=== PATIENT | female | born 1990 | race Caucasian/White ===

== ENCOUNTER 2018-03-10 17:36 | Inpatient (IN) | payer OTHER, SELFPAY ==
[2018-03-10] VITALS (11 sets, daily range): BP systolic 124–144; BP diastolic 67–85; PULSE 110–134; RESP 15–20; TEMP 35.9–39.4; O2SAT 90–100; BMI 33.5; BMI 33.6
--- NOTE | 2018-03-10 18:11 | EKG12_ITS ---
Test Reason : EXAM Blood Pressure : / mmHG Vent. Rate : 122 BPM Atrial Rate : 122 BPM P-R Int : 134 ms QRS Dur : 078 ms QT Int : 316 ms P-R-T Axes : 041 014 019 degrees QTc Int : 450 ms Sinus tachycardia Otherwise normal ECG Confirmed by SUZIE BUCK, EUFEMIA ([id number]), editor in chief REBECCA PHILLIPS ([id number] on 03/15/2018 8:42:46 AM Referred By: JIMY Confirmed By:EUFEMIA LARSEN MD
--- NOTE | 2018-03-10 18:14 | RAD_ITS ---
STUDY: X-RAY - LEFT FOOT CLINICAL: Female, 28 years old. Diabetic with bilateral foot infections. TECHNIQUE: 3 view(s) of the foot. COMPARISON: None. FINDINGS: Normal talus, calcaneus, and tarsal bones. Normal visualized subtalar, talonavicular, calcaneocuboid, tarsal and tarsometatarsal articulations. There is deformity and postsurgical change of the distal aspect of the fourth metatarsal and the proximal aspect of the proximal phalanx of the fourth metatarsal. Normal metatarsophalangeal joint of the great toe. Normal tibial and fibular sesamoid bones. Normal interphalangeal joint of the great toe. Normal phalanges of the great toe. Normal second through fifth metatarsophalangeal joints. Normal interphalangeal joints and phalanges of the lesser toes. There is marked soft tissue swelling on plantar surface of the foot adjacent to the distal aspect of the first metatarsal with soft tissue gas. Findings are likely secondary to gas-forming organisms (perhaps clostridia perfringens). RAD/Foot min 3 Views IMPRESSION: Postsurgical changes of the fourth digit. Probable abscess with gas-forming organisms in the plantar surface of the foot adjacent to the distal aspect of the first metatarsal. Electronically Signed: Rashid Ho MD at 19:45 EDT , Service support ,
--- NOTE | 2018-03-10 18:14 | RAD_ITS ---
STUDY: X-RAY - RIGHT FOOT CLINICAL: Female, 28 years old. Diabetic with foot infection. TECHNIQUE: view(s) of the foot. COMPARISON: None. FINDINGS: Normal talus, calcaneus, and tarsal bones. Normal visualized subtalar, talonavicular, calcaneocuboid, tarsal and tarsometatarsal articulations. Normal metatarsi. Normal metatarsophalangeal joint of the great toe. Normal tibial and fibular sesamoid bones. Normal interphalangeal joint of the great toe. Normal phalanges of the great toe. Normal second through fifth metatarsophalangeal joints. Normal interphalangeal joints and phalanges of the lesser toes. There is marked soft tissue swelling on the plantar surface of the foot adjacent to the calcaneus. There is also marked soft tissue swelling on the plantar surface of the foot adjacent to the head of the first metatarsal and the distal phalanx of the first metatarsal. There is soft tissue gas. Findings are compatible with infection with a gas-forming organism (likely, Clostridium perfringens). RAD/Foot min 3 Views IMPRESSION: Marked soft tissue swelling on the plantar surface of the foot with soft tissue gas most compatible with infection with a gas-forming organism. Electronically Signed: Rashid Ho MD at 19:46 EDT , Service support ,
[2018-03-10 18:40] LABS: Absolute Lymphocyte Count 2.39 X10^3/ul (0.83-4.51); Absolute Neutrophil Count 12.7 X10^3/uL (2.0-7.7); Basophil# 0.04 X10^3/uL; Basophil% 0.2 % (0-1); Eosinophil# 0.13 X10^3/uL; Eosinophils% 0.8 % (0-5); Hematocrit 34.3 % (37-47); Hemoglobin 11.4 g/dl (12.0-15.0); Lymphocyte # 2.39 X10^3/ul (4.0); Lymphocyte % 14.4 % (19-41); Mean Corp Hgb Conc 33.2 g/gl (32-36); Mean Corpuscular Hgb 26.1 pg (27.0-32.0); Mean Corpuscular Volume 78.5 fL (81-99); Mean Platelet Vol. 9.1 fl (6.2-12.0); Monocyte# 1.37 X10^3/uL; Monocyte% 8.2 % (0-10); Neutrophil # 12.67 X10^3/uL (2.7-7.7); Neutrophil % 76.2 % (47-70); POSITIVE COUNT NO; POSITIVE DIFFERENTIAL NO; POSITIVE MORPHOLOGY NO; Platelet Count 362 K/mm3 (150-450); RBC Distribution Width CV 12.6 % (11.6-14.6); RBC Distribution Width SD 36.2 fl (35.1-43.9); Red Blood Count 4.37 M/mm3 (4.2-5.4); White Blood Count 16.6 K/mm3 (4.4-11.0)
[2018-03-10 18:44] LABS: International Normalized Ratio 1.1; Prothrombin Time (Protime)PT. 14.5 SECONDS (11.7-14.9)
[2018-03-10 18:45] LABS: Partial Thromboplast Time 37.9 Seconds (24.1-36.2)
[2018-03-10] MEDS: 0.9% Normal Saline 1,000 ML 150 ML IV (18:51)
[2018-03-10 19:02] LABS: ALB/GLOB Ratio 0.6 RATIO (0.9-2.4); AST(SGOT) 5 U/L (15-37); Alanine Aminotransfer ALT/SGPT 13 U/L (13-56); Albumin, Serum 3.1 g/dL (3.2-5.0); Alkaline Phosphatase 139 U/L (45-117); Anion Gap 13 (5-15); BUN 6 mg/dL (7-18); BUN/Creat Ratio 7.1 RATIO (10-20); Chloride 93 mmol/L (98-107); Creatinine, Serum 0.85 mg/dL (0.55-1.02); EST Glomerular Filtration Rate 85 mL/min (>60); Est Glom Filt Rate - Afr Amer 103 mL/min (>60); Estimated Creatinine Clearance 106.56 ml/min; Globulin 5.4 g/dL (2.2-4.2); Glucose 383 mg/dL (74-106); Potassium 3.8 mmol/L (3.5-5.1); Protein, Total 8.5 g/dL (6.4-8.2); Sodium Level 130 mmol/L (136-145)
--- NOTE | 2018-03-10 19:10 | RAD_ITS ---
STUDY: X-RAY CHEST REASON FOR EXAM: Female, 28 years old. Sepsis. TECHNIQUE: Single frontal view of the chest. COMPARISON: None. FINDINGS: The lungs are clear and expanded. There is no demonstrated pleural abnormality. Normal size heart. Normal mediastinum and clyde. Normal visualized pulmonary arteries. Normal visualized aortic arch and descending thoracic aorta. Normal visualized thoracic spine. Normal visualized ribs, clavicles, and shoulders. There is no demonstrated abnormality of the visualized soft tissue structures of the upper abdomen. RAD/Chest 1 View (Portable) IMPRESSION: No significant abnormality identified. Electronically Signed: Rashid Ho MD at 19:42 EDT , Service support ,
[2018-03-10] MEDS: Acetaminophen 500 MG Tablet 1000 MG PO (19:13)
[2018-03-10 19:15] LABS: Lactic Acid 1.2 mmol/L (0.4-2.0); Pregnancy, Serum, hCG Quali. NEGATIVE Negative (0-9 Nonpreg)
--- NOTE | 2018-03-10 19:34 | PCM.HP.STD ---
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 insulin use: with remote computer terminal operator use Diabetes mellitus complication status: with unspecified complications Qualified Code(s): E11.8 - Type 2 diabetes mellitus with unspecified complications; Z79.4 - jail (current) use of insulin History of Present Illness Date of Admission: 03/10/18 Chief Complaint: LLE redness, edema, pain, purulent drainage from opened ulcer wound The patient is a 28 y/o F w/ PMHx: Diabetes mellitus type II (Following w/ Endocrinology [place]), Obesity noting she has lost >25 lbs, History of MRSA Infection prior, 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 ED on 03/10/18 with history of chronic RLE plantar 1st metatarsal region ulcer as well as arch ulcer following with wound care in addition to history of recent L 1st metatarsal wound in January which she notes had been healed; however, on Tuesday she noted it opened up and began to drain purulent material which worsened over the last 24 hours with onset erythema w/ streaking on day of presentation up to her knee, edema, worsened pain to the L foot with no associated prior nausea, emesis, fever of chills. 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 She has been following she notes with Wound and Endocrine in [place] prior to her move for the current semester. She notes she was originally diagnosed with Diabetes in 2015 per a physician in [place] and that her Fuse Assembler in [place] has verified that she is a type II Diabetic. She cannot recall her last HgbA1c. In the ED work-up included T103, heart rate 134, BP 144/71, respiratory rate 20, 97% on room air, CBC with WBC 16.6, hemoglobin 11.6, platelet 362 with left shift, coags with PTT 37.9 otherwise unremarkable, CMP with sodium 130, chloride 93, BUN/creatinine 6/0.85, glucose 383, lactic acid 1.2, AST/ALT 5/13, alkaline phosphatase 139, negative test, acetone negative, wound culture left foot ?2 from aspiration from blister on the L foot which yielded only yellow fluid pending per ED with added MRSA wound per hospitalist, blood culture ?2 pending per ED, plain film w/ gas along the 1st metatarsal region, EKG w/ Sinus tachycardia without acute evidence of ischemia. In the ED patient administered Tylenol, normal saline, Zyvox, cefepime. Dr. Barkley was consulted and noted intention for immediate evaluation and operative intervention. Patient with reported history of heart stopping during prior surgery for unclear reasons, she notes also follow-up evaluation with normal cardiac work-up including ECHO and repeat EKGs with requested records per ED for [employer] [facility] history. Past Medical History Past Medical History (Chronic Problems): Chronic Problems Obesity (BMI 30.0-34.9) (Chronic) Diabetes mellitus, type II (Chronic) Allergies clindamycin Allergy (Verified 03/10/18 17:37) Hives vancomycin Adverse Reaction (Verified 03/10/18 17:37) Hives Home Medications: Ambulatory Orders Medication Instructions Recorded Cephalexin [Cephalexin] 500 mg PO BID 03/10/18 Cholecalciferol (Vitamin D3) 2,000 unit PO DAILY 03/10/18 [Vitamin D3] Insulin Glargine [Lantus (BKC)] 62 units SC QHS 03/10/18 Insulin Lispro [Humalog KwikPen] 0 unit SQ TID 03/10/18 Surgical History: - - Left lower extremity podiatric surgery including 2013 removal of foreign bodies and 2016 intervention on the fourth metatarsal as well as right middle finger surgery following injury in her childhood. 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 Smoking Status: Never smoker Tobacco Use: Non-smoker Alcohol: Rare Drugs: None - *Family History Maternal History Items: - - Patient notes a maternal family history of diabetes. Paternal History Items: - - Patient notes a paternal family history of prostate cancer, hypertension and diabetes. Review of Systems Constitutional: Reports: Anorexia, Fever - No fever noted prior to current presentation but febrile in the ED upon presentation., Malaise, Weakness, Fatigue. Denies: Chills, Weight Change HEENT: Denies: Head Aches, Sinus Congestion, Sinus Drainage Cardiovascular: Denies: Chest Pain, Palpitations Respiratory: Denies: Cough, Shortness of breath at rest, Sputum production Gastrointestinal: Denies: Abdominal Pain, Nausea, Vomiting Genitourinary: Denies: Dysuria Musculoskeletal: Reports: Foot Pain. Denies: Joint Pain, Joint Tenderness Skin: Reports: Skin Changes, Wounds. Denies: Rash Neurological: Denies: Numbness, Tingling, Focal weakness Psychiatric: Denies: Anxiety, Depression, Homicidal Ideations, Suicidal Ideations Hematologic/ Lymphatic: Denies: Easy Bruising, Easy Bleeding VTE Information - Inpt Only VTE Present on Admission: No VTE Mechan Device Prophylaxis: SCD's VTE Pharm Prophylaxis ordered?: No Reason prophylaxis not ordered:: Medical Contraindication - Holding chemoprophylaxis upon admission for possible OR directly. Patient Problems: Active and Suspected Problems Sepsis (Acute) Cellulitis (Acute) Subjective: Seated upright in the ED bed, fatigued appearance, NAD. Objective: Physical Examination: General: awake, alert, oriented x 3 and cooperative, seated upright in the ED bed in no apparent distress, fatigued appearing. Skin: normal color, turgor, no icterus, cyanosis except notable BL LE wounds, RLE w/ 1st metatarsal-2nd metatarsal region chronic non-infected appearing wound in addition to plantar region wound, non-infected appearing as well as infected LLE 1st metatarsal diabetic ulcer/wound w/ purulent drainage, yellow mixed w/ blood w/ notable thickened skin around this region w/ erythema extending up from medial foot to calf w/ streaking, crepitus noted along the medial arch region, TTP, warm to touch, TTP. HEENT: AT/NC, EOMI, PERRLA, moderately dry MM, no carotid bruits or JVD noted. Lungs: CTA bilaterally, moderate effort, mild decrease BL bases, no rales, ronchi or wheezing. Heart: Tachycardic w/ regular rhythm; no gallop, rub audible. Abdomen: soft, obese, NTTP, ND, normal BS, no HSM. Extremities: no cyanosis, clubbing, see skin. Neurological: patient awake, alert, oriented x 3; cognitive function intact; pupils equally reactive to light and accomodation; cranial nerves II-XII grossly normal, moving all 4 extremities, no focal deficits, strength moderately to severely globally decreased secondary to acute presentation. Psychiatric: affect appears fatigued, response to current presentation not appropriate, does not seem concerned she may loose some of her LLE, no acute evidence of depressive or anxiety feelings but admits to recent increased anxiety with recently starting school semester. - Physical Exam Vital Signs Temp Pulse Resp BP Pulse Ox 103 F H 121 H 20 H 124/74 H 97 03/10/18 19:03 03/10/18 19:03 03/10/18 19:03 03/10/18 19:03 03/10/18 19:03 Oxygen Delivery Method Room Air Weight: 233 lb 14.567 oz Body Mass Index (BMI) 33.5 Laboratory Tests Past 24 Hrs 03/10/18 03/10/18 03/10/18 18:10 18:10 18:10 WBC 16.6 H RBC 4.37 Hgb 11.4 L Hct 34.3 L MCV 78.5 L MCH 26.1 L MCHC 33.2 RDW 12.6 RDW Differential 36.2 Plt Count 362 MPV 9.1 Immature Gran % (Auto) 0.200 Neut % (Auto) 76.2 H Lymph % (Auto) 14.4 L Motley % (Auto) 8.2 Eos % (Auto) 0.8 Baso % (Auto) 0.2 Absolute Neuts (auto) 12.7 H Absolute Lymphs (auto) 2.39 Total Counted Not Reportable PT 14.5 INR 1.1 APTT 37.9 H Sodium 130 L Potassium 3.8 Chloride 93 L Carbon Dioxide 24.0 Anion Gap 13 BUN 6 L Creatinine 0.85 Estim Creat Clear Calc 106.56 Est GFR (MDRD) Af Amer 103 Est GFR (MDRD) Non-Af 85 BUN/Creatinine Ratio 7.1 L Glucose 383 H Lactic Acid Calcium 9.0 Total Bilirubin 0.50 AST 5 L ALT 13 Alkaline Phosphatase 139 H Total Protein 8.5 H Albumin 3.1 L Globulin 5.4 H Albumin/Globulin Ratio 0.6 L Serum , Qual Acetone Level 03/10/18 03/10/18 03/10/18 18:10 18:10 18:10 WBC RBC Hgb Hct MCV MCH MCHC RDW RDW Differential Plt Count MPV Immature Gran % (Auto) Neut % (Auto) Lymph % (Auto) Motley % (Auto) Eos % (Auto) Baso % (Auto) Absolute Neuts (auto) Absolute Lymphs (auto) Total Counted PT INR APTT Sodium Potassium Chloride Carbon Dioxide Anion Gap BUN Creatinine Estim Creat Clear Calc Est GFR (MDRD) Af Amer Est GFR (MDRD) Non-Af BUN/Creatinine Ratio Glucose Lactic Acid 1.2 Calcium Total Bilirubin AST ALT Alkaline Phosphatase Total Protein Albumin Globulin Albumin/Globulin Ratio Serum , Qual NEGATIVE Acetone Level NEGATIVE Assessment/Plan All Active Problems Sepsis (Acute) Cellulitis (Acute) The patient is a 28 y/o F w/ PMHx: Diabetes mellitus type II, Obesity noting she has lost >25 lbs, History of MRSA Infection prior, 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 ED on 03/10/18 with history of chronic RLE plantar 1st metatarsal region ulcer as well as arch ulcer following with wound care in addition to history of recent L 1st metatarsal wound in January which she notes had been healed; however, on Tuesday she noted it opened up and began to drain purulent material which worsened over the last 24 hours with onset erythema w/ streaking on day of presentation up to her knee, edema, worsened pain to the L foot with no associated prior nausea, emesis, fever of chills. (1) Acute Sepsis secondary to Infected L 1st Metatarsal Diabetic Ulcer, Wound w/ Cellulitis: Requested records from [facility] to assure cardiac evaluation performed following unclear operative events appropriate prior to transitioning to OR. Following review of this material, if appropriate plan OR intervention at [facility]. If remains stable following OR if appropriate [facility] Candidate, given not severe sepsis, will admit to [facility] on telemetry, maintain on aggressive NS, pending Wound Cx, added Wound MRSA PCR, maintain on BSA given allergies w/ zyvox and cefepime pending cultures, plan repeat CBC in AM, continue affected extremity elevation above heart when seated and in bed, monitor erythema outline with VS checks with continued Podiatry evaluation in addition to ID consultation given complicated infectious/abx allergy history. Will need to be closely followed and would benefit from referral to [facility]. Given patient history of frequent BL LE wounds, may benefit aside from aggressive lifestyle interventions for vascular evaluation consideration if issues ongoing w/ wounds despite improvement in her DM control and self-care. (2) Diabetes mellitus type II, Suspect Poorly Controlled: Continue home insulin regimen, HgbA1c pending, nutrition consulted for diet and education, ADA diet, accu checks w/ ISS. Will need referral to Endocrinology locally, would be a good candidate to follow w/ [facility]. (3) Obesity: Weight loss and lifestyle changes encouraged, nutrition consulted for education and teaching given current presentation with diabetes mellitus type II suspected to be poorly controlled. (4) DVT Prophylaxis: SCDs, hold chemoprophylaxis given planned OR, following would start lovenox once cleared per Podiatry. Code Visit Inpatient E&M: 00517 Init Hosp L3
[2018-03-10] MEDS: Linezolid 600 MG 600 MG/300 ML BAG 200 MG IV (19:41)
--- NOTE | 2018-03-10 19:43 | HP.PCM_ITS ---
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 Diabetes mellitus complication status: with unspecified complications Qualified Code(s) : E11.8 - Type 2 diabetes mellitus with unspecified complications; 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 History of Present Illness Date of Admission: 03/10/18 Chief Complaint: LLE redness, edema, pain, purulent drainage from opened ulcer wound The patient is a 28 y/o F w/ PMHx: Diabetes mellitus type II (Following w/ Endocrinology [place]), Obesity noting she has lost >25 lbs, History of MRSA Infection prior, History of L 4th Metatarsal L Osteomyelitis who presents to the [facility] ED on 03/10/18 with history of chronic RLE plantar 1st metatarsal region ulcer as well as arch ulcer following with wound care in addition to history of recent L 1st metatarsal wound in January which she notes had been healed; however , on Tuesday she noted it opened up and began to drain purulent material which worsened over the last 24 hours with onset erythema w/ streaking on day of presentation up to her knee, edema, worsened pain to the L foot with no associated prior nausea, emesis, fever of chills. 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 She has been following she notes with Wound and Endocrine in [place] prior to her move for the current semester. She notes she was originally diagnosed with Diabetes in 2015 per a physician in [place] and that her Acute Care Surgeon in [place] has verified that she is a type II Diabetic. She cannot recall her last HgbA1c. In the ED work-up included T103, heart rate 134, BP 144/71, respiratory rate 20, 97% on room air, CBC with WBC 16.6, hemoglobin 11.6, platelet 362 with left shift, coags with PTT 37.9 otherwise unremarkable, CMP with sodium 130, chloride 93, BUN/creatinine 6/0.85 , glucose 383, lactic acid 1.2, AST/ALT 5/13, alkaline phosphatase 139, negative test, acetone negative, wound culture left foot ?2 from aspiration from blister on the L foot which yielded only yellow fluid pending per ED with added MRSA wound per hospitalist, blood culture ?2 pending per ED, plain film w/ gas along the 1st metatarsal region, EKG w/ Sinus tachycardia without acute evidence of ischemia. In the ED patient administered Tylenol, normal saline, Zyvox, cefepime. Dr. Barkley was consulted and noted intention for immediate evaluation and operative intervention. Patient with reported history of heart stopping during prior surgery for unclear reasons, she notes also follow-up evaluation with normal cardiac work-up including ECHO and repeat EKGs with requested records per ED for [facility] history. Past Medical History Past Medical History (Chronic Problems): Chronic Problems Obesity (BMI 30.0-34.9) (Chronic) Diabetes mellitus, type II (Chronic) Allergies clindamycin Allergy (Verified 03/10/18 17:37) Hives vancomycin Adverse Reaction (Verified 03/10/18 17:37) Hives Home Medications: Ambulatory Orders Medication Instructions Recorded Cephalexin [Cephalexin] 500 mg PO BID 03/10/18 Cholecalciferol (Vitamin D3) 2,000 unit PO DAILY 03/10/18 [Vitamin D3] Insulin Glargine [Lantus (BKC)] 62 units SC QHS 03/10/18 Insulin Lispro [Humalog KwikPen] 0 unit SQ TID 03/10/18 Surgical History: - - Left lower extremity podiatric surgery including 2013 removal of foreign bodies and 2016 intervention on the fourth metatarsal as well as right middle finger surgery following injury in her childhood. 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 Smoking Status: Never smoker Tobacco Use: Non-smoker Alcohol: Rare Drugs: None - *Family History Maternal History Items: - - Patient notes a maternal family history of diabetes. Paternal History Items: - - Patient notes a paternal family history of prostate cancer, hypertension and diabetes. Review of Systems Constitutional: Reports: Anorexia, Fever - No fever noted prior to current presentation but febrile in the ED upon presentation., Malaise, Weakness, Fatigue. Denies: Chills, Weight Change HEENT: Denies: Head Aches, Sinus Congestion, Sinus Drainage Cardiovascular: Denies: Chest Pain, Palpitations Respiratory: Denies: Cough, Shortness of breath at rest, Sputum production Gastrointestinal: Denies: Abdominal Pain, Nausea, Vomiting Genitourinary: Denies: Dysuria Musculoskeletal: Reports: Foot Pain. Denies: Joint Pain, Joint Tenderness Skin: Reports: Skin Changes, Wounds. Denies: Rash Neurological: Denies: Numbness, Tingling, Focal weakness Psychiatric: Denies: Anxiety, Depression, Homicidal Ideations, Suicidal Ideations Hematologic/ Lymphatic: Denies: Easy Bruising, Easy Bleeding VTE Information - Inpt Only VTE Present on Admission: No VTE Mechan Device Prophylaxis: SCD's VTE Pharm Prophylaxis ordered?: No Reason prophylaxis not ordered:: Medical Contraindication - Holding chemoprophylaxis upon admission for possible OR directly. Patient Problems: Active and Suspected Problems Sepsis (Acute) Cellulitis (Acute) Subjective: Seated upright in the ED bed, fatigued appearance, NAD. Objective: Physical Examination: General: awake, alert, oriented x 3 and cooperative, seated upright in the ED bed in no apparent distress, fatigued appearing. Skin: normal color, turgor, no icterus, cyanosis except notable BL LE wounds, RLE w/ 1st metatarsal-2nd metatarsal region chronic non-infected appearing wound in addition to plantar region wound, non-infected appearing as well as infected LLE 1st metatarsal diabetic ulcer/wound w/ purulent drainage, yellow mixed w/ blood w/ notable thickened skin around this region w/ erythema extending up from medial foot to calf w/ streaking, crepitus noted along the medial arch region, TTP, warm to touch, TTP. HEENT: AT/NC, EOMI, PERRLA, moderately dry MM, no carotid bruits or JVD noted. Lungs: CTA bilaterally, moderate effort, mild decrease BL bases, no rales, ronchi or wheezing. Heart: Tachycardic w/ regular rhythm; no gallop, rub audible. Abdomen: soft, obese, NTTP, ND, normal BS, no HSM. Extremities: no cyanosis, clubbing, see skin. Neurological: patient awake, alert, oriented x 3; cognitive function intact; pupils equally reactive to light and accomodation; cranial nerves II-XII grossly normal, moving all 4 extremities, no focal deficits, strength moderately to severely globally decreased secondary to acute presentation. Psychiatric: affect appears fatigued, response to current presentation not appropriate, does not seem concerned she may loose some of her LLE, no acute evidence of depressive or anxiety feelings but admits to recent increased anxiety with recently starting school semester. - Physical Exam Vital Signs Temp Pulse Resp BP Pulse Ox 103 F H 121 H 20 H 124/74 H 97 03/10/18 19:03 03/10/18 19:03 03/10/18 19:03 03/10/18 19:03 03/10/18 19:03 Oxygen Delivery Method Room Air Weight: 233 lb 14.567 oz Body Mass Index (BMI) 33.5 Laboratory Tests Past 24 Hrs 03/10/18 03/10/18 03/10/18 18:10 18:10 18:10 WBC 16.6 H RBC 4.37 Hgb 11.4 L Hct 34.3 L MCV 78.5 L MCH 26.1 L MCHC 33.2 RDW 12.6 RDW Differential 36.2 Plt Count 362 MPV 9.1 Immature Gran % (Auto) 0.200 Neut % (Auto) 76.2 H Lymph % (Auto) 14.4 L [place] % (Auto) 8.2 Eos % (Auto) 0.8 Baso % (Auto) 0.2 Absolute Neuts (auto) 12.7 H Absolute Lymphs (auto) 2.39 Total Counted Not Reportable PT 14.5 INR 1.1 APTT 37.9 H Sodium 130 L Potassium 3.8 Chloride 93 L Carbon Dioxide 24.0 Anion Gap 13 BUN 6 L Creatinine 0.85 Estim Creat Clear Calc 106.56 Est GFR (MDRD) Af Amer 103 Est GFR (MDRD) Non-Af 85 BUN/Creatinine Ratio 7.1 L Glucose 383 H Lactic Acid Calcium 9.0 Total Bilirubin 0.50 AST 5 L ALT 13 Alkaline Phosphatase 139 H Total Protein 8.5 H Albumin 3.1 L Globulin 5.4 H Albumin/Globulin Ratio 0.6 L Serum , Qual Acetone Level 03/10/18 03/10/18 03/10/18 18:10 18:10 18:10 WBC RBC Hgb Hct MCV MCH MCHC RDW RDW Differential Plt Count MPV Immature Gran % (Auto) Neut % (Auto) Lymph % (Auto) [place] % (Auto) Eos % (Auto) Baso % (Auto) Absolute Neuts (auto) Absolute Lymphs (auto) Total Counted PT INR APTT Sodium Potassium Chloride Carbon Dioxide Anion Gap BUN Creatinine Estim Creat Clear Calc Est GFR (MDRD) Af Amer Est GFR (MDRD) Non-Af BUN/Creatinine Ratio Glucose Lactic Acid 1.2 Calcium Total Bilirubin AST ALT Alkaline Phosphatase Total Protein Albumin Globulin Albumin/Globulin Ratio Serum , Qual NEGATIVE Acetone Level NEGATIVE Assessment/Plan All Active Problems Sepsis (Acute) Cellulitis (Acute) The patient is a 28 y/o F w/ PMHx: Diabetes mellitus type II, Obesity noting she has lost >25 lbs, History of MRSA Infection prior, History of L 4th Metatarsal L Osteomyelitis who presents to the [facility] ED on 03/10/18 with history of chronic RLE plantar 1st metatarsal region ulcer as well as arch ulcer following with wound care in addition to history of recent L 1st metatarsal wound in January which she notes had been healed; however, on Tuesday she noted it opened up and began to drain purulent material which worsened over the last 24 hours with onset erythema w/ streaking on day of presentation up to her knee , edema, worsened pain to the L foot with no associated prior nausea, emesis, fever of chills. (1) Acute Sepsis secondary to Infected L 1st Metatarsal Diabetic Ulcer, Wound w / Cellulitis: Requested records from [facility] to assure cardiac evaluation performed following unclear operative events appropriate prior to transitioning to OR. Following review of this material, if appropriate plan OR intervention at [facility]. If remains stable following OR if appropriate [facility] Candidate, given not severe sepsis, will admit to [facility] on telemetry, maintain on aggressive NS, pending Wound Cx, added Wound MRSA PCR, maintain on BSA given allergies w/ zyvox and cefepime pending cultures, plan repeat CBC in AM, continue affected extremity elevation above heart when seated and in bed, monitor erythema outline with VS checks with continued Podiatry evaluation in addition to ID consultation given complicated infectious/abx allergy history. Will need to be closely followed and would benefit from referral to [facility]. Given patient history of frequent BL LE wounds, may benefit aside from aggressive lifestyle interventions for vascular evaluation consideration if issues ongoing w/ wounds despite improvement in her DM control and self-care. (2) Diabetes mellitus type II, Suspect Poorly Controlled: Continue home insulin regimen, HgbA1c pending, nutrition consulted for diet and education, ADA diet, accu checks w/ ISS. Will need referral to Endocrinology locally, would be a good candidate to follow w/ [facility]. (3) Obesity: Weight loss and lifestyle changes encouraged, nutrition consulted for education and teaching given current presentation with diabetes mellitus type II suspected to be poorly controlled. (4) DVT Prophylaxis: SCDs, hold chemoprophylaxis given planned OR, following would start lovenox once cleared per Podiatry. Code Visit Inpatient E&M: 22937 Init Hosp L3
[2018-03-10 19:56] LABS: Bedside Glucose 370 mg/dL (70-110)
--- NOTE | 2018-03-10 21:03 | CON.PCM_ITS ---
Reason for Consult Date of Consultation: 03/10/18 Reason for Consultation: Bilateral foot infection History of Present Illness: The patient is a 28 year old female with history of diabetes presented to the ER today for bilateral foot infection, left significantly worsen than right. She relates to history of osteomyelitis to the left 4th metatarsal, was treated with surgery and long course of IV antibiotics last year in [place] - she relates foot healed and did well. She relates she has now developed ulcerations to both feet, she claims the left foot ulcer just started a couple days ago, and just today turned red and swollen, which she relates is why she came to the ER today. She does relate the left foot is painful. Temp is 103F, WBC elevated at 16, left foot xrays with gas in the tissues. Right foot with no gas on xrays. She relates she is originally from [facility] [place], here for college at [employer]. She relates she lives in [facility] with [facility]. She does not want me to call her family tonneil. She does not recall her last ha1c. Past Medical History Past Medical History (Chronic Problems): Chronic Problems Obesity (BMI 30.0-34.9) (Chronic) Diabetes mellitus, type II (Chronic) Allergies clindamycin Allergy (Verified 03/10/18 17:37) Hives vancomycin Allergy (Verified 03/10/18 20:10) Hives/makes my heart race Home Medications: Ambulatory Orders Medication Instructions Recorded Cephalexin [Cephalexin] 500 mg PO BID 03/10/18 Cholecalciferol (Vitamin D3) 2,000 unit PO DAILY 03/10/18 [Vitamin D3] Insulin Glargine [Lantus (BKC)] 62 units SC QHS 03/10/18 Insulin Lispro [Humalog KwikPen] 0 unit SQ TID 03/10/18 Surgical History: - - Left lower extremity podiatric surgery including 2013 removal of foreign bodies and 2017 intervention on the fourth metatarsal as well as right middle finger surgery following injury in her childhood. 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 Smoking Status: Never smoker Tobacco Use: Non-smoker Alcohol: Rare Drugs: None - *Family History Maternal History Items: - - Patient notes a maternal family history of diabetes. Paternal History Items: - - Patient notes a paternal family history of prostate cancer, hypertension and diabetes. Review of Systems Constitutional: Denies: Chills, Fever Gastrointestinal: Denies: Nausea, Vomiting Musculoskeletal: Reports: - - hx of osteomyelitis left foot Skin: Reports: Wounds Patient Problems: Active and Suspected Problems Sepsis (Acute) Cellulitis (Acute) - Physical Exam General: Alert, Oriented x3, Cooperative, No apparent distress Extremities: Capillary Refill Less than 3 Seconds, No Calf Tenderness, Edema - bilateral foot - left worse, Peripheral Pulses Normal, - - Significant abscess and cellulitis with blistering necrosis to the medial foot consistent with gas gangrene left foot, there is ulceration sub 1st metatarsal head left foot with necrosis and nonviable tissue along with drainage purulence with very minimal pressure, there is maloder present - foot very tense and hot, ulceration is down to muscle/tendon and probes deep in foot, there is lymphangitic streaking present. There is crepitus to the foot c/w gas in the tissues. Right foot with ulceration plantar hallux with localized cellulitis to the hallux ulcer down to subcutaneous tissue, there is ulceration sub 4th metatarsal head with cellulitis to the plantar arch as well as to the dorsal central forefoot, ulcer down to muscle tendon - there is significant nonviable tissue to the ulceration sites - there is drainage c/w infection, there is some gas in the tissues at level of the 4th met ulcerations. Sensation diminished consistent with peripheral neuropathy, motor function intact to the foot/ankle. Vascular status intact to bilateral foot, with CFT < 2 seconds to all toes bilateral and normal pedal pulses bilateral. There is no POP or pain on ROM to the right foot or ankle. She does pain pain to the forefoot of the left foot, no pain to the left ankle. No evidence of DVT bilateral. Psych/Mental Status: Normal Affect, Appropriate, Alert and oriented to time, place, person, mood and affect Vital Signs Temp Pulse Resp BP Pulse Ox 101.8 F H 126 H 20 H 143/84 H 97 03/10/18 19:52 03/10/18 20:03 03/10/18 20:03 03/10/18 20:03 03/10/18 20:03 Oxygen Delivery Method Room Air Weight: 106.1 kg Body Mass Index (BMI) 33.5 Laboratory Tests Past 24 Hrs 03/10/18 03/10/18 03/10/18 18:10 18:10 18:10 WBC 16.6 H RBC 4.37 Hgb 11.4 L Hct 34.3 L MCV 78.5 L MCH 26.1 L MCHC 33.2 RDW 12.6 RDW Differential 36.2 Plt Count 362 MPV 9.1 Immature Gran % (Auto) 0.200 Neut % (Auto) 76.2 H Lymph % (Auto) 14.4 L [place] % (Auto) 8.2 Eos % (Auto) 0.8 Baso % (Auto) 0.2 Absolute Neuts (auto) 12.7 H Absolute Lymphs (auto) 2.39 Total Counted Not Reportable PT 14.5 INR 1.1 APTT 37.9 H Sodium 130 L Potassium 3.8 Chloride 93 L Carbon Dioxide 24.0 Anion Gap 13 BUN 6 L Creatinine 0.85 Estim Creat Clear Calc 106.56 Est GFR (MDRD) Af Amer 103 Est GFR (MDRD) Non-Af 85 BUN/Creatinine Ratio 7.1 L Glucose 383 H Lactic Acid Calcium 9.0 Total Bilirubin 0.50 AST 5 L ALT 13 Alkaline Phosphatase 139 H Total Protein 8.5 H Albumin 3.1 L Globulin 5.4 H Albumin/Globulin Ratio 0.6 L Serum , Qual Acetone Level S.aureus Protein A PCR MRSA (PCR) 03/10/18 03/10/18 03/10/18 18:10 18:10 18:10 WBC RBC Hgb Hct MCV MCH MCHC RDW RDW Differential Plt Count MPV Immature Gran % (Auto) Neut % (Auto) Lymph % (Auto) [place] % (Auto) Eos % (Auto) Baso % (Auto) Absolute Neuts (auto) Absolute Lymphs (auto) Total Counted PT INR APTT Sodium Potassium Chloride Carbon Dioxide Anion Gap BUN Creatinine Estim Creat Clear Calc Est GFR (MDRD) Af Amer Est GFR (MDRD) Non-Af BUN/Creatinine Ratio Glucose Lactic Acid 1.2 Calcium Total Bilirubin AST ALT Alkaline Phosphatase Total Protein Albumin Globulin Albumin/Globulin Ratio Serum , Qual NEGATIVE Acetone Level NEGATIVE S.aureus Protein A PCR MRSA (PCR) 03/10/18 20:00 WBC RBC Hgb Hct MCV MCH MCHC RDW RDW Differential Plt Count MPV Immature Gran % (Auto) Neut % (Auto) Lymph % (Auto) [place] % (Auto) Eos % (Auto) Baso % (Auto) Absolute Neuts (auto) Absolute Lymphs (auto) Total Counted PT INR APTT Sodium Potassium Chloride Carbon Dioxide Anion Gap BUN Creatinine Estim Creat Clear Calc Est GFR (MDRD) Af Amer Est GFR (MDRD) Non-Af BUN/Creatinine Ratio Glucose Lactic Acid Calcium Total Bilirubin AST ALT Alkaline Phosphatase Total Protein Albumin Globulin Albumin/Globulin Ratio Serum , Qual Acetone Level S.aureus Protein A PCR Pending MRSA (PCR) Pending POC Glucose 03/10/18 19:49 POC Glucose 370 H Assessment/Plan All Active Problems Sepsis (Acute) Cellulitis (Acute) Necrotic ulceration left sub 1st metatarsal head down to muscle/tendon Abscess, cellulitis, severe infection w/ gas gangrene left foot Nonviable Ulceration sub 1st metatarsal right foot down to muscle/tendon w/ cellulitis Abscess, cellulitis, severe infection w/ gas gangrene left foot Diabetes with peripheral neuropathy Sepsis Reviewed diagnostic data. Reviewed findings with patient. Given the findings we discussed incision and drainage with debridement of all nonviable, infected and necrotic soft tissue and bone from left foot with possible partial foot amputation, we also discussed incision and drainage with debridement of soft tissue/ulceration right foot - this was discussed with her in detail. Reviewed the rationale of this with her, as well as the possible benefits vs risks, goals , expectations. Advised patient she is at for limb loss as well as loss of life given the infection. Patient expressed understanding and agreement and elected to proceed forward with surgical intervention as noted above. We will plan to proceed with this as soon as we can. The patient will also be admitted for IV antibiotics and medical management.
[2018-03-10 21:55] LABS: M R Staph aureus DNA By PCR Negative (Negative); Probe Check PASS; Specimen Processing Control PASS; Staph aureus DNA By PCR POSITIVE (Negative)
[2018-03-10] MEDS: Bupivacaine Mpf 0.5% 30 ML VIAL (22:37)
--- NOTE | 2018-03-10 22:48 | RAD_ITS ---
STUDY: X-RAY - LEFT FOOT CLINICAL: Female, 28 years old. Postoperative evaluation after recent debridement. TECHNIQUE: 3 view(s) of the foot. COMPARISON: Radiographs of the left foot dated March 10, 2018. FINDINGS: The tarsal bones have a grossly normal appearance. The intertarsal articulations are within normal limits. There is deformity of the distal fourth metatarsal with what appears to be a partial amputation. A the first, second, third and fifth metatarsals have a grossly normal appearance. Normal metatarsophalangeal joint of the great toe. Normal tibial and fibular sesamoid bones. Normal interphalangeal joint of the great toe. Normal phalanges of the great toe. Normal second through fifth metatarsophalangeal joints. Normal interphalangeal joints and phalanges of the lesser toes. There is soft tissue swelling and emphysema but the medial foot surrounding the first metatarsal. This appears to have increased since the previous study probably related to surgical debridement. A dressing is also visible. RAD/Foot min 3 Views IMPRESSION: Postoperative changes of the medial foot with residual soft tissue emphysema. Electronically Signed: Sandee Torres MD at 3:29 EDT , Service support ,
--- NOTE | 2018-03-10 22:55 | OP.PCM_ITS ---
Report of Operation Date of Procedure: 03/10/18 Pre-Operative Diagnosis: Gas gangrene, abscess, ulceration down muscle/tendon, cellulitis left foot. Gas gangrene, abscess, ulceration down muscle/tendon, cellulitis right foot Post-Operative Diagnosis: Same Surgery/Procedure Performed:: Incision and drainage with debridement of all nonviable, infected, necrotic tissue bilateral foot Type of Anesthesia:: MAC, Spinal Specimen's removed: 1. Deep culture right foot sent to microbiology. 2. Deep culture left foot sent to microbiology Estimated Blood Loss (mL): 30mL Description of Procedure: Indications: This is a 28 year female with diabetes who presents to the ER with bilateral foot ulcerations and infections - left worse than right. She relates these have been worsening. In the ER it was found there is gas in the tissues on both the left and right feet. She had at temperature of 103F, and was found to be tachycardic with increased WBC. ESR and CRP increased as well. There is purulent drainage and maloder. Due to the findings we discussed the treatment options, and she elected to proceed forward with debridement of all nonviable, infected, necrotic tissue from the feet, along with incision and drainage due to the significant infections. This was discussed with her in great detail, reviewed the rationale of this with her in detail, reviewed the possible benefits vs risks. She was advised the risks include but are not limited to pain , deformity, further infections, recurrence, needed for further surgery, numbness, weakness, complex regional pain syndrome, poor cosmetic result, transfer lesions, inability to walk or function, bleeding, blood clots, loss of limb, loss of life. This was discussed with her, and she agree, she was able to repeat this back. The goals, expectations, typical healing time and alternative options were all discussed with her. The consent form was reviewed with her and she freely signed it. No guarantees were given nor implied. Operative Procedure: The patient was brought back into the operating room and was placed on the operating room in the supine position. She was careful secured to the operating room with a safety belt around her waist. The patient was already on IV antibiotics from the ER. The patient received anesthesia per the anesthesia service. Well padded pneumatic tourniquets were applied around bilateral ankles. Bilateral feet were scrubbed, prepped, and draped int he usual aseptic fashion. Further attention was directed to the right foot. where again there was noted to be a significant ulceration to the plantar hallux with cellulitis, drainage, necrosis and nonviable tissue to the ulcer and borders of the ulceration, there was edema present and some undermining of the margins, there was no probe to bone or joint. It measured 0.8cm x 0.7cm and down to the subcutaneous tissue layer prior to debridement. There was also a significant ulceration plantar 4th metatarsal head with cellulitis, drainage, necrosis and nonviable tissue to the ulcer and borders of the ulceration, there was edema present and some undermining of the margins, there was a localized abscess present at this level as well and ulcer probed to the dorsal tissue space, there was no probe to bone or joint through. There was cellulitis present to the dorsal forefoot. This ulcerations measured 0.9cm x 1.3cm and down to the subcutaneous tissue layer, muscle and tendon prior to debridement. The right ankle pneumatic tourniquet was inflated to 250mmHg after the right foot was elevated for several minutes. The right hallux ulceration was debrided using a 15 blade removing all nonviable , necrotic and infected tissue down to healthy granular viable base and margins , this was debrided in excisional fashion down to the subcutaneous tissue layer. It measured 1.2cm x 1.3cm and down to the subcutaneous tissue layer post debridement. The right plantar sub 4th metatarsal head ulceration was debrided using a 15 blade removing all nonviable, necrotic and infected tissue down to healthy granular viable base and margins, this was debrided in excisional fashion down to the subcutaneous tissue layer as well as muscle and tendon layer. It was debrided down to healthy viable tissue, and the abscess was excised using a 15 blade. Since it probed to the dorsal forefoot an incision was made at this level to allow for further drainage. It measured 1.2cm x 2cm and down to the subcutaneous tissue layer and muscle/tendon layers post debridement. The bone to the area was not involved and did not appear infected. The sites were flushed out with copious amounts of normal saline solution. The tissues applied healthy and viable at this time. The sites were paced with 1/4 inch gauze packing. The pneumatic tourniquet was deflated, there was immediate return of perfusion to the foot and all 5 toes of the foot with normal CFT and intact pedal pulses. The tissues were bleeding normally. A dressing of adaptic, 4x4 gauze, kerlix and ashok bandage was applied. Total tourniquet time on the right was 10 minutes. Further attention was directed to the left foot. where again there was noted to be a severe infection to the medial forefoot extending to the midfoot, there was a significant ulceration to the plantar 1st metatarsal head with cellulitis , purulent drainage, necrosis and nonviable tissue to the ulcer and borders of the ulceration, there was edema present and some undermining of the margins, there was a large visible abscess present with significant necrosis secondard to gas infection to the medial plantar foot, there was maloder, blistering, crepitus, fluctuance present. There was streaking up ankle and distal leg due to the infection. The foot was very tense and hot. The ulceration measured 0.9cm x 1cm and down to the subcutaneous tissue layer and muscle and tendon layers, with some probing to the dorsal 1st intermetatarsal space prior to debridement. However the area of abscess and necrosis secondary to the gas infection was much larger and encompassed an area of 10.5cm x 6.5cm to the plantar medial foot. The left ankle pneumatic tourniquet was inflated to 250mmHg after the left foot was elevated for several minutes. The ulceration and infection site were incised, drained and debrided using a 15 blade removing all nonviable, necrotic and infected tissue down to healthy granular viable base and margins, this was debrided in excisional fashion down to the subcutaneous tissue layer as well as muscle and tendon layer. The abscess was excised with a 15 blade. Since it probed to the dorsal forefoot an incision was made at this level to allow for further drainage. It measured 10.5cm x 6.5cm and down to the subcutaneous tissue layer and deep muscle and tendon layers post debridement. The bone to the area was not involved and did not appear infected. The site was flushed out with copious amounts of normal saline solution. The tissues applied healthy and viable at this time. The sites were paced with 1/4 inch gauze packing. The pneumatic tourniquet was deflated, there was immediate return of perfusion to the foot and all 5 toes of the foot with normal CFT and intact pedal pulses. The remaining tissues were bleeding normally. A dressing of adaptic, 4x4 gauze, kerlix and ashok bandage was applied. Total tourniquet time on the left was 27 minutes. also of note prior to dressing application a total of 20mL of 0.5% Bupivacaine plain was given as a local block around the sites to help with post operative pain control. The patient tolerated the above procedure well and anesthesia well with no complications. The patient was transported from the operating room to the recovery room with vital signs stable and in good condition. Post operative orders were placed. Patient will be followed as an inpatient. Grafts/Implants Used: None - Complications None
--- NOTE | 2018-03-10 23:05 | RAD_ITS ---
STUDY: X-RAY - RIGHT ANKLE REASON FOR EXAM: Female, 28 years old. Postop debridement. Infection of bilateral feet. TECHNIQUE: 3 view(s) of the ankle. COMPARISON: X-ray right foot. FINDINGS: Normal visualized distal tibia and fibula. Normal medial and lateral malleoli. Normal tibiotalar articulation and ankle mortise. There is a posterior calcaneal enthesophyte at the insertion site of the Achilles' tendon. Otherwise normal visualized talus and calcaneus. The visualized subtalar, talonavicular, calcaneocuboid and tarsal articulations are normal. The soft tissue structures are unremarkable. RAD/Ankle min 3 Views IMPRESSION: Normal x-ray examination of the ankle. Electronically Signed: Rodolfo Gutierrez MD at 2:36 EDT , Service support ,
--- NOTE | 2018-03-10 23:07 | RAD_ITS ---
STUDY: X-RAY - RIGHT FOOT CLINICAL: Female, 28 years old. Follow-up after postoperative debridement. TECHNIQUE: 3 view(s) of the foot. COMPARISON: Radiographs of the right foot dated March 10, 2018 time stamped at 7:16 PM. FINDINGS: Normal talus, calcaneus, and tarsal bones. The intertarsal articulations have mild degenerative changes. Normal metatarsi. Normal metatarsophalangeal joint of the great toe. Normal tibial and fibular sesamoid bones. Normal interphalangeal joint of the great toe. Normal phalanges of the great toe. Normal second through fifth metatarsophalangeal joints. Normal interphalangeal joints and phalanges of the lesser toes. There is a soft tissue defect plantar to the first metatarsophalangeal joint in the previous location of soft tissue emphysema consistent with the recent surgical debridement. There is no demonstrated fracture. RAD/Foot min 3 Views IMPRESSION: Postoperative changes of the soft tissues plantar to the metatarsophalangeal joints consistent with history of recent surgical debridement. Electronically Signed: Sandee Torres MD at 3:11 EDT , Service support ,
--- NOTE | 2018-03-10 23:20 | RAD_ITS ---
STUDY: X-RAY - LEFT ANKLE REASON FOR EXAM: Female, 28 years old. Postoperative assessment TECHNIQUE: Three view(s) of the ankle were obtained. COMPARISON: None. FINDINGS: Bones: There are no acute osseous abnormalities. Joints: The visualized joints are unremarkable. Soft tissues: There is moderate soft tissue swelling medially. There are surgical changes in the foot, dictated separately. RAD/Ankle min 3 Views IMPRESSION: There are no acute osseous abnormalities in the left ankle. There is moderate medial soft tissue swelling. Electronically Signed: Marcela Junior MD at 2:07 EDT Tel Direct: [phone], Service support ,
[2018-03-10 23:46] LABS: Bedside Glucose 399 mg/dL (70-110)
--- NOTE | 2018-03-10 23:49 | ED.VISSUMM ---
- ER Visit Summary Date of Service: 03/10/18 Chief Complaint: Diabetic foot infection History of Present Illness: The patient is a 28 F who states that beginning Tuesday she had some redness developing on the left instep of her foot. She states now she knows that there is a severe infection. She is a diabetic and she tells me that she has had osteomyelitis of the fourth metatarsal in the past. She notes bilateral diabetic foot ulcers. She denies any fevers. 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 Physical Examination: Febrile at 103 heart rate of 134. Blood pressure 144/71 Gen: Well-nourished well-developed Head: Normocephalic atraumatic Eyes: Perrl EOMI ENT: TMs clear no rhinorrhea moist mucous membranes Neck: Supple no lymphadenopathy no JVD nontender CVS: Regular rate rhythm no murmurs normal S1-S2 Respiratory: No distress clear to auscultation bilaterally chest nontender Abdomen: Soft nontender nondistended normal bowel sounds no masses Back: Nontender Extremity: Left leg demonstrates lymphangitic streaking. This is up to the level of the knee. The left foot is swollen and erythematous particularly medially. There is a large bullae over the instep. There is a diabetic foot ulcer with pus draining from it. The right foot demonstrates diabetic ulcer on the plantar surface with some surrounding erythema. Skin: Normal color no rash Neuro: alert orientated ?3 CN II-XII intact normal strength sensation reflexes gait cerebellar Psych: Normal affect normal mood Test Results: White count at 16. Lactic acid 1.2. Ketones negative. test negative. Glucose 383. EKG sinus at a rate of 122. Foot x-rays demonstrates gas formation along the first metatarsal. Blood cultures were obtained. Emergency Department Course and Treatment: Patient had IV started and received linezolid and cefepime due to allergies. Cultures were obtained. She received fluids and Tylenol. I spoke with Dr. Barkley and Dr. Sidhu. will be taking the patient to the operating room. Impression: 1. Diabetic foot cellulitis with gas gangrene 2. Sepsis This note was generated with [employer] dictation software. It may contain incorrect words, spelling, and punctuation that were not noted in review of the chart prior to signing ED Disposition - Plan for ED Patient: Disposition: Acute Care Hospital [facility] Chief Complaint: Cellulitis
[2018-03-10] MEDS: Insulin Lispro 100 UNIT/ML INSULN.PEN 10 UNIT SC (23:51)
--- NOTE | 2018-03-10 23:53 | ED.DCSUM_ITS ---
- ER Visit Summary Date of Service: 03/10/18 Chief Complaint: Diabetic foot infection History of Present Illness: The patient is a 28 F who states that beginning Tuesday she had some redness developing on the left instep of her foot. She states now she knows that there is a severe infection. She is a diabetic and she tells me that she has had osteomyelitis of the fourth metatarsal in the past. She notes bilateral diabetic foot ulcers. She denies any fevers. 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 Physical Examination: Febrile at 103 heart rate of 134. Blood pressure 144/71 Gen: Well-nourished well-developed Head: Normocephalic atraumatic Eyes: Perrl EOMI ENT: TMs clear no rhinorrhea moist mucous membranes Neck: Supple no lymphadenopathy no JVD nontender CVS: Regular rate rhythm no murmurs normal S1-S2 Respiratory: No distress clear to auscultation bilaterally chest nontender Abdomen: Soft nontender nondistended normal bowel sounds no masses Back: Nontender Extremity: Left leg demonstrates lymphangitic streaking. This is up to the level of the knee. The left foot is swollen and erythematous particularly medially. There is a large bullae over the instep. There is a diabetic foot ulcer with pus draining from it. The right foot demonstrates diabetic ulcer on the plantar surface with some surrounding erythema. Skin: Normal color no rash Neuro: alert orientated ?3 CN II-XII intact normal strength sensation reflexes gait cerebellar Psych: Normal affect normal mood Test Results: White count at 16. Lactic acid 1.2. Ketones negative. test negative. Glucose 383. EKG sinus at a rate of 122. Foot x- rays demonstrates gas formation along the first metatarsal. Blood cultures were obtained. Emergency Department Course and Treatment: Patient had IV started and received linezolid and cefepime due to allergies. Cultures were obtained. She received fluids and Tylenol. I spoke with Dr. Barkley and Dr. Sidhu. will be taking the patient to the operating room. Impression: 1. Diabetic foot cellulitis with gas gangrene 2. Sepsis This note was generated with [employer] dictation software. It may contain incorrect words, spelling, and punctuation that were not noted in review of the chart prior to signing ED Disposition - Plan for ED Patient: Disposition: Acute Care Hospital [facility] Chief Complaint: Cellulitis
[2018-03-10 23:58] LABS: Erythrocyte Sedimentation Rate 81 mm/hr (0-20)
[2018-03-11] VITALS (14 sets, daily range): BP systolic 114–138; BP diastolic 68–81; PULSE 103–125; RESP 16–18; TEMP 36.7–39.3; O2SAT 93–96; BMI 33.5
[2018-03-11 00:12] LABS: M R Staph aureus DNA By PCR Negative (Negative); Probe Check PASS; Specimen Processing Control PASS; Staph aureus DNA By PCR NEGATIVE (Negative); Staph aureus DNA By PCR POSITIVE (Negative)
[2018-03-11 00:15] LABS: Hemoglobin A1c 12.9 % (4.2-6.3)
[2018-03-11] MEDS: 0.9% Normal Saline 1,000 ML 150 ML IV ×2 (00:15→06:23)
[2018-03-11 00:16] LABS: Magnesium 1.8 mg/dL (1.6-2.6)
[2018-03-11] MEDS: Famotidine 20 MG Tablet PO ×3 (00:44→21:14)
[2018-03-11] MEDS: oxyCODONE 5 MG Tablet PO ×3 (03:00→17:03)
[2018-03-11] MEDS: Insulin Lispro 100 UNIT/ML INSULN.PEN SC ×3 (06:39→21:14)
[2018-03-11 06:46] LABS: Bedside Glucose 253 mg/dL (70-110)
--- NOTE | 2018-03-11 08:51 | NURSING ---
numerous staff have sonia to see pt and attempt to draw labs, now using vein finder and were successful
--- NOTE | 2018-03-11 09:02 | PCM.PN.HOSP ---
Patient Problems: Active and Suspected Problems Sepsis (Acute) Cellulitis (Acute) Subjective: Patient was seen and examined. Feels better. Pain is less than 5 out of 10. Denies any fever, chills, SOB. Blood cultures from the ED reportedly growing gram-positive cocci ?1 bottle Vitals/I&O's: Vital Signs Temp Pulse Resp BP Pulse Ox 98.1 F 118 H 16 114/68 94 03/11/18 04:55 03/11/18 08:30 03/11/18 04:55 03/11/18 04:55 03/11/18 07:25 Oxygen Delivery Method Room Air Weight: 106 kg Body Mass Index (BMI) 33.5 Finger Stick Blood Glucose 399 Intake and Output for Last 24 Hours 03/09/18 03/10/18 03/11/18 23:59 23:59 23:59 Intake Total 2900 / 2900 680 / 680 Output Total 700 / 700 Balance 2900 / 2900 -20 / -20 General: Alert, Oriented x3, Cooperative, No apparent distress HEENT: Atraumatic, PERRLA, EOMI, Normocephalic Oral: Moist Mucosa Neck: Supple Lungs: Clear to auscultation, Normal air movement Cardiovascular: Regular rate, Regular Rhythm, Normal S1, Normal S2, No murmurs Abdomen: Bowel Sounds Present, Soft, Non Tender, Non-Distended, No Hepato-splenomegaly Extremities: No edema, - - Bilateral feet dressed and CHAVA-wraps. Skin: No rashes Musculoskeletal: No Tenderness to Palpation of Joints or Extremities Lymphatic: No Cervical, Supraclavicular, or Inguinal Adenopathy Neurological: Cranial nerves II-XII grossly intact, Neuro grossly intact Psych/Mental Status: Normal Affect, Appropriate Laboratory Results 03/10/18 22:59: S.aureus Protein A PCR POSITIVE H, MRSA (PCR) Negative 03/10/18 22:59: S.aureus Protein A PCR NEGATIVE, MRSA (PCR) Negative 03/10/18 23:12: POC Glucose 399 H 03/11/18 06:38: POC Glucose 253 H Current Medications Acetaminophen (Tylenol) 650 mg PO Q6H PRN PRN PRN Reason: Mild Pain (scale 0-3)/T>100.7 Al Hydroxide/Mg Hydroxide (Mylanta Ii) 30 ml PO Q6H PRN PRN PRN Reason: Gastric burning Cholecalciferol (Vitamin D) 2,000 unit PO DAILY [facility] Docusate Sodium (Colace) 200 mg PO BID PRN PRN PRN Reason: Constipation Famotidine (Pepcid) 20 mg PO BID [facility] Last Admin: 03/11/18 00:44 Dose: 20 mg Sodium Chloride () 1,000 mls @ 150 mls/hr IV .Q6H40M [facility] Last Admin: 03/11/18 06:23 Dose: 150 mls/hr Cefepime HCl 2 gm/ Sodium (Chloride) 100 mls @ 200 mls/hr IV Q8 [facility] Last Admin: 03/11/18 06:23 Dose: 200 mls/hr Linezolid (Zyvox 600mg) 600 mg in 300 mls @ 200 mls/hr IV Q12 [facility] Insulin Glargine (Lantus (Bk)) 62 units SC QHS [facility] Last Admin: 03/11/18 00:45 Dose: 62 u Insulin Human Lispro (Humalog Kwikpen ([facility])) 0 unit SC ACHS [facility] PRN Reason: Protocol Last Admin: 03/11/18 06:39 Dose: 4 u Magnesium Hydroxide (Milk Of Magnesia) 30 ml PO DAILY PRN PRN PRN Reason: Constipation Morphine Sulfate () 2 - 4 mg IV Q3H PRN PRN PRN Reason: Severe Pain (pain scale 6-10) Morphine Sulfate () 1 - 2 mg IV Q4H PRN PRN PRN Reason: Moderate Pain (pain scale 4-5) Morphine Sulfate () 2 - 4 mg IV Q3H PRN PRN PRN Reason: Severe Pain (pain scale 6-10) Nutritional Formula (Lactose Free) (Glucerna Shake) 120 ml PO 4X/DAY [facility] Ondansetron HCl (Zofran) 4 mg IV Q8H PRN PRN PRN Reason: NAUSEA Oxycodone HCl (Oxyir) 5 mg PO Q4H PRN PRN PRN Reason: Moderate Pain (pain scale 4-5) Last Admin: 03/11/18 03:00 Dose: 5 mg Polyethylene Glycol (Miralax) 17 gm PO DAILY [facility] Promethazine HCl (Phenergan) 12.5 mg IV Q6H PRN PRN PRN Reason: NAUSEA/VOMITING Sodium Chloride () 5 - 30 ml IV UD PRN PRN Reason: SALINE FLUSH Medical Necessity - Tobacco Use Smoking Status: Never smoker Tobacco Use: Non-smoker Assessment/Plan All Active Problems Sepsis (Acute) Cellulitis (Acute) 28-year-old female with past medical history of type II DM, obesity, MRSA, history of left fourth metatarsal osteomyelitis admitted on 07/21/2017 with chronic right lower extremity plantar ulcer. She had reported drainage from her chronic wound associated with edema and increasing pain to the left foot without fever or chills. Xray of the left foot had showed gas along the fifth metatarsal region. She underwent I&D and debridement of all nonviable infected necrotic tissue in bilateral feet, gas gangrene/abscess and ulceration down to the muscular tendons were found in both feet. 1. Sepsis secondary to infected bilateral feet abscess with gas gangrene, status post I&D and wound debridement, podiatry following, Being managed on IV cefepime and Zyvox, ID consulted, patient appears improved, leukocytosis improved, no fevers seen Wound reportedly improved per podiatry, will continue to monitor 2. Gram-positive cocci bacteremia ?1, will await further speciation and with for the other blood culture to see if it will grow any organisms 3. Type II DM, uncontrolled, noncompliant with medications, HbA1c is 12.9, will continue on insulin, sugars are not controlled Resumed patient on her pre-meal 10 units lispro, continue home Lantus 62 units, continue insulin sliding scale 4. Obesity, diet and exercise recommended 5. DVT prophylaxis with Lovenox subcu Code Visit Inpatient E&M: 59203 Subs Hosp L2
[2018-03-11 09:26] LABS: Absolute Lymphocyte Count 1.38 X10^3/ul (0.83-4.51); Absolute Neutrophil Count 8.9 X10^3/uL (2.0-7.7); Basophil# 0.04 X10^3/uL; Basophil% 0.4 % (0-1); Eosinophil# 0.08 X10^3/uL; Eosinophils% 0.7 % (0-5); Hemoglobin 9.6 g/dl (12.0-15.0); Lymphocyte # 1.38 X10^3/ul (4.0); Lymphocyte % 12.2 % (19-41); Mean Corp Hgb Conc 33.1 g/gl (32-36); Mean Corpuscular Hgb 26.4 pg (27.0-32.0); Mean Corpuscular Volume 79.7 fL (81-99); Mean Platelet Vol. 8.9 fl (6.2-12.0); Neutrophil # 8.86 X10^3/uL (2.7-7.7); Neutrophil % 78.3 % (47-70); Platelet Count 301 K/mm3 (150-450); RBC Distribution Width CV 12.4 % (11.6-14.6); RBC Distribution Width SD 35.1 fl (35.1-43.9); Red Blood Count 3.64 M/mm3 (4.2-5.4); White Blood Count 11.3 K/mm3 (4.4-11.0)
[2018-03-11 09:27] LABS: Anion Gap 12 (5-15); BUN 5 mg/dL (7-18); Calcium,Total 8.3 mg/dL (8.5-10.1); Chloride 101 mmol/L (98-107); Creatinine, Serum 0.56 mg/dL (0.55-1.02); EST Glomerular Filtration Rate 138 mL/min (>60); Est Glom Filt Rate - Afr Amer 167 mL/min (>60); Estimated Creatinine Clearance 161.74 ml/min; Glucose 250 mg/dL (74-106); POSITIVE COUNT NO; POSITIVE DIFFERENTIAL NO; POSITIVE MORPHOLOGY YES; Potassium 3.6 mmol/L (3.5-5.1); Sodium Level 135 mmol/L (136-145)
[2018-03-11 09:28] LABS: Differential Indicated SCAN CRITERIA MET
[2018-03-11] MEDS: 0.9% Normal Saline 1,000 ML 100 ML IV (09:30)
[2018-03-11] MEDS: Polyethylene Glycol 3350 17 GM PACKET PO (09:35)
[2018-03-11] MEDS: Acetaminophen 325 MG Tablet 650 MG PO ×3 (09:38→20:37)
[2018-03-11] MEDS: Linezolid 600 MG 600 MG/300 ML BAG 200 MG IV ×2 (09:51→22:20)
[2018-03-11 09:56] LABS: Platelet Estimate ADEQUATE (ADEQ)
[2018-03-11 09:57] LABS: Hypochromasia 1+; Microcytosis 1+
[2018-03-11] MEDS: Insulin Lispro 100 UNIT/ML INSULN.PEN 10 UNIT SC ×2 (11:00→17:04)
--- NOTE | 2018-03-11 11:06 | PCM.PROGNOTE ---
Patient Problems: Active and Suspected Problems Sepsis (Acute) Cellulitis (Acute) Subjective: Patient was seen this morning for follow up on bilateral foot infection - left worse than right. s/p I+D and debridement of infection bilateral foot. Patient relates she is doing well, no fever, chills, nausea or vomiting. She was resting comfortably in bed. She has no new complaints at this time. WBC is coming down, now 11.3; blood culture showing gram positive cocci in chains so far. Ha1c was noted to 12.9 consistent with uncontrolled diabetes. Objective: Reviewed right and left foot/ankle xrays s/p debridement - findings c/w debridement as outlined in operative report. Otherwise no acute issues, no gas noted to the hindfoot or ankle bilateral. - Physical Exam General: Alert, Oriented x3, Cooperative, No apparent distress Extremities: Capillary Refill Less than 3 Seconds, No Calf Tenderness, Peripheral Pulses Normal, - - s/p debridement left foot plantar medial foot down to muscle and tendon - tissues viable and intact - there is no purulence, no maloder, no fluctuance, no remaining abscess, cellulitis is resolving, streaking improved, and patient reports significantly less pain, edema is less, no evidence of acute ischemia with vascular status intact to the foot. Right foot s/p debridement of plantar hallux ulceration as well as sub 4th metatarsal head with viable healthy tissues, no visible abscess, no fluctuance or crepitus, cellulitis less, edema less, and overall improvement noted, no purulence or maloder, no evidence of acute ischemia and vascular status intact. No new ulcerations, no new areas of infection noted bilateral foot/ankle. Musculoskeletal: No Tenderness to Palpation of Joints or Extremities - of the foot/ankle bilateral Psych/Mental Status: Alert and oriented to time, place, person, mood and affect Vital Signs Temp Pulse Resp BP Pulse Ox 98.1 F 115 H 18 131/71 H 96 03/11/18 10:12 03/11/18 10:12 03/11/18 10:12 03/11/18 10:12 03/11/18 10:12 Oxygen Delivery Method Room Air Weight: 106 kg Body Mass Index (BMI) 33.5 Finger Stick Blood Glucose 399 Intake and Output for Last 24 Hours 03/09/18 03/10/18 03/11/18 23:59 23:59 23:59 Intake Total 2900 / 2900 680 / 680 Output Total 700 / 700 Balance 2900 / 2900 -20 / -20 Laboratory Tests Past 24 Hrs 03/10/18 03/10/18 03/11/18 22:59 22:59 08:52 WBC 11.3 H RBC 3.64 L Hgb 9.6 L Hct 29.0 L MCV 79.7 L MCH 26.4 L MCHC 33.1 RDW 12.4 RDW Differential 35.1 Plt Count 301 MPV 8.9 Immature Gran % (Auto) 0.400 Neut % (Auto) 78.3 H Lymph % (Auto) 12.2 L [place] % (Auto) 8.0 Eos % (Auto) 0.7 Baso % (Auto) 0.4 Absolute Neuts (auto) 8.9 H Absolute Lymphs (auto) 1.38 Total Counted Not Reportable Platelet Estimate ADEQUATE Hypochromasia 1+ Microcytosis 1+ Sodium Potassium Chloride Carbon Dioxide Anion Gap BUN Creatinine Estim Creat Clear Calc Est GFR (MDRD) Af Amer Est GFR (MDRD) Non-Af BUN/Creatinine Ratio Glucose Calcium S.aureus Protein A PCR POSITIVE H NEGATIVE MRSA (PCR) Negative Negative 03/11/18 08:52 WBC RBC Hgb Hct MCV MCH MCHC RDW RDW Differential Plt Count MPV Immature Gran % (Auto) Neut % (Auto) Lymph % (Auto) [place] % (Auto) Eos % (Auto) Baso % (Auto) Absolute Neuts (auto) Absolute Lymphs (auto) Total Counted Platelet Estimate Hypochromasia Microcytosis Sodium 135 L Potassium 3.6 Chloride 101 Carbon Dioxide 22.0 Anion Gap 12 BUN 5 L Creatinine 0.56 Estim Creat Clear Calc 161.74 Est GFR (MDRD) Af Amer 167 Est GFR (MDRD) Non-Af 138 BUN/Creatinine Ratio 9.0 L Glucose 250 H Calcium 8.3 L S.aureus Protein A PCR MRSA (PCR) POC Glucose 03/11/18 03/10/18 06:38 23:12 POC Glucose 253 H 399 H Medical Necessity - Tobacco Use Smoking Status: Never smoker Tobacco Use: Non-smoker Assessment/Plan All Active Problems Sepsis (Acute) Cellulitis (Acute) Necrotic ulceration left sub 1st metatarsal head down to muscle/tendon Abscess, cellulitis, severe infection w/ gas gangrene left foot Nonviable Ulceration sub 4th metatarsal right foot down to muscle/tendon w/ cellulitis Ulceration plantar right hallux with cellulitis Abscess, cellulitis, severe infection w/ gas gangrene right foot Diabetes (uncontrolled) with peripheral neuropathy Sepsis Reviewed diagnostic data. Reviewed findings with patient. Clinically feet with noted improvement, cellulitis receding and infection resolving. Continue to follow cultures, continue with IV antibiotics at this time (patient on cefepime and linezolid). Infectious Disease has been consulted. Continue with local wound care: wet to dry dressing changes consisting of normal saline solution - pack at ulcer/debridement sites with overlying gauze, kerlix, and ashok dressing - change BID. Will likely proceed with wound vac in future. No weightbearing left foot, ok to put weight on right heel for transitions. Keep feet elevated. Reviewed with patient the importance of proper blood sugar control to optimize healing and to optimize foot/ankle health. Medical management per medicine team. Podiatry will continue to follow.
--- NOTE | 2018-03-11 11:35 | CASEMGMT ---
AYLEEN TAMAYO Face to Face with patient for initial transition planning/care coordination assessment. AYLEEN TAMAYO introduced self and role at [facility]. Patient sitting on edge of bed, alert and oriented. Patient willing to participate in assessment and is able to answer all questions appropriately. Care providers, pharmacy, and demographics verified. See link attached. Patient wishes to discharge home, denies need for home health at this time. Patient states she has no further needs or concerns at this time. CM to follow for discharge planning needs that may arise. Disposition Plan: Patient to discharge home with follow-up plans in place. Will continue to monitor Ivelisse OSORIO, RN, CM
[2018-03-11 16:55] LABS: Bedside Glucose 210 mg/dL (70-110)
[2018-03-11] MEDS: Enoxaparin 40 MG/0.4 ML Syringe SC (17:04)
[2018-03-11] MEDS: Ibuprofen 400 MG Tablet PO (21:13)
[2018-03-11 21:21] LABS: Bedside Glucose 223 mg/dL (70-110)
[2018-03-12] VITALS (15 sets, daily range): BP systolic 129–149; BP diastolic 75–93; PULSE 93–115; RESP 18; TEMP 37–38.3; O2SAT 91–99
[2018-03-12] MEDS: 0.9% Normal Saline 1,000 ML 100 ML IV (01:57)
--- NOTE | 2018-03-12 07:32 | PN_ITS ---
Patient Problems: Active and Suspected Problems Sepsis (Acute) Cellulitis (Acute) Subjective: Patient was seen and examined. Had a Tmax of 102.7F, remains slightly tachycardic. Complains of feeling weak Blood sugars remain uncontrolled Objective: Physical exam: General: Alert, Oriented x3, Cooperative, No apparent distress HEENT: Atraumatic, PERRLA, EOMI, Normocephalic Oral: Moist Mucosa Neck: Supple Lungs: Clear to auscultation, Normal air movement Cardiovascular: Regular rate, Regular Rhythm, Normal S1, Normal S2, No murmurs Abdomen: Bowel Sounds Present, Soft, Non Tender, Non-Distended, No Hepato- splenomegaly Extremities: No edema, - - Bilateral feet dressed and CHAVA-wraps. Skin: No rashes Musculoskeletal: No Tenderness to Palpation of Joints or Extremities Lymphatic: No Cervical, Supraclavicular, or Inguinal Adenopathy Neurological: Cranial nerves II-XII grossly intact, Neuro grossly intact Psych/Mental Status: Normal Affect, Appropriate Vitals/I&O's: Vital Signs Temp Pulse Resp BP Pulse Ox 99.0 F 93 18 141/93 H 94 03/12/18 06:34 03/12/18 04:05 03/12/18 01:44 03/12/18 01:44 03/12/18 01:44 Oxygen Delivery Method Room Air Weight: 106 kg Body Mass Index (BMI) 33.5 Finger Stick Blood Glucose 399 Intake and Output for Last 24 Hours 03/10/18 03/11/18 03/12/18 23:59 23:59 23:59 Intake Total 2900 / 2900 4258 / 4258 4362 / 4362 Output Total 3300 / 3300 2900 / 2900 Balance 2900 / 2900 958 / 958 1462 / 1462 Microbiology Past 72 Hours 03/10/18 22:59 Wound Abcess - Left Foot Gram Stain - Final 03/10/18 22:59 Wound - Right Foot Gram Stain - Final Laboratory Results 03/11/18 08:52: WBC 11.3 H, RBC 3.64 L, Hgb 9.6 L, Hct 29.0 L, MCV 79.7 L, MCH 26.4 L, MCHC 33.1, RDW 12.4, RDW Differential 35.1, Plt Count 301, MPV 8.9, Immature Gran % (Auto) 0.400, Neut % (Auto) 78.3 H, Lymph % (Auto) 12.2 L, [place] % (Auto) 8.0, Eos % (Auto) 0.7, Baso % (Auto) 0.4, Absolute Neuts (auto) 8.9 H, Absolute Lymphs (auto) 1.38, Total Counted Not Reportable, Platelet Estimate ADEQUATE, Hypochromasia 1+, Microcytosis 1+ 03/11/18 08:52: Sodium 135 L, Potassium 3.6, Chloride 101, Carbon Dioxide 22.0, Anion Gap 12, BUN 5 L, Creatinine 0.56, Estim Creat Clear Calc 161.74, Est GFR ( MDRD) Af Amer 167, Est GFR (MDRD) Non-Af 138, BUN/Creatinine Ratio 9.0 L, Glucose 250 H, Calcium 8.3 L 03/11/18 16:49: POC Glucose 210 H 03/11/18 21:11: POC Glucose 223 H Current Medications Acetaminophen (Tylenol) 650 mg PO Q6H PRN PRN PRN Reason: Mild Pain (scale 0-3)/T>100.7 Last Admin: 03/11/18 20:37 Dose: 650 mg Al Hydroxide/Mg Hydroxide (Mylanta Ii) 30 ml PO Q6H PRN PRN PRN Reason: Gastric burning Albuterol/Ipratropium (Duoneb) 3 ml INHALATION Q4H PRN PRN PRN Reason: wheezing/cough Cholecalciferol (Vitamin D) 2,000 unit PO DAILY [facility] Last Admin: 03/11/18 09:35 Dose: 2,000 unit Docusate Sodium (Colace) 200 mg PO BID PRN PRN PRN Reason: Constipation Enoxaparin Sodium (Lovenox) 40 mg SC DAILY [facility] Last Admin: 03/11/18 17:04 Dose: 40 mg Famotidine (Pepcid) 20 mg PO BID [facility] Last Admin: 03/11/18 21:14 Dose: 20 mg Cefepime HCl 2 gm/ Sodium (Chloride) 100 mls @ 200 mls/hr IV Q8 [facility] Last Admin: 03/12/18 06:26 Dose: 200 mls/hr Linezolid (Zyvox 600mg) 600 mg in 300 mls @ 200 mls/hr IV Q12 [facility] Last Admin: 03/11/18 22:20 Dose: 200 mls/hr Sodium Chloride () 1,000 mls @ 100 mls/hr IV .Q10H [facility] Last Admin: 03/12/18 01:57 Dose: 100 mls/hr Insulin Glargine (Lantus (Bkc)) 62 units SC QHS [facility] Last Admin: 03/11/18 21:14 Dose: 62 u Insulin Human Lispro (Humalog Kwikpen (Bkc)) 0 unit SC ACHS [facility] PRN Reason: Protocol Last Admin: 03/11/18 21:14 Dose: 4 u Insulin Human Lispro (Humalog Kwikpen (Bkc)) 10 unit SC TIDAC [facility] Last Admin: 03/11/18 17:04 Dose: 10 u Magnesium Hydroxide (Milk Of Magnesia) 30 ml PO DAILY PRN PRN PRN Reason: Constipation Morphine Sulfate () 2 - 4 mg IV Q3H PRN PRN PRN Reason: Severe Pain (pain scale 6-10) Morphine Sulfate () 1 - 2 mg IV Q4H PRN PRN PRN Reason: Moderate Pain (pain scale 4-5) Morphine Sulfate () 2 - 4 mg IV Q3H PRN PRN PRN Reason: Severe Pain (pain scale 6-10) Nutritional Formula (Lactose Free) (Glucerna Shake) 120 ml PO 4X/DAY [facility] Last Admin: 03/11/18 21:13 Dose: Not Given Ondansetron HCl (Zofran) 4 mg IV Q8H PRN PRN PRN Reason: NAUSEA Oxycodone HCl (Oxyir) 5 mg PO Q4H PRN PRN PRN Reason: Moderate Pain (pain scale 4-5) Last Admin: 03/11/18 17:03 Dose: 5 mg Polyethylene Glycol (Miralax) 17 gm PO DAILY [facility] Last Admin: 03/11/18 09:35 Dose: 17 gm Promethazine HCl (Phenergan) 12.5 mg IV Q6H PRN PRN PRN Reason: NAUSEA/VOMITING Sodium Chloride () 5 - 30 ml IV UD PRN PRN Reason: SALINE FLUSH Medical Necessity - Tobacco Use Smoking Status: Never smoker Tobacco Use: Non-smoker Assessment/Plan All Active Problems Sepsis (Acute) Cellulitis (Acute) 28-year-old female with past medical history of type II DM, obesity, MRSA, history of left fourth metatarsal osteomyelitis admitted on 03/10/2018 with chronic right lower extremity plantar ulcer. She had reported drainage from her chronic wound associated with edema and increasing pain to the left foot without fever or chills. Xray of the left foot had showed gas along the fifth metatarsal region. She underwent I&D and debridement of all nonviable infected necrotic tissue in bilateral feet, gas gangrene/abscess and ulceration down to the muscular tendons were found in both feet. 1. Sepsis secondary to infected bilateral feet abscess with gas gangrene, status post I&D and wound debridement, podiatry following, Wound cultures growing staph aureus, alpha hemolytic strep, on IV cefepime and Zyvox, ID consulted, her temperature yesterday, BC count is back to normal, will continue on same IV cefepime and Zyvox 2. Alphahemolytic streptococcal bacteremia ?1, 2nd blood culture is still pending, will continue antibiotics and wait on cultures to see if this was a contaminant 3. Type II DM, uncontrolled, noncompliant with medications, HbA1c is 12.9, blood sugars are uncontrolled, will increase home Lantus to 65 units nightly, also 14 units lispro pre-meal, and continue with Accu-Cheks with insulin sliding scale. 4. Obesity, diet and exercise recommended 5. DVT prophylaxis with Lovenox subcu Code Visit Inpatient E&M: 61677 Subs Hosp L2
[2018-03-12 08:00] LABS: Absolute Lymphocyte Count 1.48 X10^3/ul (0.83-4.51); Absolute Neutrophil Count 4.9 X10^3/uL (2.0-7.7); Basophil# 0.04 X10^3/uL; Basophil% 0.5 % (0-1); Eosinophil# 0.17 X10^3/uL; Eosinophils% 2.3 % (0-5); Hemoglobin 9.8 g/dl (12.0-15.0); Lymphocyte # 1.48 X10^3/ul (4.0); Lymphocyte % 19.7 % (19-41); Mean Corp Hgb Conc 32.7 g/gl (32-36); Mean Corpuscular Hgb 25.9 pg (27.0-32.0); Mean Corpuscular Volume 79.4 fL (81-99); Monocyte# 0.89 X10^3/uL; Monocyte% 11.8 % (0-10); Neutrophil # 4.92 X10^3/uL (2.7-7.7); Neutrophil % 65.4 % (47-70); Platelet Count 297 K/mm3 (150-450); RBC Distribution Width CV 12.7 % (11.6-14.6); RBC Distribution Width SD 36.3 fl (35.1-43.9); Red Blood Count 3.78 M/mm3 (4.2-5.4); White Blood Count 7.5 K/mm3 (4.4-11.0)
[2018-03-12 08:01] LABS: POSITIVE COUNT NO; POSITIVE DIFFERENTIAL NO; POSITIVE MORPHOLOGY NO
[2018-03-12 08:11] LABS: Bedside Glucose 257 mg/dL (70-110)
[2018-03-12 08:13] LABS: Anion Gap 10 (5-15); BUN 6 mg/dL (7-18); BUN/Creat Ratio 9.6 RATIO (10-20); Calcium,Total 8.5 mg/dL (8.5-10.1); Chloride 105 mmol/L (98-107); Creatinine, Serum 0.63 mg/dL (0.55-1.02); EST Glomerular Filtration Rate 120 mL/min (>60); Est Glom Filt Rate - Afr Amer 145 mL/min (>60); Estimated Creatinine Clearance 143.77 ml/min; Glucose 247 mg/dL (74-106); Potassium 3.7 mmol/L (3.5-5.1); Sodium Level 138 mmol/L (136-145)
--- NOTE | 2018-03-12 09:52 | PN_ITS ---
Patient Problems: Active and Suspected Problems Sepsis (Acute) Cellulitis (Acute) Subjective: Patient seen this morning for follow up of bilateral feet. She had 102.7 F fever overnight. Otherwise no other acute events. She was resting in bed. She relates she has no appetite, otherwise denies current fever, chills, nausea or vomiting. - Physical Exam General: Alert, Oriented x3, Cooperative, No apparent distress Extremities: Capillary Refill Less than 3 Seconds, No Calf Tenderness, Peripheral Pulses Normal - Hair present to toes bilateral., - - s/p debridement left foot plantar medial foot down to muscle and tendon - tissues viable and intact - there is no purulence, no maloder, no fluctuance, no remaining abscess , cellulitis continues to resolve, streaking continues to resolve, edema is less , no evidence of acute ischemia with vascular status intact to the foot. Right foot s/p debridement of plantar hallux ulceration as well as sub 4th metatarsal head with viable healthy tissues, no visible abscess, no fluctuance or crepitus , cellulitis resolving, edema less, and overall continued improvement noted, no purulence or maloder, no evidence of acute ischemia and vascular status intact. Dry dime sized ulceration to the right medial ankle down to superficial subcutaneous tissue, no erythema, no fluctuance, no abscess, no drainage, no evidence of deep infection. No new ulcerations, no new areas of infection noted bilateral foot/ankle. Musculoskeletal: No Tenderness to Palpation of Joints or Extremities - bilateral foot/ankle. Motor function intact to toes, foot/ankle bilateral. Psych/Mental Status: Normal Affect, Alert and oriented to time, place, person, mood and affect Vital Signs Temp Pulse Resp BP Pulse Ox 99.0 F 96 18 141/93 H 91 03/12/18 06:34 03/12/18 07:56 03/12/18 01:44 03/12/18 01:44 03/12/18 07:45 Oxygen Delivery Method Room Air Weight: 106 kg Body Mass Index (BMI) 33.5 Finger Stick Blood Glucose 399 Intake and Output for Last 24 Hours 03/10/18 03/11/18 03/12/18 23:59 23:59 23:59 Intake Total 2900 / 2900 4258 / 4258 4362 / 4362 Output Total 3300 / 3300 2900 / 2900 Balance 2900 / 2900 958 / 958 1462 / 1462 Microbiology Past 72 Hours 03/10/18 22:59 Gram Stain - Final Wound Abcess - Left Foot 03/10/18 22:59 Gram Stain - Final Wound - Right Foot Laboratory Tests Past 24 Hrs 03/11/18 03/12/18 03/12/18 08:52 07:44 07:44 WBC 7.5 RBC 3.78 L Hgb 9.8 L Hct 30.0 L MCV 79.4 L MCH 25.9 L MCHC 32.7 RDW 12.7 RDW Differential 36.3 Plt Count 297 MPV 9.0 Immature Gran % (Auto) 0.300 Neut % (Auto) 65.4 Lymph % (Auto) 19.7 [place] % (Auto) 11.8 H Eos % (Auto) 2.3 Baso % (Auto) 0.5 Absolute Neuts (auto) 4.9 Absolute Lymphs (auto) 1.48 Total Counted Not Reportable Not Reportable Platelet Estimate ADEQUATE Hypochromasia 1+ Microcytosis 1+ Sodium 138 Potassium 3.7 Chloride 105 Carbon Dioxide 23.0 Anion Gap 10 BUN 6 L Creatinine 0.63 Estim Creat Clear Calc 143.77 Est GFR (MDRD) Af Amer 145 Est GFR (MDRD) Non-Af 120 BUN/Creatinine Ratio 9.6 L Glucose 247 H Calcium 8.5 POC Glucose 03/12/18 03/11/18 03/11/18 08:04 21:11 16:49 POC Glucose 257 H 223 H 210 H Medical Necessity - Tobacco Use Smoking Status: Never smoker Tobacco Use: Non-smoker Assessment/Plan All Active Problems Sepsis (Acute) Cellulitis (Acute) Necrotic ulceration left sub 1st metatarsal head down to muscle/tendon Abscess, cellulitis, severe infection w/ gas gangrene left foot Nonviable Ulceration sub 4th metatarsal right foot down to muscle/tendon w/ cellulitis Ulceration plantar right hallux with cellulitis Abscess, cellulitis, severe infection w/ gas gangrene right foot Ulceration to subcutaneous tissue medial right ankle Diabetes (uncontrolled) with peripheral neuropathy Sepsis Reviewed diagnostic data. Reviewed findings with patient. Currently temp is 99F , WBC is normal. Clinically feet with continued improvement, cellulitis continues ro resolve. Continue to follow cultures, continue with IV antibiotics at this time (patient on cefepime and linezolid). Infectious Disease has been consulted. Continue with local wound care: wet to dry dressing changes consisting of normal saline solution - pack at ulcer/debridement sites with overlying gauze, kerlix, and ashok dressing - change BID. Will likely proceed with wound vac tomorrow. Keep ulcerations and debridement sites offloaded at all times. No weightbearing left foot, ok to put weight on right heel for transitions. Keep feet elevated. Due to chronic ulcerations a noninvasive arterial lower extremity study was been ordered. Have reviewed with patient the importance of proper blood sugar control to optimize healing and to optimize foot/ankle health. Medical management per medicine team. Podiatry will continue to follow.
[2018-03-12] MEDS: Insulin Lispro 100 UNIT/ML INSULN.PEN 10 UNIT SC ×2 (09:57→12:36)
[2018-03-12] MEDS: Morphine 2 MG/ML Syringe IV (10:06)
[2018-03-12] MEDS: Linezolid 600 MG 600 MG/300 ML BAG 200 MG IV ×2 (10:07→23:08)
[2018-03-12] MEDS: Enoxaparin 40 MG/0.4 ML Syringe SC (10:16)
[2018-03-12] MEDS: Famotidine 20 MG Tablet PO ×2 (10:17→23:08)
[2018-03-12 12:15] LABS: Bedside Glucose 273 mg/dL (70-110)
[2018-03-12] MEDS: Insulin Lispro 100 UNIT/ML INSULN.PEN SC ×3 (12:36→23:07)
[2018-03-12] MEDS: oxyCODONE 5 MG Tablet PO ×2 (14:37→20:07)
[2018-03-12] MEDS: Acetaminophen 325 MG Tablet 650 MG PO (17:00)
[2018-03-12] MEDS: Insulin Lispro 100 UNIT/ML INSULN.PEN 14 UNIT SC (17:10)
[2018-03-12 18:11] LABS: Bedside Glucose 245 mg/dL (70-110)
[2018-03-12] MEDS: 0.9% Normal Saline 1,000 ML 75 ML IV (19:50)
[2018-03-12] MEDS: 0.9% NaCl Peripheral Flush Adult/Peds IV (23:20)
[2018-03-12 23:30] LABS: Bedside Glucose 166 mg/dL (70-110)
[2018-03-13] VITALS (13 sets, daily range): BP systolic 128–146; BP diastolic 77–95; PULSE 95–110; RESP 16–20; TEMP 36.8–37.1; O2SAT 96–100
[2018-03-13] MEDS: oxyCODONE 5 MG Tablet PO ×5 (01:37→21:30)
--- NOTE | 2018-03-13 05:41 | PCM.PROGNOTE ---
Patient Problems: Active and Suspected Problems Sepsis (Acute) Cellulitis (Acute) Subjective: This 28-year-old female seen bedside status post widespread soft tissue debridement secondary to infection and sepsis. She is afebrile overnight. She denies fever, chill, nausea, vomiting, chest pain, shortness of breath, calf pain. Her right foot pain is 3 out of 10 and left is 5 out of 10. - Physical Exam General: Alert, Oriented x3, Cooperative Extremities: No cyanosis, Capillary Refill Less than 3 Seconds, No Calf Tenderness - Negative [place] and [place], Edema, Peripheral Pulses Normal Skin: Ulcer/ Wound - No purulence, no odor, no streaking. There is peripheral inflammation the medial left foot and medial right foot exposed ulcer sites. There is exposed tendon that appears to be healthy and granular subcutaneous tissue to bilateral foot. There is an additional granular base of first metatarsal head ulcer on the right foot also., - - The peripheral skin is atrophic and hairless to bilateral foot Musculoskeletal: No Tenderness to Palpation of Joints or Extremities, Muscle Wasting, - - Active range of motion digits ?10 Neurological: - - Her sensation is intact with wound manipulation and this is tender Psych/Mental Status: Normal Affect, Appropriate Vital Signs Temp Pulse Resp BP Pulse Ox 98.4 F 105 H 18 137/92 H 98 03/13/18 01:31 03/13/18 04:07 03/13/18 01:31 03/13/18 01:31 03/13/18 01:31 Oxygen Delivery Method Room Air Weight: 106 kg Body Mass Index (BMI) 33.5 Finger Stick Blood Glucose 399 Intake and Output for Last 24 Hours 03/11/18 03/12/18 03/13/18 23:59 23:59 23:59 Intake Total 4258 / 4258 6805 / 6805 1336 / 1336 Output Total 3300 / 3300 4900 / 4900 600 / 600 Balance 958 / 958 1905 / 1905 736 / 736 Microbiology Past 72 Hours 03/10/18 22:22 Gram Stain - Final Abs - Right Foot Wound Culture - Preliminary Mixed Gram Positive Organisms 03/10/18 22:18 Gram Stain - Preliminary Wound - Right Foot Wound Culture - Preliminary Mixed Gram Positive Organisms Laboratory Tests Past 24 Hrs 03/12/18 03/12/18 07:44 07:44 WBC 7.5 RBC 3.78 L Hgb 9.8 L Hct 30.0 L MCV 79.4 L MCH 25.9 L MCHC 32.7 RDW 12.7 RDW Differential 36.3 Plt Count 297 MPV 9.0 Immature Gran % (Auto) 0.300 Neut % (Auto) 65.4 Lymph % (Auto) 19.7 [place] % (Auto) 11.8 H Eos % (Auto) 2.3 Baso % (Auto) 0.5 Absolute Neuts (auto) 4.9 Absolute Lymphs (auto) 1.48 Total Counted Not Reportable Sodium 138 Potassium 3.7 Chloride 105 Carbon Dioxide 23.0 Anion Gap 10 BUN 6 L Creatinine 0.63 Estim Creat Clear Calc 143.77 Est GFR (MDRD) Af Amer 145 Est GFR (MDRD) Non-Af 120 BUN/Creatinine Ratio 9.6 L Glucose 247 H Calcium 8.5 POC Glucose 03/12/18 03/12/18 03/12/18 23:00 17:03 12:06 POC Glucose 166 H 245 H 273 H 03/12/18 08:04 POC Glucose 257 H Medical Necessity - Tobacco Use Smoking Status: Never smoker Tobacco Use: Non-smoker Assessment/Plan All Active Problems Sepsis (Acute) Cellulitis (Acute) Necrotic ulceration left sub 1st metatarsal head down to muscle/tendon Abscess, cellulitis, severe infection w/ gas gangrene left foot now s/p debridement and I & D Nonviable Ulceration sub 4th metatarsal right foot down to muscle/tendon w/ cellulitis Ulceration plantar right hallux with cellulitis Abscess, cellulitis, severe infection w/ gas gangrene right foot now s/p debridement and I & D Ulceration to subcutaneous tissue medial right ankle Diabetes (uncontrolled) with peripheral neuropathy Sepsis Reviewed diagnostic data. Reviewed findings with patient. Afebrile overnight. WBC 7.5. Clinically feet with continued improvement, cellulitis continues to resolve. Continue to follow cultures, continue with IV antibiotics at this time (patient on cefepime and linezolid). Infectious Disease has been consulted. Continue with local wound care: left foot wound vac and right foot valorie. No weightbearing left foot, ok to put weight on right heel for transitions. Keep feet elevated. Due to chronic ulcerations a noninvasive arterial lower extremity study was been ordered and this is pending. Have reviewed with patient the importance of proper blood sugar control to optimize healing and to optimize foot/ankle health. Medical management per medicine team. Podiatry will continue to follow while in house. To follow up at the wound healing center at time of discharge. Addie Simpson DPM, [facility] [phone]
[2018-03-13] MEDS: 0.9% Normal Saline 1,000 ML 75 ML IV ×2 (06:25→21:10)
[2018-03-13 06:55] LABS: Absolute Lymphocyte Count 1.95 X10^3/ul (0.83-4.51); Absolute Neutrophil Count 3.8 X10^3/uL (2.0-7.7); Basophil# 0.04 X10^3/uL; Basophil% 0.6 % (0-1); Eosinophil# 0.17 X10^3/uL; Eosinophils% 2.6 % (0-5); Hematocrit 26.6 % (37-47); Hemoglobin 8.6 g/dl (12.0-15.0); Lymphocyte # 1.95 X10^3/ul (4.0); Lymphocyte % 29.6 % (19-41); Mean Corp Hgb Conc 32.3 g/gl (32-36); Mean Corpuscular Hgb 25.5 pg (27.0-32.0); Mean Corpuscular Volume 78.9 fL (81-99); Mean Platelet Vol. 8.4 fl (6.2-12.0); Monocyte# 0.59 X10^3/uL; Neutrophil # 3.82 X10^3/uL (2.7-7.7); Platelet Count 232 K/mm3 (150-450); RBC Distribution Width CV 12.9 % (11.6-14.6); RBC Distribution Width SD 37.2 fl (35.1-43.9); Red Blood Count 3.37 M/mm3 (4.2-5.4); White Blood Count 6.6 K/mm3 (4.4-11.0)
[2018-03-13 06:56] LABS: POSITIVE COUNT NO; POSITIVE DIFFERENTIAL NO; POSITIVE MORPHOLOGY NO
[2018-03-13 07:24] LABS: Anion Gap 11 (5-15); BUN 4 mg/dL (7-18); BUN/Creat Ratio 8.1 RATIO (10-20); Calcium,Total 8.3 mg/dL (8.5-10.1); Chloride 105 mmol/L (98-107); Creatinine, Serum 0.49 mg/dL (0.55-1.02); EST Glomerular Filtration Rate 158 mL/min (>60); Est Glom Filt Rate - Afr Amer 192 mL/min (>60); Estimated Creatinine Clearance 184.84 ml/min; Glucose 168 mg/dL (74-106); Potassium 3.2 mmol/L (3.5-5.1); Sodium Level 138 mmol/L (136-145)
[2018-03-13] MEDS: Insulin Lispro 100 UNIT/ML INSULN.PEN SC ×2 (09:18→12:35)
[2018-03-13] MEDS: Enoxaparin 40 MG/0.4 ML Syringe SC (09:22)
[2018-03-13] MEDS: Linezolid 600 MG 600 MG/300 ML BAG 200 MG IV ×2 (09:23→21:12)
[2018-03-13] MEDS: Famotidine 20 MG Tablet PO ×2 (09:23→21:08)
--- NOTE | 2018-03-13 09:35 | PCM.PN.HOSP ---
Patient Problems: Active and Suspected Problems Sepsis (Acute) Cellulitis (Acute) Subjective: Patient is a 28-year-old lady with history of diabetes mellitus type 2 diagnosed at age 25, history of left foot metatarsal osteomyelitis admitted on 03/10/2018 with right foot infection with associated drainage and pain. Imaging studies obtained on admission demonstrated gas along the fifth metatarsal region patient underwent incision and drainage and debridement of all nonviable infected necrotic tissue. 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 SKIN: As described above Vitals/I&O's: Vital Signs Temp Pulse Resp BP Pulse Ox 98.7 F 103 H 20 H 128/77 H 100 03/13/18 08:51 03/13/18 08:59 03/13/18 08:59 03/13/18 08:51 03/13/18 08:51 Oxygen Delivery Method Room Air Weight: 106 kg Body Mass Index (BMI) 33.5 Finger Stick Blood Glucose 399 Intake and Output for Last 24 Hours 03/11/18 03/12/18 03/13/18 23:59 23:59 23:59 Intake Total 4258 / 4258 6805 / 6805 2126 / 2126 Output Total 3300 / 3300 4900 / 4900 800 / 800 Balance 958 / 958 1905 / 1905 1326 / 1326 Microbiology Past 72 Hours 03/10/18 22:18 Wound - Right Foot Gram Stain - Final 03/10/18 22:18 Wound - Right Foot Wound Culture - Preliminary Mixed Gram Positive Organisms 03/10/18 22:22 Abs - Right Foot Gram Stain - Final 03/10/18 22:22 Abs - Right Foot Wound Culture - Preliminary Mixed Gram Positive Organisms Laboratory Results 03/12/18 12:06: POC Glucose 273 H 03/12/18 17:03: POC Glucose 245 H 03/12/18 23:00: POC Glucose 166 H 03/13/18 06:40: WBC 6.6, RBC 3.37 L, Hgb 8.6 L, Hct 26.6 L, MCV 78.9 L, MCH 25.5 L, MCHC 32.3, RDW 12.9, RDW Differential 37.2, Plt Count 232, MPV 8.4, Immature Gran % (Auto) 0.200, Neut % (Auto) 58.0, Lymph % (Auto) 29.6, [place] % (Auto) 9.0, Eos % (Auto) 2.6, Baso % (Auto) 0.6, Absolute Neuts (auto) 3.8, Absolute Lymphs (auto) 1.95, Total Counted Not Reportable 03/13/18 06:40: Sodium 138, Potassium 3.2 L, Chloride 105, Carbon Dioxide 22.0, Anion Gap 11, BUN 4 L, Creatinine 0.49 L, Estim Creat Clear Calc 184.84, Est GFR (MDRD) Af Amer 192, Est GFR (MDRD) Non-Af 158, BUN/Creatinine Ratio 8.1 L, Glucose 168 H, Calcium 8.3 L Current Medications Acetaminophen (Tylenol) 650 mg PO Q6H PRN PRN PRN Reason: Mild Pain (scale 0-3)/T>100.7 Last Admin: 03/12/18 17:00 Dose: 650 mg Al Hydroxide/Mg Hydroxide (Mylanta Ii) 30 ml PO Q6H PRN PRN PRN Reason: Gastric burning Albuterol/Ipratropium (Duoneb) 3 ml INHALATION Q4H PRN PRN PRN Reason: wheezing/cough Cholecalciferol (Vitamin D) 2,000 unit PO DAILY [facility] Last Admin: 03/13/18 09:18 Dose: 2,000 unit Docusate Sodium (Colace) 200 mg PO BID PRN PRN PRN Reason: Constipation Enoxaparin Sodium (Lovenox) 40 mg SC DAILY [facility] Last Admin: 03/13/18 09:22 Dose: 40 mg Famotidine (Pepcid) 20 mg PO BID [facility] Last Admin: 03/13/18 09:23 Dose: 20 mg Cefepime HCl 2 gm/ Sodium (Chloride) 100 mls @ 200 mls/hr IV Q8 [facility] Last Admin: 03/13/18 06:22 Dose: 200 mls/hr Linezolid (Zyvox 600mg) 600 mg in 300 mls @ 200 mls/hr IV Q12 [facility] Last Admin: 03/13/18 09:23 Dose: 200 mls/hr Sodium Chloride () 1,000 mls @ 75 mls/hr IV .[id number] [facility] Last Admin: 03/13/18 06:25 Dose: 75 mls/hr Insulin Glargine (Lantus (Bkc)) 65 units SC QHS [facility] Last Admin: 03/12/18 23:08 Dose: 65 units Insulin Human Lispro (Humalog Kwikpen (Bkc)) 0 unit SC ACHS [facility] PRN Reason: Protocol Last Admin: 03/13/18 09:18 Dose: 2 u Insulin Human Lispro (Humalog Kwikpen (Bkc)) 14 unit SC TIDAC [facility] Last Admin: 03/13/18 09:21 Dose: Not Given Magnesium Hydroxide (Milk Of Magnesia) 30 ml PO DAILY PRN PRN PRN Reason: Constipation Morphine Sulfate () 2 - 4 mg IV Q3H PRN PRN PRN Reason: Severe Pain (pain scale 6-10) Morphine Sulfate () 1 - 2 mg IV Q4H PRN PRN PRN Reason: Moderate Pain (pain scale 4-5) Last Admin: 03/12/18 10:06 Dose: 2 mg Morphine Sulfate () 2 - 4 mg IV Q3H PRN PRN PRN Reason: Severe Pain (pain scale 6-10) Ondansetron HCl (Zofran) 4 mg IV Q8H PRN PRN PRN Reason: NAUSEA Oxycodone HCl (Oxyir) 5 mg PO Q4H PRN PRN PRN Reason: Moderate Pain (pain scale 4-5) Last Admin: 03/13/18 06:23 Dose: 5 mg Polyethylene Glycol (Miralax) 17 gm PO DAILY [facility] Last Admin: 03/13/18 09:21 Dose: Not Given Promethazine HCl (Phenergan) 12.5 mg IV Q6H PRN PRN PRN Reason: NAUSEA/VOMITING Sodium Chloride () 5 - 30 ml IV UD PRN PRN Reason: SALINE FLUSH Last Admin: 03/12/18 23:20 Dose: 10 ml Medical Necessity - Tobacco Use Smoking Status: Never smoker Tobacco Use: Non-smoker Assessment/Plan All Active Problems Sepsis (Acute) Cellulitis (Acute) Patient is a 28-year-old lady with history of diabetes mellitus type 2 diagnosed at age 25, history of left foot metatarsal osteomyelitis admitted on 03/10/2018 with right foot infection with associated drainage and pain. Imaging studies obtained on admission demonstrated gas along the fifth metatarsal region patient underwent incision and drainage and debridement of all nonviable infected necrotic tissue. Admit subsequently admitted to regular nursing floor for further management 1. Sepsis secondary to infected bilateral foot polymicrobial(Staphylococcus aureus; Strep anginosus; Streptococcus agalactiae (B); GPC Poss Enterococcus sp Gram positive elvis) infection with abscess and gangrene. Patient underwent excisional wound debridement by podiatry. Consult subsequently placed infectious disease antibiotic management deferred 2. Diabetes mellitus type 2 uncontrolled due to noncompliance with hemoglobin A1c of 12.9. Patient is on long-acting insulin in addition to schedule pre-meal short-acting insulin did continue adjustment made as needed 3. Obesity with BMI of 33.5 lifestyle modification including weight loss advised 4. DVT prophylaxis with Lovenox subcu Microbiology 03/10/18 18:10 Wound - Left Foot Gram Stain - Final 03/10/18 18:10 Wound - Left Foot Wound Culture - Preliminary Staphylococcus aureus Strep anginosus Streptococcus agalactiae (B) GPC Poss Enterococcus sp Gram positive elvis 03/10/18 18:50 Blood Culture (Wb) - Anticubital Right Blood Culture - Preliminary 03/10/18 18:10 Blood Culture (Wb) - Anticubital Right Blood Culture - Preliminary Strep anginosus 03/10/18 22:18 Wound - Right Foot Gram Stain - Final 03/10/18 22:18 Wound - Right Foot Wound Culture - Preliminary Mixed Gram Positive Organisms 03/10/18 22:22 Abs - Right Foot Gram Stain - Final 03/10/18 22:22 Abs - Right Foot Wound Culture - Preliminary Mixed Gram Positive Organisms 03/10/18 18:10 Wound - Left Foot Gram Stain - Final 03/10/18 18:10 Wound - Left Foot Wound Culture - Preliminary Gram positive organism Active Medications Acetaminophen (Tylenol) 650 mg PO Q6H PRN PRN PRN Reason: Mild Pain (scale 0-3)/T>100.7 Last Admin: 03/12/18 17:00 Dose: 650 mg Al Hydroxide/Mg Hydroxide (Mylanta Ii) 30 ml PO Q6H PRN PRN PRN Reason: Gastric burning Albuterol/Ipratropium (Duoneb) 3 ml INHALATION Q4H PRN PRN PRN Reason: wheezing/cough Cholecalciferol (Vitamin D) 2,000 unit PO DAILY [facility] Last Admin: 03/13/18 09:18 Dose: 2,000 unit Docusate Sodium (Colace) 200 mg PO BID PRN PRN PRN Reason: Constipation Enoxaparin Sodium (Lovenox) 40 mg SC DAILY [facility] Last Admin: 03/13/18 09:22 Dose: 40 mg Famotidine (Pepcid) 20 mg PO BID [facility] Last Admin: 03/13/18 09:23 Dose: 20 mg Cefepime HCl 2 gm/ Sodium (Chloride) 100 mls @ 200 mls/hr IV Q8 [facility] Last Admin: 03/13/18 06:22 Dose: 200 mls/hr Linezolid (Zyvox 600mg) 600 mg in 300 mls @ 200 mls/hr IV Q12 [facility] Last Admin: 03/13/18 09:23 Dose: 200 mls/hr Sodium Chloride () 1,000 mls @ 75 mls/hr IV .[id number] [facility] Last Admin: 03/13/18 06:25 Dose: 75 mls/hr Insulin Glargine (Lantus (Bkc)) 65 units SC QHS [facility] Last Admin: 03/12/18 23:08 Dose: 65 units Insulin Human Lispro (Humalog Kwikpen (Bkc)) 0 unit SC ACHS [facility] PRN Reason: Protocol Last Admin: 03/13/18 09:18 Dose: 2 u Insulin Human Lispro (Humalog Kwikpen (Bkc)) 14 unit SC TIDAC [facility] Last Admin: 03/13/18 09:21 Dose: Not Given Magnesium Hydroxide (Milk Of Magnesia) 30 ml PO DAILY PRN PRN PRN Reason: Constipation Morphine Sulfate () 2 - 4 mg IV Q3H PRN PRN PRN Reason: Severe Pain (pain scale 6-10) Morphine Sulfate () 1 - 2 mg IV Q4H PRN PRN PRN Reason: Moderate Pain (pain scale 4-5) Last Admin: 03/12/18 10:06 Dose: 2 mg Morphine Sulfate () 2 - 4 mg IV Q3H PRN PRN PRN Reason: Severe Pain (pain scale 6-10) Ondansetron HCl (Zofran) 4 mg IV Q8H PRN PRN PRN Reason: NAUSEA Oxycodone HCl (Oxyir) 5 mg PO Q4H PRN PRN PRN Reason: Moderate Pain (pain scale 4-5) Last Admin: 03/13/18 06:23 Dose: 5 mg Polyethylene Glycol (Miralax) 17 gm PO DAILY [facility] Last Admin: 03/13/18 09:21 Dose: Not Given Promethazine HCl (Phenergan) 12.5 mg IV Q6H PRN PRN PRN Reason: NAUSEA/VOMITING Sodium Chloride () 5 - 30 ml IV UD PRN PRN Reason: SALINE FLUSH Last Admin: 03/12/18 23:20 Dose: 10 ml Code Visit Inpatient E&M: [id number] Subs Hosp L2
[2018-03-13 09:36] LABS: Bedside Glucose 160 mg/dL (70-110)
--- NOTE | 2018-03-13 09:40 | PN_ITS ---
Patient Problems: Active and Suspected Problems Sepsis (Acute) Cellulitis (Acute) Subjective: Patient is a 28-year-old lady with history of diabetes mellitus type 2 diagnosed at age 25, history of left foot metatarsal osteomyelitis admitted on with right foot infection with associated drainage and pain. Imaging studies obtained on admission demonstrated gas along the fifth metatarsal region patient underwent incision and drainage and debridement of all nonviable infected necrotic tissue. 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 SKIN: As described above Vitals/I&O's: Vital Signs Temp Pulse Resp BP Pulse Ox 98.7 F 103 H 20 H 128/77 H 100 03/13/18 08:51 03/13/18 08:59 03/13/18 08:59 03/13/18 08:51 03/13/18 08:51 Oxygen Delivery Method Room Air Weight: 106 kg Body Mass Index (BMI) 33.5 Finger Stick Blood Glucose 399 Intake and Output for Last 24 Hours 03/11/18 03/12/18 03/13/18 23:59 23:59 23:59 Intake Total 4258 / 4258 6805 / 6805 2126 / 2126 Output Total 3300 / 3300 4900 / 4900 800 / 800 Balance 958 / 958 1905 / 1905 1326 / 1326 Microbiology Past 72 Hours 03/10/18 22:18 Wound - Right Foot Gram Stain - Final 03/10/18 22:18 Wound - Right Foot Wound Culture - Preliminary Mixed Gram Positive Organisms 03/10/18 22:22 Abs - Right Foot Gram Stain - Final 03/10/18 22:22 Abs - Right Foot Wound Culture - Preliminary Mixed Gram Positive Organisms Laboratory Results 03/12/18 12:06: POC Glucose 273 H 03/12/18 17:03: POC Glucose 245 H 03/12/18 23:00: POC Glucose 166 H 03/13/18 06:40: WBC 6.6, RBC 3.37 L, Hgb 8.6 L, Hct 26.6 L, MCV 78.9 L, MCH 25.5 L, MCHC 32.3, RDW 12.9, RDW Differential 37.2, Plt Count 232, MPV 8.4, Immature Gran % (Auto) 0.200, Neut % (Auto) 58.0, Lymph % (Auto) 29.6, [place] % ( Auto) 9.0, Eos % (Auto) 2.6, Baso % (Auto) 0.6, Absolute Neuts (auto) 3.8, Absolute Lymphs (auto) 1.95, Total Counted Not Reportable 03/13/18 06:40: Sodium 138, Potassium 3.2 L, Chloride 105, Carbon Dioxide 22.0, Anion Gap 11, BUN 4 L, Creatinine 0.49 L, Estim Creat Clear Calc 184.84, Est GFR (MDRD) Af Amer 192, Est GFR (MDRD) Non-Af 158, BUN/Creatinine Ratio 8.1 L, Glucose 168 H, Calcium 8.3 L Current Medications Acetaminophen (Tylenol) 650 mg PO Q6H PRN PRN PRN Reason: Mild Pain (scale 0-3)/T>100.7 Last Admin: 03/12/18 17:00 Dose: 650 mg Al Hydroxide/Mg Hydroxide (Mylanta Ii) 30 ml PO Q6H PRN PRN PRN Reason: Gastric burning Albuterol/Ipratropium (Duoneb) 3 ml INHALATION Q4H PRN PRN PRN Reason: wheezing/cough Cholecalciferol (Vitamin D) 2,000 unit PO DAILY [facility] Last Admin: 03/13/18 09:18 Dose: 2,000 unit Docusate Sodium (Colace) 200 mg PO BID PRN PRN PRN Reason: Constipation Enoxaparin Sodium (Lovenox) 40 mg SC DAILY [facility] Last Admin: 03/13/18 09:22 Dose: 40 mg Famotidine (Pepcid) 20 mg PO BID [facility] Last Admin: 03/13/18 09:23 Dose: 20 mg Cefepime HCl 2 gm/ Sodium (Chloride) 100 mls @ 200 mls/hr IV Q8 [facility] Last Admin: 03/13/18 06:22 Dose: 200 mls/hr Linezolid (Zyvox 600mg) 600 mg in 300 mls @ 200 mls/hr IV Q12 [facility] Last Admin: 03/13/18 09:23 Dose: 200 mls/hr Sodium Chloride () 1,000 mls @ 75 mls/hr IV .[id number] [facility] Last Admin: 03/13/18 06:25 Dose: 75 mls/hr Insulin Glargine (Lantus (Bkc)) 65 units SC QHS [facility] Last Admin: 03/12/18 23:08 Dose: 65 units Insulin Human Lispro (Humalog Kwikpen (Bkc)) 0 unit SC ACHS [facility] PRN Reason: Protocol Last Admin: 03/13/18 09:18 Dose: 2 u Insulin Human Lispro (Humalog Kwikpen (Bkc)) 14 unit SC TIDAC [facility] Last Admin: 03/13/18 09:21 Dose: Not Given Magnesium Hydroxide (Milk Of Magnesia) 30 ml PO DAILY PRN PRN PRN Reason: Constipation Morphine Sulfate () 2 - 4 mg IV Q3H PRN PRN PRN Reason: Severe Pain (pain scale 6-10) Morphine Sulfate () 1 - 2 mg IV Q4H PRN PRN PRN Reason: Moderate Pain (pain scale 4-5) Last Admin: 03/12/18 10:06 Dose: 2 mg Morphine Sulfate () 2 - 4 mg IV Q3H PRN PRN PRN Reason: Severe Pain (pain scale 6-10) Ondansetron HCl (Zofran) 4 mg IV Q8H PRN PRN PRN Reason: NAUSEA Oxycodone HCl (Oxyir) 5 mg PO Q4H PRN PRN PRN Reason: Moderate Pain (pain scale 4-5) Last Admin: 03/13/18 06:23 Dose: 5 mg Polyethylene Glycol (Miralax) 17 gm PO DAILY [facility] Last Admin: 03/13/18 09:21 Dose: Not Given Promethazine HCl (Phenergan) 12.5 mg IV Q6H PRN PRN PRN Reason: NAUSEA/VOMITING Sodium Chloride () 5 - 30 ml IV UD PRN PRN Reason: SALINE FLUSH Last Admin: 03/12/18 23:20 Dose: 10 ml Medical Necessity - Tobacco Use Smoking Status: Never smoker Tobacco Use: Non-smoker Assessment/Plan All Active Problems Sepsis (Acute) Cellulitis (Acute) Patient is a 28-year-old lady with history of diabetes mellitus type 2 diagnosed at age 25, history of left foot metatarsal osteomyelitis admitted on with right foot infection with associated drainage and pain. Imaging studies obtained on admission demonstrated gas along the fifth metatarsal region patient underwent incision and drainage and debridement of all nonviable infected necrotic tissue. Admit subsequently admitted to regular nursing floor for further management 1. Sepsis secondary to infected bilateral foot polymicrobial(Staphylococcus aureus; Strep anginosus; Streptococcus agalactiae (B); GPC Poss Enterococcus sp Gram positive elvis) infection with abscess and gangrene. Patient underwent excisional wound debridement by podiatry. Consult subsequently placed infectious disease antibiotic management deferred 2. Diabetes mellitus type 2 uncontrolled due to noncompliance with hemoglobin A1c of 12.9. Patient is on long-acting insulin in addition to schedule pre- meal short-acting insulin did continue adjustment made as needed 3. Obesity with BMI of 33.5 lifestyle modification including weight loss advised 4. DVT prophylaxis with Lovenox subcu Microbiology 03/10/18 18:10 Wound - Left Foot Gram Stain - Final 03/10/18 18:10 Wound - Left Foot Wound Culture - Preliminary Staphylococcus aureus Strep anginosus Streptococcus agalactiae (B) GPC Poss Enterococcus sp Gram positive elvis 03/10/18 18:50 Blood Culture (Wb) - Anticubital Right Blood Culture - Preliminary 03/10/18 18:10 Blood Culture (Wb) - Anticubital Right Blood Culture - Preliminary Strep anginosus 03/10/18 22:18 Wound - Right Foot Gram Stain - Final 03/10/18 22:18 Wound - Right Foot Wound Culture - Preliminary Mixed Gram Positive Organisms 03/10/18 22:22 Abs - Right Foot Gram Stain - Final 03/10/18 22:22 Abs - Right Foot Wound Culture - Preliminary Mixed Gram Positive Organisms 03/10/18 18:10 Wound - Left Foot Gram Stain - Final 03/10/18 18:10 Wound - Left Foot Wound Culture - Preliminary Gram positive organism Active Medications Acetaminophen (Tylenol) 650 mg PO Q6H PRN PRN PRN Reason: Mild Pain (scale 0-3)/T>100.7 Last Admin: 03/12/18 17:00 Dose: 650 mg Al Hydroxide/Mg Hydroxide (Mylanta Ii) 30 ml PO Q6H PRN PRN PRN Reason: Gastric burning Albuterol/Ipratropium (Duoneb) 3 ml INHALATION Q4H PRN PRN PRN Reason: wheezing/cough Cholecalciferol (Vitamin D) 2,000 unit PO DAILY [facility] Last Admin: 03/13/18 09:18 Dose: 2,000 unit Docusate Sodium (Colace) 200 mg PO BID PRN PRN PRN Reason: Constipation Enoxaparin Sodium (Lovenox) 40 mg SC DAILY [facility] Last Admin: 03/13/18 09:22 Dose: 40 mg Famotidine (Pepcid) 20 mg PO BID [facility] Last Admin: 03/13/18 09:23 Dose: 20 mg Cefepime HCl 2 gm/ Sodium (Chloride) 100 mls @ 200 mls/hr IV Q8 [facility] Last Admin: 03/13/18 06:22 Dose: 200 mls/hr Linezolid (Zyvox 600mg) 600 mg in 300 mls @ 200 mls/hr IV Q12 [facility] Last Admin: 03/13/18 09:23 Dose: 200 mls/hr Sodium Chloride () 1,000 mls @ 75 mls/hr IV .[id number] [facility] Last Admin: 03/13/18 06:25 Dose: 75 mls/hr Insulin Glargine (Lantus (Bkc)) 65 units SC QHS [facility] Last Admin: 03/12/18 23:08 Dose: 65 units Insulin Human Lispro (Humalog Kwikpen (Bkc)) 0 unit SC ACHS [facility] PRN Reason: Protocol Last Admin: 03/13/18 09:18 Dose: 2 u Insulin Human Lispro (Humalog Kwikpen (Bkc)) 14 unit SC TIDAC [facility] Last Admin: 03/13/18 09:21 Dose: Not Given Magnesium Hydroxide (Milk Of Magnesia) 30 ml PO DAILY PRN PRN PRN Reason: Constipation Morphine Sulfate () 2 - 4 mg IV Q3H PRN PRN PRN Reason: Severe Pain (pain scale 6-10) Morphine Sulfate () 1 - 2 mg IV Q4H PRN PRN PRN Reason: Moderate Pain (pain scale 4-5) Last Admin: 03/12/18 10:06 Dose: 2 mg Morphine Sulfate () 2 - 4 mg IV Q3H PRN PRN PRN Reason: Severe Pain (pain scale 6-10) Ondansetron HCl (Zofran) 4 mg IV Q8H PRN PRN PRN Reason: NAUSEA Oxycodone HCl (Oxyir) 5 mg PO Q4H PRN PRN PRN Reason: Moderate Pain (pain scale 4-5) Last Admin: 03/13/18 06:23 Dose: 5 mg Polyethylene Glycol (Miralax) 17 gm PO DAILY [facility] Last Admin: 03/13/18 09:21 Dose: Not Given Promethazine HCl (Phenergan) 12.5 mg IV Q6H PRN PRN PRN Reason: NAUSEA/VOMITING Sodium Chloride () 5 - 30 ml IV UD PRN PRN Reason: SALINE FLUSH Last Admin: 03/12/18 23:20 Dose: 10 ml Code Visit Inpatient E&M: [id number] Subs Hosp L2
[2018-03-13] MEDS: 0.9% NaCl Peripheral Flush Adult/Peds IV (11:32)
[2018-03-13] MEDS: Ondansetron 4 MG/2 ML Vial IV ×2 (11:32→19:32)
[2018-03-13] MEDS: Morphine 2 MG/ML Syringe IV (11:35)
[2018-03-13 12:06] LABS: Bedside Glucose 173 mg/dL (70-110)
--- NOTE | 2018-03-13 12:13 | NURSING ---
wound photo: right dorsal foot
--- NOTE | 2018-03-13 12:14 | NURSING ---
wound photo: right plantar foot
--- NOTE | 2018-03-13 12:14 | NURSING ---
wound photo: left plantar foot
--- NOTE | 2018-03-13 12:14 | NURSING ---
wound photo: left dorsal foot
[2018-03-13] MEDS: Insulin Lispro 100 UNIT/ML INSULN.PEN 14 UNIT SC ×2 (12:35→17:41)
--- NOTE | 2018-03-13 12:45 | PCM.HP.ID ---
Problem List (1) Sepsis Status: Acute Qualifiers: Sepsis type: sepsis due to unspecified organism Qualified Code(s): A41.9 - Sepsis, unspecified organism Reason for Consult: gangrene Consulted by: Dr. Sidhu History of Present Illness: The patient is a 28 year old F with uncontrolled DM with peripheral neuropathy and past h/o L foot osteo and MRSA infection requiring picc placement a year ago with [facility]. Now with several month of bilateral foot intermittent pain, redness, swelling, drainage. Had course of bactrim and keflex in January with some improvement. Over past few days prior to presentation had worsening with severe stabbing pain, bloody drainage, redness traveling up LLE. No fever at home. Came to ED 03/10, cxs sent, started linezolid, cefepime. Taken to OR by Dr. Barkley for bilat I&D. Now feeling better. Full ROS performed and neg except as noted above. - Medical History Past Medical History (Chronic Problems): Chronic Problems Obesity (BMI 30.0-34.9) (Chronic) Diabetes mellitus, type II (Chronic) Allergies/Adverse Reactions: Allergies clindamycin Allergy (Verified 03/10/18 17:37) Hives vancomycin Allergy (Verified 03/10/18 20:10) Hives/makes my heart race Home Medications: Ambulatory Orders Medication Instructions Recorded Cephalexin [Cephalexin] 500 mg PO BID 03/10/18 Cholecalciferol (Vitamin D3) 2,000 unit PO DAILY 03/10/18 [Vitamin D3] Insulin Glargine [Lantus (BKC)] 62 units SC QHS 03/10/18 Insulin Lispro [Humalog KwikPen] 0 unit SQ TID 03/10/18 - Social History Tobacco Use: non-smoker Vital Signs Temp Pulse Resp BP Pulse Ox 98.2 F 95 16 146/95 H 99 03/13/18 12:15 03/13/18 12:15 03/13/18 12:15 03/13/18 12:15 03/13/18 12:15 Oxygen Delivery Method Room Air Weight: 106 kg Body Mass Index (BMI) 33.5 Finger Stick Blood Glucose 399 Microbiology Past 72 Hours 03/10/18 22:22 Gram Stain - Final Abs - Right Foot Wound Culture - Preliminary GPC Poss Enterococcus sp Alpha hemolytic organism Streptococcus agalactiae (B) Staphylococcus aureus Anaerobic Culture - Preliminary Checking for anaerobes, further studies to follow. 03/10/18 22:18 Gram Stain - Final Wound - Right Foot Wound Culture - Preliminary Mixed Gram Positive Organisms Anaerobic Culture - Preliminary Checking for anaerobes, further studies to follow. Laboratory Tests Past 24 Hrs 03/13/18 03/13/18 06:40 06:40 WBC 6.6 RBC 3.37 L Hgb 8.6 L Hct 26.6 L MCV 78.9 L MCH 25.5 L MCHC 32.3 RDW 12.9 RDW Differential 37.2 Plt Count 232 MPV 8.4 Immature Gran % (Auto) 0.200 Neut % (Auto) 58.0 Lymph % (Auto) 29.6 [place] % (Auto) 9.0 Eos % (Auto) 2.6 Baso % (Auto) 0.6 Absolute Neuts (auto) 3.8 Absolute Lymphs (auto) 1.95 Total Counted Not Reportable Sodium 138 Potassium 3.2 L Chloride 105 Carbon Dioxide 22.0 Anion Gap 11 BUN 4 L Creatinine 0.49 L Estim Creat Clear Calc 184.84 Est GFR (MDRD) Af Amer 192 Est GFR (MDRD) Non-Af 158 BUN/Creatinine Ratio 8.1 L Glucose 168 H Calcium 8.3 L - Other Studies Radiology: [] reviewed Other Studies: [] Route of nutrition/ use of supplements: [] Nutritional Intake: [] IV Site: [] [place] Catheter: [] - Physical Exam General: Alert, Oriented x3, Cooperative, No apparent distress HEENT: Atraumatic, PERRLA, EOMI Neck: Supple, No Nodes Lungs: Clear to auscultation, Normal air movement Cardiovascular: Regular rate, Regular Rhythm, No murmurs Abdomen: Soft, Non Tender, Non-Distended Extremities: Edema Skin: Incision - bilateral feet wrapped IV Site: Peripheral, without redness Musculoskeletal: No Tenderness to Palpation of Joints or Extremities Neurological: Cranial nerves II-XII grossly intact - Assessment/Plan Antibiotics: [] Assessment/Plan: [] Active and Suspected Problems Sepsis (Acute) Cellulitis (Acute) Uncontrolled DM with neuropathy p/w bilateral foot gangrene and abscess causing sepsis and strep anginosus bacteremia - improved s/p debridement 03/[address] Barkley. Bone appeared healthy in OR. Fever improved. Cxs with mssa, ? enterococcus, strep anginosus, GBS, and anaerobes. Cont linezolid, change cefepime to unasyn given lack of GNR seen and need for anaerobic coverage. ESR elevated. Will follow, thank you.
[2018-03-13 16:31] LABS: Bedside Glucose 131 mg/dL (70-110)
[2018-03-13] MEDS: Glucerna Shake 120 ML LIQUID PO (17:50)
[2018-03-13 21:21] LABS: Bedside Glucose 155 mg/dL (70-110)
[2018-03-14] VITALS (10 sets, daily range): BP systolic 128–149; BP diastolic 88–95; PULSE 91–110; RESP 16–18; TEMP 36.6–37.2; O2SAT 94–96
--- NOTE | 2018-03-14 07:57 | PN_ITS ---
Patient Problems: Active and Suspected Problems Sepsis (Acute) Cellulitis (Acute) Subjective: Patient seen had complication of wound VAC on 03/13/2018. Antibiotic regimen adjusted by infectious disease. Objective: GENERAL: cooperative HEENT: Clear conjunctiva, NECK; supple, normal thyroid, CHEST: Clear to auscultation bilaterally, HEART: Regular S1 S2, no audible murmurs ABDOMEN: soft, non-tender, normoactive bowel sounds, RECTAL: deferred EXTREMITIES: Right foot in surgical dressing DB2 DBA: Awake; no lateralizing signs. SKIN: As described above Vitals/I&O's: Vital Signs Temp Pulse Resp BP Pulse Ox 97.9 F 100 18 133/88 H 95 03/14/18 01:34 03/14/18 07:09 03/14/18 01:34 03/14/18 01:34 03/14/18 01:34 Oxygen Delivery Method Room Air Weight: 106 kg Body Mass Index (BMI) 33.5 Finger Stick Blood Glucose 399 Intake and Output for Last 24 Hours 03/12/18 03/13/18 03/14/18 23:59 23:59 23:59 Intake Total 6805 / 6805 5600 / 5600 781 / 781 Output Total 4900 / 4900 3750 / 3750 1200 / 1200 Balance 1905 / 1905 1850 / 1850 -419 / -419 Microbiology Past 72 Hours 03/10/18 22:22 Abs - Right Foot Gram Stain - Final 03/10/18 22:22 Abs - Right Foot Wound Culture - Preliminary Enterococcus faecalis Alpha hemolytic organism Streptococcus agalactiae (B) Staphylococcus aureus 03/10/18 22:22 Abs - Right Foot Anaerobic Culture - Preliminary Checking for anaerobes, further studies to follow. 03/10/18 18:10 Wound - Left Foot Gram Stain - Final 03/10/18 18:10 Wound - Left Foot Wound Culture - Final Meth. resistant Staph. aureus Strep anginosus Streptococcus agalactiae (B) Enterococcus faecalis Gram positive elvis 03/10/18 18:10 Wound - Left Foot Gram Stain - Final 03/10/18 18:10 Wound - Left Foot Wound Culture - Preliminary Coag Negative Staph Coag Negative Staph#2 Coag Negative Staph#3 Gram positive elvis 03/10/18 22:18 Wound - Right Foot Gram Stain - Final 03/10/18 22:18 Wound - Right Foot Wound Culture - Preliminary Mixed Gram Positive Organisms 03/10/18 22:18 Wound - Right Foot Anaerobic Culture - Preliminary Checking for anaerobes, further studies to follow. 03/10/18 18:50 Blood Culture (Wb) - Anticubital Right Blood Culture - Preliminary 03/10/18 18:10 Blood Culture (Wb) - Anticubital Right Blood Culture - Preliminary Strep anginosus Laboratory Results 03/13/18 09:09: POC Glucose 160 H 03/13/18 11:20: POC Glucose 173 H 03/13/18 16:16: POC Glucose 131 H 03/13/18 21:06: POC Glucose 155 H Current Medications Acetaminophen (Tylenol) 650 mg PO Q6H PRN PRN PRN Reason: Mild Pain (scale 0-3)/T>100.7 Last Admin: 03/12/18 17:00 Dose: 650 mg Al Hydroxide/Mg Hydroxide (Mylanta Ii) 30 ml PO Q6H PRN PRN PRN Reason: Gastric burning Albuterol/Ipratropium (Duoneb) 3 ml INHALATION Q4H PRN PRN PRN Reason: wheezing/cough Cholecalciferol (Vitamin D) 2,000 unit PO DAILY [facility] Last Admin: 03/13/18 09:18 Dose: 2,000 unit Docusate Sodium (Colace) 200 mg PO BID PRN PRN PRN Reason: Constipation Enoxaparin Sodium (Lovenox) 40 mg SC DAILY [facility] Last Admin: 03/13/18 09:22 Dose: 40 mg Famotidine (Pepcid) 20 mg PO BID [facility] Last Admin: 03/13/18 21:08 Dose: 20 mg Linezolid (Zyvox 600mg) 600 mg in 300 mls @ 200 mls/hr IV Q12 [facility] Last Admin: 03/13/18 21:12 Dose: 200 mls/hr Sodium Chloride () 1,000 mls @ 75 mls/hr IV .[id number] [facility] Last Admin: 03/13/18 21:10 Dose: 75 mls/hr Ampicillin Sodium/Sulbactam (Sodium 3 gm/ Sodium Chloride) 112 mls @ 150 mls/hr IV Q6 [facility] Last Admin: 03/14/18 06:45 Dose: 150 mls/hr Insulin Glargine (Lantus (Bkc)) 65 units SC QHS [facility] Last Admin: 03/13/18 21:10 Dose: 65 units Insulin Human Lispro (Humalog Kwikpen (Bk)) 0 unit SC ACHS [facility]; Protocol Last Admin: 03/14/18 07:18 Dose: Not Given Insulin Human Lispro (Humalog Kwikpen (Bk)) 14 unit SC TIDAC [facility] Last Admin: 03/13/18 17:41 Dose: 10 units Magnesium Hydroxide (Milk Of Magnesia) 30 ml PO DAILY PRN PRN PRN Reason: Constipation Morphine Sulfate () 2 - 4 mg IV Q3H PRN PRN PRN Reason: Severe Pain (pain scale 6-10) Morphine Sulfate () 1 - 2 mg IV Q4H PRN PRN PRN Reason: Moderate Pain (pain scale 4-5) Last Admin: 03/13/18 11:35 Dose: 2 mg Morphine Sulfate () 2 - 4 mg IV Q3H PRN PRN PRN Reason: Severe Pain (pain scale 6-10) Nutritional Formula (Lactose Free) (Glucerna Shake) 120 ml PO 4X/DAY [facility] Last Admin: 03/13/18 21:11 Dose: Not Given Ondansetron HCl (Zofran) 4 mg IV Q8H PRN PRN PRN Reason: NAUSEA Last Admin: 03/13/18 19:32 Dose: 4 mg Oxycodone HCl (Oxyir) 5 mg PO Q4H PRN PRN PRN Reason: Moderate Pain (pain scale 4-5) Last Admin: 03/13/18 21:30 Dose: 5 mg Polyethylene Glycol (Miralax) 17 gm PO DAILY [facility] Last Admin: 03/13/18 09:21 Dose: Not Given Promethazine HCl (Phenergan) 12.5 mg IV Q6H PRN PRN PRN Reason: NAUSEA/VOMITING Sodium Chloride () 5 - 30 ml IV UD PRN PRN Reason: SALINE FLUSH Last Admin: 03/13/18 11:32 Dose: 10 ml Medical Necessity - Tobacco Use Smoking Status: Never smoker Tobacco Use: Non-smoker Assessment/Plan All Active Problems Sepsis (Acute) Cellulitis (Acute) Patient is a 28-year-old lady with history of diabetes mellitus type 2 diagnosed at age 25, history of left foot metatarsal osteomyelitis admitted on 03/10/2018 with right foot infection with associated drainage and pain. Imaging studies obtained on admission demonstrated gas along the fifth metatarsal region patient underwent incision and drainage and debridement of all nonviable infected necrotic tissue. Admit subsequently admitted to regular nursing floor for further management 1. Sepsis secondary to infected bilateral foot polymicrobial(Staphylococcus aureus; Strep anginosus; Streptococcus agalactiae (B); GPC Poss Enterococcus sp Gram positive elvis) infection with abscess and gangrene. Patient underwent excisional wound debridement by podiatry. Consult subsequently placed infectious disease antibiotic management deferred. Patient seen had complication of wound VAC on 03/13/2018. Antibiotic regimen adjusted by infectious disease. 2. Diabetes mellitus type 2 uncontrolled due to noncompliance with hemoglobin A1c of 12.9. Patient is on long-acting insulin in addition to schedule pre-meal short-acting insulin did continue adjustment made as needed 3. Obesity with BMI of 33.5 lifestyle modification including weight loss advised 4. DVT prophylaxis with Lovenox subcu Code Visit Inpatient E&M: 42507 Subs Hosp L2
[2018-03-14 08:19] LABS: Hematocrit 25.7 % (37-47); Hemoglobin 8.3 g/dl (12.0-15.0); Mean Corp Hgb Conc 32.3 g/gl (32-36); Mean Corpuscular Hgb 25.5 pg (27.0-32.0); Mean Corpuscular Volume 78.8 fL (81-99); Mean Platelet Vol. 8.1 fl (6.2-12.0); Platelet Count 227 K/mm3 (150-450); RBC Distribution Width CV 12.9 % (11.6-14.6); RBC Distribution Width SD 37.3 fl (35.1-43.9); Red Blood Count 3.26 M/mm3 (4.2-5.4); White Blood Count 5.5 K/mm3 (4.4-11.0)
[2018-03-14 08:20] LABS: Scan Indicated on CBC? Y/N NO
[2018-03-14] MEDS: Glucerna Shake 120 ML LIQUID PO ×2 (08:29→17:13)
[2018-03-14] MEDS: Enoxaparin 40 MG/0.4 ML Syringe SC (08:29)
[2018-03-14] MEDS: oxyCODONE 5 MG Tablet PO (08:29)
[2018-03-14] MEDS: Famotidine 20 MG Tablet PO ×2 (08:30→22:37)
[2018-03-14] MEDS: Polyethylene Glycol 3350 17 GM PACKET PO (08:30)
[2018-03-14] MEDS: Insulin Lispro 100 UNIT/ML INSULN.PEN SC (08:32)
[2018-03-14 08:41] LABS: Anion Gap 10 (5-15); BUN 3 mg/dL (7-18); BUN/Creat Ratio 5.5 RATIO (10-20); Calcium,Total 8.3 mg/dL (8.5-10.1); Chloride 106 mmol/L (98-107); Creatinine, Serum 0.54 mg/dL (0.55-1.02); EST Glomerular Filtration Rate 141 mL/min (>60); Est Glom Filt Rate - Afr Amer 171 mL/min (>60); Estimated Creatinine Clearance 167.73 ml/min; Glucose 155 mg/dL (74-106); Potassium 3.3 mmol/L (3.5-5.1); Sodium Level 143 mmol/L (136-145)
[2018-03-14] MEDS: Linezolid 600 MG 600 MG/300 ML BAG 200 MG IV (10:05)
[2018-03-14] MEDS: 0.9% Normal Saline 1,000 ML 15 ML IV (10:06)
--- NOTE | 2018-03-14 10:49 | PCM.PN.ID ---
Patient Problems: Active and Suspected Problems Sepsis (Acute) Cellulitis (Acute) Subjective: Feeling better, feet sore, no fever, no n/v/d. - Physical Exam General: Alert, Cooperative, No apparent distress Lungs: Clear to auscultation, Normal air movement Cardiovascular: Regular rate, Regular Rhythm Abdomen: Soft, Non Tender, Non-Distended Skin: Ulcer/ Wound - bilat feet wrapped Vital Signs Temp Pulse Resp BP Pulse Ox 98.3 F 101 H 16 128/90 H 96 03/14/18 08:00 03/14/18 08:00 03/14/18 08:00 03/14/18 08:00 03/14/18 08:00 Oxygen Delivery Method Room Air Weight: 106 kg Body Mass Index (BMI) 33.5 Finger Stick Blood Glucose 399 Intake and Output for Last 24 Hours 03/12/18 03/13/18 03/14/18 23:59 23:59 23:59 Intake Total 6805 / 6805 5600 / 5600 781 / 781 Output Total 4900 / 4900 3750 / 3750 1200 / 1200 Balance 1905 / 1905 1850 / 1850 -419 / -419 Microbiology Past 72 Hours 03/10/18 18:10 Gram Stain - Final Wound - Left Foot Wound Culture - Final Coag Negative Staph Coag Negative Staph#2 Coag Negative Staph#3 Gram positive elvis Gram positive elvis#2 03/10/18 22:18 Gram Stain - Final Wound - Right Foot Wound Culture - Preliminary GPC Poss Enterococcus sp Gram positive elvis Gram positive organism Anaerobic Culture - Preliminary Checking for anaerobes, further studies to follow. 03/10/18 22:22 Gram Stain - Final Abs - Right Foot Wound Culture - Preliminary Enterococcus faecalis Alpha hemolytic organism Streptococcus agalactiae (B) Staphylococcus aureus Anaerobic Culture - Preliminary Checking for anaerobes, further studies to follow. 03/10/18 18:10 Gram Stain - Final Wound - Left Foot Wound Culture - Final Meth. resistant Staph. aureus Strep anginosus Streptococcus agalactiae (B) Enterococcus faecalis Gram positive elvis 03/10/18 18:50 Blood Culture - Preliminary Blood Culture (Wb) - Anticubital Right 03/10/18 18:10 Blood Culture - Preliminary Blood Culture (Wb) - Anticubital Right Strep anginosus Laboratory Tests Past 24 Hrs 03/14/18 03/14/18 08:05 08:05 WBC 5.5 RBC 3.26 L Hgb 8.3 L Hct 25.7 L MCV 78.8 L MCH 25.5 L MCHC 32.3 RDW 12.9 RDW Differential 37.3 Plt Count 227 MPV 8.1 Sodium 143 Potassium 3.3 L Chloride 106 Carbon Dioxide 27.0 Anion Gap 10 BUN 3 L Creatinine 0.54 L Estim Creat Clear Calc 167.73 Est GFR (MDRD) Af Amer 171 Est GFR (MDRD) Non-Af 141 BUN/Creatinine Ratio 5.5 L Glucose 155 H Calcium 8.3 L POC Glucose 03/13/18 03/13/18 03/13/18 21:06 16:16 11:20 POC Glucose 155 H 131 H 173 H Medical Necessity - Tobacco Use Smoking Status: Never smoker Tobacco Use: Non-smoker Route of nutrition/ use of supplements: [] Nutritional Intake: [] IV Site: [] [place] Catheter: [] - Assessment/Plan Antibiotics: [] Assessment/Plan: [] Active and Suspected Problems Sepsis (Acute) Cellulitis (Acute) Uncontrolled DM with neuropathy p/w bilateral foot gangrene and abscess causing sepsis and strep anginosus bacteremia - improved s/p debridement 03/[address] Barkley. Bone appeared healthy in OR. Fever improved. Cxs with mssa, enterococcus, strep anginosus, GBS, and anaerobes. Stop linezolid. Continue unasyn. May be a candidate for po augmentin at discharge. Will follow
[2018-03-14] MEDS: Insulin Lispro 100 UNIT/ML INSULN.PEN 14 UNIT SC (12:20)
[2018-03-14 12:45] LABS: Bedside Glucose 183 mg/dL (70-110)
[2018-03-14] MEDS: Ondansetron 4 MG/2 ML Vial IV (14:00)
--- NOTE | 2018-03-14 14:28 | NURSING ---
Pt states she has not eaten all day. states she has been nauseated. just finished with dressing change. visitor in and brought patient a large cup of [place] ice cream. asked patient if she plans on eating the ice cream. patient states not all of it. Pt's Hgb A1C on admission was 12.9. numerous people have talked to patient about nutrition and the importance of blood sugar control for wound healing as well as for patient's health.
--- NOTE | 2018-03-14 16:38 | PCM.PN.HOSP ---
Patient Problems: Active and Suspected Problems Sepsis (Acute) Cellulitis (Acute) Vitals/I&O's: Vital Signs Temp Pulse Resp BP Pulse Ox 99.0 F 103 H 16 141/95 H 96 03/14/18 14:53 03/14/18 14:56 03/14/18 14:53 03/14/18 14:53 03/14/18 14:53 Oxygen Delivery Method Room Air Weight: 106 kg Body Mass Index (BMI) 33.5 Finger Stick Blood Glucose 399 Intake and Output for Last 24 Hours 03/12/18 03/13/18 03/14/18 23:59 23:59 23:59 Intake Total 6805 / 6805 5600 / 5600 1547 / 1547 Output Total 4900 / 4900 3750 / 3750 1500 / 1500 Balance 1905 / 1905 1850 / 1850 47 / 47 Microbiology Past 72 Hours 03/10/18 22:23 Wound Abcess - Left Foot Gram Stain - Final 03/10/18 22:23 Wound Abcess - Left Foot Wound Culture - Preliminary Enterococcus faecalis Alpha hemolytic organism Streptococcus agalactiae (B) Staphylococcus aureus 03/10/18 18:10 Wound - Left Foot Gram Stain - Final 03/10/18 18:10 Wound - Left Foot Wound Culture - Final Coag Negative Staph Coag Negative Staph#2 Coag Negative Staph#3 Gram positive elvis Gram positive elvis#2 03/10/18 22:18 Wound - Right Foot Gram Stain - Final 03/10/18 22:18 Wound - Right Foot Wound Culture - Preliminary GPC Poss Enterococcus sp Gram positive elvis Gram positive organism 03/10/18 22:18 Wound - Right Foot Anaerobic Culture - Preliminary Checking for anaerobes, further studies to follow. 03/10/18 18:10 Wound - Left Foot Gram Stain - Final 03/10/18 18:10 Wound - Left Foot Wound Culture - Final Meth. resistant Staph. aureus Strep anginosus Streptococcus agalactiae (B) Enterococcus faecalis Gram positive elvis 03/10/18 18:50 Blood Culture (Wb) - Anticubital Right Blood Culture - Preliminary 03/10/18 18:10 Blood Culture (Wb) - Anticubital Right Blood Culture - Preliminary Strep anginosus Laboratory Results 03/13/18 21:06: POC Glucose 155 H 03/14/18 08:05: WBC 5.5, RBC 3.26 L, Hgb 8.3 L, Hct 25.7 L, MCV 78.8 L, MCH 25.5 L, MCHC 32.3, RDW 12.9, RDW Differential 37.3, Plt Count 227, MPV 8.1 03/14/18 08:05: Sodium 143, Potassium 3.3 L, Chloride 106, Carbon Dioxide 27.0, Anion Gap 10, BUN 3 L, Creatinine 0.54 L, Estim Creat Clear Calc 167.73, Est GFR (MDRD) Af Amer 171, Est GFR (MDRD) Non-Af 141, BUN/Creatinine Ratio 5.5 L, Glucose 155 H, Calcium 8.3 L 03/14/18 12:16: POC Glucose 183 H Current Medications Acetaminophen (Tylenol) 650 mg PO Q6H PRN PRN PRN Reason: Mild Pain (scale 0-3)/T>100.7 Last Admin: 03/12/18 17:00 Dose: 650 mg Al Hydroxide/Mg Hydroxide (Mylanta Ii) 30 ml PO Q6H PRN PRN PRN Reason: Gastric burning Albuterol/Ipratropium (Duoneb) 3 ml INHALATION Q4H PRN PRN PRN Reason: wheezing/cough Cholecalciferol (Vitamin D) 2,000 unit PO DAILY [facility] Last Admin: 03/14/18 08:30 Dose: 2,000 unit Docusate Sodium (Colace) 200 mg PO BID PRN PRN PRN Reason: Constipation Enoxaparin Sodium (Lovenox) 40 mg SC DAILY [facility] Last Admin: 03/14/18 08:29 Dose: 40 mg Famotidine (Pepcid) 20 mg PO BID [facility] Last Admin: 03/14/18 08:30 Dose: 20 mg Ampicillin Sodium/Sulbactam (Sodium 3 gm/ Sodium Chloride) 112 mls @ 150 mls/hr IV Q6 [facility] Last Admin: 03/14/18 12:20 Dose: 150 mls/hr Sodium Chloride () 1,000 mls @ 15 mls/hr IV .Q48H [facility] Last Admin: 03/14/18 10:06 Dose: 15 mls/hr Insulin Glargine (Lantus (Bkc)) 65 units SC QHS [facility] Last Admin: 03/13/18 21:10 Dose: 65 units Insulin Human Lispro (Humalog Kwikpen (Bkc)) 0 unit SC ACHS [facility]; Protocol Last Admin: 03/14/18 08:32 Dose: 2 u Insulin Human Lispro (Humalog Kwikpen (Bkc)) 14 unit SC TIDAC [facility] Last Admin: 03/14/18 12:20 Dose: 14 units Magnesium Hydroxide (Milk Of Magnesia) 30 ml PO DAILY PRN PRN PRN Reason: Constipation Morphine Sulfate () 2 - 4 mg IV Q3H PRN PRN PRN Reason: Severe Pain (pain scale 6-10) Morphine Sulfate () 1 - 2 mg IV Q4H PRN PRN PRN Reason: Moderate Pain (pain scale 4-5) Last Admin: 03/13/18 11:35 Dose: 2 mg Morphine Sulfate () 2 - 4 mg IV Q3H PRN PRN PRN Reason: Severe Pain (pain scale 6-10) Nutritional Formula (Lactose Free) (Glucerna Shake) 120 ml PO 4X/DAY [facility] Last Admin: 03/14/18 14:01 Dose: Not Given Ondansetron HCl (Zofran) 4 mg IV Q8H PRN PRN PRN Reason: NAUSEA Last Admin: 03/14/18 14:00 Dose: 4 mg Oxycodone HCl (Oxyir) 5 mg PO Q4H PRN PRN PRN Reason: Moderate Pain (pain scale 4-5) Last Admin: 03/14/18 08:29 Dose: 5 mg Polyethylene Glycol (Miralax) 17 gm PO DAILY [facility] Last Admin: 03/14/18 08:30 Dose: 17 gm Potassium Bicarb/Potassium Chloride (Potassium Chl 25 Meq Eff (For Liquid)) [facility] Last Admin: 03/14/18 11:20 Dose: 25 meq Promethazine HCl (Phenergan) 12.5 mg IV Q6H PRN PRN PRN Reason: NAUSEA/VOMITING Sodium Chloride () 5 - 30 ml IV UD PRN PRN Reason: SALINE FLUSH Last Admin: 03/13/18 11:32 Dose: 10 ml Medical Necessity - Tobacco Use Smoking Status: Never smoker Tobacco Use: Non-smoker Assessment/Plan All Active Problems Sepsis (Acute) Cellulitis (Acute)
--- NOTE | 2018-03-14 16:44 | PN_ITS ---
Patient Problems: Active and Suspected Problems Sepsis (Acute) Cellulitis (Acute) Vitals/I&O's: Vital Signs Temp Pulse Resp BP Pulse Ox 99.0 F 103 H 16 141/95 H 96 03/14/18 14:53 03/14/18 14:56 03/14/18 14:53 03/14/18 14:53 03/14/18 14:53 Oxygen Delivery Method Room Air Weight: 106 kg Body Mass Index (BMI) 33.5 Finger Stick Blood Glucose 399 Intake and Output for Last 24 Hours 03/12/18 03/13/18 03/14/18 23:59 23:59 23:59 Intake Total 6805 / 6805 5600 / 5600 1547 / 1547 Output Total 4900 / 4900 3750 / 3750 1500 / 1500 Balance 1905 / 1905 1850 / 1850 47 / 47 Microbiology Past 72 Hours 03/10/18 22:23 Wound Abcess - Left Foot Gram Stain - Final 03/10/18 22:23 Wound Abcess - Left Foot Wound Culture - Preliminary Enterococcus faecalis Alpha hemolytic organism Streptococcus agalactiae (B) Staphylococcus aureus 03/10/18 18:10 Wound - Left Foot Gram Stain - Final 03/10/18 18:10 Wound - Left Foot Wound Culture - Final Coag Negative Staph Coag Negative Staph#2 Coag Negative Staph#3 Gram positive elvis Gram positive elvis#2 03/10/18 22:18 Wound - Right Foot Gram Stain - Final 03/10/18 22:18 Wound - Right Foot Wound Culture - Preliminary GPC Poss Enterococcus sp Gram positive elvis Gram positive organism 03/10/18 22:18 Wound - Right Foot Anaerobic Culture - Preliminary Checking for anaerobes, further studies to follow. 03/10/18 18:10 Wound - Left Foot Gram Stain - Final 03/10/18 18:10 Wound - Left Foot Wound Culture - Final Meth. resistant Staph. aureus Strep anginosus Streptococcus agalactiae (B) Enterococcus faecalis Gram positive elvis 03/10/18 18:50 Blood Culture (Wb) - Anticubital Right Blood Culture - Preliminary 03/10/18 18:10 Blood Culture (Wb) - Anticubital Right Blood Culture - Prelim inary Strep anginosus Laboratory Results 03/13/18 21:06: POC Glucose 155 H 03/14/18 08:05: WBC 5.5, RBC 3.26 L, Hgb 8.3 L, Hct 25.7 L, MCV 78.8 L, MCH 25.5 L, MCHC 32.3, RDW 12.9, RDW Differential 37.3, Plt Count 227, MPV 8.1 03/14/18 08:05: Sodium 143, Potassium 3.3 L, Chloride 106, Carbon Dioxide 27.0, Anion Gap 10, BUN 3 L, Creatinine 0.54 L, Estim Creat Clear Calc 167.73, Est GFR (MDRD) Af Amer 171, Est GFR (MDRD) Non-Af 141, BUN/Creatinine Ratio 5.5 L, Glucose 155 H, Calcium 8.3 L 03/14/18 12:16: POC Glucose 183 H Current Medications Acetaminophen (Tylenol) 650 mg PO Q6H PRN PRN PRN Reason: Mild Pain (scale 0-3)/T>100.7 Last Admin: 03/12/18 17:00 Dose: 650 mg Al Hydroxide/Mg Hydroxide (Mylanta Ii) 30 ml PO Q6H PRN PRN PRN Reason: Gastric burning Albuterol/Ipratropium (Duoneb) 3 ml INHALATION Q4H PRN PRN PRN Reason: wheezing/cough Cholecalciferol (Vitamin D) 2,000 unit PO DAILY [facility] Last Admin: 03/14/18 08:30 Dose: 2,000 unit Docusate Sodium (Colace) 200 mg PO BID PRN PRN PRN Reason: Constipation Enoxaparin Sodium (Lovenox) 40 mg SC DAILY [facility] Last Admin: 03/14/18 08:29 Dose: 40 mg Famotidine (Pepcid) 20 mg PO BID [facility] Last Admin: 03/14/18 08:30 Dose: 20 mg Ampicillin Sodium/Sulbactam (Sodium 3 gm/ Sodium Chloride) 112 mls @ 150 mls/hr IV Q6 [facility] Last Admin: 03/14/18 12:20 Dose: 150 mls/hr Sodium Chloride () 1,000 mls @ 15 mls/hr IV .Q48H [facility] Last Admin: 03/14/18 10:06 Dose: 15 mls/hr Insulin Glargine (Lantus (Bkc)) 65 units SC QHS [facility] Last Admin: 03/13/18 21:10 Dose: 65 units Insulin Human Lispro (Humalog Kwikpen (Bkc)) 0 unit SC ACHS [facility]; Protocol Last Admin: 03/14/18 08:32 Dose: 2 u Insulin Human Lispro (Humalog Kwikpen (Bkc)) 14 unit SC TIDAC [facility] Last Admin: 03/14/18 12:20 Dose: 14 units Magnesium Hydroxide (Milk Of Magnesia) 30 ml PO DAILY PRN PRN PRN Reason: Constipation Morphine Sulfate () 2 - 4 mg IV Q3H PRN PRN PRN Reason: Severe Pain (pain scale 6-10) Morphine Sulfate () 1 - 2 mg IV Q4H PRN PRN PRN Reason: Moderate Pain (pain scale 4-5) Last Admin: 03/13/18 11:35 Dose: 2 mg Morphine Sulfate () 2 - 4 mg IV Q3H PRN PRN PRN Reason: Severe Pain (pain scale 6-10) Nutritional Formula (Lactose Free) (Glucerna Shake) 120 ml PO 4X/DAY [facility] Last Admin: 03/14/18 14:01 Dose: Not Given Ondansetron HCl (Zofran) 4 mg IV Q8H PRN PRN PRN Reason: NAUSEA Last Admin: 03/14/18 14:00 Dose: 4 mg Oxycodone HCl (Oxyir) 5 mg PO Q4H PRN PRN PRN Reason: Moderate Pain (pain scale 4-5) Last Admin: 03/14/18 08:29 Dose: 5 mg Polyethylene Glycol (Miralax) 17 gm PO DAILY [facility] Last Admin: 03/14/18 08:30 Dose: 17 gm Potassium Bicarb/Potassium Chloride (Potassium Chl 25 Meq Eff (For Liquid)) [facility] Last Admin: 03/14/18 11:20 Dose: 25 meq Promethazine HCl (Phenergan) 12.5 mg IV Q6H PRN PRN PRN Reason: NAUSEA/VOMITING Sodium Chloride () 5 - 30 ml IV UD PRN PRN Reason: SALINE FLUSH Last Admin: 03/13/18 11:32 Dose: 10 ml Medical Necessity - Tobacco Use Smoking Status: Never smoker Tobacco Use: Non-smoker Assessment/Plan All Active Problems Sepsis (Acute) Cellulitis (Acute)
[2018-03-14 17:10] LABS: Bedside Glucose 119 mg/dL (70-110)
[2018-03-14 21:31] LABS: Bedside Glucose 152 mg/dL (70-110)
[2018-03-14 22:50] LABS: Bedside Glucose 107 mg/dL (70-110)
[2018-03-15 03:15] LABS: Bedside Glucose 106 mg/dL (70-110)
[2018-03-15 03:18] VITALS: BP 137/90; PULSE 101; RESP 16; TEMP 36.9; O2SAT 93
[2018-03-15 04:24] VITALS: PULSE 101
[2018-03-15 06:20] LABS: Hematocrit 25.8 % (37-47); Hemoglobin 8.3 g/dl (12.0-15.0); Mean Corp Hgb Conc 32.2 g/gl (32-36); Mean Corpuscular Hgb 25.9 pg (27.0-32.0); Mean Corpuscular Volume 80.6 fL (81-99); Mean Platelet Vol. 8.6 fl (6.2-12.0); Platelet Count 283 K/mm3 (150-450); RBC Distribution Width CV 12.4 % (11.6-14.6); RBC Distribution Width SD 35.4 fl (35.1-43.9); White Blood Count 5.8 K/mm3 (4.4-11.0)
[2018-03-15 06:22] LABS: Scan Indicated on CBC? Y/N NO
[2018-03-15 06:37] LABS: Anion Gap 8 (5-15); BUN 3 mg/dL (7-18); BUN/Creat Ratio 6.8 RATIO (10-20); Calcium,Total 8.3 mg/dL (8.5-10.1); Chloride 106 mmol/L (98-107); Creatinine, Serum 0.44 mg/dL (0.55-1.02); EST Glomerular Filtration Rate 182 mL/min (>60); Est Glom Filt Rate - Afr Amer 220 mL/min (>60); Estimated Creatinine Clearance 205.85 ml/min; Glucose 117 mg/dL (74-106); Magnesium 1.7 mg/dL (1.6-2.6); Potassium 3.2 mmol/L (3.5-5.1); Sodium Level 142 mmol/L (136-145)
--- NOTE | 2018-03-15 07:34 | PCM.PROGNOTE ---
Patient Problems: Active and Suspected Problems Sepsis (Acute) Cellulitis (Acute) Subjective: This 28-year-old female seen bedside status post widespread soft tissue debridement secondary to infection and sepsis. She was afebrile overnight. She denies fever, chill, nausea, vomiting, chest pain, shortness of breath, calf pain. She denies right foot pain and has decreased left foot pain. She is eager to return home. - Physical Exam General: Alert, Oriented x3, Cooperative HEENT: Atraumatic Extremities: No cyanosis, Capillary Refill Less than 3 Seconds - All digits bilateral foot, No Calf Tenderness - Negative Chiquita and Rockwell sign bilateral, Edema - Decreased lower extremities, - - Palpable DP pulses bilateral Skin: Ulcer/ Wound - Bilateral foot dressings are clean dry and intact without strikethrough or odor or proximal streaking. The wound VAC is intact without evidence of leaking to the left foot. No interdigital maceration bilateral Musculoskeletal: No Tenderness to Palpation of Joints or Extremities, Muscle Wasting, - - Active range of motion all toes bilateral. Compartments remain soft to palpate bilateral foot ankle and leg Neurological: - - Lack of normal sensation light touch bilateral lower extremities Psych/Mental Status: Normal Affect, Appropriate Vital Signs Temp Pulse Resp BP Pulse Ox 98.5 F 101 H 16 137/90 H 93 03/15/18 03:18 03/15/18 04:24 03/15/18 03:18 03/15/18 03:18 03/15/18 03:18 Oxygen Delivery Method Room Air Weight: 106 kg Body Mass Index (BMI) 33.5 Finger Stick Blood Glucose 399 Intake and Output for Last 24 Hours 03/13/18 03/14/18 03/15/18 23:59 23:59 23:59 Intake Total 5600 / 5600 1864 / 1864 985 / 985 Output Total 3750 / 3750 1750 / 1750 400 / 400 Balance 1850 / 1850 114 / 114 585 / 585 Microbiology Past 72 Hours 03/12/18 17:50 Blood Culture - Preliminary Blood Culture (Wb) - Anticubital Left No growth in 48 hours. 03/12/18 17:50 Blood Culture - Preliminary Blood Culture (Wb) - Right Wrist No growth in 48 hours. 03/10/18 22:23 Gram Stain - Final Wound Abcess - Left Foot Wound Culture - Preliminary Enterococcus faecalis Alpha hemolytic organism Streptococcus agalactiae (B) Staphylococcus aureus 03/10/18 18:10 Gram Stain - Final Wound - Left Foot Wound Culture - Final Coag Negative Staph Coag Negative Staph#2 Coag Negative Staph#3 Gram positive elvis Gram positive elvis#2 03/10/18 22:18 Gram Stain - Final Wound - Right Foot Wound Culture - Preliminary GPC Poss Enterococcus sp Gram positive elvis Gram positive organism Anaerobic Culture - Preliminary Checking for anaerobes, further studies to follow. 03/10/18 18:10 Gram Stain - Final Wound - Left Foot Wound Culture - Final Meth. resistant Staph. aureus Strep anginosus Streptococcus agalactiae (B) Enterococcus faecalis Gram positive elvis 03/10/18 18:50 Blood Culture - Preliminary Blood Culture (Wb) - Anticubital Right 03/10/18 18:10 Blood Culture - Preliminary Blood Culture (Wb) - Anticubital Right Strep anginosus Laboratory Tests Past 24 Hrs 03/14/18 03/14/18 03/15/18 08:05 08:05 05:10 WBC 5.5 5.8 RBC 3.26 L 3.20 L Hgb 8.3 L 8.3 L Hct 25.7 L 25.8 L MCV 78.8 L 80.6 L MCH 25.5 L 25.9 L MCHC 32.3 32.2 RDW 12.9 12.4 RDW Differential 37.3 35.4 Plt Count 227 283 MPV 8.1 8.6 Sodium 143 Potassium 3.3 L Chloride 106 Carbon Dioxide 27.0 Anion Gap 10 BUN 3 L Creatinine 0.54 L Estim Creat Clear Calc 167.73 Est GFR (MDRD) Af Amer 171 Est GFR (MDRD) Non-Af 141 BUN/Creatinine Ratio 5.5 L Glucose 155 H Calcium 8.3 L Magnesium 03/15/18 05:10 WBC RBC Hgb Hct MCV MCH MCHC RDW RDW Differential Plt Count MPV Sodium 142 Potassium 3.2 L Chloride 106 Carbon Dioxide 28.0 Anion Gap 8 BUN 3 L Creatinine 0.44 L Estim Creat Clear Calc 205.85 Est GFR (MDRD) Af Amer 220 Est GFR (MDRD) Non-Af 182 BUN/Creatinine Ratio 6.8 L Glucose 117 H Calcium 8.3 L Magnesium 1.7 POC Glucose 03/15/18 03/14/18 03/14/18 03:07 22:36 17:05 POC Glucose 106 107 119 H 03/14/18 03/14/18 12:16 06:47 POC Glucose 183 H 152 H Medical Necessity - Tobacco Use Smoking Status: Never smoker Tobacco Use: Non-smoker Assessment/Plan All Active Problems Sepsis (Acute) Cellulitis (Acute) Necrotic ulceration left sub 1st metatarsal head down to muscle/tendon Abscess, cellulitis, severe infection w/ gas gangrene left foot now s/p debridement and I & D Nonviable Ulceration sub 4th metatarsal right foot down to muscle/tendon w/ cellulitis Ulceration plantar right hallux with cellulitis Abscess, cellulitis, severe infection w/ gas gangrene right foot now s/p debridement and I & D Ulceration to subcutaneous tissue medial right ankle Diabetes (uncontrolled) with peripheral neuropathy Sepsis Reviewed diagnostic data. Reviewed findings with patient. Afebrile overnight. WBC 5.8. Clinically her feet have continued to improve. Infectious disease Consultation which is greatly appreciated. Her antibiotics have been changed to Unasyn. Her multi organism growth is noted from her intraoperative cultures. Oral Augmentin will be considered at the time of discharge. To continue with local wound care: left foot wound vac and right foot valorie. No weightbearing left foot, ok to put weight on right heel for transitions. Keep feet elevated. Due to chronic ulcerations a noninvasive arterial lower extremity study was been ordered. The patient relates this has been completed on Tuesday and I am not able to obtain access in the computer; I will call the vascular lab to obtain the reports. Have reviewed with patient the importance of proper blood sugar control to optimize healing and to optimize foot/ankle health. Medical management per medicine team is appreciated. Podiatry will continue to follow while in house. It is okay to discharge from a podiatric surgery standpoint. Social work is working with her in regards to discharge home with home health. To follow up at the wound healing center at time of discharge. Addie Simpson DPM, FACF[facility] [phone]
[2018-03-15 08:35] VITALS: PULSE 107
[2018-03-15 08:41] VITALS: BP 125/82; PULSE 103; RESP 18; TEMP 37.4; O2SAT 94
[2018-03-15 09:00] LABS: Bedside Glucose 133 mg/dL (70-110)
--- NOTE | 2018-03-15 09:31 | NURSING ---
Called and talked with Jennifer at [facility] and confirmed patient's appointment tomorrow. states they will be changing the VAC dressing tomorrow and then will get patient set up for VAC changed 3 times a week the following week at the [facility] since was not able to get home health d/t insurance. will switch patient over to home VAC prior to patient being discharged home today.
--- NOTE | 2018-03-15 09:45 | NURSING ---
wound photo: right plantar foot
--- NOTE | 2018-03-15 09:46 | NURSING ---
wound photo: right dorsal foot
--- NOTE | 2018-03-15 09:46 | NURSING ---
wound photo: left dorsal foot with VAC dressing in place
--- NOTE | 2018-03-15 09:47 | NURSING ---
wound photo: left plantar foot with VAC dressing in place
--- NOTE | 2018-03-15 10:06 | PCM.DC ---
- Discharge Diagnoses Current Active Problems: Current Active and Chronic Problems Type 2 diabetes mellitus with diabetic polyneuropathy (Acute) Cellulitis of right foot (Acute) Cellulitis of left foot (Acute) Chronic ulcer of left foot with necrosis of muscle (Acute) Ulcer of right foot with necrosis of muscle (Acute) Obesity (BMI 30.0-34.9) (Chronic) Sepsis (Acute) Cellulitis (Acute) Diabetes mellitus, type II (Chronic) You will use the following diet at home:: Calorie/Carbohydrate Controlled (specify 1200, 1400, etc) - 1800 Your food should be the consistency of: Regular Discharge Activity: Return to Normal Activity Weight Bearing Status: Weight bearing as tolerated Allergies/Adverse Reactions: Allergies clindamycin Allergy (Verified 03/10/18 17:37) Hives vancomycin Allergy (Verified 03/10/18 20:10) Hives/makes my heart race Medications to take at Discharge Cholecalciferol (Vitamin D3) [Vitamin D3] 2,000 unit PO DAILY 03/10/18 Insulin Glargine [Lantus SoloStar Pen] 62 units SC QHS 03/10/18 Amoxicillin/Potassium Clav [Amox Tr-K Clv 875-125 mg Tab] 1 each PO BID #20 tablet 03/15/18 Insulin Lispro [Humalog KwikPen] 14 unit SQ TID #0 03/15/18 Lactobacill 46/B.animal/Inulin [Probiotic-10 10 Bill Cell Cap] 1 each PO DAILY #30 capsule 03/15/18 Linezolid [Zyvox] 600 mg PO Q12H #20 tablet 03/15/18 The following prescriptions were given: Amoxicillin/Potassium Clav [Amox Tr-K Clv 875-125 mg Tab] 1 each PO BID #20 tablet Lactobacill 46/B.animal/Inulin [Probiotic-10 10 Bill Cell Cap] 1 each PO DAILY #30 capsule Linezolid [Zyvox] 600 mg PO Q12H #20 tablet Primary Care Physician: [facility] Doctor,Out of [Primary Care Provider] - Test Results: Test results from this visit will be discussed in further detail at your follow-up appointment, if applicable. Please Follow Up With: [facility] When: Please Follow Up With: Addie Simpson DPM When: IN 5-7 DAYS Proposed Discharge Date: 03/15/18
--- NOTE | 2018-03-15 10:10 | DCINST_ITS ---
- Discharge Diagnoses Current Active Problems: Current Active and Chronic Problems Type 2 diabetes mellitus with diabetic polyneuropathy (Acute) Cellulitis of right foot (Acute) Cellulitis of left foot (Acute) Chronic ulcer of left foot with necrosis of muscle (Acute) Ulcer of right foot with necrosis of muscle (Acute) Obesity (BMI 30.0-34.9) (Chronic) Sepsis (Acute) Cellulitis (Acute) Diabetes mellitus, type II (Chronic) You will use the following diet at home:: Calorie/Carbohydrate Controlled (specify 1200, 1400, etc) - 1800 Your food should be the consistency of: Regular Discharge Activity: Return to Normal Activity Weight Bearing Status: Weight bearing as tolerated Allergies/Adverse Reactions: Allergies clindamycin Allergy (Verified 03/10/18 17:37) Hives vancomycin Allergy (Verified 03/10/18 20:10) Hives/makes my heart race Medications to take at Discharge Cholecalciferol (Vitamin D3) [Vitamin D3] 2,000 unit PO DAILY 03/10/18 Insulin Glargine [Lantus SoloStar Pen] 62 units SC QHS 03/10/18 Amoxicillin/Potassium Clav [Amox Tr-K Clv 875-125 mg Tab] 1 each PO BID #20 tablet 03/15/18 Insulin Lispro [Humalog KwikPen] 14 unit SQ TID #0 03/15/18 Lactobacill 46/B.animal/Inulin [Probiotic-10 10 Bill Cell Cap] 1 each PO DAILY #30 capsule 03/15/18 Linezolid [Zyvox] 600 mg PO Q12H #20 tablet 03/15/18 The following prescriptions were given: Amoxicillin/Potassium Clav [Amox Tr-K Clv 875-125 mg Tab] 1 each PO BID #20 tablet Lactobacill 46/B.animal/Inulin [Probiotic-10 10 Bill Cell Cap] 1 each PO DAILY #30 capsule Linezolid [Zyvox] 600 mg PO Q12H #20 tablet Primary Care Physician: [facility] Doctor,Out of [Primary Care Provider] - Test Results: Test results from this visit will be discussed in further detail at your follow- up appointment, if applicable. Please Follow Up With: [facility] When: Please Follow Up With: Addie Simpson DPM When: IN 5-7 DAYS Proposed Discharge Date: 03/15/18
--- NOTE | 2018-03-15 10:10 | PCM.DC.SUM ---
Discharge Date and Diagnosis - Problem List Patient Problems: Active and Suspected Problems Type 2 diabetes mellitus with diabetic polyneuropathy (Acute) Cellulitis of right foot (Acute) Cellulitis of left foot (Acute) Chronic ulcer of left foot with necrosis of muscle (Acute) Ulcer of right foot with necrosis of muscle (Acute) Sepsis (Acute) Cellulitis (Acute) Date of Admission: 03/10/18 Date of Discharge: 03/15/18 - Primary Discharge Diagnosis Active and Suspected Problems Type 2 diabetes mellitus with diabetic polyneuropathy (Acute) Cellulitis of right foot (Acute) Cellulitis of left foot (Acute) Chronic ulcer of left foot with necrosis of muscle (Acute) Ulcer of right foot with necrosis of muscle (Acute) Sepsis (Acute) Cellulitis (Acute) - Secondary Discharge Diagnosis Chronic Problems Obesity (BMI 30.0-34.9) (Chronic) Diabetes mellitus, type II (Chronic) Hospital Course and Treatment Imaging Results: Clinical Impression(s) from Imaging Studies Foot X-Ray 03/10/18 18:14 IMPRESSION: Postsurgical changes of the fourth digit. Probable abscess with gas-forming organisms in the plantar surface of the foot adjacent to the distal aspect of the first metatarsal. Electronically Signed: Rashid Ho MD at 19:45 EDT , Service support , Foot X-Ray 03/10/18 18:14 IMPRESSION: Marked soft tissue swelling on the plantar surface of the foot with soft tissue gas most compatible with infection with a gas-forming organism. Electronically Signed: Rashid Ho MD at 19:46 EDT , Service support , Chest X-Ray 03/10/18 19:10 IMPRESSION: No significant abnormality identified. Electronically Signed: Rashid Ho MD at 19:42 EDT , Service support , Foot X-Ray 03/10/18 22:48 IMPRESSION: Postoperative changes of the medial foot with residual soft tissue emphysema. Electronically Signed: Sandee Torres MD at 3:29 EDT , Service support , Ankle X-Ray 03/10/18 23:05 IMPRESSION: Normal x-ray examination of the ankle. Electronically Signed: Rodolfo Gutierrez MD at 2:36 EDT , Service support , Foot X-Ray 03/10/18 23:07 IMPRESSION: Postoperative changes of the soft tissues plantar to the metatarsophalangeal joints consistent with history of recent surgical debridement. Electronically Signed: Sandee Torres MD at 3:11 EDT , Service support , Ankle X-Ray 03/10/18 23:20 IMPRESSION: There are no acute osseous abnormalities in the left ankle. There is moderate medial soft tissue swelling. Electronically Signed: Marcela Junior MD at 2:07 EDT Tel Direct: [phone], Service support , Microbiology 03/10/18 22:18 Wound - Right Foot Gram Stain - Final 03/10/18 22:18 Wound - Right Foot Wound Culture - Preliminary Enterococcus faecalis Corynebacterium amycolatum/xer Staphylococcus aureus 03/10/18 22:18 Wound - Right Foot Anaerobic Culture - Preliminary Anaerobic cocci Gram negative elvis 03/10/18 22:23 Wound Abcess - Left Foot Gram Stain - Final 03/10/18 22:23 Wound Abcess - Left Foot Wound Culture - Preliminary Enterococcus faecalis Alpha hemolytic organism Streptococcus agalactiae (B) Staphylococcus aureus 03/10/18 22:23 Wound Abcess - Left Foot Anaerobic Culture - Preliminary Anaerobic cocci Gram negative elvis 03/12/18 17:50 Blood Culture (Wb) - Anticubital Left Blood Culture - Preliminary No growth in 48 hours. 03/12/18 17:50 Blood Culture (Wb) - Right Wrist Blood Culture - Preliminary No growth in 48 hours. 03/10/18 18:10 Wound - Left Foot Gram Stain - Final 03/10/18 18:10 Wound - Left Foot Wound Culture - Final Coag Negative Staph Coag Negative Staph#2 Coag Negative Staph#3 Gram positive elvis Gram positive elvis#2 03/10/18 18:10 Wound - Left Foot Gram Stain - Final 03/10/18 18:10 Wound - Left Foot Wound Culture - Final Meth. resistant Staph. aureus Strep anginosus Streptococcus agalactiae (B) Enterococcus faecalis Gram positive elvis 03/10/18 18:50 Blood Culture (Wb) - Anticubital Right Blood Culture - Preliminary 03/10/18 18:10 Blood Culture (Wb) - Anticubital Right Blood Culture - Preliminary Strep anginosus Consultations 03/10/18 23:19 Consult: Onc/Wound/hide inspector Routine Comment: Summary of Care Provided: Patient is a 28-year-old lady with history of diabetes mellitus type 2 diagnosed at age 25, history of left foot metatarsal osteomyelitis admitted on 03/10/2018 with right foot infection with associated drainage and pain. Imaging studies obtained on admission demonstrated gas along the fifth metatarsal region patient underwent incision and drainage and debridement of all nonviable infected necrotic tissue. Admit subsequently admitted to regular nursing floor for further management 1. Sepsis secondary to infected bilateral foot polymicrobial(Staphylococcus aureus; Strep anginosus; Streptococcus agalactiae (B); GPC Poss Enterococcus sp Gram positive elvis) infection with abscess and gangrene. Patient underwent excisional wound debridement by podiatry. Consult subsequently placed infectious disease antibiotic management deferred. Patient seen had complication of wound VAC on 03/13/2018. Antibiotic regimen adjusted by infectious disease. Patient was discharged home on Augmentin and Zyvox after discussion with Dr. Smith with infectious disease 2. Diabetes mellitus type 2 uncontrolled due to noncompliance with hemoglobin A1c of 12.9. Patient is on long-acting insulin in addition to schedule pre-meal short-acting insulin did continue adjustment made as needed 3. Obesity with BMI of 33.5 lifestyle modification including weight loss advised 4. 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 SKIN: As described above Discharge Diet: 1800 Calorie Control Diet Discharge Activity: Return to Normal Activity Weight Bearing Status: Weight bearing as tolerated Home Medications: Medications to take at Discharge Cholecalciferol (Vitamin D3) [Vitamin D3] 2,000 unit PO DAILY 03/10/18 Insulin Glargine [Lantus SoloStar Pen] 62 units SC QHS 03/10/18 Amoxicillin/Potassium Clav [Amox Tr-K Clv 875-125 mg Tab] 1 each PO BID #20 tablet 03/15/18 Insulin Lispro [Humalog KwikPen] 14 unit SQ TID #0 03/15/18 Lactobacill 46/B.animal/Inulin [Probiotic-10 10 Bill Cell Cap] 1 each PO DAILY #30 capsule 03/15/18 Linezolid [Zyvox] 600 mg PO Q12H #20 tablet 03/15/18 Following Prescrptions Were Given to Patient: Amoxicillin/Potassium Clav [Amox Tr-K Clv 875-125 mg Tab] 1 each PO BID #20 tablet Lactobacill 46/B.animal/Inulin [Probiotic-10 10 Bill Cell Cap] 1 each PO DAILY #30 capsule Linezolid [Zyvox] 600 mg PO Q12H #20 tablet Primary Care Physician: Eri Polk,Out of [Primary Care Provider] - Please Follow Up With: [facility] When: Please Follow Up With: Addie Simpson DPM When: IN 5-7 DAYS Disposition: Home Minutes spent on discharge:: 35 Patient Condition:: Stable Medical Necessity - Tobacco Use Smoking Status: Never smoker Tobacco Use: Non-smoker Meaningful Use Info Meaningful Use Diagnoses (Choose all that apply): None applicable Code Visit Inpatient E&M: 61437 Disch Hosp
--- NOTE | 2018-03-15 10:13 | DS.PCM_ITS ---
Discharge Date and Diagnosis - Problem List Patient Problems: Active and Suspected Problems Type 2 diabetes mellitus with diabetic polyneuropathy (Acute) Cellulitis of right foot (Acute) Cellulitis of left foot (Acute) Chronic ulcer of left foot with necrosis of muscle (Acute) Ulcer of right foot with necrosis of muscle (Acute) Sepsis (Acute) Cellulitis (Acute) Date of Admission: 03/10/18 Date of Discharge: 03/15/18 - Primary Discharge Diagnosis Active and Suspected Problems Type 2 diabetes mellitus with diabetic polyneuropathy (Acute) Cellulitis of right foot (Acute) Cellulitis of left foot (Acute) Chronic ulcer of left foot with necrosis of muscle (Acute) Ulcer of right foot with necrosis of muscle (Acute) Sepsis (Acute) Cellulitis (Acute) - Secondary Discharge Diagnosis Chronic Problems Obesity (BMI 30.0-34.9) (Chronic) Diabetes mellitus, type II (Chronic) Hospital Course and Treatment Imaging Results: Clinical Impression(s) from Imaging Studies Foot X-Ray 03/10/18 18:14 IMPRESSION: Postsurgical changes of the fourth digit. Probable abscess with gas-forming organisms in the plantar surface of the foot adjacent to the distal aspect of the first metatarsal. Electronically Signed: Rashid Ho MD at 19:45 EDT , Service support , Foot X-Ray 03/10/18 18:14 IMPRESSION: Marked soft tissue swelling on the plantar surface of the foot with soft tissue gas most compatible with infection with a gas-forming organism. Electronically Signed: Rashid Ho MD at 19:46 EDT , Service support , Chest X-Ray 03/10/18 19:10 IMPRESSION: No significant abnormality identified. Electronically Signed: Rashid Ho MD at 19:42 EDT , Service support , Foot X-Ray 03/10/18 22:48 IMPRESSION: Postoperative changes of the medial foot with residual soft tissue emphysema. Electronically Signed: Sandee Torres MD at 3:29 EDT , Service support , Ankle X-Ray 03/10/18 23:05 IMPRESSION: Normal x-ray examination of the ankle. Electronically Signed: Rodolfo Gutierrez MD at 2:36 EDT , Service support , Foot X-Ray 03/10/18 23:07 IMPRESSION: Postoperative changes of the soft tissues plantar to the metatarsophalangeal joints consistent with history of recent surgical debridement. Electronically Signed: Sandee Torres MD at 3:11 EDT , Service support , Ankle X-Ray 03/10/18 23:20 IMPRESSION: There are no acute osseous abnormalities in the left ankle. There is moderate medial soft tissue swelling. Electronically Signed: Marcela Junior MD at 2:07 EDT Tel Direct: [phone], Service support , Microbiology 03/10/18 22:18 Wound - Right Foot Gram Stain - Final 03/10/18 22:18 Wound - Right Foot Wound Culture - Preliminary Enterococcus faecalis Corynebacterium amycolatum/xer Staphylococcus aureus 03/10/18 22:18 Wound - Right Foot Anaerobic Culture - Preliminary Anaerobic cocci Gram negative elvis 03/10/18 22:23 Wound Abcess - Left Foot Gram Stain - Final 03/10/18 22:23 Wound Abcess - Left Foot Wound Culture - Preliminary Enterococcus faecalis Alpha hemolytic organism Streptococcus agalactiae (B) Staphylococcus aureus 03/10/18 22:23 Wound Abcess - Left Foot Anaerobic Culture - Preliminary Anaerobic cocci Gram negative elvis 03/12/18 17:50 Blood Culture (Wb) - Anticubital Left Blood Culture - Preliminary No growth in 48 hours. 03/12/18 17:50 Blood Culture (Wb) - Right Wrist Blood Culture - Preliminary No growth in 48 hours. 03/10/18 18:10 Wound - Left Foot Gram Stain - Final 03/10/18 18:10 Wound - Left Foot Wound Culture - Final Coag Negative Staph Coag Negative Staph#2 Coag Negative Staph#3 Gram positive elvis Gram positive elvis#2 03/10/18 18:10 Wound - Left Foot Gram Stain - Final 03/10/18 18:10 Wound - Left Foot Wound Culture - Final Meth. resistant Staph. aureus Strep anginosus Streptococcus agalactiae (B) Enterococcus faecalis Gram positive elvis 03/10/18 18:50 Blood Culture (Wb) - Anticubital Right Blood Culture - Preliminary 03/10/18 18:10 Blood Culture (Wb) - Anticubital Right Blood Culture - Preliminary Strep anginosus Consultations 03/10/18 23:19 Consult: Onc/Wound/transit clerk Routine Comment: Summary of Care Provided: Patient is a 28-year-old lady with history of diabetes mellitus type 2 diagnosed at age 25, history of left foot metatarsal osteomyelitis admitted on 03/10/2018 with right foot infection with associated drainage and pain. Imaging studies obtained on admission demonstrated gas along the fifth metatarsal region patient underwent incision and drainage and debridement of all nonviable infected necrotic tissue. Admit subsequently admitted to regular nursing floor for further management 1. Sepsis secondary to infected bilateral foot polymicrobial(Staphylococcus aureus; Strep anginosus; Streptococcus agalactiae (B); GPC Poss Enterococcus sp Gram positive elvis) infection with abscess and gangrene. Patient underwent excisional wound debridement by podiatry. Consult subsequently placed infectious disease antibiotic management deferred. Patient seen had complication of wound VAC on 03/13/2018. Antibiotic regimen adjusted by infectious disease. Patient was discharged home on Augmentin and Zyvox after d iscussion with Dr. Smith with infectious disease 2. Diabetes mellitus type 2 uncontrolled due to noncompliance with hemoglobin A1c of 12.9. Patient is on long-acting insulin in addition to schedule pre-meal short-acting insulin did continue adjustment made as needed 3. Obesity with BMI of 33.5 lifestyle modification including weight loss advised 4. 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 SKIN: As described above Discharge Diet: 1800 Calorie Control Diet Discharge Activity: Return to Normal Activity Weight Bearing Status: Weight bearing as tolerated Home Medications: Medications to take at Discharge Cholecalciferol (Vitamin D3) [Vitamin D3] 2,000 unit PO DAILY 03/10/18 Insulin Glargine [Lantus SoloStar Pen] 62 units SC QHS 03/10/18 Amoxicillin/Potassium Clav [Amox Tr-K Clv 875-125 mg Tab] 1 each PO BID #20 tablet 03/15/18 Insulin Lispro [Humalog KwikPen] 14 unit SQ TID #0 03/15/18 Lactobacill 46/B.animal/Inulin [Probiotic-10 10 Bill Cell Cap] 1 each PO DAILY #30 capsule 03/15/18 Linezolid [Zyvox] 600 mg PO Q12H #20 tablet 03/15/18 Following Prescrptions Were Given to Patient: Amoxicillin/Potassium Clav [Amox Tr-K Clv 875-125 mg Tab] 1 each PO BID #20 tablet Lactobacill 46/B.animal/Inulin [Probiotic-10 10 Bill Cell Cap] 1 each PO DAILY #30 capsule Linezolid [Zyvox] 600 mg PO Q12H #20 tablet Primary Care Physician: Eri Polk,Out of [Primary Care Provider] - Please Follow Up With: [facility] When: Please Follow Up With: Addie Simpson DPM When: IN 5-7 DAYS Disposition: Home Minutes spent on discharge:: 35 Patient Condition:: Stable Medical Necessity - Tobacco Use Smoking Status: Never smoker Tobacco Use: Non-smoker Meaningful Use Info Meaningful Use Diagnoses (Choose all that apply): None applicable Code Visit Inpatient E&M: 84982 Disch Hosp
--- NOTE | 2018-03-15 10:30 | CASEMGMT ---
Patient to discharge home today. Patient setup for [facility] on 03/16 at 3:00pm. Patient will need wheelchair at discharge. Script obtained and referral sent to [facility] [place] and arranged for delivery to hospital prior to discharge. CM will continue to monitor patient and plan for a safe discharge.
--- NOTE | 2018-03-15 11:17 | NURSING ---
pharmacy called and notified that 1000 zyvox and nystatin are not on unit and cannot be obtained from [facility]. Notified that communication had been sent before calling.
--- NOTE | 2018-03-15 11:19 | PCM.PN.ID ---
Patient Problems: Active and Suspected Problems Type 2 diabetes mellitus with diabetic polyneuropathy (Acute) Cellulitis of right foot (Acute) Cellulitis of left foot (Acute) Chronic ulcer of left foot with necrosis of muscle (Acute) Ulcer of right foot with necrosis of muscle (Acute) Sepsis (Acute) Cellulitis (Acute) Subjective: Feeling ok, but c/o nausea. No fever. - Physical Exam General: Alert, Cooperative, No apparent distress Lungs: Clear to auscultation, Normal air movement Cardiovascular: Regular rate, Regular Rhythm Abdomen: Soft, Non Tender, Non-Distended Skin: Incision - bilat feet wrapped Vital Signs Temp Pulse Resp BP Pulse Ox 99.4 F H 103 H 18 125/82 H 94 03/15/18 08:41 03/15/18 08:41 03/15/18 08:41 03/15/18 08:41 03/15/18 08:41 Oxygen Delivery Method Room Air Weight: 106 kg Body Mass Index (BMI) 33.5 Finger Stick Blood Glucose 399 Intake and Output for Last 24 Hours 03/13/18 03/14/18 03/15/18 23:59 23:59 23:59 Intake Total 5600 / 5600 1864 / 1864 985 / 985 Output Total 3750 / 3750 1750 / 1750 400 / 400 Balance 1850 / 1850 114 / 114 585 / 585 Microbiology Past 72 Hours 03/10/18 22:18 Gram Stain - Final Wound - Right Foot Wound Culture - Preliminary Enterococcus faecalis Corynebacterium amycolatum/xer Staphylococcus aureus Anaerobic Culture - Preliminary Anaerobic cocci Gram negative elvis 03/10/18 22:23 Gram Stain - Final Wound Abcess - Left Foot Wound Culture - Preliminary Enterococcus faecalis Alpha hemolytic organism Streptococcus agalactiae (B) Staphylococcus aureus Anaerobic Culture - Preliminary Anaerobic cocci Gram negative elvis 03/12/18 17:50 Blood Culture - Preliminary Blood Culture (Wb) - Anticubital Left No growth in 48 hours. 03/12/18 17:50 Blood Culture - Preliminary Blood Culture (Wb) - Right Wrist No growth in 48 hours. 03/10/18 18:10 Gram Stain - Final Wound - Left Foot Wound Culture - Final Coag Negative Staph Coag Negative Staph#2 Coag Negative Staph#3 Gram positive elvis Gram positive elvis#2 03/10/18 18:10 Gram Stain - Final Wound - Left Foot Wound Culture - Final Meth. resistant Staph. aureus Strep anginosus Streptococcus agalactiae (B) Enterococcus faecalis Gram positive elvis 03/10/18 18:50 Blood Culture - Preliminary Blood Culture (Wb) - Anticubital Right 03/10/18 18:10 Blood Culture - Preliminary Blood Culture (Wb) - Anticubital Right Strep anginosus Laboratory Tests Past 24 Hrs 03/15/18 03/15/18 05:10 05:10 WBC 5.8 RBC 3.20 L Hgb 8.3 L Hct 25.8 L MCV 80.6 L MCH 25.9 L MCHC 32.2 RDW 12.4 RDW Differential 35.4 Plt Count 283 MPV 8.6 Sodium 142 Potassium 3.2 L Chloride 106 Carbon Dioxide 28.0 Anion Gap 8 BUN 3 L Creatinine 0.44 L Estim Creat Clear Calc 205.85 Est GFR (MDRD) Af Amer 220 Est GFR (MDRD) Non-Af 182 BUN/Creatinine Ratio 6.8 L Glucose 117 H Calcium 8.3 L Magnesium 1.7 POC Glucose 03/15/18 03/15/18 03/14/18 08:54 03:07 22:36 POC Glucose 133 H 106 107 03/14/18 03/14/18 03/14/18 17:05 12:16 06:47 POC Glucose 119 H 183 H 152 H Medical Necessity - Tobacco Use Smoking Status: Never smoker Tobacco Use: Non-smoker Route of nutrition/ use of supplements: [] Nutritional Intake: [] IV Site: [] [place] Catheter: [] - Assessment/Plan Antibiotics: [] Assessment/Plan: [] Active and Suspected Problems Sepsis (Acute) Cellulitis (Acute) Uncontrolled DM with neuropathy p/w bilateral foot gangrene and abscess causing sepsis and strep anginosus bacteremia - improved s/p debridement 03/[address] Barkley. Bone appeared healthy in OR. Fever improved. Cxs with mssa, enterococcus, strep anginosus, GBS, and anaerobes. Ok for d/c home on 10 days of po linezolid and augmentin. Wound care followup. Will follow
[2018-03-15] MEDS: Ondansetron 4 MG/2 ML Vial IV (11:27)
[2018-03-15] MEDS: 0.9% NaCl Peripheral Flush Adult/Peds IV (11:27)
[2018-03-15] MEDS: Linezolid 600 MG Tablet PO (11:30)
[2018-03-15 11:41] LABS: Bedside Glucose 124 mg/dL (70-110)
[2018-03-15 14:35] VITALS: BP 147/91; PULSE 104; RESP 18; TEMP 37.2; O2SAT 93
== END 2018-03-15 16:05 | disposition home or self-care (01) | DRG 853 ==
LOC: ED 19:16 → SDC 22:32 → ED 23:08 → MS3 03-11 14:29
PROVIDERS: Internal Medicine; Podiatrist; Admitting Provider Family Medicine; Emergency Provider Emergency Medicine; Visit Provider Internal Medicine
PROC: 0JBQ0ZZ Excision of Right Foot Subcutaneous Tissue and Fascia, Open Approach (ICD-10-PCS; principal; 2018-03-10 20:30)
DX: A41.9 Sepsis, unspecified organism (principal); A48.0 Gas gangrene; L03.115 Cellulitis of right lower limb; L03.116 Cellulitis of left lower limb; E11.42 Type 2 diabetes mellitus with diabetic polyneuropathy; Z79.4 Long term (current) use of insulin; E11.65 Type 2 diabetes mellitus with hyperglycemia; E66.9 Obesity, unspecified; Z68.33 Body mass index [BMI] 33.0-33.9, adult; Z83.3 Family history of diabetes mellitus; B95.61 Methicillin susceptible Staphylococcus aureus infection as the cause of diseases classified elsewhere; B95.1 Streptococcus, group B, as the cause of diseases classified elsewhere; B95.4 Other streptococcus as the cause of diseases classified elsewhere; B95.2 Enterococcus as the cause of diseases classified elsewhere; E11.621 Type 2 diabetes mellitus with foot ulcer; L97.519 Non-pressure chronic ulcer of other part of right foot with unspecified severity; L97.513 Non-pressure chronic ulcer of other part of right foot with necrosis of muscle; L97.523 Non-pressure chronic ulcer of other part of left foot with necrosis of muscle; Z91.19 Patient's noncompliance with other medical treatment and regimen
CPT/HCPCS: 36415; 71045; 73610; 73630; 80048; 80053; 82009; 82962; 83036; 83605; 83735; 84703; 85025; 85027; 85610; 85652; 85730; 86140; 87040; 87070; 87075; 87076; 87077; 87186; 87205; 87640; 93005; 93923; 97110; 97162; 97530; 97802; 99285; J2020; J7030; A4216; J0295; J2405; J3490

== ENCOUNTER 2018-03-16 15:17 | Outpatient (RCR) | payer OTHER, SELFPAY ==
[2018-03-16 16:39] VITALS: BP 150/89; PULSE 103; RESP 18; TEMP 36.9; BMI 31.6
--- NOTE | 2018-03-17 13:50 | HP.PCM_ITS ---
(1) Ulcer of right foot with necrosis of muscle Status: Acute Current Visit: Yes Code(s): L97.513 - Non-pressure chronic ulcer of other part of right foot with necrosis of muscle (2) Chronic ulcer of left foot with necrosis of muscle Status: Acute Current Visit: No Code(s): L97.523 - Non-pressure chronic ulcer of other part of left foot with necrosis of muscle (3) Cellulitis of left foot Status: Acute Current Visit: Yes Code(s): L03.116 - Cellulitis of left lower limb (4) Cellulitis of right foot Status: Acute Current Visit: Yes Code(s): L03.115 - Cellulitis of right lower limb (5) Type 2 diabetes mellitus with diabetic polyneuropathy Status: Acute Current Visit: Yes Code(s): E11.42 - Type 2 diabetes mellitus with diabetic polyneuropathy (6) Diabetes mellitus, type II Status: Chronic Current Visit: Yes Qualifiers: Code(s): E11.9 - Type 2 diabetes mellitus without complications (7) Obesity (BMI 30.0-34.9) Status: Chronic Current Visit: Yes Code(s): E66.9 - Obesity, unspecified History of Present Illness Date of Service: 03/16/18 Chief Complaint: Nonhealing ulcers b/l feet s/p surgical debridement by Dr. Barkley Podiatry at [facility] on 03/10/18 History of Wound: This is a 28-year-old white female who presents to the wound healing center today as a courtesy visit for Dr. Simpson she was instructed to follow-up here regarding her multiple complicated diabetic foot ulcers of the bilateral feet status post recent surgical excision. She has a past medical history significant for uncontrolled type 2 diabetes mellitus (most recent A1C 12.9), obesity, history of MRSA infection prior, and history of left fourth metatarsal osteomyelitis. She presented to the [facility] emergency department on 03/10/18 with complaints of worsening ulcers on bilateral feet with purulent exudate. She noted worsening drainage and pain. Imaging studies were initially performed and demonstrate gas along the fifth metatarsal region and the patient underwent incision and drainage and debridement of all nonviable infected necrotic tissue from . She did develop sepsis secondary to infected bilateral foot infection with abscess and gangrene. Infectious disease was consulted and patient was treated with IV antibiotics during hospital stay and then discharged home on 03/15/2018 with an antibiotic regimen of Augmentin and Zyvox. Patient's wound care consisted of the wound VAC to the left foot ulcer and utilizing Gladys to the right foot ulcers. The patient does note that she has had difficulty performing her wound care. However she notes that home care is not approved by her insurance given how young she is. She notes that she is taking her antibiotics appropriately and she denies any systemic signs of infection at this time. She does state that she was told to follow-up with the nail polish brush machine feeder at the wound center. She does not have a PCP at this time. She otherwise denies any fever, chills, nausea, vomiting, shortness of breath, chest pain or pressure, syncope or presyncopal episodes. Past Medical History Past Medical History: Chronic Problems Obesity (BMI 30.0-34.9) (Chronic) Diabetes mellitus, type II (Chronic) Surgical History: - - Left lower extremity podiatric surgery including 2013 removal of foreign bodies and 2016 intervention on the fourth metatarsal as well as right middle finger surgery following injury in her childhood. Allergies/Adverse Reactions: Allergies clindamycin Allergy (Verified 03/10/18 17:37) Hives vancomycin Allergy (Verified 03/10/18 20:10) Hives/makes my heart race Home Medications: Ambulatory Orders Medication Instructions Recorded Cholecalciferol (Vitamin D3) 2,000 unit PO DAILY 03/10/18 [Vitamin D3] Insulin Glargine [Lantus SoloStar 62 units SC QHS 03/10/18 Pen] Amoxicillin/Potassium Clav [Amox 1 each PO BID #20 tablet 03/15/18 Tr-K Clv 875-125 mg Tab] Insulin Lispro [Humalog KwikPen] 14 unit SQ TID #0 03/15/18 Lactobacill 46/B.animal/Inulin 1 each PO DAILY #30 capsule 03/15/18 [Probiotic-10 10 Bill Cell Cap] Linezolid [Zyvox] 600 mg PO Q12H #20 tablet 03/15/18 Nystatin 500,000 unit PO 4X/DAY #40 udc 03/15/18 Ondansetron HCl [Zofran] 4 mg PO Q8H PRN 10 Days #30 tablet 03/15/18 Oxycodone [Oxyir] 5 mg PO Q4H PRN PRN 5 Days #20 03/15/18 tablet - Family History Maternal - - Patient notes a maternal family history of diabetes. Paternal - - Patient notes a paternal family history of prostate cancer, hypertension and diabetes. Smoking Status: Never smoker Review of Systems Constitutional: Denies: Chills, Fever, Weight Change Eyes: Denies: Pain, Vision Change HEENT: Denies: Difficulty Hearing, Difficulty Swallowing, Sinus Congestion Cardiovascular: Denies: Chest Pain, Palpitations Respiratory: Denies: Cough, Shortness of Breath Gastrointestinal: Denies: Diarrhea, Nausea, Vomiting Genitourinary: Denies: Dysuria, Hematuria Endocrine: Denies: Heat/ Cold Intolerance, Polydipsia, Polyuria Hematologic/ Lymphatic: Denies: Easy Bruising, Easy Bleeding - Physical Exam Vital Signs Temp Pulse Resp BP 98.4 F 103 H 18 150/89 H 03/16/18 16:39 03/16/18 16:39 03/16/18 16:39 03/16/18 16:39 General: Alert, Oriented x3, Cooperative, No apparent distress HEENT: Atraumatic Oral: Moist Mucosa Lungs: Clear to auscultation, Normal air movement Cardiovascular: Regular rate, Regular Rhythm, Normal S1, Normal S2 Abdomen: Bowel Sounds Present, Soft, Non Tender, Obese Extremities: No edema, Peripheral Pulses Normal Skin: Ulcer/ Wound - Right plantar DFU, right plantar great toe DFU, right dorsal incision wound, all with adherent slough and devitalized tissue, no purulent drainage or foul smell on exam. Erythematous wound edges are present at this time. Left plantar DFU and dorsal incision wound, slough and devitalized tissue present left plantar DFU with multiple areas of tendon exposed, no foul smell or odor. Wound Measurements and Assessment WC - Nurse 1 - General Ulcer Measurement Start: 03/16/18 15:40 Freq: Status: Active Protocol: Activity Type Activity Date Activity User E-Sign Co-Sign Detail Recorded Client Recorded Date Recorded By Document 03/16/18 16:39 AN [id number] 03/16/18 17:00 AN 03/16/18 16:39 Wound Center Nurse 1 [Ulcer Assessment] #5 RIGHT ANTERIOR DISTAL FOOT -Current Size (cm) - Length 1.4 -Current Size (cm) - Width 0.2 -Current Size (cm) - Depth 0.2 -Total Square Cm 0.28 -Photo Taken Yes -Epithelialization None Present -Tunneling No -Undermining/Tunneling No -Circular Undermining No -Classification - Thickness Unclassifiable (Eschar Covered ) -Exudate Amt Small (1-33%) -Exudate Type Sanguineous -Wound Margin Distinct, Outline Attached -Granulation Amt Medium (34-66%) -Granulation Quality [place] Red -Necrosis Amt Medium (34-66%) -Necrotic Tissue Type Eschar -Texture (Cheri-wound Skin Appearance) No Abnormality -Moisture (Cheri-wound Skin Appearance No Abnormality ) -Color (Cheri-wound Skin Appearance) No Abnormality -Temperature (Cheri-wound Skin No Abnormality Appearance) (Pt Warm) -Tenderness on Palpation (Cheri-wound Yes Skin Appearance) -Ulcer Cleansing Rinsed/ Irrigated with Saline -Foul Odor after Cleansing No -Anesthetic Used 5% Lidocaine Gel #4 RIGHT GREAT TOE MEDIAL -Current Size (cm) - Length 1.1 -Current Size (cm) - Width 1 -Current Size (cm) - Depth 0.2 -Total Square Cm 1.1 -Photo Taken Yes -Epithelialization None Present -Tunneling No -Undermining/Tunneling No -Circular Undermining No -Classification - Thickness Full Thickness without Exposed Support Structure -Exudate Amt None Present (0 %) -Wound Margin Distinct, Outline Attached -Granulation Amt None Present (0 %) -Granulation Quality Pale [place] -Slough/Fibrin No -Necrosis Amt Large (67-100%) -Necrotic Tissue Type Eschar -Structure Exposed Fat Layer Exposed -Texture (Cheri-wound Skin Appearance) Callus -Moisture (Cheri-wound Skin Appearance No Abnormality ) -Color (Cheri-wound Skin Appearance) No Abnormality -Temperature (Cheri-wound Skin No Abnormality Appearance) (Pt Warm) -Tenderness on Palpation (Cheri-wound No Skin Appearance) -Ulcer Cleansing Rinsed/ Irrigated with Saline -Foul Odor after Cleansing No -Anesthetic Used 5% Lidocaine Gel #3 RIGHT FOOT PLANTAR -Current Size (cm) - Length 4.5 -Current Size (cm) - Width 1.1 -Current Size (cm) - Depth 0.3 -Total Square Cm 4.95 -Photo Taken Yes -Epithelialization None Present -Tunneling No -Undermining/Tunneling No -Circular Undermining No -Classification - Thickness Full Thickness without Exposed Support Structure -Exudate Amt None Present (0 %) -Wound Margin Distinct, Outline Attached -Granulation Amt Large (67-100%) -Granulation Quality Pale [place] -Slough/Fibrin No -Necrosis Amt None Present (0 %) -Structure Exposed Fat Layer Exposed -Texture (Cheri-wound Skin Appearance) No Abnormality -Moisture (Cheri-wound Skin Appearance No Abnormality ) -Color (Cheri-wound Skin Appearance) No Abnormality -Temperature (Cheri-wound Skin No Abnormality Appearance) (Pt Warm) -Tenderness on Palpation (Cheri-wound Yes Skin Appearance) -Ulcer Cleansing Rinsed/ Irrigated with Saline -Foul Odor after Cleansing No -Anesthetic Used 5% Lidocaine Gel #2 LEFT DISTAL ANTERIOR -Combined with other wound No -Current Size (cm) - Length 3.1 -Current Size (cm) - Width 1.0 -Current Size (cm) - Depth 0.6 -Total Square Cm 3.10 -Photo Taken Yes -Epithelialization None Present -Tunneling No -Undermining/Tunneling No -Circular Undermining No -Classification - Thickness Full Thickness without Exposed Support Structure -Exudate Amt Medium (34-66%) -Exudate Type Sanguineous -Wound Margin Distinct, Outline Attached -Granulation Amt Large (67-100%) -Granulation Quality Red -Slough/Fibrin No -Necrosis Amt None Present (0 %) -Texture (Cheri-wound Skin Appearance) No Abnormality -Moisture (Cheri-wound Skin Appearance No Abnormality ) -Color (Cheri-wound Skin Appearance) No Abnormality -Temperature (Cheri-wound Skin No Abnormality Appearance) (Pt Warm) -Tenderness on Palpation (Cheri-wound Yes Skin Appearance) -Ulcer Cleansing Rinsed/ Irrigated with Saline -Anesthetic Used 5% Lidocaine Gel #1 LEFT PLANTAR -Combined with other wound No -Current Size (cm) - Length 11.6 -Current Size (cm) - Width 5.8 -Current Size (cm) - Depth 0.7 -Total Square Cm 67.28 -Photo Taken Yes -Epithelialization None Present -Tunneling No -Undermining/Tunneling No -Circular Undermining No -Classification - Thickness Full Thickness with Exposed Support Structure -Exudate Amt Large (67-100%) -Exudate Type Serosanguineous -Wound Margin Epibole -Granulation Amt Medium (34-66%) -Granulation Quality Pale [place] Red -Slough/Fibrin Yes -Necrosis Amt Small (1-33%) -Necrotic Tissue Type Eschar -Structure Exposed Tendon Fascia Fat Layer Exposed -Texture (Cheri-wound Skin Appearance) No Abnormality -Moisture (Cheri-wound Skin Appearance No Abnormality ) -Color (Cheri-wound Skin Appearance) No Abnormality -Temperature (Cheri-wound Skin No Abnormality Appearance) (Pt Warm) -Ulcer Cleansing Rinsed/ Irrigated with Saline -Foul Odor after Cleansing No -Anesthetic Used 5% Lidocaine Gel WC - Nurse 2 - General Ulcer CM Notes Start: 03/16/18 15:40 Freq: Status: Active Protocol: Activity Type Activity Date Activity User E-Sign Co-Sign Detail Recorded Client Recorded Date Recorded By Document 03/16/18 17:34 DV [id number] 03/16/18 19:05 DV 03/16/18 17:34 Wound Center Nurse 2 [Procedure/Treatment] #5 RIGHT ANTERIOR DISTAL FOOT -Time 19:01 -Correct Patient Yes -Correct Side, Site, Position Yes -Correct Procedure Yes -Procedure Performed Yes -Type of Procedure Debridement -Clinical Debridement Subcutaneous -Post Debridement Size (cm) - Length 1.4 -Post Debridement Size (cm) - Width 0.2 -Post Debridement Size (cm) - Depth 0.2 -Total Square Cm 0.28 -Wound/Ulcer Outcome Not Healed -Ulcer Cleansing Rinsed/ Irrigated with Saline -Foul Odor after Cleansing No -Bioengineered Tissue No -Bleeding Controlled with Pressure -Treatment Response Procedure Tolerated Well #4 RIGHT GREAT TOE MEDIAL -Time 19:02 -Correct Patient Yes -Correct Side, Site, Position Yes -Correct Procedure Yes -Procedure Performed Yes -Type of Procedure Debridement -Clinical Debridement Subcutaneous -Post Debridement Size (cm) - Length 1.4 -Post Debridement Size (cm) - Width 1.0 -Post Debridement Size (cm) - Depth 0.3 -Total Square Cm 1.40 -Wound/Ulcer Outcome Not Healed -Ulcer Cleansing Rinsed/ Irrigated with Saline -Foul Odor after Cleansing No -Bioengineered Tissue No -Bleeding Controlled with Pressure -Treatment Response Procedure Tolerated Well #3 RIGHT FOOT PLANTAR -Time 19:03 -Correct Patient Yes -Correct Side, Site, Position Yes -Correct Procedure Yes -Procedure Performed Yes -Type of Procedure Debridement -Clinical Debridement Subcutaneous -Post Debridement Size (cm) - Length 5.0 -Post Debridement Size (cm) - Width 1.5 -Post Debridement Size (cm) - Depth 0.3 -Total Square Cm 7.50 -Wound/Ulcer Outcome Not Healed -Ulcer Cleansing Rinsed/ Irrigated with Saline -Foul Odor after Cleansing No -Bleeding Controlled with Pressure -Treatment Response Procedure Tolerated Well #2 LEFT DISTAL ANTERIOR -Time 19:03 -Correct Patient Yes -Correct Side, Site, Position Yes -Correct Procedure Yes -Procedure Performed Yes -Type of Procedure Debridement -Clinical Debridement Subcutaneous -Post Debridement Size (cm) - Length 3.4 -Post Debridement Size (cm) - Width 1.5 -Post Debridement Size (cm) - Depth 0.6 -Total Square Cm 5.10 -Wound/Ulcer Outcome Not Healed -Ulcer Cleansing Rinsed/ Irrigated with Saline -Foul Odor after Cleansing No -Bleeding Controlled with Pressure -Treatment Response Procedure Tolerated Well #1 LEFT PLANTAR -Time 19:04 -Correct Patient Yes -Correct Side, Site, Position Yes -Correct Procedure Yes -Procedure Performed Yes -Type of Procedure Debridement -Clinical Debridement Subcutaneous -Post Debridement Size (cm) - Length 12.0 -Post Debridement Size (cm) - Width 6.0 -Post Debridement Size (cm) - Depth 0.7 -Total Square Cm 72.00 -Wound/Ulcer Outcome Not Healed -Ulcer Cleansing Rinsed/ Irrigated with Saline -Foul Odor after Cleansing No -Bleeding Controlled with Pressure -Treatment Response Procedure Tolerated Well [See Physician Procedure note for Specifics] Pain Scale: 0-10 Numeric [Pain] -Is Patient Pain Free? Yes Neurological: Neuro grossly intact Psych/Mental Status: Normal Affect, Appropriate, Alert and oriented to time, place, person, mood and affect Debridement Note Post-Debridement Measurements/Treatment WC - Nurse 2 - General Ulcer CM Notes Start: 03/16/18 15:40 Freq: Status: Active Protocol: Activity Type Activity Date Activity User E-Sign Co-Sign Detail Recorded Client Recorded Date Recorded By Document 03/16/18 17:34 DV [id number] 03/16/18 19:05 DV 03/16/18 17:34 Wound Center Nurse 2 #5 RIGHT ANTERIOR DISTAL FOOT -Time 19:01 -Correct Patient Yes -Correct Side, Site, Position Yes -Correct Procedure Yes -Procedure Performed Yes -Type of Procedure Debridement -Clinical Debridement Subcutaneous -Post Debridement Size (cm) - Length 1.4 -Post Debridement Size (cm) - Width 0.2 -Post Debridement Size (cm) - Depth 0.2 -Total Square Cm 0.28 -Wound/Ulcer Outcome Not Healed -Ulcer Cleansing Rinsed/ Irrigated with Saline -Foul Odor after Cleansing No -Bioengineered Tissue No -Bleeding Controlled with Pressure -Treatment Response Procedure Tolerated Well #4 RIGHT GREAT TOE MEDIAL -Time 19:02 -Correct Patient Yes -Correct Side, Site, Position Yes -Correct Procedure Yes -Procedure Performed Yes -Type of Procedure Debridement -Clinical Debridement Subcutaneous -Post Debridement Size (cm) - Length 1.4 -Post Debridement Size (cm) - Width 1.0 -Post Debridement Size (cm) - Depth 0.3 -Total Square Cm 1.40 -Wound/Ulcer Outcome Not Healed -Ulcer Cleansing Rinsed/ Irrigated with Saline -Foul Odor after Cleansing No -Bioengineered Tissue No -Bleeding Controlled with Pressure -Treatment Response Procedure Tolerated Well #3 RIGHT FOOT PLANTAR -Time 19:03 -Correct Patient Yes -Correct Side, Site, Position Yes -Correct Procedure Yes -Procedure Performed Yes -Type of Procedure Debridement -Clinical Debridement Subcutaneous -Post Debridement Size (cm) - Length 5.0 -Post Debridement Size (cm) - Width 1.5 -Post Debridement Size (cm) - Depth 0.3 -Total Square Cm 7.50 -Wound/Ulcer Outcome Not Healed -Ulcer Cleansing Rinsed/ Irrigated with Saline -Foul Odor after Cleansing No -Bleeding Controlled with Pressure -Treatment Response Procedure Tolerated Well #2 LEFT DISTAL ANTERIOR -Time 19:03 -Correct Patient Yes -Correct Side, Site, Position Yes -Correct Procedure Yes -Procedure Performed Yes -Type of Procedure Debridement -Clinical Debridement Subcutaneous -Post Debridement Size (cm) - Length 3.4 -Post Debridement Size (cm) - Width 1.5 -Post Debridement Size (cm) - Depth 0.6 -Total Square Cm 5.10 -Wound/Ulcer Outcome Not Healed -Ulcer Cleansing Rinsed/ Irrigated with Saline -Foul Odor after Cleansing No -Bleeding Controlled with Pressure -Treatment Response Procedure Tolerated Well #1 LEFT PLANTAR -Time 19:04 -Correct Patient Yes -Correct Side, Site, Position Yes -Correct Procedure Yes -Procedure Performed Yes -Type of Procedure Debridement -Clinical Debridement Subcutaneous -Post Debridement Size (cm) - Length 12.0 -Post Debridement Size (cm) - Width 6.0 -Post Debridement Size (cm) - Depth 0.7 -Total Square Cm 72.00 -Wound/Ulcer Outcome Not Healed -Ulcer Cleansing Rinsed/ Irrigated with Saline -Foul Odor after Cleansing No -Bleeding Controlled with Pressure -Treatment Response Procedure Tolerated Well Pain Scale: 0-10 Numeric Is Patient Pain Free? Yes Wound debrided: Right anterior dorsal foot incision Laterality: Right Type of Debridement: Excisional debridement Anesthesia Used: 5% Lidocaine Gel Depth: in the subcutaneous layer Percentage of wound debrided: 100 Instrument Used: 5mm curette Tissue Removed: Slough and devitalized tissue Severity: Fat Layer Exposed Amount of bleeding with debridement: Mild Bleeding Controlled with: Pressure Patient tolerated procedure well - Additional Wound Wound debrided: Right great toe medial plantar and right plantar foot ulcers Laterality: Right Wound Grade/Stage: Camacho 2 Type of Debridement: Excisional debridement Anesthesia Used: 5% Lidocaine Gel Depth: in the subcutaneous layer Percentage of wound debrided: 100 Instrument Used: 5mm curette Tissue Removed: Slough and devitalized tissue Severity: Fat Layer Exposed Amount of bleeding with debridement: Mild Bleeding Controlled with: Pressure Patient tolerated procedure: Patient tolerated procedure well - Additional Wound Wound debrided: Left plantar DFU Laterality: Left Wound Grade/Stage: Camacho 3 Type of Debridement: Excisional debridement Anesthesia Used: 5% Lidocaine Gel Depth: in the subcutaneous layer, to muscle Percentage of wound debrided: 100 Instrument Used: 5mm curette Tissue Removed: slough and devitalized tissue Severity: Necrosis of Muscle - multiple areas of tendon exposed Amount of bleeding with debridement: Mild Bleeding Controlled with: Pressure Patient tolerated procedure: Patient tolerated procedure well Assessment/Plan Active Problems Type 2 diabetes mellitus with diabetic polyneuropathy (Acute) Cellulitis of right foot (Acute) Cellulitis of left foot (Acute) Ulcer of right foot with necrosis of muscle (Acute) Obesity (BMI 30.0-34.9) (Chronic) Diabetes mellitus, type II (Chronic) Assessment: see above diagnoses Plan: Patients care will be transferred to podiatry Dr. Simpson and this was courtesy visit due to the extent and nature of patients ulcers. The patient was seen and examined at the wound center today and was updated on the plan of care. A subcutaneous debridement was performed today. The patient tolerated the procedure well. The patients wound care will consist of: Wound vac with adaptic over tendons to left foot ulcers and gladys to right foot ulcers. Wound cultures were previously reviewed and patient remains adherant to her antibiotic regimen per infectious disease. Baseline bloodwork reviewed and most recent A1C 12.9, referral to PCP and endocrinology. Patient educated on the importance of diet on wound healing and instructed to increase protein and vitamin C intake. Patient educated on proper offloading mechanisms and will follow with podiatry per their recommendation. Patient verbalized understanding. Patient will follow up at [facility] in one week or sooner if needed. Patient would benefit from homecare, however, she notes that her insurance will not cover this due to her age. This note was generated with [employer] dictation software. It may contain incorrect words, spelling, and punctuation that were not noted in checking the note before signing. Code Visit Office Visits / Consults: [id number] OV L4 Est [id number]: [id number] Sandhya subq tissue 20 sq cm/<
--- NOTE | 2018-03-26 12:36 | LEAS_ITS ---
Arterial Study - Arterial Study Arterial Study: This is a 28-year-old female with suspected peripheral arterial occlusive disease. She is brought to the noninvasive vascular laboratory at this time for the purpose of bilateral noninvasive lower extremity arterial assessment. Doppler signal assessment was used to evaluate the pulses at ankle level bilaterally. On the right, the posterior tibial and dorsalis pedis pulses were triphasic. On the left, the posterior tibial pulse was triphasic. The left dorsalis pedis pulse was not assessed. Segmental limb pressures were obtained bilaterally. The right ankle pressure, as determined by posterior tibial pulse, was measured at 174 mmHg. The right ankle pressure, as determined by dorsalis pedis pulse, was measured at 167 mmHg. The right digital pressure was measured at 142 mmHg. The left ankle pressure, as determined by posterior tibial pulse, was measured at 174 mmHg. The left ankle pressure, as determined by dorsalis pedis pulse, was not assessed. The left digital pressure was measured at 142 mmHg. Pulse?volume recordings were obtained bilaterally and segmentally. Waveform amplitudes appeared to be satisfactory bilaterally at low thigh, calf, and ankle levels. The left digital waveform amplitude appeared to be slightly diminished. Resting ankle?brachial indices were calculated bilaterally. The resting right ankle?brachial index was calculated to be 1.23. The resting left ankle?brachial index is calculated to be 1.23. Digital?brachial indices were calculated bilaterally. The right digital- brachial index was calculated to be 1.01. The left digital-brachial index was calculated to be 1.01. Impression: Based upon the findings of this resting noninvasive lower extremity arterial study, there is no evidence of significant atherosclerotic peripheral arterial occlusive disease in the lower extremities bilaterally. Triphasic waveforms were noted at ankle level bilaterally. Resting ankle?brachial indices were bilaterally normal. Digital-brachial indices were also normal bilaterally. In summary, this represents a normal resting noninvasive lower extremity arterial study bilaterally.
== END 2018-03-19 23:59 ==
LOC: WC 15:17
PROVIDERS: Visit Provider Podiatrist
DX: E11.621 Type 2 diabetes mellitus with foot ulcer (principal); L97.523 Non-pressure chronic ulcer of other part of left foot with necrosis of muscle; E11.42 Type 2 diabetes mellitus with diabetic polyneuropathy; E66.9 Obesity, unspecified; Z68.31 Body mass index [BMI] 31.0-31.9, adult; Z71.3 Dietary counseling and surveillance; E11.65 Type 2 diabetes mellitus with hyperglycemia; Z86.14 Personal history of Methicillin resistant Staphylococcus aureus infection; Z79.899 Other long term (current) drug therapy; Z79.4 Long term (current) use of insulin; L97.512 Non-pressure chronic ulcer of other part of right foot with fat layer exposed
CPT/HCPCS: 11042; 11045; 99214; G0463

== ENCOUNTER 2018-04-11 13:07 | Day surgery (SDC) | payer OTHER, SELFPAY ==
[2018-04-11 12:31] LABS: Absolute Lymphocyte Count 3.47 X10^3/ul (0.83-4.51); Absolute Neutrophil Count 6.4 X10^3/uL (2.0-7.7); Basophil# 0.03 X10^3/uL; Basophil% 0.3 % (0-1); Differential Indicated SCAN CRITERIA MET; Eosinophil# 0.22 X10^3/uL; Eosinophils% 2.1 % (0-5); Hematocrit 33.8 % (37-47); Hemoglobin 10.7 g/dl (12.0-15.0); Lymphocyte # 3.47 X10^3/ul (4.0); Lymphocyte % 32.3 % (19-41); Mean Corp Hgb Conc 31.7 g/gl (32-36); Mean Corpuscular Hgb 25.6 pg (27.0-32.0); Mean Corpuscular Volume 80.9 fL (81-99); Mean Platelet Vol. 8.7 fl (6.2-12.0); Monocyte# 0.63 X10^3/uL; Monocyte% 5.9 % (0-10); Neutrophil # 6.37 X10^3/uL (2.7-7.7); Neutrophil % 59.3 % (47-70); POSITIVE COUNT NO; POSITIVE DIFFERENTIAL NO; POSITIVE MORPHOLOGY YES; Platelet Count 382 K/mm3 (150-450); RBC Distribution Width CV 15.3 % (11.6-14.6); RBC Distribution Width SD 43.6 fl (35.1-43.9); Red Blood Count 4.18 M/mm3 (4.2-5.4); White Blood Count 10.7 K/mm3 (4.4-11.0)
[2018-04-11 12:35] VITALS: BP 126/70; PULSE 102; RESP 16; TEMP 37.1; O2SAT 99; BMI 35.3
[2018-04-11 12:50] LABS: Pregnancy, Serum, hCG Quali. NEGATIVE Negative (0-9 Nonpreg)
[2018-04-11] MEDS: Bupivacaine 0.5% PF 10 ML VIAL (13:18)
[2018-04-11 13:55] LABS: Bedside Glucose 96 mg/dL (70-110)
[2018-04-11 14:50] VITALS: BP 126/70; BP 127/78; PULSE 87; RESP 16; TEMP 36.4; O2SAT 94
--- NOTE | 2018-04-11 14:53 | PCM.DC.POD ---
Discharge Diet: No Restrictions Discharge Activity: May not drive while taking narcotic pain medications., Use Walker, Use Crutches Weight Bearing Status: Partial weight bearing - heel weight bear with surgical shoe right foot, No weight bearing - no weight to left foot with surgical shoe Keep extremity elevated above heart level: Left Leg, Right Leg Call your doctor if your incision/area has: Continuous Slow Oozing, Sudden Increased Bleeding, Increased Pain/ Swelling, Increased Redness, Foul Smelling Discharge, Swelling at the incision site, - - wound vac malfunction Call your doctor if you observe: Fever of 101 or Higher, Calf discomfort, Uncontrolled pain Cleanse incision/area with: Keep Dressing Clean & Dry, - - keep wound vac on 150 mmHg continuous until follow up Allergies/Adverse Reactions: Allergies clindamycin Allergy (Verified 04/07/18 08:06) Hives vancomycin Allergy (Verified 04/07/18 08:06) Hives/makes my heart race Medications to take at Discharge Cholecalciferol (Vitamin D3) [Vitamin D3] 2,000 unit PO DAILY 03/10/18 insulin glargine (U-100) 100 unit/mL (3 mL) subcutaneous pen 68 unit SUBCUT QHS #15 ml 03/30/18 insulin lispro (U- 100) 100 unit/mL subcutaneous pen 14 unit SC TID #15 ml 03/30/18 Primary Care Physician: Raman Shepard MD [Primary Care Provider] - Test Results: Test results from this visit will be discussed in further detail at your follow-up appointment, if applicable. Please Follow Up With: Addie Simpson DPM When: next Tuesday [facility]. Call [phone] sooner if concern Proposed Discharge Date: 04/11/18
--- NOTE | 2018-04-11 14:56 | DCINST_ITS ---
Discharge Diet: No Restrictions Discharge Activity: May not drive while taking narcotic pain medications., Use Walker, Use Crutches Weight Bearing Status: Partial weight bearing - heel weight bear with surgical shoe right foot, No weight bearing - no weight to left foot with surgical shoe Keep extremity elevated above heart level: Left Leg, Right Leg Call your doctor if your incision/area has: Continuous Slow Oozing, Sudden Increased Bleeding, Increased Pain/ Swelling, Increased Redness, Foul Smelling Discharge, Swelling at the incision site, - - wound vac malfunction Call your doctor if you observe: Fever of 101 or Higher, Calf discomfort, Uncontrolled pain Cleanse incision/area with: Keep Dressing Clean & Dry, - - keep wound vac on 150 mmHg continuous until follow up Allergies/Adverse Reactions: Allergies clindamycin Allergy (Verified 04/07/18 08:06) Hives vancomycin Allergy (Verified 04/07/18 08:06) Hives/makes my heart race Medications to take at Discharge Cholecalciferol (Vitamin D3) [Vitamin D3] 2,000 unit PO DAILY 03/10/18 insulin glargine (U-100) 100 unit/mL (3 mL) subcutaneous pen 68 unit SUBCUT QHS #15 ml 03/30/18 insulin lispro (U- 100) 100 unit/mL subcutaneous pen 14 unit SC TID #15 ml 03/30/18 Primary Care Physician: Raman Shepard MD [Primary Care Provider] - Test Results: Test results from this visit will be discussed in further detail at your follow- up appointment, if applicable. Please Follow Up With: Addie Simpson DPM When: [facility] Call [phone] sooner if concern Proposed Discharge Date: 04/11/18
--- NOTE | 2018-04-11 14:56 | PCM.IMDPSTOP ---
Problem List (1) Chronic ulcer of left foot with fat layer exposed Status: Chronic (2) Chronic ulcer of left foot with necrosis of muscle Status: Chronic (3) Type 2 diabetes mellitus with diabetic polyneuropathy Status: Chronic (4) Ulcer of right foot with fat layer exposed Status: Chronic Immediate Post-Op Note Date of Procedure: 04/11/18 Primary Surgeon/Physician: Addie Simpson, BOO snow shoveler: none Pre-Operative Diagnosis: ulcer right foot with fat layer exposed (plantar). ulcer right foot with fat layer exposed (hallux). ulcer left foot with fat layer exposed (dorsal). ulcer left foot with fat and tendon layers exposed (plantar) Post-Operative Diagnosis: ulcer right foot with fat layer exposed (plantar). ulcer right foot with fat layer exposed (hallux). ulcer left foot with fat layer exposed (dorsal). ulcer left foot with fat and tendon layers exposed (plantar) Surgery/Procedure Performed:: subcutaneous excisional versajet debridement of plantar right foot ulcer. subcutaneous excisional versajet debridement of plantar right hallux ulcer. subcutaneous excisional versajet debridement of dorsal left foot ulcer. tendon and subcutaneous versajet excisional debridement of plantar left foot ulcer Description of Surgical Findings:: Hemostasis controlled, no tourniquet utilized Materials: 500 mL amniofill bilateral, 2 x 3 cm epi cord bilateral, Adaptic, 2-0 nylon, KCI wound VAC applied left foot Complications: None The patient tolerated the procedure and anesthesia well. She was transported to the PACU with vital signs stable and vascular status intact to bilateral lower extremities. She will be discharged home upon continued stability. All postoperative orders were entered electronically. Estimated Blood Loss: <75 mL Specimen's removed: none Type of Anesthesia:: General - LMA, Local - Preoperative: 1:1 mixture of 1% lidocaine plain and 0.5% Marcaine plain administered local infiltrative subdermal fashion to bilateral foot ulcer sites, 15 cc - Admit VTE Documentation VTE Present on Admission: No VTE Mechan Device Prophylaxis: SCD's VTE Pharm Prophylaxis ordered?: No Reason prophylaxis not ordered:: Treatment Not Indicated
[2018-04-11 14:58] VITALS: BP 125/7; BP 126/70; PULSE 96; RESP 18; O2SAT 94
--- NOTE | 2018-04-11 15:00 | OP.PN_ITS ---
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 ul cer right foot with fat layer exposed (hallux). ulcer left foot with fat layer exposed (dorsal). ulcer left foot with fat and tendon layers exposed (plantar) Post-Operative Diagnosis: ulcer right foot with fat layer exposed (plantar). ulcer right foot with fat layer exposed (hallux). ulcer left foot with fat layer exposed (dorsal). ulcer left foot with fat and tendon layers exposed (plantar) Surgery/Procedure Performed:: subcutaneous excisional versajet debridement of plantar right foot ulcer. subcutaneous excisional versajet debridement of plantar right hallux ulcer. subcutaneous excisional versajet debridement of dorsal left foot ulcer. tendon and subcutaneous versajet excisional debridement of plantar left foot ulcer Description of Surgical Findings:: Hemostasis controlled, no tourniquet utilized Materials: 500 mL amniofill bilateral, 2 x 3 cm epi cord bilateral, Adaptic, 2-0 nylon, KCI wound VAC applied left foot Complications: None The patient tolerated the procedure and anesthesia well. She was transported to the PACU with vital signs stable and vascular status intact to bilateral lower extremities. She will be discharged home upon continued stability. All postoperative orders were entered electronically. Estimated Blood Loss: <75 mL Specimen's removed: none Type of Anesthesia:: General - LMA, Local - Preoperative: 1:1 mixture of 1% lidocaine plain and 0.5% Marcaine plain administered local infiltrative sub dermal fashion to bilateral foot ulcer sites, 15 cc - Admit VTE Documentation VTE Present on Admission: No VTE Mechan Device Prophylaxis: SCD's VTE Pharm Prophylaxis ordered?: No Reason prophylaxis not ordered:: Treatment Not Indicated
[2018-04-11 15:01] LABS: Bedside Glucose 97 mg/dL (70-110)
[2018-04-11 15:14] VITALS: BP 126/70; BP 126/79; PULSE 87; RESP 18; TEMP 37.1; O2SAT 99
--- NOTE | 2018-04-11 15:15 | OP.PCM_ITS ---
Problem List (1) Chronic ulcer of left foot with fat layer exposed Status: Chronic (2) Chronic ulcer of left foot with necrosis of muscle Status: Chronic (3) Type 2 diabetes mellitus with diabetic polyneuropathy Status: Chronic (4) Ulcer of right foot with fat layer exposed Status: Chronic Report of Operation Date of Procedure: 04/11/18 Pre-Operative Diagnosis: ulcer right foot with fat layer exposed (plantar). ulcer right foot with fat layer exposed (hallux). ulcer left foot with fat layer exposed (dorsal). ulcer left foot with fat and tendon layers exposed (plantar) Post-Operative Diagnosis: ulcer right foot with fat layer exposed (plantar). ulcer right foot with fat layer exposed (hallux). ulcer left foot with fat layer exposed (dorsal). ulcer left foot with fat and tendon layers exposed (plantar) Surgery/Procedure Performed:: -subcutaneous excisional versajet debridement of plantar right foot ulcer with application of epi cord and amniofill. - subcutaneous excisional versajet debridement of plantar right hallux ulcer with application of amniofill. -subcutaneous excisional versajet debridement of dorsal left foot ulcer with application of amniofill. -tendon and subcutaneous versajet excisional debridement of plantar left foot ulcer with application of amniofill and epi cord with additional application of wound VAC Description of Surgical Findings:: Hemostasis controlled, no tourniquet utilized Materials: 500 mL amniofill bilateral, 2 x 3 cm epi cord bilateral, Adaptic, 2-0 nylon, KCI wound VAC applied left foot Complications: None trade mark attorney: none Type of Anesthesia:: General - LMA, Local - Preoperative: 1:1 mixture of 1% lidocaine plain and 0.5% Marcaine plain administered local infiltrative subdermal fashion to bilateral foot ulcer sites, 15 cc Specimen's removed: none Estimated Blood Loss (mL): <75 mL Description of Procedure: Indications: This 28 year old female with diabetes, obesity, and delayed wound healing has been treated with a comprehensive wound healing plan following a previous acute infection that required widespread necrotic tissue debridement with drainage to bilateral feet. She completed a course of IV antibiotics consisting of vancomycin and Zosyn under the management of infectious disease. There are currently no local signs of infection or systemic illness today. The patient's case was reviewed and discussed with the patient. The preoperative indications, planned procedure, possible benefits, risks, complications, and anticipated healing time and management were discussed in detail. The patient understands risks and complications include but are not limited to the following: Pain, swelling, redness, scarring, delayed or nonhealing, need for further surgery, allergic reaction, blood clot, chronic pain, loss of limb, function, life. The surgical limb and the surgical consent were signed. I answered all her questions. No guarantees were made. She understands this will likely be a staged procedure. Her preoperative history and physical exam and diagnostic data were reviewed. She is considered stable to proceed with this procedure at this time. Her preoperative diagnostic data including labs were reviewed of the following urine negative, white blood cell count 10.7, C-reactive protein 25.6, last ESR 81, and hemoglobin A1c 12.9%. Procedure in detail: The patient was transported to the operating room via cart and placed on the operating table in the supine position. Final verification was then performed via the timeout procedure including patient, planned procedure, and limb designations. LMA anesthesia was initiated by the anesthesia team. Local anesthesia was administered by the podiatry team as noted above. Bilateral lower extremities were prepped and draped in the usual aseptic manner and surgery began as the following: Versa jet and setting 8 was used to perform a subcutaneous excisional debridement to all ulcer sites to remove nonviable fibrous tissue, devitalized subcutaneous tissue, biofilm, slough. It is noted there is exposed tendon tissue only to the plantar left foot measuring 4 cm in length by 0.6 cm in width. Pressure was applied to maintain hemostasis and she appeared to have tolerated this well. There was no necrosis infection or uncontrolled bleeding noted. The ulcer ulcer bed is granular with some interspersed fibrous tissue. There was no bone exposed. There was no purulence or infection noted. Saline irrigation was performed to all sites. The ulcer debridement measurements were as the following on the left lower limb: Plantar ulcer pre-debridement 9.6 cm x 5.2 cm x 0.4 cm and post debridement 10 cm x 5.5 cm x 0.4 cm (flexor hallucis longus and devitalized tendon was also debrided and excised with a 15 blade and pickup and versa jet at this site); dorsal left foot pre-debridement 1.8 cm x 0.3 cm x 0.2 cm and post debridement 2 cm x 0.5 cm x 0.2 cm; plantar right foot pre-debridement 3.2 cm x 1.5 cm x 1.9 cm and post debridement 3.6 cm x 1.7 cm x 1.9 cm; and plantar hallux pre-debridement 1.3 cm x 0.9 cm x 0.2 cm and post debridement 1.4 cm x 1.0 cm x 0.2 cm. Next advanced wound healing product, amniofill, was applied copiously to cover all debridement sites; 500 mg was utilized. Additional epi cord was applied to cover the exposed tendon to the plantar left foot and the remaining portion was packed into the deep plantar right foot deficit. The epi cord was gently sutured in place to the left plantar foot. Additional Adaptic was applied to the plantar left ulcer site and this was additionally sutured in place with 2-0 nylon. Adaptic was applied to all other ulcer sites and was secured with Steri-Strips. All sites were gently moistened with saline to initiate incorporation of the advanced wound care product. Skin-Prep was applied around the aforementioned ulcer sites prior to Steri-Strip placement. A wound VAC was carefully placed to the plantar left foot. No leaks were identified. This was set at 150 mmHg continuous. Additional dressing was applied including the following: gauze, abdominal pads, Kerlix, and Derrick wraps. After procedure: The patient tolerated the procedure and anesthesia well. She was transferred to the PACU with vital signs stable and vascular status intact to bilateral lower extremities. Her capillary refill time remains brisk to all remaining digits of both feet, and there was no pulsatile bleeding noted prior to dressing application. He was advised to ice and elevate for pain and inflammation management. She was advised to take OTC Tylenol for pain control in a safe manner. She was advised to keep her wound vac and dressings clean, dry, and intact until she comes to the wound healing center next Tuesday. Postoperative orders were entered electronically. She understands this is likely a staged procedure and is part of a comprehensive wound healing plan. She was advised to continue to keep pressure directly off the ulcer sites and to continue with diabetic and medical management with her primary car physician. To continue to take nutritional supplementation to optimize healing. Recommended weightbearing status was also clarified including heel weightbearing to the right lower extremity with surgical shoe and nonweightbearing to the left lower extremity with surgical shoe. Addie Simpson DPM, [facility] [place]
[2018-04-11 15:50] VITALS: BP 126/70
== END 2018-04-11 15:56 | disposition home or self-care (01) ==
LOC: SDC 13:08 → AC 13:09
PROVIDERS: Family Provider Internal Medicine; PCP Internal Medicine; Referring Provider Podiatrist; Visit Provider Podiatrist
PROC: (CPT 11043; principal; 2018-04-11 13:15)
DX: E11.621 Type 2 diabetes mellitus with foot ulcer (principal); E11.42 Type 2 diabetes mellitus with diabetic polyneuropathy; E11.622 Type 2 diabetes mellitus with other skin ulcer; L97.523 Non-pressure chronic ulcer of other part of left foot with necrosis of muscle; L97.512 Non-pressure chronic ulcer of other part of right foot with fat layer exposed; L97.522 Non-pressure chronic ulcer of other part of left foot with fat layer exposed; E11.65 Type 2 diabetes mellitus with hyperglycemia; Z79.4 Long term (current) use of insulin; Z79.899 Other long term (current) drug therapy
CPT/HCPCS: 01470; 11043; 11046 ×2; 36415; 82962; 84703; 85025; 86140; J7120; J2405

== ENCOUNTER 2018-04-19 13:00 | Outpatient (RCR) | payer OTHER, SELFPAY ==
[2018-03-20 01:51] VITALS: BP 150/89; PULSE 103; RESP 18; TEMP 36.9
[2018-03-20 13:57] VITALS: BP 151/90; PULSE 121; RESP 16; TEMP 37
[2018-03-21 14:24] VITALS: BP 150/92; PULSE 106; RESP 20; TEMP 36.4
--- NOTE | 2018-03-21 15:57 | PCM.WC.PN ---
(1) Ulcer of right foot with necrosis of muscle Status: Chronic Current Visit: Yes Code(s): L97.513 - Non-pressure chronic ulcer of other part of right foot with necrosis of muscle (2) Chronic ulcer of left foot with necrosis of muscle Status: Chronic Current Visit: Yes Code(s): L97.523 - Non-pressure chronic ulcer of other part of left foot with necrosis of muscle (3) Type 2 diabetes mellitus with diabetic polyneuropathy Status: Chronic Current Visit: Yes Code(s): E11.42 - Type 2 diabetes mellitus with diabetic polyneuropathy (4) Cellulitis Status: Acute Current Visit: Yes Qualifiers: Site of cellulitis of extremity: lower extremity Laterality: left Code(s): L03.90 - Cellulitis, unspecified Type of Wound Chief Complaint: Nonhealing ulcers b/l feet History of Wound: This 28-year-old female with uncontrolled diabetes returns to clinic for follow-up of bilateral ulcers. 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 She continues with a wound VAC on the left foot and Valorie application to the right foot. She denies fever, chill, nausea, vomiting. She is eager to return to walking activity. She denies redness or odors. Progress of Wound: Stable - Physical Exam Vital Signs Temp Pulse Resp BP 97.6 F L 106 H 20 H 150/92 H 03/21/18 14:24 03/21/18 14:24 03/21/18 14:24 03/21/18 14:24 General: Alert, Oriented x3, Cooperative Extremities: No cyanosis, Capillary Refill Less than 3 Seconds, No Calf Tenderness - Negative Chiquita and Rockwell sign, Diminished Peripheral Pulses, Edema - Bilateral lower extreme knees, Tenderness - Pain with left foot ulcer manipulation. No fluctuance or bogginess cheri ulcers bilateral Skin: Ulcer/ Wound - No purulence, no erythema, streaking, no odor, no infection to bilateral feet. The peripheral skin is atrophic and there is scant hair bilateral. There is an area of maceration that has serous weeping to the adjacent border on the left medial arch without mickey purulence on expression, - - There is some exposed muscular and tendon tissues on the left foot Wound Measurements and Assessment WC - Nurse 1 - General Ulcer Measurement Start: 03/20/18 13:54 Freq: Status: Active Protocol: Activity Type Activity Date Activity User E-Sign Co-Sign Detail Recorded Client Recorded Date Recorded By Document 03/20/18 13:57 DV [id number] 03/20/18 14:05 DV Document 03/21/18 14:24 DL [id number] 03/21/18 14:43 DL 03/20/18 03/21/18 13:57 14:24 [Ulcer Assessment] #5 RIGHT ANTERIOR DISTAL FOOT -Current Size (cm) - Length 0.8 -Current Size (cm) - Width 0.2 -Current Size (cm) - Depth 0.2 -Total Square Cm 0.16 -Photo Taken No -Exudate Amt None Present (0 %) -Wound Margin Distinct, Outline Attached -Granulation Amt Large (67-100%) -Granulation Quality Red -Necrosis Amt None Present (0 %) -Structure Exposed N/A -Texture (Cheri-wound Skin Appearance) No Abnormality -Moisture (Cheri-wound Skin Appearance No Abnormality ) -Color (Cheri-wound Skin Appearance) No Abnormality -Temperature (Cheri-wound Skin No Abnormality Appearance) (Pt Warm) -Tenderness on Palpation (Cheri-wound No Skin Appearance) -Ulcer Cleansing Wound Cleanser -Foul Odor after Cleansing No -Anesthetic Used 4% Lidocaine Solution #4 RIGHT GREAT TOE MEDIAL -Current Size (cm) - Length 0.9 -Current Size (cm) - Width 0.7 -Current Size (cm) - Depth 0.2 -Total Square Cm 0.63 -Photo Taken No -Exudate Amt Small (1-33%) -Exudate Type Serosanguineous -Wound Margin Thickened -Granulation Amt Medium (34-66%) -Granulation Quality [place] -Necrosis Amt Medium (34-66%) -Necrotic Tissue Type Adherent Slough -Structure Exposed N/A -Texture (Cheri-wound Skin Appearance) Localized Edema Scarring -Moisture (Cheri-wound Skin Appearance Dry/Scaly ) -Color (Cheri-wound Skin Appearance) No Abnormality -Temperature (Cheri-wound Skin No Abnormality Appearance) (Pt Warm) -Tenderness on Palpation (Cheri-wound No Skin Appearance) -Ulcer Cleansing Wound Cleanser -Anesthetic Used 4% Lidocaine Solution #3 RIGHT FOOT PLANTAR -Current Size (cm) - Length 4.4 -Current Size (cm) - Width 0.9 -Current Size (cm) - Depth 0.4 -Total Square Cm 3.96 -Photo Taken No -Exudate Amt Small (1-33%) -Exudate Type Serosanguineous -Wound Margin Thickened -Granulation Amt Medium (34-66%) -Granulation Quality [place] -Necrosis Amt Medium (34-66%) -Necrotic Tissue Type Adherent Slough -Structure Exposed N/A -Texture (Cheri-wound Skin Appearance) Localized Edema Scarring -Moisture (Cheri-wound Skin Appearance Dry/Scaly ) -Color (Cheri-wound Skin Appearance) No Abnormality Erythema -Temperature (Cheri-wound Skin No Abnormality Appearance) (Pt Warm) -Tenderness on Palpation (Cheri-wound No Skin Appearance) -Ulcer Cleansing Wound Cleanser -Foul Odor after Cleansing No -Anesthetic Used 4% Lidocaine Solution #2 LEFT DISTAL ANTERIOR -Current Size (cm) - Length 3 -Current Size (cm) - Width 1.1 -Current Size (cm) - Depth 1 -Total Square Cm 3.3 -Photo Taken No -Exudate Amt Small (1-33%) -Exudate Type Serosanguineous -Wound Margin Distinct, Outline Attached -Granulation Amt Large (67-100%) -Granulation Quality Red -Necrosis Amt Small (1-33%) -Necrotic Tissue Type Adherent Slough -Structure Exposed N/A -Texture (Cheri-wound Skin Appearance) Localized Edema Scarring -Moisture (Cheri-wound Skin Appearance No Abnormality ) -Color (Cheri-wound Skin Appearance) No Abnormality -Temperature (Cheri-wound Skin No Abnormality Appearance) (Pt Warm) -Ulcer Cleansing Wound Cleanser -Foul Odor after Cleansing No -Anesthetic Used 4% Lidocaine Solution #1 LEFT PLANTAR -Current Size (cm) - Length 1.6 -Current Size (cm) - Width 5 -Current Size (cm) - Depth 0.5 -Total Square Cm 8.0 -Photo Taken No -Exudate Amt Large (67-100%) -Exudate Type Serosanguineous -Wound Margin Thickened -Granulation Amt Small (1-33%) -Granulation Quality [place] -Necrosis Amt Large (67-100%) -Necrotic Tissue Type Adherent Slough -Structure Exposed Tendon -Texture (Cheri-wound Skin Appearance) Localized Edema Scarring -Moisture (Cheri-wound Skin Appearance Maceration ) -Color (Cheri-wound Skin Appearance) Erythema Rubor -Temperature (Cheri-wound Skin No Abnormality Appearance) (Pt Warm) -Tenderness on Palpation (Cheri-wound No Skin Appearance) -Ulcer Cleansing Wound Cleanser -Foul Odor after Cleansing No -Anesthetic Used 4% Lidocaine Solution Wound Center Nurse 1 [Edema Assessment] -Lower Limb Edema Present No -Right Calf (cm) 40 -Right Ankle (cm) 24.2 -Left Calf (cm) 37.3 -Left Ankle (cm) 25 WC - Nurse 2 - General Ulcer CM Notes Start: 03/20/18 13:54 Freq: Status: Active Protocol: Activity Type Activity Date Activity User E-Sign Co-Sign Detail Recorded Client Recorded Date Recorded By Document 03/21/18 15:13 TM [id number] 03/21/18 15:20 TM 03/21/18 15:13 Wound Center Nurse 2 [Procedure/Treatment] #5 RIGHT ANTERIOR DISTAL FOOT -Time 15:13 -Correct Patient Yes -Correct Side, Site, Position Yes -Correct Procedure Yes -Procedure Performed Yes -Type of Procedure Debridement -Clinical Debridement Subcutaneous -Post Debridement Size (cm) - Length 0.9 -Post Debridement Size (cm) - Width 0.3 -Post Debridement Size (cm) - Depth 0.2 -Total Square Cm 0.27 -Wound/Ulcer Outcome Not Healed -Ulcer Cleansing Rinsed/ Irrigated with Saline -Foul Odor after Cleansing No -Bioengineered Tissue No -Topical Lidocaine (%) 4 -Bleeding Controlled with Pressure -Treatment Response Procedure Tolerated Well #4 RIGHT GREAT TOE MEDIAL -Time 15:13 -Correct Patient Yes -Correct Side, Site, Position Yes -Correct Procedure Yes -Procedure Performed Yes -Type of Procedure Debridement -Clinical Debridement Subcutaneous -Post Debridement Size (cm) - Length 1.0 -Post Debridement Size (cm) - Width 0.8 -Post Debridement Size (cm) - Depth 0.2 -Total Square Cm 0.80 -Wound/Ulcer Outcome Not Healed -Ulcer Cleansing Rinsed/ Irrigated with Saline -Foul Odor after Cleansing No -Bioengineered Tissue No -Topical Lidocaine (%) 4 -Bleeding Controlled with Pressure -Treatment Response Procedure Tolerated Well #3 RIGHT FOOT PLANTAR -Time 15:14 -Correct Patient Yes -Correct Side, Site, Position Yes -Correct Procedure Yes -Procedure Performed Yes -Type of Procedure Debridement -Clinical Debridement Subcutaneous -Post Debridement Size (cm) - Length 4.5 -Post Debridement Size (cm) - Width 1.0 -Post Debridement Size (cm) - Depth 0.4 -Total Square Cm 4.50 -Wound/Ulcer Outcome Not Healed -Ulcer Cleansing Rinsed/ Irrigated with Saline -Foul Odor after Cleansing No -Bioengineered Tissue No -Topical Lidocaine (%) 4 -Bleeding Controlled with Pressure -Treatment Response Procedure Tolerated Well #2 LEFT DISTAL ANTERIOR -Time 15:14 -Correct Patient Yes -Correct Side, Site, Position Yes -Correct Procedure Yes -Procedure Performed Yes -Type of Procedure Debridement -Clinical Debridement Subcutaneous -Post Debridement Size (cm) - Length 3.1 -Post Debridement Size (cm) - Width 1.2 -Post Debridement Size (cm) - Depth 1.0 -Total Square Cm 3.72 -Wound/Ulcer Outcome Not Healed -Ulcer Cleansing Rinsed/ Irrigated with Saline -Foul Odor after Cleansing No -Bioengineered Tissue No -Topical Lidocaine (%) 4 -Bleeding Controlled with Pressure -Treatment Response Procedure Tolerated Well #1 LEFT PLANTAR -Time 15:15 -Correct Patient Yes -Correct Side, Site, Position Yes -Correct Procedure Yes -Procedure Performed Yes -Type of Procedure Debridement -Clinical Debridement Subcutaneous -Post Debridement Size (cm) - Length 1.7 -Post Debridement Size (cm) - Width 5.1 -Post Debridement Size (cm) - Depth 0.5 -Total Square Cm 8.67 -Wound/Ulcer Outcome Not Healed -Ulcer Cleansing Rinsed/ Irrigated with Saline -Foul Odor after Cleansing No -Bioengineered Tissue No -Topical Lidocaine (%) 4 -Bleeding Controlled with Pressure -Treatment Response Procedure Tolerated Well [See Physician Procedure note for Specifics] Pain Scale: 0-10 Numeric [Pain] -Is Patient Pain Free? Yes Musculoskeletal: No Tenderness to Palpation of Joints or Extremities, Muscle Wasting, - - Subtle dorsal contraction of lesser toes with prominent metatarsal heads bilateral Neurological: - - Lack of normal epicritic sensation to light touch consistent with some neuropathic changes Psych/Mental Status: Normal Affect, Appropriate Debridement Note Post-Debridement Measurements/Treatment WC - Nurse 2 - General Ulcer CM Notes Start: 03/20/18 13:54 Freq: Status: Active Protocol: Activity Type Activity Date Activity User E-Sign Co-Sign Detail Recorded Client Recorded Date Recorded By Document 03/21/18 15:13 [id number] 03/21/18 15:20 TM 03/21/18 15:13 Wound Center Nurse 2 #5 RIGHT ANTERIOR DISTAL FOOT -Time 15:13 -Correct Patient Yes -Correct Side, Site, Position Yes -Correct Procedure Yes -Procedure Performed Yes -Type of Procedure Debridement -Clinical Debridement Subcutaneous -Post Debridement Size (cm) - Length 0.9 -Post Debridement Size (cm) - Width 0.3 -Post Debridement Size (cm) - Depth 0.2 -Total Square Cm 0.27 -Wound/Ulcer Outcome Not Healed -Ulcer Cleansing Rinsed/ Irrigated with Saline -Foul Odor after Cleansing No -Bioengineered Tissue No -Topical Lidocaine (%) 4 -Bleeding Controlled with Pressure -Treatment Response Procedure Tolerated Well #4 RIGHT GREAT TOE MEDIAL -Time 15:13 -Correct Patient Yes -Correct Side, Site, Position Yes -Correct Procedure Yes -Procedure Performed Yes -Type of Procedure Debridement -Clinical Debridement Subcutaneous -Post Debridement Size (cm) - Length 1.0 -Post Debridement Size (cm) - Width 0.8 -Post Debridement Size (cm) - Depth 0.2 -Total Square Cm 0.80 -Wound/Ulcer Outcome Not Healed -Ulcer Cleansing Rinsed/ Irrigated with Saline -Foul Odor after Cleansing No -Bioengineered Tissue No -Topical Lidocaine (%) 4 -Bleeding Controlled with Pressure -Treatment Response Procedure Tolerated Well #3 RIGHT FOOT PLANTAR -Time 15:14 -Correct Patient Yes -Correct Side, Site, Position Yes -Correct Procedure Yes -Procedure Performed Yes -Type of Procedure Debridement -Clinical Debridement Subcutaneous -Post Debridement Size (cm) - Length 4.5 -Post Debridement Size (cm) - Width 1.0 -Post Debridement Size (cm) - Depth 0.4 -Total Square Cm 4.50 -Wound/Ulcer Outcome Not Healed -Ulcer Cleansing Rinsed/ Irrigated with Saline -Foul Odor after Cleansing No -Bioengineered Tissue No -Topical Lidocaine (%) 4 -Bleeding Controlled with Pressure -Treatment Response Procedure Tolerated Well #2 LEFT DISTAL ANTERIOR -Time 15:14 -Correct Patient Yes -Correct Side, Site, Position Yes -Correct Procedure Yes -Procedure Performed Yes -Type of Procedure Debridement -Clinical Debridement Subcutaneous -Post Debridement Size (cm) - Length 3.1 -Post Debridement Size (cm) - Width 1.2 -Post Debridement Size (cm) - Depth 1.0 -Total Square Cm 3.72 -Wound/Ulcer Outcome Not Healed -Ulcer Cleansing Rinsed/ Irrigated with Saline -Foul Odor after Cleansing No -Bioengineered Tissue No -Topical Lidocaine (%) 4 -Bleeding Controlled with Pressure -Treatment Response Procedure Tolerated Well #1 LEFT PLANTAR -Time 15:15 -Correct Patient Yes -Correct Side, Site, Position Yes -Correct Procedure Yes -Procedure Performed Yes -Type of Procedure Debridement -Clinical Debridement Subcutaneous -Post Debridement Size (cm) - Length 1.7 -Post Debridement Size (cm) - Width 5.1 -Post Debridement Size (cm) - Depth 0.5 -Total Square Cm 8.67 -Wound/Ulcer Outcome Not Healed -Ulcer Cleansing Rinsed/ Irrigated with Saline -Foul Odor after Cleansing No -Bioengineered Tissue No -Topical Lidocaine (%) 4 -Bleeding Controlled with Pressure -Treatment Response Procedure Tolerated Well Pain Scale: 0-10 Numeric Is Patient Pain Free? Yes Wound debrided: anterior Laterality: Right Wound Grade/Stage: grade 1 Type of Debridement: Excisional debridement Anesthesia Used: 4% Lidocaine Solution Depth: in the subcutaneous layer Percentage of wound debrided: 100 Instrument Used: #15 blade Tissue Removed: fibrous, devitalized subcutaneous, biofilm, slough Severity: Fat Layer Exposed Amount of bleeding with debridement: Mild Bleeding Controlled with: Pressure Patient tolerated procedure well - Additional Wound Wound debrided: plantar Laterality: Right Wound Grade/Stage: grade 2 Type of Debridement: Excisional debridement Anesthesia Used: 4% Lidocaine Solution Depth: in the subcutaneous layer Percentage of wound debrided: 100 Instrument Used: #15 blade Tissue Removed: fibrous, devitalized subcutaneous, biofilm, slough Severity: Fat Layer Exposed Amount of bleeding with debridement: Mild Bleeding Controlled with: Pressure Patient tolerated procedure: Patient tolerated procedure well - Additional Wound Wound debrided: great toe Laterality: Right Wound Grade/Stage: grade 1 Type of Debridement: Excisional debridement Anesthesia Used: 4% Lidocaine Solution Depth: in the subcutaneous layer Percentage of wound debrided: 100 Instrument Used: #15 blade Tissue Removed: fibrous, devitalized subcutaneous, biofilm, slough Severity: Fat Layer Exposed Amount of bleeding with debridement: Mild Bleeding Controlled with: Pressure Patient tolerated procedure: Patient tolerated procedure well - Additional Wound Wound debrided: distal Wound Grade/Stage: grade 1 Type of Debridement: Excisional debridement Anesthesia Used: 4% Lidocaine Solution Depth: in the subcutaneous layer Percentage of wound debrided: 100 Instrument Used: #15 blade Tissue Removed: fibrous, devitalized subcutaneous, biofilm, slough Severity: Fat Layer Exposed Amount of bleeding with debridement: Mild Bleeding Controlled with: Pressure Patient tolerated procedure: Patient tolerated procedure well - Additional Wound Wound debrided: plantar Laterality: Left Wound Grade/Stage: grade 2 Type of Debridement: Excisional debridement Anesthesia Used: 4% Lidocaine Solution Depth: in the subcutaneous layer Percentage of wound debrided: 100 Instrument Used: #15 blade Tissue Removed: fibrous, devitalized subcutaneous, biofilm, slough Severity: Fat Layer Exposed Amount of bleeding with debridement: Mild Bleeding Controlled with: Pressure Patient tolerated procedure: Patient tolerated procedure well Assessment/Plan Active Problems (Last Updated 03/17/18 @ 14:35 by Jocelyn Barlow) 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) Ulcer of right foot with necrosis of muscle (Chronic) Cellulitis (Acute) Assessment: see above diagnoses Plan: I reviewed and discussed her care plan today. Her recent surgical intervention was reviewed and she is previously known to me during hospital evaluation. A subcutaneous debridement was performed today. The patient tolerated the procedure well. The patients wound care will consist of: valorie to right and left foot ulcers. The wound VAC will be placed on hold at this time due to the increased moisture adjacent to the left medial arch location and will be re-continued once this dries out. She was advised to apply Betadine gauze to this site. Wound cultures were previously reviewed and patient remains adherant to her antibiotic regimen per infectious disease. Baseline bloodwork reviewed and most recent A1C 12.9, referral to PCP and endocrinology. Patient educated on the importance of diet on wound healing and instructed to increase protein and vitamin C intake. Patient educated on proper offloading mechanisms and will follow with podiatry per their recommendation. Patient verbalized understanding. Patient will follow up at wound healing center in one week or sooner if needed. Patient would benefit from homecare, however, she notes that her insurance will not cover this due to her age. I also recommend additional operating room debridement with application of advanced wound care products, amnio fill and epi cord. Prior authorization will be initiated. The indications, planned procedure, possible benefits, risk, complications, and anticipated healing time management were discussed in detail. She understands no guarantees are made. This will likely be staged procedures and the wound VAC can be applied at the same time. Answered her questions. To return to clinic in 1 week or call sooner if she has any questions or concerns.
[2018-03-24 13:56] VITALS: BP 133/73; PULSE 112; RESP 18; TEMP 36.6
[2018-03-29 13:16] VITALS: BP 159/90; PULSE 120; RESP 16; TEMP 37.3
--- NOTE | 2018-03-29 14:59 | PCM.WC.PN ---
(1) Chronic ulcer of left foot with fat layer exposed Status: Chronic Current Visit: Yes Code(s): L97.522 - Non-pressure chronic ulcer of other part of left foot with fat layer exposed (2) Chronic ulcer of left foot with necrosis of muscle Status: Chronic Current Visit: Yes Code(s): L97.523 - Non-pressure chronic ulcer of other part of left foot with necrosis of muscle (3) Ulcer of right foot with fat layer exposed Status: Chronic Current Visit: Yes Code(s): L97.512 - Non-pressure chronic ulcer of other part of right foot with fat layer exposed (4) Ulcer of right foot with necrosis of muscle Status: Chronic Current Visit: Yes Code(s): L97.513 - Non-pressure chronic ulcer of other part of right foot with necrosis of muscle (5) Type 2 diabetes mellitus with diabetic polyneuropathy Status: Chronic Current Visit: Yes Code(s): E11.42 - Type 2 diabetes mellitus with diabetic polyneuropathy (6) Cellulitis Status: Resolved Current Visit: Yes Qualifiers: Site of cellulitis of extremity: lower extremity Laterality: left Code(s): L03.90 - Cellulitis, unspecified Type of Wound Date of Service: 03/29/18 Chief Complaint: Nonhealing ulcers b/l feet History of Wound: This 28-year-old female with uncontrolled diabetes returns to clinic for follow-up of bilateral ulcers. 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 She continues with a wound VAC on the left foot and Valorie application to the right foot. She denies subjective fever, chill, nausea, vomiting. She reports her temperature today is 99 degrees and is concerned she has a low-grade fever. The blistering drainage and pain have decreased to the left foot and she did not apply the wound VAC last week as advised. She denies redness or odors. Progress of Wound: Stable - Physical Exam Vital Signs Temp Pulse Resp BP 99.1 F 120 H 16 159/90 H 03/29/18 13:16 03/29/18 13:16 03/29/18 13:16 03/29/18 13:16 General: Alert, Oriented x3, Cooperative Extremities: No cyanosis, Capillary Refill Less than 3 Seconds, No Calf Tenderness - Negative Chiquita and Rockwell sign bilateral, Diminished Peripheral Pulses, Edema - Bilateral lower extremities Skin: Ulcer/ Wound - No purulence, no erythema, streaking, no odor, no infection. Maceration and blistering has resolved to left foot. There is exposed tendon to the plantar left foot including the flexor hallucis longus that appears to be healthy and white, - - The peripheral skin is hairless and atrophic bilateral Wound Measurements and Assessment WC - Nurse 1 - General Ulcer Measurement Start: 03/20/18 13:54 Freq: Status: Active Protocol: Activity Type Activity Date Activity User E-Sign Co-Sign Detail Recorded Client Recorded Date Recorded By Document 03/29/18 13:16 [facility] [id number] 03/29/18 13:33 [facility] 03/29/18 13:16 Wound Center Nurse 1 [Ulcer Assessment] #5 RIGHT ANTERIOR DISTAL FOOT -Current Size (cm) - Length 0.7 -Current Size (cm) - Width 0.2 -Current Size (cm) - Depth 0.2 -Total Square Cm 0.14 -Photo Taken No -Tunneling No -Undermining/Tunneling No #4 RIGHT GREAT TOE MEDIAL -Combined with other wound No -Current Size (cm) - Length 1.0 -Current Size (cm) - Width 1.1 -Current Size (cm) - Depth 0.2 -Total Square Cm 1.10 -Photo Taken No -Maximum Distance #2 (cm) 0.2 -Circular Undermining Yes -Exudate Amt Small (1-33%) -Exudate Type Serous #3 RIGHT FOOT PLANTAR -Combined with other wound No -Current Size (cm) - Length 3.0 -Current Size (cm) - Width 1.9 -Current Size (cm) - Depth 1.1 -Total Square Cm 5.70 -Photo Taken No -Epithelialization None Present -Tunneling No -Undermining/Tunneling No -Circular Undermining No -Exudate Amt Small (1-33%) #2 LEFT Dorsal -Combined with other wound No -Current Size (cm) - Length 2.0 -Current Size (cm) - Width 0.8 -Current Size (cm) - Depth 0.2 -Total Square Cm 1.60 -Photo Taken No -Epithelialization None Present -Tunneling No -Undermining/Tunneling No -Circular Undermining No -Exudate Amt None Present (0 %) #1 LEFT PLANTAR -Combined with other wound No -Current Size (cm) - Length 9.9 -Current Size (cm) - Width 5.0 -Current Size (cm) - Depth 20.2 -Total Square Cm 49.50 -Photo Taken No -Epithelialization None Present -Tunneling No -Undermining/Tunneling No -Circular Undermining No -Exudate Amt None Present (0 %) -Wound Margin Distinct, Outline Attached -Granulation Amt None Present (0 %) -Slough/Fibrin Yes -Necrosis Amt Large (67-100%) -Necrotic Tissue Type Adherent Slough -Structure Exposed None/Limited to Skin Breakdown WC - Nurse 2 - General Ulcer CM Notes Start: 03/20/18 13:54 Freq: Status: Active Protocol: Activity Type Activity Date Activity User E-Sign Co-Sign Detail Recorded Client Recorded Date Recorded By Document 03/29/18 13:51 [facility] [id number] 03/29/18 13:57 [facility] 03/29/18 13:51 Wound Center Nurse 2 [Procedure/Treatment] #5 RIGHT ANTERIOR DISTAL FOOT -Time 13:51 -Correct Patient Yes -Correct Side, Site, Position Yes -Correct Procedure Yes -Procedure Performed Yes -Type of Procedure Debridement -Clinical Debridement Subcutaneous -Post Debridement Size (cm) - Length 0.8 -Post Debridement Size (cm) - Width 0.2 -Post Debridement Size (cm) - Depth 0.2 -Total Square Cm 0.16 -Wound/Ulcer Outcome Not Healed -Ulcer Cleansing Rinsed/ Irrigated with Saline -Foul Odor after Cleansing No -Bioengineered Tissue No -Bleeding Controlled with Pressure -Treatment Response Procedure Tolerated Well #4 RIGHT GREAT TOE MEDIAL -Time 13:52 -Correct Patient Yes -Correct Side, Site, Position Yes -Correct Procedure Yes -Procedure Performed Yes -Type of Procedure Debridement -Clinical Debridement Subcutaneous -Post Debridement Size (cm) - Length 1 -Post Debridement Size (cm) - Width 1.1 -Post Debridement Size (cm) - Depth 0.2 -Total Square Cm 1.1 -Wound/Ulcer Outcome Not Healed -Ulcer Cleansing Rinsed/ Irrigated with Saline -Foul Odor after Cleansing No -Bioengineered Tissue No -Bleeding Controlled with Pressure -Treatment Response Procedure Tolerated Well #3 RIGHT FOOT PLANTAR -Time 13:52 -Correct Patient Yes -Correct Side, Site, Position Yes -Correct Procedure Yes -Procedure Performed Yes -Type of Procedure Debridement -Clinical Debridement Subcutaneous -Post Debridement Size (cm) - Length 3.1 -Post Debridement Size (cm) - Width 2 -Post Debridement Size (cm) - Depth 1.1 -Total Square Cm 6.2 -Wound/Ulcer Outcome Not Healed -Ulcer Cleansing Rinsed/ Irrigated with Saline -Foul Odor after Cleansing No -Bioengineered Tissue No -Bleeding Controlled with Pressure -Treatment Response Procedure Tolerated Well #2 LEFT Dorsal -Time 13:53 -Correct Patient Yes -Correct Side, Site, Position Yes -Correct Procedure Yes -Procedure Performed Yes -Type of Procedure Debridement -Clinical Debridement Subcutaneous -Post Debridement Size (cm) - Length 2.1 -Post Debridement Size (cm) - Width 0.9 -Post Debridement Size (cm) - Depth 0.2 -Total Square Cm 1.89 -Wound/Ulcer Outcome Not Healed -Ulcer Cleansing Rinsed/ Irrigated with Saline -Foul Odor after Cleansing No -Bioengineered Tissue No -Bleeding Controlled with Pressure -Treatment Response Procedure Tolerated Well #1 LEFT PLANTAR -Time 13:55 -Correct Patient Yes -Correct Side, Site, Position Yes -Correct Procedure Yes -Procedure Performed Yes -Type of Procedure Debridement -Clinical Debridement Subcutaneous -Post Debridement Size (cm) - Length 10 -Post Debridement Size (cm) - Width 5.0 -Post Debridement Size (cm) - Depth 0.2 -Total Square Cm 50.0 -Wound/Ulcer Outcome Not Healed -Ulcer Cleansing Rinsed/ Irrigated with Saline -Foul Odor after Cleansing No -Bioengineered Tissue No -Bleeding Controlled with Pressure -Treatment Response Procedure Tolerated Well [See Physician Procedure note for Specifics] Pain Scale: 0-10 Numeric [Pain] -Is Patient Pain Free? Yes Musculoskeletal: No Tenderness to Palpation of Joints or Extremities, Muscle Wasting, - - Compartments soft bilateral lower extremities Neurological: - - Lack of epicritic sensation light touch bilateral lower extremities Psych/Mental Status: Normal Affect, Appropriate Debridement Note Post-Debridement Measurements/Treatment WC - Nurse 2 - General Ulcer CM Notes Start: 03/20/18 13:54 Freq: Status: Active Protocol: Activity Type Activity Date Activity User E-Sign Co-Sign Detail Recorded Client Recorded Date Recorded By Document 03/21/18 15:13 TM [id number] 03/21/18 15:20 TM Document 03/29/18 13:51 [id number] 03/29/18 13:57 JF 03/21/18 03/29/18 15:13 13:51 Wound Center Nurse 2 #5 RIGHT ANTERIOR DISTAL FOOT -Time 15:13 13:51 -Correct Patient Yes Yes -Correct Side, Site, Position Yes Yes -Correct Procedure Yes Yes -Procedure Performed Yes Yes -Type of Procedure Debridement Debridement -Clinical Debridement Subcutaneous Subcutaneous -Post Debridement Size (cm) - Length 0.9 0.8 -Post Debridement Size (cm) - Width 0.3 0.2 -Post Debridement Size (cm) - Depth 0.2 0.2 -Total Square Cm 0.27 0.16 -Wound/Ulcer Outcome Not Healed Not Healed -Ulcer Cleansing Rinsed/ Rinsed/ Irrigated with Irrigated with Saline Saline -Foul Odor after Cleansing No No -Bioengineered Tissue No No -Topical Lidocaine (%) 4 -Bleeding Controlled with Pressure Pressure -Treatment Response Procedure Procedure Tolerated Well Tolerated Well #4 RIGHT GREAT TOE MEDIAL -Time 15:13 13:52 -Correct Patient Yes Yes -Correct Side, Site, Position Yes Yes -Correct Procedure Yes Yes -Procedure Performed Yes Yes -Type of Procedure Debridement Debridement -Clinical Debridement Subcutaneous Subcutaneous -Post Debridement Size (cm) - Length 1.0 1 -Post Debridement Size (cm) - Width 0.8 1.1 -Post Debridement Size (cm) - Depth 0.2 0.2 -Total Square Cm 0.80 1.1 -Wound/Ulcer Outcome Not Healed Not Healed -Ulcer Cleansing Rinsed/ Rinsed/ Irrigated with Irrigated with Saline Saline -Foul Odor after Cleansing No No -Bioengineered Tissue No No -Topical Lidocaine (%) 4 -Bleeding Controlled with Pressure Pressure -Treatment Response Procedure Procedure Tolerated Well Tolerated Well #3 RIGHT FOOT PLANTAR -Time 15:14 13:52 -Correct Patient Yes Yes -Correct Side, Site, Position Yes Yes -Correct Procedure Yes Yes -Procedure Performed Yes Yes -Type of Procedure Debridement Debridement -Clinical Debridement Subcutaneous Subcutaneous -Post Debridement Size (cm) - Length 4.5 3.1 -Post Debridement Size (cm) - Width 1.0 2 -Post Debridement Size (cm) - Depth 0.4 1.1 -Total Square Cm 4.50 6.2 -Wound/Ulcer Outcome Not Healed Not Healed -Ulcer Cleansing Rinsed/ Rinsed/ Irrigated with Irrigated with Saline Saline -Foul Odor after Cleansing No No -Bioengineered Tissue No No -Topical Lidocaine (%) 4 -Bleeding Controlled with Pressure Pressure -Treatment Response Procedure Procedure Tolerated Well Tolerated Well #2 LEFT Dorsal -Time 15:14 13:53 -Correct Patient Yes Yes -Correct Side, Site, Position Yes Yes -Correct Procedure Yes Yes -Procedure Performed Yes Yes -Type of Procedure Debridement Debridement -Clinical Debridement Subcutaneous Subcutaneous -Post Debridement Size (cm) - Length 3.1 2.1 -Post Debridement Size (cm) - Width 1.2 0.9 -Post Debridement Size (cm) - Depth 1.0 0.2 -Total Square Cm 3.72 1.89 -Wound/Ulcer Outcome Not Healed Not Healed -Ulcer Cleansing Rinsed/ Rinsed/ Irrigated with Irrigated with Saline Saline -Foul Odor after Cleansing No No -Bioengineered Tissue No No -Topical Lidocaine (%) 4 -Bleeding Controlled with Pressure Pressure -Treatment Response Procedure Procedure Tolerated Well Tolerated Well #1 LEFT PLANTAR -Time 15:15 13:55 -Correct Patient Yes Yes -Correct Side, Site, Position Yes Yes -Correct Procedure Yes Yes -Procedure Performed Yes Yes -Type of Procedure Debridement Debridement -Clinical Debridement Subcutaneous Subcutaneous -Post Debridement Size (cm) - Length 1.7 10 -Post Debridement Size (cm) - Width 5.1 5.0 -Post Debridement Size (cm) - Depth 0.5 0.2 -Total Square Cm 8.67 50.0 -Wound/Ulcer Outcome Not Healed Not Healed -Ulcer Cleansing Rinsed/ Rinsed/ Irrigated with Irrigated with Saline Saline -Foul Odor after Cleansing No No -Bioengineered Tissue No No -Topical Lidocaine (%) 4 -Bleeding Controlled with Pressure Pressure -Treatment Response Procedure Procedure Tolerated Well Tolerated Well Pain Scale: 0-10 Numeric Is Patient Pain Free? Yes Yes Wound debrided: plantar foot Laterality: Left Wound Grade/Stage: grade 2 Type of Debridement: Excisional debridement Anesthesia Used: 4% Lidocaine Solution Depth: in the subcutaneous layer Percentage of wound debrided: 100 Instrument Used: #15 blade Tissue Removed: fibrous, devitalized subcutaneous, biofilm, slough Severity: Fat Layer Exposed Amount of bleeding with debridement: Mild Bleeding Controlled with: Pressure Patient tolerated procedure well - Additional Wound Wound debrided: dorsal forefoot Laterality: Left Wound Grade/Stage: grade 1 Type of Debridement: Excisional debridement Anesthesia Used: 4% Lidocaine Solution Depth: in the subcutaneous layer Percentage of wound debrided: 100 Instrument Used: #15 blade Tissue Removed: fibrous, devitalized subcutaneous, biofilm, slough Severity: Fat Layer Exposed Amount of bleeding with debridement: Mild Bleeding Controlled with: Pressure Patient tolerated procedure: Patient tolerated procedure well - Additional Wound Wound debrided: plantar foot Laterality: Right Wound Grade/Stage: grade 2 Type of Debridement: Excisional debridement Anesthesia Used: 4% Lidocaine Solution Depth: in the subcutaneous layer Percentage of wound debrided: 100 Instrument Used: #15 blade Tissue Removed: fibrous, devitalized subcutaneous, biofilm, slough Severity: Fat Layer Exposed Amount of bleeding with debridement: Mild Bleeding Controlled with: Pressure Patient tolerated procedure: Patient tolerated procedure well - Additional Wound Wound debrided: dorsal foot Laterality: Right Wound Grade/Stage: grade 1 Type of Debridement: Excisional debridement Anesthesia Used: 4% Lidocaine Solution Depth: in the subcutaneous layer Percentage of wound debrided: 100 Instrument Used: #15 blade Tissue Removed: fibrous, devitalized subcutaneous, biofilm, slough Severity: Fat Layer Exposed Amount of bleeding with debridement: Mild Bleeding Controlled with: Pressure Patient tolerated procedure: Patient tolerated procedure well - Additional Wound Wound debrided: plantar hallux Laterality: Right Wound Grade/Stage: grade 1 Type of Debridement: Excisional debridement Anesthesia Used: 4% Lidocaine Solution Depth: in the subcutaneous layer Percentage of wound debrided: 100 Instrument Used: #15 blade Tissue Removed: fibrous, devitalized subcutaneous, biofilm, slough Severity: Fat Layer Exposed Amount of bleeding with debridement: Mild Bleeding Controlled with: Pressure Patient tolerated procedure: Patient tolerated procedure well Assessment/Plan Active Problems (Last Updated 03/17/18 @ 14:35 by Jocelyn Barlow) Ulcer of right foot with fat layer exposed (Chronic) Chronic ulcer of left foot with fat layer exposed (Chronic) 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) Ulcer of right foot with necrosis of muscle (Chronic) Assessment: see above diagnoses Plan: I reviewed and discussed her care plan today. Her recent surgical intervention was reviewed and she is previously known to me during hospital evaluation. A subcutaneous debridement was performed today. The patient tolerated the procedure well. The patients wound care will consist of: valorie to right and left foot ulcers. The wound VAC will be resumed to the plantar left foot only; 150 mmHg continuous. Wound cultures were previously reviewed and patient remains adherant to her antibiotic regimen per infectious disease. Baseline bloodwork reviewed and most recent A1C 12.9, referral to PCP and endocrinology. Her temperature of 90 degrees is noted today and I do not appreciate any evidence of systemic or local infection. This will continue to be monitored. The patient was educated on the importance of diet on wound healing and instructed to increase protein and vitamin C intake. Patient educated on proper offloading mechanisms and will follow with podiatry per their recommendation. Patient verbalized understanding. Patient will follow up at wound healing center in one week or sooner if needed. Patient would benefit from homecare, however, she notes that her insurance will not cover this due to her age. I also recommend additional operating room debridement with application of advanced wound care products, amnio fill and epi cord. Prior authorization will be initiated. The indications, planned procedure, possible benefits, risk, complications, and anticipated healing time management were discussed in detail. She understands no guarantees are made. This will likely be staged procedures and the wound VAC can be applied at the same time. It is noted that she did already have a history and physical performed within the last 30 days during her last hospital admission. The anticipated anesthesia is MAC and local for this procedure. This is a planned same day surgery procedure. I answered her questions. To return to clinic in 1 week or call sooner if she has any questions or concerns.
[2018-03-31 13:42] VITALS: BP 131/72; PULSE 102; RESP 16; TEMP 36.2
[2018-04-03 12:57] VITALS: BP 138/76; PULSE 109; RESP 18; TEMP 36
[2018-04-05 13:09] VITALS: BP 137/87; PULSE 109; RESP 18; TEMP 37.7
--- NOTE | 2018-04-05 14:27 | PCM.WC.PN ---
(1) Chronic ulcer of left foot with fat layer exposed Status: Chronic Current Visit: Yes Code(s): L97.522 - Non-pressure chronic ulcer of other part of left foot with fat layer exposed (2) Chronic ulcer of left foot with necrosis of muscle Status: Chronic Current Visit: Yes Code(s): L97.523 - Non-pressure chronic ulcer of other part of left foot with necrosis of muscle (3) Ulcer of right foot with fat layer exposed Status: Chronic Current Visit: Yes Code(s): L97.512 - Non-pressure chronic ulcer of other part of right foot with fat layer exposed (4) Ulcer of right foot with necrosis of muscle Status: Chronic Current Visit: Yes Code(s): L97.513 - Non-pressure chronic ulcer of other part of right foot with necrosis of muscle (5) Type 2 diabetes mellitus with diabetic polyneuropathy Status: Chronic Current Visit: Yes Code(s): E11.42 - Type 2 diabetes mellitus with diabetic polyneuropathy (6) Cellulitis Status: Resolved Current Visit: Yes Qualifiers: Site of cellulitis of extremity: lower extremity Laterality: left Code(s): L03.90 - Cellulitis, unspecified Type of Wound Date of Service: 04/05/18 Chief Complaint: Nonhealing ulcers b/l feet History of Wound: This 28-year-old female with uncontrolled diabetes returns to clinic for follow-up of bilateral ulcers. 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 She continues with a wound VAC on the left foot and Valorie application to the right foot. She denies subjective fever, chill, nausea, vomiting. She is kept a wound VAC in place as advised. She denies new redness or odors. She is amendable to proceed with surgical intervention as scheduled for next Tuesday. Progress of Wound: Stable and improving - Physical Exam Vital Signs Temp Pulse Resp BP 99.8 F H 109 H 18 137/87 H 04/05/18 13:09 04/05/18 13:09 04/05/18 13:09 04/05/18 13:09 General: Alert, Oriented x3, Cooperative Extremities: No cyanosis, Capillary Refill Less than 3 Seconds, No Calf Tenderness - Negative Chiquita and Rockwell sign bilateral, Edema - Bilateral lower extremities, Peripheral Pulses Normal Skin: Ulcer/ Wound - No purulence, erythema, streaking, odor, infection, blistering. There is some periwound hyperpigmentation to the left foot with some skin peeling. There is no exposed bone or joints noted. There is some exposed tendon to the plantar aspect of the left foot. Wound Measurements and Assessment WC - Nurse 1 - General Ulcer Measurement Start: 03/20/18 13:54 Freq: Status: Active Protocol: Activity Type Activity Date Activity User E-Sign Co-Sign Detail Recorded Client Recorded Date Recorded By Document 04/03/18 12:57 JS [id number] 04/03/18 13:38 JS Document 04/05/18 13:09 DL [id number] 04/05/18 13:32 DL 04/03/18 04/05/18 12:57 13:09 Wound Center Nurse 1 [Ulcer Assessment] #5 RIGHT ANTERIOR DISTAL FOOT -Combined with other wound No -Current Size (cm) - Length 0.7 0.5 -Current Size (cm) - Width 0.2 0.1 -Current Size (cm) - Depth 0 0.1 -Total Square Cm 0.14 0.05 -Photo Taken No No -Epithelialization Medium 34-66% -Tunneling No -Undermining/Tunneling No -Circular Undermining No -Classification - Thickness Full Thickness without Exposed Support Structure -Exudate Amt None Present (0 None Present (0 %) %) -Wound Margin Distinct, Flat & Intact Outline Attached -Granulation Amt None Present (0 None Present (0 %) %) -Slough/Fibrin Yes -Necrosis Amt Small (1-33%) Small (1-33%) -Necrotic Tissue Type Eschar Adherent Slough -Structure Exposed Fat Layer N/A Exposed -Texture (Cheri-wound Skin Appearance) Assessed No Abnormality Scarring -Moisture (Cheri-wound Skin Appearance No Abnormality No Abnormality ) Assessed -Color (Cheri-wound Skin Appearance) No Abnormality No Abnormality Assessed -Temperature (Cheri-wound Skin No Abnormality No Abnormality Appearance) (Pt Warm) (Pt Warm) -Tenderness on Palpation (Cheri-wound Yes Skin Appearance) -Ulcer Cleansing Rinsed/ Wound Cleanser Irrigated with Saline -Foul Odor after Cleansing No -Anesthetic Used 4% Lidocaine Solution #4 RIGHT GREAT TOE MEDIAL -Combined with other wound No -Current Size (cm) - Length 1.0 0.9 -Current Size (cm) - Width 0.9 0.8 -Current Size (cm) - Depth 0.2 0.2 -Total Square Cm 0.90 0.72 -Photo Taken No No -Epithelialization None Present -Tunneling No -Undermining/Tunneling No -Circular Undermining No -Classification - Thickness Full Thickness without Exposed Support Structure -Exudate Amt Medium (34-66%) Small (1-33%) -Exudate Type Serosanguineous -Wound Margin Distinct, Thickened Outline Attached -Granulation Amt Small (1-33%) Large (67-100%) -Granulation Quality Red [place] -Slough/Fibrin Yes -Necrosis Amt Small (1-33%) Small (1-33%) -Necrotic Tissue Type Adherent Slough Adherent Slough -Structure Exposed Fat Layer N/A Exposed -Texture (Cheri-wound Skin Appearance) Assessed Callus Callus Scarring -Moisture (Cheri-wound Skin Appearance No Abnormality Dry/Scaly ) Assessed -Color (Cheri-wound Skin Appearance) No Abnormality No Abnormality Assessed -Temperature (Cheri-wound Skin No Abnormality No Abnormality Appearance) (Pt Warm) (Pt Warm) -Tenderness on Palpation (Cheri-wound No Skin Appearance) -Ulcer Cleansing Rinsed/ Wound Cleanser Irrigated with Saline -Foul Odor after Cleansing No -Anesthetic Used 4% Lidocaine Solution #3 RIGHT FOOT PLANTAR -Combined with other wound No -Current Size (cm) - Length 3.6 3.3 -Current Size (cm) - Width 1.2 1 -Current Size (cm) - Depth 1.6 0.7 -Total Square Cm 4.32 3.3 -Photo Taken No No -Epithelialization None Present -Tunneling No -Undermining/Tunneling No -Circular Undermining No -Classification - Thickness Full Thickness without Exposed Support Structure -Exudate Amt Small (1-33%) Small (1-33%) -Exudate Type Serosanguineous Serosanguineous -Wound Margin Distinct, Thickened Outline Attached -Granulation Amt Small (1-33%) Medium (34-66%) -Granulation Quality Pale [place] Red -Slough/Fibrin Yes -Necrosis Amt Small (1-33%) Medium (34-66%) -Necrotic Tissue Type Adherent Slough Adherent Slough -Structure Exposed Fat Layer N/A Exposed -Texture (Cheri-wound Skin Appearance) Assessed Callus Scarring Localized Edema Scarring -Moisture (Cheri-wound Skin Appearance No Abnormality Dry/Scaly ) Assessed -Color (Cheri-wound Skin Appearance) No Abnormality No Abnormality Assessed -Temperature (Cheri-wound Skin No Abnormality No Abnormality Appearance) (Pt Warm) (Pt Warm) -Tenderness on Palpation (Cheri-wound No No Skin Appearance) -Ulcer Cleansing Rinsed/ Wound Cleanser Irrigated with Saline -Foul Odor after Cleansing No -Anesthetic Used 4% Lidocaine Solution #2 LEFT Dorsal -Combined with other wound No -Current Size (cm) - Length 2.2 1 -Current Size (cm) - Width 0.7 0.3 -Current Size (cm) - Depth 0.2 0.2 -Total Square Cm 1.54 0.3 -Photo Taken No No -Epithelialization None Present -Tunneling No -Undermining/Tunneling No -Circular Undermining No -Classification - Thickness Full Thickness without Exposed Support Structure -Exudate Amt Medium (34-66%) Small (1-33%) -Exudate Type Serosanguineous Serosanguineous -Wound Margin Distinct, Distinct, Outline Outline Attached Attached -Granulation Amt None Present (0 Medium (34-66%) %) -Granulation Quality [place] -Slough/Fibrin Yes -Necrosis Amt Medium (34-66%) Medium (34-66%) -Necrotic Tissue Type Adherent Slough Adherent Slough -Structure Exposed Fat Layer N/A Exposed -Texture (Cheri-wound Skin Appearance) Assessed Scarring Scarring -Moisture (Cheri-wound Skin Appearance Assessed No Abnormality ) Dry/Scaly -Color (Cheri-wound Skin Appearance) No Abnormality No Abnormality Assessed -Temperature (Cheri-wound Skin No Abnormality No Abnormality Appearance) (Pt Warm) (Pt Warm) -Tenderness on Palpation (Cheri-wound No No Skin Appearance) -Ulcer Cleansing Rinsed/ Wound Cleanser Irrigated with Saline -Foul Odor after Cleansing No -Anesthetic Used 4% Lidocaine Solution #1 LEFT PLANTAR -Combined with other wound No -Current Size (cm) - Length 10.5 10 -Current Size (cm) - Width 5.4 5 -Current Size (cm) - Depth 0.2 0.2 -Total Square Cm 56.70 50 -Photo Taken No No -Epithelialization None Present -Tunneling No -Undermining/Tunneling No -Circular Undermining No -Classification - Thickness Full Thickness without Exposed Support Structure -Exudate Amt Large (67-100%) Large (67-100%) -Exudate Type Serosanguineous Serosanguineous -Wound Margin Distinct, Thickened Outline Attached -Granulation Amt Large (67-100%) Large (67-100%) -Granulation Quality Red Red -Slough/Fibrin Yes -Necrosis Amt Medium (34-66%) Small (1-33%) -Necrotic Tissue Type Adherent Slough Adherent Slough -Structure Exposed Tendon Tendon N/A -Texture (Cheri-wound Skin Appearance) Assessed Excoriation Scarring Localized Edema Scarring -Moisture (Cheri-wound Skin Appearance Assessed Maceration ) Maceration Weeping -Color (Cheri-wound Skin Appearance) No Abnormality No Abnormality Assessed -Temperature (Cheri-wound Skin No Abnormality No Abnormality Appearance) (Pt Warm) (Pt Warm) -Tenderness on Palpation (Cheri-wound No No Skin Appearance) -Ulcer Cleansing Rinsed/ Wound Cleanser Irrigated with Saline -Foul Odor after Cleansing No -Anesthetic Used 4% Lidocaine Solution [Edema Assessment] -Right Calf (cm) 35 -Right Ankle (cm) 22.2 -Left Calf (cm) 36 -Left Ankle (cm) 22.2 WC - Nurse 2 - General Ulcer CM Notes Start: 03/20/18 13:54 Freq: Status: Active Protocol: Activity Type Activity Date Activity User E-Sign Co-Sign Detail Recorded Client Recorded Date Recorded By Document 04/05/18 13:44 AMMON [id number] 04/05/18 13:47 AMMON 04/05/18 13:44 Wound Center Nurse 2 [Procedure/Treatment] #5 RIGHT ANTERIOR DISTAL FOOT -Correct Patient No -Correct Side, Site, Position No -Correct Procedure No -Procedure Performed No -Post Debridement Size (cm) - Length 0 -Post Debridement Size (cm) - Width 0 -Post Debridement Size (cm) - Depth 0 -Total Square Cm 0 -Wound/Ulcer Outcome Healed- Epithelialized #4 RIGHT GREAT TOE MEDIAL -Time 13:45 -Correct Patient Yes -Correct Side, Site, Position Yes -Correct Procedure Yes -Procedure Performed Yes -Type of Procedure Debridement -Clinical Debridement Subcutaneous -Post Debridement Size (cm) - Length 1 -Post Debridement Size (cm) - Width 0.8 -Post Debridement Size (cm) - Depth 0.2 -Total Square Cm 0.8 -Wound/Ulcer Outcome Not Healed -Ulcer Cleansing Rinsed/ Irrigated with Saline -Foul Odor after Cleansing No -Bioengineered Tissue No -Bleeding Controlled with Pressure -Treatment Response Procedure Tolerated Well #3 RIGHT FOOT PLANTAR -Time 13:46 -Correct Patient Yes -Correct Side, Site, Position Yes -Correct Procedure Yes -Procedure Performed Yes -Type of Procedure Debridement -Clinical Debridement Subcutaneous -Post Debridement Size (cm) - Length 3.4 -Post Debridement Size (cm) - Width 1 -Post Debridement Size (cm) - Depth 0.7 -Total Square Cm 3.4 -Wound/Ulcer Outcome Not Healed -Ulcer Cleansing Rinsed/ Irrigated with Saline -Foul Odor after Cleansing No -Bioengineered Tissue No -Bleeding Controlled with Pressure -Treatment Response Procedure Tolerated Well #2 LEFT Dorsal -Time 13:46 -Correct Patient Yes -Correct Side, Site, Position Yes -Correct Procedure Yes -Procedure Performed Yes -Type of Procedure Debridement -Clinical Debridement Subcutaneous -Post Debridement Size (cm) - Length 1.1 -Post Debridement Size (cm) - Width 0.3 -Post Debridement Size (cm) - Depth 0.2 -Total Square Cm 0.33 -Wound/Ulcer Outcome Not Healed -Ulcer Cleansing Rinsed/ Irrigated with Saline -Foul Odor after Cleansing No -Bioengineered Tissue No -Bleeding Controlled with Pressure -Treatment Response Procedure Tolerated Well #1 LEFT PLANTAR -Time 13:46 -Correct Patient Yes -Correct Side, Site, Position Yes -Correct Procedure Yes -Procedure Performed Yes -Type of Procedure Debridement -Clinical Debridement Subcutaneous -Post Debridement Size (cm) - Length 10 -Post Debridement Size (cm) - Width 5.1 -Post Debridement Size (cm) - Depth 0.2 -Total Square Cm 51.0 -Wound/Ulcer Outcome Not Healed -Ulcer Cleansing Rinsed/ Irrigated with Saline -Foul Odor after Cleansing No -Bioengineered Tissue No -Bleeding Controlled with Pressure -Treatment Response Procedure Tolerated Well [See Physician Procedure note for Specifics] Pain Scale: 0-10 Numeric [Pain] -Is Patient Pain Free? Yes Musculoskeletal: No Tenderness to Palpation of Joints or Extremities, Muscle Wasting, - - Compartments remain soft on palpation bilateral lower extremities Neurological: - - Lack of normal epicritic sensation light touch bilateral lower extremities consistent with neuropathy Psych/Mental Status: Normal Affect, Appropriate Debridement Note Post-Debridement Measurements/Treatment WC - Nurse 2 - General Ulcer CM Notes Start: 03/20/18 13:54 Freq: Status: Active Protocol: Activity Type Activity Date Activity User E-Sign Co-Sign Detail Recorded Client Recorded Date Recorded By Document 03/21/18 15:13 [id number] 03/21/18 15:20 Document 03/29/18 13:51 [id number] 03/29/18 13:57 Document 04/05/18 13:44 [id number] 04/05/18 13:47 03/21/18 03/29/18 04/05/18 15:13 13:51 13:44 Wound Center Nurse 2 #5 RIGHT ANTERIOR DISTAL FOOT -Time 15:13 13:51 -Correct Patient Yes Yes No -Correct Side, Site, Position Yes Yes No -Correct Procedure Yes Yes No -Procedure Performed Yes Yes No -Type of Procedure Debridement Debridement -Clinical Debridement Subcutaneous Subcutaneous -Post Debridement Size (cm) - Length 0.9 0.8 0 -Post Debridement Size (cm) - Width 0.3 0.2 0 -Post Debridement Size (cm) - Depth 0.2 0.2 0 -Total Square Cm 0.27 0.16 0 -Wound/Ulcer Outcome Not Healed Not Healed Healed- Epithelialized -Ulcer Cleansing Rinsed/ Rinsed/ Irrigated with Irrigated with Saline Saline -Foul Odor after Cleansing No No -Bioengineered Tissue No No -Topical Lidocaine (%) 4 -Bleeding Controlled with Pressure Pressure -Treatment Response Procedure Procedure Tolerated Well Tolerated Well #4 RIGHT GREAT TOE MEDIAL -Time 15:13 13:52 13:45 -Correct Patient Yes Yes Yes -Correct Side, Site, Position Yes Yes Yes -Correct Procedure Yes Yes Yes -Procedure Performed Yes Yes Yes -Type of Procedure Debridement Debridement Debridement -Clinical Debridement Subcutaneous Subcutaneous Subcutaneous -Post Debridement Size (cm) - Length 1.0 1 1 -Post Debridement Size (cm) - Width 0.8 1.1 0.8 -Post Debridement Size (cm) - Depth 0.2 0.2 0.2 -Total Square Cm 0.80 1.1 0.8 -Wound/Ulcer Outcome Not Healed Not Healed Not Healed -Ulcer Cleansing Rinsed/ Rinsed/ Rinsed/ Irrigated with Irrigated with Irrigated with Saline Saline Saline -Foul Odor after Cleansing No No No -Bioengineered Tissue No No No -Topical Lidocaine (%) 4 -Bleeding Controlled with Pressure Pressure Pressure -Treatment Response Procedure Procedure Procedure Tolerated Well Tolerated Well Tolerated Well #3 RIGHT FOOT PLANTAR -Time 15:14 13:52 13:46 -Correct Patient Yes Yes Yes -Correct Side, Site, Position Yes Yes Yes -Correct Procedure Yes Yes Yes -Procedure Performed Yes Yes Yes -Type of Procedure Debridement Debridement Debridement -Clinical Debridement Subcutaneous Subcutaneous Subcutaneous -Post Debridement Size (cm) - Length 4.5 3.1 3.4 -Post Debridement Size (cm) - Width 1.0 2 1 -Post Debridement Size (cm) - Depth 0.4 1.1 0.7 -Total Square Cm 4.50 6.2 3.4 -Wound/Ulcer Outcome Not Healed Not Healed Not Healed -Ulcer Cleansing Rinsed/ Rinsed/ Rinsed/ Irrigated with Irrigated with Irrigated with Saline Saline Saline -Foul Odor after Cleansing No No No -Bioengineered Tissue No No No -Topical Lidocaine (%) 4 -Bleeding Controlled with Pressure Pressure Pressure -Treatment Response Procedure Procedure Procedure Tolerated Well Tolerated Well Tolerated Well #2 LEFT Dorsal -Time 15:14 13:53 13:46 -Correct Patient Yes Yes Yes -Correct Side, Site, Position Yes Yes Yes -Correct Procedure Yes Yes Yes -Procedure Performed Yes Yes Yes -Type of Procedure Debridement Debridement Debridement -Clinical Debridement Subcutaneous Subcutaneous Subcutaneous -Post Debridement Size (cm) - Length 3.1 2.1 1.1 -Post Debridement Size (cm) - Width 1.2 0.9 0.3 -Post Debridement Size (cm) - Depth 1.0 0.2 0.2 -Total Square Cm 3.72 1.89 0.33 -Wound/Ulcer Outcome Not Healed Not Healed Not Healed -Ulcer Cleansing Rinsed/ Rinsed/ Rinsed/ Irrigated with Irrigated with Irrigated with Saline Saline Saline -Foul Odor after Cleansing No No No -Bioengineered Tissue No No No -Topical Lidocaine (%) 4 -Bleeding Controlled with Pressure Pressure Pressure -Treatment Response Procedure Procedure Procedure Tolerated Well Tolerated Well Tolerated Well #1 LEFT PLANTAR -Time 15:15 13:55 13:46 -Correct Patient Yes Yes Yes -Correct Side, Site, Position Yes Yes Yes -Correct Procedure Yes Yes Yes -Procedure Performed Yes Yes Yes -Type of Procedure Debridement Debridement Debridement -Clinical Debridement Subcutaneous Subcutaneous Subcutaneous -Post Debridement Size (cm) - Length 1.7 10 10 -Post Debridement Size (cm) - Width 5.1 5.0 5.1 -Post Debridement Size (cm) - Depth 0.5 0.2 0.2 -Total Square Cm 8.67 50.0 51.0 -Wound/Ulcer Outcome Not Healed Not Healed Not Healed -Ulcer Cleansing Rinsed/ Rinsed/ Rinsed/ Irrigated with Irrigated with Irrigated with Saline Saline Saline -Foul Odor after Cleansing No No No -Bioengineered Tissue No No No -Topical Lidocaine (%) 4 -Bleeding Controlled with Pressure Pressure Pressure -Treatment Response Procedure Procedure Procedure Tolerated Well Tolerated Well Tolerated Well Pain Scale: 0-10 Numeric Is Patient Pain Free? Yes Yes Yes Wound debrided: dorsal foot Laterality: Left Wound Grade/Stage: grade 1 Type of Debridement: Excisional debridement Anesthesia Used: 4% Lidocaine Solution Depth: in the subcutaneous layer Percentage of wound debrided: 100 Instrument Used: #15 blade Tissue Removed: fibrous, devitalized subcutaneous, biofilm, slough Severity: Fat Layer Exposed Amount of bleeding with debridement: Mild Bleeding Controlled with: Pressure Patient tolerated procedure well - Additional Wound Wound debrided: plantar foot Laterality: Right Wound Grade/Stage: grade 2 Type of Debridement: Excisional debridement Anesthesia Used: 4% Lidocaine Solution Depth: in the subcutaneous layer Percentage of wound debrided: 100 Instrument Used: #15 blade Tissue Removed: fibrous, devitalized subcutaneous, biofilm, slough Severity: Fat Layer Exposed Amount of bleeding with debridement: Mild Bleeding Controlled with: Pressure Patient tolerated procedure: Patient tolerated procedure well - Additional Wound Wound debrided: plantar foot Laterality: Left Wound Grade/Stage: grade 2 Type of Debridement: Excisional debridement Anesthesia Used: 4% Lidocaine Solution Depth: in the subcutaneous layer Percentage of wound debrided: 100 Instrument Used: #15 blade Tissue Removed: fibrous, devitalized subcutaneous, biofilm, slough Severity: Fat Layer Exposed Amount of bleeding with debridement: Mild Bleeding Controlled with: Pressure Patient tolerated procedure: Patient tolerated procedure well Assessment/Plan Active Problems (Last Reviewed 03/30/18 @ 15:05 by Jocelyn aBrlow) Ulcer of right foot with fat layer exposed (Chronic) Chronic ulcer of left foot with fat layer exposed (Chronic) 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) Ulcer of right foot with necrosis of muscle (Chronic) Assessment: see above diagnoses Plan: I reviewed and discussed her care plan today. Her recent surgical intervention was reviewed and she is previously known to me during hospital evaluation. A subcutaneous debridement was performed today. The patient tolerated the procedure well. The patients wound care will consist of: valorie to right and left foot ulcers. The wound VAC will be resumed to the plantar left foot only; 150 mmHg continuous. Wound cultures were previously reviewed and patient remains adherant to her antibiotic regimen per infectious disease. Baseline bloodwork reviewed and most recent A1C 12.9, referral to PCP and endocrinology. I do not appreciate any evidence of systemic or local infection. This will continue to be monitored. The patient was educated on the importance of diet on wound healing and instructed to increase protein and vitamin C intake. Patient educated on proper offloading mechanisms and will follow with podiatry per their recommendation. Patient verbalized understanding. Patient will follow up at wound healing center in one week or sooner if needed. Patient would benefit from homecare, however, she notes that her insurance will not cover this due to her age. I also recommend additional operating room debridement with application of advanced wound care products, amnio fill and epi cord. Prior authorization will be initiated. The indications, planned procedure, possible benefits, risk, complications, and anticipated healing time management were discussed in detail. She understands no guarantees are made. This will likely be staged procedures and the wound VAC can be applied at the same time. It is noted that she did already have a history and physical performed within the last 30 days during her last hospital admission. The anticipated anesthesia is MAC and local for this procedure. This is a planned same day surgery procedure. The surgical consents were signed today. She is tentatively scheduled for April 11, 2018 at 1:30 PM. I answered her questions. To return to clinic in 1 week or call sooner if she has any questions or concerns.
[2018-04-07 13:08] VITALS: BP 124/67; PULSE 107; RESP 18; TEMP 36.3
[2018-04-10 13:47] VITALS: BP 139/77; PULSE 115; RESP 18; TEMP 37.4
[2018-04-19 13:18] VITALS: BP 146/79; PULSE 110; RESP 16; TEMP 36.3
--- NOTE | 2018-04-19 15:03 | PN.PCM_ITS ---
(1) Chronic ulcer of left foot with fat layer exposed Status: Chronic Code(s): L97.522 - Non-pressure chronic ulcer of other part of left foot with fat layer exposed (2) Chronic ulcer of left foot with necrosis of muscle Status: Chronic Code(s): L97.523 - Non-pressure chronic ulcer of other part of left foot with necrosis of muscle (3) Ulcer of right foot with fat layer exposed Status: Chronic Code(s): L97.512 - Non-pressure chronic ulcer of other part of right foot with fat layer exposed (4) Ulcer of right foot with necrosis of muscle Status: Chronic Code(s): L97.513 - Non-pressure chronic ulcer of other part of right foot with necrosis of muscle (5) Type 2 diabetes mellitus with diabetic polyneuropathy Status: Chronic Code(s): E11.42 - Type 2 diabetes mellitus with diabetic polyneuropathy (6) Cellulitis Status: Resolved Qualifiers: Site of cellulitis of extremity: lower extremity Laterality: left Code(s): L03.90 - Cellulitis, unspecified Type of Wound Date of Service: 04/19/18 Chief Complaint: Nonhealing ulcers bilateral History of Wound: This 28-year-old female with uncontrolled diabetes who returns to clinic for follow-up of bilateral ulcers. She had a versa jet debridement with application of epi cord and amnio fill in the operating room. She denies subjective fever, chill, nausea, vomiting. She has kept a wound VAC in place as advised to the left foot. She denies new redness or odors. She admits she struggles to keep full weight especially while transferring to class and in and out of her vehicle. Progress of Wound: Stable - Physical Exam Vital Signs Temp Pulse Resp BP 97.3 F L 110 H 16 146/79 H 04/19/18 13:18 04/19/18 13:18 04/19/18 13:18 04/19/18 13:18 General: Alert, Oriented x3, Cooperative Extremities: No cyanosis, Capillary Refill Less than 3 Seconds, No Calf Tenderness - Negative Chiquita and [place] bilateral, Diminished Peripheral Pulses, Edema Skin: Ulcer/ Wound - No purulence, erythema, streaking, odor, or infection bilateral. The advanced wound care products remain intact with wound veil in place with sutures (adaptic). Some occasional displacement is noted and suggest she has placed weight on the sites. The peripheral skin is hairless and atrophic. Wound Measurements and Assessment - Nurse 1 - General Ulcer Measurement Start: 03/20/18 13:54 Freq: Status: Active Protocol: Activity Type Activity Date Activity User E-Sign Co-Sign Detail Recorded Client Recorded Date Recorded By Document 04/19/18 13:18 CS [id number] 04/19/18 13:20 04/19/18 13:18 Wound Center Nurse 1 [Edema Assessment] -Lower Limb Edema Present NA - Nurse 2 - General Ulcer CM Notes Start: 03/20/18 13:54 Freq: Status: Active Protocol: Activity Type Activity Date Activity User E-Sign Co-Sign Detail Recorded Client Recorded Date Recorded By Document 04/19/18 13:59 [id number] 04/19/18 14:02 04/19/18 13:59 Wound Center Nurse 2 [Procedure/Treatment] #4 RIGHT GREAT TOE MEDIAL -Correct Patient No -Correct Side, Site, Position No -Correct Procedure No -Procedure Performed No #3 RIGHT FOOT PLANTAR -Correct Patient No -Correct Side, Site, Position No -Correct Procedure No -Procedure Performed No #2 LEFT Dorsal -Correct Patient No -Correct Side, Site, Position No -Correct Procedure No -Procedure Performed No #1 LEFT PLANTAR -Correct Patient No -Correct Side, Site, Position No -Correct Procedure No -Procedure Performed No [See Physician Procedure note for Specifics] Pain Scale: 0-10 Numeric [Pain] -Is Patient Pain Free? Yes Musculoskeletal: No Tenderness to Palpation of Joints or Extremities, Muscle Wasting Neurological: - - Lack of epicritic sensation light touch bilateral lower extremities Psych/Mental Status: Normal Affect, Appropriate Debridement Note Post-Debridement Measurements/Treatment - Nurse 2 - General Ulcer CM Notes Start: 03/20/18 13:54 Freq: Status: Active Protocol: Activity Type Activity Date Activity User E-Sign Co-Sign Detail Recorded Client Recorded Date Recorded By Document 03/21/18 15:13 [id number] 03/21/18 15:20 Document 03/29/18 13:51 [id number] 03/29/18 13:57 JF Document 04/05/18 13:44 JF [id number] 04/05/18 13:47 Document 04/19/18 13:59 [id number] 04/19/18 14:02 JF 03/21/18 03/29/18 04/05/18 15:13 13:51 13:44 Wound Center Nurse 2 #5 RIGHT ANTERIOR DISTAL FOOT -Time 15:13 13:51 -Correct Patient Yes Yes No -Correct Side, Site, Position Yes Yes No -Correct Procedure Yes Yes No -Procedure Performed Yes Yes No -Type of Procedure Debridement Debridement -Clinical Debridement Subcutaneous Subcutaneous -Post Debridement Size (cm) - Length 0.9 0.8 0 -Post Debridement Size (cm) - Width 0.3 0.2 0 -Post Debridement Size (cm) - Depth 0.2 0.2 0 -Total Square Cm 0.27 0.16 0 -Wound/Ulcer Outcome Not Healed Not Healed Healed- Epithelialized -Ulcer Cleansing Rinsed/ Rinsed/ Irrigated with Irrigated with Saline Saline -Foul Odor after Cleansing No No -Bioengineered Tissue No No -Topical Lidocaine (%) 4 -Bleeding Controlled with Pressure Pressure -Treatment Response Procedure Procedure Tolerated Well Tolerated Well #4 RIGHT GREAT TOE MEDIAL -Time 15:13 13:52 13:45 -Correct Patient Yes Yes Yes -Correct Side, Site, Position Yes Yes Yes -Correct Procedure Yes Yes Yes -Procedure Performed Yes Yes Yes -Type of Procedure Debridement Debridement Debridement -Clinical Debridement Subcutaneous Subcutaneous Subcutaneous -Post Debridement Size (cm) - Length 1.0 1 1 -Post Debridement Size (cm) - Width 0.8 1.1 0.8 -Post Debridement Size (cm) - Depth 0.2 0.2 0.2 -Total Square Cm 0.80 1.1 0.8 -Wound/Ulcer Outcome Not Healed Not Healed Not Healed -Ulcer Cleansing Rinsed/ Rinsed/ Rinsed/ Irrigated with Irrigated with Irrigated with Saline Saline Saline -Foul Odor after Cleansing No No No -Bioengineered Tissue No No No -Topical Lidocaine (%) 4 -Bleeding Controlled with Pressure Pressure Pressure -Treatment Response Procedure Procedure Procedure Tolerated Well Tolerated Well Tolerated Well #3 RIGHT FOOT PLANTAR -Time 15:14 13:52 13:46 -Correct Patient Yes Yes Yes -Correct Side, Site, Position Yes Yes Yes -Correct Procedure Yes Yes Yes -Procedure Performed Yes Yes Yes -Type of Procedure Debridement Debridement Debridement -Clinical Debridement Subcutaneous Subcutaneous Subcutaneous -Post Debridement Size (cm) - Length 4.5 3.1 3.4 -Post Debridement Size (cm) - Width 1.0 2 1 -Post Debridement Size (cm) - Depth 0.4 1.1 0.7 -Total Square Cm 4.50 6.2 3.4 -Wound/Ulcer Outcome Not Healed Not Healed Not Healed -Ulcer Cleansing Rinsed/ Rinsed/ Rinsed/ Irrigated with Irrigated with Irrigated with Saline Saline Saline -Foul Odor after Cleansing No No No -Bioengineered Tissue No No No -Topical Lidocaine (%) 4 -Bleeding Controlled with Pressure Pressure Pressure -Treatment Response Procedure Procedure Procedure Tolerated Well Tolerated Well Tolerated Well #2 LEFT Dorsal -Time 15:14 13:53 13:46 -Correct Patient Yes Yes Yes -Correct Side, Site, Position Yes Yes Yes -Correct Procedure Yes Yes Yes -Procedure Performed Yes Yes Yes -Type of Procedure Debridement Debridement Debridement -Clinical Debridement Subcutaneous Subcutaneous Subcutaneous -Post Debridement Size (cm) - Length 3.1 2.1 1.1 -Post Debridement Size (cm) - Width 1.2 0.9 0.3 -Post Debridement Size (cm) - Depth 1.0 0.2 0.2 -Total Square Cm 3.72 1.89 0.33 -Wound/Ulcer Outcome Not Healed Not Healed Not Healed -Ulcer Cleansing Rinsed/ Rinsed/ Rinsed/ Irrigated with Irrigated with Irrigated with Saline Saline Saline -Foul Odor after Cleansing No No No -Bioengineered Tissue No No No -Topical Lidocaine (%) 4 -Bleeding Controlled with Pressure Pressure Pressure -Treatment Response Procedure Procedure Procedure Tolerated Well Tolerated Well Tolerated Well #1 LEFT PLANTAR -Time 15:15 13:55 13:46 -Correct Patient Yes Yes Yes -Correct Side, Site, Position Yes Yes Yes -Correct Procedure Yes Yes Yes -Procedure Performed Yes Yes Yes -Type of Procedure Debridement Debridement Debridement -Clinical Debridement Subcutaneous Subcutaneous Subcutaneous -Post Debridement Size (cm) - Length 1.7 10 10 -Post Debridement Size (cm) - Width 5.1 5.0 5.1 -Post Debridement Size (cm) - Depth 0.5 0.2 0.2 -Total Square Cm 8.67 50.0 51.0 -Wound/Ulcer Outcome Not Healed Not Healed Not Healed -Ulcer Cleansing Rinsed/ Rinsed/ Rinsed/ Irrigated with Irrigated with Irrigated with Saline Saline Saline -Foul Odor after Cleansing No No No -Bioengineered Tissue No No No -Topical Lidocaine (%) 4 -Bleeding Controlled with Pressure Pressure Pressure -Treatment Response Procedure Procedure Procedure Tolerated Well Tolerated Well Tolerated Well Pain Scale: 0-10 Numeric Is Patient Pain Free? Yes Yes Yes 04/19/18 13:59 Wound Center Nurse 2 #5 RIGHT ANTERIOR DISTAL FOOT -Time -Correct Patient -Correct Side, Site, Position -Correct Procedure -Procedure Performed -Type of Procedure -Clinical Debridement -Post Debridement Size (cm) - Length -Post Debridement Size (cm) - Width -Post Debridement Size (cm) - Depth -Total Square Cm -Wound/Ulcer Outcome -Ulcer Cleansing -Foul Odor after Cleansing -Bioengineered Tissue -Topical Lidocaine (%) -Bleeding Controlled with -Treatment Response #4 RIGHT GREAT TOE MEDIAL -Time -Correct Patient No -Correct Side, Site, Position No -Correct Procedure No -Procedure Performed No -Type of Procedure -Clinical Debridement -Post Debridement Size (cm) - Length -Post Debridement Size (cm) - Width -Post Debridement Size (cm) - Depth -Total Square Cm -Wound/Ulcer Outcome -Ulcer Cleansing -Foul Odor after Cleansing -Bioengineered Tissue -Topical Lidocaine (%) -Bleeding Controlled with -Treatment Response #3 RIGHT FOOT PLANTAR -Time -Correct Patient No -Correct Side, Site, Position No -Correct Procedure No -Procedure Performed No -Type of Procedure -Clinical Debridement -Post Debridement Size (cm) - Length -Post Debridement Size (cm) - Width -Post Debridement Size (cm) - Depth -Total Square Cm -Wound/Ulcer Outcome -Ulcer Cleansing -Foul Odor after Cleansing -Bioengineered Tissue -Topical Lidocaine (%) -Bleeding Controlled with -Treatment Response #2 LEFT Dorsal -Time -Correct Patient No -Correct Side, Site, Position No -Correct Procedure No -Procedure Performed No -Type of Procedure -Clinical Debridement -Post Debridement Size (cm) - Length -Post Debridement Size (cm) - Width -Post Debridement Size (cm) - Depth -Total Square Cm -Wound/Ulcer Outcome -Ulcer Cleansing -Foul Odor after Cleansing -Bioengineered Tissue -Topical Lidocaine (%) -Bleeding Controlled with -Treatment Response #1 LEFT PLANTAR -Time -Correct Patient No -Correct Side, Site, Position No -Correct Procedure No -Procedure Performed No -Type of Procedure -Clinical Debridement -Post Debridement Size (cm) - Length -Post Debridement Size (cm) - Width -Post Debridement Size (cm) - Depth -Total Square Cm -Wound/Ulcer Outcome -Ulcer Cleansing -Foul Odor after Cleansing -Bioengineered Tissue -Topical Lidocaine (%) -Bleeding Controlled with -Treatment Response Pain Scale: 0-10 Numeric Is Patient Pain Free? Yes No debridement was completed today - Debridement will be considered next week w ith additional application of advanced wound care product. Assessment/Plan Assessment: see above diagnoses Plan: I reviewed and discussed her care plan today. Her recent surgical intervention was reviewed . The advanced wound care product is still continuing to incorporate and and therefore debridement was not performed today. A new secondary dressing was applied. She can discontinue the wound VAC at this time. To keep the dressings clean, dry, and intact until follow-up next week. She is reassured no signs of local infection noted. The patient was educated on the importance of diet on wound healing and instructed to increase protein and vitamin C intake. Patient educated on proper offloading mechanisms and will follow with podiatry per their recommendation. Compliance was reiterated and is imperative for healing. Patient verbalized understanding. Patient will follow up at wound healing center in one week or sooner if needed. To return to the wound healing center 1 week or call sooner if she has any questions or concerns.
== END 2018-04-19 23:59 ==
LOC: WC 13:00
PROVIDERS: PCP Internal Medicine; Visit Provider Podiatrist
DX: E11.621 Type 2 diabetes mellitus with foot ulcer (principal); E11.42 Type 2 diabetes mellitus with diabetic polyneuropathy; L97.522 Non-pressure chronic ulcer of other part of left foot with fat layer exposed; L97.512 Non-pressure chronic ulcer of other part of right foot with fat layer exposed; E11.65 Type 2 diabetes mellitus with hyperglycemia
CPT/HCPCS: 11042; 11045; 97605; 97606; 99212; 99213; 99214; 99215; G0463

== ENCOUNTER 2018-05-17 13:00 | Outpatient (RCR) | payer OTHER, SELFPAY ==
[2018-04-20 01:47] VITALS: BP 146/79; PULSE 110; RESP 16; TEMP 36.3
[2018-04-26 13:19] VITALS: BP 138/82; PULSE 106; RESP 18; TEMP 36.8
--- NOTE | 2018-04-26 22:54 | PCM.WC.PN ---
(1) Ulcer of right foot with fat layer exposed Status: Chronic Current Visit: Yes Code(s): L97.512 - Non-pressure chronic ulcer of other part of right foot with fat layer exposed (2) Chronic ulcer of left foot with fat layer exposed Status: Chronic Current Visit: Yes Code(s): L97.522 - Non-pressure chronic ulcer of other part of left foot with fat layer exposed (3) Type 2 diabetes mellitus with diabetic polyneuropathy Status: Chronic Current Visit: Yes Code(s): E11.42 - Type 2 diabetes mellitus with diabetic polyneuropathy (4) Obesity (BMI 30.0-34.9) Status: Chronic Current Visit: Yes Code(s): E66.9 - Obesity, unspecified Type of Wound Date of Service: 04/26/18 Chief Complaint: Nonhealing ulcers b/l feet History of Wound: This 28-year-old female with uncontrolled diabetes returns to clinic for follow-up of bilateral ulcers. She denies subjective fever, chill, nausea, vomiting. She had advanced wound care products including amnio fill and epi cord that has incorporated well over the past 2 weeks. She has some emil-ulcer tenderness and denies redness or new odors to the left foot. She does have some inflammation to the dorsal aspect of the right foot and denies odor or increased drainage to the right foot. Progress of Wound: improving - Physical Exam Vital Signs Temp Pulse Resp BP 98.2 F 106 H 18 138/82 H 04/26/18 13:19 04/26/18 13:19 04/26/18 13:19 04/26/18 13:19 General: Alert, Oriented x3, Cooperative Extremities: No cyanosis, Capillary Refill Less than 3 Seconds, No Calf Tenderness, Diminished Peripheral Pulses, Edema Skin: Ulcer/ Wound - No purulence, no erythema, streaking, no odor, no infection. The plantar left foot no longer has exposed tendon in the wound bed has healthy granulation tissue with progressive peripheral epithelialization. Bilateral dorsal foot ulcer site remains healed with full epithelialization. The plantar right foot ulcer has continued deep probing to the metatarsal head region and there is no purulence on expression. There is some edema to the forefoot however this does not clinically appear infected. The peripheral skin is hairless and atrophic. Wound Measurements and Assessment WC - Nurse 1 - General Ulcer Measurement Start: 04/26/18 13:15 Freq: Status: Active Protocol: Activity Type Activity Date Activity User E-Sign Co-Sign Detail Recorded Client Recorded Date Recorded By Document 04/26/18 13:19 [id number] 04/26/18 13:22 CS 04/26/18 13:19 Wound Center Nurse 1 [Ulcer Assessment] #5 RIGHT ANTERIOR DISTAL FOOT -Combined with other wound No #4 RIGHT GREAT TOE MEDIAL -Combined with other wound No -Current Size (cm) - Length 0.3 -Current Size (cm) - Width 0.2 -Current Size (cm) - Depth 0.1 -Total Square Cm 0.06 -Photo Taken No -Epithelialization None Present -Tunneling No -Undermining/Tunneling No -Circular Undermining No -Necrotic Tissue Type Eschar -Texture (Emil-wound Skin Appearance) Callus #3 RIGHT FOOT PLANTAR -Combined with other wound No -Current Size (cm) - Length 2.2 -Current Size (cm) - Width 0.7 -Current Size (cm) - Depth 0.2 -Total Square Cm 1.54 -Photo Taken No -Epithelialization None Present -Tunneling No -Undermining/Tunneling No -Circular Undermining No -Wound Margin Thickened -Granulation Amt Medium (34-66%) -Granulation Quality [place] Red -Slough/Fibrin Yes -Necrosis Amt None Present (0 %) -Necrotic Tissue Type Adherent Slough -Structure Exposed None/Limited to Skin Breakdown -Texture (Emil-wound Skin Appearance) Scarring -Moisture (Emil-wound Skin Appearance Maceration ) -Color (Emil-wound Skin Appearance) No Abnormality Assessed -Temperature (Emil-wound Skin No Abnormality Appearance) (Pt Warm) -Tenderness on Palpation (Emil-wound No Skin Appearance) -Ulcer Cleansing Not Cleansed -Foul Odor after Cleansing Yes, Due to Product Use [Edema Assessment] -Lower Limb Edema Present NA - Nurse 2 - General Ulcer CM Notes Start: 04/26/18 13:15 Freq: Status: Active Protocol: Activity Type Activity Date Activity User E-Sign Co-Sign Detail Recorded Client Recorded Date Recorded By Document 04/26/18 13:47 [id number] 04/26/18 14:03 04/26/18 13:47 Wound Center Nurse 2 [Procedure/Treatment] #5 RIGHT ANTERIOR DISTAL FOOT -Correct Patient No -Correct Side, Site, Position No -Correct Procedure No -Procedure Performed No -Post Debridement Size (cm) - Length 0 -Post Debridement Size (cm) - Width 0 -Post Debridement Size (cm) - Depth 0 -Total Square Cm 0 -Wound/Ulcer Outcome Healed- Epithelialized #4 RIGHT GREAT TOE MEDIAL -Time 13:55 -Correct Patient Yes -Correct Side, Site, Position Yes -Correct Procedure Yes -Procedure Performed Yes -Type of Procedure Debridement -Clinical Debridement Subcutaneous -Post Debridement Size (cm) - Length 0.6 -Post Debridement Size (cm) - Width 0.5 -Post Debridement Size (cm) - Depth 0.1 -Total Square Cm 0.30 -Wound/Ulcer Outcome Not Healed -Ulcer Cleansing Rinsed/ Irrigated with Saline -Foul Odor after Cleansing No -Bioengineered Tissue No -Bleeding Controlled with Pressure -Treatment Response Procedure Tolerated Well #3 RIGHT FOOT PLANTAR -Time 13:49 -Correct Patient Yes -Correct Side, Site, Position Yes -Correct Procedure Yes -Procedure Performed Yes -Type of Procedure Debridement -Clinical Debridement Subcutaneous -Post Debridement Size (cm) - Length 2.3 -Post Debridement Size (cm) - Width 1.3 -Post Debridement Size (cm) - Depth 3.0 -Total Square Cm 2.99 -Wound/Ulcer Outcome Not Healed -Ulcer Cleansing Rinsed/ Irrigated with Saline -Foul Odor after Cleansing No -Bioengineered Tissue No -Bleeding Controlled with Pressure -Treatment Response Procedure Tolerated Well #2 LEFT Dorsal -Correct Patient No -Correct Side, Site, Position No -Correct Procedure No -Procedure Performed No -Post Debridement Size (cm) - Length 0 -Post Debridement Size (cm) - Width 0 -Post Debridement Size (cm) - Depth 0 -Total Square Cm 0 -Wound/Ulcer Outcome Healed- Epithelialized #1 LEFT PLANTAR -Time 13:48 -Correct Patient Yes -Correct Side, Site, Position Yes -Correct Procedure Yes -Procedure Performed Yes -Type of Procedure Debridement -Clinical Debridement Subcutaneous -Post Debridement Size (cm) - Length 8.8 -Post Debridement Size (cm) - Width 4.8 -Post Debridement Size (cm) - Depth 0.1 -Total Square Cm 42.24 -Wound/Ulcer Outcome Not Healed -Ulcer Cleansing Rinsed/ Irrigated with Saline -Foul Odor after Cleansing No -Bioengineered Tissue No -Bleeding Controlled with Pressure -Treatment Response Procedure Tolerated Well [See Physician Procedure note for Specifics] Pain Scale: 0-10 Numeric [Pain] -Is Patient Pain Free? Yes Musculoskeletal: No Tenderness to Palpation of Joints or Extremities, Muscle Wasting, - Neurological: - - Lack of normal epicritic sensation light touch bilateral lower extremities Psych/Mental Status: Normal Affect, Appropriate Debridement Note Post-Debridement Measurements/Treatment WC - Nurse 2 - General Ulcer CM Notes Start: 04/26/18 13:15 Freq: Status: Active Protocol: Activity Type Activity Date Activity User E-Sign Co-Sign Detail Recorded Client Recorded Date Recorded By Document 04/26/18 13:47 [id number] 04/26/18 14:03 04/26/18 13:47 Wound Center Nurse 2 #5 RIGHT ANTERIOR DISTAL FOOT -Correct Patient No -Correct Side, Site, Position No -Correct Procedure No -Procedure Performed No -Post Debridement Size (cm) - Length 0 -Post Debridement Size (cm) - Width 0 -Post Debridement Size (cm) - Depth 0 -Total Square Cm 0 -Wound/Ulcer Outcome Healed- Epithelialized #4 RIGHT GREAT TOE MEDIAL -Time 13:55 -Correct Patient Yes -Correct Side, Site, Position Yes -Correct Procedure Yes -Procedure Performed Yes -Type of Procedure Debridement -Clinical Debridement Subcutaneous -Post Debridement Size (cm) - Length 0.6 -Post Debridement Size (cm) - Width 0.5 -Post Debridement Size (cm) - Depth 0.1 -Total Square Cm 0.30 -Wound/Ulcer Outcome Not Healed -Ulcer Cleansing Rinsed/ Irrigated with Saline -Foul Odor after Cleansing No -Bioengineered Tissue No -Bleeding Controlled with Pressure -Treatment Response Procedure Tolerated Well #3 RIGHT FOOT PLANTAR -Time 13:49 -Correct Patient Yes -Correct Side, Site, Position Yes -Correct Procedure Yes -Procedure Performed Yes -Type of Procedure Debridement -Clinical Debridement Subcutaneous -Post Debridement Size (cm) - Length 2.3 -Post Debridement Size (cm) - Width 1.3 -Post Debridement Size (cm) - Depth 3.0 -Total Square Cm 2.99 -Wound/Ulcer Outcome Not Healed -Ulcer Cleansing Rinsed/ Irrigated with Saline -Foul Odor after Cleansing No -Bioengineered Tissue No -Bleeding Controlled with Pressure -Treatment Response Procedure Tolerated Well #2 LEFT Dorsal -Correct Patient No -Correct Side, Site, Position No -Correct Procedure No -Procedure Performed No -Post Debridement Size (cm) - Length 0 -Post Debridement Size (cm) - Width 0 -Post Debridement Size (cm) - Depth 0 -Total Square Cm 0 -Wound/Ulcer Outcome Healed- Epithelialized #1 LEFT PLANTAR -Time 13:48 -Correct Patient Yes -Correct Side, Site, Position Yes -Correct Procedure Yes -Procedure Performed Yes -Type of Procedure Debridement -Clinical Debridement Subcutaneous -Post Debridement Size (cm) - Length 8.8 -Post Debridement Size (cm) - Width 4.8 -Post Debridement Size (cm) - Depth 0.1 -Total Square Cm 42.24 -Wound/Ulcer Outcome Not Healed -Ulcer Cleansing Rinsed/ Irrigated with Saline -Foul Odor after Cleansing No -Bioengineered Tissue No -Bleeding Controlled with Pressure -Treatment Response Procedure Tolerated Well Pain Scale: 0-10 Numeric Is Patient Pain Free? Yes Wound debrided: sub metatarsal head Laterality: Right Wound Grade/Stage: grade 3 Type of Debridement: Excisional debridement Anesthesia Used: 4% Lidocaine Solution Depth: in the subcutaneous layer Percentage of wound debrided: 100 Instrument Used: #15 blade Tissue Removed: fibrous, devitalized subcutaneous, biofilm, slough, callous Severity: Fat Layer Exposed Amount of bleeding with debridement: Mild Bleeding Controlled with: Pressure Patient tolerated procedure well - Additional Wound Wound debrided: plantar medial Laterality: Left Wound Grade/Stage: grade 3 Type of Debridement: Excisional debridement Anesthesia Used: 4% Lidocaine Solution Depth: in the subcutaneous layer Percentage of wound debrided: 100 Instrument Used: #15 blade Tissue Removed: fibrous, devitalized subcutaneous, biofilm, slough Severity: Fat Layer Exposed Amount of bleeding with debridement: Mild Bleeding Controlled with: Pressure Patient tolerated procedure: Patient tolerated procedure well Assessment/Plan Active Problems (Last Reviewed 03/30/18 @ 15:05 by Jocelyn Barlow) Ulcer of right foot with fat layer exposed (Chronic) Chronic ulcer of left foot with fat layer exposed (Chronic) Type 2 diabetes mellitus with diabetic polyneuropathy (Chronic) Obesity (BMI 30.0-34.9) (Chronic) Assessment: see above diagnoses Plan: I reviewed and discussed her care plan today. Her recent surgical intervention was reviewed and she is previously known to me during hospital evaluation. A subcutaneous excisional debridement was performed today as noted in the clinical panel. The patient tolerated the procedure well. The patients wound care will consist of: valorie to right and left foot ulcers. The previous advanced wound care products have incorporated and well. I recommend she discontinue wound VAC application at this time. It is noted that her current ulcer site is a sequela of a previous grade 3 ulcer with infected tendon deep tissue bilateral foot. She was initially taken to the operating room for emergent debridement and has been undergoing a comprehensive wound healing regimen. Baseline bloodwork reviewed and most recent A1C 12.9, referral to PCP and endocrinology. I do not appreciate any evidence of systemic or local infection today. This will continue to be monitored. The patient was educated on the importance of diet on wound healing and instructed to increase protein and vitamin C intake. Patient educated on proper offloading mechanisms and will follow with podiatry per their recommendation. Compliance was discussed and it is noted she does have some sharing movement of her wound dressings with suggest that some pressure and friction is occurring. To use assistive devices. Patient verbalized understanding. Patient will follow up at wound healing center in one week or sooner if needed. Patient would benefit from homecare, however, she notes that her insurance will not cover this due to her age. I also recommend additional operating room debridement with application of advanced wound care products, amnio fill and epi cord as a staged and planned procedure. Prior authorization will be initiated. The indications, planned procedure, possible benefits, risk, complications, and anticipated healing time management were discussed in detail. She understands no guarantees are made. It is noted she is seeing her primary care physician tomorrow and if appropriate I recommend utilizing this history and physical exam to assist with surgical scheduling. Application of an outside facility will also be considered pending on prior authorization. She may also be a hyperbaric oxygen therapy candidate and we discussed the indications, benefits, risks, complications, anticipated healing time management. She would like to confirm availability with her class schedule and we will revisit this again next week. She understands clearance and additional diagnostic data will be obtained prior to proceeding. There is noted she did have hyperbaric oxygen therapy treatment and understands the process when she had an ulcer at a previous wound healing center. She did have a previous ear issue and did not return at that time; she is return clinically for hearing. I answered her questions. To return to clinic in 1 week or call sooner if she has any questions or concerns.
--- NOTE | 2018-05-01 13:32 | RAD_ITS ---
STUDY: X-RAY - RIGHT FOOT CLINICAL: Female, 28 years old. Pain TECHNIQUE: 3 view(s) of the foot. COMPARISON: None. FINDINGS: Normal talus, calcaneus, and tarsal bones. Normal visualized subtalar, talonavicular, calcaneocuboid, tarsal and tarsometatarsal articulations. Normal metatarsi. Normal metatarsophalangeal joint of the great toe. Normal tibial and fibular sesamoid bones. Normal interphalangeal joint of the great toe. Normal phalanges of the great toe. Normal second through fifth metatarsophalangeal joints. Normal interphalangeal joints and phalanges of the lesser toes. The soft tissue structures are unremarkable. RAD/Foot min 3 Views IMPRESSION: Normal x-ray examination of the foot. Electronically Signed: Delano Jules MD at 19:00 EST , Service support ,
[2018-05-03 13:07] VITALS: BP 136/69; PULSE 108; RESP 18; TEMP 36.2
--- NOTE | 2018-05-03 14:31 | PCM.WC.PN ---
(1) Cellulitis of right foot Status: Acute Current Visit: Yes Code(s): L03.115 - Cellulitis of right lower limb (2) Ulcer of right foot with fat layer exposed Status: Chronic Current Visit: Yes Code(s): L97.512 - Non-pressure chronic ulcer of other part of right foot with fat layer exposed (3) Chronic ulcer of left foot with fat layer exposed Status: Chronic Current Visit: Yes Code(s): L97.522 - Non-pressure chronic ulcer of other part of left foot with fat layer exposed (4) Type 2 diabetes mellitus with diabetic polyneuropathy Status: Chronic Current Visit: Yes Code(s): E11.42 - Type 2 diabetes mellitus with diabetic polyneuropathy (5) Obesity (BMI 30.0-34.9) Status: Chronic Current Visit: Yes Code(s): E66.9 - Obesity, unspecified Type of Wound Date of Service: 05/03/18 Chief Complaint: Nonhealing ulcers b/l feet History of Wound: This 28-year-old female with uncontrolled diabetes returns to clinic for follow-up of bilateral ulcers. She denies subjective fever, chill, nausea, vomiting. She had advanced wound care products including amnio fill and epi cord that has incorporated well. She does have some inflammation to the dorsal aspect of the right foot that has not resolved this past week, and denies odor or increased drainage to the right foot. Progress of Wound: improving left foot. Right foot worsening status - Physical Exam Vital Signs Temp Pulse Resp BP 97.1 F L 108 H 18 136/69 H 05/03/18 13:07 05/03/18 13:07 05/03/18 13:07 05/03/18 13:07 General: Alert, Oriented x3, Cooperative Extremities: No cyanosis, Capillary Refill Less than 3 Seconds, No Calf Tenderness - Negative Chiquita and Rockwell sign bilateral., Edema - Mild bilateral lower extremities, Peripheral Pulses Normal, Tenderness - Decreased tenderness to left foot ulcer manipulation Skin: Ulcer/ Wound - No purulence, odor, streaking. The left foot ulcer site is granular and fibrous in his some peripheral epithelialization; there is no longer any exposed tendon. The right foot has continued dorsal foot erythema with deeper probing from the plantar foot that communicates with the dorsal skin. There is some erythema inflammation over this interspace area there is no direct probing to bone. Wound Measurements and Assessment WC - Nurse 1 - General Ulcer Measurement Start: 04/26/18 13:15 Freq: Status: Active Protocol: Activity Type Activity Date Activity User E-Sign Co-Sign Detail Recorded Client Recorded Date Recorded By Document 05/03/18 13:07 AMMON [id number] 05/03/18 13:21 AMMON 05/03/18 13:07 Wound Center Nurse 1 [Ulcer Assessment] #4 RIGHT GREAT TOE MEDIAL -Combined with other wound No -Current Size (cm) - Length 0.1 -Current Size (cm) - Width 0.2 -Current Size (cm) - Depth 0.3 -Total Square Cm 0.02 -Photo Taken No -Epithelialization Small 1-33% -Tunneling No -Undermining/Tunneling No -Circular Undermining No -Exudate Amt Small (1-33%) -Exudate Type Serosanguineous -Wound Margin Flat & Intact -Granulation Amt Medium (34-66%) -Granulation Quality Red -Slough/Fibrin Yes -Necrosis Amt Small (1-33%) -Necrotic Tissue Type Adherent Slough -Structure Exposed N/A -Texture (Cheri-wound Skin Appearance) Assessed Callus -Moisture (Cheri-wound Skin Appearance Assessed ) Dry/Scaly -Color (Cheri-wound Skin Appearance) Assessed -Temperature (Cehri-wound Skin No Abnormality Appearance) (Pt Warm) -Tenderness on Palpation (Cheri-wound No Skin Appearance) -Ulcer Cleansing Wound Cleanser -Foul Odor after Cleansing No -Anesthetic Used 4% Lidocaine Solution #3 RIGHT FOOT PLANTAR -Combined with other wound No -Current Size (cm) - Length 8.4 -Current Size (cm) - Width 4.8 -Current Size (cm) - Depth 0.2 -Total Square Cm 40.32 -Photo Taken No -Epithelialization None Present -Tunneling No -Undermining/Tunneling No -Circular Undermining No -Exudate Amt Large (67-100%) -Exudate Type Serosanguineous -Wound Margin Flat & Intact -Granulation Amt Large (67-100%) -Granulation Quality Red -Slough/Fibrin Yes -Necrosis Amt Small (1-33%) -Necrotic Tissue Type Adherent Slough -Structure Exposed N/A -Texture (Cheri-wound Skin Appearance) Assessed Callus -Moisture (Cheri-wound Skin Appearance Assessed ) Dry/Scaly -Color (Cheri-wound Skin Appearance) Assessed -Temperature (Cheri-wound Skin No Abnormality Appearance) (Pt Warm) -Tenderness on Palpation (Cheri-wound No Skin Appearance) -Ulcer Cleansing Wound Cleanser -Foul Odor after Cleansing No -Anesthetic Used 4% Lidocaine Solution #1 LEFT PLANTAR -Combined with other wound No -Current Size (cm) - Length 2 -Current Size (cm) - Width 0.7 -Current Size (cm) - Depth 1.9 -Total Square Cm 1.4 -Photo Taken No -Epithelialization Small 1-33% -Tunneling No -Undermining/Tunneling No -Circular Undermining No -Exudate Amt Large (67-100%) -Exudate Type Serosanguineous -Wound Margin Flat & Intact -Granulation Amt Medium (34-66%) -Granulation Quality Red -Slough/Fibrin Yes -Necrosis Amt Small (1-33%) -Necrotic Tissue Type Adherent Slough -Structure Exposed N/A -Texture (Cheri-wound Skin Appearance) Assessed Callus Scarring -Moisture (Cheri-wound Skin Appearance Assessed ) Dry/Scaly -Color (Cheri-wound Skin Appearance) Assessed -Temperature (Cheri-wound Skin No Abnormality Appearance) (Pt Warm) -Tenderness on Palpation (Cheri-wound No Skin Appearance) -Ulcer Cleansing Wound Cleanser -Foul Odor after Cleansing No -Anesthetic Used 4% Lidocaine Solution [Edema Assessment] -Lower Limb Edema Present Yes -Right Calf (cm) 39.8 -Right Ankle (cm) 24.6 -Left Calf (cm) 39.8 -Left Ankle (cm) 23.8 WC - Nurse 2 - General Ulcer CM Notes Start: 04/26/18 13:15 Freq: Status: Active Protocol: Activity Type Activity Date Activity User E-Sign Co-Sign Detail Recorded Client Recorded Date Recorded By Document 05/03/18 13:38 [id number] 05/03/18 13:56 05/03/18 13:38 Wound Center Nurse 2 [Procedure/Treatment] #4 RIGHT GREAT TOE MEDIAL -Time 13:53 -Correct Patient Yes -Correct Side, Site, Position Yes -Correct Procedure Yes -Procedure Performed Yes -Type of Procedure Debridement -Clinical Debridement Subcutaneous -Post Debridement Size (cm) - Length 0.2 -Post Debridement Size (cm) - Width 0.3 -Post Debridement Size (cm) - Depth 0.3 -Total Square Cm 0.06 -Wound/Ulcer Outcome Not Healed -Ulcer Cleansing Rinsed/ Irrigated with Saline -Foul Odor after Cleansing No -Bioengineered Tissue No -Topical Lidocaine (%) 4 -Bleeding Controlled with Pressure -Treatment Response Procedure Tolerated Well #3 RIGHT FOOT PLANTAR -Time 13:54 -Correct Patient Yes -Correct Side, Site, Position Yes -Correct Procedure Yes -Procedure Performed Yes -Type of Procedure Debridement -Clinical Debridement Subcutaneous -Post Debridement Size (cm) - Length 8.5 -Post Debridement Size (cm) - Width 4.9 -Post Debridement Size (cm) - Depth 3.1 -Total Square Cm 41.65 -Wound/Ulcer Outcome Not Healed -Ulcer Cleansing Rinsed/ Irrigated with Saline -Foul Odor after Cleansing No -Bioengineered Tissue No -Topical Lidocaine (%) 4 -Bleeding Controlled with Pressure -Treatment Response Procedure Tolerated Well #1 LEFT PLANTAR -Time 13:55 -Correct Patient Yes -Correct Side, Site, Position Yes -Correct Procedure Yes -Procedure Performed Yes -Type of Procedure Debridement -Clinical Debridement Subcutaneous -Post Debridement Size (cm) - Length 2.1 -Post Debridement Size (cm) - Width 0.8 -Post Debridement Size (cm) - Depth 1.9 -Total Square Cm 1.68 -Wound/Ulcer Outcome Not Healed -Ulcer Cleansing Rinsed/ Irrigated with Saline -Foul Odor after Cleansing No -Bioengineered Tissue No -Topical Lidocaine (%) 4 -Bleeding Controlled with Pressure -Treatment Response Procedure Tolerated Well [See Physician Procedure note for Specifics] Pain Scale: 0-10 Numeric [Pain] -Is Patient Pain Free? Yes Musculoskeletal: No Tenderness to Palpation of Joints or Extremities, Muscle Wasting Neurological: - - Lack of epicritic sensation to light touch consistent with neuropathy Psych/Mental Status: Normal Affect, Appropriate Debridement Note Post-Debridement Measurements/Treatment WC - Nurse 2 - General Ulcer CM Notes Start: 04/26/18 13:15 Freq: Status: Active Protocol: Activity Type Activity Date Activity User E-Sign Co-Sign Detail Recorded Client Recorded Date Recorded By Document 04/26/18 13:47 [id number] 04/26/18 14:03 Document 05/03/18 13:38 TM [id number] 05/03/18 13:56 04/26/18 05/03/18 13:47 13:38 Wound Center Nurse 2 #5 RIGHT ANTERIOR DISTAL FOOT -Correct Patient No -Correct Side, Site, Position No -Correct Procedure No -Procedure Performed No -Post Debridement Size (cm) - Length 0 -Post Debridement Size (cm) - Width 0 -Post Debridement Size (cm) - Depth 0 -Total Square Cm 0 -Wound/Ulcer Outcome Healed- Epithelialized #4 RIGHT GREAT TOE MEDIAL -Time 13:55 13:53 -Correct Patient Yes Yes -Correct Side, Site, Position Yes Yes -Correct Procedure Yes Yes -Procedure Performed Yes Yes -Type of Procedure Debridement Debridement -Clinical Debridement Subcutaneous Subcutaneous -Post Debridement Size (cm) - Length 0.6 0.2 -Post Debridement Size (cm) - Width 0.5 0.3 -Post Debridement Size (cm) - Depth 0.1 0.3 -Total Square Cm 0.30 0.06 -Wound/Ulcer Outcome Not Healed Not Healed -Ulcer Cleansing Rinsed/ Rinsed/ Irrigated with Irrigated with Saline Saline -Foul Odor after Cleansing No No -Bioengineered Tissue No No -Topical Lidocaine (%) 4 -Bleeding Controlled with Pressure Pressure -Treatment Response Procedure Procedure Tolerated Well Tolerated Well #3 RIGHT FOOT PLANTAR -Time 13:49 13:54 -Correct Patient Yes Yes -Correct Side, Site, Position Yes Yes -Correct Procedure Yes Yes -Procedure Performed Yes Yes -Type of Procedure Debridement Debridement -Clinical Debridement Subcutaneous Subcutaneous -Post Debridement Size (cm) - Length 2.3 8.5 -Post Debridement Size (cm) - Width 1.3 4.9 -Post Debridement Size (cm) - Depth 3.0 3.1 -Total Square Cm 2.99 41.65 -Wound/Ulcer Outcome Not Healed Not Healed -Ulcer Cleansing Rinsed/ Rinsed/ Irrigated with Irrigated with Saline Saline -Foul Odor after Cleansing No No -Bioengineered Tissue No No -Topical Lidocaine (%) 4 -Bleeding Controlled with Pressure Pressure -Treatment Response Procedure Procedure Tolerated Well Tolerated Well #2 LEFT Dorsal -Correct Patient No -Correct Side, Site, Position No -Correct Procedure No -Procedure Performed No -Post Debridement Size (cm) - Length 0 -Post Debridement Size (cm) - Width 0 -Post Debridement Size (cm) - Depth 0 -Total Square Cm 0 -Wound/Ulcer Outcome Healed- Epithelialized #1 LEFT PLANTAR -Time 13:48 13:55 -Correct Patient Yes Yes -Correct Side, Site, Position Yes Yes -Correct Procedure Yes Yes -Procedure Performed Yes Yes -Type of Procedure Debridement Debridement -Clinical Debridement Subcutaneous Subcutaneous -Post Debridement Size (cm) - Length 8.8 2.1 -Post Debridement Size (cm) - Width 4.8 0.8 -Post Debridement Size (cm) - Depth 0.1 1.9 -Total Square Cm 42.24 1.68 -Wound/Ulcer Outcome Not Healed Not Healed -Ulcer Cleansing Rinsed/ Rinsed/ Irrigated with Irrigated with Saline Saline -Foul Odor after Cleansing No No -Bioengineered Tissue No No -Topical Lidocaine (%) 4 -Bleeding Controlled with Pressure Pressure -Treatment Response Procedure Procedure Tolerated Well Tolerated Well Pain Scale: 0-10 Numeric Is Patient Pain Free? Yes Yes Wound debrided: plantar foot Laterality: Right Wound Grade/Stage: grade 3 Type of Debridement: Excisional debridement Anesthesia Used: 4% Lidocaine Solution Depth: in the subcutaneous layer Percentage of wound debrided: 100 Instrument Used: #15 blade Tissue Removed: fibrous, devitalized subcutaneous, biofilm, slough Severity: Fat Layer Exposed Amount of bleeding with debridement: Mild Bleeding Controlled with: Pressure Patient tolerated procedure well - Additional Wound Wound debrided: plantar hallux Laterality: Right Wound Grade/Stage: grade 1 Type of Debridement: Excisional debridement Anesthesia Used: 4% Lidocaine Solution Depth: in the subcutaneous layer Percentage of wound debrided: 100 Instrument Used: #15 blade Tissue Removed: fibrous, devitalized subcutaneous, biofilm, slough Severity: Fat Layer Exposed Amount of bleeding with debridement: Mild Bleeding Controlled with: Pressure Patient tolerated procedure: Patient tolerated procedure well - Additional Wound Wound debrided: plantar foot Laterality: Left Wound Grade/Stage: grade 3 Type of Debridement: Excisional debridement Anesthesia Used: 4% Lidocaine Solution Depth: in the subcutaneous layer Percentage of wound debrided: 100 Instrument Used: #15 blade Tissue Removed: fibrous, devitalized subcutaneous, biofilm, slough Severity: Fat Layer Exposed Amount of bleeding with debridement: Mild Bleeding Controlled with: Pressure Patient tolerated procedure: Patient tolerated procedure well Assessment/Plan Clinical Impression(s) from Imaging Studies Foot X-Ray 05/01/18 13:32 IMPRESSION: Normal x-ray examination of the foot. Electronically Signed: Delano Jules MD at 19:00 EST , Service support , Active Problems (Last Reviewed 03/30/18 @ 15:05 by Jocelyn Barlow) Ulcer of right foot with fat layer exposed (Chronic) Chronic ulcer of left foot with fat layer exposed (Chronic) Cellulitis of right foot (Acute) Type 2 diabetes mellitus with diabetic polyneuropathy (Chronic) Obesity (BMI 30.0-34.9) (Chronic) Assessment: see above diagnoses Plan: I reviewed and discussed her care plan today. A subcutaneous excisional debridement was performed today as noted in the clinical pane to bilateral foot. The patient tolerated the procedure well. The previous advanced wound care products have incorporated and well. I recommend change in left foot dressing daily with typical in the right foot dressing with new gauze deep packing to the submetatarsal head ulcer site and Fibracol to the right hallux site. It is noted that her current ulcer site is a sequela of a previous grade 3 ulcer with infected tendon deep tissue bilateral foot. She was initially taken to the operating room for emergent debridement and has been undergoing a comprehensive wound healing regimen. Baseline bloodwork reviewed and most recent A1C 12.9, referral to PCP and endocrinology. I am concerned for inflammation erythema continues to the right foot and have ordered labs to start her workup for infection. She was started on antibiotics of doxycycline and Augmentin for 10 days. Her x-rays from last week were reviewed without evidence of osseous destruction, soft tissue emphysema or foreign body or other acute injuries. The patient was educated on the importance of diet on wound healing and instructed to increase protein and vitamin C intake. Patient educated on proper offloading mechanisms and will follow with podiatry per their recommendation. Compliance was discussed and it is noted she does have some sharing movement of her wound dressings with suggest that some pressure and friction is occurring. To use assistive devices. Patient verbalized understanding. Patient will follow up at wound healing center in one week or sooner if needed. Patient would benefit from homecare, however, she notes that her insurance will not cover this due to her age. A new insurance company will be pursued at this time called [employer]. I also recommend additional operating room debridement with application of advanced wound care products, amnio fill and epi cord as a staged and planned procedure pending her continued response to her recently apply antibiotic. She may also be a hyperbaric oxygen therapy candidate and we discussed the indications, benefits, risks, complications, anticipated healing time management. She would like to confirm availability with her class schedule and we will revisit this again next week. She understands clearance and additional diagnostic data will be obtained prior to proceeding. There is noted she did have hyperbaric oxygen therapy treatment and understands the process when she had an ulcer at a previous wound healing center. She did have a previous ear issue and did not return at that time; she is return clinically for hearing. I answered her questions. To return to clinic in 1 week or call sooner if she has any questions or concerns.
[2018-05-03 17:08] LABS: M R Staph aureus DNA By PCR Negative (Negative); Probe Check PASS; Specimen Processing Control PASS; Staph aureus DNA By PCR POSITIVE (Negative)
[2018-05-10 13:11] VITALS: BP 138/77; PULSE 114; RESP 20; TEMP 36.3
--- NOTE | 2018-05-10 14:34 | PN.PCM_ITS ---
(1) Chronic ulcer of left foot with fat layer exposed Status: Chronic Code(s): L97.522 - Non-pressure chronic ulcer of other part of left foot with fat layer exposed (2) Ulcer of right foot with fat layer exposed Status: Chronic Code(s): L97.512 - Non-pressure chronic ulcer of other part of right foot with fat layer exposed (3) Cellulitis of right foot Status: Resolved Code(s): L03.115 - Cellulitis of right lower limb (4) Type 2 diabetes mellitus with diabetic polyneuropathy Status: Chronic Code(s): E11.42 - Type 2 diabetes mellitus with diabetic polyneuropathy (5) Obesity (BMI 30.0-34.9) Status: Chronic Code(s): E66.9 - Obesity, unspecified Type of Wound Date of Service: 05/10/18 Chief Complaint: Nonhealing ulcers b/l feet History of Wound: This 28-year-old female with uncontrolled diabetes returns to clinic for follow-up of bilateral ulcers. She denies subjective fever, chill, nausea, vomiting. She has been packing her right foot ulcer site as advised. She continues on antibiotics and has reduced redness and inflammation to the right foot. Progress of Wound: improving bilateral - Physical Exam Vital Signs Temp Pulse Resp BP 97.4 F L 114 H 20 H 138/77 H 05/10/18 13:11 05/10/18 13:11 05/10/18 13:11 05/10/18 13:11 General: Alert, Oriented x3, Cooperative Extremities: No cyanosis, Capillary Refill Less than 3 Seconds, No Calf Tenderness - Negative Chiquita and Rockwell sign bilateral, Edema, Peripheral Pulses Normal Skin: Ulcer/ Wound - No purulence, erythema, odor, streaking, redness deep necrosis or infection bilateral lower extremities, - - No fluctuance or bogginess on palpation bilateral Wound Measurements and Assessment WC - Nurse 1 - General Ulcer Measurement Start: 04/26/18 13:15 Freq: Status: Active Protocol: Activity Type Activity Date Activity User E-Sign Co-Sign Detail Recorded Client Recorded Date Recorded By Document 05/10/18 13:11 DL [id number] 05/10/18 13:25 DL 05/10/18 13:11 Wound Center Nurse 1 [Ulcer Assessment] #4 RIGHT GREAT TOE MEDIAL -Current Size (cm) - Length 0.5 -Current Size (cm) - Width 0.4 -Current Size (cm) - Depth 0.4 -Total Square Cm 0.20 -Photo Taken Yes -Exudate Amt None Present (0 %) -Exudate Type Serosanguineous -Wound Margin Thickened -Granulation Amt Small (1-33%) -Granulation Quality Red -Necrosis Amt Small (1-33%) -Necrotic Tissue Type Adherent Slough -Structure Exposed N/A -Texture (Cheri-wound Skin Appearance) Callus Scarring -Moisture (Cheri-wound Skin Appearance Dry/Scaly ) -Color (Cheri-wound Skin Appearance) No Abnormality -Temperature (Cheri-wound Skin No Abnormality Appearance) (Pt Warm) -Tenderness on Palpation (Cheri-wound No Skin Appearance) -Ulcer Cleansing Wound Cleanser -Foul Odor after Cleansing No -Anesthetic Used 4% Lidocaine Solution #3 RIGHT FOOT PLANTAR -Current Size (cm) - Length 1.6 -Current Size (cm) - Width 0.7 -Current Size (cm) - Depth 0.5 -Total Square Cm 1.12 -Photo Taken Yes -Undermining/Tunneling Starts (O' 12 clock) -Undermining/Tunneling Ends (O'clock) 1 -Maximum Distance (cm) 0.3 -Circular Undermining No -Exudate Amt Small (1-33%) -Exudate Type Serosanguineous -Wound Margin Distinct, Outline Attached -Granulation Amt Large (67-100%) -Granulation Quality Pale [place] -Necrosis Amt Small (1-33%) -Necrotic Tissue Type Adherent Slough -Structure Exposed N/A -Texture (Cheri-wound Skin Appearance) Callus Scarring -Moisture (Cheri-wound Skin Appearance No Abnormality ) -Color (Cheri-wound Skin Appearance) No Abnormality -Temperature (Cheri-wound Skin No Abnormality Appearance) (Pt Warm) -Tenderness on Palpation (Cheri-wound No Skin Appearance) -Ulcer Cleansing Wound Cleanser -Foul Odor after Cleansing No -Anesthetic Used 4% Lidocaine Solution #1 LEFT PLANTAR -Current Size (cm) - Length 7.8 -Current Size (cm) - Width 3.4 -Current Size (cm) - Depth 0.1 -Total Square Cm 26.52 -Photo Taken Yes -Exudate Amt Medium (34-66%) -Exudate Type Serosanguineous -Wound Margin Distinct, Outline Attached -Granulation Amt Medium (34-66%) -Granulation Quality [place] Red -Necrosis Amt Medium (34-66%) -Necrotic Tissue Type Adherent Slough -Structure Exposed N/A -Texture (Cheri-wound Skin Appearance) Callus Scarring -Moisture (Cheri-wound Skin Appearance Dry/Scaly ) -Color (Cheri-wound Skin Appearance) No Abnormality -Temperature (Cheri-wound Skin No Abnormality Appearance) (Pt Warm) -Tenderness on Palpation (Cheri-wound No Skin Appearance) -Ulcer Cleansing Wound Cleanser -Foul Odor after Cleansing No -Anesthetic Used 4% Lidocaine Solution [Edema Assessment] -Right Calf (cm) 39 -Right Ankle (cm) 24 -Right Foot (cm) 37.5 -Left Calf (cm) 22.5 WC - Nurse 2 - General Ulcer CM Notes Start: 04/26/18 13:15 Freq: Status: Active Protocol: Activity Type Activity Date Activity User E-Sign Co-Sign Detail Recorded Client Recorded Date Recorded By Document 05/10/18 13:34 AMMON [id number] 05/10/18 13:39 AMMON 05/10/18 13:34 Wound Center Nurse 2 [Procedure/Treatment] #4 RIGHT GREAT TOE MEDIAL -Time 13:35 -Correct Patient Yes -Correct Side, Site, Position Yes -Correct Procedure Yes -Procedure Performed Yes -Type of Procedure Debridement -Clinical Debridement Subcutaneous -Post Debridement Size (cm) - Length 0.7 -Post Debridement Size (cm) - Width 0.8 -Post Debridement Size (cm) - Depth 0.2 -Total Square Cm 0.56 #3 RIGHT FOOT PLANTAR -Time 13:35 -Correct Patient Yes -Correct Side, Site, Position Yes -Correct Procedure Yes -Procedure Performed Yes -Type of Procedure Debridement -Clinical Debridement Subcutaneous -Post Debridement Size (cm) - Length 1.7 -Post Debridement Size (cm) - Width 0.7 -Post Debridement Size (cm) - Depth 0.5 -Total Square Cm 1.19 -Wound/Ulcer Outcome Not Healed -Ulcer Cleansing Rinsed/ Irrigated with Saline -Foul Odor after Cleansing No -Bioengineered Tissue No -Bleeding Controlled with Pressure -Treatment Response Procedure Tolerated Well #1 LEFT PLANTAR -Time 13:35 -Correct Patient Yes -Correct Side, Site, Position Yes -Correct Procedure Yes -Procedure Performed Yes -Type of Procedure Debridement -Clinical Debridement Subcutaneous -Post Debridement Size (cm) - Length 7.8 -Post Debridement Size (cm) - Width 3.5 -Post Debridement Size (cm) - Depth 0.1 -Total Square Cm 27.30 -Wound/Ulcer Outcome Not Healed -Ulcer Cleansing Rinsed/ Irrigated with Saline -Foul Odor after Cleansing No -Bioengineered Tissue No -Bleeding Controlled with Pressure -Treatment Response Procedure Tolerated Well [See Physician Procedure note for Specifics] Pain Scale: 0-10 Numeric [Pain] -Is Patient Pain Free? Yes Musculoskeletal: No Tenderness to Palpation of Joints or Extremities, Muscle Wasting Neurological: - - Lack of epicritic sensation light touch bilateral lower extremity Psych/Mental Status: Normal Affect, Appropriate Debridement Note Post-Debridement Measurements/Treatment WC - Nurse 2 - General Ulcer CM Notes Start: 04/26/18 13:15 Freq: Status: Active Protocol: Activity Type Activity Date Activity User E-Sign Co-Sign Detail Recorded Client Recorded Date Recorded By Document 04/26/18 13:47 [id number] 04/26/18 14:03 Document 05/03/18 13:38 [id number] 05/03/18 13:56 Document 05/10/18 13:34 [id number] 05/10/18 13:39 04/26/18 05/03/18 05/10/18 13:47 13:38 13:34 Wound Center Nurse 2 #5 RIGHT ANTERIOR DISTAL FOOT -Correct Patient No -Correct Side, Site, Position No -Correct Procedure No -Procedure Performed No -Post Debridement Size (cm) - Length 0 -Post Debridement Size (cm) - Width 0 -Post Debridement Size (cm) - Depth 0 -Total Square Cm 0 -Wound/Ulcer Outcome Healed- Epithelialized #4 RIGHT GREAT TOE MEDIAL -Time 13:55 13:53 13:35 -Correct Patient Yes Yes Yes -Correct Side, Site, Position Yes Yes Yes -Correct Procedure Yes Yes Yes -Procedure Performed Yes Yes Yes -Type of Procedure Debridement Debridement Debridement -Clinical Debridement Subcutaneous Subcutaneous Subcutaneous -Post Debridement Size (cm) - Length 0.6 0.2 0.7 -Post Debridement Size (cm) - Width 0.5 0.3 0.8 -Post Debridement Size (cm) - Depth 0.1 0.3 0.2 -Total Square Cm 0.30 0.06 0.56 -Wound/Ulcer Outcome Not Healed Not Healed -Ulcer Cleansing Rinsed/ Rinsed/ Irrigated with Irrigated with Saline Saline -Foul Odor after Cleansing No No -Bioengineered Tissue No No -Topical Lidocaine (%) 4 -Bleeding Controlled with Pressure Pressure -Treatment Response Procedure Procedure Tolerated Well Tolerated Well #3 RIGHT FOOT PLANTAR -Time 13:49 13:54 13:35 -Correct Patient Yes Yes Yes -Correct Side, Site, Position Yes Yes Yes -Correct Procedure Yes Yes Yes -Procedure Performed Yes Yes Yes -Type of Procedure Debridement Debridement Debridement -Clinical Debridement Subcutaneous Subcutaneous Subcutaneous -Post Debridement Size (cm) - Length 2.3 8.5 1.7 -Post Debridement Size (cm) - Width 1.3 4.9 0.7 -Post Debridement Size (cm) - Depth 3.0 3.1 0.5 -Total Square Cm 2.99 41.65 1.19 -Wound/Ulcer Outcome Not Healed Not Healed Not Healed -Ulcer Cleansing Rinsed/ Rinsed/ Rinsed/ Irrigated with Irrigated with Irrigated with Saline Saline Saline -Foul Odor after Cleansing No No No -Bioengineered Tissue No No No -Topical Lidocaine (%) 4 -Bleeding Controlled with Pressure Pressure Pressure -Treatment Response Procedure Procedure Procedure Tolerated Well Tolerated Well Tolerated Well #2 LEFT Dorsal -Correct Patient No -Correct Side, Site, Position No -Correct Procedure No -Procedure Performed No -Post Debridement Size (cm) - Length 0 -Post Debridement Size (cm) - Width 0 -Post Debridement Size (cm) - Depth 0 -Total Square Cm 0 -Wound/Ulcer Outcome Healed- Epithelialized #1 LEFT PLANTAR -Time 13:48 13:55 13:35 -Correct Patient Yes Yes Yes -Correct Side, Site, Position Yes Yes Yes -Correct Procedure Yes Yes Yes -Procedure Performed Yes Yes Yes -Type of Procedure Debridement Debridement Debridement -Clinical Debridement Subcutaneous Subcutaneous Subcutaneous -Post Debridement Size (cm) - Length 8.8 2.1 7.8 -Post Debridement Size (cm) - Width 4.8 0.8 3.5 -Post Debridement Size (cm) - Depth 0.1 1.9 0.1 -Total Square Cm 42.24 1.68 27.30 -Wound/Ulcer Outcome Not Healed Not Healed Not Healed -Ulcer Cleansing Rinsed/ Rinsed/ Rinsed/ Irrigated with Irrigated with Irrigated with Saline Saline Saline -Foul Odor after Cleansing No No No -Bioengineered Tissue No No No -Topical Lidocaine (%) 4 -Bleeding Controlled with Pressure Pressure Pressure -Treatment Response Procedure Procedure Procedure Tolerated Well Tolerated Well Tolerated Well Pain Scale: 0-10 Numeric Is Patient Pain Free? Yes Yes Yes Wound debrided: plantar metatarsal head region Laterality: Right Wound Grade/Stage: grade 3 Type of Debridement: Excisional debridement Anesthesia Used: 4% Lidocaine Solution Depth: in the subcutaneous layer Percentage of wound debrided: 100 Instrument Used: #15 blade Tissue Removed: fibrous, devitalized subcutaneous, biofilm, slough Severity: Fat Layer Exposed Amount of bleeding with debridement: Mild Bleeding Controlled with: Pressure Patient tolerated procedure well - Additional Wound Wound debrided: plantar hallux Laterality: Right Wound Grade/Stage: grade 1 Type of Debridement: Excisional debridement Depth: in the subcutaneous layer Percentage of wound debrided: 100 Instrument Used: #15 blade Tissue Removed: fibrous, devitalized subcutaneous, biofilm, slough Severity: Fat Layer Exposed Amount of bleeding with debridement: Mild Bleeding Controlled with: Pressure Patient tolerated procedure: Patient tolerated procedure well - Additional Wound Wound debrided: plantar foot Laterality: Left Wound Grade/Stage: grade 3 Type of Debridement: Excisional debridement Anesthesia Used: 4% Lidocaine Solution Depth: in the subcutaneous layer Percentage of wound debrided: 100 Instrument Used: #15 blade Tissue Removed: fibrous, devitalized subcutaneous, biofilm, slough Severity: Fat Layer Exposed Amount of bleeding with debridement: Mild Bleeding Controlled with: Pressure Patient tolerated procedure: Patient tolerated procedure well Assessment/Plan Clinical Impression(s) from Imaging Studies Foot X-Ray 05/01/18 13:32 IMPRESSION: Normal x-ray examination of the foot. Electronically Signed: Delano Jules MD at 19:00 EST , Service support , Assessment: see above diagnoses Plan: I reviewed and discussed her care plan today. A subcutaneous excisional debridement was performed today as noted in the clinical pane to bilateral foot ulcer sites. The patient tolerated the procedure well. I recommend change in left foot dressing daily with typical in the right foot dressing with new gauze deep packing to the submetatarsal head ulcer site. It is noted that her current ulcer site is a sequela of a previous grade 3 ulcer with infected tendon deep tissue bilateral foot. She was initially taken to the operating room for emergent debridement and has been undergoing a comprehensive wound healing regimen. Baseline bloodwork reviewed and most recent A1C 12.9, referral to PCP and endocrinology. Her clinical signs of infection and inflammation have resolved I recommend she complete her 10-day course of doxycycline and Augmentin. Her x-rays from last week were reviewed without evidence of osseous destruction, soft tissue emphysema or foreign body or other acute injuries. The patient was educated on the importance of diet on wound healing and instructed to increase protein and vitamin C intake. Patient educated on proper offloading mechanisms and will follow with podiatry per their recommendation. Compliance was discussed and it is noted she does have some sharing movement of her wound dressings with suggest that some pressure and friction is occurring. To use assistive devices. We will also consider total contact cast if she continues to struggle with this. Patient verbalized understanding. Patient will follow up at wound healing center in one week or sooner if needed. Patient would benefit from homecare, however, she notes that her insurance will not cover this due to her age. A new insurance company was pursued and she is able to get dressings at this time. I also recommend additional operating room debridement with application of advanced wound care products, amnio fill and epi cord as a staged and planned procedure pending her continued response to her recently apply antibiotic. She is also be a hyperbaric oxygen therapy candidate and we discussed the indications, benefits, risks, complications, anticipated healing time management. She confirmed that she is not able to attend more than a couple sessions at most a week and is not able to proceed forward with this. I answered her questions. To return to clinic in 1 week or call sooner if she has any questions or concerns.
[2018-05-17 13:15] VITALS: BP 132/77; PULSE 110; RESP 18; TEMP 36.4
--- NOTE | 2018-05-17 14:14 | PN.PCM_ITS ---
(1) Chronic ulcer of left foot with fat layer exposed Status: Chronic Current Visit: Yes Code(s): L97.522 - Non-pressure chronic ulcer of other part of left foot with fat layer exposed (2) Ulcer of right foot with fat layer exposed Status: Chronic Current Visit: Yes Code(s): L97.512 - Non-pressure chronic ulcer of other part of right foot with fat layer exposed (3) Cellulitis of right foot Status: Resolved Current Visit: Yes Code(s): L03.115 - Cellulitis of right lower limb (4) Type 2 diabetes mellitus with diabetic polyneuropathy Status: Chronic Current Visit: Yes Code(s): E11.42 - Type 2 diabetes m ellitus with diabetic polyneuropathy (5) Obesity (BMI 30.0-34.9) Status: Chronic Current Visit: Yes Code(s): E66.9 - Obesity, unspecified Type of Wound Date of Service: 05/17/18 Chief Complaint: Nonhealing ulcers b/l feet History of Wound: This 28-year-old female with uncontrolled diabetes returns to clinic for follow-up of bilateral ulcers. She denies subjective fever, chill, nausea, vomiting. She has been packing her right foot ulcer site as advised. She completed antibiotics and has reduced redness and inflammation to the right foot. She is trying her best to keep weight off the site and strugg les because she is still a full-time student. Progress of Wound: improving bilateral - Physical Exam Vital Signs Temp Pulse Resp BP 97.5 F L 110 H 18 132/77 H 05/17/18 13:15 05/17/18 13:15 05/17/18 13:15 05/17/18 13:15 General: Alert, Oriented x3, Cooperative Extremities: No cyanosis, Capillary Refill Less than 3 Seconds - All digits bilateral, No Calf Tenderness - Negative Chiquita and Rockwell sign bilateral, Edema - Decreased bilateral lower extremities, Peripheral Pulses Normal, - - Dorsal contraction of lesser toes with prominent metatarsal heads right foot Skin: Ulcer/ Wound - No purulence, erythema, streaking, odor, or acute signs of infection bilateral no necrosis bilateral the inflammation has resolved to the right foot after new gauze wound packing and antibiotic implementation. There is continued peripheral epithelialization and improve granulation tissue to the left plantar foot as well and to the plantar right hallux, - - The peripheral skin is atrophic bilateral Wound Measurements and Assessment WC - Nurse 1 - General Ulcer Measurement Start: 04/26/18 13:15 Freq: Status: Active Protocol: Activity Type Activity Date Activity User E-Sign Co-Sign Detail Recorded Client Recorded Date Recorded By Document 05/17/18 13:15 AMMON [id number] 05/17/18 13:18 AMMON 05/17/18 13:15 Wound Center Nurse 1 [Ulcer Assessment] #4 RIGHT GREAT TOE MEDIAL -Combined with other wound No -Current Size (cm) - Length 0.3 -Current Size (cm) - Width 0.3 -Current Size (cm) - Depth 0.1 -Total Square Cm 0.09 -Photo Taken No -Epithelialization None Present -Tunneling No -Undermining/Tunneling No -Circular Undermining No -Exudate Amt None Present (0 %) -Wound Margin Indistinct, Non -Visible -Granulation Amt None Present (0 %) -Granulation Quality [place] -Slough/Fibrin Yes -Necrosis Amt Small (1-33%) -Necrotic Tissue Type Adherent Slough -Structure Exposed N/A -Texture (Cheri-wound Skin Appearance) Assessed Callus -Moisture (Cheri-wound Skin Appearance Assessed ) Dry/Scaly -Color (Cheri-wound Skin Appearance) Assessed -Temperature (Cheri-wound Skin No Abnormality Appearance) (Pt Warm) -Tenderness on Palpation (Cheri-wound No Skin Appearance) -Ulcer Cleansing Wound Cleanser -Foul Odor after Cleansing No -Anesthetic Used 4% Lidocaine Solution #3 RIGHT FOOT PLANTAR -Combined with other wound No -Current Size (cm) - Length 1.3 -Current Size (cm) - Width 0.7 -Current Size (cm) - Depth 2.0 -Total Square Cm 0.91 -Photo Taken No -Epithelialization None Present -Tunneling No -Undermining/Tunneling No -Circular Undermining No -Exudate Amt Medium (34-66%) -Exudate Type Serosanguineous -Wound Margin Flat & Intact -Granulation Amt Large (67-100%) -Granulation Quality Red -Slough/Fibrin Yes -Necrosis Amt Small (1-33%) -Necrotic Tissue Type Adherent Slough -Structure Exposed N/A -Texture (Cheri-wound Skin Appearance) Assessed Callus -Moisture (Cheri-wound Skin Appearance Assessed ) Dry/Scaly -Color (Cheri-wound Skin Appearance) Assessed -Temperature (Cheri-wound Skin No Abnormality Appearance) (Pt Warm) -Tenderness on Palpation (Cheri-wound No Skin Appearance) -Ulcer Cleansing Wound Cleanser -Foul Odor after Cleansing No -Anesthetic Used 4% Lidocaine Solution #1 LEFT PLANTAR -Combined with other wound No -Current Size (cm) - Length 7.8 -Current Size (cm) - Width 4.2 -Current Size (cm) - Depth 0.2 -Total Square Cm 32.76 -Photo Taken No -Epithelialization Small 1-33% -Tunneling No -Undermining/Tunneling No -Circular Undermining No -Exudate Amt Large (67-100%) -Exudate Type Serosanguineous -Wound Margin Flat & Intact -Granulation Amt Large (67-100%) -Granulation Quality Red -Slough/Fibrin Yes -Necrosis Amt Small (1-33%) -Necrotic Tissue Type Adherent Slough -Structure Exposed N/A -Texture (Cheri-wound Skin Appearance) Assessed Callus -Moisture (Cheri-wound Skin Appearance Assessed ) Dry/Scaly -Color (Cheri-wound Skin Appearance) Assessed -Temperature (Cheri-wound Skin No Abnormality Appearance) (Pt Warm) -Tenderness on Palpation (Cheri-wound No Skin Appearance) -Ulcer Cleansing Wound Cleanser -Foul Odor after Cleansing No -Anesthetic Used 4% Lidocaine Solution [Edema Assessment] -Lower Limb Edema Present Yes -Right Calf (cm) 40.7 -Right Ankle (cm) 25.5 -Left Calf (cm) 41.3 -Left Ankle (cm) 24.3 WC - Nurse 2 - General Ulcer CM Notes Start: 04/26/18 13:15 Freq: Status: Active Protocol: Activity Type Activity Date Activity User E-Sign Co-Sign Detail Recorded Client Recorded Date Recorded By Document 05/17/18 13:37 [id number] 05/17/18 13:41 05/17/18 13:37 Wound Center Nurse 2 [Procedure/Treatment] #4 RIGHT GREAT TOE MEDIAL -Time 13:38 -Correct Patient Yes -Correct Side, Site, Position Yes -Correct Procedure Yes -Procedure Performed Yes -Type of Procedure Debridement -Clinical Debridement Subcutaneous -Post Debridement Size (cm) - Length 0.4 -Post Debridement Size (cm) - Width 0.4 -Post Debridement Size (cm) - Depth 0.1 -Total Square Cm 0.16 -Wound/Ulcer Outcome Not Healed -Ulcer Cleansing Rinsed/ Irrigated with Saline -Foul Odor after Cleansing No -Bioengineered Tissue No -Topical Lidocaine (%) 4 -Bleeding Controlled with Pressure -Treatment Response Procedure Tolerated Well #3 RIGHT FOOT PLANTAR -Time 13:38 -Correct Patient Yes -Correct Side, Site, Position Yes -Correct Procedure Yes -Procedure Performed Yes -Type of Procedure Debridement -Clinical Debridement Subcutaneous -Post Debridement Size (cm) - Length 1.4 -Post Debridement Size (cm) - Width 0.8 -Post Debridement Size (cm) - Depth 0.2 -Total Square Cm 1.12 -Wound/Ulcer Outcome Not Healed -Ulcer Cleansing Rinsed/ Irrigated with Saline -Foul Odor after Cleansing No -Bioengineered Tissue No -Lidocaine (ml) 1 -Bleeding Controlled with Pressure -Treatment Response Procedure Tolerated Well #1 LEFT PLANTAR -Time 13:39 -Correct Patient Yes -Correct Side, Site, Position Yes -Correct Procedure Yes -Procedure Performed Yes -Type of Procedure Debridement -Clinical Debridement Subcutaneous -Post Debridement Size (cm) - Length 7.9 -Post Debridement Size (cm) - Width 4.3 -Post Debridement Size (cm) - Depth 0.2 -Total Square Cm 33.97 -Wound/Ulcer Outcome Not Healed -Ulcer Cleansing Rinsed/ Irrigated with Saline -Foul Odor after Cleansing No -Bioengineered Tissue No -Topical Lidocaine (%) 4 -Bleeding Controlled with Pressure -Treatment Response Procedure Tolerated Well [See Physician Procedure note for Specifics] Pain Scale: 0-10 Numeric [Pain] -Is Patient Pain Free? Yes Musculoskeletal: No Tenderness to Palpation of Joints or Extremities, Muscle Wasting Neurological: - - Lack of epicritic sensation light touch bilateral lower extremity is consistent with neuropathy Psych/Mental Status: Normal Affect, Appropriate Debridement Note Post-Debridement Measurements/Treatment WC - Nurse 2 - General Ulcer CM Notes Start: 04/26/18 13:15 Freq: Status: Active Protocol: Activity Type Activity Date Activity User E-Sign Co-Sign Detail Recorded Client Recorded Date Recorded By Document 04/26/18 13:47 [id number] 04/26/18 14:03 Document 05/03/18 13:38 [id number] 05/03/18 13:56 Document 05/10/18 13:34 [id number] 05/10/18 13:39 JF Document 05/17/18 13:37 TM [id number] 05/17/18 13:41 TM 04/26/18 05/03/18 05/10/18 13:47 13:38 13:34 Wound Center Nurse 2 #5 RIGHT ANTERIOR DISTAL FOOT -Correct Patient No -Correct Side, Site, Position No -Correct Procedure No -Procedure Performed No -Post Debridement Size (cm) - Length 0 -Post Debridement Size (cm) - Width 0 -Post Debridement Size (cm) - Depth 0 -Total Square Cm 0 -Wound/Ulcer Outcome Healed- Epithelialized #4 RIGHT GREAT TOE MEDIAL -Time 13:55 13:53 13:35 -Correct Patient Yes Yes Yes -Correct Side, Site, Position Yes Yes Yes -Correct Procedure Yes Yes Yes -Procedure Performed Yes Yes Yes -Type of Procedure Debridement Debridement Debridement -Clinical Debridement Subcutaneous Subcutaneous Subcutaneous -Post Debridement Size (cm) - Length 0.6 0.2 0.7 -Post Debridement Size (cm) - Width 0.5 0.3 0.8 -Post Debridement Size (cm) - Depth 0.1 0.3 0.2 -Total Square Cm 0.30 0.06 0.56 -Wound/Ulcer Outcome Not Healed Not Healed -Ulcer Cleansing Rinsed/ Rinsed/ Irrigated with Irrigated with Saline Saline -Foul Odor after Cleansing No No -Bioengineered Tissue No No -Topical Lidocaine (%) 4 -Bleeding Controlled with Pressure Pressure -Treatment Response Procedure Procedure Tolerated Well Tolerated Well #3 RIGHT FOOT PLANTAR -Time 13:49 13:54 13:35 -Correct Patient Yes Yes Yes -Correct Side, Site, Position Yes Yes Yes -Correct Procedure Yes Yes Yes -Procedure Performed Yes Yes Yes -Type of Procedure Debridement Debridement Debridement -Clinical Debridement Subcutaneous Subcutaneous Subcutaneous -Post Debridement Size (cm) - Length 2.3 8.5 1.7 -Post Debridement Size (cm) - Width 1.3 4.9 0.7 -Post Debridement Size (cm) - Depth 3.0 3.1 0.5 -Total Square Cm 2.99 41.65 1.19 -Wound/Ulcer Outcome Not Healed Not Healed Not Healed -Ulcer Cleansing Rinsed/ Rinsed/ Rinsed/ Irrigated with Irrigated with Irrigated with Saline Saline Saline -Foul Odor after Cleansing No No No -Bioengineered Tissue No No No -Topical Lidocaine (%) 4 -Lidocaine (ml) -Bleeding Controlled with Pressure Pressure Pressure -Treatment Response Procedure Procedure Procedure Tolerated Well Tolerated Well Tolerated Well #2 LEFT Dorsal -Correct Patient No -Correct Side, Site, Position No -Correct Procedure No -Procedure Performed No -Post Debridement Size (cm) - Length 0 -Post Debridement Size (cm) - Width 0 -Post Debridement Size (cm) - Depth 0 -Total Square Cm 0 -Wound/Ulcer Outcome Healed- Epithelialized #1 LEFT PLANTAR -Time 13:48 13:55 13:35 -Correct Patient Yes Yes Yes -Correct Side, Site, Position Yes Yes Yes -Correct Procedure Yes Yes Yes -Procedure Performed Yes Yes Yes -Type of Procedure Debridement Debridement Debridement -Clinical Debridement Subcutaneous Subcutaneous Subcutaneous -Post Debridement Size (cm) - Length 8.8 2.1 7.8 -Post Debridement Size (cm) - Width 4.8 0.8 3.5 -Post Debridement Size (cm) - Depth 0.1 1.9 0.1 -Total Square Cm 42.24 1.68 27.30 -Wound/Ulcer Outcome Not Healed Not Healed Not Healed -Ulcer Cleansing Rinsed/ Rinsed/ Rinsed/ Irrigated with Irrigated with Irrigated with Saline Saline Saline -Foul Odor after Cleansing No No No -Bioengineered Tissue No No No -Topical Lidocaine (%) 4 -Bleeding Controlled with Pressure Pressure Pressure -Treatment Response Procedure Procedure Procedure Tolerated Well Tolerated Well Tolerated Well Pain Scale: 0-10 Numeric Is Patient Pain Free? Yes Yes Yes 05/17/18 13:37 Wound Center Nurse 2 #5 RIGHT ANTERIOR DISTAL FOOT -Correct Patient -Correct Side, Site, Position -Correct Procedure -Procedure Performed -Post Debridement Size (cm) - Length -Post Debridement Size (cm) - Width -Post Debridement Size (cm) - Depth -Total Square Cm -Wound/Ulcer Outcome #4 RIGHT GREAT TOE MEDIAL -Time 13:38 -Correct Patient Yes -Correct Side, Site, Position Yes -Correct Procedure Yes -Procedure Performed Yes -Type of Procedure Debridement -Clinical Debridement Subcutaneous -Post Debridement Size (cm) - Length 0.4 -Post Debridement Size (cm) - Width 0.4 -Post Debridement Size (cm) - Depth 0.1 -Total Square Cm 0.16 -Wound/Ulcer Outcome Not Healed -Ulcer Cleansing Rinsed/ Irrigated with Saline -Foul Odor after Cleansing No -Bioengineered Tissue No -Topical Lidocaine (%) 4 -Bleeding Controlled with Pressure -Treatment Response Procedure Tolerated Well #3 RIGHT FOOT PLANTAR -Time 13:38 -Correct Patient Yes -Correct Side, Site, Position Yes -Correct Procedure Yes -Procedure Performed Yes -Type of Procedure Debridement -Clinical Debridement Subcutaneous -Post Debridement Size (cm) - Length 1.4 -Post Debridement Size (cm) - Width 0.8 -Post Debridement Size (cm) - Depth 0.2 -Total Square Cm 1.12 -Wound/Ulcer Outcome Not Healed -Ulcer Cleansing Rinsed/ Irrigated with Saline -Foul Odor after Cleansing No -Bioengineered Tissue No -Topical Lidocaine (%) -Lidocaine (ml) 1 -Bleeding Controlled with Pressure -Treatment Response Procedure Tolerated Well #2 LEFT Dorsal -Correct Patient -Correct Side, Site, Position -Correct Procedure -Procedure Performed -Post Debridement Size (cm) - Length -Post Debridement Size (cm) - Width -Post Debridement Size (cm) - Depth -Total Square Cm -Wound/Ulcer Outcome #1 LEFT PLANTAR -Time 13:39 -Correct Patient Yes -Correct Side, Site, Position Yes -Correct Procedure Yes -Procedure Performed Yes -Type of Procedure Debridement -Clinical Debridement Subcutaneous -Post Debridement Size (cm) - Length 7.9 -Post Debridement Size (cm) - Width 4.3 -Post Debridement Size (cm) - Depth 0.2 -Total Square Cm 33.97 -Wound/Ulcer Outcome Not Healed -Ulcer Cleansing Rinsed/ Irrigated with Saline -Foul Odor after Cleansing No -Bioengineered Tissue No -Topical Lidocaine (%) 4 -Bleeding Controlled with Pressure -Treatment Response Procedure Tolerated Well Pain Scale: 0-10 Numeric Is Patient Pain Free? Yes Wound debrided: plantar hallux Laterality: Right Wound Grade/Stage: grade 1 Type of Debridement: Excisional debridement Anesthesia Used: 5% Lidocaine Gel Depth: in the subcutaneous layer Percentage of wound debrided: 100 Instrument Used: #15 blade Tissue Removed: fibrous, devitalized subcutaneous, biofilm, slough Severity: Fat Layer Exposed Amount of bleeding with debridement: Mild Bleeding Controlled with: Pressure Patient tolerated procedure well - Additional Wound Wound debrided: plantar foot Laterality: Left Wound Grade/Stage: grade 3 Type of Debridement: Excisional debridement Anesthesia Used: 5% Lidocaine Gel Depth: in the subcutaneous layer Percentage of wound debrided: 100 Instrument Used: #15 blade Tissue Removed: fibrous, devitalized subcutaneous, biofilm, slough Severity: Fat Layer Exposed Amount of bleeding with debridement: Mild Bleeding Controlled with: Pressure Patient tolerated procedure: Patient tolerated procedure well - Additional Wound Wound debrided: sub metatarsal head Laterality: Right - g Wound Grade/Stage: grade 3 Type of Debridement: Excisional debridement Anesthesia Used: 5% Lidocaine Gel Depth: in the subcutaneous layer Percentage of wound debrided: 100 Instrument Used: #15 blade, Forceps Tissue Removed: fibrous, devitalized subcutaneous, biofilm, slough, peripheral callous Severity: Fat Layer Exposed Amount of bleeding with debridement: Mild Bleeding Controlled with: Pressure Patient tolerated procedure: Patient tolerated procedure well, - - Delayed primary closure was achieved with 2-0 Prolene utilizing wide retention simple sutures and horizontal mattress technique. The skin edges were gently everted without significant tension. No deep necrosis or infection was noted prior to closure Assessment/Plan Clinical Impression(s) from Imaging Studies Foot X-Ray 05/01/18 13:32 IMPRESSION: Normal x-ray examination of the foot. Electronically Signed: Delano Jules MD at 19:00 EST , Service support , Active Problems (Last Reviewed 03/30/18 @ 15:05 by Jocelyn Barlow) Ulcer of right foot with fat layer exposed (Chronic) Chronic ulcer of left foot with fat layer exposed (Chronic) Type 2 diabetes mellitus with diabetic polyneuropathy (Chronic) Obesity (BMI 30.0-34.9) (Chronic) Assessment: see above diagnoses Plan: I reviewed and discussed her care plan today. A subcutaneous excisional debridement was performed today as noted in the clinical pane to bilateral foot ulcer sites. Delayed primary closure was performed to the submetatarsal head ulcer site after excisional debridement was performed to the right foot. To cover with Betadine gauze and change daily. The patient tolerated the procedure well. I recommend change in left foot dressing daily with typical in the right foot dressing with new gauze deep packing to the submetatarsal head ulcer site. It is noted that her current ulcer site is a sequela of a previous grade 3 ulcer with infected tendon deep tissue bilateral foot and the infection has resolved after recent antibiotics and ongoing wound care plan. To change other ulcer site dressings with the Aquacel Ag. I recommended application of advanced wound healing product, epi fix, in the clinical setting. Prior authorization will be initiated. This is medically necessary to optimize ulcer healing and prevent limb loss. Baseline bloodwork reviewed and most recent A1C 12.9, referral to PCP and endocrinology. Her x-rays from last week were reviewed without evidence of osseous destruction, soft tissue emphysema or foreign body or other acute injuries. The patient was educated on the impo rtance of diet on wound healing and instructed to increase protein and vitamin C intake. Compliance was discussed and it is noted she does have some sharing movement of her wound dressings with suggest that some pressure and friction is occurring. To use assistive devices. We will also consider total contact cast if she continues to struggle with this. Patient verbalized understanding. Patient will follow up at wound healing center in one week or sooner if needed. I also recommend additional operating room debridement with application of advanced wound care products, amnio fill and epi cord as a staged and planned procedure pending her continued response to her recently apply antibiotic. She is also be a hyperbaric oxygen therapy candidate and we discussed the indications, benefits, risks, complications, anticipated healing time management. She confirmed that she is not able to attend more than a couple sessions at most a week and is not able to proceed forward with this. I answered her questions. To return to clinic in 1 week or call sooner if she has any questions or concerns.
== END 2018-05-19 23:59 ==
LOC: WC 13:00
PROVIDERS: Family Provider Internal Medicine; PCP Internal Medicine; Visit Provider Podiatrist
DX: E11.621 Type 2 diabetes mellitus with foot ulcer (principal); L97.512 Non-pressure chronic ulcer of other part of right foot with fat layer exposed; E11.42 Type 2 diabetes mellitus with diabetic polyneuropathy; L97.522 Non-pressure chronic ulcer of other part of left foot with fat layer exposed; E66.9 Obesity, unspecified; Z68.31 Body mass index [BMI] 31.0-31.9, adult; Z71.3 Dietary counseling and surveillance; E11.65 Type 2 diabetes mellitus with hyperglycemia; L03.115 Cellulitis of right lower limb
CPT/HCPCS: 11042; 11045; 73630; 87070; 87075; 87077; 87186; 87205; 87640

== ENCOUNTER 2018-05-18 15:55 | Outpatient (RCR) | payer OTHER, SELFPAY ==
[2018-05-04 14:16] VITALS: BMI 36.7
== END 2018-05-19 23:59 ==
LOC: DC 15:55
PROVIDERS: Family Provider Internal Medicine; PCP Internal Medicine; Visit Provider Internal Medicine
DX: E66.9 Obesity, unspecified (principal); Z68.34 Body mass index [BMI] 34.0-34.9, adult; E11.42 Type 2 diabetes mellitus with diabetic polyneuropathy; Z71.3 Dietary counseling and surveillance
CPT/HCPCS: G0108

== ENCOUNTER 2018-05-25 15:18 | Outpatient (RCR) | payer OTHER, SELFPAY ==
[2018-05-04 14:16] VITALS: BMI 36.7
[2018-05-24 13:05] VITALS: BMI 36.7
== END 2018-06-19 23:59 ==
LOC: DC 15:18
PROVIDERS: Family Provider Internal Medicine; PCP Internal Medicine; Visit Provider Internal Medicine
DX: E11.42 Type 2 diabetes mellitus with diabetic polyneuropathy (principal); E66.9 Obesity, unspecified; Z68.34 Body mass index [BMI] 34.0-34.9, adult; Z71.3 Dietary counseling and surveillance
CPT/HCPCS: 97802

== ENCOUNTER 2018-05-31 13:00 | Outpatient (RCR) | payer OTHER, SELFPAY ==
[2018-05-04 14:16] VITALS: BMI 36.7
[2018-05-20 01:27] VITALS: BP 132/77; PULSE 110; RESP 18; TEMP 36.4
[2018-05-24 13:05] VITALS: BP 149/85; PULSE 100; RESP 16; TEMP 36.6; BMI 36.7
--- NOTE | 2018-05-24 13:47 | PN.PCM_ITS ---
(1) Chronic ulcer of left foot with fat layer exposed Status: Chronic Current Visit: Yes Code(s): L97.522 - Non-pressure chronic ulcer of other part of left foot with fat layer exposed (2) Dehiscence of closure of subcutaneous tissue Status: Acute Current Visit: Yes Qualifiers: Encounter type: initial encounter Qualified Code(s): T81.31XA - Disruption of external operation (surgical) wound, not elsewhere classified, initial encounter Code(s): T81.31XA - Disruption of external operation (surgical) wound, not elsewhere classified, initial encounter (3) Ulcer of right foot with fat layer exposed Status: Chronic Current Visit: Yes Code(s): L97.512 - Non-pressure chronic ulcer of other part of right foot with fat layer exposed (4) Type 2 diabetes mellitus with diabetic polyneuropathy Status: Chronic Current Visit: Yes Code(s): E11.42 - Type 2 diabetes mellitus with diabetic polyneuropathy Type of Wound Date of Service: 05/24/18 Chief Complaint: Nonhealing ulcers b/l feet History of Wound: This 28-year-old female with uncontrolled diabetes returns to clinic for follow-up of bilateral ulcers. She denies subjective fever, chill, nausea, vomiting. She had a debridement and delayed primary closure last week to the right foot and relates maybe she stepped on this little bit and also got water on it from the snow outside earlier today. This may have caused the tissue to get as moist as it is today. She has been compliant with the dressing recommendations. She is trying to find a referral wound care center to attend during the timeframe of June 02 to June 26 when she is away at home for school break. Progress of Wound: Dehiscence right foot. Ulcer left foot. Ulcer right great toe - Physical Exam Vital Signs Temp Pulse Resp BP 98 F 100 16 149/85 H 05/24/18 13:05 05/24/18 13:05 05/24/18 13:05 05/24/18 13:05 General: Alert, Oriented x3, Cooperative Extremities: No cyanosis, Capillary Refill Less than 3 Seconds, No Calf Tenderness - Negative Chiquita breath and bilateral, Diminished Peripheral Pulses, Edema, - - Decreased first metatarsophalangeal joint range of motion loaded and unloaded right foot Skin: Ulcer/ Wound - No purulence, erythema, string, odor, or infection bilateral. There is maceration and partial dehiscence of the plantar aspect of the right foot at the site where the delayed primary closure debridement was performed last week. Wound Measurements and Assessment WC - Nurse 1 - General Ulcer Measurement Start: 05/24/18 13:05 Freq: Status: Active Protocol: Activity Type Activity Date Activity User E-Sign Co-Sign Detail Recorded Client Recorded Date Recorded By Document 05/24/18 13:05 [facility] [id number] 05/24/18 13:10 [facility] 05/24/18 13:05 Wound Center Nurse 1 [Ulcer Assessment] #4 RIGHT GREAT TOE MEDIAL -Combined with other wound No -Current Size (cm) - Length 0.3 -Current Size (cm) - Width 0.3 -Current Size (cm) - Depth 0.2 -Total Square Cm 0.09 -Photo Taken No -Epithelialization None Present -Tunneling No -Undermining/Tunneling No -Circular Undermining No -Exudate Amt Small (1-33%) -Exudate Type Serosanguineous -Wound Margin Distinct, Outline Attached -Granulation Amt Large (67-100%) -Granulation Quality Red -Slough/Fibrin Yes -Necrosis Amt Small (1-33%) -Necrotic Tissue Type Adherent Slough -Texture (Cheri-wound Skin Appearance) Callus Scarring -Moisture (Cheri-wound Skin Appearance Dry/Scaly ) -Color (Cheri-wound Skin Appearance) Assessed -Temperature (Cheri-wound Skin No Abnormality Appearance) (Pt Warm) -Tenderness on Palpation (Hceri-wound No Skin Appearance) -Ulcer Cleansing Rinsed/ Irrigated with Saline -Foul Odor after Cleansing No -Anesthetic Used 4% Lidocaine Solution #3 RIGHT FOOT PLANTAR -Combined with other wound No -Current Size (cm) - Length 1 -Current Size (cm) - Width 0.2 -Current Size (cm) - Depth 3 -Total Square Cm 0.2 -Photo Taken No -Epithelialization None Present -Tunneling No -Undermining/Tunneling No -Circular Undermining No -Exudate Amt Medium (34-66%) -Exudate Type Serosanguineous -Wound Margin Distinct, Outline Attached -Granulation Amt Large (67-100%) -Granulation Quality Red -Slough/Fibrin Yes -Necrosis Amt Small (1-33%) -Necrotic Tissue Type Adherent Slough -Texture (Cheri-wound Skin Appearance) Callus Scarring -Moisture (Cheri-wound Skin Appearance Maceration ) Dry/Scaly -Color (Cheri-wound Skin Appearance) Palor -Temperature (Cheri-wound Skin No Abnormality Appearance) (Pt Warm) -Tenderness on Palpation (Cheri-wound No Skin Appearance) -Ulcer Cleansing Rinsed/ Irrigated with Saline -Foul Odor after Cleansing No -Anesthetic Used 4% Lidocaine Solution #1 LEFT PLANTAR -Combined with other wound No -Current Size (cm) - Length 7.5 -Current Size (cm) - Width 3.5 -Current Size (cm) - Depth 0.2 -Total Square Cm 26.25 -Photo Taken No -Epithelialization None Present -Tunneling No -Undermining/Tunneling No -Circular Undermining No -Exudate Amt Medium (34-66%) -Exudate Type Serosanguineous -Wound Margin Distinct, Outline Attached -Granulation Amt Large (67-100%) -Granulation Quality Red -Slough/Fibrin Yes -Necrosis Amt Small (1-33%) -Necrotic Tissue Type Adherent Slough -Texture (Cheri-wound Skin Appearance) Callus Scarring -Moisture (Cheri-wound Skin Appearance Dry/Scaly ) -Color (Cheri-wound Skin Appearance) Assessed -Temperature (Cheri-wound Skin No Abnormality Appearance) (Pt Warm) -Tenderness on Palpation (Cheri-wound Yes Skin Appearance) -Ulcer Cleansing Rinsed/ Irrigated with Saline -Foul Odor after Cleansing No -Anesthetic Used 4% Lidocaine Solution [Edema Assessment] -Lower Limb Edema Present Yes -Right Calf (cm) 40 -Right Ankle (cm) 25.5 -Left Calf (cm) 39.7 -Left Ankle (cm) 24 WC - Nurse 2 - General Ulcer CM Notes Start: 05/24/18 13:05 Freq: Status: Active Protocol: Activity Type Activity Date Activity User E-Sign Co-Sign Detail Recorded Client Recorded Date Recorded By Document 05/24/18 13:29 [id number] 05/24/18 13:33 05/24/18 13:29 Wound Center Nurse 2 [Procedure/Treatment] #4 RIGHT GREAT TOE MEDIAL -Time 13:30 -Correct Patient Yes -Correct Side, Site, Position Yes -Correct Procedure Yes -Procedure Performed Yes -Type of Procedure Debridement -Clinical Debridement Subcutaneous -Post Debridement Size (cm) - Length 0.4 -Post Debridement Size (cm) - Width 0.4 -Post Debridement Size (cm) - Depth 0.2 -Total Square Cm 0.16 -Wound/Ulcer Outcome Not Healed -Ulcer Cleansing Rinsed/ Irrigated with Saline -Foul Odor after Cleansing No -Bioengineered Tissue No -Topical Lidocaine (%) 4 -Bleeding Controlled with Pressure -Offloading Yes -Type of Offloading Surgical Shoe -Treatment Response Procedure Tolerated Well #3 RIGHT FOOT PLANTAR -Time 13:31 -Correct Patient Yes -Correct Side, Site, Position Yes -Correct Procedure Yes -Procedure Performed Yes -Type of Procedure Debridement -Clinical Debridement Subcutaneous -Post Debridement Size (cm) - Length 1.1 -Post Debridement Size (cm) - Width 0.3 -Post Debridement Size (cm) - Depth 3.0 -Total Square Cm 0.33 -Wound/Ulcer Outcome Not Healed -Ulcer Cleansing Rinsed/ Irrigated with Saline -Foul Odor after Cleansing No -Bioengineered Tissue No -Topical Lidocaine (%) 4 -Bleeding Controlled with Pressure -Offloading Yes -Type of Offloading Surgical Shoe -Treatment Response Procedure Tolerated Well #1 LEFT PLANTAR -Time 13:31 -Correct Patient Yes -Correct Side, Site, Position Yes -Correct Procedure Yes -Procedure Performed Yes -Type of Procedure Debridement -Clinical Debridement Subcutaneous -Post Debridement Size (cm) - Length 7.6 -Post Debridement Size (cm) - Width 3.6 -Post Debridement Size (cm) - Depth 0.2 -Total Square Cm 27.36 -Wound/Ulcer Outcome Not Healed -Ulcer Cleansing Rinsed/ Irrigated with Saline -Foul Odor after Cleansing No -Bioengineered Tissue No -Topical Lidocaine (%) 4 -Bleeding Controlled with Pressure -Offloading Yes -Type of Offloading Surgical Shoe -Treatment Response Procedure Tolerated Well [See Physician Procedure note for Specifics] Pain Scale: 0-10 Numeric [Pain] -Is Patient Pain Free? Yes Musculoskeletal: No Tenderness to Palpation of Joints or Extremities, Muscle Wasting Neurological: - - Lack of epicritic sensation to light touch bilateral lower extremities Psych/Mental Status: Normal Affect, Appropriate Debridement Note Post-Debridement Measurements/Treatment WC - Nurse 2 - General Ulcer CM Notes Start: 05/24/18 13:05 Freq: Status: Active Protocol: Activity Type Activity Date Activity User E-Sign Co-Sign Detail Recorded Client Recorded Date Recorded By Document 05/24/18 13:29 [id number] 05/24/18 13:33 05/24/18 13:29 Wound Center Nurse 2 #4 RIGHT GREAT TOE MEDIAL -Time 13:30 -Correct Patient Yes -Correct Side, Site, Position Yes -Correct Procedure Yes -Procedure Performed Yes -Type of Procedure Debridement -Clinical Debridement Subcutaneous -Post Debridement Size (cm) - Length 0.4 -Post Debridement Size (cm) - Width 0.4 -Post Debridement Size (cm) - Depth 0.2 -Total Square Cm 0.16 -Wound/Ulcer Outcome Not Healed -Ulcer Cleansing Rinsed/ Irrigated with Saline -Foul Odor after Cleansing No -Bioengineered Tissue No -Topical Lidocaine (%) 4 -Bleeding Controlled with Pressure -Offloading Yes -Type of Offloading Surgical Shoe -Treatment Response Procedure Tolerated Well #3 RIGHT FOOT PLANTAR -Time 13:31 -Correct Patient Yes -Correct Side, Site, Position Yes -Correct Procedure Yes -Procedure Performed Yes -Type of Procedure Debridement -Clinical Debridement Subcutaneous -Post Debridement Size (cm) - Length 1.1 -Post Debridement Size (cm) - Width 0.3 -Post Debridement Size (cm) - Depth 3.0 -Total Square Cm 0.33 -Wound/Ulcer Outcome Not Healed -Ulcer Cleansing Rinsed/ Irrigated with Saline -Foul Odor after Cleansing No -Bioengineered Tissue No -Topical Lidocaine (%) 4 -Bleeding Controlled with Pressure -Offloading Yes -Type of Offloading Surgical Shoe -Treatment Response Procedure Tolerated Well #1 LEFT PLANTAR -Time 13:31 -Correct Patient Yes -Correct Side, Site, Position Yes -Correct Procedure Yes -Procedure Performed Yes -Type of Procedure Debridement -Clinical Debridement Subcutaneous -Post Debridement Size (cm) - Length 7.6 -Post Debridement Size (cm) - Width 3.6 -Post Debridement Size (cm) - Depth 0.2 -Total Square Cm 27.36 -Wound/Ulcer Outcome Not Healed -Ulcer Cleansing Rinsed/ Irrigated with Saline -Foul Odor after Cleansing No -Bioengineered Tissue No -Topical Lidocaine (%) 4 -Bleeding Controlled with Pressure -Offloading Yes -Type of Offloading Surgical Shoe -Treatment Response Procedure Tolerated Well Pain Scale: 0-10 Numeric Is Patient Pain Free? Yes Wound debrided: plantar hallux Laterality: Right Wound Grade/Stage: grade 1 Type of Debridement: Excisional debridement Anesthesia Used: 5% Lidocaine Gel Depth: in the subcutaneous layer Percentage of wound debrided: 100 Instrument Used: #15 blade Tissue Removed: fibrous, devitalized subcutaneous, biofilm, slough Severity: Fat Layer Exposed Amount of bleeding with debridement: Mild Bleeding Controlled with: Pressure Patient tolerated procedure well - Additional Wound Wound debrided: plantar foot Laterality: Left Wound Grade/Stage: grade 3 Type of Debridement: Excisional debridement Anesthesia Used: 5% Lidocaine Gel Depth: in the subcutaneous layer Percentage of wound debrided: 100 Instrument Used: #15 blade Tissue Removed: fibrous, devitalized subcutaneous, biofilm, slough Severity: Fat Layer Exposed Amount of bleeding with debridement: Mild Bleeding Controlled with: Pressure Patient tolerated procedure: Patient tolerated procedure well - Additional Wound Wound debrided: plantar foot - partially dehisced Laterality: Right Wound Grade/Stage: grade 3 Type of Debridement: Excisional debridement Anesthesia Used: 5% Lidocaine Gel Depth: in the subcutaneous layer Percentage of wound debrided: 100 Instrument Used: #15 blade Tissue Removed: fibrous, devitalized subcutaneous, biofilm, slough Severity: Fat Layer Exposed Amount of bleeding with debridement: Mild Bleeding Controlled with: Pressure Patient tolerated procedure: Patient tolerated procedure well Assessment/Plan Active Problems (Last Reviewed 03/30/18 @ 15:05 by Jocelyn Barlow) Dehiscence of closure of subcutaneous tissue (Acute) Ulcer of right foot with fat layer exposed (Chronic) Chronic ulcer of left foot with fat layer exposed (Chronic) Type 2 diabetes mellitus with diabetic polyneuropathy (Chronic) Assessment: see above diagnoses Plan: I reviewed and discussed her care plan today. A subcutaneous excisional debridement was performed today as noted in the clinical pane to bilateral foot ulcer sites. The delayed primary closure site that was intact was left intact and only the partially dehisced part was debrided as noted in the clinical panel. It is noted that her current ulcer site is a sequela of a previous grade 3 ulcer with infected tendon deep tissue bilateral foot and the infection has resolved after recent antibiotics and ongoing wound care plan. To change other ulcer site dressings with the [employer]. I recommended application of advanced wound healing product, apligraft, in the clinical setting. Prior authorization will be initiated. This is medically necessary to optimize ulcer healing and prevent limb loss. Baseline bloodwork reviewed and most recent A1C 12.9, referral to PCP and endocrinology. Her x-rays from last week were reviewed without evidence of osseous destruction, soft tissue emphysema or foreign body or other acute injuries. The patient was educated on the importance of diet on wound healing and instructed to increase protein and vitamin C intake. Compliance was discussed and it is noted she does have some sharing movement of her wound dressings with suggest that some pressure and friction is occurring. To use assistive devices. We will also consider total contact cast if she continues to struggle with this. Patient verbalized understanding. Patient will follow up at wound healing center in one week or sooner if needed. She is also a hyperbaric oxygen therapy candidate and we discussed the indications, benefits, risks, complications, anticipated healing time management. She confirmed that she is not able to attend more than a couple sessions at most a week and is not able to proceed forward with this. A referral to nearby wound center when she is away and home break will be arranged. I answered her questions. To return to clinic in 1 week or call sooner if she has any questions or concerns.
[2018-05-31 13:09] VITALS: BP 143/83; PULSE 108; RESP 16; TEMP 37; BMI 36.7
--- NOTE | 2018-05-31 13:40 | PN.PCM_ITS ---
(1) Chronic ulcer of left foot with fat layer exposed Status: Chronic Current Visit: Yes Code(s): L97.522 - Non-pressure chronic ulcer of other part of left foot with fat layer exposed (2) Dehiscence of closure of subcutaneous tissue Status: Chronic Current Visit: Yes Qualifiers: Encounter type: subsequent encounter Qualified Code(s): T81.31XD - Disruption of external operation (surgical) wound, not elsewhere classified, subsequent encounter Code(s): T81.31XA - Disruption of external operation (surgical) wound, not elsewhere classified, initial encounter (3) Ulcer of right foot with fat layer exposed Status: Chronic Current Visit: Yes Code(s): L97.512 - Non-pressure chronic ulcer of other part of right foot with fat layer exposed (4) Type 2 diabetes mellitus with diabetic polyneuropathy Status: Chronic Current Visit: Yes Code(s): E11.42 - Type 2 diabetes mellitus with diabetic polyneuropathy Type of Wound Chief Complaint: Bilateral foot ulcers bilateral foot ulcers History of Wound: This 28-year-old female with uncontrolled diabetes returns to clinic for follow-up of bilateral ulcers. She denies subjective fever, chill, nausea, vomiting. She had a debridement and delayed primary closure recently the right foot the sutures are now loose. She has been compliant with the dressing recommendations. She has found a local wound care center to attend during the timeframe of June 02 to June 26 when she is away at home for school break. Progress of Wound: Dehiscence right foot with ulcer. Ulcer left foot improving. Ulcer right great toe improving - Physical Exam Vital Signs Temp Pulse Resp BP 98.6 F 108 H 16 143/83 H 05/31/18 13:09 05/31/18 13:09 05/31/18 13:09 05/31/18 13:09 General: Alert, Oriented x3, Cooperative Extremities: No cyanosis, Capillary Refill Less than 3 Seconds, No Calf Tenderness - Negative [place] and [place] bilateral, Diminished Peripheral Pulses, Edema - mild Skin: Ulcer/ Wound - No purulence, erythema, streaking, odor, or infection. Suture removal his right foot demonstrates a more superficial wound with granular base. There is no cheri-ulcer site inflammation or infection or deep necrosis noted. There is peripheral epithelialization noted to the right hallux ulcer site as well as a left plantar foot ulcer site. The adjacent skin is atrophic. She does have hair to her lower legs Wound Measurements and Assessment WC - Nurse 1 - General Ulcer Measurement Start: 05/24/18 13:05 Freq: Status: Active Protocol: Activity Type Activity Date Activity User E-Sign Co-Sign Detail Recorded Client Recorded Date Recorded By Document 05/31/18 13:09 [facility] [id number] 05/31/18 13:17 [facility] 05/31/18 13:09 Wound Center Nurse 1 [Ulcer Assessment] #4 RIGHT GREAT TOE MEDIAL -Combined with other wound No -Current Size (cm) - Length 0.5 -Current Size (cm) - Width 0.4 -Current Size (cm) - Depth 0.2 -Total Square Cm 0.20 -Photo Taken No -Epithelialization None Present -Tunneling No -Undermining/Tunneling Yes -Undermining/Tunneling Starts (O' 12 clock) -Undermining/Tunneling Ends (O'clock) 12 -Maximum Distance (cm) 0.1 -Circular Undermining Yes -Exudate Amt Small (1-33%) -Exudate Type Serosanguineous -Wound Margin Distinct, Outline Attached -Granulation Amt Large (67-100%) -Granulation Quality Red -Slough/Fibrin No -Necrosis Amt None Present (0 %) -Texture (Cheri-wound Skin Appearance) Callus Scarring -Moisture (Cheri-wound Skin Appearance Dry/Scaly ) -Color (Cheri-wound Skin Appearance) Assessed -Temperature (Cheri-wound Skin No Abnormality Appearance) (Pt Warm) -Tenderness on Palpation (Cheri-wound No Skin Appearance) -Ulcer Cleansing Wound Cleanser -Foul Odor after Cleansing No -Anesthetic Used 5% Lidocaine Gel #3 RIGHT FOOT PLANTAR -Combined with other wound No -Current Size (cm) - Length 1.8 -Current Size (cm) - Width 1.8 -Current Size (cm) - Depth 0.5 -Total Square Cm 3.24 -Photo Taken No -Epithelialization None Present -Tunneling No -Undermining/Tunneling No -Circular Undermining No -Exudate Amt Medium (34-66%) -Exudate Type Serosanguineous -Wound Margin Thickened & Rolled Under -Granulation Amt Medium (34-66%) -Granulation Quality [place] -Slough/Fibrin Yes -Necrosis Amt Medium (34-66%) -Necrotic Tissue Type Adherent Slough -Texture (Cheri-wound Skin Appearance) Callus Scarring -Moisture (Cheri-wound Skin Appearance Maceration ) Dry/Scaly -Color (Cheri-wound Skin Appearance) Palor -Temperature (Cheri-wound Skin No Abnormality Appearance) (Pt Warm) -Tenderness on Palpation (Cheri-wound No Skin Appearance) -Ulcer Cleansing Wound Cleanser -Foul Odor after Cleansing No -Anesthetic Used 5% Lidocaine Gel #1 LEFT PLANTAR -Combined with other wound No -Current Size (cm) - Length 7 -Current Size (cm) - Width 3.2 -Current Size (cm) - Depth 0.2 -Total Square Cm 22.4 -Photo Taken No -Epithelialization Small 1-33% -Tunneling No -Undermining/Tunneling No -Circular Undermining No -Exudate Amt Medium (34-66%) -Exudate Type Serosanguineous -Wound Margin Distinct, Outline Attached -Granulation Amt Large (67-100%) -Granulation Quality [place] -Slough/Fibrin No -Necrosis Amt None Present (0 %) -Texture (Cheri-wound Skin Appearance) Scarring -Moisture (Cheri-wound Skin Appearance Dry/Scaly ) -Color (Cheri-wound Skin Appearance) Assessed -Temperature (Cheri-wound Skin No Abnormality Appearance) (Pt Warm) -Tenderness on Palpation (Cheri-wound No Skin Appearance) -Ulcer Cleansing Wound Cleanser -Foul Odor after Cleansing No -Anesthetic Used 5% Lidocaine Gel [Edema Assessment] -Lower Limb Edema Present Yes -Right Calf (cm) 38.5 -Right Ankle (cm) 23.4 -Left Calf (cm) 38.5 -Left Ankle (cm) 23.8 WC - Nurse 2 - General Ulcer CM Notes Start: 05/24/18 13:05 Freq: Status: Active Protocol: Activity Type Activity Date Activity User E-Sign Co-Sign Detail Recorded Client Recorded Date Recorded By Document 05/31/18 13:26 [facility] [id number] 05/31/18 13:28 [facility] 05/31/18 13:26 Wound Center Nurse 2 [Procedure/Treatment] #4 RIGHT GREAT TOE MEDIAL -Time 13:27 -Correct Patient Yes -Correct Side, Site, Position Yes -Correct Procedure Yes -Procedure Performed Yes -Type of Procedure Debridement -Clinical Debridement Subcutaneous -Post Debridement Size (cm) - Length 0.5 -Post Debridement Size (cm) - Width 0.5 -Post Debridement Size (cm) - Depth 0.2 -Total Square Cm 0.25 -Wound/Ulcer Outcome Not Healed -Ulcer Cleansing Rinsed/ Irrigated with Saline -Foul Odor after Cleansing No -Bioengineered Tissue No -Bleeding Controlled with Pressure -Offloading Yes -Type of Offloading Surgical Shoe -Treatment Response Procedure Tolerated Well #3 RIGHT FOOT PLANTAR -Time 13:27 -Correct Patient Yes -Correct Side, Site, Position Yes -Correct Procedure Yes -Procedure Performed Yes -Type of Procedure Debridement -Clinical Debridement Subcutaneous -Post Debridement Size (cm) - Length 1.8 -Post Debridement Size (cm) - Width 1.9 -Post Debridement Size (cm) - Depth 0.5 -Total Square Cm 3.42 -Wound/Ulcer Outcome Not Healed -Ulcer Cleansing Rinsed/ Irrigated with Saline -Foul Odor after Cleansing No -Bioengineered Tissue No -Bleeding Controlled with Pressure -Offloading Yes -Type of Offloading Surgical Shoe -Treatment Response Procedure Tolerated Well #1 LEFT PLANTAR -Time 13:28 -Correct Patient Yes -Correct Side, Site, Position Yes -Correct Procedure Yes -Procedure Performed Yes -Type of Procedure Debridement -Clinical Debridement Subcutaneous -Post Debridement Size (cm) - Length 7 -Post Debridement Size (cm) - Width 3.4 -Post Debridement Size (cm) - Depth 0.2 -Total Square Cm 23.8 -Wound/Ulcer Outcome Not Healed -Ulcer Cleansing Rinsed/ Irrigated with Saline -Foul Odor after Cleansing No -Bioengineered Tissue No -Bleeding Controlled with Pressure -Offloading Yes -Type of Offloading Surgical Shoe -Treatment Response Procedure Tolerated Well [See Physician Procedure note for Specifics] Pain Scale: 0-10 Numeric [Pain] -Is Patient Pain Free? Yes Musculoskeletal: No Tenderness to Palpation of Joints or Extremities, Muscle Was ting Neurological: - - Lack of epicritic sensation light touch bilateral Psych/Mental Status: Normal Affect, Appropriate Debridement Note Post-Debridement Measurements/Treatment WC - Nurse 2 - General Ulcer CM Notes Start: 05/24/18 13:05 Freq: Status: Active Protocol: Activity Type Activity Date Activity User E-Sign Co-Sign Detail Recorded Client Recorded Date Recorded By Document 05/24/18 13:29 [id number] 05/24/18 13:33 Document 05/31/18 13:26 [id number] 05/31/18 13:28 05/24/18 05/31/18 13:29 13:26 Wound Center Nurse 2 #4 RIGHT GREAT TOE MEDIAL -Time 13:30 13:27 -Correct Patient Yes Yes -Correct Side, Site, Position Yes Yes -Correct Procedure Yes Yes -Procedure Performed Yes Yes -Type of Procedure Debridement Debridement -Clinical Debridement Subcutaneous Subcutaneous -Post Debridement Size (cm) - Length 0.4 0.5 -Post Debridement Size (cm) - Width 0.4 0.5 -Post Debridement Size (cm) - Depth 0.2 0.2 -Total Square Cm 0.16 0.25 -Wound/Ulcer Outcome Not Healed Not Healed -Ulcer Cleansing Rinsed/ Rinsed/ Irrigated with Irrigated with Saline Saline -Foul Odor after Cleansing No No -Bioengineered Tissue No No -Topical Lidocaine (%) 4 -Bleeding Controlled with Pressure Pressure -Offloading Yes Yes -Type of Offloading Surgical Shoe Surgical Shoe -Treatment Response Procedure Procedure Tolerated Well Tolerated Well #3 RIGHT FOOT PLANTAR -Time 13:31 13:27 -Correct Patient Yes Yes -Correct Side, Site, Position Yes Yes -Correct Procedure Yes Yes -Procedure Performed Yes Yes -Type of Procedure Debridement Debridement -Clinical Debridement Subcutaneous Subcutaneous -Post Debridement Size (cm) - Length 1.1 1.8 -Post Debridement Size (cm) - Width 0.3 1.9 -Post Debridement Size (cm) - Depth 3.0 0.5 -Total Square Cm 0.33 3.42 -Wound/Ulcer Outcome Not Healed Not Healed -Ulcer Cleansing Rinsed/ Rinsed/ Irrigated with Irrigated with Saline Saline -Foul Odor after Cleansing No No -Bioengineered Tissue No No -Topical Lidocaine (%) 4 -Bleeding Controlled with Pressure Pressure -Offloading Yes Yes -Type of Offloading Surgical Shoe Surgical Shoe -Treatment Response Procedure Procedure Tolerated Well Tolerated Well #1 LEFT PLANTAR -Time 13:31 13:28 -Correct Patient Yes Yes -Correct Side, Site, Position Yes Yes -Correct Procedure Yes Yes -Procedure Performed Yes Yes -Type of Procedure Debridement Debridement -Clinical Debridement Subcutaneous Subcutaneous -Post Debridement Size (cm) - Length 7.6 7 -Post Debridement Size (cm) - Width 3.6 3.4 -Post Debridement Size (cm) - Depth 0.2 0.2 -Total Square Cm 27.36 23.8 -Wound/Ulcer Outcome Not Healed Not Healed -Ulcer Cleansing Rinsed/ Rinsed/ Irrigated with Irrigated with Saline Saline -Foul Odor after Cleansing No No -Bioengineered Tissue No No -Topical Lidocaine (%) 4 -Bleeding Controlled with Pressure Pressure -Offloading Yes Yes -Type of Offloading Surgical Shoe Surgical Shoe -Treatment Response Procedure Procedure Tolerated Well Tolerated Well Pain Scale: 0-10 Numeric Is Patient Pain Free? Yes Yes Wound debrided: plantar hallux Laterality: Right Wound Grade/Stage: grade 1 Type of Debridement: Excisional debridement Anesthesia Used: 5% Lidocaine Gel Depth: in the subcutaneous layer Percentage of wound debrided: 100 Instrument Used: #15 blade Tissue Removed: fibrous, devitalized subcutaneous, biofilm, slough Severity: Fat Layer Exposed Amount of bleeding with debridement: Mild Bleeding Controlled with: Pressure Patient tolerated procedure well - Additional Wound Wound debrided: plantar forefoot Laterality: Right Wound Grade/Stage: grade 3 Type of Debridement: Excisional debridement Anesthesia Used: 5% Lidocaine Gel Depth: in the subcutaneous layer Percentage of wound debrided: 100 Instrument Used: #15 blade Tissue Removed: fibrous, devitalized subcutaneous, biofilm, slough Severity: Fat Layer Exposed Amount of bleeding with debridement: Mild Bleeding Controlled with: Pressure Patient tolerated procedure: Patient tolerated procedure well - Additional Wound Wound debrided: plantar medial foot Laterality: Left Wound Grade/Stage: grade 3 Type of Debridement: Excisional debridement Anesthesia Used: 5% Lidocaine Gel Depth: in the subcutaneous layer Percentage of wound debrided: 100 Instrument Used: #15 blade Tissue Removed: fibrous, devitalized subcutaneous, biofilm, slough Severity: Fat Layer Exposed Amount of bleeding with debridement: Mild Bleeding Controlled with: Pressure Patient tolerated procedure: Patient tolerated procedure well Assessment/Plan Active Problems (Last Reviewed 03/30/18 @ 15:05 by Jocelyn Barlow) Dehiscence of closure of subcutaneous tissue (Chronic) Ulcer of right foot with fat layer exposed (Chronic) Chronic ulcer of left foot with fat layer exposed (Chronic) Type 2 diabetes mellitus with diabetic polyneuropathy (Chronic) Assessment: see above diagnoses Plan: I reviewed and discussed her care plan today. A subcutaneous excisional debridement was performed today as noted in the clinical panel to bilateral foot ulcer sites (3). The remaining sutures were removed from the right plantar foot and deeper granulation tissue is noted and this has helped progress this wound site. It is noted that her current ulcer site is a sequela of a previous grade 3 ulcer with infected tendon deep tissue bilateral foot and the infection has resolved after recent antibiotics and ongoing wound care plan. To change other ulcer site dressings with the Aquacel Ag / fibricol. I recommended application of advanced wound healing product, in the clinical setting. Prior authorization has been initiated, and she has been denied coverage for both epi fix and Apligraf. This is medically necessary to optimize ulcer healing and prevent limb loss. Baseline bloodwork reviewed and most recent A1C 12.9, referral to PCP and endocrinology. Her x-rays from last week were reviewed without evidence of osseous destruction, soft tissue emphysema or foreign body or other acute injuries. The patient was educated on the importance of diet on wound healing and instructed to increase protein and vitamin C intake. To use assistive devices. We will also consider total contact cast if she continues to struggle with this. Patient verbalized understanding. Patient will follow up at wound healing center in one week at the referred center. She is also a hyperbaric oxygen therapy candidate and we discussed the indications, benefits, risks, complications, anticipated healing time management. She confirmed that s he is not able to attend more than a couple sessions at most a week and is not able to proceed forward with this. I answered all of her questions. Her notes will be faxed to the referral Center for communication purposes.
== END 2018-06-19 23:59 ==
LOC: WC 13:00
PROVIDERS: Family Provider Internal Medicine; PCP Internal Medicine; Visit Provider Podiatrist
DX: E11.621 Type 2 diabetes mellitus with foot ulcer (principal); L97.522 Non-pressure chronic ulcer of other part of left foot with fat layer exposed; T81.31XA Disruption of external operation (surgical) wound, not elsewhere classified, initial encounter; Y83.8 Other surgical procedures as the cause of abnormal reaction of the patient, or of later complication, without mention of misadventure at the time of the procedure; L97.512 Non-pressure chronic ulcer of other part of right foot with fat layer exposed; E11.42 Type 2 diabetes mellitus with diabetic polyneuropathy; E11.65 Type 2 diabetes mellitus with hyperglycemia
CPT/HCPCS: 11042; 11045

== ENCOUNTER 2018-07-18 10:00 | Outpatient (RCR) | payer OTHER, SELFPAY | END 2018-07-20 23:59 | LOC: DC 10:00 | PROVIDERS: Family Provider Internal Medicine; PCP Internal Medicine; Visit Provider Internal Medicine | DX: E11.42 Type 2 diabetes mellitus with diabetic polyneuropathy (principal); E66.9 Obesity, unspecified; Z68.34 Body mass index [BMI] 34.0-34.9, adult; Z71.3 Dietary counseling and surveillance | CPT/HCPCS: 97803 ==

== ENCOUNTER → 2018-07-18 10:53 | Outpatient (CLI) | payer OTHER, SELFPAY ==
[2018-07-12 14:04] VITALS: BMI 36.7
--- NOTE | 2018-07-18 11:35 | RAD_ITS ---
STUDY: X-RAY - RIGHT FOOT CLINICAL: Female, 28 years old. Nonhealing ulcer TECHNIQUE: 3 view(s) of the foot. COMPARISON: None. FINDINGS: Normal talus, calcaneus, and tarsal bones. Normal visualized subtalar, talonavicular, calcaneocuboid, tarsal and tarsometatarsal articulations. Normal metatarsi. Normal metatarsophalangeal joint of the great toe. Normal tibial and fibular sesamoid bones. Normal interphalangeal joint of the great toe. Normal phalanges of the great toe. Normal second through fifth metatarsophalangeal joints. Normal interphalangeal joints and phalanges of the lesser toes. The soft tissue structures are unremarkable. RAD/Foot min 3 Views IMPRESSION: Normal x-ray examination of the foot. Electronically Signed: Delano Jules MD at 21:17 EST , Service support ,
[2018-07-18 12:37] LABS: Erythrocyte Sedimentation Rate 42 mm/hr (0-20)
[2018-07-18 12:45] LABS: Absolute Lymphocyte Count 2.54 X10^3/ul (0.83-4.51); Absolute Neutrophil Count 4.9 X10^3/uL (2.0-7.7); Basophil# 0.05 X10^3/uL; Basophil% 0.6 % (0-1); Differential Indicated SCAN CRITERIA MET; Eosinophil# 0.24 X10^3/uL; Eosinophils% 2.8 % (0-5); Hematocrit 35.7 % (37-47); Lymphocyte # 2.54 X10^3/ul (4.0); Lymphocyte % 29.5 % (19-41); Mean Corp Hgb Conc 30.8 g/gl (32-36); Mean Corpuscular Hgb 22.6 pg (27.0-32.0); Mean Corpuscular Volume 73.5 fL (81-99); Mean Platelet Vol. 8.8 fl (6.2-12.0); Monocyte# 0.82 X10^3/uL; Monocyte% 9.5 % (0-10); Neutrophil # 4.94 X10^3/uL (2.7-7.7); Neutrophil % 57.5 % (47-70); POSITIVE COUNT NO; POSITIVE DIFFERENTIAL NO; POSITIVE MORPHOLOGY YES; Platelet Count 344 K/mm3 (150-450); RBC Distribution Width CV 14.3 % (11.6-14.6); RBC Distribution Width SD 37.9 fl (35.1-43.9); Red Blood Count 4.86 M/mm3 (4.2-5.4); White Blood Count 8.6 K/mm3 (4.4-11.0)
[2018-07-18 13:05] LABS: Hypochromasia 1+; Microcytosis 1+; Ovalocyte RARE; Platelet Estimate ADEQUATE (ADEQ)
== END ==
PROVIDERS: Family Provider Internal Medicine; PCP Internal Medicine; Referring Provider Podiatrist; Visit Provider Podiatrist
DX: L97.519 Non-pressure chronic ulcer of other part of right foot with unspecified severity (principal); M86.9 Osteomyelitis, unspecified; L08.9 Local infection of the skin and subcutaneous tissue, unspecified
CPT/HCPCS: 36415; 73630; 85025; 85652; 86140

== ENCOUNTER 2018-07-19 14:00 | Outpatient (RCR) | payer OTHER, SELFPAY ==
[2018-06-20 01:00] VITALS: BP 143/83; PULSE 108; RESP 16; TEMP 37
[2018-06-28 14:12] VITALS: BP 138/80; PULSE 100; RESP 20; TEMP 36.2; BMI 36.7
--- NOTE | 2018-06-28 15:32 | PN.PCM_ITS ---
(1) Hallux limitus of right foot Status: Chronic Current Visit: Yes Code(s): M20.5X1 - Other deformities of toe(s) (acquired), right foot (2) Ulcer of right foot with fat layer exposed Status: Chronic Current Visit: Yes Code(s): L97.512 - Non-pressure chronic ulcer of other part of right foot with fat layer exposed (3) Chronic ulcer of left foot with fat layer exposed Status: Chronic Current Visit: Yes Code(s): L97.522 - Non-pressure chronic ulcer of other part of left foot with fat layer exposed (4) Type 2 diabetes mellitus with diabetic polyneuropathy Status: Chronic Current Visit: Yes Code(s): E11.42 - Type 2 diabetes mellitus with diabetic polyneuropathy Type of Wound Date of Service: 06/28/18 Chief Complaint: Nonhealing ulcers b/l feet History of Wound: This 28-year-old female with uncontrolled diabetes returns to clinic for follow-up of bilateral ulcers. She was away over winter break last month and followed up at a different wound care center. She has been applying Fibracol to the ulcer sites and has resumed walking and surgical shoes. She denies subjective fever, chill, nausea, vomiting. This may have caused the tissue to get as moist as it is today. She has been compliant with the dressing recommendations. When she starts classes again she is reporting that she is available and amenable to proceed with hyperbaric oxygen therapy. She denies odor or redness. It is noted that she had hyperbaric oxygen therapy sessions performed last year when she had a different ulcer site and did overall well. She did have an ear complication that resolved. She denies other significant medical changes since then she denies previous lung collapse or acute cardiac or respiratory conditions. Progress of Wound: Stable right foot with ulcer. Ulcer left foot improving. Ulcer right great toe stable - Physical Exam Vital Signs Temp Pulse Resp BP 97.1 F L 100 20 H 138/80 H 06/28/18 14:12 06/28/18 14:12 06/28/18 14:12 06/28/18 14:12 General: Alert, Oriented x3, Cooperative Extremities: No cyanosis, Capillary Refill Less than 3 Seconds, No Calf Tenderness - Negative Chiquita and Rockwell sign bilateral, Diminished Peripheral Pulses, Edema - Bilateral lower extremities Skin: Ulcer/ Wound - No purulence, erythema, streaking, odor, or acute signs of infection bilateral. All ulcer beds are granular without exposed tendon or bone or necrosis or maceration. The peripheral skin is atrophic. Wound Measurements and Assessment WC - Nurse 1 - General Ulcer Measurement Start: 06/28/18 14:12 Freq: Status: Active Protocol: Activity Type Activity Date Activity User E-Sign Co-Sign Detail Recorded Client Recorded Date Recorded By Document 06/28/18 14:12 RB [id number] 06/28/18 14:29 RB 06/28/18 14:12 Wound Center Nurse 1 [Ulcer Assessment] #4 RIGHT GREAT TOE MEDIAL -Combined with other wound No -Current Size (cm) - Length 0.5 -Current Size (cm) - Width 0.4 -Current Size (cm) - Depth 0.3 -Total Square Cm 0.20 -Photo Taken Yes -Tunneling No -Undermining/Tunneling No -Circular Undermining No -Exudate Amt Small -Exudate Type Serosanguineous -Wound Margin Thickened -Granulation Amt Small (1-33%) -Granulation Quality [place] -Slough/Fibrin Yes -Necrosis Amt Medium (34-66%) -Necrotic Tissue Type Adherent Slough -Structure Exposed N/A -Texture (Cheri-wound Skin Appearance) Callus -Moisture (Cheri-wound Skin Appearance Assessed ) -Color (Cheri-wound Skin Appearance) Assessed -Temperature (Cheri-wound Skin No Abnormality Appearance) (Pt Warm) -Tenderness on Palpation (Cheri-wound No Skin Appearance) -Ulcer Cleansing Wound Cleanser -Foul Odor after Cleansing No -Anesthetic Used 4% Lidocaine Solution #3 RIGHT FOOT PLANTAR -Combined with other wound No -Current Size (cm) - Length 6.2 -Current Size (cm) - Width 2.3 -Current Size (cm) - Depth 0.7 -Total Square Cm 14.26 -Photo Taken Yes -Tunneling No -Undermining/Tunneling No -Circular Undermining No -Exudate Amt Medium -Exudate Type Serosanguineous -Wound Margin Thickened -Granulation Amt Medium (34-66%) -Granulation Quality [place] -Slough/Fibrin Yes -Necrosis Amt Medium (34-66%) -Necrotic Tissue Type Adherent Slough -Structure Exposed N/A -Texture (Cheri-wound Skin Appearance) Callus -Moisture (Cheri-wound Skin Appearance Assessed ) -Color (Cheri-wound Skin Appearance) Assessed -Temperature (Cheri-wound Skin No Abnormality Appearance) (Pt Warm) -Tenderness on Palpation (Cheri-wound No Skin Appearance) -Ulcer Cleansing Wound Cleanser -Foul Odor after Cleansing No -Anesthetic Used 4% Lidocaine Solution #1 LEFT PLANTAR -Combined with other wound No -Current Size (cm) - Length 1.9 -Current Size (cm) - Width 1.4 -Current Size (cm) - Depth 0.6 -Total Square Cm 2.66 -Photo Taken Yes -Undermining/Tunneling Yes -Undermining/Tunneling Starts (O' 11 clock) -Undermining/Tunneling Ends (O'clock) 1 -Maximum Distance (cm) 0.4 -Exudate Amt Small -Exudate Type Serosanguineous -Wound Margin Thickened -Granulation Amt Medium (34-66%) -Granulation Quality [place] -Slough/Fibrin Yes -Necrosis Amt Medium (34-66%) -Necrotic Tissue Type Adherent Slough -Structure Exposed N/A -Texture (Cheri-wound Skin Appearance) Callus -Moisture (Cheri-wound Skin Appearance Assessed ) -Color (Cheri-wound Skin Appearance) Assessed -Temperature (Cheri-wound Skin No Abnormality Appearance) (Pt Warm) -Tenderness on Palpation (Cheri-wound No Skin Appearance) -Ulcer Cleansing Wound Cleanser -Foul Odor after Cleansing No -Anesthetic Used 4% Lidocaine Solution [Edema Assessment] -Lower Limb Edema Present Yes -Right Calf (cm) 41 -Right Ankle (cm) 25 -Left Calf (cm) 41 -Left Ankle (cm) 24.5 WC - Nurse 2 - General Ulcer CM Notes Start: 06/28/18 14:12 Freq: Status: Active Protocol: Activity Type Activity Date Activity User E-Sign Co-Sign Detail Recorded Client Recorded Date Recorded By Document 06/28/18 14:44 JF [id number] 06/28/18 14:47 AMMON 06/28/18 14:44 Wound Center Nurse 2 [Procedure/Treatment] #4 RIGHT GREAT TOE MEDIAL -Time 14:44 -Correct Patient Yes -Correct Side, Site, Position Yes -Correct Procedure Yes -Procedure Performed Yes -Type of Procedure Debridement -Clinical Debridement Subcutaneous -Post Debridement Size (cm) - Length 0.5 -Post Debridement Size (cm) - Width 0.5 -Post Debridement Size (cm) - Depth 0.1 -Total Square Cm 0.25 -Wound/Ulcer Outcome Not Healed -Ulcer Cleansing Rinsed/ Irrigated with Saline -Foul Odor after Cleansing No -Bioengineered Tissue No -Bleeding Controlled with Pressure -Offloading Yes -Type of Offloading Surgical Shoe -Treatment Response Procedure Tolerated Well #3 RIGHT FOOT PLANTAR -Time 14:45 -Correct Patient Yes -Correct Side, Site, Position Yes -Correct Procedure Yes -Procedure Performed Yes -Type of Procedure Debridement -Clinical Debridement Subcutaneous -Post Debridement Size (cm) - Length 2.4 -Post Debridement Size (cm) - Width 1.8 -Post Debridement Size (cm) - Depth 0.7 -Total Square Cm 4.32 -Wound/Ulcer Outcome Not Healed -Ulcer Cleansing Rinsed/ Irrigated with Saline -Foul Odor after Cleansing No -Bioengineered Tissue No -Bleeding Controlled with Pressure -Offloading Yes -Type of Offloading Surgical Shoe -Treatment Response Procedure Tolerated Well #1 LEFT PLANTAR -Time 14:45 -Correct Patient Yes -Correct Side, Site, Position Yes -Correct Procedure Yes -Procedure Performed Yes -Type of Procedure Debridement -Clinical Debridement Subcutaneous -Post Debridement Size (cm) - Length 5.8 -Post Debridement Size (cm) - Width 2.5 -Post Debridement Size (cm) - Depth 0.3 -Total Square Cm 14.50 -Wound/Ulcer Outcome Not Healed -Ulcer Cleansing Rinsed/ Irrigated with Saline -Foul Odor after Cleansing No -Bioengineered Tissue No -Bleeding Controlled with Pressure -Offloading Yes -Type of Offloading Surgical Shoe -Treatment Response Procedure Tolerated Well [See Physician Procedure note for Specifics] Pain Scale: 0-10 Numeric [Pain] -Is Patient Pain Free? Yes Musculoskeletal: No Tenderness to Palpation of Joints or Extremities, Muscle Wasting, - - Decreased loaded first metatarsal phalangeal joint range of motion right foot Neurological: - - Lack of normal epicritic sensation to light touch bilateral lower extremities consistent with neuropathy Psych/Mental Status: Normal Affect, Appropriate Debridement Note Post-Debridement Measurements/Treatment WC - Nurse 2 - General Ulcer CM Notes Start: 06/28/18 14:12 Freq: Status: Active Protocol: Activity Type Activity Date Activity User E-Sign Co-Sign Detail Recorded Client Recorded Date Recorded By Document 06/28/18 14:44 AMMON [id number] 06/28/18 14:47 AMMON 06/28/18 14:44 Wound Center Nurse 2 #4 RIGHT GREAT TOE MEDIAL -Time 14:44 -Correct Patient Yes -Correct Side, Site, Position Yes -Correct Procedure Yes -Procedure Performed Yes -Type of Procedure Debridement -Clinical Debridement Subcutaneous -Post Debridement Size (cm) - Length 0.5 -Post Debridement Size (cm) - Width 0.5 -Post Debridement Size (cm) - Depth 0.1 -Total Square Cm 0.25 -Wound/Ulcer Outcome Not Healed -Ulcer Cleansing Rinsed/ Irrigated with Saline -Foul Odor after Cleansing No -Bioengineered Tissue No -Bleeding Controlled with Pressure -Offloading Yes -Type of Offloading Surgical Shoe -Treatment Response Procedure Tolerated Well #3 RIGHT FOOT PLANTAR -Time 14:45 -Correct Patient Yes -Correct Side, Site, Position Yes -Correct Procedure Yes -Procedure Performed Yes -Type of Procedure Debridement -Clinical Debridement Subcutaneous -Post Debridement Size (cm) - Length 2.4 -Post Debridement Size (cm) - Width 1.8 -Post Debridement Size (cm) - Depth 0.7 -Total Square Cm 4.32 -Wound/Ulcer Outcome Not Healed -Ulcer Cleansing Rinsed/ Irrigated with Saline -Foul Odor after Cleansing No -Bioengineered Tissue No -Bleeding Controlled with Pressure -Offloading Yes -Type of Offloading Surgical Shoe -Treatment Response Procedure Tolerated Well #1 LEFT PLANTAR -Time 14:45 -Correct Patient Yes -Correct Side, Site, Position Yes -Correct Procedure Yes -Procedure Performed Yes -Type of Procedure Debridement -Clinical Debridement Subcutaneous -Post Debridement Size (cm) - Length 5.8 -Post Debridement Size (cm) - Width 2.5 -Post Debridement Size (cm) - Depth 0.3 -Total Square Cm 14.50 -Wound/Ulcer Outcome Not Healed -Ulcer Cleansing Rinsed/ Irrigated with Saline -Foul Odor after Cleansing No -Bioengineered Tissue No -Bleeding Controlled with Pressure -Offloading Yes -Type of Offloading Surgical Shoe -Treatment Response Procedure Tolerated Well Pain Scale: 0-10 Numeric Is Patient Pain Free? Yes Wound debrided: plantar hallux Laterality: Right Wound Grade/Stage: grade 1 Type of Debridement: Excisional debridement Anesthesia Used: 5% Lidocaine Gel Depth: in the subcutaneous layer Percentage of wound debrided: 100 Instrument Used: #15 blade Tissue Removed: fibrous, devitalized subcutaneous, biofilm, slough Severity: Fat Layer Exposed Amount of bleeding with debridement: Mild Bleeding Controlled with: Pressure Patient tolerated procedure well - Additional Wound Wound debrided: plantar metatarsal head region Laterality: Right Wound Grade/Stage: grade 3 Type of Debridement: Excisional debridement Anesthesia Used: 5% Lidocaine Gel Depth: in the subcutaneous layer Percentage of wound debrided: 100 Instrument Used: #15 blade Tissue Removed: fibrous, devitalized subcutaneous, biofilm, slough Severity: Fat Layer Exposed Amount of bleeding with debridement: Mild Bleeding Controlled with: Pressure Patient tolerated procedure: Patient tolerated procedure well - Additional Wound Wound debrided: plantar medial foot Laterality: Left Wound Grade/Stage: grade 3 Type of Debridement: Excisional debridement Anesthesia Used: 5% Lidocaine Gel Depth: in the subcutaneous layer Percentage of wound debrided: 100 Instrument Used: #15 blade Tissue Removed: fibrous, devitalized subcutaneous, biofilm, slough Severity: Fat Layer Exposed Amount of bleeding with debridement: Mild Bleeding Controlled with: Pressure Patient tolerated procedure: Patient tolerated procedure well Assessment/Plan Active Problems (Last Reviewed 03/30/18 @ 15:05 by Jocelyn Barlow) Hallux limitus of right foot (Chronic) Ulcer of right foot with fat layer exposed (Chronic) Chronic ulcer of left foot with fat layer exposed (Chronic) Type 2 diabetes mellitus with diabetic polyneuropathy (Chronic) Assessment: see above diagnoses Plan: I reviewed and discussed her care plan today. A subcutaneous excisional debridement was performed today as noted in the clinical pane to bilateral foot ulcer sites. It is noted that her current ulcer site is a sequela of a previous grade 3 ulcer with infected tendon deep tissue bilateral foot and the infection has resolved after recent antibiotics and ongoing wound care plan. To change other ulcer site dressings with the [employer]. I recommended application of advanced wound healing products to optimize healing and this has been denied currently by her insurance. Baseline bloodwork reviewed and most recent A1C 12.9, referral to PCP and endocrinology. Orders for updated blood work including CBC and CMP were ordered today, and the results are pending. Her previous x-rays were reviewed without evidence of osseous destruction, soft tissue emphysema or foreign body or other acute injuries. The patient was educated on the importance of diet on wound healing and instructed to increase protein and vitamin C intake. Compliance was discussed and it is noted she does have some sharing movement of her wound dressings with suggest that some pressure and friction is occurring. To use assistive devices. She will resume wheelchair use. I educated her that walking on the ulcer sites and the surgical shoe will not allow appropriate healing. If she needs to transfer or ambulate and is not able to keep weight off of it she was advised to put the weight on her heel to allow ulcer healing. The patient verbalized understanding. Patient will follow up at wound healing center in one week or sooner if needed. She is also a hyperbaric oxygen therapy candidate and we discussed the indications, benefits, risks, complications, anticipated healing time management. She confirmed that she now aBle with her upcoming class schedule. I reviewed her EKG and chest x-ray from February 2018. If confirmation is at attained for insurance coverage I do recommend hyperbaric oxygen safety consultation. I answered her questions. To return to clinic in 1 week or call sooner if she has any questions or concerns.
[2018-06-28 18:14] LABS: Absolute Lymphocyte Count 2.58 X10^3/ul (0.83-4.51); Absolute Neutrophil Count 6.2 X10^3/uL (2.0-7.7); Basophil# 0.03 X10^3/uL; Basophil% 0.3 % (0-1); Eosinophil# 0.13 X10^3/uL; Eosinophils% 1.4 % (0-5); Hematocrit 30.8 % (37-47); Hemoglobin 9.5 g/dl (12.0-15.0); Lymphocyte # 2.58 X10^3/ul (4.0); Lymphocyte % 26.8 % (19-41); Mean Corp Hgb Conc 30.8 g/gl (32-36); Mean Corpuscular Hgb 23.4 pg (27.0-32.0); Mean Corpuscular Volume 75.9 fL (81-99); Monocyte% 7.3 % (0-10); Neutrophil # 6.15 X10^3/uL (2.7-7.7); Platelet Count 368 K/mm3 (150-450); RBC Distribution Width CV 14.5 % (11.6-14.6); Red Blood Count 4.06 M/mm3 (4.2-5.4); White Blood Count 9.6 K/mm3 (4.4-11.0)
[2018-06-28 18:34] LABS: POSITIVE COUNT NO; POSITIVE DIFFERENTIAL NO; POSITIVE MORPHOLOGY NO
[2018-06-28 18:59] LABS: Albumin, Serum 3.3 g/dL (3.2-5.0); BUN 12 mg/dL (7-18); BUN/Creat Ratio 18.4 RATIO (10-20); Creatinine, Serum 0.65 mg/dL (0.55-1.02); EST Glomerular Filtration Rate 115 mL/min (>60); Est Glom Filt Rate - Afr Amer 139 mL/min (>60); Estimated Creatinine Clearance 139.34 ml/min; Glucose 237 mg/dL (74-106); Protein, Total 7.5 g/dL (6.4-8.2)
[2018-06-28 19:00] LABS: ALB/GLOB Ratio 0.8 RATIO (0.9-2.4); AST(SGOT) 6 U/L (15-37); Alanine Aminotransfer ALT/SGPT 18 U/L (13-56); Alkaline Phosphatase 74 U/L (45-117); Anion Gap 9 (5-15); Calcium,Total 8.5 mg/dL (8.5-10.1); Chloride 104 mmol/L (98-107); Globulin 4.2 g/dL (2.2-4.2); Potassium 4.1 mmol/L (3.5-5.1); Sodium Level 139 mmol/L (136-145)
[2018-07-05 14:14] VITALS: BP 132/75; PULSE 104; RESP 20; TEMP 37; BMI 36.7
--- NOTE | 2018-07-05 16:24 | PCM.WC.PN ---
(1) Chronic ulcer of left foot with fat layer exposed Status: Chronic Current Visit: Yes Code(s): L97.522 - Non-pressure chronic ulcer of other part of left foot with fat layer exposed (2) Ulcer of right foot with fat layer exposed Status: Chronic Current Visit: Yes Code(s): L97.512 - Non-pressure chronic ulcer of other part of right foot with fat layer exposed (3) Hallux limitus of right foot Status: Chronic Current Visit: Yes Code(s): M20.5X1 - Other deformities of toe(s) (acquired), right foot (4) Type 2 diabetes mellitus with diabetic polyneuropathy Status: Chronic Current Visit: Yes Code(s): E11.42 - Type 2 diabetes mellitus with diabetic polyneuropathy Type of Wound Date of Service: 07/05/18 Chief Complaint: Nonhealing ulcers b/l feet History of Wound: This 28-year-old female with uncontrolled diabetes returns to clinic for follow-up of bilateral ulcers. She was away over winter break last month and followed up at a different wound care center. Her wheelchair frozen the back of her truck and she admits she had to walk to 3 classes and her foot today and now it is swollen and inflamed. She denies subjective fever, chill, nausea, vomiting. When she starts classes again she is reporting that she is available and amenable to proceed with hyperbaric oxygen therapy. Insurance prior authorization is pending. She denies odor or redness. It is noted that she had hyperbaric oxygen therapy sessions performed last year when she had a different ulcer site and did overall well. She did have an ear complication that resolved. She denies other significant medical changes since then she denies previous lung collapse or acute cardiac or respiratory conditions. Progress of Wound: Stable right foot with ulcer. Ulcer left foot improving. Ulcer right great toe stable - Physical Exam Vital Signs Temp Pulse Resp BP 98.6 F 104 H 20 H 132/75 H 07/05/18 14:14 07/05/18 14:14 07/05/18 14:14 07/05/18 14:14 General: Alert, Oriented x3, Cooperative Extremities: No cyanosis, Capillary Refill Less than 3 Seconds, No Calf Tenderness - Negative Chiquita and Rockwell sign bilateral, Diminished Peripheral Pulses, Edema - Mild bilateral lower extremities Skin: Ulcer/ Wound - No purulence, erythema, streaking, odor, or infection, necrosis. There is inflammation and edema to the right forefoot. I suspect this is from increased walking all day at classes out in the cold weather however she also understands this may be early cellulitis and will monitor this very closely. There is no interdigital maceration bilateral Wound Measurements and Assessment WC - Nurse 1 - General Ulcer Measurement Start: 06/28/18 14:12 Freq: Status: Active Protocol: Activity Type Activity Date Activity User E-Sign Co-Sign Detail Recorded Client Recorded Date Recorded By Document 07/05/18 14:14 DL [id number] 07/05/18 14:29 DL 07/05/18 14:14 Wound Center Nurse 1 [Ulcer Assessment] #4 RIGHT GREAT TOE MEDIAL -Current Size (cm) - Length 0.4 -Current Size (cm) - Width 0.3 -Current Size (cm) - Depth 0.3 -Total Square Cm 0.12 -Photo Taken No -Maximum Distance #2 (cm) 0.2 -Circular Undermining Yes -Exudate Amt Small -Exudate Type Serosanguineous -Wound Margin Thickened -Granulation Amt Small (1-33%) -Granulation Quality Red -Necrosis Amt Small (1-33%) -Necrotic Tissue Type Adherent Slough -Structure Exposed N/A -Texture (Cheri-wound Skin Appearance) Callus Scarring -Moisture (Cheri-wound Skin Appearance Dry/Scaly ) -Color (Cheri-wound Skin Appearance) No Abnormality -Temperature (Cheri-wound Skin No Abnormality Appearance) (Pt Warm) -Tenderness on Palpation (Cheri-wound No Skin Appearance) -Ulcer Cleansing Wound Cleanser -Foul Odor after Cleansing No -Anesthetic Used 5% Lidocaine Gel #3 RIGHT FOOT PLANTAR -Current Size (cm) - Length 1.8 -Current Size (cm) - Width 1.1 -Current Size (cm) - Depth 0.5 -Total Square Cm 1.98 -Photo Taken No -Exudate Amt Small -Exudate Type Serosanguineous -Wound Margin Thickened -Granulation Amt Large (67-100%) -Granulation Quality Red -Necrosis Amt Small (1-33%) -Necrotic Tissue Type Adherent Slough -Structure Exposed N/A -Texture (Cheri-wound Skin Appearance) Callus Localized Edema Scarring -Moisture (Cheri-wound Skin Appearance Dry/Scaly ) -Color (Cheri-wound Skin Appearance) Erythema Rubor -Temperature (Cheri-wound Skin No Abnormality Appearance) (Pt Warm) -Tenderness on Palpation (Cheri-wound No Skin Appearance) -Ulcer Cleansing Wound Cleanser -Foul Odor after Cleansing No -Anesthetic Used 5% Lidocaine Gel #1 LEFT PLANTAR -Current Size (cm) - Length 5.5 -Current Size (cm) - Width 2 -Current Size (cm) - Depth 0.5 -Total Square Cm 11.0 -Photo Taken No -Exudate Amt Medium -Exudate Type Serosanguineous -Wound Margin Thickened -Granulation Amt Large (67-100%) -Granulation Quality Red -Necrosis Amt Small (1-33%) -Necrotic Tissue Type Adherent Slough -Structure Exposed N/A -Texture (Cheri-wound Skin Appearance) Localized Edema Scarring -Moisture (Cheri-wound Skin Appearance Dry/Scaly ) -Color (Cheri-wound Skin Appearance) Erythema Rubor -Temperature (Cheri-wound Skin No Abnormality Appearance) (Pt Warm) -Tenderness on Palpation (Cheri-wound No Skin Appearance) -Ulcer Cleansing Wound Cleanser -Foul Odor after Cleansing No -Anesthetic Used 5% Lidocaine Gel [Edema Assessment] -Right Calf (cm) 40 -Right Ankle (cm) 23 -Left Calf (cm) 40 -Left Ankle (cm) 24 WC - Nurse 2 - General Ulcer CM Notes Start: 06/28/18 14:12 Freq: Status: Active Protocol: Activity Type Activity Date Activity User E-Sign Co-Sign Detail Recorded Client Recorded Date Recorded By Document 07/05/18 14:55 JF [id number] 07/05/18 15:02 AMMON 07/05/18 14:55 Wound Center Nurse 2 [Procedure/Treatment] #4 RIGHT GREAT TOE MEDIAL -Time 15:00 -Correct Patient Yes -Correct Side, Site, Position Yes -Correct Procedure Yes -Procedure Performed Yes -Type of Procedure Debridement -Clinical Debridement Subcutaneous -Post Debridement Size (cm) - Length 0.5 -Post Debridement Size (cm) - Width 0.3 -Post Debridement Size (cm) - Depth 0.3 -Total Square Cm 0.15 -Wound/Ulcer Outcome Not Healed -Ulcer Cleansing Rinsed/ Irrigated with Saline -Foul Odor after Cleansing No -Bioengineered Tissue No -Bleeding Controlled with Pressure -Offloading Yes -Type of Offloading Surgical Shoe -Treatment Response Procedure Tolerated Well #3 RIGHT FOOT PLANTAR -Time 14:59 -Correct Patient Yes -Correct Side, Site, Position Yes -Correct Procedure Yes -Procedure Performed Yes -Type of Procedure Debridement -Clinical Debridement Subcutaneous -Post Debridement Size (cm) - Length 1.8 -Post Debridement Size (cm) - Width 1.2 -Post Debridement Size (cm) - Depth 0.3 -Total Square Cm 2.16 -Wound/Ulcer Outcome Not Healed -Ulcer Cleansing Rinsed/ Irrigated with Saline -Foul Odor after Cleansing No -Bioengineered Tissue No -Bleeding Controlled with Pressure -Offloading Yes -Type of Offloading Surgical Shoe -Treatment Response Procedure Tolerated Well #1 LEFT PLANTAR -Time 14:55 -Correct Patient Yes -Correct Side, Site, Position Yes -Correct Procedure Yes -Procedure Performed Yes -Type of Procedure Debridement -Clinical Debridement Subcutaneous -Post Debridement Size (cm) - Length 5.5 -Post Debridement Size (cm) - Width 2.1 -Post Debridement Size (cm) - Depth 0.5 -Total Square Cm 11.55 -Wound/Ulcer Outcome Not Healed -Ulcer Cleansing Rinsed/ Irrigated with Saline -Foul Odor after Cleansing No -Bioengineered Tissue No -Bleeding Controlled with Pressure -Offloading Yes -Type of Offloading Surgical Shoe -Treatment Response Procedure Tolerated Well [See Physician Procedure note for Specifics] Pain Scale: 0-10 Numeric [Pain] -Is Patient Pain Free? Yes Musculoskeletal: No Tenderness to Palpation of Joints or Extremities, Muscle Wasting Neurological: - - Lack of normal epicritic sensation light touch bilateral lower extremities Psych/Mental Status: Normal Affect, Appropriate Debridement Note Post-Debridement Measurements/Treatment WC - Nurse 2 - General Ulcer CM Notes Start: 06/28/18 14:12 Freq: Status: Active Protocol: Activity Type Activity Date Activity User E-Sign Co-Sign Detail Recorded Client Recorded Date Recorded By Document 06/28/18 14:44 JF [id number] 06/28/18 14:47 JF Document 07/05/18 14:55 JF [id number] 07/05/18 15:02 JF 06/28/18 07/05/18 14:44 14:55 Wound Center Nurse 2 #4 RIGHT GREAT TOE MEDIAL -Time 14:44 15:00 -Correct Patient Yes Yes -Correct Side, Site, Position Yes Yes -Correct Procedure Yes Yes -Procedure Performed Yes Yes -Type of Procedure Debridement Debridement -Clinical Debridement Subcutaneous Subcutaneous -Post Debridement Size (cm) - Length 0.5 0.5 -Post Debridement Size (cm) - Width 0.5 0.3 -Post Debridement Size (cm) - Depth 0.1 0.3 -Total Square Cm 0.25 0.15 -Wound/Ulcer Outcome Not Healed Not Healed -Ulcer Cleansing Rinsed/ Rinsed/ Irrigated with Irrigated with Saline Saline -Foul Odor after Cleansing No No -Bioengineered Tissue No No -Bleeding Controlled with Pressure Pressure -Offloading Yes Yes -Type of Offloading Surgical Shoe Surgical Shoe -Treatment Response Procedure Procedure Tolerated Well Tolerated Well #3 RIGHT FOOT PLANTAR -Time 14:45 14:59 -Correct Patient Yes Yes -Correct Side, Site, Position Yes Yes -Correct Procedure Yes Yes -Procedure Performed Yes Yes -Type of Procedure Debridement Debridement -Clinical Debridement Subcutaneous Subcutaneous -Post Debridement Size (cm) - Length 2.4 1.8 -Post Debridement Size (cm) - Width 1.8 1.2 -Post Debridement Size (cm) - Depth 0.7 0.3 -Total Square Cm 4.32 2.16 -Wound/Ulcer Outcome Not Healed Not Healed -Ulcer Cleansing Rinsed/ Rinsed/ Irrigated with Irrigated with Saline Saline -Foul Odor after Cleansing No No -Bioengineered Tissue No No -Bleeding Controlled with Pressure Pressure -Offloading Yes Yes -Type of Offloading Surgical Shoe Surgical Shoe -Treatment Response Procedure Procedure Tolerated Well Tolerated Well #1 LEFT PLANTAR -Time 14:45 14:55 -Correct Patient Yes Yes -Correct Side, Site, Position Yes Yes -Correct Procedure Yes Yes -Procedure Performed Yes Yes -Type of Procedure Debridement Debridement -Clinical Debridement Subcutaneous Subcutaneous -Post Debridement Size (cm) - Length 5.8 5.5 -Post Debridement Size (cm) - Width 2.5 2.1 -Post Debridement Size (cm) - Depth 0.3 0.5 -Total Square Cm 14.50 11.55 -Wound/Ulcer Outcome Not Healed Not Healed -Ulcer Cleansing Rinsed/ Rinsed/ Irrigated with Irrigated with Saline Saline -Foul Odor after Cleansing No No -Bioengineered Tissue No No -Bleeding Controlled with Pressure Pressure -Offloading Yes Yes -Type of Offloading Surgical Shoe Surgical Shoe -Treatment Response Procedure Procedure Tolerated Well Tolerated Well Pain Scale: 0-10 Numeric Is Patient Pain Free? Yes Yes Wound debrided: plantar foot Laterality: Left Wound Grade/Stage: grade 3 Type of Debridement: Excisional debridement Anesthesia Used: 5% Lidocaine Gel Depth: in the subcutaneous layer Percentage of wound debrided: 100 Instrument Used: #15 blade Tissue Removed: fibrous, devitalized subcutaneous, biofilm, slough Severity: Fat Layer Exposed Amount of bleeding with debridement: Mild Bleeding Controlled with: Pressure Patient tolerated procedure well - Additional Wound Wound debrided: plantar hallux Laterality: Right Wound Grade/Stage: grade 1 Type of Debridement: Excisional debridement Anesthesia Used: 5% Lidocaine Gel Depth: in the subcutaneous layer Percentage of wound debrided: 100 Instrument Used: #15 blade Tissue Removed: fibrous, devitalized subcutaneous, biofilm, slough Severity: Fat Layer Exposed Amount of bleeding with debridement: Mild Bleeding Controlled with: Pressure Patient tolerated procedure: Patient tolerated procedure well - Additional Wound Wound debrided: plantar foot Laterality: Right Wound Grade/Stage: grade 3 Type of Debridement: Excisional debridement Anesthesia Used: 5% Lidocaine Gel Depth: in the subcutaneous layer Percentage of wound debrided: 100 Instrument Used: #15 blade Tissue Removed: fibrous, devitalized subcutaneous, biofilm, slough Severity: Fat Layer Exposed Amount of bleeding with debridement: Mild Bleeding Controlled with: Pressure Patient tolerated procedure: Patient tolerated procedure well Assessment/Plan Active Problems (Last Reviewed 03/30/18 @ 15:05 by Jocelyn Barlow) Hallux limitus of right foot (Chronic) Ulcer of right foot with fat layer exposed (Chronic) Chronic ulcer of left foot with fat layer exposed (Chronic) Type 2 diabetes mellitus with diabetic polyneuropathy (Chronic) Assessment: see above diagnoses Plan: I reviewed and discussed her care plan today. A subcutaneous excisional debridement was performed today as noted in the clinical pane to bilateral foot ulcer sites. It is noted that her current ulcer site is a sequela of a previous grade 3 ulcer with infected tendon deep tissue bilateral foot and the infection has resolved after recent antibiotics and ongoing wound care plan. To change other ulcer site dressings with the Aquacel Ag. I recommended application of advanced wound healing products to optimize healing and this has been denied currently by her insurance. Baseline bloodwork reviewed and most recent A1C 12.9, referral to PCP and endocrinology. Orders for updated blood work including CBC and CMP were ordered today, and the results are pending. Her previous x-rays were reviewed without evidence of osseous destruction, soft tissue emphysema or foreign body or other acute injuries. The patient was educated on the importance of diet on wound healing and instructed to increase protein and vitamin C intake. Compliance was discussed and it is noted she does have some sharing movement of her wound dressings with suggest that some pressure and friction is occurring. To use assistive devices. She will resume wheelchair use. I educated her that walking on the ulcer sites and the surgical shoe will not allow appropriate healing. If she needs to transfer or ambulate and is not able to keep weight off of it she was advised to put the weight on her heel to allow ulcer healing. The patient verbalized understanding. Patient will follow up at wound healing center in one week or sooner if needed. She is also a hyperbaric oxygen therapy candidate and we discussed the indications, benefits, risks, complications, anticipated healing time management. She confirmed that she now aBle with her upcoming class schedule. I reviewed her EKG and chest x-ray from February 2018. If confirmation is at attained for insurance coverage I do recommend hyperbaric oxygen safety consultation. The insurance prior authorization still pending. I answered her questions. To return to clinic in 1 week or call sooner if she has any questions or concerns.
[2018-07-12 14:04] VITALS: BP 163/82; PULSE 107; RESP 16; TEMP 36.6; BMI 36.7
--- NOTE | 2018-07-12 17:08 | PCM.WC.PN ---
(1) Abscess of right foot Status: Acute Current Visit: Yes Code(s): L02.611 - Cutaneous abscess of right foot (2) Chronic ulcer of left foot with fat layer exposed Status: Chronic Current Visit: Yes Code(s): L97.522 - Non-pressure chronic ulcer of other part of left foot with fat layer exposed (3) Ulcer of right foot with fat layer exposed Status: Chronic Current Visit: Yes Code(s): L97.512 - Non-pressure chronic ulcer of other part of right foot with fat layer exposed (4) Hallux limitus of right foot Status: Chronic Current Visit: Yes Code(s): M20.5X1 - Other deformities of toe(s) (acquired), right foot (5) Type 2 diabetes mellitus with diabetic polyneuropathy Status: Chronic Current Visit: Yes Code(s): E11.42 - Type 2 diabetes mellitus with diabetic polyneuropathy Type of Wound Date of Service: 07/12/18 Chief Complaint: Nonhealing ulcers b/l feet History of Wound: This 28-year-old female with uncontrolled diabetes returns to clinic for follow-up of bilateral ulcers. She was able to get her wheelchair out of her truck. She denies current subjective fever, chill, nausea, vomiting. On Tuesday she noticed worse redness to the right toe and her foot spontaneously drained on its own. She presented to the emergency room which a culture was obtained and she was started on oral antibiotics including ciprofloxacin and Bactrim. She denies diarrhea. And the swelling in her right foot has started to decrease and she has been on antibiotics. Progress of Wound: Stable right foot with ulcer. Ulcer left foot improving. Ulcer right great toe stable - Physical Exam Vital Signs Temp Pulse Resp BP 98 F 107 H 16 163/82 H 07/12/18 14:04 07/12/18 14:04 07/12/18 14:04 07/12/18 14:04 General: Alert, Oriented x3, Cooperative Extremities: No cyanosis, Capillary Refill Less than 3 Seconds, No Calf Tenderness - Negative Chiquita and Rockwell sign bilateral, Diminished Peripheral Pulses, Edema - Bilateral lower extremities, - - Dorsal contraction of lesser digits and prominent metatarsal heads. No pain on palpation to recently drained abscess site Skin: Ulcer/ Wound - No purulence, odor maceration or mickey necrosis noted. There is erythema induration and edema to the dorsal right foot there is deep probing that communicates the plantar ulcer site from the dorsal aspect. Compartments remain soft to palpate. There is no extension of the streaking or intensity of redness compared to last week. The peripheral skin is hairless and atrophic bilateral. There is significant callus formation around all plantar ulcer sites Wound Measurements and Assessment WC - Nurse 1 - General Ulcer Measurement Start: 06/28/18 14:12 Freq: Status: Active Protocol: Activity Type Activity Date Activity User E-Sign Co-Sign Detail Recorded Client Recorded Date Recorded By Document 07/12/18 14:04 [facility] [id number] 07/12/18 14:17 [facility] 07/12/18 14:04 Wound Center Nurse 1 [Ulcer Assessment] #6- RT FOOT DORSAL -Combined with other wound No -Current Size (cm) - Length 0.8 -Current Size (cm) - Width 0.6 -Current Size (cm) - Depth 0.1 -Total Square Cm 0.48 -Date of Last Picture (Recall this 07/12/18 field) -Photo Taken Yes -Epithelialization None Present -Tunneling No -Undermining/Tunneling No -Circular Undermining No -Exudate Amt Small -Exudate Type Serosanguineous -Wound Margin Flat & Intact -Granulation Amt None Present (0 %) -Slough/Fibrin Yes -Necrosis Amt Large (67-100%) -Necrotic Tissue Type Adherent Slough -Texture (Cheri-wound Skin Appearance) Localized Edema -Moisture (Cheri-wound Skin Appearance Assessed ) -Color (Cheri-wound Skin Appearance) Erythema -Temperature (Cheri-wound Skin No Abnormality Appearance) (Pt Warm) -Tenderness on Palpation (Cheri-wound Yes Skin Appearance) -Ulcer Cleansing Wound Cleanser -Foul Odor after Cleansing No -Anesthetic Used 4% Lidocaine Solution #4 RIGHT GREAT TOE MEDIAL -Combined with other wound No -Current Size (cm) - Length 0.2 -Current Size (cm) - Width 0.1 -Current Size (cm) - Depth 0.3 -Total Square Cm 0.02 -Date of Last Picture (Recall this 07/12/18 field) -Photo Taken Yes -Epithelialization None Present -Tunneling No -Undermining/Tunneling Yes -Undermining/Tunneling Starts (O' 12 clock) -Undermining/Tunneling Ends (O'clock) 12 -Maximum Distance (cm) 0.4 -Circular Undermining No -Wound Margin Flat & Intact -Granulation Amt Large (67-100%) -Granulation Quality Red -Slough/Fibrin Yes -Necrosis Amt Small (1-33%) -Necrotic Tissue Type Eschar -Texture (Cheri-wound Skin Appearance) Callus -Moisture (Cheri-wound Skin Appearance Dry/Scaly ) -Color (Cheri-wound Skin Appearance) Assessed -Temperature (Cheri-wound Skin No Abnormality Appearance) (Pt Warm) -Tenderness on Palpation (Cheri-wound No Skin Appearance) -Ulcer Cleansing Wound Cleanser -Foul Odor after Cleansing No -Anesthetic Used 4% Lidocaine Solution #3 RIGHT FOOT PLANTAR -Combined with other wound No -Current Size (cm) - Length 2.5 -Current Size (cm) - Width 1.5 -Current Size (cm) - Depth 0.3 -Total Square Cm 3.75 -Date of Last Picture (Recall this 07/12/18 field) -Photo Taken Yes -Epithelialization None Present -Tunneling No -Undermining/Tunneling No -Circular Undermining No -Exudate Amt Medium -Exudate Type Serosanguineous -Wound Margin Thickened -Granulation Amt Large (67-100%) -Granulation Quality Pale Red -Slough/Fibrin Yes -Necrosis Amt Small (1-33%) -Necrotic Tissue Type Adherent Slough -Texture (Cheri-wound Skin Appearance) Callus Scarring -Moisture (Cheri-wound Skin Appearance Maceration ) Dry/Scaly -Color (Cheri-wound Skin Appearance) Palor -Temperature (Cheri-wound Skin No Abnormality Appearance) (Pt Warm) -Tenderness on Palpation (Cheri-wound No Skin Appearance) -Ulcer Cleansing Wound Cleanser -Foul Odor after Cleansing No -Anesthetic Used 4% Lidocaine Solution #1 LEFT PLANTAR -Combined with other wound No -Current Size (cm) - Length 5.6 -Current Size (cm) - Width 2.4 -Current Size (cm) - Depth 0.8 -Total Square Cm 13.44 -Date of Last Picture (Recall this 07/12/18 field) -Photo Taken Yes -Epithelialization Small 1-33% -Tunneling No -Undermining/Tunneling Yes -Undermining/Tunneling Starts (O' 1 clock) -Undermining/Tunneling Ends (O'clock) 3 -Maximum Distance (cm) 0.4 -Circular Undermining No -Exudate Amt Medium -Exudate Type Serosanguineous -Wound Margin Distinct, Outline Attached -Granulation Amt Large (67-100%) -Granulation Quality Pale Red -Slough/Fibrin Yes -Necrosis Amt Small (1-33%) -Necrotic Tissue Type Adherent Slough -Texture (Cheri-wound Skin Appearance) Callus Scarring -Moisture (Cheri-wound Skin Appearance Dry/Scaly ) -Color (Cheri-wound Skin Appearance) Assessed -Temperature (Cheri-wound Skin No Abnormality Appearance) (Pt Warm) -Tenderness on Palpation (Cheri-wound No Skin Appearance) -Ulcer Cleansing Wound Cleanser -Foul Odor after Cleansing No -Anesthetic Used 4% Lidocaine Solution [Edema Assessment] -Lower Limb Edema Present Yes -Right Calf (cm) 41 -Right Ankle (cm) 25.2 -Left Calf (cm) 41.3 -Left Ankle (cm) 24.8 WC - Nurse 2 - General Ulcer CM Notes Start: 06/28/18 14:12 Freq: Status: Active Protocol: Activity Type Activity Date Activity User E-Sign Co-Sign Detail Recorded Client Recorded Date Recorded By Document 07/12/18 14:27 [id number] 07/12/18 14:38 07/12/18 14:27 Wound Center Nurse 2 [Procedure/Treatment] #6- RT FOOT DORSAL -Time 14:30 -Correct Patient Yes -Correct Side, Site, Position Yes -Correct Procedure Yes -Procedure Performed Yes -Type of Procedure Debridement -Clinical Debridement Subcutaneous -Post Debridement Size (cm) - Length 0.8 -Post Debridement Size (cm) - Width 0.8 -Post Debridement Size (cm) - Depth 0.1 -Total Square Cm 0.64 -Wound/Ulcer Outcome Not Healed -Ulcer Cleansing Rinsed/ Irrigated with Saline -Foul Odor after Cleansing No -Bioengineered Tissue No -Bleeding Controlled with Pressure -Offloading Yes -Type of Offloading Surgical Shoe -Treatment Response Procedure Tolerated Well #4 RIGHT GREAT TOE MEDIAL -Time 14:31 -Correct Patient Yes -Correct Side, Site, Position Yes -Correct Procedure Yes -Procedure Performed Yes -Type of Procedure Debridement -Clinical Debridement Subcutaneous -Post Debridement Size (cm) - Length 0.3 -Post Debridement Size (cm) - Width 0.2 -Post Debridement Size (cm) - Depth 0.3 -Total Square Cm 0.06 -Wound/Ulcer Outcome Not Healed -Ulcer Cleansing Rinsed/ Irrigated with Saline -Foul Odor after Cleansing No -Bioengineered Tissue No -Bleeding Controlled with Pressure -Offloading Yes -Type of Offloading Surgical Shoe -Treatment Response Procedure Tolerated Well #3 RIGHT FOOT PLANTAR -Time 14:31 -Correct Patient Yes -Correct Side, Site, Position Yes -Correct Procedure Yes -Procedure Performed Yes -Type of Procedure Debridement -Clinical Debridement Subcutaneous -Post Debridement Size (cm) - Length 2.5 -Post Debridement Size (cm) - Width 1.6 -Post Debridement Size (cm) - Depth 0.3 -Total Square Cm 4.00 -Wound/Ulcer Outcome Not Healed -Ulcer Cleansing Rinsed/ Irrigated with Saline -Foul Odor after Cleansing No -Bioengineered Tissue No -Bleeding Controlled with Pressure -Offloading Yes -Type of Offloading Surgical Shoe -Treatment Response Procedure Tolerated Well #1 LEFT PLANTAR -Time 14:32 -Correct Patient Yes -Correct Side, Site, Position Yes -Correct Procedure Yes -Procedure Performed Yes -Type of Procedure Debridement -Clinical Debridement Subcutaneous -Post Debridement Size (cm) - Length 5.6 -Post Debridement Size (cm) - Width 2.5 -Post Debridement Size (cm) - Depth 0.8 -Total Square Cm 14.00 -Wound/Ulcer Outcome Not Healed -Ulcer Cleansing Rinsed/ Irrigated with Saline -Foul Odor after Cleansing No -Bioengineered Tissue No -Bleeding Controlled with Pressure -Offloading Yes -Type of Offloading Surgical Shoe -Treatment Response Procedure Tolerated Well [See Physician Procedure note for Specifics] Pain Scale: 0-10 Numeric [Pain] -Is Patient Pain Free? Yes Musculoskeletal: No Tenderness to Palpation of Joints or Extremities, Muscle Wasting, - - Decreased loaded first metatarsal phalangeal joint range of motion right foot Neurological: - - Lack of epicritic sensation light touch bilateral lower extremities Psych/Mental Status: Normal Affect, Appropriate Debridement Note Post-Debridement Measurements/Treatment WC - Nurse 2 - General Ulcer CM Notes Start: 06/28/18 14:12 Freq: Status: Active Protocol: Activity Type Activity Date Activity User E-Sign Co-Sign Detail Recorded Client Recorded Date Recorded By Document 06/28/18 14:44 [email or web address] [id number] 06/28/18 14:47 Document 07/05/18 14:55 [id number] 07/05/18 15:02 Document 07/12/18 14:27 [id number] 07/12/18 14:38 06/28/18 07/05/18 07/12/18 14:44 14:55 14:27 Wound Center Nurse 2 #6- RT FOOT DORSAL -Time 14:30 -Correct Patient Yes -Correct Side, Site, Position Yes -Correct Procedure Yes -Procedure Performed Yes -Type of Procedure Debridement -Clinical Debridement Subcutaneous -Post Debridement Size (cm) - Length 0.8 -Post Debridement Size (cm) - Width 0.8 -Post Debridement Size (cm) - Depth 0.1 -Total Square Cm 0.64 -Wound/Ulcer Outcome Not Healed -Ulcer Cleansing Rinsed/ Irrigated with Saline -Foul Odor after Cleansing No -Bioengineered Tissue No -Bleeding Controlled with Pressure -Offloading Yes -Type of Offloading Surgical Shoe -Treatment Response Procedure Tolerated Well #4 RIGHT GREAT TOE MEDIAL -Time 14:44 15:00 14:31 -Correct Patient Yes Yes Yes -Correct Side, Site, Position Yes Yes Yes -Correct Procedure Yes Yes Yes -Procedure Performed Yes Yes Yes -Type of Procedure Debridement Debridement Debridement -Clinical Debridement Subcutaneous Subcutaneous Subcutaneous -Post Debridement Size (cm) - Length 0.5 0.5 0.3 -Post Debridement Size (cm) - Width 0.5 0.3 0.2 -Post Debridement Size (cm) - Depth 0.1 0.3 0.3 -Total Square Cm 0.25 0.15 0.06 -Wound/Ulcer Outcome Not Healed Not Healed Not Healed -Ulcer Cleansing Rinsed/ Rinsed/ Rinsed/ Irrigated with Irrigated with Irrigated with Saline Saline Saline -Foul Odor after Cleansing No No No -Bioengineered Tissue No No No -Bleeding Controlled with Pressure Pressure Pressure -Offloading Yes Yes Yes -Type of Offloading Surgical Shoe Surgical Shoe Surgical Shoe -Treatment Response Procedure Procedure Procedure Tolerated Well Tolerated Well Tolerated Well #3 RIGHT FOOT PLANTAR -Time 14:45 14:59 14:31 -Correct Patient Yes Yes Yes -Correct Side, Site, Position Yes Yes Yes -Correct Procedure Yes Yes Yes -Procedure Performed Yes Yes Yes -Type of Procedure Debridement Debridement Debridement -Clinical Debridement Subcutaneous Subcutaneous Subcutaneous -Post Debridement Size (cm) - Length 2.4 1.8 2.5 -Post Debridement Size (cm) - Width 1.8 1.2 1.6 -Post Debridement Size (cm) - Depth 0.7 0.3 0.3 -Total Square Cm 4.32 2.16 4.00 -Wound/Ulcer Outcome Not Healed Not Healed Not Healed -Ulcer Cleansing Rinsed/ Rinsed/ Rinsed/ Irrigated with Irrigated with Irrigated with Saline Saline Saline -Foul Odor after Cleansing No No No -Bioengineered Tissue No No No -Bleeding Controlled with Pressure Pressure Pressure -Offloading Yes Yes Yes -Type of Offloading Surgical Shoe Surgical Shoe Surgical Shoe -Treatment Response Procedure Procedure Procedure Tolerated Well Tolerated Well Tolerated Well #1 LEFT PLANTAR -Time 14:45 14:55 14:32 -Correct Patient Yes Yes Yes -Correct Side, Site, Position Yes Yes Yes -Correct Procedure Yes Yes Yes -Procedure Performed Yes Yes Yes -Type of Procedure Debridement Debridement Debridement -Clinical Debridement Subcutaneous Subcutaneous Subcutaneous -Post Debridement Size (cm) - Length 5.8 5.5 5.6 -Post Debridement Size (cm) - Width 2.5 2.1 2.5 -Post Debridement Size (cm) - Depth 0.3 0.5 0.8 -Total Square Cm 14.50 11.55 14.00 -Wound/Ulcer Outcome Not Healed Not Healed Not Healed -Ulcer Cleansing Rinsed/ Rinsed/ Rinsed/ Irrigated with Irrigated with Irrigated with Saline Saline Saline -Foul Odor after Cleansing No No No -Bioengineered Tissue No No No -Bleeding Controlled with Pressure Pressure Pressure -Offloading Yes Yes Yes -Type of Offloading Surgical Shoe Surgical Shoe Surgical Shoe -Treatment Response Procedure Procedure Procedure Tolerated Well Tolerated Well Tolerated Well Pain Scale: 0-10 Numeric Is Patient Pain Free? Yes Yes Yes Wound debrided: dorsal right foot Laterality: Right Wound Grade/Stage: grade 1 Type of Debridement: Excisional debridement Anesthesia Used: 5% Lidocaine Gel Depth: in the subcutaneous layer Instrument Used: #15 blade Tissue Removed: fibrous, devitalized subcutaneous, biofilm, slough Severity: Fat Layer Exposed Amount of bleeding with debridement: Mild Bleeding Controlled with: Pressure Patient tolerated procedure well - Additional Wound Wound debrided: plantar foot Laterality: Right Wound Grade/Stage: grade 3 Type of Debridement: Excisional debridement Anesthesia Used: 5% Lidocaine Gel Depth: in the subcutaneous layer Percentage of wound debrided: 100 Instrument Used: #15 blade Tissue Removed: fibrous, devitalized subcutaneous, biofilm, slough Severity: Fat Layer Exposed Amount of bleeding with debridement: Mild Bleeding Controlled with: Pressure Patient tolerated procedure: Patient tolerated procedure well - Additional Wound Wound debrided: plantar foot Wound Grade/Stage: grade 3 Type of Debridement: Excisional debridement Anesthesia Used: 5% Lidocaine Gel Depth: in the subcutaneous layer Percentage of wound debrided: 100 - fibrous, devitalized subcutaneous, biofilm, slough Instrument Used: #15 blade Tissue Removed: fibrous, devitalized subcutaneous, biofilm, slough Severity: Fat Layer Exposed Amount of bleeding with debridement: Mild Bleeding Controlled with: Pressure Patient tolerated procedure: Patient tolerated procedure well Assessment/Plan Active Problems (Last Reviewed 03/30/18 @ 15:05 by Jocelyn Barlow) Hallux limitus of right foot (Chronic) Abscess of right foot (Acute) Ulcer of right foot with fat layer exposed (Chronic) Chronic ulcer of left foot with fat layer exposed (Chronic) Type 2 diabetes mellitus with diabetic polyneuropathy (Chronic) Assessment: see above diagnoses Plan: I reviewed and discussed her care plan today. A subcutaneous excisional debridement was performed today as noted in the clinical plan to bilateral foot ulcer sites. It is noted that her current ulcer site is a sequela of a previous grade 3 ulcer with infected tendon deep tissue bilateral foot and the infection has resolved after recent antibiotics and ongoing wound care plan. To perform iodoform packing to the dorsal right foot ulcer site; this was demonstrated today. To change other ulcer site dressings with the Aquacel Ag. I recommended application of advanced wound healing products to optimize healing and this has been denied currently by her insurance. I reviewed her emergency room notes and culture results from July 10, 2018 which she was treated for an abscess. To complete her course of ciprofloxacin and Bactrim. Her cultures are growing out rare staph the final pending still. I updated x-rays and labs including ESR CRP and CBC were ordered and the results are pending. She understands further workup for osteomyelitis or deep space infection nidus is likely given her recent status change. The patient was educated on the importance of diet on wound healing and instructed to increase protein and vitamin C intake. Compliance was discussed and it is noted she does have some sharing movement of her wound dressings with suggest that some pressure and friction is occurring. To use assistive devices. She will resume wheelchair use. I educated her that walking on the ulcer sites and the surgical shoe will not allow appropriate healing. We can also consider forefoot offloading wedge shoe. If she needs to transfer or ambulate and is not able to keep weight off of it she was advised to put the weight on her heel to allow ulcer healing. To avoid going out without adequate protection from the cold weather. She struggles with this because she does not have discomfort due to lack of feeling. She also tries to sometimes wear boots that are too small and she feels this is also putting a lot of pressure on the ulcer site and she was advised to stop doing this. The patient verbalized understanding. Patient will follow up at wound healing center in one week or sooner if needed. She is also a hyperbaric oxygen therapy candidate and we discussed the indications, benefits, risks, complications, anticipated healing time management. She confirmed that she now aBle with her upcoming class schedule. I reviewed her EKG and chest x-ray from February 2018. If confirmation is at attained for insurance coverage I do recommend hyperbaric oxygen safety consultation. The insurance prior authorization still pending. I answered her questions. To return to clinic in 1 week or call sooner if she has any questions or concerns.
[2018-07-19 14:07] VITALS: BP 141/89; PULSE 105; RESP 16; TEMP 36.4; BMI 36.7
--- NOTE | 2018-07-20 12:42 | PN.PCM_ITS ---
(1) Osteomyelitis Status: Suspected Current Visit: Yes Code(s): M86.9 - Osteomyelitis, unspecified (2) Abscess of right foot Status: Resolved Current Visit: Yes Code(s): L02.611 - Cutaneous abscess of right foot (3) Chronic ulcer of left foot with fat layer exposed Status: Chronic Current Visit: Yes Code(s): L97.522 - Non-pressure chronic ulcer of other part of left foot with fat layer exposed (4) Ulcer of right foot with fat layer exposed Status: Chronic Current Visit: Yes Code(s): L97.512 - Non-pressure chronic ulcer of other part of right foot with fat layer exposed (5) Hallux limitus of right foot Status: Chronic Current Visit: Yes Code(s): M20.5X1 - Other deformities of toe(s) (acquired), right foot (6) Type 2 diabetes mellitus with diabetic polyneuropathy Status: Chronic Current Visit: Yes Code(s): E11.42 - Type 2 diabetes mellitus with diabetic polyneuropathy Type of Wound Date of Service: 07/19/18 Chief Complaint: Nonhealing ulcers b/l feet. Abscess and infection treatment of right foot History of Wound: This 28-year-old female with uncontrolled diabetes returns to clinic for follow-up of bilateral ulcers. She denies current subjective fever, chill, nausea, vomiting. She has completed her oral antibiotic course and her redness and drainage has resolved to the right foot. She continues to have some localized swelling to this site and this has been a recurrent situation. She denies diarrhea. She has continued difficulties keeping pressure off of both feet Progress of Wound: Stable right foot with ulcer. Ulcer left foot improving. Ulcer right great toe stable - Physical Exam Vital Signs Temp Pulse Resp BP 97.5 F L 105 H 16 141/89 H 07/19/18 14:07 07/19/18 14:07 07/19/18 14:07 07/19/18 14:07 General: Alert, Oriented x3, Cooperative Extremities: No cyanosis, Capillary Refill Less than 3 Seconds, No Calf Tenderness - Negative Chiquita and Rockwell sign bilateral, Diminished Peripheral Pulses, Edema - mild bilateral lower extremities, - - Dorsal contraction of lesser toes and prominent metatarsal heads bilateral. Compartments remain soft to palpation bilateral lower extremities. There is continued dorsal foot induration adjacent to the previous abscess site with no mickey purulence on expression or necrosis. Probing continues to communicate between the dorsal and plantar foot, right. Skin: Ulcer/ Wound - No purulence, erythema, streaking, odor, or acute signs of infection today bilateral lower extremities. I am concerned about the chronicity of the right foot ulcer site and the deep probing. The peripheral skin is hairless and atrophic. There is no interdigital maceration. She does have some tenderness on palpation to the third metatarsal phalangeal joint right foot. There is decreased loaded first metatarsophalangeal joint range of motion right foot Wound Measurements and Assessment WC - Nurse 1 - General Ulcer Measurement Start: 06/28/18 14:12 Freq: Status: Active Protocol: Activity Type Activity Date Activity User E-Sign Co-Sign Detail Recorded Client Recorded Date Recorded By Document 07/19/18 14:07 [facility] [id number] 07/19/18 14:27 [facility] 07/19/18 14:07 Wound Center Nurse 1 [Ulcer Assessment] #6- RT FOOT DORSAL -Combined with other wound No -Current Size (cm) - Length 0.8 -Current Size (cm) - Width 0.7 -Current Size (cm) - Depth 0.1 -Total Square Cm 0.56 -Photo Taken No -Epithelialization None Present -Tunneling No -Undermining/Tunneling No -Circular Undermining No -Exudate Amt None Present -Wound Margin Flat & Intact -Granulation Amt None Present (0 %) -Slough/Fibrin Yes -Necrosis Amt Large (67-100%) -Necrotic Tissue Type Eschar -Texture (Cheri-wound Skin Appearance) Scarring -Moisture (Cheri-wound Skin Appearance Dry/Scaly ) -Color (Cheri-wound Skin Appearance) Assessed Erythema -Temperature (Cheri-wound Skin No Abnormality Appearance) (Pt Warm) -Tenderness on Palpation (Cheri-wound No Skin Appearance) -Ulcer Cleansing Rinsed/ Irrigated with Saline -Foul Odor after Cleansing No -Anesthetic Used 4% Lidocaine Solution #4 RIGHT GREAT TOE MEDIAL -Combined with other wound No -Current Size (cm) - Length 0.1 -Current Size (cm) - Width 0.1 -Current Size (cm) - Depth 0.2 -Total Square Cm 0.01 -Photo Taken No -Epithelialization None Present -Tunneling No -Undermining/Tunneling No -Circular Undermining No -Exudate Amt None Present -Wound Margin Flat & Intact -Granulation Amt None Present (0 %) -Slough/Fibrin Yes -Necrosis Amt Large (67-100%) -Necrotic Tissue Type Eschar -Texture (Cheri-wound Skin Appearance) Callus Scarring -Moisture (Cheri-wound Skin Appearance Dry/Scaly ) -Color (Cheri-wound Skin Appearance) Assessed -Temperature (Cheri-wound Skin No Abnormality Appearance) (Pt Warm) -Tenderness on Palpation (Cheri-wound No Skin Appearance) -Ulcer Cleansing Wound Cleanser -Foul Odor after Cleansing No -Anesthetic Used 4% Lidocaine Solution #3 RIGHT FOOT PLANTAR -Combined with other wound No -Current Size (cm) - Length 2.1 -Current Size (cm) - Width 1.6 -Current Size (cm) - Depth 0.8 -Total Square Cm 3.36 -Photo Taken No -Epithelialization None Present -Tunneling No -Undermining/Tunneling No -Circular Undermining No -Exudate Amt Medium -Exudate Type Serosanguineous -Wound Margin Flat & Intact -Granulation Amt Large (67-100%) -Granulation Quality [place] -Slough/Fibrin Yes -Necrosis Amt Small (1-33%) -Necrotic Tissue Type Adherent Slough -Texture (Cheri-wound Skin Appearance) Callus Scarring -Moisture (Cheri-wound Skin Appearance Dry/Scaly ) -Color (Cheri-wound Skin Appearance) Assessed -Temperature (Cheri-wound Skin No Abnormality Appearance) (Pt Warm) -Tenderness on Palpation (Cheri-wound No Skin Appearance) -Ulcer Cleansing Wound Cleanser -Foul Odor after Cleansing No -Anesthetic Used 4% Lidocaine Solution #1 LEFT PLANTAR -Combined with other wound No -Current Size (cm) - Length 5.5 -Current Size (cm) - Width 2.4 -Current Size (cm) - Depth 0.4 -Total Square Cm 13.20 -Photo Taken No -Epithelialization Small 1-33% -Tunneling No -Undermining/Tunneling No -Circular Undermining No -Exudate Amt Medium -Exudate Type Serosanguineous -Wound Margin Flat & Intact -Granulation Amt Large (67-100%) -Granulation Quality [place] -Slough/Fibrin Yes -Necrosis Amt Small (1-33%) -Necrotic Tissue Type Adherent Slough -Texture (Cheri-wound Skin Appearance) Callus Scarring -Moisture (Cheri-wound Skin Appearance Dry/Scaly ) -Color (Cheri-wound Skin Appearance) Assessed -Temperature (Cheri-wound Skin No Abnormality Appearance) (Pt Warm) -Tenderness on Palpation (Cheri-wound No Skin Appearance) -Ulcer Cleansing Wound Cleanser -Foul Odor after Cleansing No -Anesthetic Used 4% Lidocaine Solution [Edema Assessment] -Lower Limb Edema Present Yes -Right Calf (cm) 41.2 -Right Ankle (cm) 25.1 -Left Calf (cm) 41.1 -Left Ankle (cm) 25 WC - Nurse 2 - General Ulcer CM Notes Start: 06/28/18 14:12 Freq: Status: Active Protocol: Activity Type Activity Date Activity User E-Sign Co-Sign Detail Recorded Client Recorded Date Recorded By Document 07/19/18 14:45 [facility] [id number] 07/19/18 14:53 [facility] 07/19/18 14:45 Wound Center Nurse 2 [Procedure/Treatment] #6- RT FOOT DORSAL -Time 14:47 -Correct Patient Yes -Correct Side, Site, Position Yes -Correct Procedure Yes -Procedure Performed Yes -Type of Procedure Debridement -Clinical Debridement Subcutaneous -Post Debridement Size (cm) - Length 0.8 -Post Debridement Size (cm) - Width 0.8 -Post Debridement Size (cm) - Depth 0.1 -Total Square Cm 0.64 -Wound/Ulcer Outcome Not Healed -Ulcer Cleansing Rinsed/ Irrigated with Saline -Foul Odor after Cleansing No -Bioengineered Tissue No -Bleeding Controlled with Pressure -Offloading Yes -Type of Offloading Surgical Shoe -Treatment Response Procedure Tolerated Well #4 RIGHT GREAT TOE MEDIAL -Time 14:48 -Correct Patient Yes -Correct Side, Site, Position Yes -Correct Procedure Yes -Procedure Performed Yes -Type of Procedure Debridement -Clinical Debridement Subcutaneous -Post Debridement Size (cm) - Length 0.4 -Post Debridement Size (cm) - Width 0.2 -Post Debridement Size (cm) - Depth 0.1 -Total Square Cm 0.08 -Wound/Ulcer Outcome Not Healed -Ulcer Cleansing Rinsed/ Irrigated with Saline -Foul Odor after Cleansing No -Bioengineered Tissue No -Bleeding Controlled with Pressure -Offloading Yes -Type of Offloading Surgical Shoe -Treatment Response Procedure Tolerated Well #3 RIGHT FOOT PLANTAR -Time 14:48 -Correct Patient Yes -Correct Side, Site, Position Yes -Correct Procedure Yes -Procedure Performed Yes -Type of Procedure Debridement -Clinical Debridement Subcutaneous -Post Debridement Size (cm) - Length 2.2 -Post Debridement Size (cm) - Width 1.6 -Post Debridement Size (cm) - Depth 0.8 -Total Square Cm 3.52 -Wound/Ulcer Outcome Not Healed -Ulcer Cleansing Rinsed/ Irrigated with Saline -Foul Odor after Cleansing No -Bioengineered Tissue No -Bleeding Controlled with Pressure -Offloading Yes -Type of Offloading Surgical Shoe -Treatment Response Procedure Tolerated Well #1 LEFT PLANTAR -Time 14:48 -Correct Patient Yes -Correct Side, Site, Position Yes -Correct Procedure Yes -Procedure Performed Yes -Type of Procedure Debridement -Clinical Debridement Subcutaneous -Post Debridement Size (cm) - Length 5.5 -Post Debridement Size (cm) - Width 2.5 -Post Debridement Size (cm) - Depth 0.4 -Total Square Cm 13.75 -Wound/Ulcer Outcome Not Healed -Ulcer Cleansing Rinsed/ Irrigated with Saline -Foul Odor after Cleansing No -Bioengineered Tissue No -Bleeding Controlled with Pressure -Offloading Yes -Type of Offloading Surgical Shoe -Treatment Response Procedure Tolerated Well [See Physician Procedure note for Specifics] Pain Scale: 0-10 Numeric [Pain] -Is Patient Pain Free? Yes Musculoskeletal: No Tenderness to Palpation of Joints or Extremities, Muscle Wasting Neurological: - - Lack of normal epicritic sensation light touch consistent with neuropathy bilateral lower extremities Psych/Mental Status: Normal Affect, Appropriate Debridement Note Post-Debridement Measurements/Treatment WC - Nurse 2 - General Ulcer CM Notes Start: 06/28/18 14:12 Freq: Status: Active Protocol: Activity Type Activity Date Activity User E-Sign Co-Sign Detail Recorded Client Recorded Date Recorded By Document 06/28/18 14:44 [id number] 06/28/18 14:47 Document 07/05/18 14:55 [id number] 07/05/18 15:02 Document 07/12/18 14:27 [id number] 07/12/18 14:38 Document 07/19/18 14:45 [id number] 07/19/18 14:53 06/28/18 07/05/18 07/12/18 14:44 14:55 14:27 Wound Center Nurse 2 #6- RT FOOT DORSAL -Time 14:30 -Correct Patient Yes -Correct Side, Site, Position Yes -Correct Procedure Yes -Procedure Performed Yes -Type of Procedure Debridement -Clinical Debridement Subcutaneous -Post Debridement Size (cm) - Length 0.8 -Post Debridement Size (cm) - Width 0.8 -Post Debridement Size (cm) - Depth 0.1 -Total Square Cm 0.64 -Wound/Ulcer Outcome Not Healed -Ulcer Cleansing Rinsed/ Irrigated with Saline -Foul Odor after Cleansing No -Bioengineered Tissue No -Bleeding Controlled with Pressure -Offloading Yes -Type of Offloading Surgical Shoe -Treatment Response Procedure Tolerated Well #4 RIGHT GREAT TOE MEDIAL -Time 14:44 15:00 14:31 -Correct Patient Yes Yes Yes -Correct Side, Site, Position Yes Yes Yes -Correct Procedure Yes Yes Yes -Procedure Performed Yes Yes Yes -Type of Procedure Debridement Debridement Debridement -Clinical Debridement Subcutaneous Subcutaneous Subcutaneous -Post Debridement Size (cm) - Length 0.5 0.5 0.3 -Post Debridement Size (cm) - Width 0.5 0.3 0.2 -Post Debridement Size (cm) - Depth 0.1 0.3 0.3 -Total Square Cm 0.25 0.15 0.06 -Wound/Ulcer Outcome Not Healed Not Healed Not Healed -Ulcer Cleansing Rinsed/ Rinsed/ Rinsed/ Irrigated with Irrigated with Irrigated with Saline Saline Saline -Foul Odor after Cleansing No No No -Bioengineered Tissue No No No -Bleeding Controlled with Pressure Pressure Pressure -Offloading Yes Yes Yes -Type of Offloading Surgical Shoe Surgical Shoe Surgical Shoe -Treatment Response Procedure Procedure Procedure Tolerated Well Tolerated Well Tolerated Well #3 RIGHT FOOT PLANTAR -Time 14:45 14:59 14:31 -Correct Patient Yes Yes Yes -Correct Side, Site, Position Yes Yes Yes -Correct Procedure Yes Yes Yes -Procedure Performed Yes Yes Yes -Type of Procedure Debridement Debridement Debridement -Clinical Debridement Subcutaneous Subcutaneous Subcutaneous -Post Debridement Size (cm) - Length 2.4 1.8 2.5 -Post Debridement Size (cm) - Width 1.8 1.2 1.6 -Post Debridement Size (cm) - Depth 0.7 0.3 0.3 -Total Square Cm 4.32 2.16 4.00 -Wound/Ulcer Outcome Not Healed Not Healed Not Healed -Ulcer Cleansing Rinsed/ Rinsed/ Rinsed/ Irrigated with Irrigated with Irrigated with Saline Saline Saline -Foul Odor after Cleansing No No No -Bioengineered Tissue No No No -Bleeding Controlled with Pressure Pressure Pressure -Offloading Yes Yes Yes -Type of Offloading Surgical Shoe Surgical Shoe Surgical Shoe -Treatment Response Procedure Procedure Procedure Tolerated Well Tolerated Well Tolerated Well #1 LEFT PLANTAR -Time 14:45 14:55 14:32 -Correct Patient Yes Yes Yes -Correct Side, Site, Position Yes Yes Yes -Correct Procedure Yes Yes Yes -Procedure Performed Yes Yes Yes -Type of Procedure Debridement Debridement Debridement -Clinical Debridement Subcutaneous Subcutaneous Subcutaneous -Post Debridement Size (cm) - Length 5.8 5.5 5.6 -Post Debridement Size (cm) - Width 2.5 2.1 2.5 -Post Debridement Size (cm) - Depth 0.3 0.5 0.8 -Total Square Cm 14.50 11.55 14.00 -Wound/Ulcer Outcome Not Healed Not Healed Not Healed -Ulcer Cleansing Rinsed/ Rinsed/ Rinsed/ Irrigated with Irrigated with Irrigated with Saline Saline Saline -Foul Odor after Cleansing No No No -Bioengineered Tissue No No No -Bleeding Controlled with Pressure Pressure Pressure -Offloading Yes Yes Yes -Type of Offloading Surgical Shoe Surgical Shoe Surgical Shoe -Treatment Response Procedure Procedure Procedure Tolerated Well Tolerated Well Tolerated Well Pain Scale: 0-10 Numeric Is Patient Pain Free? Yes Yes Yes 07/19/18 14:45 Wound Center Nurse 2 #6- RT FOOT DORSAL -Time 14:47 -Correct Patient Yes -Correct Side, Site, Position Yes -Correct Procedure Yes -Procedure Performed Yes -Type of Procedure Debridement -Clinical Debridement Subcutaneous -Post Debridement Size (cm) - Length 0.8 -Post Debridement Size (cm) - Width 0.8 -Post Debridement Size (cm) - Depth 0.1 -Total Square Cm 0.64 -Wound/Ulcer Outcome Not Healed -Ulcer Cleansing Rinsed/ Irrigated with Saline -Foul Odor after Cleansing No -Bioengineered Tissue No -Bleeding Controlled with Pressure -Offloading Yes -Type of Offloading Surgical Shoe -Treatment Response Procedure Tolerated Well #4 RIGHT GREAT TOE MEDIAL -Time 14:48 -Correct Patient Yes -Correct Side, Site, Position Yes -Correct Procedure Yes -Procedure Performed Yes -Type of Procedure Debridement -Clinical Debridement Subcutaneous -Post Debridement Size (cm) - Length 0.4 -Post Debridement Size (cm) - Width 0.2 -Post Debridement Size (cm) - Depth 0.1 -Total Square Cm 0.08 -Wound/Ulcer Outcome Not Healed -Ulcer Cleansing Rinsed/ Irrigated with Saline -Foul Odor after Cleansing No -Bioengineered Tissue No -Bleeding Controlled with Pressure -Offloading Yes -Type of Offloading Surgical Shoe -Treatment Response Procedure Tolerated Well #3 RIGHT FOOT PLANTAR -Time 14:48 -Correct Patient Yes -Correct Side, Site, Position Yes -Correct Procedure Yes -Procedure Performed Yes -Type of Procedure Debridement -Clinical Debridement Subcutaneous -Post Debridement Size (cm) - Length 2.2 -Post Debridement Size (cm) - Width 1.6 -Post Debridement Size (cm) - Depth 0.8 -Total Square Cm 3.52 -Wound/Ulcer Outcome Not Healed -Ulcer Cleansing Rinsed/ Irrigated with Saline -Foul Odor after Cleansing No -Bioengineered Tissue No -Bleeding Controlled with Pressure -Offloading Yes -Type of Offloading Surgical Shoe -Treatment Response Procedure Tolerated Well #1 LEFT PLANTAR -Time 14:48 -Correct Patient Yes -Correct Side, Site, Position Yes -Correct Procedure Yes -Procedure Performed Yes -Type of Procedure Debridement -Clinical Debridement Subcutaneous -Post Debridement Size (cm) - Length 5.5 -Post Debridement Size (cm) - Width 2.5 -Post Debridement Size (cm) - Depth 0.4 -Total Square Cm 13.75 -Wound/Ulcer Outcome Not Healed -Ulcer Cleansing Rinsed/ Irrigated with Saline -Foul Odor after Cleansing No -Bioengineered Tissue No -Bleeding Controlled with Pressure -Offloading Yes -Type of Offloading Surgical Shoe -Treatment Response Procedure Tolerated Well Pain Scale: 0-10 Numeric Is Patient Pain Free? Yes Wound debrided: plantar hallux Laterality: Right Wound Grade/Stage: grade 1 Type of Debridement: Excisional debridement Anesthesia Used: 5% Lidocaine Gel Depth: in the subcutaneous layer Percentage of wound debrided: 100 Instrument Used: #15 blade Tissue Removed: fibrous, devitalized subcutaneous, biofilm, slough Severity: Fat Layer Exposed Amount of bleeding with debridement: Mild Bleeding Controlled with: Pressure Patient tolerated procedure well - Additional Wound Wound debrided: dorsal forefoot Laterality: Right Wound Grade/Stage: grade 1 Type of Debridement: Excisional debridement Anesthesia Used: 5% Lidocaine Gel Depth: in the subcutaneous layer Percentage of wound debrided: 100 Instrument Used: #15 blade Tissue Removed: fibrous, devitalized subcutaneous, biofilm, slough Severity: Fat Layer Exposed Amount of bleeding with debridement: Mild Bleeding Controlled with: Pressure Patient tolerated procedure: Patient tolerated procedure well - Additional Wound Wound debrided: plantar metatarsal head central Laterality: Right Wound Grade/Stage: grade 3 Type of Debridement: Excisional debridement Anesthesia Used: 5% Lidocaine Gel Depth: in the subcutaneous layer Percentage of wound debrided: 100 Instrument Used: #15 blade Tissue Removed: fibrous, devitalized subcutaneous, biofilm, slough Severity: Fat Layer Exposed Amount of bleeding with debridement: Mild Bleeding Controlled with: Pressure Patient tolerated procedure: Patient tolerated procedure well - Additional Wound Wound debrided: plantar forefoot Laterality: Left Wound Grade/Stage: grade 3 Type of Debridement: Excisional debridement Anesthesia Used: 5% Lidocaine Gel Depth: in the subcutaneous layer Percentage of wound debrided: 100 Instrument Used: #15 blade Tissue Removed: fibrous, devitalized subcutaneous, biofilm, slough Severity: Fat Layer Exposed Amount of bleeding with debridement: Mild Bleeding Controlled with: Pressure Patient tolerated procedure: Patient tolerated procedure well Assessment/Plan Active Problems (Last Reviewed 03/30/18 @ 15:05 by Jocelyn Barlow) Hallux limitus of right foot (Chronic) Ulcer of right foot with fat layer exposed (Chronic) Chronic ulcer of left foot with fat layer exposed (Chronic) Type 2 diabetes mellitus with diabetic polyneuropathy (Chronic) Assessment: see above diagnoses Plan: I reviewed and discussed her care plan today. A subcutaneous excisional debridement was performed today as noted in the clinical plan to bilateral foot ulcer sites. It is noted that her current ulcer site is a sequela of a previous grade 3 ulcer with infected tendon deep tissue bilateral foot and the infection has resolved after recent antibiotics and ongoing wound care plan. I recommend further workup to see if septic joint or osteomyelitis is present due to her recurrent infections and delayed healing to the right foot. An MRI was ordered today. I also reviewed her previous x-rays obtained last week and there is no acute osseous destruction, osteolysis, soft tissue emphysema, or foreign body and 3 standard foot views. Her labs were also reviewed and she does not have leukocytosis (WBC 8.6), her ESR was 42 and C-reactive protein 37.7. To change other ulcer site dressings with the Aquacel Ag. I reviewed her previous emergency room notes and culture results from July 10, 2018 which she was treated for an abscess. She already completed her course of ciprofloxacin and Bactrim. Her cultures are growing out rare staph the final and we will request the final report from that facility. Her foot deformity is also noted and this may be contributing to some delayed healing. We discussed forming a metatarsal head resection pending the MRI results and ongoing deformity that is continuing delayed ulcer healing. I will review the test results with her upon completion. The patient was educated on the importance of diet on wound healing and instructed to increase protein and vitamin C intake. Compliance was discussed and it is noted she does have some sharing movement of her wound dressings with suggest that some pressure and friction is occurring. To use assistive devices. She will resume wheelchair use. We discussed wedge forefoot offloading shoes and these will be ordered for her. I educated her that walking on the ulcer sites and the surgical shoe will not allow appropriate healing. If she needs to transfer or ambulate and is not able to keep weight off of it she was advised to put the weight on her heel to allow ulcer healing. To avoid going out without adequate protection from the cold weather. She will follow up at wound healing center in one week or sooner if needed. She is also a hyperbaric oxygen therapy candidate and we discussed the indications, benefits, risks, complications, anticipated healing time management. She confirmed that she now aBle with her upcoming class schedule. I reviewed her EKG and chest x-ray from February 2018. If confirmation is at attained for insurance coverage I do recommend hyperbaric oxygen safety consultation. The insurance prior authorization is still pending. I answered her questions. To return to clinic in 1 week or call sooner if she has any questions or concerns.
== END 2018-07-20 23:59 ==
LOC: WC 14:00
PROVIDERS: Family Provider Internal Medicine; PCP Internal Medicine; Referring Provider Podiatrist; Visit Provider Podiatrist
DX: E11.621 Type 2 diabetes mellitus with foot ulcer (principal); L97.522 Non-pressure chronic ulcer of other part of left foot with fat layer exposed; E11.42 Type 2 diabetes mellitus with diabetic polyneuropathy; L97.512 Non-pressure chronic ulcer of other part of right foot with fat layer exposed; M20.5X1 Other deformities of toe(s) (acquired), right foot; E11.65 Type 2 diabetes mellitus with hyperglycemia
CPT/HCPCS: 11042; 80053; 85025; 99213; G0463

== ENCOUNTER → 2018-08-01 11:37 | Outpatient (CLI) | payer OTHER, SELFPAY ==
[2018-07-28 09:52] VITALS: BMI 36.7
[2018-08-01 12:39] LABS: Basophil# 0.02 X10^3/uL; Basophil% 0.2 % (0-1); Eosinophil# 0.12 X10^3/uL; Eosinophils% 1.4 % (0-5); Hematocrit 32.2 % (37-47); Lymphocyte % 32.7 % (19-41); Mean Corp Hgb Conc 31.1 g/gl (32-36); Mean Platelet Vol. 8.8 fl (6.2-12.0); Monocyte# 0.65 X10^3/uL; Monocyte% 7.6 % (0-10); Neutrophil # 4.95 X10^3/uL (2.7-7.7); Platelet Count 303 K/mm3 (150-450); RBC Distribution Width CV 15.1 % (11.6-14.6); RBC Distribution Width SD 40.3 fl (35.1-43.9); Red Blood Count 4.35 M/mm3 (4.2-5.4); White Blood Count 8.6 K/mm3 (4.4-11.0)
[2018-08-01 12:40] LABS: POSITIVE COUNT NO; POSITIVE DIFFERENTIAL NO; POSITIVE MORPHOLOGY NO
[2018-08-01 12:50] LABS: Hemoglobin A1c 8.9 % (4.2-6.3)
[2018-08-01 13:21] LABS: ALB/GLOB Ratio 0.8 RATIO (0.9-2.4); AST(SGOT) 6 U/L (15-37); Alanine Aminotransfer ALT/SGPT 17 U/L (13-56); Albumin, Serum 3.3 g/dL (3.2-5.0); Alkaline Phosphatase 72 U/L (45-117); Anion Gap 12 (5-15); BUN 15 mg/dL (7-18); BUN/Creat Ratio 24.2 RATIO (10-20); Chloride 105 mmol/L (98-107); Creatinine, Serum 0.62 mg/dL (0.55-1.02); EST Glomerular Filtration Rate 121 mL/min (>60); Est Glom Filt Rate - Afr Amer 147 mL/min (>60); Globulin 4.3 g/dL (2.2-4.2); Glucose 149 mg/dL (74-106); Potassium 4.2 mmol/L (3.5-5.1); Protein, Total 7.6 g/dL (6.4-8.2); Sodium Level 141 mmol/L (136-145)
[2018-08-01 13:41] LABS: Microalbumin,Random Urine 35.4 mg/L (NO RANGE EST.); Microalbumin:Creatinine Ratio 26.6 mg/g CRE (<30 mg/g CRE)
== END ==
PROVIDERS: Family Provider Internal Medicine; PCP Internal Medicine; Referring Provider Nurse Practitioner; Visit Provider Nurse Practitioner
DX: E11.9 Type 2 diabetes mellitus without complications (principal); T14.8XXA Other injury of unspecified body region, initial encounter
CPT/HCPCS: 36415; 80053; 82043; 82570; 83036; 84134; 85025

== ENCOUNTER 2018-08-03 12:00 | Outpatient (RCR) | payer SELFPAY ==
[2018-07-28 09:52] VITALS: BMI 36.7
== END 2018-08-03 23:59 | disposition home or self-care (01) ==
LOC: DC 12:00
PROVIDERS: Family Provider Internal Medicine; PCP Internal Medicine; Visit Provider Internal Medicine
DX: Z71.3 Dietary counseling and surveillance (principal); E66.9 Obesity, unspecified; E11.42 Type 2 diabetes mellitus with diabetic polyneuropathy; Z68.34 Body mass index [BMI] 34.0-34.9, adult
CPT/HCPCS: 97803; G0108

== ENCOUNTER 2018-08-07 13:56 | Outpatient (RCR) | payer OTHER, SELFPAY ==
[2018-07-21 01:15] VITALS: BP 141/89; PULSE 105; RESP 16; TEMP 36.4
[2018-08-02 15:21] VITALS: BMI 36.7
--- NOTE | 2018-08-07 13:59 | VDLE_ITS ---
Reason For Study: PVD RIGHT LEFT CFV is compressible, spontaneous, phasic, CFV is compressible, spontaneous, phasic, competent and demonstrates normal competent, and demonstrates normal augmentation. augmentation. FV is compressible, spontaneous, phasic, FV is compressible, spontaneous, phasic, competent and demonstrates normal competent and demonstrates normal augmentation. augmentation. POP V is compressible, spontaneous, phasic, POP V is compressible, spontaneous, phasic, competent and demonstrates normal competent and demonstrates normal augmentation. augmentation. T/P Trunk is compressible. T/P Trunk is compressible. PTV is compressible. PTV is compressible. RT PerV is compressible. LT PerV is compressible. SFJ is competent. SFJ is competent. GSV above knee is competent. GSV is competent. GSV below knee is INCOMEPTENT for greater SSV is competent. than 0.5 seconds and measures 0.27 x 0.27 cm. SSV is competent. INCOMPETENT sed special education teacher from GSV 27 cm above medial malleolus. Procedure Exam performed in department. Interpretation Summary Deep veins of the lower extremities are bilaterally patent and compressible segmentally. There is no evidence of deep vein thrombosis on either side. Valvular competence appears intact within the proximal deep venous systems bilaterally. The greater saphenous veins appear bilaterally patent and compressible segmentally. Sapheno-femoral junctions are bilaterally competent . The right greater saphenous vein appears competent above the knee. The right greater saphenous vein appears incompetent below the knee. The left greater saphenous vein appears segmentally competent. Small saphenous veins are patent and competent bilaterally. An incompetent sed special education teacher vein is noted in the right calf, located 27 centimeters proximal to the right medial malleolus. Ordering Physician: Iram Dominguez Referring Physician: Raman Shepard Performed By: Pricilla Mejia RVT and Student
--- NOTE | 2018-08-07 14:00 | ECHOCS_ITS ---
Reason For Study: CHEST PAIN Procedure This was a 2D Doppler, Color Flow transthoracic echocardiogram. Contrast injection was performed. The study was technically difficult. Exam performed in department. Left Ventricle Normal LV size. The estimated ejection fraction is 55 %. Normal diastology for age. No regional wall motion abnormalities noted. Right Ventricle Normal RV size. Normal systolic function. Atria Normal left atrium. Normal right atrium. Mitral Valve Normal mitral valve. Tricuspid Valve Normal tricuspid valve. Mild (1+) tricuspid valve insufficiency. Pulmonary artery systolic pressure is 37 mmHg. Aortic Valve Normal aortic valve. Pulmonic Valve Normal pulmonic valve. Great Vessels Normal aortic root. The pulmonary artery is normal size. Normal inferior vena cava. Pericardium/Pleural No pericardial effusion. Medication 22 gauge I.V. with prn adaptor inserted into right arm. Diluted definity 3ml given slow IV push to enhance endocardial definition. MMode/2D Measurements & Calculations LVIDd: 4.9 cm IVSd: 0.86 cm Ao root diam: 2.3 cm LVIDs: 3.5 cm LVPWd: 0.91 cm RVDd: 2.6 cm FS: 28.6 % LAV(MOD-bp): 63.7 ml EDV(MOD-sp4): 165.9 ml EDV(MOD-sp2): 142.6 ml LAV(MOD-bp) Indexed: 27.1 ml/m2 ESV(MOD-sp4): 67.2 ml EF(MOD-sp2): 57.8 % LAV(MOD-sp2): 57.8 ml EF(MOD-sp4): 59.5 % LAV(MOD-sp4): 67.9 ml SV(MOD-sp4): 98.7 ml SV(MOD-sp2): 82.4 ml LA A4 area: 22.0 cm2 LA dimension(2D): 4.5 cm RA A4 area: 14.8 cm2 Time Measurements MV dec time: 0.11 sec Doppler Measurements & Calculations MV E max mannie: 148.4 cm/sec Lat Peak E' Mannie: 16.6 cm/sec Med Peak E' Mannie: 12.4 cm/sec MV A max mannie: 58.5 cm/sec E/E' lat: 9.0 E/E' med: 12.0 MV E/A: 2.5 Ao V2 max: 134.4 cm/sec LV V1 max: 98.6 cm/sec PA V2 max: 143.4 cm/sec Ao max P.2 mmHg LV V1 max P.9 mmHg TR max mannie: 290.4 cm/sec TR max P.7 mmHg Interpretation Summary Normal LV size. The estimated ejection fraction is 55 %. Normal diastology for age. Mild (1+) tricuspid valve insufficiency. Pulmonary artery systolic pressure is 37 mmHg. Contrast injection was performed. Ordering Physician: Iram Dominguez Referring Physician: Raman Shepard Performed By: Rani Andrew RDCS, RVT
--- NOTE | 2018-08-07 16:08 | EKG12_ITS ---
Test Reason : Blood Pressure : / mmHG Vent. Rate : 110 BPM Atrial Rate : 110 BPM P-R Int : 150 ms QRS Dur : 080 ms QT Int : 360 ms P-R-T Axes : 054 035 035 degrees QTc Int : 487 ms Sinus tachycardia Otherwise normal ECG Confirmed by SUZIE BUCK, EUFEMIA ([id number]), scientific editor REBECCA PHILLIPS ([id number]) on 08/08/2018 11:00:59 AM Referred By: Iram Dominguez Confirmed By:EUFEMIA LARSEN MD
== END 2018-08-17 23:59 ==
LOC: CVS 13:56
PROVIDERS: Family Provider Internal Medicine; PCP Internal Medicine; Referring Provider Nurse Practitioner; Visit Provider Nurse Practitioner
DX: E11.51 Type 2 diabetes mellitus with diabetic peripheral angiopathy without gangrene (principal); R60.0 Localized edema; S91.309A Unspecified open wound, unspecified foot, initial encounter; R07.9 Chest pain, unspecified; E11.65 Type 2 diabetes mellitus with hyperglycemia; I10 Essential (primary) hypertension
CPT/HCPCS: 93005; 93306; 93970; Q9957; A4216; C8929

== ENCOUNTER → 2018-08-10 11:40 | Outpatient (CLI) | payer OTHER, SELFPAY ==
[2018-08-09 14:10] VITALS: BMI 36.7
--- NOTE | 2018-08-10 11:43 | RAD_ITS ---
STUDY: X-RAY CHEST REASON FOR EXAM: Female, 28 years old. Shortness of breath TECHNIQUE: PA and lateral views of the chest. COMPARISON: None. FINDINGS: The lungs are clear and expanded. There is no demonstrated pleural abnormality. Normal size heart. Normal mediastinum and clyde. Normal visualized pulmonary arteries. Normal visualized aortic arch and descending thoracic aorta. Normal visualized thoracic spine. Normal visualized ribs, clavicles, and shoulders. There is no demonstrated abnormality of the visualized soft tissue structures of the upper abdomen. RAD/Chest PA and Lateral IMPRESSION: Normal x-ray examination of the chest. Electronically Signed: Delano Jules MD at 15:31 EST , Service support ,
--- NOTE | 2018-08-11 11:20 | PCM.WC.PN ---
(1) Anemia Status: Acute Current Visit: Yes Qualifiers: Anemia type: iron deficiency Code(s): D64.9 - Anemia, unspecified (2) Chronic ulcer of left foot with fat layer exposed Status: Chronic Current Visit: No Code(s): L97.522 - Non-pressure chronic ulcer of other part of left foot with fat layer exposed (3) Diabetes mellitus type 2, uncontrolled, with complications Status: Chronic Current Visit: No Code(s): E11.8 - Type 2 diabetes mellitus with unspecified complications; E11.65 - Type 2 diabetes mellitus with hyperglycemia (4) Diabetic foot ulcer Status: Chronic Current Visit: No Code(s): E11.621 - Type 2 diabetes mellitus with foot ulcer; L97.509 - Non-pressure chronic ulcer of other part of unspecified foot with unspecified severity (5) Hallux limitus of right foot Status: Chronic Current Visit: No Code(s): M20.5X1 - Other deformities of toe(s) (acquired), right foot (6) Type 2 diabetes mellitus with diabetic polyneuropathy Status: Chronic Current Visit: No Code(s): E11.42 - Type 2 diabetes mellitus with diabetic polyneuropathy (7) Venous insufficiency Status: Chronic Current Visit: No Code(s): I87.2 - Venous insufficiency (chronic) (peripheral) (8) Osteomyelitis Status: Suspected Current Visit: No Code(s): M86.9 - Osteomyelitis, unspecified (9) Malnutrition Status: Acute Current Visit: Yes Code(s): E46 - Unspecified protein-calorie malnutrition Type of Wound Chief Complaint: Bilateral foot ulcers History of Wound: This 28-year-old female with uncontrolled diabetes returns to clinic for follow-up of bilateral ulcers. She denies subjective fever, chill, nausea, vomiting. She has been compliant with the dressing recommendations. She is scheduled to [facility] She completed her MRI of the right foot yesterday and is here today to go over the results. She went through her initial screening test in preparation to start hyperbaric oxygen therapy and also asked about her test results as well. She denies fever, chill, nausea, vomiting, foot redness, or odors drainage. She has continued swelling and the top of her right foot is firm to touch. Progress of Wound: Today we went over her labs that we ordered which showed that she is anemic at 11 on a hemoglobin, prealbumin barely Made 20. Patient's venous studies show some blockages on her connectors in the GS V in the right leg and the left leg worse in the right leg. Discussed with patient that if her menstrual cycles are very heavy which she says they are she should be seen by [facility] or [facility] if she cannot afford it and be put on control pills. She states that she was on control pills before. This would control her bleeding and may be her anemia. Patient will be referred to [facility] for the legs she is to scheduled for Tuesday surgery with Dr. berg on. She is to increase her protein intake again to protein shakes per meter 30 g/day at least 1 or 2 and increase in iron 65 mg 2 times a day and she may take with Colace for stool softener. - Physical Exam General: Oriented x3, Cooperative, Well developed HEENT: Atraumatic, PERRLA Oral: Moist Mucosa Neck: Supple, No JVD Lungs: Clear to auscultation, Normal air movement Cardiovascular: Regular rate, Regular Rhythm Abdomen: Bowel Sounds Present, Soft, Non Tender, No Hepato-splenomegaly Extremities: No clubbing, No edema Musculoskeletal: No Tenderness to Palpation of Joints or Extremities Lymphatic: No Cervical, Supraclavicular, or Inguinal Adenopathy Neurological: Cranial nerves II-XII grossly intact, Neuro grossly intact Psych/Mental Status: Normal Affect, Appropriate Debridement Note No debridement was completed today Assessment/Plan Clinical Impression(s) from Imaging Studies Chest X-Ray 08/10/18 11:43 IMPRESSION: Normal x-ray examination of the chest. Electronically Signed: Delano Jules MD at 15:31 EST , Service support , Active Problems (Last Reviewed 08/02/18 @ 14:19 by Jocelyn Barlow) Hallux limitus of right foot (Chronic) Diabetes mellitus type 2, uncontrolled, with complications (Chronic) Venous insufficiency (Chronic) Hammer toe of right foot (Chronic) Hammer toe of left foot (Chronic) Pre-ulcerative corn or callous (Chronic) Anemia (Acute) Malnutrition (Acute) Diabetic foot ulcer (Chronic) Ulcer of right foot with fat layer exposed (Chronic) Chronic ulcer of left foot with fat layer exposed (Chronic) Type 2 diabetes mellitus with diabetic polyneuropathy (Chronic) Assessment: see above diagnoses Plan: I reviewed and discussed her care plan today. 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 Patient will have a follow-up appointment with Dr. Jordon Bradley after surgery with Dr. Diamond. Patient is to follow-up in [facility] for her menstrual cycles. Patient has been cleared for HBO treatments. Patient is to follow-up with Dr. Diamond on Tuesday
--- NOTE | 2018-08-11 11:24 | PN.PCM_ITS ---
(1) Anemia Status: Acute Current Visit: Yes Qualifiers: Anemia type: iron deficiency Code(s): D64.9 - Anemia, unspecified (2) Chronic ulcer of left foot with fat layer exposed Status: Chronic Current Visit: No Code(s): L97.522 - Non-pressure chronic ulcer of other part of left foot with fat layer exposed (3) Diabetes mellitus type 2, uncontrolled, with complications Status: Chronic Current Visit: No Code(s): E11.8 - Type 2 diabetes mellitus with unspecified complications; E11.65 - Type 2 diabetes mellitus with hyperglycemia (4) Diabetic foot ulcer Status: Chronic Current Visit: No Code(s): E11.621 - Type 2 diabetes mellitus with foot ulcer; L97.509 - Non-pressure chronic ulcer of other part of unspecified foot with unspecified severity (5) Hallux limitus of right foot Status: Chronic Current Visit: No Code(s): M20.5X1 - Other deformities of toe(s) (acquired), right foot (6) Type 2 diabetes mellitus with diabetic polyneuropathy Status: Chronic Current Visit: No Code(s): E11.42 - Type 2 diabetes mellitus with diabetic polyneuropathy (7) Venous insufficiency Status: Chronic Current Visit: No Code(s): I87.2 - Venous insufficiency (chronic) (peripheral) (8) Osteomyelitis Status: Suspected Current Visit: No Code(s): M86.9 - Osteomyelitis, unspecified (9) Malnutrition Status: Acute Current Visit: Yes Code(s): E46 - Unspecified protein-calorie malnutrition Type of Wound Chief Complaint: Bilateral foot ulcers History of Wound: This 28-year-old female with uncontrolled diabetes returns to clinic for follow-up of bilateral ulcers. She denies subjective fever, chill, nausea, vomiting. She has been compliant with the dressing recommendations. She is scheduled to get her fore[facility] She completed her MRI of the right foot yesterday and is here today to go over the results. She went through her initial screening test in preparation to start hyperbaric oxygen therapy and also asked about her test results as well. She denies fever, chill, nausea, vomiting, foot redness, or odors drainage. She has continued swelling and the top of her right foot is firm to touch. Progress of Wound: Today we went over her labs that we ordered which showed that she is anemic at 11 on a hemoglobin, prealbumin barely Made 20. Patient's venous studies show some blockages on her connectors in the GS V in the right leg and the left leg worse in the right leg. Discussed with patient that if her menstrual cycles are very heavy which she says they are she should be seen by [facility] or [facility] if she cannot afford it and be put on control pills. She states that she was on control pills before. This would control her bleeding and may be her anemia. Patient will be referred to [facility] for the legs she is to scheduled for Tuesday surgery with Dr. berg on. She is to increase her protein intake again to protein shakes per meter 30 g/day at least 1 or 2 and increase in iron 65 mg 2 times a day and she may take with Colace for stool softener. - Physical Exam General: Oriented x3, Cooperative, Well developed HEENT: Atraumatic, PERRLA Oral: Moist Mucosa Neck: Supple, No JVD Lungs: Clear to auscultation, Normal air movement Cardiovascular: Regular rate, Regular Rhythm Abdomen: Bowel Sounds Present, Soft, Non Tender, No Hepato-splenomegaly Extremities: No clubbing, No edema Musculoskeletal: No Tenderness to Palpation of Joints or Extremities Lymphatic: No Cervical, Supraclavicular, or Inguinal Adenopathy Neurological: Cranial nerves II-XII grossly intact, Neuro grossly intact Psych/Mental Status: Normal Affect, Appropriate Debridement Note No debridement was completed today Assessment/Plan Clinical Impression(s) from Imaging Studies Chest X-Ray 08/10/18 11:43 IMPRESSION: Normal x-ray examination of the chest. Electronically Signed: Delano Jules MD at 15:31 EST , Service support , Active Problems (Last Reviewed 08/02/18 @ 14:19 by Jocelyn Barlow) Hallux limitus of right foot (Chronic) Diabetes mellitus type 2, uncontrolled, with complications (Chronic) Venous insufficiency (Chronic) Hammer toe of right foot (Chronic) Hammer toe of left foot (Chronic) Pre-ulcerative corn or callous (Chronic) Anemia (Acute) Malnutrition (Acute) Diabetic foot ulcer (Chronic) Ulcer of right foot with fat layer exposed (Chronic) Chronic ulcer of left foot with fat layer exposed (Chronic) Type 2 diabetes mellitus with diabetic polyneuropathy (Chronic) Assessment: see above diagnoses Plan: I reviewed and discussed her care plan today. Today we went over all the testing discussed medication she needs to pick up man [id number] such as iron pills per meter protein shakes. Patient will have a follow-up appointment with Dr. Jordon Bradley after surgery with Dr. Diamond. Patient is to follow-up in [facility] for her menstrual cycles. Patient has been cleared for HBO treatments. Patient is to follow-up with Dr. Diamond on Tuesday
== END ==
PROVIDERS: Family Provider Internal Medicine; PCP Internal Medicine; Referring Provider Nurse Practitioner; Visit Provider Nurse Practitioner
DX: R06.02 Shortness of breath (principal)
CPT/HCPCS: 71046

== ENCOUNTER 2018-08-11 10:30 | Outpatient (RCR) | payer OTHER, SELFPAY ==
[2018-07-26 14:10] VITALS: BP 136/91; PULSE 103; RESP 18; TEMP 37.3; BMI 36.7
--- NOTE | 2018-07-26 16:20 | PCM.WC.PN ---
(1) Chronic ulcer of left foot with fat layer exposed Status: Chronic Current Visit: Yes Code(s): L97.522 - Non-pressure chronic ulcer of other part of left foot with fat layer exposed (2) Ulcer of right foot with fat layer exposed Status: Chronic Current Visit: Yes Code(s): L97.512 - Non-pressure chronic ulcer of other part of right foot with fat layer exposed (3) Hallux limitus of right foot Status: Chronic Current Visit: Yes Code(s): M20.5X1 - Other deformities of toe(s) (acquired), right foot (4) Osteomyelitis Status: Suspected Current Visit: Yes Code(s): M86.9 - Osteomyelitis, unspecified (5) Type 2 diabetes mellitus with diabetic polyneuropathy Status: Chronic Current Visit: Yes Code(s): E11.42 - Type 2 diabetes mellitus with diabetic polyneuropathy Type of Wound Date of Service: 07/26/18 Chief Complaint: Bilateral foot ulcers bilateral foot ulcers History of Wound: This 28-year-old female with uncontrolled diabetes returns to clinic for follow-up of bilateral ulcers. She denies subjective fever, chill, nausea, vomiting. She has been compliant with the dressing recommendations. She has an MRI session scheduled for the right foot. She has more availability with her current school schedule and would like to proceed with hyperbaric oxygen therapy. She denies odor or redness currently. Progress of Wound: Stable - Physical Exam Vital Signs Temp Pulse Resp BP 99.1 F 103 H 18 136/91 H 07/26/18 14:10 07/26/18 14:10 07/26/18 14:10 07/26/18 14:10 General: Alert, Oriented x3, Cooperative Extremities: No cyanosis, Capillary Refill Less than 3 Seconds, No Calf Tenderness - Negative Chiquita and Rockwell bilateral, Diminished Peripheral Pulses, Edema, - - Prominent metatarsal heads bilateral with dorsal contraction of lesser digits Skin: Ulcer/ Wound - No purulence, erythema, streaking, odor, or infection. There is decreased induration and inflammation to the right foot however deep probing is continued and I am concerned of joint or bone involvement. There is no longer any mickey tendon exposed to the left foot. The peripheral skin is atrophic with scant hair. There is no interdigital maceration bilateral. Wound Measurements and Assessment WC - Nurse 1 - General Ulcer Measurement Start: 07/26/18 14:09 Freq: Status: Active Protocol: Activity Type Activity Date Activity User E-Sign Co-Sign Detail Recorded Client Recorded Date Recorded By Document 07/26/18 14:10 AN [id number] 07/26/18 14:36 AN 07/26/18 14:10 Wound Center Nurse 1 [Ulcer Assessment] #6- RT FOOT DORSAL -Current Size (cm) - Length 0.1 -Current Size (cm) - Width 0.1 -Current Size (cm) - Depth 0.1 -Total Square Cm 0.01 -Photo Taken No -Tunneling No -Undermining/Tunneling No -Exudate Amt None Present -Granulation Amt None Present (0 %) -Necrosis Amt Large (67-100%) -Necrotic Tissue Type Eschar -Ulcer Cleansing Rinsed/ Irrigated with Saline -Foul Odor after Cleansing No #4 RIGHT GREAT TOE MEDIAL -Current Size (cm) - Length 0.1 -Current Size (cm) - Width 0.1 -Current Size (cm) - Depth 0.1 -Total Square Cm 0.01 -Photo Taken No -Epithelialization None Present -Tunneling No -Undermining/Tunneling No -Circular Undermining No -Exudate Amt None Present -Granulation Amt None Present (0 %) -Slough/Fibrin Yes -Necrosis Amt Large (67-100%) -Necrotic Tissue Type Eschar -Ulcer Cleansing Rinsed/ Irrigated with Saline #3 RIGHT FOOT PLANTAR -Current Size (cm) - Length 1.8 -Current Size (cm) - Width 1.5 -Current Size (cm) - Depth 0.8 -Total Square Cm 2.70 -Photo Taken No -Epithelialization None Present -Tunneling No -Undermining/Tunneling No -Circular Undermining No -Classification - Thickness Full Thickness without Exposed Support Structure -Exudate Amt Large -Exudate Type Serosanguineous -Wound Margin Distinct, Outline Attached -Granulation Amt Large (67-100%) -Granulation Quality Red -Slough/Fibrin Yes -Necrosis Amt Small (1-33%) -Necrotic Tissue Type Adherent Slough -Structure Exposed Fascia -Texture (Cheri-wound Skin Appearance) Assessed Scarring -Moisture (Cheri-wound Skin Appearance Assessed ) Maceration -Color (Cheri-wound Skin Appearance) Assessed -Temperature (Cheri-wound Skin No Abnormality Appearance) (Pt Warm) -Tenderness on Palpation (Cheri-wound Yes Skin Appearance) -Ulcer Cleansing Rinsed/ Irrigated with Saline -Foul Odor after Cleansing No -Anesthetic Used 4% Lidocaine Solution #1 LEFT PLANTAR -Current Size (cm) - Length 5.2 -Current Size (cm) - Width 2.4 -Current Size (cm) - Depth 0.7 -Total Square Cm 12.48 -Photo Taken No -Epithelialization None Present -Tunneling No -Undermining/Tunneling No -Circular Undermining No -Classification - Thickness Full Thickness without Exposed Support Structure -Exudate Amt Large -Exudate Type Serosanguineous -Wound Margin Distinct, Outline Attached -Granulation Amt Large (67-100%) -Granulation Quality Red -Slough/Fibrin Yes -Necrosis Amt Small (1-33%) -Necrotic Tissue Type Eschar -Structure Exposed Fascia -Texture (Cheri-wound Skin Appearance) Assessed Callus Scarring -Moisture (Cheri-wound Skin Appearance Assessed ) Maceration -Color (Cheri-wound Skin Appearance) Assessed -Temperature (Cheri-wound Skin No Abnormality Appearance) (Pt Warm) -Tenderness on Palpation (Cheri-wound Yes Skin Appearance) -Ulcer Cleansing Rinsed/ Irrigated with Saline -Foul Odor after Cleansing No -Anesthetic Used 4% Lidocaine Solution [Edema Assessment] -Right Calf (cm) 42.5 -Right Ankle (cm) 26 -Left Calf (cm) 25 WC - Nurse 2 - General Ulcer CM Notes Start: 07/26/18 14:09 Freq: Status: Active Protocol: Activity Type Activity Date Activity User E-Sign Co-Sign Detail Recorded Client Recorded Date Recorded By Document 07/26/18 14:47 [id number] 07/26/18 14:54 07/26/18 14:47 Wound Center Nurse 2 [Procedure/Treatment] #6- RT FOOT DORSAL -Correct Patient No -Correct Side, Site, Position No -Correct Procedure No -Procedure Performed No -Post Debridement Size (cm) - Length 0 -Post Debridement Size (cm) - Width 0 -Post Debridement Size (cm) - Depth 0 -Total Square Cm 0 -Wound/Ulcer Outcome Healed- Epithelialized #4 RIGHT GREAT TOE MEDIAL -Time 14:52 -Correct Patient Yes -Correct Side, Site, Position Yes -Correct Procedure Yes -Procedure Performed Yes -Type of Procedure Debridement -Clinical Debridement Subcutaneous -Post Debridement Size (cm) - Length 0.4 -Post Debridement Size (cm) - Width 0.1 -Post Debridement Size (cm) - Depth 0.1 -Total Square Cm 0.04 -Wound/Ulcer Outcome Not Healed -Ulcer Cleansing Rinsed/ Irrigated with Saline -Foul Odor after Cleansing No -Bioengineered Tissue No -Bleeding Controlled with Pressure -Offloading Yes -Type of Offloading Surgical Shoe -Treatment Response Procedure Tolerated Well #3 RIGHT FOOT PLANTAR -Time 14:52 -Correct Patient Yes -Correct Side, Site, Position Yes -Correct Procedure Yes -Procedure Performed Yes -Type of Procedure Debridement -Clinical Debridement Subcutaneous -Post Debridement Size (cm) - Length 1.8 -Post Debridement Size (cm) - Width 1.6 -Post Debridement Size (cm) - Depth 0.8 -Total Square Cm 2.88 -Wound/Ulcer Outcome Not Healed -Ulcer Cleansing Rinsed/ Irrigated with Saline -Foul Odor after Cleansing No -Bioengineered Tissue No -Bleeding Controlled with Pressure -Offloading Yes -Type of Offloading Surgical Shoe -Treatment Response Procedure Tolerated Well #1 LEFT PLANTAR -Time 14:53 -Correct Patient Yes -Correct Side, Site, Position Yes -Correct Procedure Yes -Procedure Performed Yes -Type of Procedure Debridement -Clinical Debridement Subcutaneous -Post Debridement Size (cm) - Length 5.3 -Post Debridement Size (cm) - Width 2.5 -Post Debridement Size (cm) - Depth 0.8 -Total Square Cm 13.25 -Wound/Ulcer Outcome Not Healed -Ulcer Cleansing Rinsed/ Irrigated with Saline -Bioengineered Tissue No -Bleeding Controlled with Pressure -Offloading Yes -Type of Offloading Surgical Shoe -Treatment Response Procedure Tolerated Well [See Physician Procedure note for Specifics] Pain Scale: 0-10 Numeric [Pain] -Is Patient Pain Free? Yes Musculoskeletal: No Tenderness to Palpation of Joints or Extremities, Muscle Wasting Neurological: - - Lack of epicritic sensation light touch bilateral lower extremities consistent with neuropathy Psych/Mental Status: Normal Affect, Appropriate Debridement Note Post-Debridement Measurements/Treatment WC - Nurse 2 - General Ulcer CM Notes Start: 07/26/18 14:09 Freq: Status: Active Protocol: Activity Type Activity Date Activity User E-Sign Co-Sign Detail Recorded Client Recorded Date Recorded By Document 07/26/18 14:47 AMMON [id number] 07/26/18 14:54 JF 07/26/18 14:47 Wound Center Nurse 2 #6- RT FOOT DORSAL -Correct Patient No -Correct Side, Site, Position No -Correct Procedure No -Procedure Performed No -Post Debridement Size (cm) - Length 0 -Post Debridement Size (cm) - Width 0 -Post Debridement Size (cm) - Depth 0 -Total Square Cm 0 -Wound/Ulcer Outcome Healed- Epithelialized #4 RIGHT GREAT TOE MEDIAL -Time 14:52 -Correct Patient Yes -Correct Side, Site, Position Yes -Correct Procedure Yes -Procedure Performed Yes -Type of Procedure Debridement -Clinical Debridement Subcutaneous -Post Debridement Size (cm) - Length 0.4 -Post Debridement Size (cm) - Width 0.1 -Post Debridement Size (cm) - Depth 0.1 -Total Square Cm 0.04 -Wound/Ulcer Outcome Not Healed -Ulcer Cleansing Rinsed/ Irrigated with Saline -Foul Odor after Cleansing No -Bioengineered Tissue No -Bleeding Controlled with Pressure -Offloading Yes -Type of Offloading Surgical Shoe -Treatment Response Procedure Tolerated Well #3 RIGHT FOOT PLANTAR -Time 14:52 -Correct Patient Yes -Correct Side, Site, Position Yes -Correct Procedure Yes -Procedure Performed Yes -Type of Procedure Debridement -Clinical Debridement Subcutaneous -Post Debridement Size (cm) - Length 1.8 -Post Debridement Size (cm) - Width 1.6 -Post Debridement Size (cm) - Depth 0.8 -Total Square Cm 2.88 -Wound/Ulcer Outcome Not Healed -Ulcer Cleansing Rinsed/ Irrigated with Saline -Foul Odor after Cleansing No -Bioengineered Tissue No -Bleeding Controlled with Pressure -Offloading Yes -Type of Offloading Surgical Shoe -Treatment Response Procedure Tolerated Well #1 LEFT PLANTAR -Time 14:53 -Correct Patient Yes -Correct Side, Site, Position Yes -Correct Procedure Yes -Procedure Performed Yes -Type of Procedure Debridement -Clinical Debridement Subcutaneous -Post Debridement Size (cm) - Length 5.3 -Post Debridement Size (cm) - Width 2.5 -Post Debridement Size (cm) - Depth 0.8 -Total Square Cm 13.25 -Wound/Ulcer Outcome Not Healed -Ulcer Cleansing Rinsed/ Irrigated with Saline -Bioengineered Tissue No -Bleeding Controlled with Pressure -Offloading Yes -Type of Offloading Surgical Shoe -Treatment Response Procedure Tolerated Well Pain Scale: 0-10 Numeric Is Patient Pain Free? Yes Wound debrided: plantar foot Laterality: Right Wound Grade/Stage: grade 3 Type of Debridement: Excisional debridement Anesthesia Used: 5% Lidocaine Gel Depth: in the subcutaneous layer Percentage of wound debrided: 100 Instrument Used: #15 blade Tissue Removed: fibrous, devitalized subcutaneous, biofilm, slough Severity: Fat Layer Exposed Amount of bleeding with debridement: Mild Bleeding Controlled with: Pressure Patient tolerated procedure well - Additional Wound Wound debrided: plantar hallux Laterality: Right Wound Grade/Stage: grade 1 Type of Debridement: Excisional debridement Anesthesia Used: 5% Lidocaine Gel Depth: in the subcutaneous layer Percentage of wound debrided: 100 Instrument Used: #15 blade Tissue Removed: fibrous, devitalized subcutaneous, biofilm, slough Severity: Fat Layer Exposed Amount of bleeding with debridement: Mild Bleeding Controlled with: Pressure Patient tolerated procedure: Patient tolerated procedure well - Additional Wound Wound debrided: plantar foot Laterality: Left Wound Grade/Stage: grade 3 Type of Debridement: Excisional debridement Anesthesia Used: 5% Lidocaine Gel Depth: in the subcutaneous layer Percentage of wound debrided: 100 Instrument Used: #15 blade Tissue Removed: fibrous, devitalized subcutaneous, biofilm, slough Severity: Fat Layer Exposed Amount of bleeding with debridement: Mild Bleeding Controlled with: Pressure Patient tolerated procedure: Patient tolerated procedure well Assessment/Plan Active Problems (Last Reviewed 03/30/18 @ 15:05 by Jocelyn Barlow) Hallux limitus of right foot (Chronic) Diabetes mellitus type 2, uncontrolled, with complications (Chronic) Diabetic foot ulcer (Chronic) Ulcer of right foot with fat layer exposed (Chronic) Chronic ulcer of left foot with fat layer exposed (Chronic) Type 2 diabetes mellitus with diabetic polyneuropathy (Chronic) Assessment: see above diagnoses Plan: I reviewed and discussed her care plan today. A subcutaneous excisional debridement was performed today as noted in the clinical panel to bilateral foot ulcer sites (3). It is noted that her current ulcer site is a sequela of a previous grade 3 ulcer with infected tendon deep tissue bilateral foot and the infection has resolved after recent antibiotics and ongoing wound care plan. To change other ulcer site dressings with the Aquacel Ag / fibricol. I recommended application of advanced wound healing product, in the clinical setting. Prior authorization has been initiated, and she has been denied coverage for both epi fix and Apligraf. Baseline bloodwork reviewed and most recent A1C 12.9, referral to PCP and endocrinology. Her x-rays were previously reviewed without evidence of osseous destruction, soft tissue emphysema or foreign body or other acute injuries. I am concerned of deep tissue involvement and osteomyelitis of the right foot. An MRI was ordered. This is scheduled for over a week from now and I recommend moving up so we can address her foot in timely manner. She understands bone resection may be needed due to infection or deformity purposes. The patient was educated on the importance of diet on wound healing and instructed to increase protein and vitamin C intake. To use assistive devices. I recommend more aggressive offloading. She is having difficulty using assistive devices and wheelchair which is compromising her care plan. In order provided for her to obtain bilateral forefoot offloading wedge surgical shoes and she is advised to obtain at the foot and ankle Center. The patient will follow up at wound healing center in one week at the referred center. She is also a hyperbaric oxygen therapy candidate and we discussed the indications, benefits, risks, complications, anticipated healing time management. She is not recently able to commit with her new school schedule and a hyperbaric oxygen therapy consultation session will be scheduled. It is noted she has had an EKG and chest x-ray within the past 6 months without any gross abnormalities. She is also had lab work performed within the past month which are also on file at [facility]. I answered all of her questions.
[2018-07-28 09:52] VITALS: BP 144/81; PULSE 103; RESP 16; TEMP 36.9; BMI 36.7
--- NOTE | 2018-07-28 10:42 | PCM.CONHBO ---
(1) Diabetes mellitus type 2, uncontrolled, with complications Status: Chronic Current Visit: Yes Code(s): E11.8 - Type 2 diabetes mellitus with unspecified complications; E11.65 - Type 2 diabetes mellitus with hyperglycemia (2) Diabetic foot ulcer Status: Chronic Current Visit: Yes Code(s): E11.621 - Type 2 diabetes mellitus with foot ulcer; L97.509 - Non-pressure chronic ulcer of other part of unspecified foot with unspecified severity (3) Ulcer of right foot with fat layer exposed Status: Chronic Current Visit: Yes Code(s): L97.512 - Non-pressure chronic ulcer of other part of right foot with fat layer exposed (4) Chronic ulcer of left foot with fat layer exposed Status: Chronic Current Visit: Yes Code(s): L97.522 - Non-pressure chronic ulcer of other part of left foot with fat layer exposed History of Present Illness Date of Service: 07/28/18 Presenting Chief Complaint: HBO consult for bilateral foot ulcers bilateral foot ulcers The patient is a 28 year old F who [facility] the possibility of initiating hyperbaric oxygen therapy for treatment of Licha 3 of the right plantar with toes and left plantar ulcers.. Patient has a history of being noncompliant and uncontrolled diabetes type 2 since 2014 and is currently on Lantus and Humalog and vitamin D supplement patient is obese and is going to be starting with a dietitian to control her eating and to better choices for her diet control. Patient has a previous history of cardiac arrest and surgery and will obtain a EKG again and an echocardiogram before starting HBO. Patient has history of HBO in the past and has had a barotrauma 2. We will start her with air breaks to see if tolerance is good. Arterial brachial studies were normal venous never done we will obtain venous studies at this time a chest x-ray will be obtained. Patient states she has chest pains on and off. Patient has had lesions penetrating deeper than grade 2 Waggener and has been abscessed in the past and she has shown infection near the tendon sheaths none at this time from antibiotic therapy. X-ray was negative for osteomyelitis of her foot. 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) Ulcer of right foot with necrosis of muscle (Chronic) Obesity (BMI 30.0-34.9) (Chronic) Diabetes mellitus, type II (Chronic) Allergies/Adverse Reactions: Allergies clindamycin Allergy (Verified 04/07/18 08:06) Hives vancomycin Allergy (Verified 04/07/18 08:06) Hives/makes my heart race Home Medications: Ambulatory Orders Medication Instructions Recorded Cholecalciferol (Vitamin D3) 2,000 unit PO DAILY 03/10/18 [Vitamin D3] insulin glargine (U-100) 100 68 unit SUBCUT QHS #15 ml 03/30/18 unit/mL (3 mL) subcutaneous pen amoxicillin 500 mg-potassium 1 tab PO BID 05/04/18 clavulanate 125 mg tablet blood sugar diagnostic strips See Dose Instructions .ROUTE 05/04/18 .MEDSUPPLY #100 ea insulin lispro (U- 100) 100 14 unit SC TID #15 ml 05/04/18 unit/mL subcutaneous pen Maternal Family History: Family History (Last Reviewed 03/30/18 @ 15:05 by Jocelyn Barlow) Grandfather Diabetes Leukemia Grandmother Diabetes Mother Diabetes Hypertension Father Prostate cancer Grandfather Myocardial infarction Family History: - - Patient notes a maternal family history of diabetes. Paternal Family History: Family History (Last Reviewed 03/30/18 @ 15:05 by Jocelyn Barlow) Grandfather Diabetes Leukemia Grandmother Diabetes Mother Diabetes Hypertension Father Prostate cancer Grandfather Myocardial infarction Family History: - - Patient notes a paternal family history of prostate cancer, hypertension and diabetes. Smoking Status: Never smoker Review of Systems Constitutional: Denies: Chills, Fever Eyes: Denies: Blurred vision, Drainage, Pain HEENT: Denies: Difficulty Hearing, Difficulty Swallowing, Sore Throat, Visual Changes Cardiovascular: Denies: Chest Pain, Palpitations, Syncope Respiratory: Denies: Cough, Shortness of Breath Gastrointestinal: Denies: Abdominal Pain, Nausea, Vomiting Genitourinary: Denies: Dysuria, Frequency Musculoskeletal: Denies: Joint Pain, Muscle pain Skin: Reports: - - Open ulcers right and left foot and toes. Denies: Jaundice, Rash Neurological: Denies: Balance problems, Change in Speech, Difficulty swallowing, Focal weakness Psychiatric: Denies: Anxiety, Depression Endocrine: Denies: Change in Body Habitus Hematologic/ Lymphatic: Denies: Adenopathy - Physical Exam Vital Signs Temp Pulse Resp BP 98.4 F 103 H 16 144/81 H 07/28/18 09:52 07/28/18 09:52 07/28/18 09:52 07/28/18 09:52 General: Oriented x3, Cooperative, Well developed HEENT: Atraumatic, PERRLA Oral: Moist Mucosa Neck: Supple, No JVD Lungs: Clear to auscultation, Normal air movement Cardiovascular: Regular rate, Regular Rhythm Abdomen: Bowel Sounds Present, Soft, Non Tender, No Hepato-splenomegaly Extremities: No clubbing, No edema Skin: Ulcer/ Wound - Open ulcers right and left foot and toes of right foot Wound Measurements and Assessment WC - Nurse 1 - General Ulcer Measurement Start: 07/26/18 14:09 Freq: Status: Active Protocol: Activity Type Activity Date Activity User E-Sign Co-Sign Detail Recorded Client Recorded Date Recorded By Document 07/26/18 14:10 [id number] 07/26/18 14:36 AN 07/26/18 14:10 [facility] Nurse 1 [Ulcer Assessment] #6- RT FOOT DORSAL -Current Size (cm) - Length 0.1 -Current Size (cm) - Width 0.1 -Current Size (cm) - Depth 0.1 -Total Square Cm 0.01 -Photo Taken No -Tunneling No -Undermining/Tunneling No -Exudate Amt None Present -Granulation Amt None Present (0 %) -Necrosis Amt Large (67-100%) -Necrotic Tissue Type Eschar -Ulcer Cleansing Rinsed/ Irrigated with Saline -Foul Odor after Cleansing No #4 RIGHT GREAT TOE MEDIAL -Current Size (cm) - Length 0.1 -Current Size (cm) - Width 0.1 -Current Size (cm) - Depth 0.1 -Total Square Cm 0.01 -Photo Taken No -Epithelialization None Present -Tunneling No -Undermining/Tunneling No -Circular Undermining No -Exudate Amt None Present -Granulation Amt None Present (0 %) -Slough/Fibrin Yes -Necrosis Amt Large (67-100%) -Necrotic Tissue Type Eschar -Ulcer Cleansing Rinsed/ Irrigated with Saline #3 RIGHT FOOT PLANTAR -Current Size (cm) - Length 1.8 -Current Size (cm) - Width 1.5 -Current Size (cm) - Depth 0.8 -Total Square Cm 2.70 -Photo Taken No -Epithelialization None Present -Tunneling No -Undermining/Tunneling No -Circular Undermining No -Classification - Thickness Full Thickness without Exposed Support Structure -Exudate Amt Large -Exudate Type Serosanguineous -Wound Margin Distinct, Outline Attached -Granulation Amt Large (67-100%) -Granulation Quality Red -Slough/Fibrin Yes -Necrosis Amt Small (1-33%) -Necrotic Tissue Type Adherent Slough -Structure Exposed Fascia -Texture (Cheri-wound Skin Appearance) Assessed Scarring -Moisture (Cheri-wound Skin Appearance Assessed ) Maceration -Color (Cheri-wound Skin Appearance) Assessed -Temperature (Cheri-wound Skin No Abnormality Appearance) (Pt Warm) -Tenderness on Palpation (Cheri-wound Yes Skin Appearance) -Ulcer Cleansing Rinsed/ Irrigated with Saline -Foul Odor after Cleansing No -Anesthetic Used 4% Lidocaine Solution #1 LEFT PLANTAR -Current Size (cm) - Length 5.2 -Current Size (cm) - Width 2.4 -Current Size (cm) - Depth 0.7 -Total Square Cm 12.48 -Photo Taken No -Epithelialization None Present -Tunneling No -Undermining/Tunneling No -Circular Undermining No -Classification - Thickness Full Thickness without Exposed Support Structure -Exudate Amt Large -Exudate Type Serosanguineous -Wound Margin Distinct, Outline Attached -Granulation Amt Large (67-100%) -Granulation Quality Red -Slough/Fibrin Yes -Necrosis Amt Small (1-33%) -Necrotic Tissue Type Eschar -Structure Exposed Fascia -Texture (Cheri-wound Skin Appearance) Assessed Callus Scarring -Moisture (Cheri-wound Skin Appearance Assessed ) Maceration -Color (Cheri-wound Skin Appearance) Assessed -Temperature (Cheri-wound Skin No Abnormality Appearance) (Pt Warm) -Tenderness on Palpation (Cheri-wound Yes Skin Appearance) -Ulcer Cleansing Rinsed/ Irrigated with Saline -Foul Odor after Cleansing No -Anesthetic Used 4% Lidocaine Solution [Edema Assessment] -Right Calf (cm) 42.5 -Right Ankle (cm) 26 -Left Calf (cm) 25 WC - Nurse 2 - General Ulcer CM Notes Start: 07/26/18 14:09 Freq: Status: Active Protocol: Activity Type Activity Date Activity User E-Sign Co-Sign Detail Recorded Client Recorded Date Recorded By Document 07/26/18 14:47 AMMON [id number] 07/26/18 14:54 AMMON 07/26/18 14:47 Wound Center Nurse 2 [Procedure/Treatment] #6- RT FOOT DORSAL -Correct Patient No -Correct Side, Site, Position No -Correct Procedure No -Procedure Performed No -Post Debridement Size (cm) - Length 0 -Post Debridement Size (cm) - Width 0 -Post Debridement Size (cm) - Depth 0 -Total Square Cm 0 -Wound/Ulcer Outcome Healed- Epithelialized #4 RIGHT GREAT TOE MEDIAL -Time 14:52 -Correct Patient Yes -Correct Side, Site, Position Yes -Correct Procedure Yes -Procedure Performed Yes -Type of Procedure Debridement -Clinical Debridement Subcutaneous -Post Debridement Size (cm) - Length 0.4 -Post Debridement Size (cm) - Width 0.1 -Post Debridement Size (cm) - Depth 0.1 -Total Square Cm 0.04 -Wound/Ulcer Outcome Not Healed -Ulcer Cleansing Rinsed/ Irrigated with Saline -Foul Odor after Cleansing No -Bioengineered Tissue No -Bleeding Controlled with Pressure -Offloading Yes -Type of Offloading Surgical Shoe -Treatment Response Procedure Tolerated Well #3 RIGHT FOOT PLANTAR -Time 14:52 -Correct Patient Yes -Correct Side, Site, Position Yes -Correct Procedure Yes -Procedure Performed Yes -Type of Procedure Debridement -Clinical Debridement Subcutaneous -Post Debridement Size (cm) - Length 1.8 -Post Debridement Size (cm) - Width 1.6 -Post Debridement Size (cm) - Depth 0.8 -Total Square Cm 2.88 -Wound/Ulcer Outcome Not Healed -Ulcer Cleansing Rinsed/ Irrigated with Saline -Foul Odor after Cleansing No -Bioengineered Tissue No -Bleeding Controlled with Pressure -Offloading Yes -Type of Offloading Surgical Shoe -Treatment Response Procedure Tolerated Well #1 LEFT PLANTAR -Time 14:53 -Correct Patient Yes -Correct Side, Site, Position Yes -Correct Procedure Yes -Procedure Performed Yes -Type of Procedure Debridement -Clinical Debridement Subcutaneous -Post Debridement Size (cm) - Length 5.3 -Post Debridement Size (cm) - Width 2.5 -Post Debridement Size (cm) - Depth 0.8 -Total Square Cm 13.25 -Wound/Ulcer Outcome Not Healed -Ulcer Cleansing Rinsed/ Irrigated with Saline -Bioengineered Tissue No -Bleeding Controlled with Pressure -Offloading Yes -Type of Offloading Surgical Shoe -Treatment Response Procedure Tolerated Well [See Physician Procedure note for Specifics] Pain Scale: 0-10 Numeric [Pain] -Is Patient Pain Free? Yes Musculoskeletal: No Tenderness to Palpation of Joints or Extremities Lymphatic: No Cervical, Supraclavicular, or Inguinal Adenopathy Neurological: Cranial nerves II-XII grossly intact, Neuro grossly intact Psych/Mental Status: Normal Affect, Appropriate Assessment/Plan Active Problems (Last Reviewed 03/30/18 @ 15:05 by Jocelyn Barlow) Hallux limitus of right foot (Chronic) Diabetes mellitus type 2, uncontrolled, with complications (Chronic) Diabetic foot ulcer (Chronic) Ulcer of right foot with fat layer exposed (Chronic) Chronic ulcer of left foot with fat layer exposed (Chronic) Type 2 diabetes mellitus with diabetic polyneuropathy (Chronic) DON COTTO is an appropriate candidate for hyperbaric oxygen therapy. Hyperbaric Oxygen Therapy would be an essential adjunct in the resolution and treatment of this patient's presenting problem. This patient has sufficient physiologic and psychological stamina to undergo the rigors of hyperbaric oxygen therapy. As such, I recommend the following: Hyperbaric Oxygen Treatments at 2.0 SANA in 100% Oxygen for 90 minutes per treatment, for [] treatments. I have discussed the possible benefits of hyperbaric oxygen therapy with this patient. I have also presented and described the risks, including: air gas embolism, pneumothorax, central nervous system and pulmonary oxygen toxicity, flash pulmonary edema, hypoglycemia, reversible visual refractive changes, ear and sinus anitra-trauma, and confinement anxiety. The patient has verbalized understanding of these risks, and is still wanting to undergo hyperbaric oxygen therapy. The patient understands the significant time and transportation commitment involved in daily treatments of up to two hours duration and has stated that they are willing to commit to this therapy. - HBOT Diagnosis Camacho III Diabetic Foot/Toe Ulcer (707.15/250.8) Non Healing Wound (707), Non Healing Surgical Wound (998.83) Labs hemoglobin A1c and a prealbumin EKG chest x-ray echocardiogram venous studies of the lower extremities
[2018-08-02 15:21] VITALS: BP 136/88; PULSE 102; RESP 16; TEMP 36.9; BMI 36.7
--- NOTE | 2018-08-02 16:28 | PCM.WC.PN ---
(1) Chronic ulcer of left foot with fat layer exposed Status: Chronic Current Visit: Yes Code(s): L97.522 - Non-pressure chronic ulcer of other part of left foot with fat layer exposed (2) Ulcer of right foot with fat layer exposed Status: Chronic Current Visit: Yes Code(s): L97.512 - Non-pressure chronic ulcer of other part of right foot with fat layer exposed (3) Hallux limitus of right foot Status: Chronic Current Visit: Yes Code(s): M20.5X1 - Other deformities of toe(s) (acquired), right foot (4) Osteomyelitis Status: Suspected Current Visit: Yes Code(s): M86.9 - Osteomyelitis, unspecified (5) Type 2 diabetes mellitus with diabetic polyneuropathy Status: Chronic Current Visit: Yes Code(s): E11.42 - Type 2 diabetes mellitus with diabetic polyneuropathy (6) Other specified peripheral vascular diseases Status: Suspected Current Visit: Yes Code(s): I73.89 - Other specified peripheral vascular diseases (7) Venous insufficiency Status: Suspected Current Visit: Yes Code(s): I87.2 - Venous insufficiency (chronic) (peripheral) (8) Hammer toe of right foot Status: Chronic Current Visit: Yes Code(s): M20.41 - Other hammer toe(s) (acquired), right foot (9) Hammer toe of left foot Status: Chronic Current Visit: Yes Code(s): M20.42 - Other hammer toe(s) (acquired), left foot (10) Pre-ulcerative corn or callous Status: Chronic Current Visit: Yes Code(s): L84 - Corns and callosities Type of Wound Date of Service: 08/02/18 Chief Complaint: Bilateral foot ulcers bilateral foot ulcers History of Wound: This 28-year-old female with uncontrolled diabetes returns to clinic for follow-up of bilateral ulcers. She denies subjective fever, chill, nausea, vomiting. She has been compliant with the dressing recommendations. She has an MRI session scheduled for the right foot that has completed yet. She has more availability with her current school schedule and would like to proceed with hyperbaric oxygen therapy. Her clearance is pending additional workup including updated EKG, echocardiogram, chest x-ray and lower extremity vascular studies. She denies odor or redness currently. She has fluctuating edema to the right foot and is also concerned about a deep-seated infection. She also has a callus to the left foot and asked for help safely trimming this. This is a previous ulcer and infection site and is unable to safely perform this on her own. She did not obtain her forefoot offloading wide shoes as advised. Progress of Wound: Stable. Concern for deeper tissue infection right foot - Physical Exam Vital Signs Temp Pulse Resp BP 98.4 F 102 H 16 136/88 H 08/02/18 15:21 08/02/18 15:21 08/02/18 15:21 08/02/18 15:21 General: Alert, Oriented x3, Cooperative HEENT: Atraumatic Extremities: No cyanosis, Capillary Refill Less than 3 Seconds, No Calf Tenderness - Negative Chiquita and Rockwell sign bilateral, Diminished Peripheral Pulses, Edema - Bilateral lower extremities, - - Dorsal contraction of lesser toes bilateral prominent metatarsal heads Skin: Ulcer/ Wound - No purulence, erythema, streaking, odor, eschar, probe to bone or acute infection. There is concern with deep probing to the submetatarsal region of the right foot with some continued cheri-ulcer site induration. The adjacent skin is hairless and atrophic bilateral there is no longer any exposed tendon on the left foot. The plantar right hallux ulcer site is very small and continued peripheral epithelialization is noted. There is no interdigital maceration, - - Callus sub-fifth metatarsal head without ulcer left foot Wound Measurements and Assessment WC - Nurse 1 - General Ulcer Measurement Start: 07/26/18 14:09 Freq: Status: Active Protocol: Activity Type Activity Date Activity User E-Sign Co-Sign Detail Recorded Client Recorded Date Recorded By Document 08/02/18 15:21 [facility] [id number] 08/02/18 15:39 [facility] 08/02/18 15:21 Wound Center Nurse 1 [Ulcer Assessment] #4 RIGHT GREAT TOE MEDIAL -Combined with other wound No -Current Size (cm) - Length 0.2 -Current Size (cm) - Width 0.1 -Current Size (cm) - Depth 0.1 -Total Square Cm 0.02 -Photo Taken No -Epithelialization None Present -Tunneling No -Undermining/Tunneling No -Circular Undermining No -Exudate Amt None Present -Wound Margin Flat & Intact -Granulation Amt Small (1-33%) -Granulation Quality Red -Slough/Fibrin Yes -Necrosis Amt Large (67-100%) -Necrotic Tissue Type Adherent Slough -Texture (Cheri-wound Skin Appearance) Callus Scarring -Moisture (Cheri-wound Skin Appearance Dry/Scaly ) -Color (Cheri-wound Skin Appearance) Assessed -Temperature (Cheri-wound Skin No Abnormality Appearance) (Pt Warm) -Tenderness on Palpation (Cheri-wound No Skin Appearance) -Ulcer Cleansing Wound Cleanser -Foul Odor after Cleansing No -Anesthetic Used 4% Lidocaine Solution #3 RIGHT FOOT PLANTAR -Combined with other wound No -Current Size (cm) - Length 2.2 -Current Size (cm) - Width 1.4 -Current Size (cm) - Depth 0.4 -Total Square Cm 3.08 -Photo Taken No -Epithelialization None Present -Tunneling No -Undermining/Tunneling No -Circular Undermining No -Exudate Amt Small -Exudate Type Serosanguineous -Wound Margin Thickened & Rolled Under -Granulation Amt Large (67-100%) -Granulation Quality Coco -Slough/Fibrin Yes -Necrosis Amt Small (1-33%) -Necrotic Tissue Type Adherent Slough -Texture (Cheri-wound Skin Appearance) Callus Scarring -Moisture (Cheri-wound Skin Appearance Assessed ) Maceration Dry/Scaly -Color (Cheri-wound Skin Appearance) Palor -Temperature (Cheri-wound Skin No Abnormality Appearance) (Pt Warm) -Tenderness on Palpation (Cheri-wound No Skin Appearance) -Ulcer Cleansing Wound Cleanser -Foul Odor after Cleansing No -Anesthetic Used 4% Lidocaine Solution #1 LEFT PLANTAR -Combined with other wound No -Current Size (cm) - Length 5.5 -Current Size (cm) - Width 2.3 -Current Size (cm) - Depth 0.5 -Total Square Cm 12.65 -Photo Taken No -Epithelialization Small 1-33% -Tunneling No -Undermining/Tunneling No -Circular Undermining No -Exudate Amt Large -Exudate Type Serosanguineous -Wound Margin Thickened -Granulation Amt Large (67-100%) -Granulation Quality Coco -Slough/Fibrin Yes -Necrosis Amt Small (1-33%) -Necrotic Tissue Type Adherent Slough -Texture (Cheri-wound Skin Appearance) Callus Scarring -Moisture (Cheri-wound Skin Appearance Maceration ) Dry/Scaly -Color (Cheri-wound Skin Appearance) Palor -Temperature (Cheri-wound Skin No Abnormality Appearance) (Pt Warm) -Tenderness on Palpation (Cheri-wound No Skin Appearance) -Ulcer Cleansing Wound Cleanser -Foul Odor after Cleansing No -Anesthetic Used 4% Lidocaine Solution [Edema Assessment] -Lower Limb Edema Present Yes -Right Calf (cm) 42 -Right Ankle (cm) 24.4 -Left Calf (cm) 41.6 -Left Ankle (cm) 24.5 WC - Nurse 2 - General Ulcer CM Notes Start: 07/26/18 14:09 Freq: Status: Active Protocol: Activity Type Activity Date Activity User E-Sign Co-Sign Detail Recorded Client Recorded Date Recorded By Document 08/02/18 15:55 [facility] [id number] 08/02/18 16:03 [facility] 08/02/18 15:55 Wound Center Nurse 2 [Procedure/Treatment] #4 RIGHT GREAT TOE MEDIAL -Time 15:55 -Correct Patient Yes -Correct Side, Site, Position Yes -Correct Procedure Yes -Procedure Performed Yes -Type of Procedure Debridement -Clinical Debridement Subcutaneous -Post Debridement Size (cm) - Length 0.1 -Post Debridement Size (cm) - Width 0.1 -Post Debridement Size (cm) - Depth 0.1 -Total Square Cm 0.01 -Wound/Ulcer Outcome Not Healed -Ulcer Cleansing Rinsed/ Irrigated with Saline -Foul Odor after Cleansing No -Bioengineered Tissue No -Bleeding Controlled with Pressure -Offloading Yes -Type of Offloading Surgical Shoe -Treatment Response Procedure Tolerated Well #3 RIGHT FOOT PLANTAR -Time 15:56 -Correct Patient Yes -Correct Side, Site, Position Yes -Correct Procedure Yes -Procedure Performed Yes -Type of Procedure Debridement -Clinical Debridement Subcutaneous -Post Debridement Size (cm) - Length 2.2 -Post Debridement Size (cm) - Width 1.5 -Post Debridement Size (cm) - Depth 0.4 -Total Square Cm 3.30 -Wound/Ulcer Outcome Not Healed -Ulcer Cleansing Rinsed/ Irrigated with Saline -Foul Odor after Cleansing No -Bioengineered Tissue No -Bleeding Controlled with Pressure -Offloading Yes -Type of Offloading Surgical Shoe -Treatment Response Procedure Tolerated Well #1 LEFT PLANTAR -Time 16:02 -Correct Patient Yes -Correct Side, Site, Position Yes -Correct Procedure Yes -Procedure Performed Yes -Type of Procedure Debridement -Clinical Debridement Subcutaneous -Post Debridement Size (cm) - Length 5.5 -Post Debridement Size (cm) - Width 2.4 -Post Debridement Size (cm) - Depth 0.5 -Total Square Cm 13.20 -Wound/Ulcer Outcome Not Healed -Ulcer Cleansing Rinsed/ Irrigated with Saline -Foul Odor after Cleansing No -Bioengineered Tissue No -Bleeding Controlled with Pressure -Offloading Yes -Type of Offloading Surgical Shoe -Treatment Response Procedure Tolerated Well [See Physician Procedure note for Specifics] Pain Scale: 0-10 Numeric [Pain] -Is Patient Pain Free? Yes Musculoskeletal: No Tenderness to Palpation of Joints or Extremities, Muscle Wasting, - - Decreased loaded first metatarsophalangeal joint range of motion right foot Neurological: - - Lack of normal epicritic sensation light touch bilateral lower extremities are consistent with neuropathy Psych/Mental Status: Normal Affect, Appropriate Debridement Note Post-Debridement Measurements/Treatment WC - Nurse 2 - General Ulcer CM Notes Start: 07/26/18 14:09 Freq: Status: Active Protocol: Activity Type Activity Date Activity User E-Sign Co-Sign Detail Recorded Client Recorded Date Recorded By Document 07/26/18 14:47 [id number] 07/26/18 14:54 Document 08/02/18 15:55 [id number] 08/02/18 16:03 07/26/18 08/02/18 14:47 15:55 Wound Center Nurse 2 #6- RT FOOT DORSAL -Correct Patient No -Correct Side, Site, Position No -Correct Procedure No -Procedure Performed No -Post Debridement Size (cm) - Length 0 -Post Debridement Size (cm) - Width 0 -Post Debridement Size (cm) - Depth 0 -Total Square Cm 0 -Wound/Ulcer Outcome Healed- Epithelialized #4 RIGHT GREAT TOE MEDIAL -Time 14:52 15:55 -Correct Patient Yes Yes -Correct Side, Site, Position Yes Yes -Correct Procedure Yes Yes -Procedure Performed Yes Yes -Type of Procedure Debridement Debridement -Clinical Debridement Subcutaneous Subcutaneous -Post Debridement Size (cm) - Length 0.4 0.1 -Post Debridement Size (cm) - Width 0.1 0.1 -Post Debridement Size (cm) - Depth 0.1 0.1 -Total Square Cm 0.04 0.01 -Wound/Ulcer Outcome Not Healed Not Healed -Ulcer Cleansing Rinsed/ Rinsed/ Irrigated with Irrigated with Saline Saline -Foul Odor after Cleansing No No -Bioengineered Tissue No No -Bleeding Controlled with Pressure Pressure -Offloading Yes Yes -Type of Offloading Surgical Shoe Surgical Shoe -Treatment Response Procedure Procedure Tolerated Well Tolerated Well #3 RIGHT FOOT PLANTAR -Time 14:52 15:56 -Correct Patient Yes Yes -Correct Side, Site, Position Yes Yes -Correct Procedure Yes Yes -Procedure Performed Yes Yes -Type of Procedure Debridement Debridement -Clinical Debridement Subcutaneous Subcutaneous -Post Debridement Size (cm) - Length 1.8 2.2 -Post Debridement Size (cm) - Width 1.6 1.5 -Post Debridement Size (cm) - Depth 0.8 0.4 -Total Square Cm 2.88 3.30 -Wound/Ulcer Outcome Not Healed Not Healed -Ulcer Cleansing Rinsed/ Rinsed/ Irrigated with Irrigated with Saline Saline -Foul Odor after Cleansing No No -Bioengineered Tissue No No -Bleeding Controlled with Pressure Pressure -Offloading Yes Yes -Type of Offloading Surgical Shoe Surgical Shoe -Treatment Response Procedure Procedure Tolerated Well Tolerated Well #1 LEFT PLANTAR -Time 14:53 16:02 -Correct Patient Yes Yes -Correct Side, Site, Position Yes Yes -Correct Procedure Yes Yes -Procedure Performed Yes Yes -Type of Procedure Debridement Debridement -Clinical Debridement Subcutaneous Subcutaneous -Post Debridement Size (cm) - Length 5.3 5.5 -Post Debridement Size (cm) - Width 2.5 2.4 -Post Debridement Size (cm) - Depth 0.8 0.5 -Total Square Cm 13.25 13.20 -Wound/Ulcer Outcome Not Healed Not Healed -Ulcer Cleansing Rinsed/ Rinsed/ Irrigated with Irrigated with Saline Saline -Foul Odor after Cleansing No -Bioengineered Tissue No No -Bleeding Controlled with Pressure Pressure -Offloading Yes Yes -Type of Offloading Surgical Shoe Surgical Shoe -Treatment Response Procedure Procedure Tolerated Well Tolerated Well Pain Scale: 0-10 Numeric Is Patient Pain Free? Yes Yes Wound debrided: plantar hallux Laterality: Right Wound Grade/Stage: grade 1 Type of Debridement: Excisional debridement Anesthesia Used: 5% Lidocaine Gel Depth: in the subcutaneous layer Percentage of wound debrided: 100 Instrument Used: #15 blade Tissue Removed: fibrous, devitalized subcutaneous, biofilm, slough Severity: Fat Layer Exposed Amount of bleeding with debridement: Mild Bleeding Controlled with: Pressure Patient tolerated procedure well - Additional Wound Wound debrided: plantar foot Laterality: Right Wound Grade/Stage: grade 3 Type of Debridement: Excisional debridement Anesthesia Used: 5% Lidocaine Gel Depth: in the subcutaneous layer Percentage of wound debrided: 100 Instrument Used: #15 blade Tissue Removed: fibrous, devitalized subcutaneous, biofilm, slough Severity: Fat Layer Exposed Amount of bleeding with debridement: Mild Bleeding Controlled with: Pressure Patient tolerated procedure: Patient tolerated procedure well - Additional Wound Wound debrided: plantar foot Laterality: Left Wound Grade/Stage: grade 3 Type of Debridement: Excisional debridement Anesthesia Used: 5% Lidocaine Gel Depth: in the subcutaneous layer Percentage of wound debrided: 100 Instrument Used: #15 blade Tissue Removed: fibrous, devitalized subcutaneous, biofilm, slough Severity: Fat Layer Exposed Amount of bleeding with debridement: Mild Bleeding Controlled with: Pressure Patient tolerated procedure: Patient tolerated procedure well Assessment/Plan Active Problems (Last Reviewed 08/02/18 @ 14:19 by Jocelyn Barlow) Hallux limitus of right foot (Chronic) Diabetes mellitus type 2, uncontrolled, with complications (Chronic) Hammer toe of right foot (Chronic) Hammer toe of left foot (Chronic) Pre-ulcerative corn or callous (Chronic) Diabetic foot ulcer (Chronic) Ulcer of right foot with fat layer exposed (Chronic) Chronic ulcer of left foot with fat layer exposed (Chronic) Type 2 diabetes mellitus with diabetic polyneuropathy (Chronic) Assessment: see above diagnoses Plan: I reviewed and discussed her care plan today. A subcutaneous excisional debridement was performed today as noted in the clinical panel to bilateral foot ulcer sites (2). To change daily with fibricol. It is noted that her current ulcer site is a sequela of a previous grade 3 ulcer with infected tendon deep tissue bilateral foot and the infection has resolved after recent antibiotics and ongoing wound care plan. To change other ulcer site dressings with the Aquacel Ag / fibricol. I recommended application of advanced wound healing product, in the clinical setting. Prior authorization has been initiated, and she has been denied coverage for both epi fix and Apligraf. Baseline bloodwork reviewed and most recent A1C 12.9 decreased to less than 9 now. To continue to follow-up for medical management with PCP and endocrinology. Her x-rays were previously reviewed without evidence of osseous destruction, soft tissue emphysema or foreign body or other acute injuries. I am concerned of deep tissue involvement and osteomyelitis of the right foot. An MRI was ordered and this test is still pending. She understands bone resection may be needed due to infection or deformity purposes. The patient was educated on the importance of diet on wound healing and instructed to increase protein and vitamin C intake. To use assistive devices. I recommend more aggressive offloading. She is having difficulty using assistive devices and wheelchair which is compromising her care plan. In order provided for her to obtain bilateral forefoot offloading wedge surgical shoes and she is advised to obtain at the foot and ankle Center. She did not obtain this yet and compliance was discussed. I debrided her callus with a 15 blade to the left foot to reduce pressure and prevent further wound formation. No incident was noted and she tolerated this well. The patient will follow up at wound healing center in one week at the referred center. . She is also a hyperbaric oxygen therapy candidate and we discussed the indications, benefits, risks, complications, anticipated healing time management. 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 Updated procedure diagnostic data was ordered and the results are pending. She will have most of these test completed next Tuesday and Tuesday including echocardiogram, chest x-ray, lower extremity arterial and venous studies, MRI of the right foot. She also had lab work performed within the past month which are also on file at [facility]. I answered all of her questions.
--- NOTE | 2018-08-08 10:36 | MRI_ITS ---
We are attempting to reach GEE BARNES to discuss findings. An addendum with communication details will be sent when the communication is complete. STUDY: MRI RIGHT MIDFOOT REASON FOR EXAM: Open wound at the plantar surface of the distal metatarsal, 2 prior surgeries. Evaluate osteomyelitis. TECHNIQUE: Standardized fat and water weighted pulse sequences were obtained in all 3 orthogonal planes. COMPARISON: Radiographs 07/18/2018. FINDINGS: Normal talonavicular articulation. Normal calcaneocuboid articulation. Normal navicular-cuneiform articulations. Normal intercuneiform articulations. There is very mild bone edema in the medial cuneiform (inversion recovery sagittal images 6, 7), a stress phenomenon. Normal first tarsometatarsal articulation. Normal Lisfranc ligament. Normal second and third tarsometatarsal articulations. Normal cuboid fourth and cuboid fifth tarsometatarsal articulation. There is bone edema in the head and neck of the third metatarsal (inversion recovery sagittal image 17) with mild corresponding decreased T1 bone marrow signal (T1 sagittal image 17) suspicious of osteomyelitis. There is mild bone edema of the third proximal phalanx (inversion recovery sagittal images 18, 19) and fourth proximal phalanx (inversion recovery sagittal image 23) without corresponding decreased T1 bone marrow signal and therefore more suggestive of reactive bone edema rather than osteomyelitis. Normal tibialis anterior tendon. Normal extensor hallucis longus tendon. Normal extensor digitorum longus tendons. Normal peroneus longus tendon and distal insertion. Normal peroneus brevis tendon and distal insertion. There is mild edema in the intrinsic muscles of the midfoot/forefoot (inversion recovery sagittal images 10-14) suggestive of mild myositis. There is an ulcer at the plantar aspect of the third metatarsal head. There is a fluid collection containing small pockets of gas at the dorsal aspect of the third webspace (T2 series 6 image 24), suggestive of an abscess measuring 1.4 x 0.8 cm (AP x transverse). MRI/Lower Ext/No Jt/w/o IMPRESSION: Fluid collection at the dorsal aspect of the third webspace suggestive of abscess. Signal alteration of the head/neck of the third metatarsal suspicious of osteomyelitis. Mild bone edema of the third and fourth proximal phalanges, either reactive bone edema or osteomyelitis. Mild edema in the intrinsic muscles of the midfoot and forefoot suggestive of mild myositis. Very mild bone edema of the medial cuneiform, a stress phenomenon. Electronically Signed: Spike Bird MD at 14:06 EST Tel , Service support ,
[2018-08-09 14:10] VITALS: BP 127/64; PULSE 110; RESP 18; TEMP 36.6; BMI 36.7
--- NOTE | 2018-08-09 15:49 | PN.PCM_ITS ---
(1) Chronic ulcer of left foot with fat layer exposed Status: Chronic Current Visit: Yes Code(s): L97.522 - Non-pressure chronic ulcer of other part of left foot with fat layer exposed (2) Ulcer of right foot with fat layer exposed Status: Chronic Current Visit: Yes Code(s): L97.512 - Non-pressure chronic ulcer of other part of right foot with fat layer exposed (3) Hallux limitus of right foot Status: Chronic Current Visit: Yes Code(s): M20.5X1 - Other deformities of toe(s) (acquired), right foot (4) Osteomyelitis Status: Suspected Current Visit: Yes Code(s): M86.9 - Osteomyelitis, unspecified (5) Type 2 diabetes mellitus with diabetic polyneuropathy Status: Chronic Current Visit: Yes Code(s): E11.42 - Type 2 diabetes mellitus with diabetic polyneuropathy (6) Venous insufficiency Status: Chronic Current Visit: Yes Code(s): I87.2 - Venous insufficiency (chronic) (peripheral) (7) Hammer toe of right foot Status: Chronic Current Visit: Yes Code(s): M20.41 - Other hammer toe(s) (acquired), right foot (8) Hammer toe of left foot Status: Chronic Current Visit: Yes Code(s): M20.42 - Other hammer toe(s) (acquired), left foot Type of Wound Date of Service: 08/09/18 Chief Complaint: Bilateral foot ulcers History of Wound: This 28-year-old female with uncontrolled diabetes returns to clinic for follow-up of bilateral ulcers. She denies subjective fever, chill, nausea, vomiting. She has been compliant with the dressing recommendations. She is scheduled to get her forefoot wedge offloading [facility]. She completed her MRI of the right foot yesterday and is here today to go over the results. She went through her initial screening test in preparation to start hyperbaric oxygen therapy and also asked about her test results as well. She denies fever, chill, nausea, vomiting, foot redness, or odors drainage. She has continued swelling and the top of her right foot is fir m to touch. Progress of Wound: Stable bilateral plantar ulcers. Concern for deeper tissue infection right foot - Physical Exam Vital Signs Temp Pulse Resp BP 97.9 F 110 H 18 127/64 H 08/09/18 14:10 08/09/18 14:10 08/09/18 14:10 08/09/18 14:10 General: Alert, Oriented x3, Cooperative Extremities: No cyanosis, Capillary Refill Less than 3 Seconds, No Calf Tenderness - Negative Chiquita and Rockwell sign bilateral, Edema - Mild bilateral lower extremities, Peripheral Pulses Normal - Palpable DP pulses bilateral, - - Dorsal contraction of lesser toes with prominent metatarsal heads bilateral. Right foot plantar ulcer probes to andand communicates with dorsal foot Skin: Ulcer/ Wound - No purulence or odor on expression of bilateral foot ulcers. No streaking. There is inflammation continued with indurated tissue to the dorsal right foot. The right plantar foot ulcer site probes deep. There is peripheral epithelialization to the plantar right hallux ulcer. There is no longer any exposed tendon to the plantar left ulcer, - - The peripheral skin is hairless and atrophic bilateral Wound Measurements and Assessment WC - Nurse 1 - General Ulcer Measurement Start: 07/26/18 14:09 Freq: Status: Active Protocol: Activity Type Activity Date Activity User E-Sign Co-Sign Detail Recorded Client Recorded Date Recorded By Document 08/09/18 14:10 DL [id number] 08/09/18 14:22 DL 08/09/18 14:10 Wound Center Nurse 1 [Ulcer Assessment] #4 RIGHT GREAT TOE MEDIAL -Current Size (cm) - Length 0.2 -Current Size (cm) - Width 0.2 -Current Size (cm) - Depth 0.2 -Total Square Cm 0.04 -Photo Taken No -Maximum Distance #2 (cm) 0.2 -Circular Undermining Yes -Exudate Amt Small -Exudate Type Serosanguineous -Wound Margin Thickened -Granulation Amt Small (1-33%) -Granulation Quality Red -Necrosis Amt Small (1-33%) -Necrotic Tissue Type Adherent Slough -Structure Exposed N/A -Texture (Cheri-wound Skin Appearance) Callus -Moisture (Cheri-wound Skin Appearance Dry/Scaly ) -Color (Cheri-wound Skin Appearance) No Abnormality -Temperature (Cheri-wound Skin No Abnormality Appearance) (Pt Warm) -Tenderness on Palpation (Cheri-wound No Skin Appearance) -Ulcer Cleansing Wound Cleanser -Foul Odor after Cleansing No -Anesthetic Used 4% Lidocaine Solution #3 RIGHT FOOT PLANTAR -Current Size (cm) - Length 2.1 -Current Size (cm) - Width 1.7 -Current Size (cm) - Depth 0.4 -Total Square Cm 3.57 -Photo Taken No -Exudate Amt Medium -Exudate Type Serosanguineous -Wound Margin Thickened & Rolled Under -Granulation Amt Large (67-100%) -Granulation Quality Red -Necrosis Amt None Present (0 %) -Structure Exposed N/A -Texture (Cheri-wound Skin Appearance) Callus Localized Edema -Moisture (Cheri-wound Skin Appearance No Abnormality ) -Color (Cheri-wound Skin Appearance) Erythema Rubor -Temperature (Cheri-wound Skin No Abnormality Appearance) (Pt Warm) -Tenderness on Palpation (Cheri-wound Yes Skin Appearance) -Ulcer Cleansing Wound Cleanser -Foul Odor after Cleansing No -Anesthetic Used 4% Lidocaine Solution #1 LEFT PLANTAR -Current Size (cm) - Length 5.3 -Current Size (cm) - Width 2.5 -Current Size (cm) - Depth 0.5 -Total Square Cm 13.25 -Photo Taken No -Exudate Amt Medium -Exudate Type Serosanguineous -Wound Margin Thickened -Granulation Amt Large (67-100%) -Granulation Quality Red -Necrosis Amt Small (1-33%) -Necrotic Tissue Type Adherent Slough -Structure Exposed N/A -Texture (Cheri-wound Skin Appearance) Callus Localized Edema Scarring -Moisture (Cheri-wound Skin Appearance Dry/Scaly ) -Color (Cheri-wound Skin Appearance) Erythema Rubor -Temperature (Cheri-wound Skin No Abnormality Appearance) (Pt Warm) -Tenderness on Palpation (Cheri-wound No Skin Appearance) -Ulcer Cleansing Wound Cleanser -Foul Odor after Cleansing No -Anesthetic Used 4% Lidocaine Solution [Edema Assessment] -Right Calf (cm) 39.3 -Right Ankle (cm) 23.8 -Left Calf (cm) 39.5 -Left Ankle (cm) 23 WC - Nurse 2 - General Ulcer CM Notes Start: 07/26/18 14:09 Freq: Status: Active Protocol: Activity Type Activity Date Activity User E-Sign Co-Sign Detail Recorded Client Recorded Date Recorded By Document 08/09/18 15:13 AMMON [id number] 08/09/18 15:17 AMMON 08/09/18 15:13 Wound Center Nurse 2 [Procedure/Treatment] #4 RIGHT GREAT TOE MEDIAL -Time 15:13 -Correct Patient Yes -Correct Side, Site, Position Yes -Correct Procedure Yes -Procedure Performed Yes -Type of Procedure Debridement -Clinical Debridement Subcutaneous -Post Debridement Size (cm) - Length 0.4 -Post Debridement Size (cm) - Width 0.2 -Post Debridement Size (cm) - Depth 0.2 -Total Square Cm 0.08 -Wound/Ulcer Outcome Not Healed -Ulcer Cleansing Rinsed/ Irrigated with Saline -Foul Odor after Cleansing No -Bioengineered Tissue No -Bleeding Controlled with Pressure -Offloading Yes -Type of Offloading Surgical Shoe -Treatment Response Procedure Tolerated Well #3 RIGHT FOOT PLANTAR -Time 15:14 -Correct Patient Yes -Correct Side, Site, Position Yes -Correct Procedure Yes -Procedure Performed Yes -Type of Procedure Debridement -Clinical Debridement Subcutaneous -Post Debridement Size (cm) - Length 2.2 -Post Debridement Size (cm) - Width 1.8 -Post Debridement Size (cm) - Depth 0.4 -Total Square Cm 3.96 -Wound/Ulcer Outcome Not Healed -Ulcer Cleansing Rinsed/ Irrigated with Saline -Foul Odor after Cleansing No -Bioengineered Tissue No -Bleeding Controlled with Pressure -Offloading Yes -Type of Offloading Surgical Shoe -Treatment Response Procedure Tolerated Well #1 LEFT PLANTAR -Time 15:14 -Correct Patient Yes -Correct Side, Site, Position Yes -Correct Procedure Yes -Procedure Performed Yes -Type of Procedure Debridement -Clinical Debridement Subcutaneous -Post Debridement Size (cm) - Length 5.3 -Post Debridement Size (cm) - Width 2.6 -Post Debridement Size (cm) - Depth 0.5 -Total Square Cm 13.78 -Wound/Ulcer Outcome Not Healed -Ulcer Cleansing Rinsed/ Irrigated with Saline -Foul Odor after Cleansing No -Bioengineered Tissue No -Bleeding Controlled with Pressure -Offloading Yes -Type of Offloading Surgical Shoe -Treatment Response Procedure Tolerated Well [See Physician Procedure note for Specifics] Pain Scale: 0-10 Numeric [Pain] -Is Patient Pain Free? Yes Musculoskeletal: No Tenderness to Palpation of Joints or Extremities, Muscle Wasting Neurological: - - Lack of epicritic sensation light touch bilateral lower extremities Psych/Mental Status: Normal Affect, Appropriate Debridement Note Post-Debridement Measurements/Treatment WC - Nurse 2 - General Ulcer CM Notes Start: 07/26/18 14:09 Freq: Status: Active Protocol: Activity Type Activity Date Activity User E-Sign Co-Sign Detail Recorded Client Recorded Date Recorded By Document 07/26/18 14:47 [id number] 07/26/18 14:54 Document 08/02/18 15:55 [id number] 08/02/18 16:03 Document 08/09/18 15:13 [id number] 08/09/18 15:17 07/26/18 08/02/18 08/09/18 14:47 15:55 15:13 Wound Center Nurse 2 #6- RT FOOT DORSAL -Correct Patient No -Correct Side, Site, Position No -Correct Procedure No -Procedure Performed No -Post Debridement Size (cm) - Length 0 -Post Debridement Size (cm) - Width 0 -Post Debridement Size (cm) - Depth 0 -Total Square Cm 0 -Wound/Ulcer Outcome Healed- Epithelialized #4 RIGHT GREAT TOE MEDIAL -Time 14:52 15:55 15:13 -Correct Patient Yes Yes Yes -Correct Side, Site, Position Yes Yes Yes -Correct Procedure Yes Yes Yes -Procedure Performed Yes Yes Yes -Type of Procedure Debridement Debridement Debridement -Clinical Debridement Subcutaneous Subcutaneous Subcutaneous -Post Debridement Size (cm) - Length 0.4 0.1 0.4 -Post Debridement Size (cm) - Width 0.1 0.1 0.2 -Post Debridement Size (cm) - Depth 0.1 0.1 0.2 -Total Square Cm 0.04 0.01 0.08 -Wound/Ulcer Outcome Not Healed Not Healed Not Healed -Ulcer Cleansing Rinsed/ Rinsed/ Rinsed/ Irrigated with Irrigated with Irrigated with Saline Saline Saline -Foul Odor after Cleansing No No No -Bioengineered Tissue No No No -Bleeding Controlled with Pressure Pressure Pressure -Offloading Yes Yes Yes -Type of Offloading Surgical Shoe Surgical Shoe Surgical Shoe -Treatment Response Procedure Procedure Procedure Tolerated Well Tolerated Well Tolerated Well #3 RIGHT FOOT PLANTAR -Time 14:52 15:56 15:14 -Correct Patient Yes Yes Yes -Correct Side, Site, Position Yes Yes Yes -Correct Procedure Yes Yes Yes -Procedure Performed Yes Yes Yes -Type of Procedure Debridement Debridement Debridement -Clinical Debridement Subcutaneous Subcutaneous Subcutaneous -Post Debridement Size (cm) - Length 1.8 2.2 2.2 -Post Debridement Size (cm) - Width 1.6 1.5 1.8 -Post Debridement Size (cm) - Depth 0.8 0.4 0.4 -Total Square Cm 2.88 3.30 3.96 -Wound/Ulcer Outcome Not Healed Not Healed Not Healed -Ulcer Cleansing Rinsed/ Rinsed/ Rinsed/ Irrigated with Irrigated with Irrigated with Saline Saline Saline -Foul Odor after Cleansing No No No -Bioengineered Tissue No No No -Bleeding Controlled with Pressure Pressure Pressure -Offloading Yes Yes Yes -Type of Offloading Surgical Shoe Surgical Shoe Surgical Shoe -Treatment Response Procedure Procedure Procedure Tolerated Well Tolerated Well Tolerated Well #1 LEFT PLANTAR -Time 14:53 16:02 15:14 -Correct Patient Yes Yes Yes -Correct Side, Site, Position Yes Yes Yes -Correct Procedure Yes Yes Yes -Procedure Performed Yes Yes Yes -Type of Procedure Debridement Debridement Debridement -Clinical Debridement Subcutaneous Subcutaneous Subcutaneous -Post Debridement Size (cm) - Length 5.3 5.5 5.3 -Post Debridement Size (cm) - Width 2.5 2.4 2.6 -Post Debridement Size (cm) - Depth 0.8 0.5 0.5 -Total Square Cm 13.25 13.20 13.78 -Wound/Ulcer Outcome Not Healed Not Healed Not Healed -Ulcer Cleansing Rinsed/ Rinsed/ Rinsed/ Irrigated with Irrigated with Irrigated with Saline Saline Saline -Foul Odor after Cleansing No No -Bioengineered Tissue No No No -Bleeding Controlled with Pressure Pressure Pressure -Offloading Yes Yes Yes -Type of Offloading Surgical Shoe Surgical Shoe Surgical Shoe -Treatment Response Procedure Procedure Procedure Tolerated Well Tolerated Well Tolerated Well Pain Scale: 0-10 Numeric Is Patient Pain Free? Yes Yes Yes Wound debrided: plantar hallux Laterality: Right Wound Grade/Stage: grade 1 Type of Debridement: Excisional debridement Anesthesia Used: 5% Lidocaine Gel Depth: in the subcutaneous layer Percentage of wound debrided: 100 Instrument Used: #15 blade Tissue Removed: fibrous, devitalized subcutaneous, biofilm, slough Severity: Fat Layer Exposed Amount of bleeding with debridement: Mild Bleeding Controlled with: Pressure Patient tolerated procedure well - Additional Wound Wound debrided: plantar central metatarsal Laterality: Right Wound Grade/Stage: grade 3 Type of Debridement: Excisional debridement Anesthesia Used: 5% Lidocaine Gel Depth: in the subcutaneous layer Percentage of wound debrided: 100 Instrument Used: #15 blade Tissue Removed: fibrous, devitalized subcutaneous, biofilm, slough Severity: Fat Layer Exposed Amount of bleeding with debridement: Mild Bleeding Controlled with: Pressure Patient tolerated procedure: Patient tolerated procedure well - Additional Wound Wound debrided: plantar medial foot Laterality: Left Wound Grade/Stage: grade 3 Type of Debridement: Excisional debridement Anesthesia Used: 5% Lidocaine Gel Depth: in the subcutaneous layer Percentage of wound debrided: 100 Instrument Used: #15 blade Tissue Removed: fibrous, devitalized subcutaneous, biofilm, slough Severity: Fat Layer Exposed Amount of bleeding with debridement: Mild Bleeding Controlled with: Pressure Patient tolerated procedure: Patient tolerated procedure well Assessment/Plan Clinical Impression(s) from Imaging Studies Lower Extremity MRI 08/08/18 10:36 IMPRESSION: Fluid collection at the dorsal aspect of the third webspace suggestive of abscess. Signal alteration of the head/neck of the third metatarsal suspicious of osteomyelitis. Mild bone edema of the third and fourth proximal phalanges, either reactive bone edema or osteomyelitis. Mild edema in the intrinsic muscles of the midfoot and forefoot suggestive of mild myositis. Very mild bone edema of the medial cuneiform, a stress phenomenon. Electronically Signed: Spike Bird MD at 14:06 EST Tel , Service support , ADDENDUM: 08/09/18 1432 IMPRESSION: Fluid collection at the dorsal aspect of the third webspace suggestive of abscess. Signal alteration of the head/neck of the third metatarsal suspicious of osteomyelitis. Mild bone edema of the third and fourth proximal phalanges, either reactive bone edema or osteomyelitis. Mild edema in the intrinsic muscles of the midfoot and forefoot suggestive of mild myositis. Very mild bone edema of the medial cuneiform, a stress phenomenon. N.B. : The above information has been verbally conveyed by Spike Bird MD to Dr. Calvin MD, on 08/09/2018 14:24:02 (ET). Electronically Signed: Spike Bird MD at 14:06 EST Tel , Service support , Active Problems (Last Reviewed 08/02/18 @ 14:19 by Jocelyn Barlow) Hallux limitus of right foot (Chronic) Diabetes mellitus type 2, uncontrolled, with complications (Chronic) Venous insufficiency (Chronic) Hammer toe of right foot (Chronic) Hammer toe of left foot (Chronic) Pre-ulcerative corn or callous (Chronic) Diabetic foot ulcer (Chronic) Ulcer of right foot with fat layer exposed (Chronic) Chronic ulcer of left foot with fat layer exposed (Chronic) Type 2 diabetes mellitus with diabetic polyneuropathy (Chronic) Assessment: see above diagnoses Plan: I reviewed and discussed her care plan today. A subcutaneous excisional debridement was performed today as noted in the clinical panel to bilateral foot ulcer sites (2). To change daily with fibricol. It is noted that her current ulcer site is a sequela of a previous grade 3 ulcer with infected tendon deep tissue bilateral foot and the infection has resolved after recent antibiotics and ongoing wound care plan. To change other ulcer site dressings with the Aquacel Ag / fibricol. Baseline bloodwork reviewed and most recent A1C 12.9 decreased to less than 9 now. To continue to follow-up for medical management with PCP and endocrinology. She recently saw . her x-rays were previously reviewed without evidence of osseous destruction, soft tissue emphysema or foreign body or other acute injuries. I am concerned of deep tissue involvement and osteomyelitis of the right foot. An MRI was ordered in the imaging and results were reviewed. There is fluid and air collection to the third interspace and this appears to be communicating and in alignment with the plantar right s chronic ulcer site. There is also increased intensity to the third metatarsal head and this is concerning for osteomyelitis and also correlates clinically with the area of concern. I do recommend surgical excision of the third metatarsal phalangeal joint of metatarsal head with incision and drainage of the right foot. I also recommend debridement of the other ulcer sites with application of advanced wound care products such as epi cord or amnio fill at this time in the operating room. The preoperative indications, planned procedure, possible benefits, risks, complications, and anticipated healing time and management were discussed in detail with the patient. No guarantees were made. She understands and elects to proceed with surgery at this time. She understands a preoperative history and physical exam will need to be obtained and the goal is to have this procedure done within the next 1-2 weeks. I answered all her questions. electronic funds transfer coordinator nurse, Kenton, will contact her to further facilitate the scheduling. Informed surgical consent is made to be signed. The anticipated anesthesia is MAC and local to bilateral lower extremities. This may also be considered for outpatient surgery. The patient was educated on the importance of diet on wound healing and instructed to increase protein and vitamin C intake. To use assistive devices. To continue follow-up with nutrition services. I recommend more aggressive offloading. She is having difficulty using assistive devices and wheelchair which is compromising her care plan. In order provided for her to obtain bilateral forefoot offloading wedge surgical shoes and she is advised to obtain at the [facility]. She did not obtain this yet and compliance was discussed. She is scheduled to have this fitted tomorrow at 1 PM. . She is also a hyperbaric oxygen therapy candidate and we discussed the indications, benefits, risks, complications, anticipated healing time management. 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 Updated procedure diagnostic data was ordered. Her echocardiogram results were reviewed with an ejection fraction of 55%. The chest x-ray will be completed tomorrow and these results are pending. She also had lab work performed within the past month which are also on file at [facility]; these are stable. Her most recent noninvasive vascular studies were reviewed from April 2018 with bilateral ankle-brachial indices 1.23. Her results demonstrated normal arterial perfusion. Her venous duplex Doppler studies with reflux evaluation were also reviewed and the results were discussed. 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 I do recommend future vascular surgeon referral to see if intervention may be completed. I recommend focusing on her surgery and initiation of hyperbaric oxygen therapy as a priority at this time. She is tentatively scheduled to follow-up with the wound healing center 1 week if not surgery prior to that time. To call sooner if there are any questions or status changes.
[2018-08-11 10:39] VITALS: BP 135/84; PULSE 99; RESP 16; TEMP 37; BMI 36.7
== END 2018-08-17 23:59 ==
LOC: WC 10:30
PROVIDERS: Family Provider Internal Medicine; PCP Internal Medicine; Referring Provider Podiatrist; Visit Provider Podiatrist
DX: E11.621 Type 2 diabetes mellitus with foot ulcer (principal); L97.512 Non-pressure chronic ulcer of other part of right foot with fat layer exposed; E11.42 Type 2 diabetes mellitus with diabetic polyneuropathy; E11.65 Type 2 diabetes mellitus with hyperglycemia; L97.522 Non-pressure chronic ulcer of other part of left foot with fat layer exposed; M20.5X1 Other deformities of toe(s) (acquired), right foot; Z86.74 Personal history of sudden cardiac arrest
CPT/HCPCS: 11042; 73718; 99212; G0463

== ENCOUNTER 2018-08-15 11:34 | Day surgery (SDC) | payer OTHER, SELFPAY ==
[2018-08-09 14:10] VITALS: BMI 36.7
[2018-08-15 11:57] LABS: Internal QC Validated? YES +Cl - CLEAR BKGD; Pregnancy, Urine Negative Negative
[2018-08-15 12:05] VITALS: BP 129/76; PULSE 100; RESP 18; TEMP 36.7; O2SAT 98; BMI 38.3
[2018-08-15 12:16] LABS: International Normalized Ratio 1.1; Partial Thromboplast Time 33.5 Seconds (24.1-36.2)
[2018-08-15 12:35] LABS: Bedside Glucose 229 mg/dL (70-110)
[2018-08-15] MEDS: Bupivacaine Mpf 0.5% 30 ML VIAL (13:20)
--- NOTE | 2018-08-15 13:30 | BON_PTH ---
PATIENT: DON COTTO LOC: [facility] [place] U#:[id number] AGE/SX: 28/F ROOM: RE08/15/[address]: Dr. Addie Simpson DPM : 1990 BED: DIS: 08/15/2018 SPEC #: [id number] RECD: 08/16/18 16:19 STATUS: TYLER REBryn #: [id number] ZAHEER: 08/15/18 13:[address]: Addie Simpson DEPT: SURGICAL PATHOLOGY RECD BY: Geraldo Koch ENTERED: 08/17/18 12:59 SP TYPE: Bone OTHR DR: Dr. Raman Shepard MD Tissues: A - Bone of foot, NOS B - Bone of foot, NOS Procedures: Decalcification bone/plaque Surgery Specimen Level IV HEADER OPERATION: Right foot I & D, debridement nonviable soft tissue, third metatarsal PRE-OP DIAGNOSIS: Left foot - chronic foot ulcer; right foot - osteomyelitis, chronic foot ulcer TISSUE SUBMITTED: A - Clearance fragment third metatarsal right foot, B - Third metatarsal head right foot MICROSCOPIC DIAGNOSIS A. Bone of right foot, clearance fragment, third metatarsal, biopsy: Bone with mild reactive change. No evidence of osteomyelitis. B. Third metatarsal head, right foot, excision: Chronic reparative and reactive change. No evidence of acute osteomyelitis. Fragments of soft tissue with no significant pathologic change. AM:huma 08/23/18 MICROSCOPIC DESCRIPTION Slides are reviewed. GROSS DESCRIPTION A - Received in fixative is one container labeled with the patient's name and designated clearance fragment third metatarsal right foot. The specimen consists of one irregular fragment of light suárez soft tissue that measures 1 x 0.6 x 0.2 cm. The entire specimen is submitted in one cassette after decalcification. B - Received in fixative is one container labeled with the patient's name and designated third metatarsal head right foot. The specimen consists of two pieces of bone measuring 2 x 1 x 1 cm and 1 x 0.5 x 0.5 cm. The entire specimen is submitted in one cassette after decalcification. / DONTA:huma 08/17/18 TC:5 CPT: 10061 x2, 63323 x2
--- NOTE | 2018-08-15 14:38 | PCM.DC.POD ---
Discharge Diet: Carb Control Diet Discharge Activity: May not drive while taking narcotic pain medications., May Not Shower, Use Walker, Use Crutches Weight Bearing Status: No weight bearing Keep extremity elevated above heart level: Left Leg, Right Leg Call your doctor if your incision/area has: Continuous Slow Oozing, Sudden Increased Bleeding, Increased Pain/ Swelling, Increased Redness, Foul Smelling Discharge, Swelling at the incision site Call your doctor if you observe: Fever of 101 or Higher, Calf discomfort, Uncontrolled pain Cleanse incision/area with: Keep Dressing Clean & Dry Additional Instructions: Take Augmentin antibiotic as prescribed. Take norco pain medication safely as prescribed if needed for pain. Allergies/Adverse Reactions: Allergies clindamycin Allergy (Verified 08/15/18 12:04) Hives vancomycin Allergy (Verified 08/15/18 12:04) Hives/makes my heart race Medications to take at Discharge Cholecalciferol (Vitamin D3) [Vitamin D3] 2,000 unit PO DAILY 03/10/18 insulin glargine (U-100) 100 unit/mL (3 mL) subcutaneous pen 68 unit SUBCUT QHS #15 ml 08/02/18 insulin lispro (U- 100) 100 unit/mL subcutaneous pen 14 unit SC TID #15 ml 08/02/18 Primary Care Physician: Raman Shepard MD [Primary Care Provider] - Test Results: Test results from this visit will be discussed in further detail at your follow-up appointment, if applicable. Please Follow Up With: Addie Simpson DPM When: [facility] Call [phone] sooner if questions. Proposed Discharge Date: 08/15/18
--- NOTE | 2018-08-15 14:42 | DCINST_ITS ---
Discharge Diet: Carb Control Diet Discharge Activity: May not drive while taking narcotic pain medications., May Not Shower, Use Walker, Use Crutches Weight Bearing Status: No weight bearing Keep extremity elevated above heart level: Left Leg, Right Leg Call your doctor if your incision/area has: Continuous Slow Oozing, Sudden Increased Bleeding, Increased Pain/ Swelling, Increased Redness, Foul Smelling Discharge, Swelling at the incision site Call your doctor if you observe: Fever of 101 or Higher, Calf discomfort, Uncontrolled pain Cleanse incision/area with: Keep Dressing Clean & Dry Additional Instructions: Take Augmentin antibiotic as prescribed. Take norco pain medication safely as prescribed if needed for pain. Allergies/Adverse Reactions: Allergies clindamycin Allergy (Verified 08/15/18 12:04) Hives vancomycin Allergy (Verified 08/15/18 12:04) Hives/makes my heart race Medications to take at Discharge Cholecalciferol (Vitamin D3) [Vitamin D3] 2,000 unit PO DAILY 03/10/18 insulin glargine (U-100) 100 unit/mL (3 mL) subcutaneous pen 68 unit SUBCUT QHS #15 ml 08/02/18 insulin lispro (U- 100) 100 unit/mL subcutaneous pen 14 unit SC TID #15 ml 08/02/18 Primary Care Physician: Raman Shepard MD [Primary Care Provider] - Test Results: Test results from this visit will be discussed in further detail at your follow- up appointment, if applicable. Please Follow Up With: Addie Simpson DPM When: [facility]. Call [phone] sooner if questions. Proposed Discharge Date: 08/15/18
[2018-08-15 14:45] VITALS: BP 129/76; BP 149/86; PULSE 110; RESP 15; TEMP 37; O2SAT 91
--- NOTE | 2018-08-15 14:53 | OP.PCM_ITS ---
Problem List (1) Deformity of metatarsal Status: Chronic Qualifiers: Laterality: right Qualified Code(s): M21.961 - Unspecified acquired deformity of right lower leg (2) Abscess of right foot Status: Chronic (3) Osteomyelitis Status: Chronic Qualifiers: Osteomyelitis type: subacute Osteomyelitis location: foot Laterality: right Qualified Code(s): M86.271 - Subacute osteomyelitis, right ankle and foot (4) Chronic ulcer of left foot with fat layer exposed Status: Chronic (5) Type 2 diabetes mellitus with diabetic polyneuropathy Status: Chronic Report of Operation Date of Procedure: 08/15/18 Pre-Operative Diagnosis: Right foot osteomyelitis of third metatarsal head. Right foot chronic plantar ulcer with fat layer exposed. Left foot chronic plantar ulcer with fat layer exposed Post-Operative Diagnosis: Right foot osteomyelitis of third metatarsal head. Right foot chronic plantar ulcer with fat layer exposed. Left foot chronic plantar ulcer with fat layer exposed Surgery/Procedure Performed:: Resection of right third metatarsal head. Subcutaneous excisional debridement of right + left plantar foot ulcer sites x 3. Application of advanced wound care products to bilateral foot; epi cord and amnio fill Description of Surgical Findings:: no mickey purulence or necrosis hemostasis controlled materials: one 3 x 5 cm epicord (applied bilateral), 1000 mg amniofill (applied bilateral) The patient tolerated the procedure and anesthesia well. She was transferred to the PACU with vital signs stable and vascular status intact to bilateral lower extremities. She will be discharged home upon continued stability. All postoperative orders were entered electronically. 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 Surgeon: Addie Simpson DPM Type of Anesthesia:: General, Local - Preoperative: 20 cc 1:1 mixture of 1% lidocaine plain and 0.5% marcaine plain administered in 3rd ray block fashion proximal to inflammatory site, local infiltration to all three plantar ulcer sites in a subdermal manner Specimen's removed: Right foot third metatarsal sent to pathology and microbiology (aerobic, anaerobic, acid-fast, fungal). Right foot third metatarsal clearance fragment sent to pathology microbiology (aerobic, anaerobic, acid-fast, fungal) Estimated Blood Loss (mL): < 50 mL Description of Procedure: Indications: This 28-year-old female with significant past medical history of uncontrolled diabetes with neuropathy, history of anemia, history of multiple sepsis episodes with chronic foot ulcers and bone infections presents to the operating room today for multiple procedures. She has chronic ulcers of both feet and suspected osteomyelitis of the third metatarsal head of the right foot. She is been undergoing a comprehensive wound healing program including offloading, nutritional supplementation, weekly debridements, advance wound care product application, and infection control. She is also being evaluated concurrently at this time for hyperbaric oxygen therapy sessions. She has been treated medically and surgically for foot infections. The preoperative indications, planned procedure, possible benefits, risks, complications, and anticipated healing time and management were discussed in detail with patient. She understands and elects to proceed with surgery at this time. She understands risks and complications include but are not limited to the following: Infection, swelling, scarring, non-or delayed healing, need for further surgery, loss of limb, function, life, chronic pain syndrome chronic floppy or deformed toes, allergic reaction, blood clot. The surgical consent was signed and I answered all of her questions. Her preoperative history and physical exam was reviewed it is noted this is a same day surgery procedure. Her preoperative diagnostic data was reviewed in detail. The preoperative x-rays did not demonstrate osseous destruction however her metatarsal deformity prominence and hammertoe deformities were appreciated. Preoperative MRI was reviewed with increased intensity on the T2 images to the third metatarsal head and distal shaft corresponding with some decreased intensity on the T1 images. This suggests potential osteomyelitis. There is also fluid collection to the dorsal third interspace that does seem to communicate with the plantar foot ulcer. Clinically she has a chronic granular base ulcer to plantar sub-third metatarsal head on the right foot and plantar medial left foot with hyperkeratotic borders. Her vascular status remains intact. There is a plantar right hallux ulcer that is very superficial with granular base. There is no dorsal foot ulcers noted however there is an indurated area to the dorsal right third interspace with diffuse erythema and edema with noticing streaking noted. It is also noted her hemoglobin A1c level 7.8%. Procedure in detail: The patient was transported to the operating room via cart and placed on the operating table in supine position. A right ankle tourniquet was placed in a well-padded manner. Preoperative antibiotics were held until after the clearance fragment was obtained; 2 g of ceftezolin. LMA was initiated by the anesthesia team. Local anesthetic was administered by the podiatry team as noted. Bilateral lower extremity's were prepped and draped in the usual aseptic manner. Surgery in the following: Attention was first directed to the right lower extremity which an Esmarch bandage was used to exsanguinate the limb and the tourniquet was inflated at this time. A curvilinear incision was made over the indurated area to the third interspace extending distally to the dorsal medial aspect of the third toe through the skin. Blunt dissection was performed down to the capsular layer taking care to identify, protect, and retract all neurovascular structures at this point and throughout the remainder of surgery. A Sturgis elevator was extended into the plantar ulcer site is noted this communicate with the third metatarsal phalangeal joint as well as the dorsal foot indurated area. It is noted no purulence, necrosis, or odor was noted. A non-skin blade was used to incise the third metatarsal phalangeal joint capsule and is noted at the proximal phalanx base was white and firm to touch with no visible signs of infection. The third metatarsal head was also firm to touch with questionable discoloration. A 15 blade was used to carefully free the third metatarsal head from the adjacent collateral ligaments and a sagittal saw was used to resect the prominent metatarsal head and suspected osteomyelitis region. This was removed in total and sent to both pathology and microbiology. Irrigation was performed and new gloves and instrumentation and towel drapes were applied around the site. The sagittal saw was cleansed and utilized to obtain a clearance fragment. This was additionally sent to pathology microbiology. The wound was again irrigated with saline and the tourniquet was deflated at this time. Pressure and mild electrocauterization was used to maintain hemostasis. No pulsatile bleeding was noted. Attention was next directed to the plantar right foot sub-third metatarsal head resection site and this ulcer did measure 2.3 x 1.9 x 2.1 cm prior to debridement. Subcutaneous excisional debridement was performed with a 15 blade scalpel and pressure was applied to maintain hemostasis. The post debridement measures 2.7 x 2.2 x 2.1 cm. The plantar right hallux ulcer site was measured pre-debridement as 0.4 x 0.3 x 0.1 cm. The post debridement measurement was 0.7 x 0.5 x 0.1 cm. The left foot plantar medial ulcer site was next debrided and subcutaneous excisional manner and pressure was applied to maintain hemostasis. The pre debridement measurement at this locatoin was 5.2 x 2.8 x 0.2 cm in the post debridement measurement was 5.6 x 3.0 x 0.2 cm. No tendon or bone was exposed at this site. Again, saline irrigation was performed and advanced wound care products were applied next. Amniofill was applied to the dorsal surgical site incision prior to retention closure with simple suture technique and 2-0 nylon. The remaining amnio fill was next applied to all three plantar ulcer sites and was gently moistened with saline to allow improved incorporation. Epi cord was next fashioned over the sub-third metatarsal head resection plantar site and plantar medial left foot site. This was secured with nylon suture. Additional wound veil was applied to all the plantar ulcer sites was secured with Steri-Strips and 2-0 nylon. It is noted that brisk capillary refill time was noted to all digits of bilateral feet and no pulsatile bleeding was noted at this time. A postoperative dressing consisting of Adaptic, gauze, abdominal pad, Kerlix, and Derrick wrap was applied. After procedure: The patient tolerated the procedure and anesthesia well. She was transported to PACU with vital signs stable and vascular status intact to bilateral lower extremities. She was advised to remain nonweightbearing to bilateral lower extremities. She does have a wedge forefoot offloading shoes crutches and a wheelchair to help assist her in this recommendation. To continue control blood sugar levels and take nutritional supplementation optimize healing. To keep the dressings clean, dry, and intact until follow-up with the [facility] next Tuesday. She was given pain medication, [place], and advised on safe and proper use only if needed for pain. Prescription for Augmentin was also provided and she is advised on proper use. Her micro and pathology results from surgery are pending. Postoperative x-rays demonstrate adequate resection of the third metatarsal head and no acute injuries. Postoperative orders were entered electronically. She will be discharged home today upon continued stability. Addie Simpson DPM, [facility] [phone] - Complications none - Admit VTE Documentation VTE Present on Admission: No VTE Pharm Prophylaxis ordered?: No Reason prophylaxis not ordered:: Treatment Not Indicated
[2018-08-15 15:00] VITALS: BP 122/77; BP 129/76; PULSE 103; RESP 18; O2SAT 98
--- NOTE | 2018-08-15 15:10 | RAD_ITS ---
STUDY: X-RAY - RIGHT FOOT CLINICAL: Female, 28 years old. The third metatarsal head resection. TECHNIQUE: 3 view(s) of the foot. COMPARISON: CT dated 08/08/2018 FINDINGS: There are postsurgical changes from resection of the third metatarsal head. There is no evidence of fracture or dislocation. There are no definite radiographic findings of osteomyelitis. There are no radiodense foreign bodies. RAD/Foot min 3 Views IMPRESSION: Postsurgical changes from resection of the third metatarsal head. No definite radiographic findings of osteoarthritis. No fracture or dislocation. Electronically Signed: Eran Estevez, at 16:10 EST Tel , Service support ,
[2018-08-15 15:15] VITALS: BP 121/78; BP 129/76; PULSE 105; RESP 18; O2SAT 96
[2018-08-15 15:42] VITALS: BP 125/74; BP 129/76; PULSE 102; RESP 16; TEMP 36.9; O2SAT 97
[2018-08-15 15:45] LABS: Bedside Glucose 197 mg/dL (70-110)
[2018-08-15 16:00] VITALS: BP 129/76
== END 2018-08-15 16:22 | disposition home or self-care (01) ==
LOC: SDC 11:35 → AC 11:37
PROVIDERS: Anesthesiology; Family Provider Internal Medicine; PCP Internal Medicine; Referring Provider Podiatrist; Visit Provider Podiatrist
PROC: (CPT 11043; principal; 2018-08-15 13:15)
DX: E11.621 Type 2 diabetes mellitus with foot ulcer (principal); E11.42 Type 2 diabetes mellitus with diabetic polyneuropathy; L97.512 Non-pressure chronic ulcer of other part of right foot with fat layer exposed; M21.961 Unspecified acquired deformity of right lower leg; E11.65 Type 2 diabetes mellitus with hyperglycemia; Z79.4 Long term (current) use of insulin; R00.0 Tachycardia, unspecified
CPT/HCPCS: 11043; 15275; 28288; 36415; 73630; 76000; 81025; 82962; 85610; 85730; 87015; 87070; 87075; 87077; 87102; 87116; 87186; 87205; 87206; 88304; 88305; 88311; J7120; J2405

== ENCOUNTER 2018-09-14 12:00 | Outpatient (RCR) | payer OTHER, SELFPAY ==
[2018-08-18 01:00] VITALS: BMI 36.7
[2018-08-18 01:10] VITALS: BP 135/84; PULSE 99; RESP 16; TEMP 37
[2018-08-23 14:04] VITALS: RESP 16; TEMP 35.5; BMI 36.7
--- NOTE | 2018-08-23 16:21 | PCM.WC.PN ---
(1) Chronic ulcer of left foot with fat layer exposed Status: Chronic Current Visit: Yes Code(s): L97.522 - Non-pressure chronic ulcer of other part of left foot with fat layer exposed (2) Ulcer of right foot with fat layer exposed Status: Chronic Current Visit: Yes Code(s): L97.512 - Non-pressure chronic ulcer of other part of right foot with fat layer exposed (3) Hallux limitus of right foot Status: Chronic Current Visit: Yes Code(s): M20.5X1 - Other deformities of toe(s) (acquired), right foot (4) Osteomyelitis Status: Chronic Current Visit: Yes Qualifiers: Code(s): M86.9 - Osteomyelitis, unspecified (5) Venous insufficiency Status: Chronic Current Visit: Yes Code(s): I87.2 - Venous insufficiency (chronic) (peripheral) (6) Hammer toe of right foot Status: Chronic Current Visit: Yes Code(s): M20.41 - Other hammer toe(s) (acquired), right foot (7) Hammer toe of left foot Status: Chronic Current Visit: Yes Code(s): M20.42 - Other hammer toe(s) (acquired), left foot (8) Malnutrition Status: Acute Current Visit: Yes Code(s): E46 - Unspecified protein-calorie malnutrition Type of Wound Date of Service: 08/23/18 Chief Complaint: Bilateral foot ulcers History of Wound: This 28-year-old female with uncontrolled diabetes returns to clinic for follow-up of bilateral ulcers. She had surgical intervention on August 15, 2018 including right third metatarsal head resection with clearance fragment bone biopsy and debridement of bilateral plantar ulcers with application of advanced wound care products (amnio fill and epi cord). she denies subjective fever, chill, nausea, vomiting. She has been compliant with the dressing recommendations. She is taking Augmentin as prescribed since post surgery. She does wear her forefoot offloading wide shoes and walks on these which is not advised in particular when she is traveling to class. She is waiting to start hyperbaric oxygen therapy and plans to do this when she returns from out of town. She denies redness or calf pain. Progress of Wound: Stable bilateral plantar ulcers. Stable dorsal incision surgical site - Physical Exam Vital Signs Temp Pulse Resp BP 96 F L 99 16 135/84 H 08/23/18 14:04 08/18/18 01:10 08/23/18 14:04 08/18/18 01:10 General: Alert, Oriented x3, Cooperative Extremities: No cyanosis, Capillary Refill Less than 3 Seconds, No Calf Tenderness - Negative Chiquita Bilateral, Diminished Peripheral Pulses, Edema - Bilateral lower extremities mild Skin: Ulcer/ Wound - No purulence, erythema history, odor, or infection. The dorsal right foot incision site is well aligned and coapted with sutures intact and some mild serous drainage noted. The plantar right foot ulcer site is intact with underlying epi cord and amnio fill remains sutured in place with Adaptic. The left plantar ulcer is granular and has some peripheral epithelialization. There is evidence that the advance wound care product and sutured Adaptic I moved out of place due to walking and shearing forces. The plantar right hallux ulcer demonstrates epithelialization and has underlying amnio fill still incorporating and the site was left alone. The peripheral skin is hairless and atrophic. There is no induration or erythema or maceration. Wound Measurements and Assessment WC - Nurse 1 - General Ulcer Measurement Start: 08/23/18 14:04 Freq: Status: Active Protocol: Activity Type Activity Date Activity User E-Sign Co-Sign Detail Recorded Client Recorded Date Recorded By Document 08/23/18 14:04 [facility] [id number] 08/23/18 14:21 [facility] 08/23/18 14:04 Wound Center Nurse 1 [Ulcer Assessment] #4 RIGHT GREAT TOE MEDIAL -Combined with other wound No -Current Size (cm) - Length 0.1 -Current Size (cm) - Width 0.1 -Current Size (cm) - Depth 0.1 -Total Square Cm 0.01 #3 RIGHT FOOT PLANTAR -Combined with other wound No -Current Size (cm) - Length 0.1 -Current Size (cm) - Width 0.1 -Current Size (cm) - Depth 0.1 -Total Square Cm 0.01 #1 LEFT PLANTAR -Combined with other wound No -Current Size (cm) - Length 0.1 -Current Size (cm) - Width 0.1 -Current Size (cm) - Depth 0.1 -Total Square Cm 0.01 [Edema Assessment] -Lower Limb Edema Present Yes -Right Calf (cm) 41.5 -Right Ankle (cm) 24.6 -Left Calf (cm) 42.2 -Left Ankle (cm) 24.6 BREANA - Nurse 2 - General Ulcer CM Notes Start: 08/23/18 14:04 Freq: Status: Active Protocol: Activity Type Activity Date Activity User E-Sign Co-Sign Detail Recorded Client Recorded Date Recorded By Document 08/23/18 14:46 [id number] 08/23/18 14:49 08/23/18 14:46 Wound Center Nurse 2 [Procedure/Treatment] #4 RIGHT GREAT TOE MEDIAL -Time 14:46 -Correct Patient No -Correct Side, Site, Position No -Correct Procedure No -Procedure Performed No -Offloading Yes -Type of Offloading Surgical Shoe #3 RIGHT FOOT PLANTAR -Time 14:46 -Correct Patient No -Correct Side, Site, Position No -Correct Procedure No -Procedure Performed No -Offloading Yes -Type of Offloading Surgical Shoe #1 LEFT PLANTAR -Time 14:46 -Correct Patient No -Correct Side, Site, Position No -Correct Procedure No -Procedure Performed No -Offloading Yes -Type of Offloading Surgical Shoe [See Physician Procedure note for Specifics] Pain Scale: 0-10 Numeric [Pain] -Is Patient Pain Free? Yes Musculoskeletal: No Tenderness to Palpation of Joints or Extremities, Muscle Wasting, - - Dorsal contraction of lesser toes with prominent metatarsal heads bilateral Neurological: - - Lack of epicritic sensation light touch bilateral lower extremities Psych/Mental Status: Normal Affect, Appropriate Debridement Note Post-Debridement Measurements/Treatment WC - Nurse 2 - General Ulcer CM Notes Start: 08/23/18 14:04 Freq: Status: Active Protocol: Activity Type Activity Date Activity User E-Sign Co-Sign Detail Recorded Client Recorded Date Recorded By Document 08/23/18 14:46 [id number] 08/23/18 14:49 08/23/18 14:46 Wound Center Nurse 2 #4 RIGHT GREAT TOE MEDIAL -Time 14:46 -Correct Patient No -Correct Side, Site, Position No -Correct Procedure No -Procedure Performed No -Offloading Yes -Type of Offloading Surgical Shoe #3 RIGHT FOOT PLANTAR -Time 14:46 -Correct Patient No -Correct Side, Site, Position No -Correct Procedure No -Procedure Performed No -Offloading Yes -Type of Offloading Surgical Shoe #1 LEFT PLANTAR -Time 14:46 -Correct Patient No -Correct Side, Site, Position No -Correct Procedure No -Procedure Performed No -Offloading Yes -Type of Offloading Surgical Shoe Pain Scale: 0-10 Numeric Is Patient Pain Free? Yes No debridement was completed today - Advance wound care product was applied last week in the operating room and these were left intact today. Additional debridement will be considered next week to all sites. Updated wound veil and Steri-Strips were applied to protect the advance wound care product sites. Assessment/Plan Active Problems (Last Reviewed 08/02/18 @ 14:19 by Jocelyn Barlow) Hallux limitus of right foot (Chronic) Osteomyelitis (Chronic) Venous insufficiency (Chronic) Hammer toe of right foot (Chronic) Hammer toe of left foot (Chronic) Malnutrition (Acute) Ulcer of right foot with fat layer exposed (Chronic) Chronic ulcer of left foot with fat layer exposed (Chronic) Assessment: see above diagnoses Plan: I reviewed and discussed her care plan today. Debridement was not performed today. Any disrupted wound veil's were reapplied and secured with Steri-Strips. Secondary dressings were applied to bilateral feet and she was advised to keep this clean, dry, and intact until follow-up visit next week. A refill for Augmentin was provided today. Her intraoperative microbiology and pathology results were reviewed. It is noted that no acute osteomyelitis was confirmed with the clearance fragment pathology specimen. There is additionally no bacterial growth noted in the clearance fragment. The bacterial growth identified in the resected third metatarsal head is adequately covered by Augmentin. To continue to follow-up for medical management with PCP and endocrinology. She recently saw . To continue with starting hyperbaric oxygen therapy as soon as possible to optimize healing. The patient was educated on the importance of diet on wound healing and instructed to increase protein and vitamin C intake. To use assistive devices. To continue follow-up with nutrition services. I recommend more aggressive offloading. She is having difficulty using assistive devices and wheelchair which is compromising her care plan. To continue with bilateral forefoot offloading wedge surgical shoes with use of assistive device and continued reduced walking activity. . Her most recent noninvasive vascular studies were reviewed from April 2018 with bilateral ankle-brachial indices 1.23. Her results demonstrated normal arterial perfusion. Her venous duplex Doppler studies with reflux evaluation were also reviewed and the results were discussed. 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 I do recommend future vascular surgeon referral to see if intervention may be completed. I recommend focusing on her surgery and initiation of hyperbaric oxygen therapy as a priority at this time. She will consider venous intervention. To follow-up with the wound healing center in 1 week. Answered her questions.
[2018-08-30 10:57] VITALS: BP 114/86; PULSE 105; RESP 22; TEMP 37.1; BMI 36.7
--- NOTE | 2018-08-30 11:52 | PCM.WC.PN ---
(1) Chronic ulcer of left foot with fat layer exposed Status: Chronic Current Visit: Yes Code(s): L97.522 - Non-pressure chronic ulcer of other part of left foot with fat layer exposed (2) Ulcer of right foot with fat layer exposed Status: Chronic Current Visit: Yes Code(s): L97.512 - Non-pressure chronic ulcer of other part of right foot with fat layer exposed (3) Hallux limitus of right foot Status: Chronic Current Visit: Yes Code(s): M20.5X1 - Other deformities of toe(s) (acquired), right foot (4) Osteomyelitis Status: Chronic Current Visit: Yes Qualifiers: Code(s): M86.9 - Osteomyelitis, unspecified (5) Venous insufficiency Status: Chronic Current Visit: Yes Code(s): I87.2 - Venous insufficiency (chronic) (peripheral) (6) Hammer toe of right foot Status: Chronic Current Visit: Yes Code(s): M20.41 - Other hammer toe(s) (acquired), right foot (7) Hammer toe of left foot Status: Chronic Current Visit: Yes Code(s): M20.42 - Other hammer toe(s) (acquired), left foot (8) Malnutrition Status: Acute Current Visit: Yes Code(s): E46 - Unspecified protein-calorie malnutrition Type of Wound Chief Complaint: Bilateral foot ulcers History of Wound: This 28-year-old female with uncontrolled diabetes returns to clinic for follow-up of bilateral ulcers. She had surgical intervention on August 15, 2018 including right third metatarsal head resection with clearance fragment bone biopsy and debridement of bilateral plantar ulcers with application of advanced wound care products (amnio fill and epi cord). she denies subjective fever, chill, nausea, vomiting. She has been compliant with the dressing recommendations. she is no longer taking antibiotics. She does wear her forefoot offloading wide shoes and walks on these which is not advised in particular when she is traveling to class. She is waiting to start hyperbaric oxygen therapy and plans to do this when she returns from out of town. She denies redness or calf pain. Progress of Wound: Stable bilateral plantar ulcers. Stable dorsal incision surgical site - Physical Exam Vital Signs Temp Pulse Resp BP 98.7 F 105 H 22 H 114/86 H 08/30/18 10:57 08/30/18 10:57 08/30/18 10:57 08/30/18 10:57 Wound Measurements and Assessment WC - Nurse 1 - General Ulcer Measurement Start: 08/23/18 14:04 Freq: Status: Active Protocol: Activity Type Activity Date Activity User E-Sign Co-Sign Detail Recorded Client Recorded Date Recorded By Document 08/30/18 10:57 DL [id number] 08/30/18 11:08 DL 08/30/18 10:57 Wound Center Nurse 1 [Ulcer Assessment] #4 RIGHT GREAT TOE MEDIAL -Current Size (cm) - Length 0.1 -Current Size (cm) - Width 0.1 -Current Size (cm) - Depth 0.1 -Total Square Cm 0.01 -Photo Taken No -Exudate Amt None Present -Wound Margin Thickened -Granulation Amt Large (67-100%) -Granulation Quality Pale -Necrosis Amt None Present (0 %) -Structure Exposed N/A -Texture (Cheri-wound Skin Appearance) Callus Scarring -Moisture (Cheri-wound Skin Appearance Dry/Scaly ) -Color (Cheri-wound Skin Appearance) No Abnormality -Temperature (Cheri-wound Skin No Abnormality Appearance) (Pt Warm) -Tenderness on Palpation (Cheri-wound No Skin Appearance) -Ulcer Cleansing Wound Cleanser -Foul Odor after Cleansing No -Anesthetic Used 5% Lidocaine Gel #3 RIGHT FOOT PLANTAR -Current Size (cm) - Length 1.3 -Current Size (cm) - Width 0.9 -Current Size (cm) - Depth 0.3 -Total Square Cm 1.17 -Photo Taken No -Exudate Amt Small -Exudate Type Serosanguineous -Wound Margin Thickened -Granulation Amt Large (67-100%) -Granulation Quality Pale -Necrosis Amt Small (1-33%) -Necrotic Tissue Type Adherent Slough -Structure Exposed N/A -Texture (Cheri-wound Skin Appearance) Callus -Moisture (Cheri-wound Skin Appearance Dry/Scaly ) -Color (Cheri-wound Skin Appearance) No Abnormality -Temperature (Cheri-wound Skin No Abnormality Appearance) (Pt Warm) -Tenderness on Palpation (Cheri-wound No Skin Appearance) -Ulcer Cleansing Wound Cleanser -Foul Odor after Cleansing No -Anesthetic Used 5% Lidocaine Gel #1 LEFT PLANTAR -Current Size (cm) - Length 5 -Current Size (cm) - Width 2.5 -Current Size (cm) - Depth 0.4 -Total Square Cm 12.5 -Photo Taken No -Exudate Amt Medium -Exudate Type Serosanguineous -Wound Margin Thickened -Granulation Amt Large (67-100%) -Granulation Quality [place] Red -Necrosis Amt Small (1-33%) -Necrotic Tissue Type Adherent Slough -Structure Exposed N/A -Texture (Cheri-wound Skin Appearance) Callus Scarring -Moisture (Cheri-wound Skin Appearance Dry/Scaly ) -Color (Cheri-wound Skin Appearance) No Abnormality -Temperature (Cheri-wound Skin No Abnormality Appearance) (Pt Warm) -Tenderness on Palpation (Cheri-wound No Skin Appearance) -Ulcer Cleansing Wound Cleanser -Foul Odor after Cleansing No -Anesthetic Used 5% Lidocaine Gel [Edema Assessment] -Right Calf (cm) 40 -Right Ankle (cm) 23.6 -Left Calf (cm) 40 -Left Ankle (cm) 24 WC - Nurse 2 - General Ulcer CM Notes Start: 08/23/18 14:04 Freq: Status: Active Protocol: Activity Type Activity Date Activity User E-Sign Co-Sign Detail Recorded Client Recorded Date Recorded By Document 08/30/18 11:26 DL [id number] 08/30/18 11:33 DL 08/30/18 11:26 Wound Center Nurse 2 [Procedure/Treatment] #3 RIGHT FOOT PLANTAR -Time 11:32 -Correct Patient Yes -Correct Side, Site, Position Yes -Correct Procedure Yes -Procedure Performed Yes -Type of Procedure Debridement -Clinical Debridement Subcutaneous -Post Debridement Size (cm) - Length 1.3 -Post Debridement Size (cm) - Width 0.9 -Post Debridement Size (cm) - Depth 0.3 -Total Square Cm 1.17 -Wound/Ulcer Outcome Not Healed -Ulcer Cleansing Rinsed/ Irrigated with Saline -Foul Odor after Cleansing No -Bioengineered Tissue No -Bleeding Controlled with Pressure -Offloading Yes -Type of Offloading Surgical Shoe -Treatment Response Procedure Not Tolerated Well #1 LEFT PLANTAR -Time 11:33 -Correct Patient Yes -Correct Side, Site, Position Yes -Correct Procedure Yes -Procedure Performed Yes -Type of Procedure Debridement -Clinical Debridement Subcutaneous -Post Debridement Size (cm) - Length 5 -Post Debridement Size (cm) - Width 2.5 -Post Debridement Size (cm) - Depth 0.4 -Total Square Cm 12.5 -Wound/Ulcer Outcome Not Healed -Ulcer Cleansing Rinsed/ Irrigated with Saline -Foul Odor after Cleansing No -Bioengineered Tissue No -Bleeding Controlled with Pressure -Offloading Yes -Type of Offloading Surgical Shoe -Treatment Response Procedure Tolerated Well [See Physician Procedure note for Specifics] Pain Scale: 0-10 Numeric [Pain] -Is Patient Pain Free? Yes Debridement Note Post-Debridement Measurements/Treatment WC - Nurse 2 - General Ulcer CM Notes Start: 08/23/18 14:04 Freq: Status: Active Protocol: Activity Type Activity Date Activity User E-Sign Co-Sign Detail Recorded Client Recorded Date Recorded By Document 08/23/18 14:46 JF [id number] 08/23/18 14:49 JF Document 08/30/18 11:26 DL [id number] 08/30/18 11:33 DL 08/23/18 08/30/18 14:46 11:26 Wound Center Nurse 2 #4 RIGHT GREAT TOE MEDIAL -Time 14:46 -Correct Patient No -Correct Side, Site, Position No -Correct Procedure No -Procedure Performed No -Offloading Yes -Type of Offloading Surgical Shoe #3 RIGHT FOOT PLANTAR -Time 14:46 11:32 -Correct Patient No Yes -Correct Side, Site, Position No Yes -Correct Procedure No Yes -Procedure Performed No Yes -Type of Procedure Debridement -Clinical Debridement Subcutaneous -Post Debridement Size (cm) - Length 1.3 -Post Debridement Size (cm) - Width 0.9 -Post Debridement Size (cm) - Depth 0.3 -Total Square Cm 1.17 -Wound/Ulcer Outcome Not Healed -Ulcer Cleansing Rinsed/ Irrigated with Saline -Foul Odor after Cleansing No -Bioengineered Tissue No -Bleeding Controlled with Pressure -Offloading Yes Yes -Type of Offloading Surgical Shoe Surgical Shoe -Treatment Response Procedure Not Tolerated Well #1 LEFT PLANTAR -Time 14:46 11:33 -Correct Patient No Yes -Correct Side, Site, Position No Yes -Correct Procedure No Yes -Procedure Performed No Yes -Type of Procedure Debridement -Clinical Debridement Subcutaneous -Post Debridement Size (cm) - Length 5 -Post Debridement Size (cm) - Width 2.5 -Post Debridement Size (cm) - Depth 0.4 -Total Square Cm 12.5 -Wound/Ulcer Outcome Not Healed -Ulcer Cleansing Rinsed/ Irrigated with Saline -Foul Odor after Cleansing No -Bioengineered Tissue No -Bleeding Controlled with Pressure -Offloading Yes Yes -Type of Offloading Surgical Shoe Surgical Shoe -Treatment Response Procedure Tolerated Well Pain Scale: 0-10 Numeric Is Patient Pain Free? Yes Yes Wound debrided: plantar foot Laterality: Left Wound Grade/Stage: grade 3 Type of Debridement: Excisional debridement Anesthesia Used: 5% Lidocaine Gel Depth: in the subcutaneous layer Percentage of wound debrided: 100 Instrument Used: #15 blade Tissue Removed: fibrous, devitalized subcutaneous, biofilm, slough Severity: Fat Layer Exposed Amount of bleeding with debridement: Mild Bleeding Controlled with: Pressure Patient tolerated procedure well - Additional Wound Wound debrided: plantar foot Laterality: Right Wound Grade/Stage: grade 3 Type of Debridement: Excisional debridement Anesthesia Used: 5% Lidocaine Gel Depth: in the subcutaneous layer Percentage of wound debrided: 100 Instrument Used: #15 blade Tissue Removed: fibrous, devitalized subcutaneous, biofilm, slough Severity: Fat Layer Exposed Amount of bleeding with debridement: Mild Bleeding Controlled with: Pressure Patient tolerated procedure: Patient tolerated procedure well - Additional Wound Wound debrided: dorsal foot Laterality: Right Wound Grade/Stage: surgical site Type of Debridement: Excisional debridement Anesthesia Used: 5% Lidocaine Gel Depth: in the subcutaneous layer Percentage of wound debrided: 100 Instrument Used: #15 blade Tissue Removed: fibrous, devitalized subcutaneous, biofilm, slough Severity: Fat Layer Exposed Amount of bleeding with debridement: Mild Bleeding Controlled with: Pressure Patient tolerated procedure: Patient tolerated procedure well Assessment/Plan Active Problems (Last Reviewed 08/02/18 @ 14:19 by Jocelyn Barlow) Hallux limitus of right foot (Chronic) Osteomyelitis (Chronic) Venous insufficiency (Chronic) Hammer toe of right foot (Chronic) Hammer toe of left foot (Chronic) Malnutrition (Acute) Ulcer of right foot with fat layer exposed (Chronic) Chronic ulcer of left foot with fat layer exposed (Chronic) Assessment: see above diagnoses Plan: I reviewed and discussed her care plan today. Debridement was performed today as noted in the clinical panel. To change daily at home with the recall. No additional antibiotics are recommended at this time. Her intraoperative microbiology and pathology results were reviewed. It is noted that no acute osteomyelitis was confirmed with the clearance fragment pathology specimen. There is additionally no bacterial growth noted in the clearance fragment. The bacterial growth identified in the resected third metatarsal head was adequately covered by Augmentin. To continue to follow-up for medical management with PCP and endocrinology. She is scheduled to start hyperbaric oxygen therapy sessions this upcoming Tuesday when she returns from her out of town trip. The patient was educated on the importance of diet on wound healing and instructed to increase protein and vitamin C intake. To use assistive devices. To continue follow-up with nutrition services. I recommend more aggressive offloading. She is having difficulty using assistive devices and wheelchair which is compromising her care plan. To continue with bilateral forefoot offloading wedge surgical shoes with use of assistive device and continued reduced walking activity. . Her most recent noninvasive vascular studies were reviewed from April 2018 with bilateral ankle-brachial indices 1.23. Her results demonstrated normal arterial perfusion. Her venous duplex Doppler studies with reflux evaluation were also reviewed and the results were discussed. 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 I do recommend future vascular surgeon referral to see if intervention may be completed. I recommend focusing on her surgery and initiation of hyperbaric oxygen therapy as a priority at this time. She will consider venous intervention. To follow-up with the wound healing center in 1 week. Answered her questions.
[2018-09-04 14:36] LABS: Bedside Glucose 282 mg/dL (70-110)
--- NOTE | 2018-09-04 15:53 | WC ---
Patient arrived for initial HBO treatment at 1405. Consent forms, HBO patient questionnaire, and HBO orientation completed. Patient last ate at 12:30pm and also administered insulin per self. Stated she administered Humalog 14 units plus 16 units sliding scale SQ for a total of 30 units after eating. Current vital signs;blood sugar 282, temp. 97.8, BP 149/81, pulse 106, respirations 18. Ears examined, unable to visualize left ear drum, ears pink and irritated bilat. Patient unable to dive today due to elevated blood sugar and unable to visualize left eardrum. Patient educated on blood sugar control and healthy diet. Advised to remove nail dominican adhesive strips and remove contact lenses before HBO treatments. Iram Dominguez CNP notified of elevated blood sugar and ear issues. Received referral to ENT. Patient informed HBO on hold until after ENT appointment. Voiced understanding.
[2018-09-06 15:50] VITALS: BP 145/92; PULSE 103; RESP 18; TEMP 36.6; BMI 36.7
--- NOTE | 2018-09-06 16:41 | PCM.WC.PN ---
(1) Chronic ulcer of left foot with fat layer exposed Status: Chronic Code(s): L97.522 - Non-pressure chronic ulcer of other part of left foot with fat layer exposed (2) Ulcer of right foot with fat layer exposed Status: Chronic Code(s): L97.512 - Non-pressure chronic ulcer of other part of right foot with fat layer exposed (3) Osteomyelitis Status: Resolved Qualifiers: Code(s): M86.9 - Osteomyelitis, unspecified (4) Venous insufficiency Status: Chronic Code(s): I87.2 - Venous insufficiency (chronic) (peripheral) (5) Hammer toe of right foot Status: Chronic Code(s): M20.41 - Other hammer toe(s) (acquired), right foot (6) Hammer toe of left foot Status: Chronic Code(s): M20.42 - Other hammer toe(s) (acquired), left foot (7) Malnutrition Status: Acute Code(s): E46 - Unspecified protein-calorie malnutrition Type of Wound Date of Service: 09/06/18 Chief Complaint: Bilateral foot ulcers History of Wound: This 28-year-old female with uncontrolled diabetes returns to clinic for follow-up of bilateral ulcers. She had surgical intervention on August 15, 2018 including right third metatarsal head resection with clearance fragment bone biopsy and debridement of bilateral plantar ulcers with application of advanced wound care products (amnio fill and epi cord). she denies subjective fever, chill, nausea, vomiting. She has been compliant with the dressing recommendations. she is no longer taking antibiotics. She does wear her forefoot offloading wide shoes and walks on these which is not advised in particular when she is traveling to class. She is going to start hyperbaric oxygen therapy and is going for an ear evaluation first. She denies redness or calf pain. Progress of Wound: Stable bilateral plantar ulcers. Stable dorsal incision surgical site - Physical Exam Vital Signs Temp Pulse Resp BP 98 F 103 H 18 145/92 H 09/06/18 15:50 09/06/18 15:50 09/06/18 15:50 09/06/18 15:50 General: Alert, Oriented x3, Cooperative HEENT: Atraumatic Extremities: No cyanosis, Capillary Refill Less than 3 Seconds, No Calf Tenderness - Negative Chiquita and Rockwell sign bilateral, Diminished Peripheral Pulses, Edema - Mild bilateral lower extremities Skin: Ulcer/ Wound - No purulence, erythema, streaking, odor, or infection. No eschar deep tissue probing noted today. The dorsal right foot sutures are no longer keeping the skin opposed and upon removal there is a granular base. Wound Measurements and Assessment WC - Nurse 1 - General Ulcer Measurement Start: 08/23/18 14:04 Freq: Status: Active Protocol: Activity Type Activity Date Activity User E-Sign Co-Sign Detail Recorded Client Recorded Date Recorded By Document 09/06/18 15:50 RB [id number] 09/06/18 16:03 RB 09/06/18 15:50 Wound Center Nurse 1 [Ulcer Assessment] #3 RIGHT FOOT PLANTAR -Combined with other wound No -Current Size (cm) - Length 0.7 -Current Size (cm) - Width 0.7 -Current Size (cm) - Depth 0.2 -Total Square Cm 0.49 -Photo Taken No -Epithelialization None Present -Tunneling No -Undermining/Tunneling No -Undermining/Tunneling Starts #2 (O' 12 clock) -Undermining/Tunneling Ends #2 (O' 12 clock) -Maximum Distance #2 (cm) 0.2 -Circular Undermining Yes -Wound Margin Distinct, Outline Attached -Granulation Amt Large (67-100%) -Granulation Quality [place] -Slough/Fibrin No -Necrosis Amt None Present (0 %) -Texture (Cheri-wound Skin Appearance) Callus Scarring -Moisture (Cheri-wound Skin Appearance Assessed ) Dry/Scaly -Color (Cheri-wound Skin Appearance) Assessed -Temperature (Cheri-wound Skin No Abnormality Appearance) (Pt Warm) -Tenderness on Palpation (Cheri-wound No Skin Appearance) -Ulcer Cleansing Rinsed/ Irrigated with Saline -Foul Odor after Cleansing No -Anesthetic Used 5% Lidocaine Gel #1 LEFT PLANTAR -Combined with other wound No -Current Size (cm) - Length 5 -Current Size (cm) - Width 2.7 -Current Size (cm) - Depth 0.2 -Total Square Cm 13.5 -Photo Taken No -Epithelialization None Present -Tunneling No -Undermining/Tunneling No -Circular Undermining No -Exudate Amt Medium -Exudate Type Serosanguineous -Wound Margin Flat & Intact -Granulation Amt Large (67-100%) -Granulation Quality Red -Slough/Fibrin No -Necrosis Amt None Present (0 %) -Texture (Cheri-wound Skin Appearance) Callus Scarring -Moisture (Cheri-wound Skin Appearance Dry/Scaly ) -Color (Cheri-wound Skin Appearance) Assessed -Temperature (Cheri-wound Skin No Abnormality Appearance) (Pt Warm) -Tenderness on Palpation (Cheri-wound No Skin Appearance) -Ulcer Cleansing Wound Cleanser -Foul Odor after Cleansing No -Anesthetic Used 5% Lidocaine Gel [Edema Assessment] -Lower Limb Edema Present Yes -Right Calf (cm) 42 -Right Ankle (cm) 25.2 -Left Calf (cm) 43 -Left Ankle (cm) 25 WC - Nurse 2 - General Ulcer CM Notes Start: 08/23/18 14:04 Freq: Status: Active Protocol: Activity Type Activity Date Activity User E-Sign Co-Sign Detail Recorded Client Recorded Date Recorded By Document 09/06/18 16:26 AN [id number] 09/06/18 16:31 AN 09/06/18 16:26 Wound Center Nurse 2 [Procedure/Treatment] #3 RIGHT FOOT PLANTAR -Time 16:29 -Correct Patient Yes -Correct Side, Site, Position Yes -Correct Procedure Yes -Procedure Performed Yes -Type of Procedure Debridement -Clinical Debridement Subcutaneous -Post Debridement Size (cm) - Length 0.8 -Post Debridement Size (cm) - Width 0.8 -Post Debridement Size (cm) - Depth 0.2 -Total Square Cm 0.64 -Treatment Response Procedure Tolerated Well #1 LEFT PLANTAR -Time 16:29 -Correct Patient Yes -Correct Side, Site, Position Yes -Correct Procedure Yes -Procedure Performed Yes -Type of Procedure Debridement -Clinical Debridement Subcutaneous -Post Debridement Size (cm) - Length 5 -Post Debridement Size (cm) - Width 2.7 -Post Debridement Size (cm) - Depth 0.2 -Total Square Cm 13.5 -Treatment Response Procedure Tolerated Well [See Physician Procedure note for Specifics] Pain Scale: 0-10 Numeric [Pain] -Is Patient Pain Free? Yes Musculoskeletal: No Tenderness to Palpation of Joints or Extremities, Muscle Wasting, - - Decreased loaded first metatarsophalangeal joint range of motion bilateral. Dorsal contraction of lesser digits with prominent metatarsal heads bilateral. Neurological: - - Lack of epicritic sensation light touch bilateral lower extremities. Psych/Mental Status: Normal Affect, Appropriate Debridement Note Post-Debridement Measurements/Treatment WC - Nurse 2 - General Ulcer CM Notes Start: 08/23/18 14:04 Freq: Status: Active Protocol: Activity Type Activity Date Activity User E-Sign Co-Sign Detail Recorded Client Recorded Date Recorded By Document 08/23/18 14:46 JF [id number] 08/23/18 14:49 Document 08/30/18 11:26 DL [id number] 08/30/18 11:33 DL Document 09/06/18 16:26 AN [id number] 09/06/18 16:31 AN 08/23/18 08/30/18 09/06/18 14:46 11:26 16:26 Wound Center Nurse 2 #4 RIGHT GREAT TOE MEDIAL -Time 14:46 -Correct Patient No -Correct Side, Site, Position No -Correct Procedure No -Procedure Performed No -Offloading Yes -Type of Offloading Surgical Shoe #3 RIGHT FOOT PLANTAR -Time 14:46 11:32 16:29 -Correct Patient No Yes Yes -Correct Side, Site, Position No Yes Yes -Correct Procedure No Yes Yes -Procedure Performed No Yes Yes -Type of Procedure Debridement Debridement -Clinical Debridement Subcutaneous Subcutaneous -Post Debridement Size (cm) - Length 1.3 0.8 -Post Debridement Size (cm) - Width 0.9 0.8 -Post Debridement Size (cm) - Depth 0.3 0.2 -Total Square Cm 1.17 0.64 -Wound/Ulcer Outcome Not Healed -Ulcer Cleansing Rinsed/ Irrigated with Saline -Foul Odor after Cleansing No -Bioengineered Tissue No -Bleeding Controlled with Pressure -Offloading Yes Yes -Type of Offloading Surgical Shoe Surgical Shoe -Treatment Response Procedure Not Procedure Tolerated Well Tolerated Well #1 LEFT PLANTAR -Time 14:46 11:33 16:29 -Correct Patient No Yes Yes -Correct Side, Site, Position No Yes Yes -Correct Procedure No Yes Yes -Procedure Performed No Yes Yes -Type of Procedure Debridement Debridement -Clinical Debridement Subcutaneous Subcutaneous -Post Debridement Size (cm) - Length 5 5 -Post Debridement Size (cm) - Width 2.5 2.7 -Post Debridement Size (cm) - Depth 0.4 0.2 -Total Square Cm 12.5 13.5 -Wound/Ulcer Outcome Not Healed -Ulcer Cleansing Rinsed/ Irrigated with Saline -Foul Odor after Cleansing No -Bioengineered Tissue No -Bleeding Controlled with Pressure -Offloading Yes Yes -Type of Offloading Surgical Shoe Surgical Shoe -Treatment Response Procedure Procedure Tolerated Well Tolerated Well Pain Scale: 0-10 Numeric Is Patient Pain Free? Yes Yes Yes Wound debrided: sub metatarsal head Laterality: Right Wound Grade/Stage: grade 3 Type of Debridement: Excisional debridement Anesthesia Used: 5% Lidocaine Gel Depth: in the subcutaneous layer Percentage of wound debrided: 100 Instrument Used: #15 blade Tissue Removed: fibrous, devitalized subcutaneous, biofilm, slough Severity: Fat Layer Exposed Amount of bleeding with debridement: Mild Bleeding Controlled with: Pressure Patient tolerated procedure well - Additional Wound Wound debrided: plantar medial foot Laterality: Left Wound Grade/Stage: grade 3 Type of Debridement: Excisional debridement Anesthesia Used: 5% Lidocaine Gel Depth: in the subcutaneous layer Percentage of wound debrided: 100 Instrument Used: #15 blade Tissue Removed: fibrous, devitalized subcutaneous, biofilm, slough Severity: Fat Layer Exposed Amount of bleeding with debridement: Mild Bleeding Controlled with: Pressure Patient tolerated procedure: Patient tolerated procedure well - Additional Wound Wound debrided: dorsal third interspace Laterality: Right Wound Grade/Stage: grade 1 (post op location) Type of Debridement: Excisional debridement Anesthesia Used: 5% Lidocaine Gel Depth: in the subcutaneous layer Percentage of wound debrided: 100 Instrument Used: #15 blade Tissue Removed: fibrous, devitalized subcutaneous, biofilm, slough Severity: Fat Layer Exposed Amount of bleeding with debridement: Mild Bleeding Controlled with: Pressure Patient tolerated procedure: Patient tolerated procedure well Assessment/Plan Assessment: see above diagnoses Plan: I reviewed and discussed her care plan today. Debridement was performed today as noted in the clinical panel. All remaining retention sutures were removed. A dressing consisting of fibricol was applied. To change daily at home as advised. No additional antibiotics are recommended at this time. Her intraoperative microbiology and pathology results were reviewed. It is noted that no acute osteomyelitis was confirmed with the clearance fragment pathology specimen. There is additionally no bacterial growth noted in the clearance fragment. The bacterial growth identified in the resected third metatarsal head was adequately covered by Augmentin. To continue to follow-up for medical management with PCP and endocrinology. She is scheduled to start hyperbaric oxygen therapy sessions upon completion of her ear evaluation; she may have tubes placed. The patient was educated on the importance of diet on wound healing and instructed to increase protein and vitamin C intake. To use assistive devices. To continue follow-up with nutrition services. I recommend more aggressive offloading. She is having difficulty using assistive devices and wheelchair which is compromising her care plan. To continue with bilateral forefoot offloading wedge surgical shoes with use of assistive device and continued reduced walking activity. . Her most recent noninvasive vascular studies were reviewed from April 2018 with bilateral ankle-brachial indices 1.23. Her results demonstrated normal arterial perfusion. Her venous duplex Doppler studies with reflux evaluation were also reviewed and the results were discussed. 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 I do recommend future vascular surgeon referral to see if intervention may be completed. I recommend focusing on her surgery and initiation of hyperbaric oxygen therapy as a priority at this time. She will consider venous intervention. To follow-up with the wound healing center in 1 week. Answered her questions.
[2018-09-12 10:21] LABS: Bedside Glucose 200 mg/dL (70-110)
[2018-09-12 10:51] LABS: Bedside Glucose 192 mg/dL (70-110)
[2018-09-12 11:46] VITALS: BP 111/69; BP 133/84; PULSE 102; PULSE 93; RESP 16; RESP 18; TEMP 36.3; TEMP 37.1
--- NOTE | 2018-09-12 12:40 | PCM.HBO.PN ---
History of Present Illness Date of Service: 09/12/18 Presenting Chief Complaint: Bilateral foot ulcers DON COTTO is a 28 year old currently undergoing hyperbaric oxygen therapy for bilateral diabetic foot ulcer, osteomyelitis. Progress: Today is the first session of hyperbaric oxygen therapy. Tolerance of hyperbaric oxygen therapy: Hyperbaric oxygen therapy was administered as per the facility's protocol. The patient tolerated hyperbaric oxygen therapy well, without complaints or complications. Upon emergence from the hyperbaric chamber, the patient's vital signs remained stable. She was discharged in good condition. Past Medical History Chronic Problems (Last Reviewed 08/02/18 @ 14:19 by Jocelyn Barlow) Dehiscence of closure of subcutaneous tissue (Chronic) Hallux limitus of right foot (Chronic) Abscess of right foot (Chronic) Diabetes mellitus type 2, uncontrolled, with complications (Chronic) Venous insufficiency (Chronic) Hammer toe of right foot (Chronic) Hammer toe of left foot (Chronic) Pre-ulcerative corn or callous (Chronic) Deformity of metatarsal (Chronic) Diabetic foot ulcer (Chronic) Ulcer of right foot with fat layer exposed (Chronic) Chronic ulcer of left foot with fat layer exposed (Chronic) Endometriosis (Chronic) Diabetes (Chronic) 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) Ulcer of right foot with necrosis of muscle (Chronic) Obesity (BMI 30.0-34.9) (Chronic) Diabetes mellitus, type II (Chronic) Allergies/Adverse Reactions: Allergies clindamycin Allergy (Verified 08/15/18 12:04) Hives vancomycin Allergy (Verified 08/15/18 12:04) Hives/makes my heart race Home Medications: Ambulatory Orders Medication Instructions Recorded Cholecalciferol (Vitamin D3) 2,000 unit PO DAILY 03/10/18 [Vitamin D3] insulin glargine (U-100) 100 68 unit SUBCUT QHS #15 ml 08/02/18 unit/mL (3 mL) subcutaneous pen insulin lispro (U- 100) 100 14 unit SC TID #15 ml 08/02/18 unit/mL subcutaneous pen Maternal Family History: Family History (Last Reviewed 08/02/18 @ 14:19 by Jocelyn Barlow) Grandfather Diabetes Leukemia Grandmother Diabetes Mother Diabetes Hypertension Father Prostate cancer Grandfather Myocardial infarction Family History: - - Patient notes a maternal family history of diabetes. Paternal Family History: Family History (Last Reviewed 08/02/18 @ 14:19 by Jocelyn Barlow) Grandfather Diabetes Leukemia Grandmother Diabetes Mother Diabetes Hypertension Father Prostate cancer Grandfather Myocardial infarction Family History: - - Patient notes a paternal family history of prostate cancer, hypertension and diabetes. Smoking Status: Never smoker Physical Exam Vital Signs Temp Pulse Resp BP 98.8 F 102 H 18 111/69 09/12/18 11:46 09/12/18 11:46 09/12/18 11:46 09/12/18 11:46 General: Alert, Oriented x3, Cooperative HEENT: Atraumatic, TM's Clear - Lateral eustachian tubes intact Lungs: Clear to auscultation, Normal air movement Cardiovascular: Regular rate, Regular Rhythm Psych/Mental Status: Normal Affect, Appropriate, Alert and oriented to time, place, person, mood and affect Assessment/Plan The patient appears to be tolerating hyperbaric oxygen therapy well, which will be continued as per the patient's medical plan.
[2018-09-12 13:16] LABS: Bedside Glucose 132 mg/dL (70-110)
[2018-09-13 14:25] VITALS: BP 137/79; BP 148/80; PULSE 100; PULSE 102; RESP 16; TEMP 36.5; TEMP 37.1
[2018-09-13 14:26] LABS: Bedside Glucose 114 mg/dL (70-110)
[2018-09-13 16:26] LABS: Bedside Glucose 102 mg/dL (70-110)
[2018-09-13 16:30] VITALS: BP 137/79; PULSE 92; RESP 16; TEMP 36.5; BMI 36.7
--- NOTE | 2018-09-13 16:55 | PN.PCM_ITS ---
(1) Chronic ulcer of left foot with fat layer exposed Status: Chronic Current Visit: Yes Code(s): L97.522 - Non-pressure chronic ulcer of other part of left foot with fat layer exposed (2) Ulcer of right foot with fat layer exposed Status: Chronic Current Visit: Yes Code(s): L97.512 - Non-pressure chronic ulcer of other part of right foot with fat layer exposed (3) Osteomyelitis Status: Resolved Current Visit: Yes Qualifiers: Code(s): M86.9 - Osteomyelitis, unspecified (4) Venous insufficiency Status: Chronic Current Visit: Yes Code(s): I87.2 - Venous insufficiency (chronic) (peripheral) (5) Hammer toe of right foot Status: Chronic Current Visit: Yes Code(s): M20.41 - Other hammer toe(s) (acquired), right foot (6) Malnutrition Status: Acute Current Visit: Yes Code(s): E46 - Unspecified protein-calorie malnutrition Type of Wound Date of Service: 09/13/18 Chief Complaint: Bilateral foot ulcers History of Wound: This 28-year-old female with uncontrolled diabetes returns to clinic for follow-up of bilateral ulcers. She had surgical intervention on August 15, 2018 including right third metatarsal head resection with clearance fragment bone biopsy and debridement of bilateral plantar ulcers with application of advanced wound care products (amnio fill and epi cord). she denies subjective fever, chill, nausea, vomiting. She has been compliant with the dressing recommendations. she is no longer taking antibiotics. She does wear her forefoot offloading wide shoes. She started hyperbaric oxygen therapy sessions and this is going well so far. Progress of Wound: Improving bilateral plantar ulcers. Improving dorsal incision surgical site - Physical Exam Vital Signs Temp Pulse Resp BP 97.7 F L 92 16 137/79 H 09/13/18 16:30 09/13/18 16:30 09/13/18 16:30 09/13/18 16:30 General: Alert, Oriented x3, Cooperative Extremities: No cyanosis, Capillary Refill Less than 3 Seconds, No Calf Tenderness - Negative Chiquita and Rockwell sign bilateral, Diminished Peripheral P ulses, Edema - Mild bilateral lower extremities, Tenderness - No pain with ulcer manipulation bilateral, - - Compartments soft bilateral Skin: Ulcer/ Wound - No purulence, erythema, streaking, odor, or infection. There is no longer deep probing to the plantar right foot ulcer site. There is significant peripheral epithelialization and improvement in granulation base tissue to all ulcer sites. The peripheral skin is hairless and atrophic. There is no eschar or interdigital maceration bilateral Wound Measurements and Assessment WC - Nurse 1 - General Ulcer Measurement Start: 08/23/18 14:04 Freq: Status: Active Protocol: Activity Type Activity Date Activity User E-Sign Co-Sign Detail Recorded Client Recorded Date Recorded By Document 09/13/18 16:30 JF [id number] 09/13/18 16:39 09/13/18 16:30 Wound Center Nurse 1 [Ulcer Assessment] 7-right dorsal foot -Combined with other wound No -Current Size (cm) - Length 0.8 -Current Size (cm) - Width 0.3 -Current Size (cm) - Depth 3 -Total Square Cm 0.24 -Photo Taken Yes -Epithelialization Small 1-33% -Tunneling No -Undermining/Tunneling No -Circular Undermining No -Exudate Amt Small -Exudate Type Serosanguineous -Wound Margin Flat & Intact -Granulation Amt Small (1-33%) -Granulation Quality [place] -Slough/Fibrin Yes -Necrosis Amt Large (67-100%) -Necrotic Tissue Type Adherent Slough -Structure Exposed N/A -Texture (Cheri-wound Skin Appearance) Assessed Localized Edema -Moisture (Cheri-wound Skin Appearance Assessed ) Dry/Scaly -Color (Cheri-wound Skin Appearance) Assessed -Temperature (Cheri-wound Skin No Abnormality Appearance) (Pt Warm) -Tenderness on Palpation (Cheri-wound No Skin Appearance) -Ulcer Cleansing Wound Cleanser -Foul Odor after Cleansing No -Anesthetic Used 4% Lidocaine Solution #3 RIGHT FOOT PLANTAR -Combined with other wound No -Current Size (cm) - Length 0.6 -Current Size (cm) - Width 0.6 -Current Size (cm) - Depth 0.2 -Total Square Cm 0.36 -Photo Taken Yes -Epithelialization Medium 34-66% -Tunneling No -Undermining/Tunneling No -Circular Undermining No -Exudate Amt Small -Exudate Type Serosanguineous -Wound Margin Flat & Intact -Granulation Amt Large (67-100%) -Granulation Quality Red -Slough/Fibrin Yes -Necrosis Amt Small (1-33%) -Necrotic Tissue Type Adherent Slough -Structure Exposed N/A -Texture (Cheri-wound Skin Appearance) Assessed Not Assessed -Moisture (Cheri-wound Skin Appearance Assessed ) Dry/Scaly -Color (Cheri-wound Skin Appearance) Assessed -Temperature (Cheri-wound Skin No Abnormality Appearance) (Pt Warm) -Tenderness on Palpation (Cheri-wound No Skin Appearance) -Ulcer Cleansing Rinsed/ Irrigated with Saline -Foul Odor after Cleansing No -Anesthetic Used 4% Lidocaine Solution #1 LEFT PLANTAR -Combined with other wound No -Current Size (cm) - Length 4.7 -Current Size (cm) - Width 2.3 -Current Size (cm) - Depth 0.3 -Total Square Cm 10.81 -Photo Taken Yes -Epithelialization Large 67-100% -Tunneling No -Undermining/Tunneling No -Circular Undermining No -Exudate Amt Medium -Exudate Type Serosanguineous -Wound Margin Flat & Intact -Granulation Amt Large (67-100%) -Granulation Quality Red -Slough/Fibrin Yes -Necrosis Amt Small (1-33%) -Necrotic Tissue Type Adherent Slough -Structure Exposed N/A -Texture (Cheri-wound Skin Appearance) Assessed Localized Edema -Moisture (Cheri-wound Skin Appearance Assessed ) Dry/Scaly -Color (Cheri-wound Skin Appearance) Assessed -Temperature (Cheri-wound Skin No Abnormality Appearance) (Pt Warm) -Tenderness on Palpation (Cheri-wound No Skin Appearance) -Ulcer Cleansing Wound Cleanser -Foul Odor after Cleansing No -Anesthetic Used 4% Lidocaine Solution [Edema Assessment] -Lower Limb Edema Present NA WC - Nurse 2 - General Ulcer CM Notes Start: 08/23/18 14:04 Freq: Status: Active Protocol: Activity Type Activity Date Activity User E-Sign Co-Sign Detail Recorded Client Recorded Date Recorded By Document 09/13/18 16:46 AN [id number] 09/13/18 16:49 AN 09/13/18 16:46 Wound Center Nurse 2 [Procedure/Treatment] 7-right dorsal foot -Time 16:46 -Post Debridement Size (cm) - Length 0.9 -Post Debridement Size (cm) - Width 0.4 -Post Debridement Size (cm) - Depth 0.3 -Total Square Cm 0.36 -Treatment Response Procedure Tolerated Well #3 RIGHT FOOT PLANTAR -Time 16:46 -Correct Patient Yes -Correct Side, Site, Position Yes -Correct Procedure Yes -Procedure Performed Yes -Type of Procedure Debridement -Clinical Debridement Subcutaneous -Post Debridement Size (cm) - Length 0.7 -Post Debridement Size (cm) - Width 0.7 -Post Debridement Size (cm) - Depth 0.2 -Total Square Cm 0.49 -Treatment Response Procedure Tolerated Well #1 LEFT PLANTAR -Time 16:47 -Correct Patient Yes -Correct Side, Site, Position Yes -Correct Procedure Yes -Procedure Performed Yes -Type of Procedure Debridement -Clinical Debridement Subcutaneous -Post Debridement Size (cm) - Length 4.7 -Post Debridement Size (cm) - Width 2.3 -Post Debridement Size (cm) - Depth 0.3 -Total Square Cm 10.81 -Treatment Response Procedure Tolerated Well [See Physician Procedure note for Specifics] Pain Scale: 0-10 Numeric [Pain] -Is Patient Pain Free? Yes Musculoskeletal: No Tenderness to Palpation of Joints or Extremities, Muscle Wasting, - - Dorsal contraction of lesser toes bilateral. No exposed bone or joint bilateral Neurological: - - Lack of epicritic sensation light touch consistent with neuropathy status Psych/Mental Status: Normal Affect, Appropriate Debridement Note Post-Debridement Measurements/Treatment WC - Nurse 2 - General Ulcer CM Notes Start: 08/23/18 14:04 Freq: Status: Active Protocol: Activity Type Activity Date Activity User E-Sign Co-Sign Detail Recorded Client Recorded Date Recorded By Document 08/23/18 14:46 JF [id number] 08/23/18 14:49 JF Document 08/30/18 11:26 DL [id number] 08/30/18 11:33 DL Document 09/06/18 16:26 AN [id number] 09/06/18 16:31 AN Document 09/13/18 16:46 AN [id number] 09/13/18 16:49 AN 08/23/18 08/30/18 09/06/18 14:46 11:26 16:26 Wound Center Nurse 2 7-right dorsal foot -Time -Post Debridement Size (cm) - Length -Post Debridement Size (cm) - Width -Post Debridement Size (cm) - Depth -Total Square Cm -Treatment Response #4 RIGHT GREAT TOE MEDIAL -Time 14:46 -Correct Patient No -Correct Side, Site, Position No -Correct Procedure No -Procedure Performed No -Offloading Yes -Type of Offloading Surgical Shoe #3 RIGHT FOOT PLANTAR -Time 14:46 11:32 16:29 -Correct Patient No Yes Yes -Correct Side, Site, Position No Yes Yes -Correct Procedure No Yes Yes -Procedure Performed No Yes Yes -Type of Procedure Debridement Debridement -Clinical Debridement Subcutaneous Subcutaneous -Post Debridement Size (cm) - Length 1.3 0.8 -Post Debridement Size (cm) - Width 0.9 0.8 -Post Debridement Size (cm) - Depth 0.3 0.2 -Total Square Cm 1.17 0.64 -Wound/Ulcer Outcome Not Healed -Ulcer Cleansing Rinsed/ Irrigated with Saline -Foul Odor after Cleansing No -Bioengineered Tissue No -Bleeding Controlled with Pressure -Offloading Yes Yes -Type of Offloading Surgical Shoe Surgical Shoe -Treatment Response Procedure Not Procedure Tolerated Well Tolerated Well #1 LEFT PLANTAR -Time 14:46 11:33 16:29 -Correct Patient No Yes Yes -Correct Side, Site, Position No Yes Yes -Correct Procedure No Yes Yes -Procedure Performed No Yes Yes -Type of Procedure Debridement Debridement -Clinical Debridement Subcutaneous Subcutaneous -Post Debridement Size (cm) - Length 5 5 -Post Debridement Size (cm) - Width 2.5 2.7 -Post Debridement Size (cm) - Depth 0.4 0.2 -Total Square Cm 12.5 13.5 -Wound/Ulcer Outcome Not Healed -Ulcer Cleansing Rinsed/ Irrigated with Saline -Foul Odor after Cleansing No -Bioengineered Tissue No -Bleeding Controlled with Pressure -Offloading Yes Yes -Type of Offloading Surgical Shoe Surgical Shoe -Treatment Response Procedure Procedure Tolerated Well Tolerated Well Pain Scale: 0-10 Numeric Is Patient Pain Free? Yes Yes Yes 09/13/18 16:46 Wound Center Nurse 2 7-right dorsal foot -Time 16:46 -Post Debridement Size (cm) - Length 0.9 -Post Debridement Size (cm) - Width 0.4 -Post Debridement Size (cm) - Depth 0.3 -Total Square Cm 0.36 -Treatment Response Procedure Tolerated Well #4 RIGHT GREAT TOE MEDIAL -Time -Correct Patient -Correct Side, Site, Position -Correct Procedure -Procedure Performed -Offloading -Type of Offloading #3 RIGHT FOOT PLANTAR -Time 16:46 -Correct Patient Yes -Correct Side, Site, Position Yes -Correct Procedure Yes -Procedure Performed Yes -Type of Procedure Debridement -Clinical Debridement Subcutaneous -Post Debridement Size (cm) - Length 0.7 -Post Debridement Size (cm) - Width 0.7 -Post Debridement Size (cm) - Depth 0.2 -Total Square Cm 0.49 -Wound/Ulcer Outcome -Ulcer Cleansing -Foul Odor after Cleansing -Bioengineered Tissue -Bleeding Controlled with -Offloading -Type of Offloading -Treatment Response Procedure Tolerated Well #1 LEFT PLANTAR -Time 16:47 -Correct Patient Yes -Correct Side, Site, Position Yes -Correct Procedure Yes -Procedure Performed Yes -Type of Procedure Debridement -Clinical Debridement Subcutaneous -Post Debridement Size (cm) - Length 4.7 -Post Debridement Size (cm) - Width 2.3 -Post Debridement Size (cm) - Depth 0.3 -Total Square Cm 10.81 -Wound/Ulcer Outcome -Ulcer Cleansing -Foul Odor after Cleansing -Bioengineered Tissue -Bleeding Controlled with -Offloading -Type of Offloading -Treatment Response Procedure Tolerated Well Pain Scale: 0-10 Numeric Is Patient Pain Free? Yes Wound debrided: dorsal foot Laterality: Right Wound Grade/Stage: surgical/grade 1 Type of Debridement: Excisional debridement Anesthesia Used: 5% Lidocaine Gel Depth: in the subcutaneous layer Percentage of wound debrided: 100 Instrument Used: #15 blade Tissue Removed: fibrous, devitalized subcutaneous, biofilm, slough Severity: Fat Layer Exposed Amount of bleeding with debridement: Mild Bleeding Controlled with: Pressure Patient tolerated procedure well - Additional Wound Wound debrided: plantar central metatarsal head Laterality: Right Wound Grade/Stage: grade 3 Type of Debridement: Excisional debridement Anesthesia Used: 5% Lidocaine Gel Depth: in the subcutaneous layer Percentage of wound debrided: 100 Instrument Used: #15 blade Tissue Removed: fibrous, devitalized subcutaneous, biofilm, slough Severity: Fat Layer Exposed Amount of bleeding with debridement: Mild Bleeding Controlled with: Pressure Patient tolerated procedure: Patient tolerated procedure well - Additional Wound Wound debrided: plantar medial foot Laterality: Left Wound Grade/Stage: grade 3 Type of Debridement: Excisional debridement Anesthesia Used: 5% Lidocaine Gel Depth: in the subcutaneous layer Percentage of wound debrided: 100 Instrument Used: #15 blade Tissue Removed: fibrous, devitalized subcutaneous, biofilm, slough Severity: Fat Layer Exposed Amount of bleeding with debridement: Mild Bleeding Controlled with: Pressure Patient tolerated procedure: Patient tolerated procedure well Assessment/Plan Active Problems (Last Reviewed 08/02/18 @ 14:19 by Jocelyn Barlow) Venous insufficiency (Chronic) Hammer toe of right foot (Chronic) Malnutrition (Acute) Ulcer of right foot with fat layer exposed (Chronic) Chronic ulcer of left foot with fat layer exposed (Chronic) Assessment: see above diagnoses Plan: I reviewed and discussed her care plan today. Debridement was performed today as noted in the clinical panel. A dressing consisting of fibricol was applied. To change daily at home as advised. No additional antibiotics are recommended at this time. Her intraoperative microbiology and pathology results were reviewed. It is noted that no acute osteomyelitis was confirmed with the clearance fragment pathology specimen. There is additionally no bacterial growth noted in the clearance fragment. The bacterial growth identified in the resected third metatarsal head was adequately covered by Augmentin. To continue to follow-up for medical management with PCP and endocrinology. She has started hyperbaric oxygen therapy sessions and this is going well so far. The patient was educated on the importance of diet on wound healing and instructed to increase protein and vitamin C intake. To use assistive devices. To continue follow-up with nutrition services. I recommend more aggressive offloading. She is having difficulty using assistive devices and wheelchair which is compromising her care plan. To continue with bilateral forefoot offloading wedge surgical shoes with use of assistive device and continued reduced walking activity. Lack of compliance is compromising her care plan and delaying healing. She understands this. . Her most recent noninvasive vascular studies were reviewed from April 2018 with bilateral ankle-brachial indices 1.23. Her results demonstrated normal arterial perfusion. Her venous duplex Doppler studies with reflux evaluation were also reviewed and the results were discussed. 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 I do recommend future vascular surgeon referral to see if intervention may be completed. I recommend focusing on her surgery and initiation of hyperbaric oxygen therapy as a priority at this time. She will consider venous intervention. To follow-up with the wound healing center in 1 week. Answered her questions.
--- NOTE | 2018-09-14 08:20 | PCM.HBO.PN ---
History of Present Illness Date of Service: 09/13/18 Presenting Chief Complaint: Bilateral foot ulcers DON COTTO is a 28 year old currently undergoing hyperbaric oxygen therapy for bilateral diabetic foot ulcer, osteomyelitis. Progress: Today is the 2nd session of hyperbaric oxygen therapy. Tolerance of hyperbaric oxygen therapy: Hyperbaric oxygen therapy was administered as per the facility's protocol. The patient tolerated hyperbaric oxygen therapy well, without complaints or complications. Upon emergence from the hyperbaric chamber, the patient's vital signs remained stable. She was discharged in good condition. Past Medical History Chronic Problems (Last Reviewed 08/02/18 @ 14:19 by Jocelyn Barlow) Dehiscence of closure of subcutaneous tissue (Chronic) Hallux limitus of right foot (Chronic) Abscess of right foot (Chronic) Diabetes mellitus type 2, uncontrolled, with complications (Chronic) Venous insufficiency (Chronic) Hammer toe of right foot (Chronic) Hammer toe of left foot (Chronic) Pre-ulcerative corn or callous (Chronic) Deformity of metatarsal (Chronic) Diabetic foot ulcer (Chronic) Ulcer of right foot with fat layer exposed (Chronic) Chronic ulcer of left foot with fat layer exposed (Chronic) Endometriosis (Chronic) Diabetes (Chronic) 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) Ulcer of right foot with necrosis of muscle (Chronic) Obesity (BMI 30.0-34.9) (Chronic) Diabetes mellitus, type II (Chronic) Allergies/Adverse Reactions: Allergies clindamycin Allergy (Verified 08/15/18 12:04) Hives vancomycin Allergy (Verified 08/15/18 12:04) Hives/makes my heart race Home Medications: Ambulatory Orders Medication Instructions Recorded Cholecalciferol (Vitamin D3) 2,000 unit PO DAILY 03/10/18 [Vitamin D3] insulin glargine (U-100) 100 68 unit SUBCUT QHS #15 ml 08/02/18 unit/mL (3 mL) subcutaneous pen insulin lispro (U- 100) 100 14 unit SC TID #15 ml 08/02/18 unit/mL subcutaneous pen Maternal Family History: Family History (Last Reviewed 08/02/18 @ 14:19 by Jocelyn Barlow) Grandfather Diabetes Leukemia Grandmother Diabetes Mother Diabetes Hypertension Father Prostate cancer Grandfather Myocardial infarction Family History: - - Patient notes a maternal family history of diabetes. Paternal Family History: Family History (Last Reviewed 08/02/18 @ 14:19 by Jocelyn Barlow) Grandfather Diabetes Leukemia Grandmother Diabetes Mother Diabetes Hypertension Father Prostate cancer Grandfather Myocardial infarction Family History: - - Patient notes a paternal family history of prostate cancer, hypertension and diabetes. Smoking Status: Never smoker Physical Exam Vital Signs Temp Pulse Resp BP 97.7 F L 92 16 137/79 H 09/13/18 16:30 09/13/18 16:30 09/13/18 16:30 09/13/18 16:30 General: Alert, Oriented x3, Cooperative, No apparent distress HEENT: Atraumatic, TM's Clear Lungs: Clear to auscultation, Normal air movement Cardiovascular: Regular rate, Regular Rhythm Psych/Mental Status: Normal Affect, Appropriate, Alert and oriented to time, place, person, mood and affect Assessment/Plan Active Problems (Last Reviewed 08/02/18 @ 14:19 by Jocelyn Barlow) Venous insufficiency (Chronic) Hammer toe of right foot (Chronic) Malnutrition (Acute) Ulcer of right foot with fat layer exposed (Chronic) Chronic ulcer of left foot with fat layer exposed (Chronic) The patient appears to be tolerating hyperbaric oxygen therapy well, which will be continued as per the patient's medical plan.
[2018-09-14 12:06] LABS: Bedside Glucose 204 mg/dL (70-110)
[2018-09-14 12:15] VITALS: BP 108/75; BP 123/78; PULSE 92; PULSE 98; RESP 16; TEMP 36.5; TEMP 36.8
[2018-09-14 14:25] LABS: Bedside Glucose 163 mg/dL (70-110)
== END 2018-09-17 23:59 ==
LOC: WC 12:00
PROVIDERS: Family Provider Internal Medicine; PCP Internal Medicine; Referring Provider Podiatrist; Visit Provider Podiatrist
DX: E11.621 Type 2 diabetes mellitus with foot ulcer (principal); L97.522 Non-pressure chronic ulcer of other part of left foot with fat layer exposed; L97.512 Non-pressure chronic ulcer of other part of right foot with fat layer exposed; M20.5X1 Other deformities of toe(s) (acquired), right foot; M20.41 Other hammer toe(s) (acquired), right foot; M20.42 Other hammer toe(s) (acquired), left foot; I87.2 Venous insufficiency (chronic) (peripheral); E11.65 Type 2 diabetes mellitus with hyperglycemia; E11.42 Type 2 diabetes mellitus with diabetic polyneuropathy; E66.9 Obesity, unspecified; Z68.37 Body mass index [BMI] 37.0-37.9, adult; Z71.3 Dietary counseling and surveillance
CPT/HCPCS: 11042; 82962; 99183; 99212; 99214; G0277; G0463

== ENCOUNTER 2018-10-12 14:00 | Outpatient (RCR) | payer OTHER, SELFPAY ==
[2018-09-13 16:30] VITALS: BMI 36.7
[2018-09-18 00:58] VITALS: BP 108/75; PULSE 92; RESP 16; TEMP 36.8
[2018-09-18 16:11] LABS: Bedside Glucose 129 mg/dL (70-110)
[2018-09-18 16:19] VITALS: BP 122/70; BP 140/81; PULSE 106; PULSE 95; RESP 16; RESP 18; TEMP 36.1; TEMP 36.6
--- NOTE | 2018-09-18 16:46 | PCM.HBO.PN ---
History of Present Illness Date of Service: 09/18/18 Presenting Chief Complaint: Left foot diabetic ulceration, Camacho grade 3 DON COTTO is a 28 year old currently undergoing hyperbaric oxygen therapy for diabetic left foot ulceration,Camacho Grade 3 Progress: Today's session represents the fourth such session of hyperbaric oxygen therapy. 40 such sessions are planned. Today's session was well tolerated. Tolerance of hyperbaric oxygen therapy: Hyperbaric oxygen therapy was administered as per the facility protocol. The patient tolerated hyperbaric oxygen therapy well, without complaints or complications. Upon emergence from the hyperbaric chamber, the patient's vital signs remained stable. The patient was discharged in good condition. Past Medical History Chronic Problems (Last Reviewed 08/02/18 @ 14:19 by Jocelyn Barlow) Dehiscence of closure of subcutaneous tissue (Chronic) Hallux limitus of right foot (Chronic) Abscess of right foot (Chronic) Diabetes mellitus type 2, uncontrolled, with complications (Chronic) Venous insufficiency (Chronic) Hammer toe of right foot (Chronic) Hammer toe of left foot (Chronic) Pre-ulcerative corn or callous (Chronic) Deformity of metatarsal (Chronic) Diabetic foot ulcer (Chronic) Ulcer of right foot with fat layer exposed (Chronic) Chronic ulcer of left foot with fat layer exposed (Chronic) Endometriosis (Chronic) Diabetes (Chronic) 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) Ulcer of right foot with necrosis of muscle (Chronic) Obesity (BMI 30.0-34.9) (Chronic) Diabetes mellitus, type II (Chronic) Allergies/Adverse Reactions: Allergies clindamycin Allergy (Verified 08/15/18 12:04) Hives vancomycin Allergy (Verified 08/15/18 12:04) Hives/makes my heart race Home Medications: Ambulatory Orders Medication Instructions Recorded Cholecalciferol (Vitamin D3) 2,000 unit PO DAILY 03/10/18 [Vitamin D3] insulin glargine (U-100) 100 68 unit SUBCUT QHS #15 ml 08/02/18 unit/mL (3 mL) subcutaneous pen insulin lispro (U- 100) 100 14 unit SC TID #15 ml 08/02/18 unit/mL subcutaneous pen Maternal Family History: Family History (Last Reviewed 08/02/18 @ 14:19 by Jocelyn Barlow) Grandfather Diabetes Leukemia Grandmother Diabetes Mother Diabetes Hypertension Father Prostate cancer Grandfather Myocardial infarction Family History: - - Patient notes a maternal family history of diabetes. Paternal Family History: Family History (Last Reviewed 08/02/18 @ 14:19 by Jocelyn Barlow) Grandfather Diabetes Leukemia Grandmother Diabetes Mother Diabetes Hypertension Father Prostate cancer Grandfather Myocardial infarction Family History: - - Patient notes a paternal family history of prostate cancer, hypertension and diabetes. Smoking Status: Never smoker Physical Exam Vital Signs Temp Pulse Resp BP 97.8 F 106 H 18 122/70 H 09/18/18 16:19 09/18/18 16:19 09/18/18 16:19 09/18/18 16:19 General: Alert, Oriented x3, Cooperative, No apparent distress, Well developed, Well nourished HEENT: Atraumatic, PERRLA, EOMI, Normocephalic Lungs: Normal air movement Psych/Mental Status: Normal Affect, Appropriate, Alert and oriented to time, place, person, mood and affect Assessment/Plan Patient tolerated hyperbaric oxygen therapy well, which will be continued as per the patient's medical plan.
[2018-09-19 07:05] LABS: Bedside Glucose 158 mg/dL (70-110)
[2018-09-19 10:21] LABS: Bedside Glucose 142 mg/dL (70-110)
--- NOTE | 2018-09-19 10:50 | PCM.HBO.PN ---
History of Present Illness Date of Service: 09/19/18 Presenting Chief Complaint: Left foot diabetic ulceration, Camacho grade 3 DON COTTO is a 28 year old currently undergoing hyperbaric oxygen therapy for diabetic left foot ulceration,Camacho Grade 3 Progress: Today's session represents the 5th such session of hyperbaric oxygen therapy. 40 such sessions are planned. Today's session was well tolerated. Tolerance of hyperbaric oxygen therapy: Hyperbaric oxygen therapy was administered as per the facility protocol. The patient tolerated hyperbaric oxygen therapy well, without complaints or complications. Upon emergence from the hyperbaric chamber, the patient's vital signs remained stable. The patient was discharged in good condition. Past Medical History Chronic Problems (Last Reviewed 08/02/18 @ 14:19 by Jocelyn Barlow) Dehiscence of closure of subcutaneous tissue (Chronic) Hallux limitus of right foot (Chronic) Abscess of right foot (Chronic) Diabetes mellitus type 2, uncontrolled, with complications (Chronic) Venous insufficiency (Chronic) Hammer toe of right foot (Chronic) Hammer toe of left foot (Chronic) Pre-ulcerative corn or callous (Chronic) Deformity of metatarsal (Chronic) Diabetic foot ulcer (Chronic) Ulcer of right foot with fat layer exposed (Chronic) Chronic ulcer of left foot with fat layer exposed (Chronic) Endometriosis (Chronic) Diabetes (Chronic) 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) Ulcer of right foot with necrosis of muscle (Chronic) Obesity (BMI 30.0-34.9) (Chronic) Diabetes mellitus, type II (Chronic) Allergies/Adverse Reactions: Allergies clindamycin Allergy (Verified 08/15/18 12:04) Hives vancomycin Allergy (Verified 08/15/18 12:04) Hives/makes my heart race Home Medications: Ambulatory Orders Medication Instructions Recorded Cholecalciferol (Vitamin D3) 2,000 unit PO DAILY 03/10/18 [Vitamin D3] insulin glargine (U-100) 100 68 unit SUBCUT QHS #15 ml 08/02/18 unit/mL (3 mL) subcutaneous pen insulin lispro (U- 100) 100 14 unit SC TID #15 ml 08/02/18 unit/mL subcutaneous pen Maternal Family History: Family History (Last Reviewed 08/02/18 @ 14:19 by Jocelyn Barlow) Grandfather Diabetes Leukemia Grandmother Diabetes Mother Diabetes Hypertension Father Prostate cancer Grandfather Myocardial infarction Family History: - - Patient notes a maternal family history of diabetes. Paternal Family History: Family History (Last Reviewed 08/02/18 @ 14:19 by Jocelyn Barlow) Grandfather Diabetes Leukemia Grandmother Diabetes Mother Diabetes Hypertension Father Prostate cancer Grandfather Myocardial infarction Family History: - - Patient notes a paternal family history of prostate cancer, hypertension and diabetes. Smoking Status: Never smoker Physical Exam Vital Signs Temp Pulse Resp BP 97.8 F 106 H 18 122/70 H 09/18/18 16:19 09/18/18 16:19 09/18/18 16:19 09/18/18 16:19 General: Alert, Oriented x3, Cooperative, No apparent distress HEENT: Atraumatic, TM's Clear Lungs: Clear to auscultation, Normal air movement Cardiovascular: Regular rate, Regular Rhythm Psych/Mental Status: Normal Affect, Appropriate, Alert and oriented to time, place, person, mood and affect Assessment/Plan Patient tolerated hyperbaric oxygen therapy well, which will be continued as per the patient's medical plan.
[2018-09-19 12:04] VITALS: BP 125/69; BP 141/85; PULSE 90; PULSE 96; RESP 16; RESP 18; TEMP 36.2; TEMP 36.6
[2018-09-19 12:20] LABS: Bedside Glucose 145 mg/dL (70-110)
[2018-09-20 14:05] LABS: Bedside Glucose 178 mg/dL (70-110)
--- NOTE | 2018-09-20 14:17 | PCM.HBO.PN ---
History of Present Illness Date of Service: 09/20/18 Presenting Chief Complaint: Left foot diabetic ulceration, Camacho grade 3 DON COTTO is a 28 year old currently undergoing hyperbaric oxygen therapy for diabetic left foot ulceration,Camacho Grade 3 Progress: Today's session represents the 6th such session of hyperbaric oxygen therapy. 40 such sessions are planned. Today's session was well tolerated. Tolerance of hyperbaric oxygen therapy: Hyperbaric oxygen therapy was administered as per the facility protocol. The patient tolerated hyperbaric oxygen therapy well, without complaints or complications. Upon emergence from the hyperbaric chamber, the patient's vital signs remained stable. The patient was discharged in good condition. Past Medical History Chronic Problems (Last Reviewed 08/02/18 @ 14:19 by Jocelyn Barlow) Dehiscence of closure of subcutaneous tissue (Chronic) Hallux limitus of right foot (Chronic) Abscess of right foot (Chronic) Diabetes mellitus type 2, uncontrolled, with complications (Chronic) Venous insufficiency (Chronic) Hammer toe of right foot (Chronic) Hammer toe of left foot (Chronic) Pre-ulcerative corn or callous (Chronic) Deformity of metatarsal (Chronic) Diabetic foot ulcer (Chronic) Ulcer of right foot with fat layer exposed (Chronic) Chronic ulcer of left foot with fat layer exposed (Chronic) Endometriosis (Chronic) Diabetes (Chronic) 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) Ulcer of right foot with necrosis of muscle (Chronic) Obesity (BMI 30.0-34.9) (Chronic) Diabetes mellitus, type II (Chronic) Allergies/Adverse Reactions: Allergies clindamycin Allergy (Verified 08/15/18 12:04) Hives vancomycin Allergy (Verified 08/15/18 12:04) Hives/makes my heart race Home Medications: Ambulatory Orders Medication Instructions Recorded Cholecalciferol (Vitamin D3) 2,000 unit PO DAILY 03/10/18 [Vitamin D3] insulin glargine (U-100) 100 68 unit SUBCUT QHS #15 ml 08/02/18 unit/mL (3 mL) subcutaneous pen insulin lispro (U- 100) 100 14 unit SC TID #15 ml 08/02/18 unit/mL subcutaneous pen Maternal Family History: Family History (Last Reviewed 08/02/18 @ 14:19 by Jocelyn Barlow) Grandfather Diabetes Leukemia Grandmother Diabetes Mother Diabetes Hypertension Father Prostate cancer Grandfather Myocardial infarction Family History: - - Patient notes a maternal family history of diabetes. Paternal Family History: Family History (Last Reviewed 08/02/18 @ 14:19 by Jocelyn Barlow) Grandfather Diabetes Leukemia Grandmother Diabetes Mother Diabetes Hypertension Father Prostate cancer Grandfather Myocardial infarction Family History: - - Patient notes a paternal family history of prostate cancer, hypertension and diabetes. Smoking Status: Never smoker Physical Exam Vital Signs Temp Pulse Resp BP 97.9 F 96 18 125/69 H 09/19/18 12:04 09/19/18 12:04 09/19/18 12:04 09/19/18 12:04 General: Alert, Oriented x3, Cooperative, No apparent distress HEENT: Atraumatic, TM's Clear Lungs: Clear to auscultation, Normal air movement Cardiovascular: Regular rate, Regular Rhythm Psych/Mental Status: Normal Affect, Appropriate, Alert and oriented to time, place, person, mood and affect Assessment/Plan Patient tolerated hyperbaric oxygen therapy well, which will be continued as per the patient's medical plan.
[2018-09-20 14:25] VITALS: BP 123/62; BP 140/91; PULSE 98; PULSE 99; RESP 18; TEMP 36.7; TEMP 36.9
[2018-09-20 16:11] VITALS: BP 140/91; PULSE 98; RESP 16; TEMP 36.9; BMI 36.7
[2018-09-20 16:11] LABS: Bedside Glucose 150 mg/dL (70-110)
--- NOTE | 2018-09-20 16:33 | PCM.WC.PN ---
(1) Chronic ulcer of left foot with fat layer exposed Status: Chronic Current Visit: Yes Code(s): L97.522 - Non-pressure chronic ulcer of other part of left foot with fat layer exposed (2) Ulcer of right foot with fat layer exposed Status: Chronic Current Visit: Yes Code(s): L97.512 - Non-pressure chronic ulcer of other part of right foot with fat layer exposed (3) Delayed wound healing Status: Chronic Current Visit: Yes Code(s): T14.8XXD - Other injury of unspecified body region, subsequent encounter (4) Malnutrition Status: Chronic Current Visit: Yes Code(s): E46 - Unspecified protein-calorie malnutrition (5) Type 2 diabetes mellitus with diabetic polyneuropathy Status: Chronic Current Visit: Yes Code(s): E11.42 - Type 2 diabetes mellitus with diabetic polyneuropathy Type of Wound Date of Service: 09/20/18 Chief Complaint: Left foot ulcer. Right foot ulcers History of Wound: This 28-year-old female with uncontrolled diabetes returns to clinic for follow-up of bilateral ulcers. She had surgical intervention on August 15, 2018 including right third metatarsal head resection with clearance fragment bone biopsy and debridement of bilateral plantar ulcers with application of advanced wound care products (amnio fill and epi cord). she denies subjective fever, chill, nausea, vomiting. She has been compliant with the dressing recommendations. she is no longer taking antibiotics. She does wear her forefoot offloading wide shoes. She started hyperbaric oxygen therapy sessions and this is going well so far. Progress of Wound: Improving bilateral plantar ulcers. Improving dorsal incision surgical site - Physical Exam Vital Signs Temp Pulse Resp BP 98.4 F 98 16 140/91 H 09/20/18 16:11 09/20/18 16:11 09/20/18 16:11 09/20/18 16:11 General: Alert, Oriented x3, Cooperative Extremities: No cyanosis, Capillary Refill Less than 3 Seconds, No Calf Tenderness - Negative Chiquita and Rockwell sign bilateral, Diminished Peripheral Pulses, Edema - Mild bilateral, - - Prominent diffuse metatarsal head right foot with dorsal contraction of toes. Compartments soft to palpate bilateral lower extremities Skin: Ulcer/ Wound - No purulence, erythema, streaking, odor, or infection or deep probing or eschar bilateral. There is no interdigital maceration bilateral. The peripheral skin is hairless and atrophic bilateral Wound Measurements and Assessment WC - Nurse 1 - General Ulcer Measurement Start: 09/18/18 16:19 Freq: Status: Active Protocol: Activity Type Activity Date Activity User E-Sign Co-Sign Detail Recorded Client Recorded Date Recorded By Document 09/20/18 16:11 [facility] [id number] 09/20/18 16:19 [facility] 09/20/18 16:11 Wound Center Nurse 1 [Ulcer Assessment] 7-right dorsal foot -Combined with other wound No -Current Size (cm) - Length 0.1 -Current Size (cm) - Width 0.1 -Current Size (cm) - Depth 0.1 -Total Square Cm 0.01 -Photo Taken No -Tunneling No -Undermining/Tunneling No -Circular Undermining No -Exudate Amt None Present -Slough/Fibrin Yes -Necrosis Amt Large (67-100%) -Necrotic Tissue Type Eschar -Texture (Cheri-wound Skin Appearance) Assessed Scarring -Moisture (Cheri-wound Skin Appearance Assessed ) Dry/Scaly -Color (Cheri-wound Skin Appearance) Assessed -Temperature (Cheri-wound Skin No Abnormality Appearance) (Pt Warm) -Tenderness on Palpation (Cheri-wound No Skin Appearance) -Ulcer Cleansing Wound Cleanser -Foul Odor after Cleansing No -Anesthetic Used 4% Lidocaine Solution #4 RIGHT GREAT TOE MEDIAL -Combined with other wound No -Current Size (cm) - Length 0 -Current Size (cm) - Width 0 -Current Size (cm) - Depth 0 -Total Square Cm 0 -Epithelialization Large 67-100% -Tunneling No -Undermining/Tunneling No -Circular Undermining No -Exudate Amt None Present -Texture (Cheri-wound Skin Appearance) Callus Scarring -Moisture (Cheri-wound Skin Appearance Assessed ) Dry/Scaly -Color (Cheri-wound Skin Appearance) Assessed -Temperature (Cheri-wound Skin No Abnormality Appearance) (Pt Warm) -Tenderness on Palpation (Cheri-wound No Skin Appearance) -Ulcer Cleansing Wound Cleanser -Foul Odor after Cleansing No -Anesthetic Used 4% Lidocaine Solution #3 RIGHT FOOT PLANTAR -Combined with other wound No -Current Size (cm) - Length 0.2 -Current Size (cm) - Width 0.3 -Current Size (cm) - Depth 0.2 -Total Square Cm 0.06 -Photo Taken No -Epithelialization None Present -Tunneling No -Undermining/Tunneling No -Circular Undermining No -Exudate Amt Small -Exudate Type Serosanguineous -Wound Margin Distinct, Outline Attached -Granulation Amt Medium (34-66%) -Granulation Quality [place] -Slough/Fibrin Yes -Necrosis Amt Medium (34-66%) -Necrotic Tissue Type Adherent Slough -Texture (Cheri-wound Skin Appearance) Callus Scarring -Moisture (Cheri-wound Skin Appearance Assessed ) Dry/Scaly -Color (Cheri-wound Skin Appearance) Assessed -Temperature (Cheri-wound Skin No Abnormality Appearance) (Pt Warm) -Tenderness on Palpation (Cheri-wound No Skin Appearance) -Ulcer Cleansing Wound Cleanser -Foul Odor after Cleansing No -Anesthetic Used 4% Lidocaine Solution #1 LEFT PLANTAR -Combined with other wound No -Current Size (cm) - Length 4.8 -Current Size (cm) - Width 2.2 -Current Size (cm) - Depth 0.2 -Total Square Cm 10.56 -Photo Taken No -Epithelialization None Present -Tunneling No -Undermining/Tunneling No -Circular Undermining No -Classification - Thickness Full Thickness without Exposed Support Structure -Exudate Amt Medium -Exudate Type Serosanguineous -Wound Margin Distinct, Outline Attached -Granulation Amt Large (67-100%) -Granulation Quality Red -Slough/Fibrin No -Necrosis Amt None Present (0 %) -Texture (Cheri-wound Skin Appearance) Callus Scarring -Moisture (Cheri-wound Skin Appearance Assessed ) Dry/Scaly -Color (Cheri-wound Skin Appearance) Assessed -Temperature (Cheri-wound Skin No Abnormality Appearance) (Pt Warm) -Tenderness on Palpation (Cheri-wound No Skin Appearance) -Ulcer Cleansing Wound Cleanser -Foul Odor after Cleansing No -Anesthetic Used 4% Lidocaine Solution [Edema Assessment] -Lower Limb Edema Present Yes -Right Calf (cm) 41 -Right Ankle (cm) 24 -Left Calf (cm) 41.4 -Left Ankle (cm) 24.2 WC - Nurse 2 - General Ulcer CM Notes Start: 09/18/18 16:19 Freq: Status: Active Protocol: Activity Type Activity Date Activity User E-Sign Co-Sign Detail Recorded Client Recorded Date Recorded By Document 09/20/18 16:26 [facility] [id number] 09/20/18 16:30 JF 09/20/18 16:26 Wound Center Nurse 2 [Procedure/Treatment] 7-right dorsal foot -Time 16:28 -Correct Patient Yes -Correct Side, Site, Position Yes -Correct Procedure Yes -Procedure Performed Yes -Type of Procedure Debridement -Clinical Debridement Subcutaneous -Post Debridement Size (cm) - Length 0.8 -Post Debridement Size (cm) - Width 0.3 -Post Debridement Size (cm) - Depth 0.2 -Total Square Cm 0.24 -Wound/Ulcer Outcome Not Healed -Ulcer Cleansing Rinsed/ Irrigated with Saline -Foul Odor after Cleansing No -Bioengineered Tissue No -Bleeding Controlled with Pressure -Offloading Yes -Type of Offloading Surgical Shoe -Treatment Response Procedure Tolerated Well #4 RIGHT GREAT TOE MEDIAL -Correct Patient No -Correct Side, Site, Position No -Correct Procedure No -Procedure Performed No -Post Debridement Size (cm) - Length 0 -Post Debridement Size (cm) - Width 0 -Post Debridement Size (cm) - Depth 0 -Total Square Cm 0 -Wound/Ulcer Outcome Healed- Epithelialized #3 RIGHT FOOT PLANTAR -Time 16:27 -Correct Patient Yes -Correct Side, Site, Position Yes -Correct Procedure Yes -Procedure Performed Yes -Type of Procedure Debridement -Clinical Debridement Subcutaneous -Post Debridement Size (cm) - Length 0.3 -Post Debridement Size (cm) - Width 0.3 -Post Debridement Size (cm) - Depth 0.2 -Total Square Cm 0.09 -Wound/Ulcer Outcome Not Healed -Ulcer Cleansing Rinsed/ Irrigated with Saline -Foul Odor after Cleansing No -Bioengineered Tissue No -Bleeding Controlled with Pressure -Offloading Yes -Type of Offloading Surgical Shoe -Treatment Response Procedure Tolerated Well #1 LEFT PLANTAR -Time 16:27 -Correct Patient Yes -Correct Side, Site, Position Yes -Correct Procedure Yes -Procedure Performed Yes -Type of Procedure Debridement -Clinical Debridement Subcutaneous -Post Debridement Size (cm) - Length 4.8 -Post Debridement Size (cm) - Width 2.3 -Post Debridement Size (cm) - Depth 0.2 -Total Square Cm 11.04 -Wound/Ulcer Outcome Not Healed -Ulcer Cleansing Rinsed/ Irrigated with Saline -Foul Odor after Cleansing No -Bioengineered Tissue No -Bleeding Controlled with Pressure -Offloading Yes -Type of Offloading Surgical Shoe -Treatment Response Procedure Tolerated Well [See Physician Procedure note for Specifics] Pain Scale: 0-10 Numeric [Pain] -Is Patient Pain Free? Yes Musculoskeletal: No Tenderness to Palpation of Joints or Extremities, Muscle Wasting Neurological: - - Lack of normal epicritic sensation light touch bilateral lower extremities Psych/Mental Status: Normal Affect, Appropriate Debridement Note Post-Debridement Measurements/Treatment WC - Nurse 2 - General Ulcer CM Notes Start: 09/18/18 16:19 Freq: Status: Active Protocol: Activity Type Activity Date Activity User E-Sign Co-Sign Detail Recorded Client Recorded Date Recorded By Document 09/20/18 16:26 [id number] 09/20/18 16:30 [facility] 09/20/18 16:26 Wound Center Nurse 2 7-right dorsal foot -Time 16:28 -Correct Patient Yes -Correct Side, Site, Position Yes -Correct Procedure Yes -Procedure Performed Yes -Type of Procedure Debridement -Clinical Debridement Subcutaneous -Post Debridement Size (cm) - Length 0.8 -Post Debridement Size (cm) - Width 0.3 -Post Debridement Size (cm) - Depth 0.2 -Total Square Cm 0.24 -Wound/Ulcer Outcome Not Healed -Ulcer Cleansing Rinsed/ Irrigated with Saline -Foul Odor after Cleansing No -Bioengineered Tissue No -Bleeding Controlled with Pressure -Offloading Yes -Type of Offloading Surgical Shoe -Treatment Response Procedure Tolerated Well #4 RIGHT GREAT TOE MEDIAL -Correct Patient No -Correct Side, Site, Position No -Correct Procedure No -Procedure Performed No -Post Debridement Size (cm) - Length 0 -Post Debridement Size (cm) - Width 0 -Post Debridement Size (cm) - Depth 0 -Total Square Cm 0 -Wound/Ulcer Outcome Healed- Epithelialized #3 RIGHT FOOT PLANTAR -Time 16:27 -Correct Patient Yes -Correct Side, Site, Position Yes -Correct Procedure Yes -Procedure Performed Yes -Type of Procedure Debridement -Clinical Debridement Subcutaneous -Post Debridement Size (cm) - Length 0.3 -Post Debridement Size (cm) - Width 0.3 -Post Debridement Size (cm) - Depth 0.2 -Total Square Cm 0.09 -Wound/Ulcer Outcome Not Healed -Ulcer Cleansing Rinsed/ Irrigated with Saline -Foul Odor after Cleansing No -Bioengineered Tissue No -Bleeding Controlled with Pressure -Offloading Yes -Type of Offloading Surgical Shoe -Treatment Response Procedure Tolerated Well #1 LEFT PLANTAR -Time 16:27 -Correct Patient Yes -Correct Side, Site, Position Yes -Correct Procedure Yes -Procedure Performed Yes -Type of Procedure Debridement -Clinical Debridement Subcutaneous -Post Debridement Size (cm) - Length 4.8 -Post Debridement Size (cm) - Width 2.3 -Post Debridement Size (cm) - Depth 0.2 -Total Square Cm 11.04 -Wound/Ulcer Outcome Not Healed -Ulcer Cleansing Rinsed/ Irrigated with Saline -Foul Odor after Cleansing No -Bioengineered Tissue No -Bleeding Controlled with Pressure -Offloading Yes -Type of Offloading Surgical Shoe -Treatment Response Procedure Tolerated Well Pain Scale: 0-10 Numeric Is Patient Pain Free? Yes Wound debrided: plantar medial foot Laterality: Left Wound Grade/Stage: grade 3 Type of Debridement: Excisional debridement Anesthesia Used: 5% Lidocaine Gel Depth: in the subcutaneous layer Percentage of wound debrided: 100 Instrument Used: #15 blade Tissue Removed: fibrous, devitalized subcutaneous, biofilm, slough Severity: Fat Layer Exposed Amount of bleeding with debridement: Mild Bleeding Controlled with: Pressure Patient tolerated procedure well - Additional Wound Wound debrided: plantar metatarsal head Laterality: Right Wound Grade/Stage: grade 3 Type of Debridement: Excisional debridement Anesthesia Used: 5% Lidocaine Gel Depth: in the subcutaneous layer Percentage of wound debrided: 100 Instrument Used: #15 blade Tissue Removed: fibrous, devitalized subcutaneous, biofilm, slough Severity: Fat Layer Exposed Amount of bleeding with debridement: Mild Bleeding Controlled with: Pressure Patient tolerated procedure: Patient tolerated procedure well - Additional Wound Wound debrided: dorsal foot Laterality: Right Wound Grade/Stage: grade 1 Type of Debridement: Excisional debridement Anesthesia Used: 5% Lidocaine Gel Depth: in the subcutaneous layer Percentage of wound debrided: 100 Instrument Used: #15 blade Tissue Removed: fibrous, devitalized subcutaneous, biofilm, slough Severity: Fat Layer Exposed Amount of bleeding with debridement: Mild Bleeding Controlled with: Pressure Patient tolerated procedure: Patient tolerated procedure well Assessment/Plan Active Problems (Last Reviewed 08/02/18 @ 14:19 by Jocelyn Barlow) Malnutrition (Chronic) Delayed wound healing (Chronic) Ulcer of right foot with fat layer exposed (Chronic) Chronic ulcer of left foot with fat layer exposed (Chronic) Type 2 diabetes mellitus with diabetic polyneuropathy (Chronic) Assessment: see above diagnoses Plan: I reviewed and discussed her care plan today. Debridement was performed today as noted in the clinical panel. A dressing consisting of fibricol was applied. To change daily at home as advised. No additional antibiotics are recommended at this time. Her intraoperative microbiology and pathology results were reviewed. It is noted that no acute osteomyelitis was confirmed with the clearance fragment pathology specimen. There is additionally no bacterial growth noted in the clearance fragment. The bacterial growth identified in the resected third metatarsal head was adequately covered by Augmentin. To continue to follow-up for medical management with PCP and endocrinology. She has started hyperbaric oxygen therapy sessions and this is going well so far. The patient was educated on the importance of diet on wound healing and instructed to increase protein and vitamin C intake. To use assistive devices. To continue follow-up with nutrition services. I recommend more aggressive offloading. She is having difficulty using assistive devices and wheelchair which is compromising her care plan. To continue with bilateral forefoot offloading wedge surgical shoes with use of assistive device and continued reduced walking activity. Lack of compliance is compromising her care plan and delaying healing. She understands this. . Her most recent noninvasive vascular studies were reviewed from April 2018 with bilateral ankle-brachial indices 1.23. Her results demonstrated normal arterial perfusion. Her venous duplex Doppler studies with reflux evaluation were also reviewed and the results were discussed. 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 I do recommend future vascular surgeon referral to see if intervention may be completed. She will consider venous intervention. To follow-up with the wound healing center in 1 week. Answered her questions.
[2018-09-21 11:20] LABS: Bedside Glucose 142 mg/dL (70-110)
[2018-09-21 13:46] LABS: Bedside Glucose 155 mg/dL (70-110)
[2018-09-21 13:47] VITALS: BP 123/72; BP 148/91; PULSE 100; PULSE 90; RESP 16; RESP 18; TEMP 36.3; TEMP 36.6
--- NOTE | 2018-09-21 15:52 | PCM.HBO.PN ---
History of Present Illness Date of Service: 09/21/18 Presenting Chief Complaint: Left foot ulcer. Right foot ulcers DON COTTO is a 28 year old currently undergoing hyperbaric oxygen therapy for diabetic left foot ulceration,Camacho Grade 3 Progress: Today's session represents the 7th such session of hyperbaric oxygen therapy. 40 such sessions are planned. Today's session was well tolerated. Tolerance of hyperbaric oxygen therapy: Hyperbaric oxygen therapy was administered as per the facility protocol. The patient tolerated hyperbaric oxygen therapy well, without complaints or complications. Upon emergence from the hyperbaric chamber, the patient's vital signs remained stable. The patient was discharged in good condition. Past Medical History Chronic Problems (Last Reviewed 08/02/18 @ 14:19 by Jocelyn Barlow) Dehiscence of closure of subcutaneous tissue (Chronic) Hallux limitus of right foot (Chronic) Abscess of right foot (Chronic) Diabetes mellitus type 2, uncontrolled, with complications (Chronic) Venous insufficiency (Chronic) Hammer toe of right foot (Chronic) Hammer toe of left foot (Chronic) Pre-ulcerative corn or callous (Chronic) Malnutrition (Chronic) Deformity of metatarsal (Chronic) Delayed wound healing (Chronic) Diabetic foot ulcer (Chronic) Ulcer of right foot with fat layer exposed (Chronic) Chronic ulcer of left foot with fat layer exposed (Chronic) Endometriosis (Chronic) Diabetes (Chronic) 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) Ulcer of right foot with necrosis of muscle (Chronic) Obesity (BMI 30.0-34.9) (Chronic) Diabetes mellitus, type II (Chronic) Allergies/Adverse Reactions: Allergies clindamycin Allergy (Verified 08/15/18 12:04) Hives vancomycin Allergy (Verified 08/15/18 12:04) Hives/makes my heart race Home Medications: Ambulatory Orders Medication Instructions Recorded Cholecalciferol (Vitamin D3) 2,000 unit PO DAILY 03/10/18 [Vitamin D3] insulin glargine (U-100) 100 68 unit SUBCUT QHS #15 ml 08/02/18 unit/mL (3 mL) subcutaneous pen insulin lispro (U- 100) 100 14 unit SC TID #15 ml 08/02/18 unit/mL subcutaneous pen Maternal Family History: Family History (Last Reviewed 08/02/18 @ 14:19 by Jocelyn Barlow) Grandfather Diabetes Leukemia Grandmother Diabetes Mother Diabetes Hypertension Father Prostate cancer Grandfather Myocardial infarction Family History: - - Patient notes a maternal family history of diabetes. Paternal Family History: Family History (Last Reviewed 08/02/18 @ 14:19 by Jocelyn Barlow) Grandfather Diabetes Leukemia Grandmother Diabetes Mother Diabetes Hypertension Father Prostate cancer Grandfather Myocardial infarction Family History: - - Patient notes a paternal family history of prostate cancer, hypertension and diabetes. Smoking Status: Never smoker Physical Exam Vital Signs Temp Pulse Resp BP 97.8 F 100 18 123/72 H 09/21/18 13:47 09/21/18 13:47 09/21/18 13:47 09/21/18 13:47 General: Alert, Oriented x3, Cooperative, No apparent distress HEENT: Atraumatic, TM's Clear Lungs: Clear to auscultation, Normal air movement Cardiovascular: Regular rate, Regular Rhythm Psych/Mental Status: Normal Affect, Appropriate, Alert and oriented to time, place, person, mood and affect Assessment/Plan Active Problems (Last Reviewed 08/02/18 @ 14:19 by Jocelyn Barlow) Malnutrition (Chronic) Delayed wound healing (Chronic) Ulcer of right foot with fat layer exposed (Chronic) Chronic ulcer of left foot with fat layer exposed (Chronic) Type 2 diabetes mellitus with diabetic polyneuropathy (Chronic) Patient tolerated hyperbaric oxygen therapy well, which will be continued as per the patient's medical plan.
[2018-09-22 13:50] LABS: Bedside Glucose 133 mg/dL (70-110)
[2018-09-22 16:46] LABS: Bedside Glucose 89 mg/dL (70-110)
[2018-09-22 16:47] VITALS: BP 140/78; BP 162/93; PULSE 100; PULSE 99; RESP 16; TEMP 35.8; TEMP 36.8
--- NOTE | 2018-09-22 18:45 | PCM.HBO.PN ---
History of Present Illness Date of Service: 09/22/18 Presenting Chief Complaint: Left foot ulcer. Right foot ulcers DON COTTO is a 28 year old currently undergoing hyperbaric oxygen therapy for diabetic left foot ulceration,Camacho Grade 3 Progress: Today's session represents the 8th such session of hyperbaric oxygen therapy. 40 such sessions are planned. Today's session was well tolerated. Tolerance of hyperbaric oxygen therapy: Hyperbaric oxygen therapy was administered as per the facility protocol for 90 minutes at 2.0 SANA of 100% oxygen. The patient tolerated hyperbaric oxygen therapy well, without complaints or complications. Upon emergence from the hyperbaric chamber, the patient's vital signs remained stable but her blood sugar was low at 62. She was given orange juice x 2, cookies and 2 protein shakes which eventually brought her sugar to 89 after 30 minutes. The patient was discharged in good condition. She was again advised to call her dentist to be seen for tooth pain to r/o airtrapping and possible barotrauma. She agreed to schedule to see her. Past Medical History Chronic Problems (Last Reviewed 08/02/18 @ 14:19 by Jocelyn Barlow) Dehiscence of closure of subcutaneous tissue (Chronic) Hallux limitus of right foot (Chronic) Abscess of right foot (Chronic) Diabetes mellitus type 2, uncontrolled, with complications (Chronic) Venous insufficiency (Chronic) Hammer toe of right foot (Chronic) Hammer toe of left foot (Chronic) Pre-ulcerative corn or callous (Chronic) Malnutrition (Chronic) Deformity of metatarsal (Chronic) Delayed wound healing (Chronic) Diabetic foot ulcer (Chronic) Ulcer of right foot with fat layer exposed (Chronic) Chronic ulcer of left foot with fat layer exposed (Chronic) Endometriosis (Chronic) Diabetes (Chronic) 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) Ulcer of right foot with necrosis of muscle (Chronic) Obesity (BMI 30.0-34.9) (Chronic) Diabetes mellitus, type II (Chronic) Allergies/Adverse Reactions: Allergies clindamycin Allergy (Verified 08/15/18 12:04) Hives vancomycin Allergy (Verified 08/15/18 12:04) Hives/makes my heart race Home Medications: Ambulatory Orders Medication Instructions Recorded Cholecalciferol (Vitamin D3) 2,000 unit PO DAILY 03/10/18 [Vitamin D3] insulin glargine (U-100) 100 68 unit SUBCUT QHS #15 ml 08/02/18 unit/mL (3 mL) subcutaneous pen insulin lispro (U- 100) 100 14 unit SC TID #15 ml 08/02/18 unit/mL subcutaneous pen Maternal Family History: Family History (Last Reviewed 08/02/18 @ 14:19 by Jocelyn Barlow) Grandfather Diabetes Leukemia Grandmother Diabetes Mother Diabetes Hypertension Father Prostate cancer Grandfather Myocardial infarction Family History: - - Patient notes a maternal family history of diabetes. Paternal Family History: Family History (Last Reviewed 08/02/18 @ 14:19 by Jocelyn Barlow) Grandfather Diabetes Leukemia Grandmother Diabetes Mother Diabetes Hypertension Father Prostate cancer Grandfather Myocardial infarction Family History: - - Patient notes a paternal family history of prostate cancer, hypertension and diabetes. Smoking Status: Never smoker Physical Exam Vital Signs Temp Pulse Resp BP 98.2 F 100 16 140/78 H 09/22/18 16:47 09/22/18 16:47 09/22/18 16:47 09/22/18 16:47 General: Alert, Oriented x3, Cooperative, No apparent distress Psych/Mental Status: Normal Affect, Appropriate Assessment/Plan Active Problems (Last Reviewed 08/02/18 @ 14:19 by Jocelyn Barlow) Malnutrition (Chronic) Delayed wound healing (Chronic) Ulcer of right foot with fat layer exposed (Chronic) Chronic ulcer of left foot with fat layer exposed (Chronic) Type 2 diabetes mellitus with diabetic polyneuropathy (Chronic) Patient tolerated hyperbaric oxygen therapy well, which will be continued as per the patient's medical plan.
[2018-09-23 09:16] LABS: Bedside Glucose 63 mg/dL (70-110)
[2018-09-23 09:16] LABS: Bedside Glucose 66 mg/dL (70-110)
[2018-09-23 09:16] LABS: Bedside Glucose 64 mg/dL (70-110)
[2018-09-28 11:46] LABS: Bedside Glucose 120 mg/dL (70-110)
[2018-09-28 12:05] LABS: Bedside Glucose 131 mg/dL (70-110)
[2018-09-28 13:13] VITALS: BP 123/71; BP 127/69; PULSE 84; PULSE 99; RESP 16; RESP 18; TEMP 36.6; TEMP 36.7
--- NOTE | 2018-09-28 13:52 | PCM.HBO.PN ---
History of Present Illness Date of Service: 09/28/18 Presenting Chief Complaint: Left foot ulcer. Right foot ulcers DON COTTO is a 28 year old currently undergoing hyperbaric oxygen therapy for diabetic left foot ulceration,Camacho Grade 3 Progress: Today's session represents the 9th such session of hyperbaric oxygen therapy. 40 such sessions are planned. Today's session was well tolerated. Tolerance of hyperbaric oxygen therapy: Hyperbaric oxygen therapy was administered as per the facility protocol for 90 minutes at 2.0 SANA of 100% oxygen. The patient tolerated hyperbaric oxygen therapy well, without complaints or complications. Upon emergence from the hyperbaric chamber, the patient's vital signs remained stable. The patient was discharged in good condition. Past Medical History Chronic Problems (Last Reviewed 08/02/18 @ 14:19 by Jocelyn Barlow) Dehiscence of closure of subcutaneous tissue (Chronic) Hallux limitus of right foot (Chronic) Abscess of right foot (Chronic) Diabetes mellitus type 2, uncontrolled, with complications (Chronic) Venous insufficiency (Chronic) Hammer toe of right foot (Chronic) Hammer toe of left foot (Chronic) Pre-ulcerative corn or callous (Chronic) Malnutrition (Chronic) Deformity of metatarsal (Chronic) Delayed wound healing (Chronic) Diabetic foot ulcer (Chronic) Ulcer of right foot with fat layer exposed (Chronic) Chronic ulcer of left foot with fat layer exposed (Chronic) Endometriosis (Chronic) Diabetes (Chronic) 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) Ulcer of right foot with necrosis of muscle (Chronic) Obesity (BMI 30.0-34.9) (Chronic) Diabetes mellitus, type II (Chronic) Allergies/Adverse Reactions: Allergies clindamycin Allergy (Verified 08/15/18 12:04) Hives vancomycin Allergy (Verified 08/15/18 12:04) Hives/makes my heart race Home Medications: Ambulatory Orders Medication Instructions Recorded Cholecalciferol (Vitamin D3) 2,000 unit PO DAILY 03/10/18 [Vitamin D3] insulin glargine (U-100) 100 68 unit SUBCUT QHS #15 ml 08/02/18 unit/mL (3 mL) subcutaneous pen insulin lispro (U- 100) 100 14 unit SC TID #15 ml 08/02/18 unit/mL subcutaneous pen Maternal Family History: Family History (Last Reviewed 08/02/18 @ 14:19 by Jocelyn Barlow) Grandfather Diabetes Leukemia Grandmother Diabetes Mother Diabetes Hypertension Father Prostate cancer Grandfather Myocardial infarction Family History: - - Patient notes a maternal family history of diabetes. Paternal Family History: Family History (Last Reviewed 08/02/18 @ 14:19 by Jocelyn Barlow) Grandfather Diabetes Leukemia Grandmother Diabetes Mother Diabetes Hypertension Father Prostate cancer Grandfather Myocardial infarction Family History: - - Patient notes a paternal family history of prostate cancer, hypertension and diabetes. Smoking Status: Never smoker Physical Exam Vital Signs Temp Pulse Resp BP 98.1 F 99 18 123/71 H 09/28/18 13:13 09/28/18 13:13 09/28/18 13:13 09/28/18 13:13 General: Alert, Oriented x3, Cooperative, No apparent distress HEENT: Atraumatic, TM's Clear Lungs: Clear to auscultation, Normal air movement Cardiovascular: Regular rate, Regular Rhythm Psych/Mental Status: Normal Affect, Appropriate, Alert and oriented to time, place, person, mood and affect Assessment/Plan Active Problems (Last Reviewed 08/02/18 @ 14:19 by Jocelyn Barlow) Malnutrition (Chronic) Delayed wound healing (Chronic) Ulcer of right foot with fat layer exposed (Chronic) Chronic ulcer of left foot with fat layer exposed (Chronic) Type 2 diabetes mellitus with diabetic polyneuropathy (Chronic) Patient tolerated hyperbaric oxygen therapy well, which will be continued as per the patient's medical plan.
[2018-09-28 14:16] LABS: Bedside Glucose 182 mg/dL (70-110)
[2018-09-28 14:25] VITALS: BP 123/71; PULSE 99; RESP 18; TEMP 36.7; BMI 36.7
--- NOTE | 2018-09-28 22:48 | PN.PCM_ITS ---
(1) Chronic ulcer of left foot with fat layer exposed Status: Chronic Current Visit: Yes Code(s): L97.522 - Non-pressure chronic ulcer of other part of left foot with fat layer exposed (2) Ulcer of right foot with fat layer exposed Status: Resolved Current Visit: Yes Code(s): L97.512 - Non-pressure chronic ulcer of other part of right foot with fat layer exposed (3) Delayed wound healing Status: Chronic Current Visit: Yes Code(s): T14.8XXD - Other injury of unspecified body region, subsequent encounter (4) Malnutrition Status: Chronic Current Visit: Yes Code(s): E46 - Unspecified protein- calorie malnutrition (5) Type 2 diabetes mellitus with diabetic polyneuropathy Status: Chronic Current Visit: Yes Code(s): E11.42 - Type 2 diabetes mellitus with diabetic polyneuropathy Type of Wound Date of Service: 09/28/18 Chief Complaint: Left foot ulcer. Right foot ulcers have stopped draining History of Wound: This 28-year-old female with uncontrolled diabetes returns to clinic for follow-up of bilateral ulcers. She had surgical intervention on August 15, 2018 including right third metatarsal head resection with clearance fragment bone biopsy and debridement of bilateral plantar ulcers with application of advanced wound care products (amnio fill and epi cord). she denies subjective fever, chill, nausea, vomiting. She has been compliant with the dressing recommendations. she is no longer taking antibiotics. She does wear her forefoot offloading wide shoes. She started hyperbaric oxygen therapy sessions and this is going well so far. Progress of Wound: stable left foot ulcer. healed right foot ulcers x 2 - Physical Exam Vital Signs Temp Pulse Resp BP 98.1 F 99 18 123/71 H 09/28/18 14:25 09/28/18 14:25 09/28/18 14:25 09/28/18 14:25 General: Alert, Oriented x3, Cooperative HEENT: Atraumatic Extremities: No cyanosis, Capillary Refill Less than 3 Seconds, No Calf Tenderness - negative zeng bilateral, Diminished Peripheral Pulses, Edema - bilateral lower extremities, - - dorsal contraction of lesser digits with prominent metatarsal heads bilateral Skin: Ulcer/ Wound - no purulence, no erythema, no streaking, no infection or necrosis. atrophic adjacent skin with lack of hair, - - no interdigital mace ration noted bilateral Wound Measurements and Assessment WC - Nurse 1 - General Ulcer Measurement Start: 09/18/18 16:19 Freq: Status: Active Protocol: Activity Type Activity Date Activity User E-Sign Co-Sign Detail Recorded Client Recorded Date Recorded By Document 09/28/18 14:25 DL [id number] 09/28/18 14:34 DL 09/28/18 14:25 Wound Center Nurse 1 [Ulcer Assessment] 7-right dorsal foot -Current Size (cm) - Length 0.1 -Current Size (cm) - Width 0.1 -Current Size (cm) - Depth 0.1 -Total Square Cm 0.01 -Photo Taken No -Exudate Amt None Present -Wound Margin Thickened -Granulation Amt Large (67-100%) -Granulation Quality [place] -Necrosis Amt Small (1-33%) -Necrotic Tissue Type Adherent Slough -Structure Exposed N/A -Texture (Cheri-wound Skin Appearance) Scarring -Moisture (Cheri-wound Skin Appearance Dry/Scaly ) -Color (Cheri-wound Skin Appearance) No Abnormality -Temperature (Cheri-wound Skin No Abnormality Appearance) (Pt Warm) -Tenderness on Palpation (Cheri-wound No Skin Appearance) -Ulcer Cleansing Wound Cleanser -Foul Odor after Cleansing No -Anesthetic Used 5% Lidocaine Gel #3 RIGHT FOOT PLANTAR -Current Size (cm) - Length 0.1 -Current Size (cm) - Width 0.1 -Current Size (cm) - Depth 0.1 -Total Square Cm 0.01 -Photo Taken No -Exudate Amt None Present -Wound Margin Thickened -Granulation Amt Large (67-100%) -Granulation Quality Pale [place] -Necrosis Amt None Present (0 %) -Structure Exposed N/A -Texture (Cheri-wound Skin Appearance) Callus -Moisture (Cheri-wound Skin Appearance Dry/Scaly ) -Color (Cheri-wound Skin Appearance) No Abnormality -Temperature (Cheri-wound Skin No Abnormality Appearance) (Pt Warm) -Tenderness on Palpation (Cheri-wound No Skin Appearance) -Ulcer Cleansing Wound Cleanser -Foul Odor after Cleansing No -Anesthetic Used 5% Lidocaine Gel #1 LEFT PLANTAR -Current Size (cm) - Length 4.8 -Current Size (cm) - Width 2.4 -Current Size (cm) - Depth 0.4 -Total Square Cm 11.52 -Photo Taken No -Exudate Amt Small -Exudate Type Serosanguineous -Wound Margin Thickened -Granulation Amt Large (67-100%) -Granulation Quality [place] Red -Necrosis Amt Small (1-33%) -Necrotic Tissue Type Adherent Slough -Structure Exposed N/A -Texture (Cheri-wound Skin Appearance) Callus Scarring -Moisture (Cheri-wound Skin Appearance Dry/Scaly ) -Color (Cheri-wound Skin Appearance) No Abnormality -Temperature (Cheri-wound Skin No Abnormality Appearance) (Pt Warm) -Tenderness on Palpation (Cheri-wound No Skin Appearance) -Ulcer Cleansing Wound Cleanser -Foul Odor after Cleansing No -Anesthetic Used 4% Lidocaine Solution [Edema Assessment] -Right Calf (cm) 42 -Right Ankle (cm) 23 -Left Calf (cm) 40.5 -Left Ankle (cm) 23.7 BREANA - Nurse 2 - General Ulcer CM Notes Start: 09/18/18 16:19 Freq: Status: Active Protocol: Activity Type Activity Date Activity User E-Sign Co-Sign Detail Recorded Client Recorded Date Recorded By Document 09/28/18 15:04 AN [id number] 09/28/18 15:08 AN 09/28/18 15:04 Wound Center Nurse 2 [Procedure/Treatment] #1 LEFT PLANTAR -Time 15:07 -Correct Patient Yes -Correct Side, Site, Position Yes -Correct Procedure Yes -Procedure Performed Yes -Type of Procedure Debridement -Clinical Debridement Subcutaneous -Post Debridement Size (cm) - Length 4.9 -Post Debridement Size (cm) - Width 2.5 -Post Debridement Size (cm) - Depth 0.4 -Total Square Cm 12.25 -Wound/Ulcer Outcome Not Healed -Ulcer Cleansing Rinsed/ Irrigated with Saline -Foul Odor after Cleansing No -Bioengineered Tissue No -Bleeding Controlled with Pressure -Offloading Yes -Type of Offloading Surgical Shoe -Treatment Response Procedure Tolerated Well [See Physician Procedure note for Specifics] Pain Scale: 0-10 Numeric [Pain] -Is Patient Pain Free? Yes Musculoskeletal: No Tenderness to Palpation of Joints or Extremities, Muscle Wasting Neurological: - - lack of epicritic sensation via light touch consistent with neuropathy bilateral lower extremities Psych/Mental Status: Normal Affect, Appropriate Debridement Note Post-Debridement Measurements/Treatment WC - Nurse 2 - General Ulcer CM Notes Start: 09/18/18 16:19 Freq: Status: Active Protocol: Activity Type Activity Date Activity User E-Sign Co-Sign Detail Recorded Client Recorded Date Recorded By Document 09/20/18 16:26 [id number] 09/20/18 16:30 Document 09/28/18 15:04 AN [id number] 09/28/18 15:08 AN 09/20/18 09/28/18 16:26 15:04 Wound Center Nurse 2 7-right dorsal foot -Time 16:28 -Correct Patient Yes -Correct Side, Site, Position Yes -Correct Procedure Yes -Procedure Performed Yes -Type of Procedure Debridement -Clinical Debridement Subcutaneous -Post Debridement Size (cm) - Length 0.8 -Post Debridement Size (cm) - Width 0.3 -Post Debridement Size (cm) - Depth 0.2 -Total Square Cm 0.24 -Wound/Ulcer Outcome Not Healed -Ulcer Cleansing Rinsed/ Irrigated with Saline -Foul Odor after Cleansing No -Bioengineered Tissue No -Bleeding Controlled with Pressure -Offloading Yes -Type of Offloading Surgical Shoe -Treatment Response Procedure Tolerated Well #4 RIGHT GREAT TOE MEDIAL -Correct Patient No -Correct Side, Site, Position No -Correct Procedure No -Procedure Performed No -Post Debridement Size (cm) - Length 0 -Post Debridement Size (cm) - Width 0 -Post Debridement Size (cm) - Depth 0 -Total Square Cm 0 -Wound/Ulcer Outcome Healed- Epithelialized #3 RIGHT FOOT PLANTAR -Time 16:27 -Correct Patient Yes -Correct Side, Site, Position Yes -Correct Procedure Yes -Procedure Performed Yes -Type of Procedure Debridement -Clinical Debridement Subcutaneous -Post Debridement Size (cm) - Length 0.3 -Post Debridement Size (cm) - Width 0.3 -Post Debridement Size (cm) - Depth 0.2 -Total Square Cm 0.09 -Wound/Ulcer Outcome Not Healed -Ulcer Cleansing Rinsed/ Irrigated with Saline -Foul Odor after Cleansing No -Bioengineered Tissue No -Bleeding Controlled with Pressure -Offloading Yes -Type of Offloading Surgical Shoe -Treatment Response Procedure Tolerated Well #1 LEFT PLANTAR -Time 16:27 15:07 -Correct Patient Yes Yes -Correct Side, Site, Position Yes Yes -Correct Procedure Yes Yes -Procedure Performed Yes Yes -Type of Procedure Debridement Debridement -Clinical Debridement Subcutaneous Subcutaneous -Post Debridement Size (cm) - Length 4.8 4.9 -Post Debridement Size (cm) - Width 2.3 2.5 -Post Debridement Size (cm) - Depth 0.2 0.4 -Total Square Cm 11.04 12.25 -Wound/Ulcer Outcome Not Healed Not Healed -Ulcer Cleansing Rinsed/ Rinsed/ Irrigated with Irrigated with Saline Saline -Foul Odor after Cleansing No No -Bioengineered Tissue No No -Bleeding Controlled with Pressure Pressure -Offloading Yes Yes -Type of Offloading Surgical Shoe Surgical Shoe -Treatment Response Procedure Procedure Tolerated Well Tolerated Well Pain Scale: 0-10 Numeric Is Patient Pain Free? Yes Yes Wound debrided: plantar foot Laterality: Left Wound Grade/Stage: grade 3 Type of Debridement: Excisional debridement Anesthesia Used: 5% Lidocaine Gel Depth: in the subcutaneous layer Percentage of wound debrided: 100 Instrument Used: #15 blade Tissue Removed: fibrous, devitalized subcutaneous, biofilm, slough Severity: Fat Layer Exposed Amount of bleeding with debridement: Mild Bleeding Controlled with: Pressure Patient tolerated procedure well Assessment/Plan Active Problems (Last Reviewed 08/02/18 @ 14:19 by Jocelyn Barlow) Malnutrition (Chronic) Delayed wound healing (Chronic) Chronic ulcer of left foot with fat layer exposed (Chronic) Type 2 diabetes mellitus with diabetic polyneuropathy (Chronic) Assessment: see above diagnoses Plan: I reviewed and discussed her care plan today. All of her ulcers to the right foot are healed today with full epithelialization. Debridement was performed today as noted in the clinical panel to the left foot. A dressing consisting of fibricol was applied. To change daily at home as advised to left foot. No dressing required to right foot. To keep right foot moisturized and to check daily for reopening. To continue to offload the right foot to allow the skin to remodel prior to transfer to extra depth diabetic shoes. No local infection noted at this time; no antibiotics are recommended at this time. Her intraoperative microbiology and pathology results were reviewed. It is noted that no acute osteomyelitis was confirmed with the clearance fragment pathology specimen. There is additionally no bacterial growth noted in the clearance fragment. The bacterial growth identified in the resected third metatarsal head was adequately covered by Augmentin. To continue to follow-up for medical management with PCP and endocrinology. She has started hyperbaric oxygen therapy sessions and this is going well so far. The patient was educated on the importance of diet on wound healing and instructed to increase protein and vitamin C intake. To use assistive devices. To continue follow-up with nutrition services. I recommend more aggressive offloading. She is having difficulty using assistive devices and wheelchair which is compromising her care plan. To continue with bilateral forefoot offloading wedge surgical shoes with use of assistive device and continued reduced walking activity. Lack of compliance is compromising her care plan and delaying healing. She understands this. . Her most recent noninvasive vascular studies were reviewed from April 2018 with bilateral ankle-brachial indices 1.23. Her results demonstrated normal arterial perfusion. Her venous duplex Doppler studies with reflux evaluation were also reviewed and the results were discussed. 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 I do recommend future vascular surgeon referral to see if intervention may be completed. She will consider venous intervention. To follow-up with the wound healing center in 1 week. Answered her questions.
[2018-09-29 14:00] LABS: Bedside Glucose 148 mg/dL (70-110)
[2018-09-29 16:26] LABS: Bedside Glucose 155 mg/dL (70-110)
[2018-09-29 16:48] VITALS: BP 128/84; BP 129/74; PULSE 112; PULSE 89; RESP 18; TEMP 36.2; TEMP 36.4
--- NOTE | 2018-09-29 16:51 | PCM.HBO.PN ---
History of Present Illness Date of Service: 09/29/18 Presenting Chief Complaint: Left foot ulcer. Right foot ulcers have stopped draining DON COTTO is a 28 year old currently undergoing hyperbaric oxygen therapy for diabetic left foot ulceration,Camacho Grade 3 Progress: Today's session represents the 10th such session of hyperbaric oxygen therapy. 40 such sessions are planned. Today's session was well tolerated. Tolerance of hyperbaric oxygen therapy: Hyperbaric oxygen therapy was administered as per the facility protocol for 90 minutes at 2.0 SANA of 100% oxygen. The patient tolerated hyperbaric oxygen therapy well, without complaints or complications. Upon emergence from the hyperbaric chamber, the patient's vital signs remained stable. The patient was discharged in good condition. Blood sugars as noted in nursing notes 143 prior and 155 post treatment. Past Medical History Chronic Problems (Last Reviewed 08/02/18 @ 14:19 by Jocelyn Barlow) Dehiscence of closure of subcutaneous tissue (Chronic) Hallux limitus of right foot (Chronic) Abscess of right foot (Chronic) Diabetes mellitus type 2, uncontrolled, with complications (Chronic) Venous insufficiency (Chronic) Hammer toe of right foot (Chronic) Hammer toe of left foot (Chronic) Pre-ulcerative corn or callous (Chronic) Malnutrition (Chronic) Deformity of metatarsal (Chronic) Delayed wound healing (Chronic) Diabetic foot ulcer (Chronic) Chronic ulcer of left foot with fat layer exposed (Chronic) Endometriosis (Chronic) Diabetes (Chronic) 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) Ulcer of right foot with necrosis of muscle (Chronic) Obesity (BMI 30.0-34.9) (Chronic) Diabetes mellitus, type II (Chronic) Allergies/Adverse Reactions: Allergies clindamycin Allergy (Verified 08/15/18 12:04) Hives vancomycin Allergy (Verified 08/15/18 12:04) Hives/makes my heart race Home Medications: Ambulatory Orders Medication Instructions Recorded Cholecalciferol (Vitamin D3) 2,000 unit PO DAILY 03/10/18 [Vitamin D3] insulin glargine (U-100) 100 68 unit SUBCUT QHS #15 ml 08/02/18 unit/mL (3 mL) subcutaneous pen insulin lispro (U- 100) 100 14 unit SC TID #15 ml 08/02/18 unit/mL subcutaneous pen Maternal Family History: Family History (Last Reviewed 08/02/18 @ 14:19 by Jocelyn Barlow) Grandfather Diabetes Leukemia Grandmother Diabetes Mother Diabetes Hypertension Father Prostate cancer Grandfather Myocardial infarction Family History: - - Patient notes a maternal family history of diabetes. Paternal Family History: Family History (Last Reviewed 08/02/18 @ 14:19 by Jocelyn Barlow) Grandfather Diabetes Leukemia Grandmother Diabetes Mother Diabetes Hypertension Father Prostate cancer Grandfather Myocardial infarction Family History: - - Patient notes a paternal family history of prostate cancer, hypertension and diabetes. Smoking Status: Never smoker Physical Exam Vital Signs Temp Pulse Resp BP 98.1 F 99 18 123/71 H 09/28/18 14:25 09/28/18 14:25 09/28/18 14:25 09/28/18 14:25 General: Alert, Oriented x3, Cooperative, No apparent distress Psych/Mental Status: Normal Affect, Appropriate Assessment/Plan Active Problems (Last Reviewed 08/02/18 @ 14:19 by Jocelyn Barlow) Malnutrition (Chronic) Delayed wound healing (Chronic) Chronic ulcer of left foot with fat layer exposed (Chronic) Type 2 diabetes mellitus with diabetic polyneuropathy (Chronic) Patient tolerated hyperbaric oxygen therapy well, which will be continued as per the patient's medical plan.
[2018-10-03 10:16] LABS: Bedside Glucose 160 mg/dL (70-110)
[2018-10-03 10:37] VITALS: BP 115/77; BP 119/72; PULSE 108; PULSE 97; RESP 16; RESP 18; TEMP 36.3; TEMP 36.7
--- NOTE | 2018-10-03 12:17 | PCM.HBO.PN ---
History of Present Illness Date of Service: 10/03/18 Presenting Chief Complaint: Diabetic left foot ulceration, Camacho Grade 3 DON COTTO is a 28 year old currently undergoing hyperbaric oxygen therapy for diabetic left foot ulceration,Camacho Grade 3 Progress: Today's session represents the 11th such session of hyperbaric oxygen therapy. 40 such sessions are planned. Today's session was well tolerated. Tolerance of hyperbaric oxygen therapy: Hyperbaric oxygen therapy was administered as per the facility protocol for 90 minutes at 2.0 SANA of 100% oxygen. No air breaks were administered. The patient tolerated hyperbaric oxygen therapy well, without complaints or complications. Upon emergence from the hyperbaric chamber, the patient's vital signs remained stable. The patient was discharged in good condition. Blood sugars as noted in nursing notes 160 prior and 123 post-treatment. Past Medical History Chronic Problems (Last Reviewed 08/02/18 @ 14:19 by Jocelyn Barlow) Dehiscence of closure of subcutaneous tissue (Chronic) Hallux limitus of right foot (Chronic) Abscess of right foot (Chronic) Diabetes mellitus type 2, uncontrolled, with complications (Chronic) Venous insufficiency (Chronic) Hammer toe of right foot (Chronic) Hammer toe of left foot (Chronic) Pre-ulcerative corn or callous (Chronic) Malnutrition (Chronic) Deformity of metatarsal (Chronic) Delayed wound healing (Chronic) Diabetic foot ulcer (Chronic) Chronic ulcer of left foot with fat layer exposed (Chronic) Endometriosis (Chronic) Diabetes (Chronic) 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) Ulcer of right foot with necrosis of muscle (Chronic) Obesity (BMI 30.0-34.9) (Chronic) Diabetes mellitus, type II (Chronic) Allergies/Adverse Reactions: Allergies clindamycin Allergy (Verified 08/15/18 12:04) Hives vancomycin Allergy (Verified 08/15/18 12:04) Hives/makes my heart race Home Medications: Ambulatory Orders Medication Instructions Recorded Cholecalciferol (Vitamin D3) 2,000 unit PO DAILY 03/10/18 [Vitamin D3] insulin glargine (U-100) 100 68 unit SUBCUT QHS #15 ml 08/02/18 unit/mL (3 mL) subcutaneous pen insulin lispro (U- 100) 100 14 unit SC TID #15 ml 08/02/18 unit/mL subcutaneous pen Maternal Family History: Family History (Last Reviewed 08/02/18 @ 14:19 by Jocelyn Barlow) Grandfather Diabetes Leukemia Grandmother Diabetes Mother Diabetes Hypertension Father Prostate cancer Grandfather Myocardial infarction Family History: - - Patient notes a maternal family history of diabetes. Paternal Family History: Family History (Last Reviewed 08/02/18 @ 14:19 by Jocelyn Barlow) Grandfather Diabetes Leukemia Grandmother Diabetes Mother Diabetes Hypertension Father Prostate cancer Grandfather Myocardial infarction Family History: - - Patient notes a paternal family history of prostate cancer, hypertension and diabetes. Smoking Status: Never smoker Physical Exam Vital Signs Temp Pulse Resp BP 98.1 F 108 H 18 119/72 10/03/18 10:37 10/03/18 10:37 10/03/18 10:37 10/03/18 10:37 General: Alert, Oriented x3, Cooperative, No apparent distress, Well developed, Well nourished HEENT: Atraumatic, PERRLA, EOMI, Normocephalic Lungs: Normal air movement Psych/Mental Status: Normal Affect, Appropriate, Alert and oriented to time, place, person, mood and affect Assessment/Plan Active Problems (Last Reviewed 08/02/18 @ 14:19 by Jocelyn Barlow) Malnutrition (Chronic) Delayed wound healing (Chronic) Chronic ulcer of left foot with fat layer exposed (Chronic) Type 2 diabetes mellitus with diabetic polyneuropathy (Chronic) The patient appears to be tolerating hyperbaric oxygen therapy well, which will be continued as per the patient's medical plan.
[2018-10-03 12:21] LABS: Bedside Glucose 123 mg/dL (70-110)
[2018-10-04 15:31] VITALS: BP 139/73; PULSE 106; RESP 18; TEMP 36.6; BMI 36.7
--- NOTE | 2018-10-04 16:37 | PCM.WC.PN ---
(1) Chronic ulcer of left foot with fat layer exposed Status: Chronic Current Visit: Yes Code(s): L97.522 - Non-pressure chronic ulcer of other part of left foot with fat layer exposed (2) Delayed wound healing Status: Chronic Current Visit: Yes Code(s): T14.8XXD - Other injury of unspecified body region, subsequent encounter (3) Malnutrition Status: Chronic Current Visit: Yes Code(s): E46 - Unspecified protein-calorie malnutrition (4) Type 2 diabetes mellitus with diabetic polyneuropathy Status: Chronic Current Visit: Yes Code(s): E11.42 - Type 2 diabetes mellitus with diabetic polyneuropathy Type of Wound Date of Service: 10/04/18 Chief Complaint: Diabetic left foot ulceration, Camacho Grade 3 History of Wound: This 28-year-old female with uncontrolled diabetes returns to clinic for follow-up chronic left foot ulcer. she denies subjective fever, chill, nausea, vomiting. She has been compliant with the dressing recommendations. she is no longer taking antibiotics. She does wear her forefoot offloading wide shoes. She started hyperbaric oxygen therapy sessions and this is going well so far. It is noted her right foot ulcer sites have healed and she continues to wear the offloading wedge shoe. Progress of Wound: stable left foot ulcer - Physical Exam Vital Signs Temp Pulse Resp BP 98 F 106 H 18 139/73 H 10/04/18 15:31 10/04/18 15:31 10/04/18 15:31 10/04/18 15:31 General: Alert, Oriented x3, Cooperative Extremities: No cyanosis, Capillary Refill Less than 3 Seconds, No Calf Tenderness - Negative Rockwell bilateral, Diminished Peripheral Pulses, Edema Skin: Ulcer/ Wound - No purulence, erythema, streaking, odor, or infection. There is no deep tissue exposure necrosis or maceration noted. The ulcer bed is granular, - - The skin is atrophic Wound Measurements and Assessment WC - Nurse 1 - General Ulcer Measurement Start: 09/18/18 16:19 Freq: Status: Active Protocol: Activity Type Activity Date Activity User E-Sign Co-Sign Detail Recorded Client Recorded Date Recorded By Document 10/04/18 15:31 DL [id number] 10/04/18 15:38 DL 10/04/18 15:31 Wound Center Nurse 1 [Ulcer Assessment] #1 LEFT PLANTAR -Current Size (cm) - Length 4.7 -Current Size (cm) - Width 2.5 -Current Size (cm) - Depth 0.4 -Total Square Cm 11.75 -Photo Taken No -Exudate Amt Small -Exudate Type Serosanguineous -Wound Margin Thickened -Granulation Amt Large (67-100%) -Granulation Quality Titanic Red -Necrosis Amt Small (1-33%) -Necrotic Tissue Type Adherent Slough -Structure Exposed N/A -Texture (Cheri-wound Skin Appearance) Callus Scarring -Moisture (Cheri-wound Skin Appearance Dry/Scaly ) -Color (Cheri-wound Skin Appearance) No Abnormality -Temperature (Cheri-wound Skin No Abnormality Appearance) (Pt Warm) -Tenderness on Palpation (Cheri-wound No Skin Appearance) -Ulcer Cleansing Wound Cleanser -Foul Odor after Cleansing No -Anesthetic Used 5% Lidocaine Gel WC - Nurse 2 - General Ulcer CM Notes Start: 09/18/18 16:19 Freq: Status: Active Protocol: Activity Type Activity Date Activity User E-Sign Co-Sign Detail Recorded Client Recorded Date Recorded By Document 10/04/18 15:49 DL [id number] 10/04/18 15:49 DL 10/04/18 15:49 Wound Center Nurse 2 [Procedure/Treatment] -Time 15:49 -Correct Patient Yes -Correct Side, Site, Position Yes -Correct Procedure Yes -Procedure Performed Yes -Type of Procedure Debridement -Clinical Debridement Subcutaneous -Post Debridement Size (cm) - Length 4.8 -Post Debridement Size (cm) - Width 2.5 -Post Debridement Size (cm) - Depth 0.4 -Total Square Cm 12.00 -Wound/Ulcer Outcome Not Healed -Ulcer Cleansing Rinsed/ Irrigated with Saline -Foul Odor after Cleansing No -Bioengineered Tissue No -Bleeding Controlled with Pressure -Offloading Yes -Type of Offloading Surgical Shoe -Treatment Response Procedure Tolerated Well [See Physician Procedure note for Specifics] Pain Scale: 0-10 Numeric [Pain] -Is Patient Pain Free? Yes Musculoskeletal: No Tenderness to Palpation of Joints or Extremities, Muscle Wasting, - - Intrinsic minus foot. Dorsal contraction of lesser toes with prominent metatarsal heads bilateral Neurological: - - Lack of normal epicritic sensation to light touch noted Psych/Mental Status: Normal Affect, Appropriate Debridement Note Post-Debridement Measurements/Treatment WC - Nurse 2 - General Ulcer CM Notes Start: 09/18/18 16:19 Freq: Status: Active Protocol: Activity Type Activity Date Activity User E-Sign Co-Sign Detail Recorded Client Recorded Date Recorded By Document 09/20/18 16:26 JF [id number] 09/20/18 16:30 JF Document 09/28/18 15:04 AN [id number] 09/28/18 15:08 AN Document 10/04/18 15:49 DL [id number] 10/04/18 15:49 DL 09/20/18 09/28/18 10/04/18 16:26 15:04 15:49 Wound Center Nurse 2 7-right dorsal foot -Time 16:28 -Correct Patient Yes -Correct Side, Site, Position Yes -Correct Procedure Yes -Procedure Performed Yes -Type of Procedure Debridement -Clinical Debridement Subcutaneous -Post Debridement Size (cm) - Length 0.8 -Post Debridement Size (cm) - Width 0.3 -Post Debridement Size (cm) - Depth 0.2 -Total Square Cm 0.24 -Wound/Ulcer Outcome Not Healed -Ulcer Cleansing Rinsed/ Irrigated with Saline -Foul Odor after Cleansing No -Bioengineered Tissue No -Bleeding Controlled with Pressure -Offloading Yes -Type of Offloading Surgical Shoe -Treatment Response Procedure Tolerated Well #4 RIGHT GREAT TOE MEDIAL -Correct Patient No -Correct Side, Site, Position No -Correct Procedure No -Procedure Performed No -Post Debridement Size (cm) - Length 0 -Post Debridement Size (cm) - Width 0 -Post Debridement Size (cm) - Depth 0 -Total Square Cm 0 -Wound/Ulcer Outcome Healed- Epithelialized #3 RIGHT FOOT PLANTAR -Time 16:27 -Correct Patient Yes -Correct Side, Site, Position Yes -Correct Procedure Yes -Procedure Performed Yes -Type of Procedure Debridement -Clinical Debridement Subcutaneous -Post Debridement Size (cm) - Length 0.3 -Post Debridement Size (cm) - Width 0.3 -Post Debridement Size (cm) - Depth 0.2 -Total Square Cm 0.09 -Wound/Ulcer Outcome Not Healed -Ulcer Cleansing Rinsed/ Irrigated with Saline -Foul Odor after Cleansing No -Bioengineered Tissue No -Bleeding Controlled with Pressure -Offloading Yes -Type of Offloading Surgical Shoe -Treatment Response Procedure Tolerated Well #1 LEFT PLANTAR -Time 16:27 15:07 15:49 -Correct Patient Yes Yes Yes -Correct Side, Site, Position Yes Yes Yes -Correct Procedure Yes Yes Yes -Procedure Performed Yes Yes Yes -Type of Procedure Debridement Debridement Debridement -Clinical Debridement Subcutaneous Subcutaneous Subcutaneous -Post Debridement Size (cm) - Length 4.8 4.9 4.8 -Post Debridement Size (cm) - Width 2.3 2.5 2.5 -Post Debridement Size (cm) - Depth 0.2 0.4 0.4 -Total Square Cm 11.04 12.25 12.00 -Wound/Ulcer Outcome Not Healed Not Healed Not Healed -Ulcer Cleansing Rinsed/ Rinsed/ Rinsed/ Irrigated with Irrigated with Irrigated with Saline Saline Saline -Foul Odor after Cleansing No No No -Bioengineered Tissue No No No -Bleeding Controlled with Pressure Pressure Pressure -Offloading Yes Yes Yes -Type of Offloading Surgical Shoe Surgical Shoe Surgical Shoe -Treatment Response Procedure Procedure Procedure Tolerated Well Tolerated Well Tolerated Well Pain Scale: 0-10 Numeric Is Patient Pain Free? Yes Yes Yes Wound debrided: plantar foot Laterality: Left Wound Grade/Stage: grade 3 Type of Debridement: Excisional debridement Anesthesia Used: 5% Lidocaine Gel Depth: in the subcutaneous layer Percentage of wound debrided: 100 Instrument Used: #15 blade Tissue Removed: fibrous, devitalized subcutaneous, biofilm, slough Severity: Fat Layer Exposed Amount of bleeding with debridement: Mild Bleeding Controlled with: Pressure Patient tolerated procedure well Assessment/Plan Active Problems (Last Reviewed 08/02/18 @ 14:19 by Jocelyn Barlow) Malnutrition (Chronic) Delayed wound healing (Chronic) Chronic ulcer of left foot with fat layer exposed (Chronic) Type 2 diabetes mellitus with diabetic polyneuropathy (Chronic) Assessment: see above diagnoses Plan: I reviewed and discussed her care plan today. All of her ulcers to the right foot are healed today with full epithelialization. Debridement was performed today as noted in the clinical panel to the left foot. A dressing consisting of fibricol was applied. To change daily at home as advised to left foot. No dressing required to right foot. To keep right foot moisturized and to check daily for reopening. This is not noted at this time. To continue to offload the right foot to allow the skin to remodel prior to transfer to extra depth diabetic shoes. No local infection noted at this time; no antibiotics are recommended at this time. Her intraoperative microbiology and pathology results were reviewed. It is noted that no acute osteomyelitis was confirmed with the clearance fragment pathology specimen. There is additionally no bacterial growth noted in the clearance fragment. The bacterial growth identified in the resected third metatarsal head was adequately covered by Augmentin. To continue to follow-up for medical management with PCP and endocrinology. She has started hyperbaric oxygen therapy sessions and this is going well so far. The patient was educated on the importance of diet on wound healing and instructed to increase protein and vitamin C intake. To use assistive devices. To continue follow-up with nutrition services. Her most recent noninvasive vascular studies were reviewed from April 2018 with bilateral ankle-brachial indices 1.23. Her results demonstrated normal arterial perfusion. Her venous duplex Doppler studies with reflux evaluation were also reviewed and the results were discussed. 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 I do recommend future vascular surgeon referral to see if intervention may be completed. She will consider venous intervention. To follow-up with the wound healing center in 1 week. Answered her questions.
[2018-10-05 09:35] LABS: Bedside Glucose 142 mg/dL (70-110)
[2018-10-05 09:39] VITALS: BP 122/82; BP 140/76; PULSE 108; PULSE 98; RESP 16; RESP 18; TEMP 36.6; TEMP 36.7
[2018-10-05 11:31] LABS: Bedside Glucose 154 mg/dL (70-110)
--- NOTE | 2018-10-05 12:18 | HBO.PN.PCM_ITS ---
History of Present Illness Presenting Chief Complaint: Diabetic left foot ulceration, Camacho Grade 3 DON COTTO is a 28 year old currently undergoing hyperbaric oxygen therapy for diabetic left foot ulceration,Camacho Grade 3 Progress: Today's session represents the 12th such session of hyperbaric oxygen therapy. 40 such sessions are planned. Today's session was well tolerated. Tolerance of hyperbaric oxygen therapy: Hyperbaric oxygen therapy was administered as per the facility protocol for 90 minutes at 2.0 SANA of 100% oxy gen. No air breaks were administered. The patient tolerated hyperbaric oxygen therapy well, without complaints or complications. Upon emergence from the hyperbaric chamber, the patient's vital signs remained stable. The patient was discharged in good condition. Past Medical History Chronic Problems (Last Reviewed 08/02/18 @ 14:19 by Jocelyn Barlow) Dehiscence of closure of subcutaneous tissue (Chronic) Hallux limitus of right foot (Chronic) Abscess of right foot (Chronic) Diabetes mellitus type 2, uncontrolled, with complications (Chronic) Venous insufficiency (Chronic) Hammer toe of right foot (Chronic) Hammer toe of left foot (Chronic) Pre-ulcerative corn or callous (Chronic) Malnutrition (Chronic) Deformity of metatarsal (Chronic) Delayed wound healing (Chronic) Diabetic foot ulcer (Chronic) Chronic ulcer of left foot with fat layer exposed (Chronic) Endometriosis (Chronic) Diabetes (Chronic) 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) Ulcer of right foot with necrosis of muscle (Chronic) Obesity (BMI 30.0-34.9) (Chronic) Diabetes mellitus, type II (Chronic) Allergies/Adverse Reactions: Allergies clindamycin Allergy (Verified 08/15/18 12:04) Hives vancomycin Allergy (Verified 08/15/18 12:04) Hives/makes my heart race Home Medications: Ambulatory Orders Medication Instructions Recorded Cholecalciferol (Vitamin D3) 2,000 unit PO DAILY 03/10/18 [Vitamin D3] insulin glargine (U-100) 100 68 unit SUBCUT QHS #15 ml 08/02/18 unit/mL (3 mL) subcutaneous pen insulin lispro (U- 100) 100 14 unit SC TID #15 ml 08/02/18 unit/mL subcutaneous pen Maternal Family History: Family History (Last Reviewed 08/02/18 @ 14:19 by Jocelyn Barlow) Grandfather Diabetes Leukemia Grandmother Diabetes Mother Diabetes Hypertension Father Prostate cancer Grandfather Myocardial infarction Family History: - - Patient notes a maternal family history of diabetes. Paternal Family History: Family History (Last Reviewed 08/02/18 @ 14:19 by Jocelyn Barlow) Grandfather Diabetes Leukemia Grandmother Diabetes Mother Diabetes Hypertension Father Prostate cancer Grandfather Myocardial infarction Family History: - - Patient notes a paternal family history of prostate cancer, hypertension and diabetes. Smoking Status: Never smoker Physical Exam Vital Signs Temp Pulse Resp BP 98.0 F 108 H 18 140/76 H 10/05/18 09:39 10/05/18 09:39 10/05/18 09:39 10/05/18 09:39 General: Alert, Oriented x3, Cooperative, No apparent distress HEENT: Atraumatic, Normocephalic Lungs: Normal air movement Cardiovascular: Regular rate, Regular Rhythm Psych/Mental Status: Normal Affect Assessment/Plan Active Problems (Last Reviewed 08/02/18 @ 14:19 by Jocelyn Barlow) Malnutrition (Chronic) Delayed wound healing (Chronic) Chronic ulcer of left foot with fat layer exposed (Chronic) Type 2 diabetes mellitus with diabetic polyneuropathy (Chronic) The patient appears to be tolerating hyperbaric oxygen therapy well, which will be continued as per the patient's medical plan.
[2018-10-06 14:10] LABS: Bedside Glucose 182 mg/dL (70-110)
[2018-10-06 16:11] LABS: Bedside Glucose 129 mg/dL (70-110)
[2018-10-06 16:21] VITALS: BP 118/73; BP 123/92; PULSE 100; PULSE 104; RESP 16; RESP 18; TEMP 37.1; TEMP 37.2
--- NOTE | 2018-10-06 17:39 | PCM.HBO.PN ---
History of Present Illness Date of Service: 10/06/18 Presenting Chief Complaint: Diabetic left foot ulceration, [employer] Grade 3 DON COTTO is a 28 year old currently undergoing hyperbaric oxygen therapy for diabetic left foot ulceration,Camacho Grade 3 Progress: Today's session represents the 14th such session of hyperbaric oxygen therapy. 40 such sessions are planned. Today's session was well tolerated. Tolerance of hyperbaric oxygen therapy: Hyperbaric oxygen therapy was administered as per the facility protocol for 90 minutes at 2.0 SANA of 100% oxygen. No air breaks were administered. The patient tolerated hyperbaric oxygen therapy well, without complaints or complications. Upon emergence from the hyperbaric chamber, the patient's vital signs remained stable. The patient was discharged in good condition. Blood sugars as noted in nursing notes. Past Medical History Chronic Problems (Last Reviewed 08/02/18 @ 14:19 by Jocelyn Barlow) Dehiscence of closure of subcutaneous tissue (Chronic) Hallux limitus of right foot (Chronic) Abscess of right foot (Chronic) Diabetes mellitus type 2, uncontrolled, with complications (Chronic) Venous insufficiency (Chronic) Hammer toe of right foot (Chronic) Hammer toe of left foot (Chronic) Pre-ulcerative corn or callous (Chronic) Malnutrition (Chronic) Deformity of metatarsal (Chronic) Delayed wound healing (Chronic) Diabetic foot ulcer (Chronic) Chronic ulcer of left foot with fat layer exposed (Chronic) Endometriosis (Chronic) Diabetes (Chronic) 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) Ulcer of right foot with necrosis of muscle (Chronic) Obesity (BMI 30.0-34.9) (Chronic) Diabetes mellitus, type II (Chronic) Allergies/Adverse Reactions: Allergies clindamycin Allergy (Verified 08/15/18 12:04) Hives vancomycin Allergy (Verified 08/15/18 12:04) Hives/makes my heart race Home Medications: Ambulatory Orders Medication Instructions Recorded Cholecalciferol (Vitamin D3) 2,000 unit PO DAILY 03/10/18 [Vitamin D3] insulin glargine (U-100) 100 68 unit SUBCUT QHS #15 ml 08/02/18 unit/mL (3 mL) subcutaneous pen insulin lispro (U- 100) 100 14 unit SC TID #15 ml 08/02/18 unit/mL subcutaneous pen Maternal Family History: Family History (Last Reviewed 08/02/18 @ 14:19 by Jocelyn Barlow) Grandfather Diabetes Leukemia Grandmother Diabetes Mother Diabetes Hypertension Father Prostate cancer Grandfather Myocardial infarction Family History: - - Patient notes a maternal family history of diabetes. Paternal Family History: Family History (Last Reviewed 08/02/18 @ 14:19 by Jocelyn Barlow) Grandfather Diabetes Leukemia Grandmother Diabetes Mother Diabetes Hypertension Father Prostate cancer Grandfather Myocardial infarction Family History: - - Patient notes a paternal family history of prostate cancer, hypertension and diabetes. Smoking Status: Never smoker Physical Exam Vital Signs Temp Pulse Resp BP 98.9 F 104 H 18 118/73 10/06/18 16:21 10/06/18 16:21 10/06/18 16:21 10/06/18 16:21 General: Alert, Oriented x3, Cooperative, No apparent distress Psych/Mental Status: Normal Affect, Appropriate Assessment/Plan Active Problems (Last Reviewed 08/02/18 @ 14:19 by Jocelyn Barlow) Malnutrition (Chronic) Delayed wound healing (Chronic) Chronic ulcer of left foot with fat layer exposed (Chronic) Type 2 diabetes mellitus with diabetic polyneuropathy (Chronic) The patient appears to be tolerating hyperbaric oxygen therapy well, which will be continued as per the patient's medical plan.
[2018-10-09 14:01] LABS: Bedside Glucose 205 mg/dL (70-110)
[2018-10-09 14:15] VITALS: BP 134/74; BP 141/71; PULSE 88; PULSE 99; RESP 16; RESP 18; TEMP 36.7; TEMP 36.8
--- NOTE | 2018-10-09 15:55 | PCM.HBO.PN ---
History of Present Illness Date of Service: 10/09/18 Presenting Chief Complaint: Diabetic left foot ulceration, [employer] Grade 3 DON COTTO is a 28 year old currently undergoing hyperbaric oxygen therapy for diabetic left foot ulceration,Camacho Grade 3 Progress: Today's session represents the 14th such session of hyperbaric oxygen therapy. 40 such sessions are planned. Today's session was well tolerated. Tolerance of hyperbaric oxygen therapy: Hyperbaric oxygen therapy was administered as per the facility protocol for 90 minutes at 2.0 SANA of 100% oxygen. No air breaks were administered. The patient tolerated hyperbaric oxygen therapy well, without complaints or complications. Upon emergence from the hyperbaric chamber, the patient's vital signs remained stable. The patient was discharged in good condition. Blood sugars: 205 before HBOT: 155 after HBOT. Past Medical History Chronic Problems (Last Reviewed 08/02/18 @ 14:19 by Jocelyn Barlow) Dehiscence of closure of subcutaneous tissue (Chronic) Hallux limitus of right foot (Chronic) Abscess of right foot (Chronic) Diabetes mellitus type 2, uncontrolled, with complications (Chronic) Venous insufficiency (Chronic) Hammer toe of right foot (Chronic) Hammer toe of left foot (Chronic) Pre-ulcerative corn or callous (Chronic) Malnutrition (Chronic) Deformity of metatarsal (Chronic) Delayed wound healing (Chronic) Diabetic foot ulcer (Chronic) Chronic ulcer of left foot with fat layer exposed (Chronic) Endometriosis (Chronic) Diabetes (Chronic) 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) Ulcer of right foot with necrosis of muscle (Chronic) Obesity (BMI 30.0-34.9) (Chronic) Diabetes mellitus, type II (Chronic) Allergies/Adverse Reactions: Allergies clindamycin Allergy (Verified 08/15/18 12:04) Hives vancomycin Allergy (Verified 08/15/18 12:04) Hives/makes my heart race Home Medications: Ambulatory Orders Medication Instructions Recorded Cholecalciferol (Vitamin D3) 2,000 unit PO DAILY 03/10/18 [Vitamin D3] insulin glargine (U-100) 100 68 unit SUBCUT QHS #15 ml 08/02/18 unit/mL (3 mL) subcutaneous pen insulin lispro (U- 100) 100 14 unit SC TID #15 ml 08/02/18 unit/mL subcutaneous pen Maternal Family History: Family History (Last Reviewed 08/02/18 @ 14:19 by Jocelyn Barlow) Grandfather Diabetes Leukemia Grandmother Diabetes Mother Diabetes Hypertension Father Prostate cancer Grandfather Myocardial infarction Family History: - - Patient notes a maternal family history of diabetes. Paternal Family History: Family History (Last Reviewed 08/02/18 @ 14:19 by Jocelyn Barlow) Grandfather Diabetes Leukemia Grandmother Diabetes Mother Diabetes Hypertension Father Prostate cancer Grandfather Myocardial infarction Family History: - - Patient notes a paternal family history of prostate cancer, hypertension and diabetes. Smoking Status: Never smoker Physical Exam Vital Signs Temp Pulse Resp BP 98.2 F 99 18 134/74 H 10/09/18 14:15 10/09/18 14:15 10/09/18 14:15 10/09/18 14:15 General: Alert, Oriented x3, Cooperative, No apparent distress, Well developed, Well nourished HEENT: Atraumatic, PERRLA, EOMI, Normocephalic Lungs: Normal air movement Psych/Mental Status: Normal Affect, Appropriate, Alert and oriented to time, place, person, mood and affect Assessment/Plan Active Problems (Last Reviewed 08/02/18 @ 14:19 by Jocelyn Barlow) Malnutrition (Chronic) Delayed wound healing (Chronic) Chronic ulcer of left foot with fat layer exposed (Chronic) Type 2 diabetes mellitus with diabetic polyneuropathy (Chronic) The patient appears to be tolerating hyperbaric oxygen therapy well, which will be continued as per the patient's medical plan.
[2018-10-09 16:01] LABS: Bedside Glucose 155 mg/dL (70-110)
[2018-10-10 10:10] LABS: Bedside Glucose 154 mg/dL (70-110)
--- NOTE | 2018-10-10 10:30 | PCM.HBO.PN ---
History of Present Illness Date of Service: 10/10/18 Presenting Chief Complaint: Diabetic left foot ulceration, [employer] Grade 3 DON COTTO is a 28 year old currently undergoing hyperbaric oxygen therapy for diabetic left foot ulceration,Camacho Grade 3 Progress: Today's session represents the 15th such session of hyperbaric oxygen therapy. 40 such sessions are planned. Today's session was well tolerated. Tolerance of hyperbaric oxygen therapy: Hyperbaric oxygen therapy was administered as per the facility protocol for 90 minutes at 2.0 SANA of 100% oxygen. No air breaks were administered. The patient tolerated hyperbaric oxygen therapy well, without complaints or complications. Upon emergence from the hyperbaric chamber, the patient's vital signs remained stable. The patient was discharged in good condition. See documented blood glucose levels. Past Medical History Chronic Problems (Last Reviewed 08/02/18 @ 14:19 by Jocelyn Barlow) Dehiscence of closure of subcutaneous tissue (Chronic) Hallux limitus of right foot (Chronic) Abscess of right foot (Chronic) Diabetes mellitus type 2, uncontrolled, with complications (Chronic) Venous insufficiency (Chronic) Hammer toe of right foot (Chronic) Hammer toe of left foot (Chronic) Pre-ulcerative corn or callous (Chronic) Malnutrition (Chronic) Deformity of metatarsal (Chronic) Delayed wound healing (Chronic) Diabetic foot ulcer (Chronic) Chronic ulcer of left foot with fat layer exposed (Chronic) Endometriosis (Chronic) Diabetes (Chronic) 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) Ulcer of right foot with necrosis of muscle (Chronic) Obesity (BMI 30.0-34.9) (Chronic) Diabetes mellitus, type II (Chronic) Allergies/Adverse Reactions: Allergies clindamycin Allergy (Verified 08/15/18 12:04) Hives vancomycin Allergy (Verified 08/15/18 12:04) Hives/makes my heart race Home Medications: Ambulatory Orders Medication Instructions Recorded Cholecalciferol (Vitamin D3) 2,000 unit PO DAILY 03/10/18 [Vitamin D3] insulin glargine (U-100) 100 68 unit SUBCUT QHS #15 ml 08/02/18 unit/mL (3 mL) subcutaneous pen insulin lispro (U- 100) 100 14 unit SC TID #15 ml 08/02/18 unit/mL subcutaneous pen Maternal Family History: Family History (Last Reviewed 08/02/18 @ 14:19 by Jocelyn Barlow) Grandfather Diabetes Leukemia Grandmother Diabetes Mother Diabetes Hypertension Father Prostate cancer Grandfather Myocardial infarction Family History: - - Patient notes a maternal family history of diabetes. Paternal Family History: Family History (Last Reviewed 08/02/18 @ 14:19 by Jocelyn Barlow) Grandfather Diabetes Leukemia Grandmother Diabetes Mother Diabetes Hypertension Father Prostate cancer Grandfather Myocardial infarction Family History: - - Patient notes a paternal family history of prostate cancer, hypertension and diabetes. Smoking Status: Never smoker Physical Exam Vital Signs Temp Pulse Resp BP 98.2 F 99 18 134/74 H 10/09/18 14:15 10/09/18 14:15 10/09/18 14:15 10/09/18 14:15 General: Alert, Oriented x3, Cooperative, No apparent distress HEENT: Atraumatic, TM's Clear Lungs: Clear to auscultation, Normal air movement Cardiovascular: Regular rate, Regular Rhythm Psych/Mental Status: Normal Affect, Appropriate, Alert and oriented to time, place, person, mood and affect Assessment/Plan Active Problems (Last Reviewed 08/02/18 @ 14:19 by Jocelyn Barlow) Malnutrition (Chronic) Delayed wound healing (Chronic) Chronic ulcer of left foot with fat layer exposed (Chronic) Type 2 diabetes mellitus with diabetic polyneuropathy (Chronic) The patient appears to be tolerating hyperbaric oxygen therapy well, which will be continued as per the patient's medical plan.
[2018-10-10 12:23] VITALS: BP 135/68; BP 137/74; PULSE 86; PULSE 98; RESP 16; TEMP 36.5; TEMP 37.3
[2018-10-10 12:36] LABS: Bedside Glucose 174 mg/dL (70-110)
[2018-10-11 14:11] LABS: Bedside Glucose 157 mg/dL (70-110)
[2018-10-11 16:13] VITALS: BP 127/75; BP 134/86; PULSE 100; PULSE 94; RESP 16; RESP 18; TEMP 36.5; TEMP 36.6
--- NOTE | 2018-10-11 16:16 | PCM.HBO.PN ---
History of Present Illness Date of Service: 10/11/18 Presenting Chief Complaint: Diabetic left foot ulceration, [employer] Grade 3 DON COTTO is a 28 year old currently undergoing hyperbaric oxygen therapy for diabetic left foot ulceration,Camacho Grade 3 Progress: Today's session represents the 16th such session of hyperbaric oxygen therapy. 40 such sessions are planned. Today's session was well tolerated. Tolerance of hyperbaric oxygen therapy: Hyperbaric oxygen therapy was administered as per the facility protocol for 90 minutes at 2.0 SANA of 100% oxygen. No air breaks were administered. The patient tolerated hyperbaric oxygen therapy well, without complaints or complications. Upon emergence from the hyperbaric chamber, the patient's vital signs remained stable. The patient was discharged in good condition. See documented blood glucose levels. Past Medical History Chronic Problems (Last Reviewed 08/02/18 @ 14:19 by Jocelyn Barlow) Dehiscence of closure of subcutaneous tissue (Chronic) Hallux limitus of right foot (Chronic) Abscess of right foot (Chronic) Diabetes mellitus type 2, uncontrolled, with complications (Chronic) Venous insufficiency (Chronic) Hammer toe of right foot (Chronic) Hammer toe of left foot (Chronic) Pre-ulcerative corn or callous (Chronic) Malnutrition (Chronic) Deformity of metatarsal (Chronic) Delayed wound healing (Chronic) Diabetic foot ulcer (Chronic) Chronic ulcer of left foot with fat layer exposed (Chronic) Endometriosis (Chronic) Diabetes (Chronic) 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) Ulcer of right foot with necrosis of muscle (Chronic) Obesity (BMI 30.0-34.9) (Chronic) Diabetes mellitus, type II (Chronic) Allergies/Adverse Reactions: Allergies clindamycin Allergy (Verified 08/15/18 12:04) Hives vancomycin Allergy (Verified 08/15/18 12:04) Hives/makes my heart race Home Medications: Ambulatory Orders Medication Instructions Recorded Cholecalciferol (Vitamin D3) 2,000 unit PO DAILY 03/10/18 [Vitamin D3] insulin glargine (U-100) 100 68 unit SUBCUT QHS #15 ml 08/02/18 unit/mL (3 mL) subcutaneous pen insulin lispro (U- 100) 100 14 unit SC TID #15 ml 08/02/18 unit/mL subcutaneous pen Maternal Family History: Family History (Last Reviewed 08/02/18 @ 14:19 by Jocelyn Barlow) Grandfather Diabetes Leukemia Grandmother Diabetes Mother Diabetes Hypertension Father Prostate cancer Grandfather Myocardial infarction Family History: - - Patient notes a maternal family history of diabetes. Paternal Family History: Family History (Last Reviewed 08/02/18 @ 14:19 by Jocelyn Barlow) Grandfather Diabetes Leukemia Grandmother Diabetes Mother Diabetes Hypertension Father Prostate cancer Grandfather Myocardial infarction Family History: - - Patient notes a paternal family history of prostate cancer, hypertension and diabetes. Smoking Status: Never smoker Physical Exam Vital Signs Temp Pulse Resp BP 97.7 F L 98 16 135/68 H 10/10/18 12:23 10/10/18 12:23 10/10/18 12:23 10/10/18 12:23 General: Alert, Oriented x3, Cooperative, No apparent distress HEENT: Atraumatic, TM's Clear Lungs: Clear to auscultation, Normal air movement Cardiovascular: Regular rate, Regular Rhythm Psych/Mental Status: Normal Affect, Appropriate, Alert and oriented to time, place, person, mood and affect Assessment/Plan Active Problems (Last Reviewed 08/02/18 @ 14:19 by Jocelyn Barlow) Malnutrition (Chronic) Delayed wound healing (Chronic) Chronic ulcer of left foot with fat layer exposed (Chronic) Type 2 diabetes mellitus with diabetic polyneuropathy (Chronic) The patient appears to be tolerating hyperbaric oxygen therapy well, which will be continued as per the patient's medical plan.
[2018-10-11 16:33] VITALS: BP 127/94; PULSE 94; RESP 16; TEMP 36.5; BMI 36.7
[2018-10-11 16:35] LABS: Bedside Glucose 101 mg/dL (70-110)
--- NOTE | 2018-10-11 17:09 | PCM.WC.PN ---
(1) Chronic ulcer of left foot with fat layer exposed Status: Chronic Current Visit: Yes Code(s): L97.522 - Non-pressure chronic ulcer of other part of left foot with fat layer exposed (2) Delayed wound healing Status: Chronic Current Visit: Yes Code(s): T14.8XXD - Other injury of unspecified body region, subsequent encounter (3) Malnutrition Status: Chronic Current Visit: Yes Code(s): E46 - Unspecified protein-calorie malnutrition (4) Type 2 diabetes mellitus with diabetic polyneuropathy Status: Chronic Current Visit: Yes Code(s): E11.42 - Type 2 diabetes mellitus with diabetic polyneuropathy Type of Wound Date of Service: 10/11/18 Chief Complaint: Diabetic left foot ulceration, Camacho Grade 3 History of Wound: This 28-year-old female with uncontrolled diabetes returns to clinic for follow-up chronic left foot ulcer. she denies subjective fever, chill, nausea, vomiting. She has been compliant with the dressing recommendations. she is no longer taking antibiotics. She does wear her forefoot offloading wide shoes. She continues hyperbaric oxygen therapy sessions and this is going well so far. It is noted her right foot ulcer sites have healed and she continues to wear the offloading wedge shoe. Her finals for college of this upcoming week and she anticipates being able to improve decreased walking compliance after the classes are completed. Progress of Wound: Stable with delayed healing - Physical Exam Vital Signs Temp Pulse Resp BP 97.7 F L 94 16 127/94 H 10/11/18 16:33 10/11/18 16:33 10/11/18 16:33 10/11/18 16:33 General: Alert, Oriented x3, Cooperative Extremities: No cyanosis, Capillary Refill Less than 3 Seconds, No Calf Tenderness - Negative Rockwell left, Edema - Mild left, Peripheral Pulses Normal Skin: Ulcer/ Wound - no purulence, erythema, streaking, odor, or infection or deep tissue or necrosis left foot. The peripheral skin is hairless and atrophic and slightly hyper pigmented, - - Right foot previous ulcer sites remain healed Wound Measurements and Assessment WC - Nurse 1 - General Ulcer Measurement Start: 09/18/18 16:19 Freq: Status: Active Protocol: Activity Type Activity Date Activity User E-Sign Co-Sign Detail Recorded Client Recorded Date Recorded By Document 10/11/18 16:33 DL [id number] 10/11/18 16:36 DL 10/11/18 16:33 Wound Center Nurse 1 [Ulcer Assessment] #1 LEFT PLANTAR -Current Size (cm) - Length 4.3 -Current Size (cm) - Width 2.4 -Current Size (cm) - Depth 0.5 -Total Square Cm 10.32 -Photo Taken No -Exudate Amt Medium -Exudate Type Serosanguineous -Wound Margin Thickened -Granulation Amt Large (67-100%) -Granulation Quality Red -Necrosis Amt None Present (0 %) -Structure Exposed N/A -Texture (Cheri-wound Skin Appearance) Callus Scarring -Moisture (Cheri-wound Skin Appearance Dry/Scaly ) -Color (Cheri-wound Skin Appearance) No Abnormality -Temperature (Cheri-wound Skin No Abnormality Appearance) (Pt Warm) -Tenderness on Palpation (Cheri-wound No Skin Appearance) -Ulcer Cleansing Wound Cleanser -Foul Odor after Cleansing No -Anesthetic Used 5% Lidocaine Gel WC - Nurse 2 - General Ulcer CM Notes Start: 09/18/18 16:19 Freq: Status: Active Protocol: Activity Type Activity Date Activity User E-Sign Co-Sign Detail Recorded Client Recorded Date Recorded By Document 10/11/18 16:39 [id number] 10/11/18 16:40 10/11/18 16:39 Wound Center Nurse 2 [Procedure/Treatment] -Time 16:40 -Correct Patient Yes -Correct Side, Site, Position Yes -Correct Procedure Yes -Procedure Performed Yes -Type of Procedure Debridement -Clinical Debridement Subcutaneous -Post Debridement Size (cm) - Length 4.3 -Post Debridement Size (cm) - Width 2.5 -Post Debridement Size (cm) - Depth 0.5 -Total Square Cm 10.75 -Wound/Ulcer Outcome Not Healed -Ulcer Cleansing Rinsed/ Irrigated with Saline -Foul Odor after Cleansing No -Bioengineered Tissue No -Bleeding Controlled with Pressure -Offloading Yes -Type of Offloading Surgical Shoe -Treatment Response Procedure Tolerated Well [See Physician Procedure note for Specifics] Pain Scale: 0-10 Numeric [Pain] -Is Patient Pain Free? Yes Musculoskeletal: No Tenderness to Palpation of Joints or Extremities, Muscle Wasting Neurological: - - Lack of epicritic sensation light touch bilateral lower extremities Psych/Mental Status: Normal Affect, Appropriate Debridement Note Post-Debridement Measurements/Treatment WC - Nurse 2 - General Ulcer CM Notes Start: 09/18/18 16:19 Freq: Status: Active Protocol: Activity Type Activity Date Activity User E-Sign Co-Sign Detail Recorded Client Recorded Date Recorded By Document 09/20/18 16:26 JF [id number] 09/20/18 16:30 JF Document 09/28/18 15:04 AN [id number] 09/28/18 15:08 AN Document 10/04/18 15:49 DL [id number] 10/04/18 15:49 DL Document 10/11/18 16:39 JF [id number] 10/11/18 16:40 JF 09/20/18 09/28/18 10/04/18 16:26 15:04 15:49 Wound Center Nurse 2 7-right dorsal foot -Time 16:28 -Correct Patient Yes -Correct Side, Site, Position Yes -Correct Procedure Yes -Procedure Performed Yes -Type of Procedure Debridement -Clinical Debridement Subcutaneous -Post Debridement Size (cm) - Length 0.8 -Post Debridement Size (cm) - Width 0.3 -Post Debridement Size (cm) - Depth 0.2 -Total Square Cm 0.24 -Wound/Ulcer Outcome Not Healed -Ulcer Cleansing Rinsed/ Irrigated with Saline -Foul Odor after Cleansing No -Bioengineered Tissue No -Bleeding Controlled with Pressure -Offloading Yes -Type of Offloading Surgical Shoe -Treatment Response Procedure Tolerated Well #4 RIGHT GREAT TOE MEDIAL -Correct Patient No -Correct Side, Site, Position No -Correct Procedure No -Procedure Performed No -Post Debridement Size (cm) - Length 0 -Post Debridement Size (cm) - Width 0 -Post Debridement Size (cm) - Depth 0 -Total Square Cm 0 -Wound/Ulcer Outcome Healed- Epithelialized #3 RIGHT FOOT PLANTAR -Time 16:27 -Correct Patient Yes -Correct Side, Site, Position Yes -Correct Procedure Yes -Procedure Performed Yes -Type of Procedure Debridement -Clinical Debridement Subcutaneous -Post Debridement Size (cm) - Length 0.3 -Post Debridement Size (cm) - Width 0.3 -Post Debridement Size (cm) - Depth 0.2 -Total Square Cm 0.09 -Wound/Ulcer Outcome Not Healed -Ulcer Cleansing Rinsed/ Irrigated with Saline -Foul Odor after Cleansing No -Bioengineered Tissue No -Bleeding Controlled with Pressure -Offloading Yes -Type of Offloading Surgical Shoe -Treatment Response Procedure Tolerated Well #1 LEFT PLANTAR -Time 16:27 15:07 15:49 -Correct Patient Yes Yes Yes -Correct Side, Site, Position Yes Yes Yes -Correct Procedure Yes Yes Yes -Procedure Performed Yes Yes Yes -Type of Procedure Debridement Debridement Debridement -Clinical Debridement Subcutaneous Subcutaneous Subcutaneous -Post Debridement Size (cm) - Length 4.8 4.9 4.8 -Post Debridement Size (cm) - Width 2.3 2.5 2.5 -Post Debridement Size (cm) - Depth 0.2 0.4 0.4 -Total Square Cm 11.04 12.25 12.00 -Wound/Ulcer Outcome Not Healed Not Healed Not Healed -Ulcer Cleansing Rinsed/ Rinsed/ Rinsed/ Irrigated with Irrigated with Irrigated with Saline Saline Saline -Foul Odor after Cleansing No No No -Bioengineered Tissue No No No -Bleeding Controlled with Pressure Pressure Pressure -Offloading Yes Yes Yes -Type of Offloading Surgical Shoe Surgical Shoe Surgical Shoe -Treatment Response Procedure Procedure Procedure Tolerated Well Tolerated Well Tolerated Well Pain Scale: 0-10 Numeric Is Patient Pain Free? Yes Yes Yes 10/11/18 16:39 Wound Center Nurse 2 7-right dorsal foot -Time -Correct Patient -Correct Side, Site, Position -Correct Procedure -Procedure Performed -Type of Procedure -Clinical Debridement -Post Debridement Size (cm) - Length -Post Debridement Size (cm) - Width -Post Debridement Size (cm) - Depth -Total Square Cm -Wound/Ulcer Outcome -Ulcer Cleansing -Foul Odor after Cleansing -Bioengineered Tissue -Bleeding Controlled with -Offloading -Type of Offloading -Treatment Response #4 RIGHT GREAT TOE MEDIAL -Correct Patient -Correct Side, Site, Position -Correct Procedure -Procedure Performed -Post Debridement Size (cm) - Length -Post Debridement Size (cm) - Width -Post Debridement Size (cm) - Depth -Total Square Cm -Wound/Ulcer Outcome #3 RIGHT FOOT PLANTAR -Time -Correct Patient -Correct Side, Site, Position -Correct Procedure -Procedure Performed -Type of Procedure -Clinical Debridement -Post Debridement Size (cm) - Length -Post Debridement Size (cm) - Width -Post Debridement Size (cm) - Depth -Total Square Cm -Wound/Ulcer Outcome -Ulcer Cleansing -Foul Odor after Cleansing -Bioengineered Tissue -Bleeding Controlled with -Offloading -Type of Offloading -Treatment Response #1 LEFT PLANTAR -Time 16:40 -Correct Patient Yes -Correct Side, Site, Position Yes -Correct Procedure Yes -Procedure Performed Yes -Type of Procedure Debridement -Clinical Debridement Subcutaneous -Post Debridement Size (cm) - Length 4.3 -Post Debridement Size (cm) - Width 2.5 -Post Debridement Size (cm) - Depth 0.5 -Total Square Cm 10.75 -Wound/Ulcer Outcome Not Healed -Ulcer Cleansing Rinsed/ Irrigated with Saline -Foul Odor after Cleansing No -Bioengineered Tissue No -Bleeding Controlled with Pressure -Offloading Yes -Type of Offloading Surgical Shoe -Treatment Response Procedure Tolerated Well Pain Scale: 0-10 Numeric Is Patient Pain Free? Yes Wound debrided: plantar foot Laterality: Left Wound Grade/Stage: grade 3 Type of Debridement: Excisional debridement Anesthesia Used: 5% Lidocaine Gel Depth: in the subcutaneous layer Percentage of wound debrided: 100 Instrument Used: #15 blade Tissue Removed: fibrous, devitalized subcutaneous, biofilm, slough Severity: Fat Layer Exposed Amount of bleeding with debridement: Mild Bleeding Controlled with: Pressure Patient tolerated procedure well Assessment/Plan Active Problems (Last Reviewed 08/02/18 @ 14:19 by Jocelyn Barlow) Malnutrition (Chronic) Delayed wound healing (Chronic) Chronic ulcer of left foot with fat layer exposed (Chronic) Type 2 diabetes mellitus with diabetic polyneuropathy (Chronic) Assessment: see above diagnoses Plan: I reviewed and discussed her care plan today. All of her ulcers to the right foot are healed today with full epithelialization. Debridement was performed today as noted in the clinical panel to the left foot. A dressing consisting of fibricol was applied. To change daily at home as advised to left foot. No dressing required to right foot. I recommend advanced wound healing product application to the left foot particularly with growth factors. I recommend regranix. The indication, purpose, anticipated application, healing time management and success was discussed in detail. She understands this would be performed daily at home and is amenable to proceed with the prior authorization process. To keep right foot moisturized and to check daily for reopening. This is not noted at this time. To continue to offload the right foot to allow the skin to remodel prior to transfer to extra depth diabetic shoes. No local infection noted at this time; no antibiotics are recommended at this time. Her intraoperative microbiology and pathology results were reviewed. It is noted that no acute osteomyelitis was confirmed with the clearance fragment pathology specimen. There is additionally no bacterial growth noted in the clearance fragment. The bacterial growth identified in the resected third metatarsal head was adequately covered by Augmentin and this is been completed. To continue to follow-up for medical management with PCP and endocrinology. She has continued hyperbaric oxygen therapy sessions and this is going well. The patient was educated on the importance of diet on wound healing and instructed to increase protein and vitamin C intake. To use assistive devices. To continue follow-up with nutrition services. Her most recent noninvasive vascular studies were reviewed from April 2018 with bilateral ankle-brachial indices 1.23. Her results demonstrated normal arterial perfusion. Her venous duplex Doppler studies with reflux evaluation were also reviewed and the results were discussed. 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 I do recommend future vascular surgeon referral to see if intervention may be completed. She will consider venous intervention. To follow-up with the wound healing center in 1 week. Answered her questions.
--- NOTE | 2018-10-11 17:16 | PN.PCM_ITS ---
(1) Chronic ulcer of left foot with fat layer exposed Status: Chronic Current Visit: Yes Code(s): L97.522 - Non-pressure chronic ulcer of other part of left foot with fat layer exposed (2) Delayed wound healing Status: Chronic Current Visit: Yes Code(s): T14.8XXD - Other injury of unspecified body region, subsequent encounter (3) Malnutrition Status: Chronic Current Visit: Yes Code(s): E46 - Unspecified protein- calorie malnutrition (4) Type 2 diabetes mellitus with diabetic polyneuropathy Status: Chronic Current Visit: Yes Code(s): E11.42 - Type 2 diabetes mellitus with diabetic polyneuropathy Type of Wound Date of Service: 10/11/18 Chief Complaint: Diabetic left foot ulceration, Camacho Grade 3 History of Wound: This 28-year-old female with uncontrolled diabetes returns to clinic for follow-up chronic left foot ulcer. she denies subjective fever, chill, nausea, vomiting. She has been compliant with the dressing recommendations. she is no longer taking antibiotics. She does wear her forefoot offloading wide shoes. She continues hyperbaric oxygen therapy sessions and this is going well so far. It is noted her right foot ulcer sites have healed and she continues to wear the offloading wedge shoe. Her finals for college of this upcoming week and she anticipates being able to improve decre ased walking compliance after the classes are completed. Progress of Wound: Stable with delayed healing - Physical Exam Vital Signs Temp Pulse Resp BP 97.7 F L 94 16 127/94 H 10/11/18 16:33 10/11/18 16:33 10/11/18 16:33 10/11/18 16:33 General: Alert, Oriented x3, Cooperative Extremities: No cyanosis, Capillary Refill Less than 3 Seconds, No Calf Tenderness - Negative Rockwell left, Edema - Mild left, Peripheral Pulses Normal Skin: Ulcer/ Wound - no purulence, erythema, streaking, odor, or infection or deep tissue or necrosis left foot. The peripheral skin is hairless and atrophic and slightly hyper pigmented, - - Right foot previous ulcer sites remain healed Wound Measurements and Assessment WC - Nurse 1 - General Ulcer Measurement Start: 09/18/18 16:19 Freq: Status: Active Protocol: Activity Type Activity Date Activity User E-Sign Co-Sign Detail Recorded Client Recorded Date Recorded By Document 10/11/18 16:33 DL [id number] 10/11/18 16:36 DL 10/11/18 16:33 Wound Center Nurse 1 [Ulcer Assessment] #1 LEFT PLANTAR -Current Size (cm) - Length 4.3 -Current Size (cm) - Width 2.4 -Current Size (cm) - Depth 0.5 -Total Square Cm 10.32 -Photo Taken No -Exudate Amt Medium -Exudate Type Serosanguineous -Wound Margin Thickened -Granulation Amt Large (67-100%) -Granulation Quality Red -Necrosis Amt None Present (0 %) -Structure Exposed N/A -Texture (Cheri-wound Skin Appearance) Callus Scarring -Moisture (Cheri-wound Skin Appearance Dry/Scaly ) -Color (Cheri-wound Skin Appearance) No Abnormality -Temperature (Cheri-wound Skin No Abnormality Appearance) (Pt Warm) -Tenderness on Palpation (Cheri-wound No Skin Appearance) -Ulcer Cleansing Wound Cleanser -Foul Odor after Cleansing No -Anesthetic Used 5% Lidocaine Gel WC - Nurse 2 - General Ulcer CM Notes Start: 09/18/18 16:19 Freq: Status: Active Protocol: Activity Type Activity Date Activity User E-Sign Co-Sign Detail Recorded Client Recorded Date Recorded By Document 10/11/18 16:39 JF [id number] 10/11/18 16:40 10/11/18 16:39 Wound Center Nurse 2 [Procedure/Treatment] -Time 16:40 -Correct Patient Yes -Correct Side, Site, Position Yes -Correct Procedure Yes -Procedure Performed Yes -Type of Procedure Debridement -Clinical Debridement Subcutaneous -Post Debridement Size (cm) - Length 4.3 -Post Debridement Size (cm) - Width 2.5 -Post Debridement Size (cm) - Depth 0.5 -Total Square Cm 10.75 -Wound/Ulcer Outcome Not Healed -Ulcer Cleansing Rinsed/ Irrigated with Saline -Foul Odor after Cleansing No -Bioengineered Tissue No -Bleeding Controlled with Pressure -Offloading Yes -Type of Offloading Surgical Shoe -Treatment Response Procedure Tolerated Well [See Physician Procedure note for Specifics] Pain Scale: 0-10 Numeric [Pain] -Is Patient Pain Free? Yes Musculoskeletal: No Tenderness to Palpation of Joints or Extremities, Muscle Wasting Neurological: - - Lack of epicritic sensation light touch bilateral lower extremities Psych/Mental Status: Normal Affect, Appropriate Debridement Note Post-Debridement Measurements/Treatment WC - Nurse 2 - General Ulcer CM Notes Start: 09/18/18 16:19 Freq: Status: Active Protocol: Activity Type Activity Date Activity User E-Sign Co-Sign Detail Recorded Client Recorded Date Recorded By Document 09/20/18 16:26 JF [id number] 09/20/18 16:30 JF Document 09/28/18 15:04 AN [id number] 09/28/18 15:08 AN Document 10/04/18 15:49 DL [id number] 10/04/18 15:49 DL Document 10/11/18 16:39 JF [id number] 10/11/18 16:40 JF 09/20/18 09/28/18 10/04/18 16:26 15:04 15:49 Wound Center Nurse 2 7-right dorsal foot -Time 16:28 -Correct Patient Yes -Correct Side, Site, Position Yes -Correct Procedure Yes -Procedure Performed Yes -Type of Procedure Debridement -Clinical Debridement Subcutaneous -Post Debridement Size (cm) - Length 0.8 -Post Debridement Size (cm) - Width 0.3 -Post Debridement Size (cm) - Depth 0.2 -Total Square Cm 0.24 -Wound/Ulcer Outcome Not Healed -Ulcer Cleansing Rinsed/ Irrigated with Saline -Foul Odor after Cleansing No -Bioengineered Tissue No -Bleeding Controlled with Pressure -Offloading Yes -Type of Offloading Surgical Shoe -Treatment Response Procedure Tolerated Well #4 RIGHT GREAT TOE MEDIAL -Correct Patient No -Correct Side, Site, Position No -Correct Procedure No -Procedure Performed No -Post Debridement Size (cm) - Length 0 -Post Debridement Size (cm) - Width 0 -Post Debridement Size (cm) - Depth 0 -Total Square Cm 0 -Wound/Ulcer Outcome Healed- Epithelialized #3 RIGHT FOOT PLANTAR -Time 16:27 -Correct Patient Yes -Correct Side, Site, Position Yes -Correct Procedure Yes -Procedure Performed Yes -Type of Procedure Debridement -Clinical Debridement Subcutaneous -Post Debridement Size (cm) - Length 0.3 -Post Debridement Size (cm) - Width 0.3 -Post Debridement Size (cm) - Depth 0.2 -Total Square Cm 0.09 -Wound/Ulcer Outcome Not Healed -Ulcer Cleansing Rinsed/ Irrigated with Saline -Foul Odor after Cleansing No -Bioengineered Tissue No -Bleeding Controlled with Pressure -Offloading Yes -Type of Offloading Surgical Shoe -Treatment Response Procedure Tolerated Well #1 LEFT PLANTAR -Time 16:27 15:07 15:49 -Correct Patient Yes Yes Yes -Correct Side, Site, Position Yes Yes Yes -Correct Procedure Yes Yes Yes -Procedure Performed Yes Yes Yes -Type of Procedure Debridement Debridement Debridement -Clinical Debridement Subcutaneous Subcutaneous Subcutaneous -Post Debridement Size (cm) - Length 4.8 4.9 4.8 -Post Debridement Size (cm) - Width 2.3 2.5 2.5 -Post Debridement Size (cm) - Depth 0.2 0.4 0.4 -Total Square Cm 11.04 12.25 12.00 -Wound/Ulcer Outcome Not Healed Not Healed Not Healed -Ulcer Cleansing Rinsed/ Rinsed/ Rinsed/ Irrigated with Irrigated with Irrigated with Saline Saline Saline -Foul Odor after Cleansing No No No -Bioengineered Tissue No No No -Bleeding Controlled with Pressure Pressure Pressure -Offloading Yes Yes Yes -Type of Offloading Surgical Shoe Surgical Shoe Surgical Shoe -Treatment Response Procedure Procedure Procedure Tolerated Well Tolerated Well Tolerated Well Pain Scale: 0-10 Numeric Is Patient Pain Free? Yes Yes Yes 10/11/18 16:39 Wound Center Nurse 2 7-right dorsal foot -Time -Correct Patient -Correct Side, Site, Position -Correct Procedure -Procedure Performed -Type of Procedure -Clinical Debridement -Post Debridement Size (cm) - Length -Post Debridement Size (cm) - Width -Post Debridement Size (cm) - Depth -Total Square Cm -Wound/Ulcer Outcome -Ulcer Cleansing -Foul Odor after Cleansing -Bioengineered Tissue -Bleeding Controlled with -Offloading -Type of Offloading -Treatment Response #4 RIGHT GREAT TOE MEDIAL -Correct Patient -Correct Side, Site, Position -Correct Procedure -Procedure Performed -Post Debridement Size (cm) - Length -Post Debridement Size (cm) - Width -Post Debridement Size (cm) - Depth -Total Square Cm -Wound/Ulcer Outcome #3 RIGHT FOOT PLANTAR -Time -Correct Patient -Correct Side, Site, Position -Correct Procedure -Procedure Performed -Type of Procedure -Clinical Debridement -Post Debridement Size (cm) - Length -Post Debridement Size (cm) - Width -Post Debridement Size (cm) - Depth -Total Square Cm -Wound/Ulcer Outcome -Ulcer Cleansing -Foul Odor after Cleansing -Bioengineered Tissue -Bleeding Controlled with -Offloading -Type of Offloading -Treatment Response #1 LEFT PLANTAR -Time 16:40 -Correct Patient Yes -Correct Side, Site, Position Yes -Correct Procedure Yes -Procedure Performed Yes -Type of Procedure Debridement -Clinical Debridement Subcutaneous -Post Debridement Size (cm) - Length 4.3 -Post Debridement Size (cm) - Width 2.5 -Post Debridement Size (cm) - Depth 0.5 -Total Square Cm 10.75 -Wound/Ulcer Outcome Not Healed -Ulcer Cleansing Rinsed/ Irrigated with Saline -Foul Odor after Cleansing No -Bioengineered Tissue No -Bleeding Controlled with Pressure -Offloading Yes -Type of Offloading Surgical Shoe -Treatment Response Procedure Tolerated Well Pain Scale: 0-10 Numeric Is Patient Pain Free? Yes Wound debrided: plantar foot Laterality: Left Wound Grade/Stage: grade 3 Type of Debridement: Excisional debridement Anesthesia Used: 5% Lidocaine Gel Depth: in the subcutaneous layer Percentage of wound debrided: 100 Instrument Used: #15 blade Tissue Removed: fibrous, devitalized subcutaneous, biofilm, slough Severity: Fat Layer Exposed Amount of bleeding with debridement: Mild Bleeding Controlled with: Pressure Patient tolerated procedure well Assessment/Plan Active Problems (Last Reviewed 08/02/18 @ 14:19 by Jocelyn Barlow) Malnutrition (Chronic) Delayed wound healing (Chronic) Chronic ulcer of left foot with fat layer exposed (Chronic) Type 2 diabetes mellitus with diabetic polyneuropathy (Chronic) Assessment: see above diagnoses Plan: I reviewed and discussed her care plan today. All of her ulcers to the right foot are healed today with full epithelialization. Debridement was performed today as noted in the clinical panel to the left foot. A dressing consisting of fibricol was applied. To change daily at home as advised to left foot. No dressing required to right foot. I recommend advanced wound healing product application to the left foot particularly with growth factors. I recommend regranix. The indication, purpose, anticipated application, healing time management and success was discussed in detail. She understands this would be performed daily at home and is amenable to proceed with the prior authorization process. To keep right foot moisturized and to check daily for reopening. This is not noted at this time. To continue to offload the right foot to allow the skin to remodel prior to transfer to extra depth diabetic shoes. No local infection noted at this time; no antibiotics are recommended at this time. Her intraoperative microbiology and pathology results were reviewed. It is noted that no acute osteomyelitis was confirmed with the clearance fragment pathology specimen. There is additionally no bacterial growth noted in the clearance fragment. The bacterial growth identified in the resected third metatarsal head was adequately covered by Augmentin and this is been completed. To continue to follow-up for medical management with PCP and endocrinology. She has continued hyperbaric oxygen therapy sessions and this is going well. The patient was educated on the importance of diet on wound healing and instructed to increase protein and vitamin C intake. To use assistive devices. To continue follow-up with nutrition services. Her most recent noninvasive vascular studies were reviewed from April 2018 with bilateral ankle-brachial indices 1.23. Her results demonstrated normal arterial perfusion. Her venous duplex Doppler studies with reflux evaluation were also reviewed and the results were discussed. 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 I do recommend future vascular surgeon referral to see if intervention may be completed. She will consider venous intervention. To follow-up with the wound healing center in 1 week. Answered her questions.
[2018-10-12 13:10] LABS: Bedside Glucose 295 mg/dL (70-110)
[2018-10-12 13:30] LABS: Bedside Glucose 213 mg/dL (70-110)
[2018-10-12 13:50] LABS: Bedside Glucose 206 mg/dL (70-110)
--- NOTE | 2018-10-12 15:33 | WC ---
Patient arrived for HBO treatment at 1300. Blood sugar 295. Stated she ate lunch around noon and administered insulin dose per sliding scale at 1215. Blood sugar rechecked at 1325 with result of 213. Drank a protein shake at this time due to taking insulin and not eating much lunch. Blood sugar checked at 1345 before starting HBO treatment with a result of 208. C/O slight nasal congestion. Denies sore throat or coughing. Ears examined, no redness or irritation noted and tubes intact. States feeling well for treatment. HBO treatment initiated. Treatment stopped and aborted after 5 minutes of chamber pressurizing per patient choice. C/O feeling sinus pressure as treatment progressed. Denies sinus pressure after treatment stopped. Dressing change provided to right plantar foot due to bandage soiled. Tolerated well. Oscar Napier [employer] notified of blood sugars and aborted treatment.
== END 2018-10-17 23:59 ==
LOC: WC 14:00
PROVIDERS: Family Provider Internal Medicine; PCP Internal Medicine; Referring Provider Podiatrist; Visit Provider Podiatrist
DX: E11.621 Type 2 diabetes mellitus with foot ulcer (principal); L97.512 Non-pressure chronic ulcer of other part of right foot with fat layer exposed; E11.42 Type 2 diabetes mellitus with diabetic polyneuropathy; L97.522 Non-pressure chronic ulcer of other part of left foot with fat layer exposed; E11.65 Type 2 diabetes mellitus with hyperglycemia; Z91.19 Patient's noncompliance with other medical treatment and regimen; M20.41 Other hammer toe(s) (acquired), right foot; M20.42 Other hammer toe(s) (acquired), left foot; E66.9 Obesity, unspecified; Z68.37 Body mass index [BMI] 37.0-37.9, adult
CPT/HCPCS: 11042; 82962; 99183; 99212; G0277; G0463

== ENCOUNTER 2018-11-17 09:00 | Outpatient (RCR) | payer OTHER, SELFPAY ==
[2018-10-11 16:33] VITALS: BMI 36.7
[2018-10-18 01:05] VITALS: BP 134/86; PULSE 100; RESP 18; TEMP 36.6
[2018-10-18 13:36] LABS: Bedside Glucose 146 mg/dL (70-110)
[2018-10-18 13:49] VITALS: BP 127/73; BP 132/90; PULSE 105; PULSE 94; RESP 16; RESP 18; TEMP 36; TEMP 36.3
--- NOTE | 2018-10-18 14:41 | PCM.HBO.PN ---
History of Present Illness Date of Service: 10/18/18 Presenting Chief Complaint: Diabetic left foot ulceration, Camacho Grade 3 DON COTTO is a 28 year old currently undergoing hyperbaric oxygen therapy for diabetic left foot ulceration,Camacho Grade 3 Progress: Today's session represents the 17th such session of hyperbaric oxygen therapy. 40 such sessions are planned. Today's session was well tolerated. Tolerance of hyperbaric oxygen therapy: Hyperbaric oxygen therapy was administered as per the facility protocol for 90 minutes at 2.0 SANA of 100% oxygen. No air breaks were administered. The patient tolerated hyperbaric oxygen therapy well, without complaints or complications. Upon emergence from the hyperbaric chamber, the patient's vital signs remained stable. The patient was discharged in good condition. See documented blood glucose levels. Past Medical History Chronic Problems (Last Reviewed 08/02/18 @ 14:19 by Jocelyn Barlow) Dehiscence of closure of subcutaneous tissue (Chronic) Hallux limitus of right foot (Chronic) Abscess of right foot (Chronic) Diabetes mellitus type 2, uncontrolled, with complications (Chronic) Venous insufficiency (Chronic) Hammer toe of right foot (Chronic) Hammer toe of left foot (Chronic) Pre-ulcerative corn or callous (Chronic) Malnutrition (Chronic) Deformity of metatarsal (Chronic) Delayed wound healing (Chronic) Diabetic foot ulcer (Chronic) Chronic ulcer of left foot with fat layer exposed (Chronic) Endometriosis (Chronic) Diabetes (Chronic) 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) Ulcer of right foot with necrosis of muscle (Chronic) Obesity (BMI 30.0-34.9) (Chronic) Diabetes mellitus, type II (Chronic) Allergies/Adverse Reactions: Allergies clindamycin Allergy (Verified 08/15/18 12:04) Hives vancomycin Allergy (Verified 08/15/18 12:04) Hives/makes my heart race Home Medications: Ambulatory Orders Medication Instructions Recorded Cholecalciferol (Vitamin D3) 2,000 unit PO DAILY 03/10/18 [Vitamin D3] insulin glargine (U-100) 100 68 unit SUBCUT QHS #15 ml 08/02/18 unit/mL (3 mL) subcutaneous pen insulin lispro (U- 100) 100 14 unit SC TID #15 ml 08/02/18 unit/mL subcutaneous pen Maternal Family History: Family History (Last Reviewed 08/02/18 @ 14:19 by Jocelyn Barlow) Grandfather Diabetes Leukemia Grandmother Diabetes Mother Diabetes Hypertension Father Prostate cancer Grandfather Myocardial infarction Family History: - - Patient notes a maternal family history of diabetes. Paternal Family History: Family History (Last Reviewed 08/02/18 @ 14:19 by Jocelyn Barlow) Grandfather Diabetes Leukemia Grandmother Diabetes Mother Diabetes Hypertension Father Prostate cancer Grandfather Myocardial infarction Family History: - - Patient notes a paternal family history of prostate cancer, hypertension and diabetes. Smoking Status: Never smoker Physical Exam Vital Signs Temp Pulse Resp BP 96.8 F L 105 H 18 127/73 H 10/18/18 13:49 10/18/18 13:49 10/18/18 13:49 10/18/18 13:49 General: Alert, Oriented x3, Cooperative, No apparent distress HEENT: Atraumatic, TM's Clear Lungs: Clear to auscultation, Normal air movement Cardiovascular: Regular rate, Regular Rhythm Psych/Mental Status: Normal Affect, Appropriate, Alert and oriented to time, place, person, mood and affect Assessment/Plan The patient appears to be tolerating hyperbaric oxygen therapy well, which will be continued as per the patient's medical plan.
[2018-10-18 15:46] LABS: Bedside Glucose 158 mg/dL (70-110)
[2018-10-18 15:58] VITALS: BP 132/90; PULSE 94; RESP 16; TEMP 36.3; BMI 36.7
--- NOTE | 2018-10-18 16:24 | PN.PCM_ITS ---
(1) Chronic ulcer of left foot with fat layer exposed Status: Chronic Current Visit: Yes Code(s): L97.522 - Non-pressure chronic ulcer of other part of left foot with fat layer exposed (2) Malnutrition Status: Suspected Current Visit: Yes Code(s): E46 - Unspecified protein- calorie malnutrition (3) Delayed wound healing Status: Chronic Current Visit: Yes Code(s): T14.8XXD - Other injury of unspecified body region, subsequent encounter (4) Type 2 diabetes mellitus with diabetic polyneuropathy Status: Chronic Current Visit: Yes Code(s): E11.42 - Type 2 diabetes mellitus with diabetic polyneuropathy Type of Wound Date of Service: 10/18/18 Chief Complaint: Diabetic left foot ulceration, Camacho Grade 3 History of Wound: This 28-year-old female with uncontrolled diabetes returns to clinic for follow-up chronic left foot ulcer. she denies subjective fever, chill, nausea, vomiting. She has been compliant with the dressing recommendations. she is no longer taking antibiotics. She does wear her forefoot offloading wide shoes. She continues hyperbaric oxygen therapy sessions and this is going well so far. It is noted her right foot ulcer sites have healed and she continues to wear the offloading wedge shoe. Progress of Wound: Stable - Physical Exam Vital Signs Temp Pulse Resp BP 97.3 F L 94 16 132/90 H 10/18/18 15:58 10/18/18 15:58 10/18/18 15:58 10/18/18 15:58 General: Alert, Oriented x3, Cooperative Extremities: No cyanosis, Capillary Refill Less than 3 Seconds, No Calf Tenderness - negative cameron and zeng, left, Diminished Peripheral Pulses, Edema - mild left foot Skin: Ulcer/ Wound - no purlence, no erythema, no streaking, no odor, no infection left. peripheral skin is hairless and atrophic Wound Measurements and Assessment WC - Nurse 1 - General Ulcer Measurement Start: 10/18/18 13:49 Freq: Status: Active Protocol: Activity Type Activity Date Activity User E-Sign Co-Sign Detail Recorded Client Recorded Date Recorded By Document 10/18/18 15:58 AMMON [id number] 10/18/18 16:00 AMMON 10/18/18 15:58 Wound Center Nurse 1 [Ulcer Assessment] #1 LEFT PLANTAR -Combined with other wound No -Current Size (cm) - Length 4.5 -Current Size (cm) - Width 2.6 -Current Size (cm) - Depth 0.5 -Total Square Cm 11.70 -Photo Taken No -Epithelialization Small 1-33% -Tunneling No -Undermining/Tunneling No -Circular Undermining No -Exudate Amt Large -Exudate Type Serosanguineous -Wound Margin Flat & Intact -Granulation Amt Large (67-100%) -Granulation Quality Red -Slough/Fibrin Yes -Necrosis Amt Small (1-33%) -Necrotic Tissue Type Adherent Slough -Structure Exposed N/A -Texture (Cheri-wound Skin Appearance) Assessed -Moisture (Cheri-wound Skin Appearance Assessed ) Dry/Scaly -Color (Cheri-wound Skin Appearance) Assessed -Temperature (Cheri-wound Skin No Abnormality Appearance) (Pt Warm) -Tenderness on Palpation (Cheri-wound No Skin Appearance) -Ulcer Cleansing Rinsed/ Irrigated with Saline -Foul Odor after Cleansing No -Anesthetic Used 4% Lidocaine Solution [Edema Assessment] -Lower Limb Edema Present No WC - Nurse 2 - General Ulcer CM Notes Start: 10/18/18 13:49 Freq: Status: Active Protocol: Activity Type Activity Date Activity User E-Sign Co-Sign Detail Recorded Client Recorded Date Recorded By Document 10/18/18 16:10 AMMON [id number] 10/18/18 16:14 AMMON 10/18/18 16:10 Wound Center Nurse 2 [Procedure/Treatment] #1 LEFT PLANTAR -Time 16:12 -Correct Patient Yes -Correct Side, Site, Position Yes -Correct Procedure Yes -Procedure Performed Yes -Type of Procedure Debridement -Clinical Debridement Subcutaneous -Post Debridement Size (cm) - Length 4.5 -Post Debridement Size (cm) - Width 2.8 -Post Debridement Size (cm) - Depth 0.5 -Total Square Cm 12.60 -Wound/Ulcer Outcome Not Healed -Ulcer Cleansing Rinsed/ Irrigated with Saline -Foul Odor after Cleansing No -Bioengineered Tissue No -Bleeding Controlled with Pressure -Offloading Yes -Type of Offloading Surgical Shoe -Treatment Response Procedure Tolerated Well [See Physician Procedure note for Specifics] Pain Scale: 0-10 Numeric [Pain] -Is Patient Pain Free? Yes Musculoskeletal: No Tenderness to Palpation of Joints or Extremities, Muscle Wasting Neurological: - - lack of epicritic sensation via light touch consistent with neuropathy left foot Psych/Mental Status: Normal Affect, Appropriate Debridement Note Post-Debridement Measurements/Treatment WC - Nurse 2 - General Ulcer CM Notes Start: 10/18/18 13:49 Freq: Status: Active Protocol: Activity Type Activity Date Activity User E-Sign Co-Sign Detail Recorded Client Recorded Date Recorded By Document 10/18/18 16:10 [id number] 10/18/18 16:14 AMMON 10/18/18 16:10 Wound Center Nurse 2 #1 LEFT PLANTAR -Time 16:12 -Correct Patient Yes -Correct Side, Site, Position Yes -Correct Procedure Yes -Procedure Performed Yes -Type of Procedure Debridement -Clinical Debridement Subcutaneous -Post Debridement Size (cm) - Length 4.5 -Post Debridement Size (cm) - Width 2.8 -Post Debridement Size (cm) - Depth 0.5 -Total Square Cm 12.60 -Wound/Ulcer Outcome Not Healed -Ulcer Cleansing Rinsed/ Irrigated with Saline -Foul Odor after Cleansing No -Bioengineered Tissue No -Bleeding Controlled with Pressure -Offloading Yes -Type of Offloading Surgical Shoe -Treatment Response Procedure Tolerated Well Pain Scale: 0-10 Numeric Is Patient Pain Free? Yes Wound debrided: plantar medial foot Laterality: Left Wound Grade/Stage: grade 3 Type of Debridement: Excisional debridement Anesthesia Used: 5% Lidocaine Gel Depth: in the subcutaneous layer Percentage of wound debrided: 100 Instrument Used: #15 blade Tissue Removed: fibrous, devitalized subcutaneous, biofilm, slough Severity: Fat Layer Exposed Amount of bleeding with debridement: Mild Bleeding Controlled with: Pressure Patient tolerated procedure well Assessment/Plan Active Problems (Last Reviewed 08/02/18 @ 14:19 by Jocelyn Barlow) Delayed wound healing (Chronic) Chronic ulcer of left foot with fat layer exposed (Chronic) Type 2 diabetes mellitus with diabetic polyneuropathy (Chronic) Assessment: see above diagnoses Plan: I reviewed and discussed her care plan today. All of her ulcers to the right foot are healed today with full epithelialization. Debridement was performed today as noted in the clinical panel to the left foot. A dressing consisting of fibricol was applied. To change daily at home as advised to left foot. No dressing required to right foot. I recommend advanced wound healing product application to the left foot particularly with growth factors. I recommend regranix. The indication, purpose, anticipated application, healing time management and success was discussed in detail. She understands this would be performed daily at home. The prior authorization process is still pending. To keep right foot moisturized and to check daily for reopening. This is not noted at this time. To continue to offload the right foot to allow the skin to remodel prior to transfer to extra depth diabetic shoes. No local infection noted at this time; no antibiotics are recommended at this time. Her intraoperative microbiology and pathology results were reviewed. It is noted that no acute osteomyelitis was confirmed with the clearance fragment pathology specimen. There is additionally no bacterial growth noted in the clearance fragment. The bacterial growth identified in the resected third metatarsal head was adequately covered by Augmentin and this is been completed. To continue to follow-up for medical management with PCP and endocrinology. She has continued hyperbaric oxygen therapy sessions and this is going well. The patient was educated on the importance of diet on wound healing and instructed to increase protein and vitamin C intake. To use assistive devices. To continue follow-up with nutrition services. Her most recent noninvasive vascular studies were reviewed from April 2018 with bilateral ankle-brachial indices 1.23. Her results demonstrated normal arterial perfusion. Her venous duplex Doppler studies with reflux evaluation were also reviewed and the results were discussed. 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 I do recommend future vascular surgeon referral to see if intervention may be completed. She will consider venous intervention. To follow-up with the wound healing center in 1 week. Answered her questions.
[2018-10-19 10:01] LABS: Bedside Glucose 167 mg/dL (70-110)
[2018-10-19 10:35] VITALS: BP 124/74; BP 139/62; PULSE 110; PULSE 89; RESP 16; RESP 18; TEMP 36.1; TEMP 36.7
--- NOTE | 2018-10-19 11:19 | HBO.PN.PCM_ITS ---
History of Present Illness Presenting Chief Complaint: Diabetic left foot ulceration, Camacho Grade 3 DON COTTO is a 28 year old currently undergoing hyperbaric oxygen therapy for diabetic left foot ulceration,Camacho Grade 3 Progress: Today's session represents the 18th such session of hyperbaric oxygen therapy. 40 such sessions are planned. Today's session was well tolerated. Tolerance of hyperbaric oxygen therapy: Hyperbaric oxygen therapy was administered as per the facility protocol. Patient finished earlier due to pl anned commitments. The patient tolerated hyperbaric oxygen therapy well, without complaints or complications. Upon emergence from the hyperbaric chamber, the patient's vital signs remained stable. The patient was discharged in good condition. See documented blood glucose levels. Past Medical History Chronic Problems (Last Reviewed 08/02/18 @ 14:19 by Jocelyn Barlow) Dehiscence of closure of subcutaneous tissue (Chronic) Hallux limitus of right foot (Chronic) Abscess of right foot (Chronic) Diabetes mellitus type 2, uncontrolled, with complications (Chronic) Venous insufficiency (Chronic) Hammer toe of right foot (Chronic) Hammer toe of left foot (Chronic) Pre-ulcerative corn or callous (Chronic) Deformity of metatarsal (Chronic) Delayed wound healing (Chronic) Diabetic foot ulcer (Chronic) Chronic ulcer of left foot with fat layer exposed (Chronic) Endometriosis (Chronic) Diabetes (Chronic) 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) Ulcer of right foot with necrosis of muscle (Chronic) Obesity (BMI 30.0-34.9) (Chronic) Diabetes mellitus, type II (Chronic) Allergies/Adverse Reactions: Allergies clindamycin Allergy (Verified 08/15/18 12:04) Hives vancomycin Allergy (Verified 08/15/18 12:04) Hives/makes my heart race Home Medications: Ambulatory Orders Medication Instructions Recorded Cholecalciferol (Vitamin D3) 2,000 unit PO DAILY 03/10/18 [Vitamin D3] insulin glargine (U-100) 100 68 unit SUBCUT QHS #15 ml 08/02/18 unit/mL (3 mL) subcutaneous pen insulin lispro (U- 100) 100 14 unit SC TID #15 ml 08/02/18 unit/mL subcutaneous pen Maternal Family History: Family History (Last Reviewed 08/02/18 @ 14:19 by Jocelyn Barlow) Grandfather Diabetes Leukemia Grandmother Diabetes Mother Diabetes Hypertension Father Prostate cancer Grandfather Myocardial infarction Family History: - - Patient notes a maternal family history of diabetes. Paternal Family History: Family History (Last Reviewed 08/02/18 @ 14:19 by Jocelyn Barlow) Grandfather Diabetes Leukemia Grandmother Diabetes Mother Diabetes Hypertension Father Prostate cancer Grandfather Myocardial infarction Family History: - - Patient notes a paternal family history of prostate cancer, hypertension and diabetes. Smoking Status: Never smoker Physical Exam Vital Signs Temp Pulse Resp BP 97.0 F L 110 H 18 139/62 H 10/19/18 10:35 10/19/18 10:35 10/19/18 10:35 10/19/18 10:35 General: Alert, Oriented x3, Cooperative, No apparent distress HEENT: Atraumatic Lungs: Normal air movement Psych/Mental Status: Normal Affect Assessment/Plan Active Problems (Last Reviewed 08/02/18 @ 14:19 by Jocelyn Barlow) Delayed wound healing (Chronic) Chronic ulcer of left foot with fat layer exposed (Chronic) Type 2 diabetes mellitus with diabetic polyneuropathy (Chronic) The patient appears to be tolerating hyperbaric oxygen therapy well, which will be continued as per the patient's medical plan.
[2018-10-19 12:15] LABS: Bedside Glucose 149 mg/dL (70-110)
[2018-10-20 08:21] VITALS: BP 118/67; BP 128/67; PULSE 101; PULSE 90; RESP 16; RESP 18; TEMP 36.2; TEMP 36.3
--- NOTE | 2018-10-20 09:43 | HBO.PN.PCM_ITS ---
History of Present Illness Presenting Chief Complaint: Diabetic left foot ulceration, Camacho Grade 3 DON COTTO is a 28 year old currently undergoing hyperbaric oxygen therapy for diabetic left foot ulceration,Camacho Grade 3 Progress: Today's session represents the 18th such session of hyperbaric oxygen therapy. 41 such sessions are planned. Today's session was well tolerated. Tolerance of hyperbaric oxygen therapy: Hyperbaric oxygen therapy was administered as per the facility protocol. Patient finished earlier due to pl anned commitments. The patient tolerated hyperbaric oxygen therapy well, without complaints or complications. Upon emergence from the hyperbaric chamber, the patient's vital signs remained stable. The patient was discharged in good condition. See documented blood glucose levels. Past Medical History Chronic Problems (Last Reviewed 08/02/18 @ 14:19 by Jocelyn Barlow) Dehiscence of closure of subcutaneous tissue (Chronic) Hallux limitus of right foot (Chronic) Abscess of right foot (Chronic) Diabetes mellitus type 2, uncontrolled, with complications (Chronic) Venous insufficiency (Chronic) Hammer toe of right foot (Chronic) Hammer toe of left foot (Chronic) Pre-ulcerative corn or callous (Chronic) Deformity of metatarsal (Chronic) Delayed wound healing (Chronic) Diabetic foot ulcer (Chronic) Chronic ulcer of left foot with fat layer exposed (Chronic) Endometriosis (Chronic) Diabetes (Chronic) 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) Ulcer of right foot with necrosis of muscle (Chronic) Obesity (BMI 30.0-34.9) (Chronic) Diabetes mellitus, type II (Chronic) Allergies/Adverse Reactions: Allergies clindamycin Allergy (Verified 08/15/18 12:04) Hives vancomycin Allergy (Verified 08/15/18 12:04) Hives/makes my heart race Home Medications: Ambulatory Orders Medication Instructions Recorded Cholecalciferol (Vitamin D3) 2,000 unit PO DAILY 03/10/18 [Vitamin D3] insulin glargine (U-100) 100 68 unit SUBCUT QHS #15 ml 08/02/18 unit/mL (3 mL) subcutaneous pen insulin lispro (U- 100) 100 14 unit SC TID #15 ml 08/02/18 unit/mL subcutaneous pen Maternal Family History: Family History (Last Reviewed 08/02/18 @ 14:19 by Jocelyn Barlow) Grandfather Diabetes Leukemia Grandmother Diabetes Mother Diabetes Hypertension Father Prostate cancer Grandfather Myocardial infarction Family History: - - Patient notes a maternal family history of diabetes. Paternal Family History: Family History (Last Reviewed 08/02/18 @ 14:19 by Jocelyn Barlow) Grandfather Diabetes Leukemia Grandmother Diabetes Mother Diabetes Hypertension Father Prostate cancer Grandfather Myocardial infarction Family History: - - Patient notes a paternal family history of prostate cancer, hypertension and diabetes. Smoking Status: Never smoker Physical Exam Vital Signs Temp Pulse Resp BP 97.2 F L 101 H 18 118/67 10/20/18 08:21 10/20/18 08:21 10/20/18 08:21 10/20/18 08:21 Assessment/Plan Active Problems (Last Reviewed 08/02/18 @ 14:19 by Jocelyn Barlow) Delayed wound healing (Chronic) Chronic ulcer of left foot with fat layer exposed (Chronic) Type 2 diabetes mellitus with diabetic polyneuropathy (Chronic) The patient appears to be tolerating hyperbaric oxygen therapy well, which will be continued as per the patient's medical plan.
[2018-10-20 10:06] LABS: Bedside Glucose 174 mg/dL (70-110)
[2018-10-20 10:10] LABS: Bedside Glucose 189 mg/dL (70-110)
[2018-10-23 12:16] LABS: Bedside Glucose 244 mg/dL (70-110)
[2018-10-23 12:22] VITALS: BP 128/69; BP 133/78; PULSE 112; PULSE 86; RESP 16; RESP 18; TEMP 36.2; TEMP 36.4
--- NOTE | 2018-10-23 12:43 | PCM.HBO.PN ---
History of Present Illness Date of Service: 10/23/18 Presenting Chief Complaint: Diabetic left foot ulceration, Camacho Grade 3 DON COTTO is a 28 year old currently undergoing hyperbaric oxygen therapy for diabetic left foot ulceration,Camacho Grade 3 Progress: Today's session represents the 20th such session of hyperbaric oxygen therapy. 40 such sessions are planned. Today's session was well tolerated. Tolerance of hyperbaric oxygen therapy: Hyperbaric oxygen therapy was administered as per the facility protocol. Patient finished earlier due to planned commitments. The patient tolerated hyperbaric oxygen therapy well, without complaints or complications. Upon emergence from the hyperbaric chamber, the patient's vital signs remained stable. The patient was discharged in good condition. See documented blood glucose levels. Past Medical History Chronic Problems (Last Reviewed 08/02/18 @ 14:19 by Jocelyn Barlow) Dehiscence of closure of subcutaneous tissue (Chronic) Hallux limitus of right foot (Chronic) Abscess of right foot (Chronic) Diabetes mellitus type 2, uncontrolled, with complications (Chronic) Venous insufficiency (Chronic) Hammer toe of right foot (Chronic) Hammer toe of left foot (Chronic) Pre-ulcerative corn or callous (Chronic) Deformity of metatarsal (Chronic) Delayed wound healing (Chronic) Diabetic foot ulcer (Chronic) Chronic ulcer of left foot with fat layer exposed (Chronic) Endometriosis (Chronic) Diabetes (Chronic) 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) Ulcer of right foot with necrosis of muscle (Chronic) Obesity (BMI 30.0-34.9) (Chronic) Diabetes mellitus, type II (Chronic) Allergies/Adverse Reactions: Allergies clindamycin Allergy (Verified 08/15/18 12:04) Hives vancomycin Allergy (Verified 08/15/18 12:04) Hives/makes my heart race Home Medications: Ambulatory Orders Medication Instructions Recorded Cholecalciferol (Vitamin D3) 2,000 unit PO DAILY 03/10/18 [Vitamin D3] insulin glargine (U-100) 100 68 unit SUBCUT QHS #15 ml 08/02/18 unit/mL (3 mL) subcutaneous pen insulin lispro (U- 100) 100 14 unit SC TID #15 ml 08/02/18 unit/mL subcutaneous pen Maternal Family History: Family History (Last Reviewed 08/02/18 @ 14:19 by Jocelyn Barlow) Grandfather Diabetes Leukemia Grandmother Diabetes Mother Diabetes Hypertension Father Prostate cancer Grandfather Myocardial infarction Family History: - - Patient notes a maternal family history of diabetes. Paternal Family History: Family History (Last Reviewed 08/02/18 @ 14:19 by Jocelyn Barlow) Grandfather Diabetes Leukemia Grandmother Diabetes Mother Diabetes Hypertension Father Prostate cancer Grandfather Myocardial infarction Family History: - - Patient notes a paternal family history of prostate cancer, hypertension and diabetes. Smoking Status: Never smoker Physical Exam Vital Signs Temp Pulse Resp BP 97.5 F L 112 H 18 133/78 H 10/23/18 12:22 10/23/18 12:22 10/23/18 12:22 10/23/18 12:22 General: Alert, Oriented x3, Cooperative, No apparent distress HEENT: Atraumatic, TM's Clear Lungs: Clear to auscultation, Normal air movement Cardiovascular: Regular rate, Regular Rhythm Psych/Mental Status: Normal Affect, Appropriate, Alert and oriented to time, place, person, mood and affect Assessment/Plan Active Problems (Last Reviewed 08/02/18 @ 14:19 by Jocelyn Barlow) Delayed wound healing (Chronic) Chronic ulcer of left foot with fat layer exposed (Chronic) Type 2 diabetes mellitus with diabetic polyneuropathy (Chronic) The patient appears to be tolerating hyperbaric oxygen therapy well, which will be continued as per the patient's medical plan.
[2018-10-23 14:16] LABS: Bedside Glucose 150 mg/dL (70-110)
[2018-10-24 13:21] LABS: Bedside Glucose 176 mg/dL (70-110)
[2018-10-24 13:36] VITALS: BP 140/76; BP 153/80; PULSE 104; PULSE 86; RESP 16; RESP 18; TEMP 36.2; TEMP 36.6
[2018-10-24 15:26] LABS: Bedside Glucose 146 mg/dL (70-110)
--- NOTE | 2018-10-24 16:07 | PCM.HBO.PN ---
History of Present Illness Date of Service: 10/24/18 Presenting Chief Complaint: Diabetic left foot ulceration, Camacho Grade 3 DON COTTO is a 28 year old currently undergoing hyperbaric oxygen therapy for diabetic left foot ulceration,Camacho Grade 3 Progress: Today's session represents the 21th such session of hyperbaric oxygen therapy. 40 such sessions are planned. Today's session was well tolerated. Tolerance of hyperbaric oxygen therapy: Hyperbaric oxygen therapy was administered as per the facility protocol. Patient finished earlier due to planned commitments. The patient tolerated hyperbaric oxygen therapy well, without complaints or complications. Upon emergence from the hyperbaric chamber, the patient's vital signs remained stable. The patient was discharged in good condition. See documented blood glucose levels. Past Medical History Chronic Problems (Last Reviewed 08/02/18 @ 14:19 by Jocelyn Barlow) Dehiscence of closure of subcutaneous tissue (Chronic) Hallux limitus of right foot (Chronic) Abscess of right foot (Chronic) Diabetes mellitus type 2, uncontrolled, with complications (Chronic) Venous insufficiency (Chronic) Hammer toe of right foot (Chronic) Hammer toe of left foot (Chronic) Pre-ulcerative corn or callous (Chronic) Deformity of metatarsal (Chronic) Delayed wound healing (Chronic) Diabetic foot ulcer (Chronic) Chronic ulcer of left foot with fat layer exposed (Chronic) Endometriosis (Chronic) Diabetes (Chronic) 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) Ulcer of right foot with necrosis of muscle (Chronic) Obesity (BMI 30.0-34.9) (Chronic) Diabetes mellitus, type II (Chronic) Allergies/Adverse Reactions: Allergies clindamycin Allergy (Verified 08/15/18 12:04) Hives vancomycin Allergy (Verified 08/15/18 12:04) Hives/makes my heart race Home Medications: Ambulatory Orders Medication Instructions Recorded Cholecalciferol (Vitamin D3) 2,000 unit PO DAILY 03/10/18 [Vitamin D3] insulin glargine (U-100) 100 68 unit SUBCUT QHS #15 ml 08/02/18 unit/mL (3 mL) subcutaneous pen insulin lispro (U- 100) 100 14 unit SC TID #15 ml 08/02/18 unit/mL subcutaneous pen Maternal Family History: Family History (Last Reviewed 08/02/18 @ 14:19 by Jocelyn Barlow) Grandfather Diabetes Leukemia Grandmother Diabetes Mother Diabetes Hypertension Father Prostate cancer Grandfather Myocardial infarction Family History: - - Patient notes a maternal family history of diabetes. Paternal Family History: Family History (Last Reviewed 08/02/18 @ 14:19 by Jocelyn Barlow) Grandfather Diabetes Leukemia Grandmother Diabetes Mother Diabetes Hypertension Father Prostate cancer Grandfather Myocardial infarction Family History: - - Patient notes a paternal family history of prostate cancer, hypertension and diabetes. Smoking Status: Never smoker Physical Exam Vital Signs Temp Pulse Resp BP 97.8 F 104 H 18 140/76 H 10/24/18 13:36 10/24/18 13:36 10/24/18 13:36 10/24/18 13:36 General: Alert, Oriented x3, Cooperative HEENT: Atraumatic, PERRLA, TM's Clear Lungs: Clear to auscultation, Normal air movement Cardiovascular: Regular rate Psych/Mental Status: Normal Affect, Appropriate Assessment/Plan Active Problems (Last Reviewed 08/02/18 @ 14:19 by Jocelyn Barlow) Delayed wound healing (Chronic) Chronic ulcer of left foot with fat layer exposed (Chronic) Type 2 diabetes mellitus with diabetic polyneuropathy (Chronic) The patient appears to be tolerating hyperbaric oxygen therapy well, which will be continued as per the patient's medical plan. Code Visit [id number]
--- NOTE | 2018-10-25 10:05 | PCM.HBO.PN ---
History of Present Illness Presenting Chief Complaint: Diabetic left foot ulceration, Camacho Grade 3 DON COTTO is a 28 year old currently undergoing hyperbaric oxygen therapy for diabetic left foot ulceration,Camacho Grade 3 Progress: Today's session represents the 22nd of 40 planned sessions of hyperbaric oxygen therapy. Today's session was well tolerated. Tolerance of hyperbaric oxygen therapy: Hyperbaric oxygen therapy was administered as per the facility protocol. The patient tolerated hyperbaric oxygen therapy well, without complaints or complications. Upon emergence from the hyperbaric chamber, the patient's vital signs remained stable. The patient was discharged in good condition. See documented blood glucose levels. Past Medical History Chronic Problems (Last Reviewed 08/02/18 @ 14:19 by Jocelyn Barlow) Dehiscence of closure of subcutaneous tissue (Chronic) Hallux limitus of right foot (Chronic) Abscess of right foot (Chronic) Diabetes mellitus type 2, uncontrolled, with complications (Chronic) Venous insufficiency (Chronic) Hammer toe of right foot (Chronic) Hammer toe of left foot (Chronic) Pre-ulcerative corn or callous (Chronic) Deformity of metatarsal (Chronic) Delayed wound healing (Chronic) Diabetic foot ulcer (Chronic) Chronic ulcer of left foot with fat layer exposed (Chronic) Endometriosis (Chronic) Diabetes (Chronic) 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) Ulcer of right foot with necrosis of muscle (Chronic) Obesity (BMI 30.0-34.9) (Chronic) Diabetes mellitus, type II (Chronic) Allergies/Adverse Reactions: Allergies clindamycin Allergy (Verified 08/15/18 12:04) Hives vancomycin Allergy (Verified 08/15/18 12:04) Hives/makes my heart race Home Medications: Ambulatory Orders Medication Instructions Recorded Cholecalciferol (Vitamin D3) 2,000 unit PO DAILY 03/10/18 [Vitamin D3] insulin glargine (U-100) 100 68 unit SUBCUT QHS #15 ml 08/02/18 unit/mL (3 mL) subcutaneous pen insulin lispro (U- 100) 100 14 unit SC TID #15 ml 08/02/18 unit/mL subcutaneous pen Maternal Family History: Family History (Last Reviewed 08/02/18 @ 14:19 by Jocelyn Barlow) Grandfather Diabetes Leukemia Grandmother Diabetes Mother Diabetes Hypertension Father Prostate cancer Grandfather Myocardial infarction Family History: - - Patient notes a maternal family history of diabetes. Paternal Family History: Family History (Last Reviewed 08/02/18 @ 14:19 by Jocelyn Barlow) Grandfather Diabetes Leukemia Grandmother Diabetes Mother Diabetes Hypertension Father Prostate cancer Grandfather Myocardial infarction Family History: - - Patient notes a paternal family history of prostate cancer, hypertension and diabetes. Smoking Status: Never smoker Physical Exam Vital Signs Temp Pulse Resp BP 97.8 F 104 H 18 140/76 H 10/24/18 13:36 10/24/18 13:36 10/24/18 13:36 10/24/18 13:36 General: Alert, Oriented x3, Cooperative, No apparent distress HEENT: Atraumatic, Normocephalic Lungs: Clear to auscultation, Normal air movement Cardiovascular: Regular rate, Regular Rhythm Psych/Mental Status: Normal Affect Assessment/Plan Active Problems (Last Reviewed 08/02/18 @ 14:19 by Jocelyn Barlow) Delayed wound healing (Chronic) Chronic ulcer of left foot with fat layer exposed (Chronic) Type 2 diabetes mellitus with diabetic polyneuropathy (Chronic) The patient appears to be tolerating hyperbaric oxygen therapy well, which will be continued as per the patient's medical plan.
[2018-10-25 10:21] LABS: Bedside Glucose 133 mg/dL (70-110)
[2018-10-25 10:59] VITALS: BP 120/69; BP 127/83; PULSE 90; PULSE 97; RESP 18; TEMP 36.1
[2018-10-25 12:20] LABS: Bedside Glucose 99 mg/dL (70-110)
[2018-10-25 13:00] VITALS: BP 127/83; PULSE 90; RESP 16; TEMP 36.2; BMI 36.7
--- NOTE | 2018-10-25 17:06 | PN.PCM_ITS ---
(1) Diabetic ulcer of left foot with muscle involvement without evidence of necrosis Status: Chronic Current Visit: Yes Qualifiers: Diabetic foot ulcer location: midfoot Diabetes mellitus type: type 2 Qualified Code(s): E11.621 - Type 2 diabetes mellitus with foot ulcer; L97.425 - Non-pressure chronic ulcer of left heel and midfoot with muscle involvement without evidence of necrosis Code(s): E11.621 - Type 2 diabetes mellitus with foot ulcer; L97.525 - Non- pressure chronic ulcer of other part of left foot with muscle involvement without evidence of necrosis (2) Chronic ulcer of left foot with fat layer exposed Status: Chronic Current Visit: Yes Code(s): L97.522 - Non-pressure chronic ulcer of other part of left foot with fat layer exposed (3) Malnutrition Status: Chronic Current Visit: Yes Code(s): E46 - Unspecified protein- calorie malnutrition (4) Delayed wound healing Status: Chronic Current Visit: Yes Code(s): T14.8XXD - Other injury of unspecified body region, subsequent encounter (5) Type 2 diabetes mellitus with diabetic polyneuropathy Status: Chronic Current Visit: Yes Code(s): E11.42 - Type 2 diabetes mellitus with diabetic polyneuropathy Type of Wound Date of Service: 10/25/18 Chief Complaint: Diabetic left foot ulceration, Camacho Grade 3 History of Wound: This 28-year-old female with uncontrolled diabetes returns to clinic for follow-up chronic left foot ulcer. she denies subjective fever, chill, nausea, vomiting. She has been compliant with the dressing recommendations. she is no longer taking antibiotics. She does wear her forefoot offloading wide shoes. She continues hyperbaric oxygen therapy sessions and this is going well so far. It is noted her right foot ulcer sites have healed and she continues to wear the offloading wedge shoe. Progress of Wound: Status change with no deep exposed tissue (tendon) - Physical Exam Vital Signs Temp Pulse Resp BP 97.1 F L 90 16 127/83 H 10/25/18 13:00 10/25/18 13:00 10/25/18 13:00 10/25/18 13:00 General: Alert, Oriented x3, Cooperative Extremities: No cyanosis, Capillary Refill Less than 3 Seconds, No Calf Tenderness, Diminished Peripheral Pulses, Edema - Mild, - - Limited first metatarsophalangeal joint range of motion Skin: Ulcer/ Wound - No purulence, erythema, streaking, odor, or infection Wound Measurements and Assessment WC - Nurse 1 - General Ulcer Measurement Start: 10/18/18 13:49 Freq: Status: Active Protocol: Activity Type Activity Date Activity User E-Sign Co-Sign Detail Recorded Client Recorded Date Recorded By Document 10/25/18 13:00 DL [id number] 10/25/18 13:08 DL 10/25/18 13:00 Wound Center Nurse 1 [Ulcer Assessment] #1 LEFT PLANTAR -Current Size (cm) - Length 5.1 -Current Size (cm) - Width 3.4 -Current Size (cm) - Depth 0.5 -Total Square Cm 17.34 -Photo Taken No -Exudate Amt None Present -Exudate Type Serosanguineous -Wound Margin Thickened -Granulation Amt Large (67-100%) -Granulation Quality [place] -Necrosis Amt Small (1-33%) -Necrotic Tissue Type Adherent Slough -Structure Exposed N/A -Texture (Cheri-wound Skin Appearance) Callus -Moisture (Cheri-wound Skin Appearance No Abnormality ) -Color (Cheri-wound Skin Appearance) No Abnormality -Temperature (Cheri-wound Skin No Abnormality Appearance) (Pt Warm) -Tenderness on Palpation (Cheri-wound No Skin Appearance) -Ulcer Cleansing Wound Cleanser -Foul Odor after Cleansing No -Anesthetic Used 4% Lidocaine Solution - Nurse 2 - General Ulcer CM Notes Start: 10/18/18 13:49 Freq: Status: Active Protocol: Activity Type Activity Date Activity User E-Sign Co-Sign Detail Recorded Client Recorded Date Recorded By Document 10/25/18 13:20 [id number] 10/25/18 13:23 DL 10/25/18 13:20 Wound Center Nurse 2 [Procedure/Treatment] -Time 13:20 -Correct Patient Yes -Correct Side, Site, Position Yes -Correct Procedure Yes -Procedure Performed Yes -Type of Procedure Debridement -Clinical Debridement Subcutaneous -Post Debridement Size (cm) - Length 5.2 -Post Debridement Size (cm) - Width 3.5 -Post Debridement Size (cm) - Depth 0.1 -Total Square Cm 18.20 -Wound/Ulcer Outcome Not Healed -Ulcer Cleansing Rinsed/ Irrigated with Saline -Foul Odor after Cleansing No -Bioengineered Tissue No -Bleeding Controlled with Pressure -Offloading Yes -Type of Offloading Surgical Shoe -Treatment Response Procedure Tolerated Well [See Physician Procedure note for Specifics] Pain Scale: 0-10 Numeric [Pain] -Is Patient Pain Free? Yes Musculoskeletal: No Tenderness to Palpation of Joints or Extremities, Muscle Wasting Neurological: - - Lack of normal epicritic sensation light touch consistent with neuropathy Psych/Mental Status: Normal Affect, Appropriate Debridement Note Post-Debridement Measurements/Treatment WC - Nurse 2 - General Ulcer CM Notes Start: 10/18/18 13:49 Freq: Status: Active Protocol: Activity Type Activity Date Activity User E-Sign Co-Sign Detail Recorded Client Recorded Date Recorded By Document 10/18/18 16:10 JF [id number] 10/18/18 16:14 JF Document 10/25/18 13:20 DL [id number] 10/25/18 13:23 DL 10/18/18 10/25/18 16:10 13:20 Wound Center Nurse 2 #1 LEFT PLANTAR -Time 16:12 13:20 -Correct Patient Yes Yes -Correct Side, Site, Position Yes Yes -Correct Procedure Yes Yes -Procedure Performed Yes Yes -Type of Procedure Debridement Debridement -Clinical Debridement Subcutaneous Subcutaneous -Post Debridement Size (cm) - Length 4.5 5.2 -Post Debridement Size (cm) - Width 2.8 3.5 -Post Debridement Size (cm) - Depth 0.5 0.1 -Total Square Cm 12.60 18.20 -Wound/Ulcer Outcome Not Healed Not Healed -Ulcer Cleansing Rinsed/ Rinsed/ Irrigated with Irrigated with Saline Saline -Foul Odor after Cleansing No No -Bioengineered Tissue No No -Bleeding Controlled with Pressure Pressure -Offloading Yes Yes -Type of Offloading Surgical Shoe Surgical Shoe -Treatment Response Procedure Procedure Tolerated Well Tolerated Well Pain Scale: 0-10 Numeric Is Patient Pain Free? Yes Yes Wound debrided: plantar medial foot Laterality: Left Wound Grade/Stage: grade 3 Type of Debridement: Excisional debridement Anesthesia Used: 5% Lidocaine Gel Depth: in the subcutaneous layer Percentage of wound debrided: 100 Instrument Used: #15 blade Tissue Removed: fibrous, devitalized subcutaneous, biofilm, slough Severity: Fat Layer Exposed Amount of bleeding with debridement: Mild Bleeding Controlled with: Pressure Patient tolerated procedure well Assessment/Plan Active Problems (Last Reviewed 08/02/18 @ 14:19 by Jocelyn Zimmerly) Malnutrition (Chronic) Delayed wound healing (Chronic) Diabetic ulcer of left foot with muscle involvement without evidence of necrosis (Chronic) Chronic ulcer of left foot with fat layer exposed (Chronic) Type 2 diabetes mellitus with diabetic polyneuropathy (Chronic) Assessment: see above diagnoses Plan: I reviewed and discussed her care plan today. All of her ulcers to the right foot are healed today with full epithelialization. Debridement was perfo rmed today as noted in the clinical panel to the left foot. It is noted there is no tendon exposed and this is concerning. However there are no local signs of infection and the tendon appears to be healthy white without abnormalities. This will be monitored closely and further imaging and lab work-up will be considered if this deteriorates further. A dressing consisting of fibricol was applied. To change daily at home as advised to left foot. No dressing required to right foot. I recommend advanced wound healing product application to the left foot particularly with growth factors. I recommend regranix. The indication, purpose, anticipated application, healing time management and success was discussed in detail. She understands this would be performed daily at home. The prior authorization process is still pending. To keep right foot moisturized and to check daily for reopening. This is not noted at this time. To continue to offload the right foot to allow the skin to remodel prior to transfer to extra depth diabetic shoes. No local infection noted at this time; no antibiotics are recommended at this time. Her intraoperative microbiology and pathology results were reviewed. It is noted that no acute osteomyelitis was confirmed with the clearance fragment pathology specimen. There is additionally no bacterial growth noted in the clearance fragment. The bacterial growth identified in the resected third metatarsal head was adequately covered by Augmentin and this is been completed. To continue to follow-up for medical management with PCP and endocrinology. She has continued hyperbaric oxygen therapy sessions and this is going well. The patient was educated on the importance of diet on wound healing and instructed to increase protein and vitamin C intake. To use assistive devices. To continue follow-up with nutrition services. Her most recent noninvasive vascular studies were reviewed from April 2018 with bilateral ankle-brachial indices 1.23. Her results demonstrated normal arterial perfusion. Her venous duplex Doppler studies with reflux evaluation were also reviewed and the results were discussed. 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 I do recommend future vascular surgeon referral to see if intervention may be completed. She will consider venous intervention. To follow-up with the wound healing center in 1 week. Answered her questions.
[2018-10-26 13:11] LABS: Bedside Glucose 161 mg/dL (70-110)
[2018-10-26 13:36] VITALS: BP 128/77; BP 129/72; PULSE 85; PULSE 98; RESP 16; TEMP 36.1
[2018-10-26 15:30] LABS: Bedside Glucose 153 mg/dL (70-110)
--- NOTE | 2018-10-26 17:38 | PCM.HBO.PN ---
History of Present Illness Date of Service: 10/26/18 Presenting Chief Complaint: Diabetic left foot ulceration, Camacho Grade 3 DON COTTO is a 28 year old currently undergoing hyperbaric oxygen therapy for diabetic left foot ulceration,Camacho Grade 3 Progress: Today's session represents the 23rd of 40 planned sessions of hyperbaric oxygen therapy. Today's session was well tolerated. Tolerance of hyperbaric oxygen therapy: Hyperbaric oxygen therapy was administered as per the facility protocol. The patient tolerated hyperbaric oxygen therapy well, without complaints or complications. Upon emergence from the hyperbaric chamber, the patient's vital signs remained stable. The patient was discharged in good condition. See documented blood glucose levels. Past Medical History Chronic Problems (Last Reviewed 08/02/18 @ 14:19 by Jocelyn Barlow) Dehiscence of closure of subcutaneous tissue (Chronic) Hallux limitus of right foot (Chronic) Abscess of right foot (Chronic) Diabetes mellitus type 2, uncontrolled, with complications (Chronic) Venous insufficiency (Chronic) Hammer toe of right foot (Chronic) Hammer toe of left foot (Chronic) Pre-ulcerative corn or callous (Chronic) Malnutrition (Chronic) Deformity of metatarsal (Chronic) Delayed wound healing (Chronic) Diabetic ulcer of left foot with muscle involvement without evidence of necrosis (Chronic) Diabetic foot ulcer (Chronic) Chronic ulcer of left foot with fat layer exposed (Chronic) Endometriosis (Chronic) Diabetes (Chronic) 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) Ulcer of right foot with necrosis of muscle (Chronic) Obesity (BMI 30.0-34.9) (Chronic) Diabetes mellitus, type II (Chronic) Allergies/Adverse Reactions: Allergies clindamycin Allergy (Verified 08/15/18 12:04) Hives vancomycin Allergy (Verified 08/15/18 12:04) Hives/makes my heart race Home Medications: Ambulatory Orders Medication Instructions Recorded Cholecalciferol (Vitamin D3) 2,000 unit PO DAILY 03/10/18 [Vitamin D3] insulin glargine (U-100) 100 68 unit SUBCUT QHS #15 ml 08/02/18 unit/mL (3 mL) subcutaneous pen insulin lispro (U- 100) 100 14 unit SC TID #15 ml 08/02/18 unit/mL subcutaneous pen Maternal Family History: Family History (Last Reviewed 08/02/18 @ 14:19 by Jocelyn Barlow) Grandfather Diabetes Leukemia Grandmother Diabetes Mother Diabetes Hypertension Father Prostate cancer Grandfather Myocardial infarction Family History: - - Patient notes a maternal family history of diabetes. Paternal Family History: Family History (Last Reviewed 08/02/18 @ 14:19 by Jocelyn Barlow) Grandfather Diabetes Leukemia Grandmother Diabetes Mother Diabetes Hypertension Father Prostate cancer Grandfather Myocardial infarction Family History: - - Patient notes a paternal family history of prostate cancer, hypertension and diabetes. Smoking Status: Never smoker Physical Exam Vital Signs Temp Pulse Resp BP 97 F L 98 16 129/72 H 10/26/18 13:36 10/26/18 13:36 10/26/18 13:36 10/26/18 13:36 General: Alert, Oriented x3, Cooperative, No apparent distress HEENT: Atraumatic, Normocephalic, TM's Clear Lungs: Clear to auscultation, Normal air movement, No rhonchi, No wheeze, No rales Cardiovascular: Regular rate, Regular Rhythm, Normal S1, Normal S2, No murmurs Psych/Mental Status: Normal Affect, Alert and oriented to time, place, person, mood and affect Assessment/Plan Active Problems (Last Reviewed 08/02/18 @ 14:19 by Jocelyn Barlow) Malnutrition (Chronic) Delayed wound healing (Chronic) Diabetic ulcer of left foot with muscle involvement without evidence of necrosis (Chronic) Chronic ulcer of left foot with fat layer exposed (Chronic) Type 2 diabetes mellitus with diabetic polyneuropathy (Chronic) The patient appears to be tolerating hyperbaric oxygen therapy well, which will be continued as per the patient's medical plan.
[2018-10-27 12:36] LABS: Bedside Glucose 182 mg/dL (70-110)
[2018-10-27 12:58] VITALS: BP 134/7; BP 144/77; PULSE 87; PULSE 93; RESP 16; RESP 18; TEMP 36.2; TEMP 36.3
[2018-10-27 14:51] LABS: Bedside Glucose 183 mg/dL (70-110)
--- NOTE | 2018-10-27 16:47 | PCM.HBO.PN ---
History of Present Illness Date of Service: 10/27/18 Presenting Chief Complaint: Diabetic left foot ulceration, Camacho Grade 3 DON COTTO is a 28 year old currently undergoing hyperbaric oxygen therapy for diabetic left foot ulceration,Camacho Grade 3 Progress: Today's session represents the 24th of 40 planned sessions of hyperbaric oxygen therapy. Today's session was well tolerated. Tolerance of hyperbaric oxygen therapy: Hyperbaric oxygen therapy was administered as per the facility protocol at 2.0 SANA for 90 minutes. The patient tolerated hyperbaric oxygen therapy well, without complaints or complications. Upon emergence from the hyperbaric chamber, the patient's vital signs remained stable. The patient was discharged in good condition. See documented blood glucose levels. Past Medical History Chronic Problems (Last Reviewed 08/02/18 @ 14:19 by Joceyln Barlow) Dehiscence of closure of subcutaneous tissue (Chronic) Hallux limitus of right foot (Chronic) Abscess of right foot (Chronic) Diabetes mellitus type 2, uncontrolled, with complications (Chronic) Venous insufficiency (Chronic) Hammer toe of right foot (Chronic) Hammer toe of left foot (Chronic) Pre-ulcerative corn or callous (Chronic) Malnutrition (Chronic) Deformity of metatarsal (Chronic) Delayed wound healing (Chronic) Diabetic ulcer of left foot with muscle involvement without evidence of necrosis (Chronic) Diabetic foot ulcer (Chronic) Chronic ulcer of left foot with fat layer exposed (Chronic) Endometriosis (Chronic) Diabetes (Chronic) 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) Ulcer of right foot with necrosis of muscle (Chronic) Obesity (BMI 30.0-34.9) (Chronic) Diabetes mellitus, type II (Chronic) Allergies/Adverse Reactions: Allergies clindamycin Allergy (Verified 08/15/18 12:04) Hives vancomycin Allergy (Verified 08/15/18 12:04) Hives/makes my heart race Home Medications: Ambulatory Orders Medication Instructions Recorded Cholecalciferol (Vitamin D3) 2,000 unit PO DAILY 03/10/18 [Vitamin D3] insulin glargine (U-100) 100 68 unit SUBCUT QHS #15 ml 08/02/18 unit/mL (3 mL) subcutaneous pen insulin lispro (U- 100) 100 14 unit SC TID #15 ml 08/02/18 unit/mL subcutaneous pen Maternal Family History: Family History (Last Reviewed 08/02/18 @ 14:19 by Jocelyn Barlow) Grandfather Diabetes Leukemia Grandmother Diabetes Mother Diabetes Hypertension Father Prostate cancer Grandfather Myocardial infarction Family History: - - Patient notes a maternal family history of diabetes. Paternal Family History: Family History (Last Reviewed 08/02/18 @ 14:19 by Jocelyn Barlow) Grandfather Diabetes Leukemia Grandmother Diabetes Mother Diabetes Hypertension Father Prostate cancer Grandfather Myocardial infarction Family History: - - Patient notes a paternal family history of prostate cancer, hypertension and diabetes. Smoking Status: Never smoker Physical Exam Vital Signs Temp Pulse Resp BP 97.2 F L 93 18 144/77 H 10/27/18 12:58 10/27/18 12:58 10/27/18 12:58 10/27/18 12:58 General: Alert, Oriented x3, Cooperative, No apparent distress Psych/Mental Status: Normal Affect, Appropriate Assessment/Plan Active Problems (Last Reviewed 08/02/18 @ 14:19 by Jocelyn Barlow) Malnutrition (Chronic) Delayed wound healing (Chronic) Diabetic ulcer of left foot with muscle involvement without evidence of necrosis (Chronic) Chronic ulcer of left foot with fat layer exposed (Chronic) Type 2 diabetes mellitus with diabetic polyneuropathy (Chronic) The patient appears to be tolerating hyperbaric oxygen therapy well, which will be continued as per the patient's medical plan.
[2018-10-30 09:31] LABS: Bedside Glucose 151 mg/dL (70-110)
[2018-10-30 09:42] VITALS: BP 117/72; BP 125/66; PULSE 106; PULSE 91; RESP 16; RESP 18; TEMP 36.4; TEMP 36.8
[2018-10-30 11:30] LABS: Bedside Glucose 165 mg/dL (70-110)
--- NOTE | 2018-10-30 13:09 | PCM.HBO.PN ---
History of Present Illness Date of Service: 10/30/18 Presenting Chief Complaint: Diabetic left foot ulceration, Camacho Grade 3 DON COTTO is a 28 year old currently undergoing hyperbaric oxygen therapy for diabetic left foot ulceration,Camacho Grade 3 Progress: Today's session represents the 25th of 40 planned sessions of hyperbaric oxygen therapy. Today's session was well tolerated. Tolerance of hyperbaric oxygen therapy: Hyperbaric oxygen therapy was administered as per the facility protocol at 2.0 SANA for 90 minutes. The patient tolerated hyperbaric oxygen therapy well, without complaints or complications. Upon emergence from the hyperbaric chamber, the patient's vital signs remained stable. The patient was discharged in good condition. Her blood glucose before the treatment was 151 and after the treatment was 165. Past Medical History Chronic Problems (Last Reviewed 08/02/18 @ 14:19 by Jocelyn Barlow) Dehiscence of closure of subcutaneous tissue (Chronic) Hallux limitus of right foot (Chronic) Abscess of right foot (Chronic) Diabetes mellitus type 2, uncontrolled, with complications (Chronic) Venous insufficiency (Chronic) Hammer toe of right foot (Chronic) Hammer toe of left foot (Chronic) Pre-ulcerative corn or callous (Chronic) Malnutrition (Chronic) Deformity of metatarsal (Chronic) Delayed wound healing (Chronic) Diabetic ulcer of left foot with muscle involvement without evidence of necrosis (Chronic) Diabetic foot ulcer (Chronic) Chronic ulcer of left foot with fat layer exposed (Chronic) Endometriosis (Chronic) Diabetes (Chronic) 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) Ulcer of right foot with necrosis of muscle (Chronic) Obesity (BMI 30.0-34.9) (Chronic) Diabetes mellitus, type II (Chronic) Allergies/Adverse Reactions: Allergies clindamycin Allergy (Verified 08/15/18 12:04) Hives vancomycin Allergy (Verified 08/15/18 12:04) Hives/makes my heart race Home Medications: Ambulatory Orders Medication Instructions Recorded Cholecalciferol (Vitamin D3) 2,000 unit PO DAILY 03/10/18 [Vitamin D3] insulin glargine (U-100) 100 68 unit SUBCUT QHS #15 ml 08/02/18 unit/mL (3 mL) subcutaneous pen insulin lispro (U- 100) 100 14 unit SC TID #15 ml 08/02/18 unit/mL subcutaneous pen Maternal Family History: Family History (Last Reviewed 08/02/18 @ 14:19 by Jocelyn Barlow) Grandfather Diabetes Leukemia Grandmother Diabetes Mother Diabetes Hypertension Father Prostate cancer Grandfather Myocardial infarction Family History: - - Patient notes a maternal family history of diabetes. Paternal Family History: Family History (Last Reviewed 08/02/18 @ 14:19 by Jocelyn Barlow) Grandfather Diabetes Leukemia Grandmother Diabetes Mother Diabetes Hypertension Father Prostate cancer Grandfather Myocardial infarction Family History: - - Patient notes a paternal family history of prostate cancer, hypertension and diabetes. Smoking Status: Never smoker Physical Exam Vital Signs Temp Pulse Resp BP 98.3 F 106 H 18 117/72 10/30/18 09:42 10/30/18 09:42 10/30/18 09:42 10/30/18 09:42 Assessment/Plan Active Problems (Last Reviewed 08/02/18 @ 14:19 by Jocelyn Barlow) Malnutrition (Chronic) Delayed wound healing (Chronic) Diabetic ulcer of left foot with muscle involvement without evidence of necrosis (Chronic) Chronic ulcer of left foot with fat layer exposed (Chronic) Type 2 diabetes mellitus with diabetic polyneuropathy (Chronic)
[2018-10-31 09:20] LABS: Bedside Glucose 171 mg/dL (70-110)
[2018-10-31 09:43] VITALS: BP 116/68; BP 132/72; PULSE 108; PULSE 97; RESP 16; RESP 18; TEMP 36.5; TEMP 36.8
[2018-10-31 11:26] LABS: Bedside Glucose 197 mg/dL (70-110)
--- NOTE | 2018-10-31 11:43 | PCM.HBO.PN ---
History of Present Illness Presenting Chief Complaint: Diabetic left foot ulceration, Camacho Grade 3 DON COTTO is a 28 year old currently undergoing hyperbaric oxygen therapy for diabetic left foot ulceration,Camacho Grade 3 Progress: Today's session represents the 26th of 40 planned sessions of hyperbaric oxygen therapy. Today's session was well tolerated. Tolerance of hyperbaric oxygen therapy: Hyperbaric oxygen therapy was administered as per the facility protocol at 2.0 SANA for 90 minutes, and no air breaks. The patient tolerated hyperbaric oxygen therapy well, without complaints or complications. Upon emergence from the hyperbaric chamber, the patient's vital signs remained stable. The patient was discharged in good condition. See documented blood glucose levels. Past Medical History Chronic Problems (Last Reviewed 08/02/18 @ 14:19 by Jocelyn Barlwo) Dehiscence of closure of subcutaneous tissue (Chronic) Hallux limitus of right foot (Chronic) Abscess of right foot (Chronic) Diabetes mellitus type 2, uncontrolled, with complications (Chronic) Venous insufficiency (Chronic) Hammer toe of right foot (Chronic) Hammer toe of left foot (Chronic) Pre-ulcerative corn or callous (Chronic) Malnutrition (Chronic) Deformity of metatarsal (Chronic) Delayed wound healing (Chronic) Diabetic ulcer of left foot with muscle involvement without evidence of necrosis (Chronic) Diabetic foot ulcer (Chronic) Chronic ulcer of left foot with fat layer exposed (Chronic) Endometriosis (Chronic) Diabetes (Chronic) 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) Ulcer of right foot with necrosis of muscle (Chronic) Obesity (BMI 30.0-34.9) (Chronic) Diabetes mellitus, type II (Chronic) Allergies/Adverse Reactions: Allergies clindamycin Allergy (Verified 08/15/18 12:04) Hives vancomycin Allergy (Verified 08/15/18 12:04) Hives/makes my heart race Home Medications: Ambulatory Orders Medication Instructions Recorded Cholecalciferol (Vitamin D3) 2,000 unit PO DAILY 03/10/18 [Vitamin D3] insulin glargine (U-100) 100 68 unit SUBCUT QHS #15 ml 08/02/18 unit/mL (3 mL) subcutaneous pen insulin lispro (U- 100) 100 14 unit SC TID #15 ml 08/02/18 unit/mL subcutaneous pen Maternal Family History: Family History (Last Reviewed 08/02/18 @ 14:19 by Jocelyn Barlow) Grandfather Diabetes Leukemia Grandmother Diabetes Mother Diabetes Hypertension Father Prostate cancer Grandfather Myocardial infarction Family History: - - Patient notes a maternal family history of diabetes. Paternal Family History: Family History (Last Reviewed 08/02/18 @ 14:19 by Jocelyn Barlow) Grandfather Diabetes Leukemia Grandmother Diabetes Mother Diabetes Hypertension Father Prostate cancer Grandfather Myocardial infarction Family History: - - Patient notes a paternal family history of prostate cancer, hypertension and diabetes. Smoking Status: Never smoker Physical Exam Vital Signs Temp Pulse Resp BP 98.3 F 108 H 18 132/72 H 10/31/18 09:43 10/31/18 09:43 10/31/18 09:43 10/31/18 09:43 General: Alert, Oriented x3, Cooperative, No apparent distress, Well developed, Well nourished HEENT: Atraumatic, PERRLA, EOMI, Normocephalic Lungs: Normal air movement Psych/Mental Status: Normal Affect, Appropriate, Alert and oriented to time, place, person, mood and affect Assessment/Plan Active Problems (Last Reviewed 08/02/18 @ 14:19 by Jocelyn Barlow) Malnutrition (Chronic) Delayed wound healing (Chronic) Diabetic ulcer of left foot with muscle involvement without evidence of necrosis (Chronic) Chronic ulcer of left foot with fat layer exposed (Chronic) Type 2 diabetes mellitus with diabetic polyneuropathy (Chronic) The patient appears to be tolerating hyperbaric oxygen therapy well, which will be continued as per the patient's medical plan.
[2018-11-01 12:00] VITALS: BP 119/67; BP 127/76; PULSE 115; PULSE 95; RESP 16; RESP 18; TEMP 36.4; TEMP 36.7
--- NOTE | 2018-11-01 12:30 | PCM.HBO.PN ---
History of Present Illness Date of Service: 11/01/18 Presenting Chief Complaint: Diabetic left foot ulceration, Camacho Grade 3 DON COTTO is a 28 year old currently undergoing hyperbaric oxygen therapy for diabetic left foot ulceration,Camacho Grade 3 Progress: Today's session represents the 27th of 40 planned sessions of hyperbaric oxygen therapy. Today's session was well tolerated. Tolerance of hyperbaric oxygen therapy: Hyperbaric oxygen therapy was administered as per the facility protocol at 2.0 SANA for 90 minutes. The patient tolerated hyperbaric oxygen therapy well, without complaints or complications. Upon emergence from the hyperbaric chamber, the patient's vital signs remained stable. The patient was discharged in good condition. See documented blood glucose levels. Past Medical History Chronic Problems (Last Reviewed 08/02/18 @ 14:19 by Jocelyn Barlow) Dehiscence of closure of subcutaneous tissue (Chronic) Hallux limitus of right foot (Chronic) Abscess of right foot (Chronic) Diabetes mellitus type 2, uncontrolled, with complications (Chronic) Venous insufficiency (Chronic) Hammer toe of right foot (Chronic) Hammer toe of left foot (Chronic) Pre-ulcerative corn or callous (Chronic) Malnutrition (Chronic) Deformity of metatarsal (Chronic) Delayed wound healing (Chronic) Diabetic ulcer of left foot with muscle involvement without evidence of necrosis (Chronic) Diabetic foot ulcer (Chronic) Chronic ulcer of left foot with fat layer exposed (Chronic) Endometriosis (Chronic) Diabetes (Chronic) 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) Ulcer of right foot with necrosis of muscle (Chronic) Obesity (BMI 30.0-34.9) (Chronic) Diabetes mellitus, type II (Chronic) Allergies/Adverse Reactions: Allergies clindamycin Allergy (Verified 08/15/18 12:04) Hives vancomycin Allergy (Verified 08/15/18 12:04) Hives/makes my heart race Home Medications: Ambulatory Orders Medication Instructions Recorded Cholecalciferol (Vitamin D3) 2,000 unit PO DAILY 03/10/18 [Vitamin D3] insulin glargine (U-100) 100 68 unit SUBCUT QHS #15 ml 08/02/18 unit/mL (3 mL) subcutaneous pen insulin lispro (U- 100) 100 14 unit SC TID #15 ml 08/02/18 unit/mL subcutaneous pen Maternal Family History: Family History (Last Reviewed 08/02/18 @ 14:19 by Jocelyn Barlow) Grandfather Diabetes Leukemia Grandmother Diabetes Mother Diabetes Hypertension Father Prostate cancer Grandfather Myocardial infarction Family History: - - Patient notes a maternal family history of diabetes. Paternal Family History: Family History (Last Reviewed 08/02/18 @ 14:19 by Jocelyn Barlow) Grandfather Diabetes Leukemia Grandmother Diabetes Mother Diabetes Hypertension Father Prostate cancer Grandfather Myocardial infarction Family History: - - Patient notes a paternal family history of prostate cancer, hypertension and diabetes. Smoking Status: Never smoker Physical Exam Vital Signs Temp Pulse Resp BP 98.1 F 115 H 18 119/67 11/01/18 12:00 11/01/18 12:00 11/01/18 12:00 11/01/18 12:00 General: Alert, Oriented x3, Cooperative, No apparent distress HEENT: Atraumatic, TM's Clear Lungs: Clear to auscultation, Normal air movement Cardiovascular: Regular rate, Regular Rhythm Psych/Mental Status: Normal Affect, Appropriate, Alert and oriented to time, place, person, mood and affect Assessment/Plan Active Problems (Last Reviewed 08/02/18 @ 14:19 by Jocelyn Barlow) Malnutrition (Chronic) Delayed wound healing (Chronic) Diabetic ulcer of left foot with muscle involvement without evidence of necrosis (Chronic) Chronic ulcer of left foot with fat layer exposed (Chronic) Type 2 diabetes mellitus with diabetic polyneuropathy (Chronic) The patient appears to be tolerating hyperbaric oxygen therapy well, which will be continued as per the patient's medical plan.
[2018-11-01 13:02] LABS: Bedside Glucose 131 mg/dL (70-110)
[2018-11-01 13:51] LABS: Bedside Glucose 128 mg/dL (70-110)
[2018-11-01 14:03] VITALS: BP 127/76; PULSE 95; RESP 16; TEMP 36.4; BMI 36.7
--- NOTE | 2018-11-01 17:39 | PCM.WC.PN ---
(1) Ulcer of right foot with fat layer exposed Status: Acute Current Visit: Yes Code(s): L97.512 - Non-pressure chronic ulcer of other part of right foot with fat layer exposed (2) Diabetic ulcer of left foot with muscle involvement without evidence of necrosis Status: Chronic Current Visit: Yes Qualifiers: Diabetic foot ulcer location: midfoot Diabetes mellitus type: type 2 Qualified Code(s): E11.621 - Type 2 diabetes mellitus with foot ulcer; L97.425 - Non-pressure chronic ulcer of left heel and midfoot with muscle involvement without evidence of necrosis Code(s): E11.621 - Type 2 diabetes mellitus with foot ulcer; L97.525 - Non-pressure chronic ulcer of other part of left foot with muscle involvement without evidence of necrosis (3) Chronic ulcer of left foot with fat layer exposed Status: Chronic Current Visit: Yes Code(s): L97.522 - Non-pressure chronic ulcer of other part of left foot with fat layer exposed (4) Malnutrition Status: Chronic Current Visit: Yes Code(s): E46 - Unspecified protein-calorie malnutrition (5) Delayed wound healing Status: Chronic Current Visit: Yes Code(s): T14.8XXD - Other injury of unspecified body region, subsequent encounter (6) Type 2 diabetes mellitus with diabetic polyneuropathy Status: Chronic Current Visit: Yes Code(s): E11.42 - Type 2 diabetes mellitus with diabetic polyneuropathy Type of Wound Date of Service: 11/01/18 Chief Complaint: Diabetic left foot ulceration, Camacho Grade 3 History of Wound: This 28-year-old female with uncontrolled diabetes returns to clinic for follow-up chronic left foot ulcer. she denies subjective fever, chill, nausea, vomiting. She has been compliant with the dressing recommendations. she is no longer taking antibiotics. She does wear her forefoot offloading wide shoes. She continues hyperbaric oxygen therapy sessions and this is going well so far. It is noted she does have a new opening on her right foot with an onset of 3 days ago. She denies specific trauma. She did have previous blister and this has developed. There is no redness or odor. Progress of Wound: Status change with no deep exposed tissue (tendon) continued. New right foot ulcer - Physical Exam Vital Signs Temp Pulse Resp BP 97.5 F L 95 16 127/76 H 11/01/18 14:03 11/01/18 14:03 11/01/18 14:03 11/01/18 14:03 General: Alert, Oriented x3, Cooperative Extremities: No cyanosis, Capillary Refill Less than 3 Seconds, No Calf Tenderness, Diminished Peripheral Pulses, Edema, - - Dorsal contracture lesser toes and prominent metatarsal heads bilateral Skin: Ulcer/ Wound - No purulence, erythema, streaking, odor, or infection bilateral. Skin discontinuity new sub-first metatarsal head of the right foot. The plantar medial left ulcer site is granular with stable healthy flexor tendon exposed. No deep probing to bone. The peripheral skin is hairless and atrophic. Wound Measurements and Assessment WC - Nurse 1 - General Ulcer Measurement Start: 10/18/18 13:49 Freq: Status: Active Protocol: Activity Type Activity Date Activity User E-Sign Co-Sign Detail Recorded Client Recorded Date Recorded By Document 11/01/18 14:03 [id number] 11/01/18 14:10 11/01/18 14:03 Wound Center Nurse 1 [Ulcer Assessment] #1 LEFT PLANTAR -Combined with other wound No -Current Size (cm) - Length 4.2 -Current Size (cm) - Width 2.6 -Current Size (cm) - Depth 0.3 -Total Square Cm 10.92 -Photo Taken No -Epithelialization None Present -Tunneling No -Undermining/Tunneling No -Circular Undermining No -Exudate Amt Medium -Exudate Type Serosanguineous -Wound Margin Distinct, Outline Attached -Granulation Amt Large (67-100%) -Granulation Quality [place] Red -Slough/Fibrin Yes -Necrosis Amt None Present (0 %) -Necrotic Tissue Type Adherent Slough -Structure Exposed None/Limited to Skin Breakdown -Texture (Cheri-wound Skin Appearance) No Abnormality Scarring -Moisture (Cheri-wound Skin Appearance No Abnormality ) Assessed -Color (Cheri-wound Skin Appearance) No Abnormality Assessed -Temperature (Cheri-wound Skin No Abnormality Appearance) (Pt Warm) -Tenderness on Palpation (Cheri-wound No Skin Appearance) -Ulcer Cleansing Rinsed/ Irrigated with Saline -Foul Odor after Cleansing No -Anesthetic Used 4% Lidocaine Solution [Edema Assessment] -Lower Limb Edema Present NA WC - Nurse 2 - General Ulcer CM Notes Start: 10/18/18 13:49 Freq: Status: Active Protocol: Activity Type Activity Date Activity User E-Sign Co-Sign Detail Recorded Client Recorded Date Recorded By Document 11/01/18 14:30 AN [id number] 11/01/18 14:35 AN 11/01/18 14:30 Wound Center Nurse 2 [Procedure/Treatment] #1 LEFT PLANTAR -Time 14:33 -Correct Patient Yes -Correct Side, Site, Position Yes -Correct Procedure Yes -Procedure Performed Yes -Type of Procedure Debridement -Clinical Debridement Subcutaneous -Post Debridement Size (cm) - Length 4.3 -Post Debridement Size (cm) - Width 0.7 -Post Debridement Size (cm) - Depth 0.3 -Total Square Cm 3.01 -Wound/Ulcer Outcome Not Healed -Offloading Yes -Type of Offloading Wedge Shoe -Treatment Response Procedure Tolerated Well [See Physician Procedure note for Specifics] Pain Scale: 0-10 Numeric [Pain] -Is Patient Pain Free? Yes Musculoskeletal: No Tenderness to Palpation of Joints or Extremities, Muscle Wasting, - - Compartments soft bilateral. No fluctuance or bogginess on palpation bilateral Neurological: - - Lack of epicritic sensation light touch bilateral lower extremities Psych/Mental Status: Normal Affect, Appropriate Debridement Note Post-Debridement Measurements/Treatment WC - Nurse 2 - General Ulcer CM Notes Start: 10/18/18 13:49 Freq: Status: Active Protocol: Activity Type Activity Date Activity User E-Sign Co-Sign Detail Recorded Client Recorded Date Recorded By Document 10/18/18 16:10 [id number] 10/18/18 16:14 Document 10/25/18 13:20 DL [id number] 10/25/18 13:23 DL Document 11/01/18 14:30 AN [id number] 11/01/18 14:35 AN 10/18/18 10/25/18 11/01/18 16:10 13:20 14:30 Wound Center Nurse 2 #1 LEFT PLANTAR -Time 16:12 13:20 14:33 -Correct Patient Yes Yes Yes -Correct Side, Site, Position Yes Yes Yes -Correct Procedure Yes Yes Yes -Procedure Performed Yes Yes Yes -Type of Procedure Debridement Debridement Debridement -Clinical Debridement Subcutaneous Subcutaneous Subcutaneous -Post Debridement Size (cm) - Length 4.5 5.2 4.3 -Post Debridement Size (cm) - Width 2.8 3.5 0.7 -Post Debridement Size (cm) - Depth 0.5 0.1 0.3 -Total Square Cm 12.60 18.20 3.01 -Wound/Ulcer Outcome Not Healed Not Healed Not Healed -Ulcer Cleansing Rinsed/ Rinsed/ Irrigated with Irrigated with Saline Saline -Foul Odor after Cleansing No No -Bioengineered Tissue No No -Bleeding Controlled with Pressure Pressure -Offloading Yes Yes Yes -Type of Offloading Surgical Shoe Surgical Shoe Wedge Shoe -Treatment Response Procedure Procedure Procedure Tolerated Well Tolerated Well Tolerated Well Pain Scale: 0-10 Numeric Is Patient Pain Free? Yes Yes Yes Wound debrided: sub 1st metatarsal head Laterality: Right Wound Grade/Stage: grade 1 Type of Debridement: Excisional debridement Anesthesia Used: 5% Lidocaine Gel Depth: in the subcutaneous layer Percentage of wound debrided: 100 Instrument Used: #15 blade Tissue Removed: fibrous, devitalized subcutaneous, biofilm, slough Severity: Fat Layer Exposed Amount of bleeding with debridement: Mild Bleeding Controlled with: Pressure Patient tolerated procedure well - Additional Wound Wound debrided: plantar medial foot Laterality: Left Wound Grade/Stage: grade 3 Type of Debridement: Excisional debridement Anesthesia Used: 5% Lidocaine Gel Depth: in the subcutaneous layer Percentage of wound debrided: 100 Instrument Used: #15 blade Tissue Removed: fibrous, devitalized subcutaneous, biofilm, slough Severity: Fat Layer Exposed Amount of bleeding with debridement: Mild Bleeding Controlled with: Pressure Patient tolerated procedure: Patient tolerated procedure well Assessment/Plan Active Problems (Last Reviewed 08/02/18 @ 14:19 by Jocelyn Barlow) Malnutrition (Chronic) Delayed wound healing (Chronic) Diabetic ulcer of left foot with muscle involvement without evidence of necrosis (Chronic) Ulcer of right foot with fat layer exposed (Acute) Chronic ulcer of left foot with fat layer exposed (Chronic) Type 2 diabetes mellitus with diabetic polyneuropathy (Chronic) Assessment: see above diagnoses Plan: I reviewed and discussed her care plan today. All of her ulcers to the right foot are healed today with full epithelialization. Debridement was performed today as noted in the clinical panel to the left foot. It is noted there is newer tendon exposed and this is concerning. However there are no local signs of infection and the tendon appears to be healthy white without abnormalities. This will be monitored closely and further imaging and lab work-up will be considered if this deteriorates further. A dressing consisting of fibricol was applied. To change daily at home as advised to left foot. A new grade 1 ulcers noted to the right foot and she can change this daily with Aquacel also. To continue with bilateral offloading shoes. I recommend advanced wound healing product application to the left foot particularly with growth factors. I recommend regranix. The indication, purpose, anticipated application, healing time management and success was discussed in detail. She understands this would be performed daily at home. The prior authorization process is still pending. To keep right foot moisturized and to check daily for reopening. This is not noted at this time. To continue to offload the right foot to allow the skin to remodel prior to transfer to extra depth diabetic shoes. No local infection noted at this time; no antibiotics are recommended at this time. Her intraoperative microbiology and pathology results were reviewed. It is noted that no acute osteomyelitis was confirmed with the clearance fragment pathology specimen. There is additionally no bacterial growth noted in the clearance fragment. The bacterial growth identified in the resected third metatarsal head was adequately covered by Augmentin and this is been completed. To continue to follow-up for medical management with PCP and endocrinology. She has continued hyperbaric oxygen therapy sessions and this is going well. The patient was educated on the importance of diet on wound healing and instructed to increase protein and vitamin C intake. To use assistive devices. To continue follow-up with nutrition services. Her most recent noninvasive vascular studies were reviewed from April 2018 with bilateral ankle-brachial indices 1.23. Her results demonstrated normal arterial perfusion. Her venous duplex Doppler studies with reflux evaluation were also reviewed and the results were discussed. 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 I do recommend future vascular surgeon referral to see if intervention may be completed. She will consider venous intervention. To follow-up with the wound healing center in 1 week. Answered her questions.
[2018-11-02 10:03] VITALS: BP 110/68; BP 111/58; PULSE 102; PULSE 90; RESP 16; TEMP 36.3; TEMP 36.7
[2018-11-02 10:06] LABS: Bedside Glucose 115 mg/dL (70-110)
[2018-11-02 10:06] LABS: Bedside Glucose 187 mg/dL (70-110)
[2018-11-02 11:51] LABS: Bedside Glucose 174 mg/dL (70-110)
--- NOTE | 2018-11-02 13:42 | PCM.HBO.PN ---
History of Present Illness Presenting Chief Complaint: Diabetic left foot ulceration, Camacho Grade 3 DON COTTO is a 28 year old currently undergoing hyperbaric oxygen therapy for diabetic left foot ulceration,Camacho Grade 3 Progress: Today's session represents the 28th of 40 planned sessions of hyperbaric oxygen therapy. Today's session was well tolerated. Tolerance of hyperbaric oxygen therapy: Hyperbaric oxygen therapy was administered as per the facility protocol at 2.0 SANA for 90 minutes. The patient tolerated hyperbaric oxygen therapy well, without complaints or complications. Upon emergence from the hyperbaric chamber, the patient's vital signs remained stable. The patient was discharged in good condition. See documented blood glucose levels. Past Medical History Chronic Problems (Last Reviewed 08/02/18 @ 14:19 by Jocelyn Barlow) Dehiscence of closure of subcutaneous tissue (Chronic) Hallux limitus of right foot (Chronic) Abscess of right foot (Chronic) Diabetes mellitus type 2, uncontrolled, with complications (Chronic) Venous insufficiency (Chronic) Hammer toe of right foot (Chronic) Hammer toe of left foot (Chronic) Pre-ulcerative corn or callous (Chronic) Malnutrition (Chronic) Deformity of metatarsal (Chronic) Delayed wound healing (Chronic) Diabetic ulcer of left foot with muscle involvement without evidence of necrosis (Chronic) Ulcer of right foot with fat layer exposed (Chronic) Diabetic foot ulcer (Chronic) Chronic ulcer of left foot with fat layer exposed (Chronic) Endometriosis (Chronic) Diabetes (Chronic) 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) Ulcer of right foot with necrosis of muscle (Chronic) Obesity (BMI 30.0-34.9) (Chronic) Diabetes mellitus, type II (Chronic) Allergies/Adverse Reactions: Allergies clindamycin Allergy (Verified 08/15/18 12:04) Hives vancomycin Allergy (Verified 08/15/18 12:04) Hives/makes my heart race Home Medications: Ambulatory Orders Medication Instructions Recorded Cholecalciferol (Vitamin D3) 2,000 unit PO DAILY 03/10/18 [Vitamin D3] insulin glargine (U-100) 100 68 unit SUBCUT QHS #15 ml 08/02/18 unit/mL (3 mL) subcutaneous pen insulin lispro (U- 100) 100 14 unit SC TID #15 ml 08/02/18 unit/mL subcutaneous pen Maternal Family History: Family History (Last Reviewed 08/02/18 @ 14:19 by Jocelyn Barlow) Grandfather Diabetes Leukemia Grandmother Diabetes Mother Diabetes Hypertension Father Prostate cancer Grandfather Myocardial infarction Family History: - - Patient notes a maternal family history of diabetes. Paternal Family History: Family History (Last Reviewed 08/02/18 @ 14:19 by Jocelyn Barlow) Grandfather Diabetes Leukemia Grandmother Diabetes Mother Diabetes Hypertension Father Prostate cancer Grandfather Myocardial infarction Family History: - - Patient notes a paternal family history of prostate cancer, hypertension and diabetes. Smoking Status: Never smoker Physical Exam Vital Signs Temp Pulse Resp BP 98.1 F 102 H 16 111/58 L 11/02/18 10:03 11/02/18 10:03 11/02/18 10:03 11/02/18 10:03 General: Alert, Oriented x3, Cooperative, No apparent distress HEENT: Atraumatic, Normocephalic, TM's Clear Lungs: Normal air movement Psych/Mental Status: Normal Affect Assessment/Plan Active Problems (Last Reviewed 08/02/18 @ 14:19 by Jocelyn Barlow) Malnutrition (Chronic) Delayed wound healing (Chronic) Diabetic ulcer of left foot with muscle involvement without evidence of necrosis (Chronic) Ulcer of right foot with fat layer exposed (Chronic) Chronic ulcer of left foot with fat layer exposed (Chronic) Type 2 diabetes mellitus with diabetic polyneuropathy (Chronic) The patient appears to be tolerating hyperbaric oxygen therapy well, which will be continued as per the patient's medical plan.
[2018-11-03 08:10] LABS: Bedside Glucose 177 mg/dL (70-110)
[2018-11-03 08:33] VITALS: BP 109/74; BP 118/67; PULSE 106; PULSE 94; RESP 16; RESP 18; TEMP 36.3; TEMP 36.6
--- NOTE | 2018-11-03 10:03 | PCM.HBO.PN ---
History of Present Illness Presenting Chief Complaint: Diabetic left foot ulceration, Camacho Grade 3 DON COTTO is a 28 year old currently undergoing hyperbaric oxygen therapy for diabetic left foot ulceration,Camacho Grade 3 Progress: Today's session represents the 29th of 40 planned sessions of hyperbaric oxygen therapy. Today's session was well tolerated. Tolerance of hyperbaric oxygen therapy: Hyperbaric oxygen therapy was administered as per the facility protocol at 2.0 SANA for 90 minutes. The patient tolerated hyperbaric oxygen therapy well, without complaints or complications. Upon emergence from the hyperbaric chamber, the patient's vital signs remained stable. The patient was discharged in good condition. See documented blood glucose levels. Past Medical History Chronic Problems (Last Reviewed 08/02/18 @ 14:19 by Jocelyn Barlow) Dehiscence of closure of subcutaneous tissue (Chronic) Hallux limitus of right foot (Chronic) Abscess of right foot (Chronic) Diabetes mellitus type 2, uncontrolled, with complications (Chronic) Venous insufficiency (Chronic) Hammer toe of right foot (Chronic) Hammer toe of left foot (Chronic) Pre-ulcerative corn or callous (Chronic) Malnutrition (Chronic) Deformity of metatarsal (Chronic) Delayed wound healing (Chronic) Diabetic ulcer of left foot with muscle involvement without evidence of necrosis (Chronic) Ulcer of right foot with fat layer exposed (Chronic) Diabetic foot ulcer (Chronic) Chronic ulcer of left foot with fat layer exposed (Chronic) Endometriosis (Chronic) Diabetes (Chronic) 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) Ulcer of right foot with necrosis of muscle (Chronic) Obesity (BMI 30.0-34.9) (Chronic) Diabetes mellitus, type II (Chronic) Allergies/Adverse Reactions: Allergies clindamycin Allergy (Verified 08/15/18 12:04) Hives vancomycin Allergy (Verified 08/15/18 12:04) Hives/makes my heart race Home Medications: Ambulatory Orders Medication Instructions Recorded Cholecalciferol (Vitamin D3) 2,000 unit PO DAILY 03/10/18 [Vitamin D3] insulin glargine (U-100) 100 68 unit SUBCUT QHS #15 ml 08/02/18 unit/mL (3 mL) subcutaneous pen insulin lispro (U- 100) 100 14 unit SC TID #15 ml 08/02/18 unit/mL subcutaneous pen Maternal Family History: Family History (Last Reviewed 08/02/18 @ 14:19 by Jocelyn Barlow) Grandfather Diabetes Leukemia Grandmother Diabetes Mother Diabetes Hypertension Father Prostate cancer Grandfather Myocardial infarction Family History: - - Patient notes a maternal family history of diabetes. Paternal Family History: Family History (Last Reviewed 08/02/18 @ 14:19 by Jocelyn Barlow) Grandfather Diabetes Leukemia Grandmother Diabetes Mother Diabetes Hypertension Father Prostate cancer Grandfather Myocardial infarction Family History: - - Patient notes a paternal family history of prostate cancer, hypertension and diabetes. Smoking Status: Never smoker Physical Exam Vital Signs Temp Pulse Resp BP 97.3 F L 106 H 18 109/74 11/03/18 08:33 11/03/18 08:33 11/03/18 08:33 11/03/18 08:33 Assessment/Plan Active Problems (Last Reviewed 08/02/18 @ 14:19 by Jocelyn Barlow) Malnutrition (Chronic) Delayed wound healing (Chronic) Diabetic ulcer of left foot with muscle involvement without evidence of necrosis (Chronic) Ulcer of right foot with fat layer exposed (Chronic) Chronic ulcer of left foot with fat layer exposed (Chronic) Type 2 diabetes mellitus with diabetic polyneuropathy (Chronic) The patient appears to be tolerating hyperbaric oxygen therapy well, which will be continued as per the patient's medical plan.
[2018-11-03 10:11] LABS: Bedside Glucose 213 mg/dL (70-110)
[2018-11-07 08:16] LABS: Bedside Glucose 158 mg/dL (70-110)
[2018-11-07 08:43] VITALS: BP 117/67; BP 135/62; PULSE 105; PULSE 96; RESP 16; RESP 18; TEMP 36.4; TEMP 36.6
[2018-11-07 10:26] LABS: Bedside Glucose 116 mg/dL (70-110)
--- NOTE | 2018-11-07 10:35 | PCM.HBO.PN ---
History of Present Illness Presenting Chief Complaint: Diabetic left foot ulceration, Camacho Grade 3 DON COTTO is a 28 year old currently undergoing hyperbaric oxygen therapy for diabetic left foot ulceration,Camacho Grade 3 Progress: Today's session represents the 30th of 40 planned sessions of hyperbaric oxygen therapy. Today's session was well tolerated. Tolerance of hyperbaric oxygen therapy: Hyperbaric oxygen therapy was administered as per the facility protocol at 2.0 SANA for 106 minutes. The patient tolerated hyperbaric oxygen therapy well, without complaints or complications. Upon emergence from the hyperbaric chamber, the patient's vital signs remained stable. The patient was discharged in good condition. See documented blood glucose levels. The post-HBO glucose level was 116. Past Medical History Chronic Problems (Last Reviewed 08/02/18 @ 14:19 by Jocelyn Barlow) Dehiscence of closure of subcutaneous tissue (Chronic) Hallux limitus of right foot (Chronic) Abscess of right foot (Chronic) Diabetes mellitus type 2, uncontrolled, with complications (Chronic) Venous insufficiency (Chronic) Hammer toe of right foot (Chronic) Hammer toe of left foot (Chronic) Pre-ulcerative corn or callous (Chronic) Malnutrition (Chronic) Deformity of metatarsal (Chronic) Delayed wound healing (Chronic) Diabetic ulcer of left foot with muscle involvement without evidence of necrosis (Chronic) Diabetic foot ulcer (Chronic) Chronic ulcer of left foot with fat layer exposed (Chronic) Endometriosis (Chronic) Diabetes (Chronic) 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) Ulcer of right foot with necrosis of muscle (Chronic) Obesity (BMI 30.0-34.9) (Chronic) Diabetes mellitus, type II (Chronic) Allergies/Adverse Reactions: Allergies clindamycin Allergy (Verified 08/15/18 12:04) Hives vancomycin Allergy (Verified 08/15/18 12:04) Hives/makes my heart race Home Medications: Ambulatory Orders Medication Instructions Recorded Cholecalciferol (Vitamin D3) 2,000 unit PO DAILY 03/10/18 [Vitamin D3] insulin glargine (U-100) 100 68 unit SUBCUT QHS #15 ml 08/02/18 unit/mL (3 mL) subcutaneous pen insulin lispro (U- 100) 100 14 unit SC TID #15 ml 08/02/18 unit/mL subcutaneous pen Maternal Family History: Family History (Last Reviewed 08/02/18 @ 14:19 by Jocelyn Barlow) Grandfather Diabetes Leukemia Grandmother Diabetes Mother Diabetes Hypertension Father Prostate cancer Grandfather Myocardial infarction Family History: - - Patient notes a maternal family history of diabetes. Paternal Family History: Family History (Last Reviewed 08/02/18 @ 14:19 by Jocelyn Barlow) Grandfather Diabetes Leukemia Grandmother Diabetes Mother Diabetes Hypertension Father Prostate cancer Grandfather Myocardial infarction Family History: - - Patient notes a paternal family history of prostate cancer, hypertension and diabetes. Smoking Status: Never smoker Physical Exam Vital Signs Temp Pulse Resp BP 97.9 F 105 H 18 135/62 H 11/07/18 08:43 11/07/18 08:43 11/07/18 08:43 11/07/18 08:43 General: Alert, Oriented x3, Cooperative, No apparent distress, Well developed, Well nourished HEENT: Atraumatic, PERRLA, EOMI, Normocephalic Lungs: Normal air movement Psych/Mental Status: Normal Affect, Appropriate, Alert and oriented to time, place, person, mood and affect Assessment/Plan Active Problems (Last Reviewed 08/02/18 @ 14:19 by Jocelyn Barlow) Malnutrition (Chronic) Delayed wound healing (Chronic) Diabetic ulcer of left foot with muscle involvement without evidence of necrosis (Chronic) Ulcer of right foot with fat layer exposed (Acute) Chronic ulcer of left foot with fat layer exposed (Chronic) Type 2 diabetes mellitus with diabetic polyneuropathy (Chronic) Patient appears to be tolerating hyperbaric oxygen therapy well, which will continue as per the patient's medical plan.
[2018-11-08 09:10] LABS: Bedside Glucose 259 mg/dL (70-110)
[2018-11-08 09:13] VITALS: BP 130/78; PULSE 107; RESP 16; TEMP 36.3; BMI 36.7
[2018-11-08 10:11] LABS: Bedside Glucose 204 mg/dL (70-110)
[2018-11-08 10:17] VITALS: BP 121/58; BP 130/78; PULSE 107; PULSE 96; RESP 16; TEMP 36.3; TEMP 36.8
[2018-11-08 12:10] LABS: Bedside Glucose 134 mg/dL (70-110)
--- NOTE | 2018-11-08 12:40 | RAD_ITS ---
STUDY: X-RAY - LEFT FOOT CLINICAL: Female, 28 years old. Chronic foot ulcer TECHNIQUE: 3 view(s) of the foot. COMPARISON: None. FINDINGS: The first, second, third and fifth rays are normal. There is a deformity in the proximal half of the proximal phalanx of the fourth toe and in the distal half of the fourth metatarsal bone most likely from previous surgery or previous infection. There is soft tissue swelling of the dorsum of the foot. A 1.6 cm area of ulceration is seen at the distal plantar surface of the foot RAD/Foot min 3 Views IMPRESSION: No evidence of osteomyelitis. No fracture. A deformity involving the proximal half of the proximal phalanx of the fourth toe and the distal half of the fourth metatarsal bone. These changes may be from chronic infection or previous surgery. A 1.6 cm area of ulceration in the plantar surface of the forefoot Electronically Signed: Jere Hameed MD at 6:55 EDT Tel , Service support ,
[2018-11-08 12:46] LABS: M R Staph aureus DNA By PCR Negative (Negative); Probe Check PASS; Specimen Processing Control PASS; Staph aureus DNA By PCR POSITIVE (Negative)
[2018-11-08 13:06] LABS: Erythrocyte Sedimentation Rate 77 mm/hr (0-20)
[2018-11-08 13:10] LABS: Absolute Lymphocyte Count 3.25 X10^3/ul (0.83-4.51); Absolute Neutrophil Count 10.8 X10^3/uL (2.0-7.7); Basophil# 0.03 X10^3/uL; Basophil% 0.2 % (0-1); Eosinophil# 0.18 X10^3/uL; Eosinophils% 1.2 % (0-5); Hematocrit 31.1 % (37-47); Hemoglobin 10.1 g/dl (12.0-15.0); Lymphocyte # 3.25 X10^3/ul (4.0); Lymphocyte % 20.8 % (19-41); Mean Corp Hgb Conc 32.5 g/gl (32-36); Mean Corpuscular Hgb 23.8 pg (27.0-32.0); Mean Corpuscular Volume 73.2 fL (81-99); Mean Platelet Vol. 9.5 fl (6.2-12.0); Monocyte# 1.29 X10^3/uL; Monocyte% 8.2 % (0-10); Neutrophil # 10.84 X10^3/uL (2.7-7.7); Neutrophil % 69.3 % (47-70); POSITIVE COUNT NO; POSITIVE DIFFERENTIAL NO; POSITIVE MORPHOLOGY YES; Platelet Count 407 K/mm3 (150-450); RBC Distribution Width CV 14.4 % (11.6-14.6); RBC Distribution Width SD 37.4 fl (35.1-43.9); Red Blood Count 4.25 M/mm3 (4.2-5.4); White Blood Count 15.6 K/mm3 (4.4-11.0)
[2018-11-08 13:11] LABS: Differential Indicated SCAN CRITERIA MET
[2018-11-08 13:28] LABS: ALB/GLOB Ratio 0.6 RATIO (0.9-2.4); AST(SGOT) 8 U/L (15-37); Alanine Aminotransfer ALT/SGPT 18 U/L (13-56); Albumin, Serum 3.2 g/dL (3.2-5.0); Alkaline Phosphatase 88 U/L (45-117); Anion Gap 6 (5-15); BUN 18 mg/dL (7-18); BUN/Creat Ratio 24.1 RATIO (10-20); Chloride 104 mmol/L (98-107); Creatinine, Serum 0.75 mg/dL (0.55-1.02); EST Glomerular Filtration Rate 98 mL/min (>60); Est Glom Filt Rate - Afr Amer 118 mL/min (>60); Glucose 134 mg/dL (74-106); Potassium 4.2 mmol/L (3.5-5.1); Protein, Total 8.2 g/dL (6.4-8.2); Sodium Level 137 mmol/L (136-145)
[2018-11-08 13:40] LABS: Anisocytosis RARE; Red Cell Morphology NORM C+C NORMAL (NORM C&C)
[2018-11-08 13:41] LABS: Platelet Estimate ADEQUATE (ADEQ)
--- NOTE | 2018-11-08 15:02 | PN.PCM_ITS ---
(1) Chronic ulcer of left foot with necrosis of muscle Status: Chronic Current Visit: Yes Code(s): L97.523 - Non-pressure chronic ulcer of other part of left foot with necrosis of muscle (2) Cellulitis Status: Acute Current Visit: Yes Qualifiers: Site of cellulitis: extremity Site of cellulitis of extremity: lower extremity Laterality: left Qualified Code(s): L03.116 - Cellulitis of left lower limb Code(s): L03.90 - Cellulitis, unspecified (3) Ulcer of right foot with fat layer exposed Status: Chronic Current Visit: Yes Code(s): L97.512 - Non-pressure chronic ulcer of other part of right foot with fat layer exposed (4) Diabetic ulcer of left foot with muscle involvement without evidence of necrosis Status: Chronic Current Visit: Yes Qualifiers: Diabetic foot ulcer location: midfoot Diabetes mellitus type: type 2 Qualified Code(s): E11.621 - Type 2 diabetes mellitus with foot ulcer; L97.425 - Non-pressure chronic ulcer of left heel and midfoot with muscle involvement without evidence of necrosis Code(s): E11.621 - Type 2 diabetes mellitus with foot ulcer; L97.525 - Non- pressure chronic ulcer of other part of left foot with muscle involvement without evidence of necrosis (5) Malnutrition Status: Chronic Current Visit: Yes Code(s): E46 - Unspecified protein- calorie malnutrition (6) Delayed wound healing Status: Chronic Current Visit: Yes Code(s): T14.8XXD - Other injury of unspecified body region, subsequent encounter (7) Type 2 diabetes mellitus with diabetic polyneuropathy Status: Chronic Current Visit: Yes Code(s): E11.42 - Type 2 diabetes mellitus with diabetic polyneuropathy Type of Wound Date of Service: 11/08/18 Chief Complaint: Diabetic left foot ulceration, Camacho Grade 3 History of Wound: This 28-year-old female with uncontrolled diabetes returns to clinic for follow-up chronic left foot ulcer. she denies subjective fever, chill, nausea, vomiting. She has been compliant with the dressing recommendations. She does wear her forefoot offloading wide shoes. She continues hyperbaric oxygen therapy sessions and this is going well so far. She denies specific trauma. She relates increased swelling and some redness to her left foot. She denies older injury. She is planning to transfer back to a wound center closer to her house within the next couple of weeks now that her classes are completed. Progress of Wound: Status change with no deep exposed tissue (tendon) continued now with cellulitis. stable right foot ulcer - Physical Exam Vital Signs Temp Pulse Resp BP 97.4 F L 107 H 16 130/78 H 11/08/18 10:17 11/08/18 10:17 11/08/18 10:17 11/08/18 10:17 General: Alert, Oriented x3, Cooperative Extremities: No cyanosis, Capillary Refill Less than 3 Seconds, No Calf Tenderness, Diminished Peripheral Pulses, Edema Skin: Ulcer/ Wound - No purulence, erythema, streaking, odor or infection in the right foot. Exposed tendon and probe to sesamoid noted that is new on the left plantar foot. There is edema and erythema that extends to the dorsal forefoot. There is no crepitus or bogginess on palpation purulence or odor on expression. Peripheral skin is hairless and atrophic. There is no mickey necrosis bilateral Wound Measurements and Assessment WC - Nurse 1 - General Ulcer Measurement Start: 10/18/18 13:49 Freq: Status: Active Protocol: Activity Type Activity Date Activity User E-Sign Co-Sign Detail Recorded Client Recorded Date Recorded By Document 11/08/18 09:13 [facility] [id number] 11/08/18 09:21 [facility] 11/08/18 09:13 Wound Center Nurse 1 [Ulcer Assessment] #1 LEFT PLANTAR -Combined with other wound No -Current Size (cm) - Length 4 -Current Size (cm) - Width 2.7 -Current Size (cm) - Depth 0.7 -Total Square Cm 10.8 -Photo Taken No -Epithelialization None Present -Tunneling No -Undermining/Tunneling No -Circular Undermining No -Exudate Amt Large -Exudate Type Serosanguineous -Wound Margin Distinct, Outline Attached -Granulation Amt Large (67-100%) -Granulation Quality [place] -Slough/Fibrin Yes -Necrosis Amt Small (1-33%) -Necrotic Tissue Type Adherent Slough -Texture (Cheri-wound Skin Appearance) Assessed Callus Scarring -Moisture (Cheri-wound Skin Appearance Assessed ) Dry/Scaly -Color (Cheri-wound Skin Appearance) Assessed -Temperature (Cheri-wound Skin No Abnormality Appearance) (Pt Warm) -Tenderness on Palpation (Cheri-wound Yes Skin Appearance) -Ulcer Cleansing Wound Cleanser -Foul Odor after Cleansing No -Anesthetic Used 5% Lidocaine Gel [Edema Assessment] -Lower Limb Edema Present Yes -Left Calf (cm) 41 -Left Ankle (cm) 24.6 BREANA - Nurse 2 - General Ulcer CM Notes Start: 10/18/18 13:49 Freq: Status: Active Protocol: Activity Type Activity Date Activity User E-Sign Co-Sign Detail Recorded Client Recorded Date Recorded By Document 11/08/18 09:43 AN [id number] 11/08/18 09:47 AN 11/08/18 09:43 Wound Center Nurse 2 [Procedure/Treatment] 8 right plantar -Time 09:47 -Correct Patient Yes -Correct Side, Site, Position Yes -Correct Procedure Yes -Procedure Performed Yes -Type of Procedure Debridement -Clinical Debridement Subcutaneous -Post Debridement Size (cm) - Length 0.2 -Post Debridement Size (cm) - Width 0.2 -Post Debridement Size (cm) - Depth 0.1 -Total Square Cm 0.04 -Wound/Ulcer Outcome Not Healed -Ulcer Cleansing Rinsed/ Irrigated with Saline -Bleeding Controlled with Pressure -Type of Offloading Surgical Shoe -Treatment Response Procedure Tolerated Well #1 LEFT PLANTAR -Time 09:46 -Correct Patient Yes -Correct Side, Site, Position Yes -Correct Procedure Yes -Procedure Performed Yes -Type of Procedure Debridement -Clinical Debridement Subcutaneous -Post Debridement Size (cm) - Length 4.1 -Post Debridement Size (cm) - Width 2.8 -Post Debridement Size (cm) - Depth 0.7 -Total Square Cm 11.48 -Wound/Ulcer Outcome Not Healed -Bleeding Controlled with Pressure -Offloading Yes -Type of Offloading Surgical Shoe -Treatment Response Procedure Tolerated Well [See Physician Procedure note for Specifics] Pain Scale: 0-10 Numeric [Pain] -Is Patient Pain Free? Yes Musculoskeletal: No Tenderness to Palpation of Joints or Extremities, Muscle Wasting Neurological: - - Lack of epicritic sensation light touch consistent with neuropathy bilateral lower extremities Psych/Mental Status: Normal Affect, Appropriate Debridement Note Post-Debridement Measurements/Treatment BREANA - Nurse 2 - General Ulcer CM Notes Start: 10/18/18 13:49 Freq: Status: Active Protocol: Activity Type Activity Date Activity User E-Sign Co-Sign Detail Recorded Client Recorded Date Recorded By Document 10/18/18 16:10 AMMON [id number] 10/18/18 16:14 JF Document 10/25/18 13:20 DL [id number] 10/25/18 13:23 DL Document 11/01/18 14:30 AN [id number] 11/01/18 14:35 AN Document 11/08/18 09:43 AN [id number] 11/08/18 09:47 AN 10/18/18 10/25/18 11/01/18 16:10 13:20 14:30 Wound Center Nurse 2 8 right plantar -Time -Correct Patient -Correct Side, Site, Position -Correct Procedure -Procedure Performed -Type of Procedure -Clinical Debridement -Post Debridement Size (cm) - Length -Post Debridement Size (cm) - Width -Post Debridement Size (cm) - Depth -Total Square Cm -Wound/Ulcer Outcome -Ulcer Cleansing -Bleeding Controlled with -Type of Offloading -Treatment Response #1 LEFT PLANTAR -Time 16:12 13:20 14:33 -Correct Patient Yes Yes Yes -Correct Side, Site, Position Yes Yes Yes -Correct Procedure Yes Yes Yes -Procedure Performed Yes Yes Yes -Type of Procedure Debridement Debridement Debridement -Clinical Debridement Subcutaneous Subcutaneous Subcutaneous -Post Debridement Size (cm) - Length 4.5 5.2 4.3 -Post Debridement Size (cm) - Width 2.8 3.5 0.7 -Post Debridement Size (cm) - Depth 0.5 0.1 0.3 -Total Square Cm 12.60 18.20 3.01 -Wound/Ulcer Outcome Not Healed Not Healed Not Healed -Ulcer Cleansing Rinsed/ Rinsed/ Irrigated with Irrigated with Saline Saline -Foul Odor after Cleansing No No -Bioengineered Tissue No No -Bleeding Controlled with Pressure Pressure -Offloading Yes Yes Yes -Type of Offloading Surgical Shoe Surgical Shoe Wedge Shoe -Treatment Response Procedure Procedure Procedure Tolerated Well Tolerated Well Tolerated Well Pain Scale: 0-10 Numeric Is Patient Pain Free? Yes Yes Yes 11/08/18 09:43 Wound Center Nurse 2 8 right plantar -Time 09:47 -Correct Patient Yes -Correct Side, Site, Position Yes -Correct Procedure Yes -Procedure Performed Yes -Type of Procedure Debridement -Clinical Debridement Subcutaneous -Post Debridement Size (cm) - Length 0.2 -Post Debridement Size (cm) - Width 0.2 -Post Debridement Size (cm) - Depth 0.1 -Total Square Cm 0.04 -Wound/Ulcer Outcome Not Healed -Ulcer Cleansing Rinsed/ Irrigated with Saline -Bleeding Controlled with Pressure -Type of Offloading Surgical Shoe -Treatment Response Procedure Tolerated Well #1 LEFT PLANTAR -Time 09:46 -Correct Patient Yes -Correct Side, Site, Position Yes -Correct Procedure Yes -Procedure Performed Yes -Type of Procedure Debridement -Clinical Debridement Subcutaneous -Post Debridement Size (cm) - Length 4.1 -Post Debridement Size (cm) - Width 2.8 -Post Debridement Size (cm) - Depth 0.7 -Total Square Cm 11.48 -Wound/Ulcer Outcome Not Healed -Ulcer Cleansing -Foul Odor after Cleansing -Bioengineered Tissue -Bleeding Controlled with Pressure -Offloading Yes -Type of Offloading Surgical Shoe -Treatment Response Procedure Tolerated Well Pain Scale: 0-10 Numeric Is Patient Pain Free? Yes Wound debrided: plantar foot Laterality: Right Wound Grade/Stage: grade 1 Type of Debridement: Excisional debridement Anesthesia Used: 5% Lidocaine Gel Depth: in the subcutaneous layer Percentage of wound debrided: 100 Instrument Used: #15 blade Tissue Removed: fibrous, devitalized subcutaneous, biofilm, slough Severity: Fat Layer Exposed Amount of bleeding with debridement: Mild Bleeding Controlled with: Pressure Patient tolerated procedure well - Additional Wound Wound debrided: plantar medial foot Laterality: Left Wound Grade/Stage: grade 3 Type of Debridement: Excisional debridement Anesthesia Used: 5% Lidocaine Gel Depth: to muscle Percentage of wound debrided: 90 - subcutaneous, 10 - tendon Instrument Used: #15 blade, Forceps Tissue Removed: fibrous, devitalized subcutaneous, biofilm, slough Severity: Fat Layer Exposed Amount of bleeding with debridement: Mild Bleeding Controlled with: Pressure Patient tolerated procedure: Patient tolerated procedure well Assessment/Plan Active Problems (Last Reviewed 08/02/18 @ 14:19 by Jocelyn Barlow) Malnutrition (Chronic) Delayed wound healing (Chronic) Diabetic ulcer of left foot with muscle involvement without evidence of necrosis (Chronic) Ulcer of right foot with fat layer exposed (Chronic) 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 All of her ulcers to the right foot are healed today with full epithelialization. Debridement was performed today as noted in the clinical panel to the left foot. It is noted there is newer tendon exposed and this is concerning. However there are no local signs of infection and the tendon appears to be healthy white without abnormalities. This will be monitored closely and further imaging and lab work- up will be considered if this deteriorates further. A dressing consisting of fibricol was applied. To change daily at home as advised to left foot. A newer grade 1 ulcers noted to the right foot and she can change this daily with her reGranix to return to the replace the left lower extremity. To return to fibricol use on the left lower extremity. She understands this would be performed daily at home. This is not noted at this time. No local infection noted at this time to the right foot. Her new left foot cellulitis is noted and cultures were obtained including aerobic, anaerobic, acid-fast, fungal, and MRSA PCR. Lab were ordered including CBC, ESR, C-reactive protein. Updated x- rays were ordered including sagittal axial and 3 standard foot x-rays. Her prescription was provided for ciprofloxacin and Augmentin and she is advised on seeking proper use. If her clinical signs of infection progress or she develops systemic symptoms I advised her to call the foot and ankle Center report to the emergency room for potential admission and IV antibiotics. To continue to follow-up for medical management with PCP and endocrinology. She has continued hyperbaric oxygen therapy sessions and this is going well. A reassessment will be performed this next week to see if it is appropriate for her to continue; I recommend continuation of hyperbaric oxygen therapy. The patient was educated on the importance of diet on wound healing and instructed to increase protein and vitamin C intake. To use assistive devices. To continue follow-up with nutrition services. Her most recent noninvasive vascular studies were reviewed from April 2018 with bilateral ankle-brachial indices 1.23. Her results demonstrated normal arterial perfusion. Her venous duplex Doppler studies with reflux evaluation were also reviewed and the results were discussed. 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 I do recommend future vascular surgeon referral to see if intervention may be completed. She will consider venous intervention. To follow-up with the wound healing center in 1 week. Answered her questions.
--- NOTE | 2018-11-08 17:05 | PCM.HBO.PN ---
History of Present Illness Presenting Chief Complaint: Diabetic left foot ulceration, Camacho Grade 3 DON COTTO is a 28 year old currently undergoing hyperbaric oxygen therapy for diabetic left foot ulceration,Camacho Grade 3 Progress: Today's session represents the 31st of 40 planned sessions of hyperbaric oxygen therapy. Today's session was well tolerated. Tolerance of hyperbaric oxygen therapy: Hyperbaric oxygen therapy was administered as per the facility protocol. The patient tolerated hyperbaric oxygen therapy well, without complaints or complications. Upon emergence from the hyperbaric chamber, the patient's vital signs remained stable. The patient was discharged in good condition. See documented blood glucose levels. Past Medical History Chronic Problems (Last Reviewed 08/02/18 @ 14:19 by Jocelyn Barlow) Dehiscence of closure of subcutaneous tissue (Chronic) Hallux limitus of right foot (Chronic) Abscess of right foot (Chronic) Diabetes mellitus type 2, uncontrolled, with complications (Chronic) Venous insufficiency (Chronic) Hammer toe of right foot (Chronic) Hammer toe of left foot (Chronic) Pre-ulcerative corn or callous (Chronic) Malnutrition (Chronic) Deformity of metatarsal (Chronic) Delayed wound healing (Chronic) Diabetic ulcer of left foot with muscle involvement without evidence of necrosis (Chronic) Ulcer of right foot with fat layer exposed (Chronic) 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) Diabetic foot ulcer (Chronic) Chronic ulcer of left foot with fat layer exposed (Chronic) Endometriosis (Chronic) Diabetes (Chronic) 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) Ulcer of right foot with necrosis of muscle (Chronic) Obesity (BMI 30.0-34.9) (Chronic) Diabetes mellitus, type II (Chronic) Allergies/Adverse Reactions: Allergies clindamycin Allergy (Verified 08/15/18 12:04) Hives vancomycin Allergy (Verified 08/15/18 12:04) Hives/makes my heart race Home Medications: Ambulatory Orders Medication Instructions Recorded Cholecalciferol (Vitamin D3) 2,000 unit PO DAILY 03/10/18 [Vitamin D3] insulin glargine (U-100) 100 68 unit SUBCUT QHS #15 ml 08/02/18 unit/mL (3 mL) subcutaneous pen insulin lispro (U- 100) 100 14 unit SC TID #15 ml 08/02/18 unit/mL subcutaneous pen Maternal Family History: Family History (Last Reviewed 08/02/18 @ 14:19 by Jocelyn Barlow) Grandfather Diabetes Leukemia Grandmother Diabetes Mother Diabetes Hypertension Father Prostate cancer Grandfather Myocardial infarction Family History: - - Patient notes a maternal family history of diabetes. Paternal Family History: Family History (Last Reviewed 08/02/18 @ 14:19 by Jocelyn Barlow) Grandfather Diabetes Leukemia Grandmother Diabetes Mother Diabetes Hypertension Father Prostate cancer Grandfather Myocardial infarction Family History: - - Patient notes a paternal family history of prostate cancer, hypertension and diabetes. Smoking Status: Never smoker Physical Exam Vital Signs Temp Pulse Resp BP 97.4 F L 107 H 16 130/78 H 11/08/18 10:17 11/08/18 10:17 11/08/18 10:17 11/08/18 10:17 General: Alert, Oriented x3, Cooperative, No apparent distress HEENT: Atraumatic, Normocephalic Lungs: Normal air movement Psych/Mental Status: Normal Affect Assessment/Plan Active Problems (Last Reviewed 08/02/18 @ 14:19 by Jocelyn Barlow) Malnutrition (Chronic) Delayed wound healing (Chronic) Diabetic ulcer of left foot with muscle involvement without evidence of necrosis (Chronic) Ulcer of right foot with fat layer exposed (Chronic) 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
[2018-11-09 09:01] LABS: Bedside Glucose 159 mg/dL (70-110)
[2018-11-09 09:19] VITALS: BP 117/65; BP 130/70; PULSE 114; PULSE 92; RESP 16; RESP 18; TEMP 35.8; TEMP 36
--- NOTE | 2018-11-09 10:09 | PCM.HBO.PN ---
History of Present Illness Presenting Chief Complaint: Diabetic left foot ulceration, Camacho Grade 3 DON COTTO is a 28 year old currently undergoing hyperbaric oxygen therapy for diabetic left foot ulceration,Camacho Grade 3 Progress: Today's session represents the 32nd of 40 planned sessions of hyperbaric oxygen therapy. Today's session was well tolerated. Tolerance of hyperbaric oxygen therapy: Hyperbaric oxygen therapy was administered as per the facility protocol. The patient tolerated hyperbaric oxygen therapy well, without complaints or complications. Upon emergence from the hyperbaric chamber, the patient's vital signs remained stable. The patient was discharged in good condition. See documented blood glucose levels. Past Medical History Chronic Problems (Last Reviewed 08/02/18 @ 14:19 by Jocelyn Barlow) Dehiscence of closure of subcutaneous tissue (Chronic) Hallux limitus of right foot (Chronic) Abscess of right foot (Chronic) Diabetes mellitus type 2, uncontrolled, with complications (Chronic) Venous insufficiency (Chronic) Hammer toe of right foot (Chronic) Hammer toe of left foot (Chronic) Pre-ulcerative corn or callous (Chronic) Malnutrition (Chronic) Deformity of metatarsal (Chronic) Delayed wound healing (Chronic) Diabetic ulcer of left foot with muscle involvement without evidence of necrosis (Chronic) Ulcer of right foot with fat layer exposed (Chronic) 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) Diabetic foot ulcer (Chronic) Chronic ulcer of left foot with fat layer exposed (Chronic) Endometriosis (Chronic) Diabetes (Chronic) 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) Ulcer of right foot with necrosis of muscle (Chronic) Obesity (BMI 30.0-34.9) (Chronic) Diabetes mellitus, type II (Chronic) Allergies/Adverse Reactions: Allergies clindamycin Allergy (Verified 08/15/18 12:04) Hives vancomycin Allergy (Verified 08/15/18 12:04) Hives/makes my heart race Home Medications: Ambulatory Orders Medication Instructions Recorded Cholecalciferol (Vitamin D3) 2,000 unit PO DAILY 03/10/18 [Vitamin D3] insulin glargine (U-100) 100 68 unit SUBCUT QHS #15 ml 08/02/18 unit/mL (3 mL) subcutaneous pen insulin lispro (U- 100) 100 14 unit SC TID #15 ml 08/02/18 unit/mL subcutaneous pen Maternal Family History: Family History (Last Reviewed 08/02/18 @ 14:19 by Jocelyn Barlow) Grandfather Diabetes Leukemia Grandmother Diabetes Mother Diabetes Hypertension Father Prostate cancer Grandfather Myocardial infarction Family History: - - Patient notes a maternal family history of diabetes. Paternal Family History: Family History (Last Reviewed 08/02/18 @ 14:19 by Jocelyn Barlow) Grandfather Diabetes Leukemia Grandmother Diabetes Mother Diabetes Hypertension Father Prostate cancer Grandfather Myocardial infarction Family History: - - Patient notes a paternal family history of prostate cancer, hypertension and diabetes. Smoking Status: Never smoker Physical Exam Vital Signs Temp Pulse Resp BP 96.8 F L 114 H 18 130/70 H 11/09/18 09:19 11/09/18 09:19 11/09/18 09:19 11/09/18 09:19 General: Alert, Oriented x3, Cooperative, No apparent distress HEENT: Atraumatic, Normocephalic Lungs: Normal air movement Cardiovascular: Regular rate Psych/Mental Status: Normal Affect Assessment/Plan Active Problems (Last Reviewed 08/02/18 @ 14:19 by Jocelyn Barlow) Malnutrition (Chronic) Delayed wound healing (Chronic) Diabetic ulcer of left foot with muscle involvement without evidence of necrosis (Chronic) Ulcer of right foot with fat layer exposed (Chronic) 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
[2018-11-09 11:11] LABS: Bedside Glucose 241 mg/dL (70-110)
[2018-11-10 08:07] VITALS: BP 132/74; PULSE 102; RESP 18; TEMP 36.6; BMI 36.7
--- NOTE | 2018-11-10 08:35 | PCM.WC.PN ---
(1) Cellulitis Status: Acute Current Visit: Yes Qualifiers: Site of cellulitis: extremity Site of cellulitis of extremity: lower extremity Laterality: left Qualified Code(s): L03.116 - Cellulitis of left lower limb Code(s): L03.90 - Cellulitis, unspecified (2) Chronic ulcer of left foot with fat layer exposed Status: Chronic Current Visit: Yes Code(s): L97.522 - Non-pressure chronic ulcer of other part of left foot with fat layer exposed (3) Delayed wound healing Status: Chronic Current Visit: Yes Code(s): T14.8XXD - Other injury of unspecified body region, subsequent encounter (4) Diabetic ulcer of left foot with muscle involvement without evidence of necrosis Status: Chronic Current Visit: Yes Qualifiers: Diabetic foot ulcer location: midfoot Diabetes mellitus type: type 2 Qualified Code(s): E11.621 - Type 2 diabetes mellitus with foot ulcer; L97.425 - Non-pressure chronic ulcer of left heel and midfoot with muscle involvement without evidence of necrosis Code(s): E11.621 - Type 2 diabetes mellitus with foot ulcer; L97.525 - Non-pressure chronic ulcer of other part of left foot with muscle involvement without evidence of necrosis (5) Malnutrition Status: Chronic Current Visit: Yes Code(s): E46 - Unspecified protein-calorie malnutrition (6) Type 2 diabetes mellitus with diabetic polyneuropathy Status: Chronic Current Visit: Yes Code(s): E11.42 - Type 2 diabetes mellitus with diabetic polyneuropathy (7) Ulcer of right foot with fat layer exposed Status: Chronic Current Visit: Yes Code(s): L97.512 - Non-pressure chronic ulcer of other part of right foot with fat layer exposed Type of Wound Chief Complaint: Diabetic left foot ulceration, Camacho Grade 3 History of Wound: This 28-year-old female with uncontrolled diabetes returns to clinic for follow-up chronic left foot ulcer. she denies subjective fever, chill, nausea, vomiting. She has been compliant with the dressing recommendations. She does wear her forefoot offloading wide shoes. She continues hyperbaric oxygen therapy sessions and this is going well so far. She denies specific trauma. She relates increased swelling and some redness to her left foot. She denies older injury. She is planning to transfer back to a wound center closer to her house within the next couple of weeks now that her classes are completed. Progress of Wound: Shi today came in for evaluation of her HBO treatments for continuation or not. Patient is coming up to her last 10 treatments. Upon evaluation left foot DFU still deep swelling cellulitis apparent infection in the foot using Fibracol at this time for keeping the wound cleaned out. Wound does look clean with beefy skin exposed. Will suggest 20 more treatments for continuation of the HBO for healing purposes. - Physical Exam Vital Signs Temp Pulse Resp BP 97.8 F 102 H 18 132/74 H 11/10/18 08:07 11/10/18 08:07 11/10/18 08:07 11/10/18 08:07 General: Oriented x3, Cooperative, Well developed HEENT: Atraumatic, PERRLA Oral: Moist Mucosa Neck: Supple, No JVD Lungs: Clear to auscultation, Normal air movement Cardiovascular: Regular rate, Regular Rhythm Abdomen: Bowel Sounds Present, Soft, Non Tender, No Hepato-splenomegaly Extremities: No clubbing, No edema, - - Left foot DFU Wound Measurements and Assessment WC - Nurse 1 - General Ulcer Measurement Start: 10/18/18 13:49 Freq: Status: Active Protocol: Activity Type Activity Date Activity User E-Sign Co-Sign Detail Recorded Client Recorded Date Recorded By Document 11/08/18 09:13 [facility] [id number] 11/08/18 09:21 [facility] 11/08/18 09:13 Wound Center Nurse 1 [Ulcer Assessment] #1 LEFT PLANTAR -Combined with other wound No -Current Size (cm) - Length 4 -Current Size (cm) - Width 2.7 -Current Size (cm) - Depth 0.7 -Total Square Cm 10.8 -Photo Taken No -Epithelialization None Present -Tunneling No -Undermining/Tunneling No -Circular Undermining No -Exudate Amt Large -Exudate Type Serosanguineous -Wound Margin Distinct, Outline Attached -Granulation Amt Large (67-100%) -Granulation Quality [place] -Slough/Fibrin Yes -Necrosis Amt Small (1-33%) -Necrotic Tissue Type Adherent Slough -Texture (Cheri-wound Skin Appearance) Assessed Callus Scarring -Moisture (Cheri-wound Skin Appearance Assessed ) Dry/Scaly -Color (Cheri-wound Skin Appearance) Assessed -Temperature (Cheri-wound Skin No Abnormality Appearance) (Pt Warm) -Tenderness on Palpation (Cheri-wound Yes Skin Appearance) -Ulcer Cleansing Wound Cleanser -Foul Odor after Cleansing No -Anesthetic Used 5% Lidocaine Gel [Edema Assessment] -Lower Limb Edema Present Yes -Left Calf (cm) 41 -Left Ankle (cm) 24.6 WC - Nurse 2 - General Ulcer CM Notes Start: 10/18/18 13:49 Freq: Status: Active Protocol: Activity Type Activity Date Activity User E-Sign Co-Sign Detail Recorded Client Recorded Date Recorded By Document 11/08/18 09:43 AN [id number] 11/08/18 09:47 AN 11/08/18 09:43 Wound Center Nurse 2 [Procedure/Treatment] 8 right plantar -Time 09:47 -Correct Patient Yes -Correct Side, Site, Position Yes -Correct Procedure Yes -Procedure Performed Yes -Type of Procedure Debridement -Clinical Debridement Subcutaneous -Post Debridement Size (cm) - Length 0.2 -Post Debridement Size (cm) - Width 0.2 -Post Debridement Size (cm) - Depth 0.1 -Total Square Cm 0.04 -Wound/Ulcer Outcome Not Healed -Ulcer Cleansing Rinsed/ Irrigated with Saline -Bleeding Controlled with Pressure -Type of Offloading Surgical Shoe -Treatment Response Procedure Tolerated Well #1 LEFT PLANTAR -Time 09:46 -Correct Patient Yes -Correct Side, Site, Position Yes -Correct Procedure Yes -Procedure Performed Yes -Type of Procedure Debridement -Clinical Debridement Subcutaneous -Post Debridement Size (cm) - Length 4.1 -Post Debridement Size (cm) - Width 2.8 -Post Debridement Size (cm) - Depth 0.7 -Total Square Cm 11.48 -Wound/Ulcer Outcome Not Healed -Bleeding Controlled with Pressure -Offloading Yes -Type of Offloading Surgical Shoe -Treatment Response Procedure Tolerated Well [See Physician Procedure note for Specifics] Pain Scale: 0-10 Numeric [Pain] -Is Patient Pain Free? Yes Musculoskeletal: No Tenderness to Palpation of Joints or Extremities Lymphatic: No Cervical, Supraclavicular, or Inguinal Adenopathy Neurological: Cranial nerves II-XII grossly intact, Neuro grossly intact Psych/Mental Status: Normal Affect, Appropriate Debridement Note Post-Debridement Measurements/Treatment WC - Nurse 2 - General Ulcer CM Notes Start: 10/18/18 13:49 Freq: Status: Active Protocol: Activity Type Activity Date Activity User E-Sign Co-Sign Detail Recorded Client Recorded Date Recorded By Document 10/18/18 16:10 JF [id number] 10/18/18 16:14 JF Document 10/25/18 13:20 DL [id number] 10/25/18 13:23 DL Document 11/01/18 14:30 AN [id number] 11/01/18 14:35 AN Document 11/08/18 09:43 AN [id number] 11/08/18 09:47 AN 10/18/18 10/25/18 11/01/18 16:10 13:20 14:30 Wound Center Nurse 2 8 right plantar -Time -Correct Patient -Correct Side, Site, Position -Correct Procedure -Procedure Performed -Type of Procedure -Clinical Debridement -Post Debridement Size (cm) - Length -Post Debridement Size (cm) - Width -Post Debridement Size (cm) - Depth -Total Square Cm -Wound/Ulcer Outcome -Ulcer Cleansing -Bleeding Controlled with -Type of Offloading -Treatment Response #1 LEFT PLANTAR -Time 16:12 13:20 14:33 -Correct Patient Yes Yes Yes -Correct Side, Site, Position Yes Yes Yes -Correct Procedure Yes Yes Yes -Procedure Performed Yes Yes Yes -Type of Procedure Debridement Debridement Debridement -Clinical Debridement Subcutaneous Subcutaneous Subcutaneous -Post Debridement Size (cm) - Length 4.5 5.2 4.3 -Post Debridement Size (cm) - Width 2.8 3.5 0.7 -Post Debridement Size (cm) - Depth 0.5 0.1 0.3 -Total Square Cm 12.60 18.20 3.01 -Wound/Ulcer Outcome Not Healed Not Healed Not Healed -Ulcer Cleansing Rinsed/ Rinsed/ Irrigated with Irrigated with Saline Saline -Foul Odor after Cleansing No No -Bioengineered Tissue No No -Bleeding Controlled with Pressure Pressure -Offloading Yes Yes Yes -Type of Offloading Surgical Shoe Surgical Shoe Wedge Shoe -Treatment Response Procedure Procedure Procedure Tolerated Well Tolerated Well Tolerated Well Pain Scale: 0-10 Numeric Is Patient Pain Free? Yes Yes Yes 11/08/18 09:43 Wound Center Nurse 2 8 right plantar -Time 09:47 -Correct Patient Yes -Correct Side, Site, Position Yes -Correct Procedure Yes -Procedure Performed Yes -Type of Procedure Debridement -Clinical Debridement Subcutaneous -Post Debridement Size (cm) - Length 0.2 -Post Debridement Size (cm) - Width 0.2 -Post Debridement Size (cm) - Depth 0.1 -Total Square Cm 0.04 -Wound/Ulcer Outcome Not Healed -Ulcer Cleansing Rinsed/ Irrigated with Saline -Bleeding Controlled with Pressure -Type of Offloading Surgical Shoe -Treatment Response Procedure Tolerated Well #1 LEFT PLANTAR -Time 09:46 -Correct Patient Yes -Correct Side, Site, Position Yes -Correct Procedure Yes -Procedure Performed Yes -Type of Procedure Debridement -Clinical Debridement Subcutaneous -Post Debridement Size (cm) - Length 4.1 -Post Debridement Size (cm) - Width 2.8 -Post Debridement Size (cm) - Depth 0.7 -Total Square Cm 11.48 -Wound/Ulcer Outcome Not Healed -Ulcer Cleansing -Foul Odor after Cleansing -Bioengineered Tissue -Bleeding Controlled with Pressure -Offloading Yes -Type of Offloading Surgical Shoe -Treatment Response Procedure Tolerated Well Pain Scale: 0-10 Numeric Is Patient Pain Free? Yes Wound debrided: Left foot DFU Laterality: Left Wound Grade/Stage: Licha 3 No debridement was completed today Assessment/Plan Clinical Impression(s) from Imaging Studies Foot X-Ray 11/08/18 12:40 IMPRESSION: No evidence of osteomyelitis. No fracture. A deformity involving the proximal half of the proximal phalanx of the fourth toe and the distal half of the fourth metatarsal bone. These changes may be from chronic infection or previous surgery. 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 Finished 10 here would like to move back home to finish treatments [place] her own [place]. Orders written and sent for her to follow-up in [facility]. Patient continues to follow with Dr. Diamond on for surgical intervention and treatment.
--- NOTE | 2018-11-10 08:39 | PN.PCM_ITS ---
(1) Cellulitis Status: Acute Current Visit: Yes Qualifiers: Site of cellulitis: extremity Site of cellulitis of extremity: lower extremity Laterality: left Qualified Code(s): L03.116 - Cellulitis of left lower limb Code(s): L03.90 - Cellulitis, unspecified (2) Chronic ulcer of left foot with fat layer exposed Status: Chronic Current Visit: Yes Code(s): L97.522 - Non-pressure chronic ulcer of other part of left foot with fat layer exposed (3) Delayed wound healing Status: Chronic Current Visit: Yes Code(s): T14.8XXD - Other injury of unspecified body region, subsequent encounter (4) Diabetic ulcer of left foot with muscle involvement without evidence of necrosis Status: Chronic Current Visit: Yes Qualifiers: Diabetic foot ulcer location: midfoot Diabetes mellitus type: type 2 Qualified Code(s): E11.621 - Type 2 diabetes mellitus with foot ulcer; L97.425 - Non-pressure chronic ulcer of left heel and midfoot with muscle involvement without evidence of necrosis Code(s): E11.621 - Type 2 diabetes mellitus with foot ulcer; L97.525 - Non- pressure chronic ulcer of other part of left foot with muscle involvement without evidence of necrosis (5) Malnutrition Status: Chronic Current Visit: Yes Code(s): E46 - Unspecified protein- calorie malnutrition (6) Type 2 diabetes mellitus with diabetic polyneuropathy Status: Chronic Current Visit: Yes Code(s): E11.42 - Type 2 diabetes mellitus with diabetic polyneuropathy (7) Ulcer of right foot with fat layer exposed Status: Chronic Current Visit: Yes Code(s): L97.512 - Non-pressure chronic ulcer of other part of right foot with fat layer exposed Type of Wound Chief Complaint: Diabetic left foot ulceration, Camacho Grade 3 History of Wound: This 28-year-old female with uncontrolled diabetes returns to clinic for follow-up chronic left foot ulcer. she denies subjective fever, chill, nausea, vomiting. She has been compliant with the dressing recommendations. She does wear her forefoot offloading wide shoes. She continues hyperbaric oxygen therapy sessions and this is going well so far. She denies specific trauma. She relates increased swelling and some redness to her left foot. She denies older injury. She is planning to transfer back to a wound center closer to her house within the next couple of weeks now that her classes are completed. Progress of Wound: Shi today came in for evaluation of her HBO treatments for continuation or not. Patient is coming up to her last 10 treatments. Upon evaluation left foot DFU still deep swelling cellulitis apparent infection in the foot using Fibracol at this time for keeping the wound cleaned out. Wound does look clean with beefy skin exposed. Will suggest 20 more treatments for continuation of the HBO for healing purposes. - Physical Exam Vital Signs Temp Pulse Resp BP 97.8 F 102 H 18 132/74 H 11/10/18 08:07 11/10/18 08:07 11/10/18 08:07 11/10/18 08:07 General: Oriented x3, Cooperative, Well developed HEENT: Atraumatic, PERRLA Oral: Moist Mucosa Neck: Supple, No JVD Lungs: Clear to auscultation, Normal air movement Cardiovascular: Regular rate, Regular Rhythm Abdomen: Bowel Sounds Present, Soft, Non Tender, No Hepato-splenomegaly Extremities: No clubbing, No edema, - - Left foot DFU Wound Measurements and Assessment WC - Nurse 1 - General Ulcer Measurement Start: 10/18/18 13:49 Freq: Status: Active Protocol: Activity Type Activity Date Activity User E-Sign Co-Sign Detail Recorded Client Recorded Date Recorded By Document 11/08/18 09:13 [facility] [id number] 11/08/18 09:21 [facility] 11/08/18 09:13 Wound Center Nurse 1 [Ulcer Assessment] #1 LEFT PLANTAR -Combined with other wound No -Current Size (cm) - Length 4 -Current Size (cm) - Width 2.7 -Current Size (cm) - Depth 0.7 -Total Square Cm 10.8 -Photo Taken No -Epithelialization None Present -Tunneling No -Undermining/Tunneling No -Circular Undermining No -Exudate Amt Large -Exudate Type Serosanguineous -Wound Margin Distinct, Outline Attached -Granulation Amt Large (67-100%) -Granulation Quality Colon -Slough/Fibrin Yes -Necrosis Amt Small (1-33%) -Necrotic Tissue Type Adherent Slough -Texture (Cheri-wound Skin Appearance) Assessed Callus Scarring -Moisture (Cheri-wound Skin Appearance Assessed ) Dry/Scaly -Color (Cheri-wound Skin Appearance) Assessed -Temperature (Cheri-wound Skin No Abnormality Appearance) (Pt Warm) -Tenderness on Palpation (Cheri-wound Yes Skin Appearance) -Ulcer Cleansing Wound Cleanser -Foul Odor after Cleansing No -Anesthetic Used 5% Lidocaine Gel [Edema Assessment] -Lower Limb Edema Present Yes -Left Calf (cm) 41 -Left Ankle (cm) 24.6 WC - Nurse 2 - General Ulcer CM Notes Start: 10/18/18 13:49 Freq: Status: Active Protocol: Activity Type Activity Date Activity User E-Sign Co-Sign Detail Recorded Client Recorded Date Recorded By Document 11/08/18 09:43 AN [id number] 11/08/18 09:47 AN 11/08/18 09:43 Wound Center Nurse 2 [Procedure/Treatment] 8 right plantar -Time 09:47 -Correct Patient Yes -Correct Side, Site, Position Yes -Correct Procedure Yes -Procedure Performed Yes -Type of Procedure Debridement -Clinical Debridement Subcutaneous -Post Debridement Size (cm) - Length 0.2 -Post Debridement Size (cm) - Width 0.2 -Post Debridement Size (cm) - Depth 0.1 -Total Square Cm 0.04 -Wound/Ulcer Outcome Not Healed -Ulcer Cleansing Rinsed/ Irrigated with Saline -Bleeding Controlled with Pressure -Type of Offloading Surgical Shoe -Treatment Response Procedure Tolerated Well #1 LEFT PLANTAR -Time 09:46 -Correct Patient Yes -Correct Side, Site, Position Yes -Correct Procedure Yes -Procedure Performed Yes -Type of Procedure Debridement -Clinical Debridement Subcutaneous -Post Debridement Size (cm) - Length 4.1 -Post Debridement Size (cm) - Width 2.8 -Post Debridement Size (cm) - Depth 0.7 -Total Square Cm 11.48 -Wound/Ulcer Outcome Not Healed -Bleeding Controlled with Pressure -Offloading Yes -Type of Offloading Surgical Shoe -Treatment Response Procedure Tolerated Well [See Physician Procedure note for Specifics] Pain Scale: 0-10 Numeric [Pain] -Is Patient Pain Free? Yes Musculoskeletal: No Tenderness to Palpation of Joints or Extremities Lymphatic: No Cervical, Supraclavicular, or Inguinal Adenopathy Neurological: Cranial nerves II-XII grossly intact, Neuro grossly intact Psych/Mental Status: Normal Affect, Appropriate Debridement Note Post-Debridement Measurements/Treatment WC - Nurse 2 - General Ulcer CM Notes Start: 10/18/18 13:49 Freq: Status: Active Protocol: Activity Type Activity Date Activity User E-Sign Co-Sign Detail Recorded Client Recorded Date Recorded By Document 10/18/18 16:10 JF [id number] 10/18/18 16:14 JF Document 10/25/18 13:20 DL [id number] 10/25/18 13:23 DL Document 11/01/18 14:30 AN [id number] 11/01/18 14:35 AN Document 11/08/18 09:43 AN [id number] 11/08/18 09:47 AN 10/18/18 10/25/18 11/01/18 16:10 13:20 14:30 Wound Center Nurse 2 8 right plantar -Time -Correct Patient -Correct Side, Site, Position -Correct Procedure -Procedure Performed -Type of Procedure -Clinical Debridement -Post Debridement Size (cm) - Length -Post Debridement Size (cm) - Width -Post Debridement Size (cm) - Depth -Total Square Cm -Wound/Ulcer Outcome -Ulcer Cleansing -Bleeding Controlled with -Type of Offloading -Treatment Response #1 LEFT PLANTAR -Time 16:12 13:20 14:33 -Correct Patient Yes Yes Yes -Correct Side, Site, Position Yes Yes Yes -Correct Procedure Yes Yes Yes -Procedure Performed Yes Yes Yes -Type of Procedure Debridement Debridement Debridement -Clinical Debridement Subcutaneous Subcutaneous Subcutaneous -Post Debridement Size (cm) - Length 4.5 5.2 4.3 -Post Debridement Size (cm) - Width 2.8 3.5 0.7 -Post Debridement Size (cm) - Depth 0.5 0.1 0.3 -Total Square Cm 12.60 18.20 3.01 -Wound/Ulcer Outcome Not Healed Not Healed Not Healed -Ulcer Cleansing Rinsed/ Rinsed/ Irrigated with Irrigated with Saline Saline -Foul Odor after Cleansing No No -Bioengineered Tissue No No -Bleeding Controlled with Pressure Pressure -Offloading Yes Yes Yes -Type of Offloading Surgical Shoe Surgical Shoe Wedge Shoe -Treatment Response Procedure Procedure Procedure Tolerated Well Tolerated Well Tolerated Well Pain Scale: 0-10 Numeric Is Patient Pain Free? Yes Yes Yes 11/08/18 09:43 Wound Center Nurse 2 8 right plantar -Time 09:47 -Correct Patient Yes -Correct Side, Site, Position Yes -Correct Procedure Yes -Procedure Performed Yes -Type of Procedure Debridement -Clinical Debridement Subcutaneous -Post Debridement Size (cm) - Length 0.2 -Post Debridement Size (cm) - Width 0.2 -Post Debridement Size (cm) - Depth 0.1 -Total Square Cm 0.04 -Wound/Ulcer Outcome Not Healed -Ulcer Cleansing Rinsed/ Irrigated with Saline -Bleeding Controlled with Pressure -Type of Offloading Surgical Shoe -Treatment Response Procedure Tolerated Well #1 LEFT PLANTAR -Time 09:46 -Correct Patient Yes -Correct Side, Site, Position Yes -Correct Procedure Yes -Procedure Performed Yes -Type of Procedure Debridement -Clinical Debridement Subcutaneous -Post Debridement Size (cm) - Length 4.1 -Post Debridement Size (cm) - Width 2.8 -Post Debridement Size (cm) - Depth 0.7 -Total Square Cm 11.48 -Wound/Ulcer Outcome Not Healed -Ulcer Cleansing -Foul Odor after Cleansing -Bioengineered Tissue -Bleeding Controlled with Pressure -Offloading Yes -Type of Offloading Surgical Shoe -Treatment Response Procedure Tolerated Well Pain Scale: 0-10 Numeric Is Patient Pain Free? Yes Wound debrided: Left foot DFU Laterality: Left Wound Grade/Stage: Licha 3 No debridement was completed today Assessment/Plan Clinical Impression(s) from Imaging Studies Foot X-Ray 11/08/18 12:40 IMPRESSION: No evidence of osteomyelitis. No fracture. A deformity involving the proximal half of the proximal phalanx of the fourth toe and the distal half of the fourth metatarsal bone. These changes may be from chronic infection or previous surgery. 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 Finished 10 here would like to move back home to finish treatments [place] her own [place]. Orders written and sent for her to follow-up in [facility]. Patient continues to follow with Dr. Diamond on for surgical intervention and treatment.
[2018-11-10 09:04] VITALS: BP 127/83; BP 142/67; PULSE 110; PULSE 90; RESP 16; TEMP 36.3; TEMP 36.4
[2018-11-10 09:06] LABS: Bedside Glucose 240 mg/dL (70-110)
--- NOTE | 2018-11-10 10:46 | PCM.HBO.PN ---
History of Present Illness Presenting Chief Complaint: Diabetic left foot ulceration, Camacho Grade 3 DON COTTO is a 28 year old currently undergoing hyperbaric oxygen therapy for diabetic left foot ulceration,Camacho Grade 3 Progress: Today's session represents the 33nd of 40 planned sessions of hyperbaric oxygen therapy. Today's session was well tolerated. Tolerance of hyperbaric oxygen therapy: Hyperbaric oxygen therapy was administered as per the facility protocol. The patient tolerated hyperbaric oxygen therapy well, without complaints or complications. Upon emergence from the hyperbaric chamber, the patient's vital signs remained stable. The patient was discharged in good condition. See documented blood glucose levels. Past Medical History Chronic Problems (Last Reviewed 08/02/18 @ 14:19 by Jocelyn Barlwo) Dehiscence of closure of subcutaneous tissue (Chronic) Hallux limitus of right foot (Chronic) Abscess of right foot (Chronic) Diabetes mellitus type 2, uncontrolled, with complications (Chronic) Venous insufficiency (Chronic) Hammer toe of right foot (Chronic) Hammer toe of left foot (Chronic) Pre-ulcerative corn or callous (Chronic) Malnutrition (Chronic) Deformity of metatarsal (Chronic) Delayed wound healing (Chronic) Diabetic ulcer of left foot with muscle involvement without evidence of necrosis (Chronic) Ulcer of right foot with fat layer exposed (Chronic) 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) Diabetic foot ulcer (Chronic) Chronic ulcer of left foot with fat layer exposed (Chronic) Endometriosis (Chronic) Diabetes (Chronic) 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) Ulcer of right foot with necrosis of muscle (Chronic) Obesity (BMI 30.0-34.9) (Chronic) Diabetes mellitus, type II (Chronic) Allergies/Adverse Reactions: Allergies clindamycin Allergy (Verified 08/15/18 12:04) Hives vancomycin Allergy (Verified 08/15/18 12:04) Hives/makes my heart race Home Medications: Ambulatory Orders Medication Instructions Recorded Cholecalciferol (Vitamin D3) 2,000 unit PO DAILY 03/10/18 [Vitamin D3] insulin glargine (U-100) 100 68 unit SUBCUT QHS #15 ml 08/02/18 unit/mL (3 mL) subcutaneous pen insulin lispro (U- 100) 100 14 unit SC TID #15 ml 08/02/18 unit/mL subcutaneous pen Maternal Family History: Family History (Last Reviewed 08/02/18 @ 14:19 by Jocelyn Barlow) Grandfather Diabetes Leukemia Grandmother Diabetes Mother Diabetes Hypertension Father Prostate cancer Grandfather Myocardial infarction Family History: - - Patient notes a maternal family history of diabetes. Paternal Family History: Family History (Last Reviewed 08/02/18 @ 14:19 by Jocelyn Barlow) Grandfather Diabetes Leukemia Grandmother Diabetes Mother Diabetes Hypertension Father Prostate cancer Grandfather Myocardial infarction Family History: - - Patient notes a paternal family history of prostate cancer, hypertension and diabetes. 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
[2018-11-10 10:55] LABS: Bedside Glucose 165 mg/dL (70-110)
[2018-11-14 08:55] LABS: Bedside Glucose 148 mg/dL (70-110)
[2018-11-14 11:01] LABS: Bedside Glucose 181 mg/dL (70-110)
[2018-11-14 11:12] VITALS: BP 131/74; BP 139/74; PULSE 120; PULSE 86; RESP 14; RESP 16; TEMP 36.5; TEMP 37.5
--- NOTE | 2018-11-14 12:53 | PCM.HBO.PN ---
History of Present Illness Presenting Chief Complaint: Diabetic left foot ulceration, Camacho Grade 3 DON COTTO is a 28 year old currently undergoing hyperbaric oxygen therapy for diabetic left foot ulceration,Camacho Grade 3 Progress: Today's session represents the 34nd of 40 planned sessions of hyperbaric oxygen therapy. Today's session was well tolerated. Tolerance of hyperbaric oxygen therapy: Hyperbaric oxygen therapy was administered as per the facility protocol. The patient tolerated hyperbaric oxygen therapy well, without complaints or complications. Upon emergence from the hyperbaric chamber, the patient's vital signs remained stable. The patient was discharged in good condition. See documented blood glucose levels. Past Medical History Chronic Problems (Last Reviewed 08/02/18 @ 14:19 by Jocelyn Barlow) Dehiscence of closure of subcutaneous tissue (Chronic) Hallux limitus of right foot (Chronic) Abscess of right foot (Chronic) Diabetes mellitus type 2, uncontrolled, with complications (Chronic) Venous insufficiency (Chronic) Hammer toe of right foot (Chronic) Hammer toe of left foot (Chronic) Pre-ulcerative corn or callous (Chronic) Malnutrition (Chronic) Deformity of metatarsal (Chronic) Delayed wound healing (Chronic) Diabetic ulcer of left foot with muscle involvement without evidence of necrosis (Chronic) Ulcer of right foot with fat layer exposed (Chronic) 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) Diabetic foot ulcer (Chronic) Chronic ulcer of left foot with fat layer exposed (Chronic) Endometriosis (Chronic) Diabetes (Chronic) 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) Ulcer of right foot with necrosis of muscle (Chronic) Obesity (BMI 30.0-34.9) (Chronic) Diabetes mellitus, type II (Chronic) Allergies/Adverse Reactions: Allergies clindamycin Allergy (Verified 08/15/18 12:04) Hives vancomycin Allergy (Verified 08/15/18 12:04) Hives/makes my heart race Home Medications: Ambulatory Orders Medication Instructions Recorded Cholecalciferol (Vitamin D3) 2,000 unit PO DAILY 03/10/18 [Vitamin D3] insulin glargine (U-100) 100 68 unit SUBCUT QHS #15 ml 08/02/18 unit/mL (3 mL) subcutaneous pen insulin lispro (U- 100) 100 14 unit SC TID #15 ml 08/02/18 unit/mL subcutaneous pen Maternal Family History: Family History (Last Reviewed 08/02/18 @ 14:19 by Jocelyn Barlow) Grandfather Diabetes Leukemia Grandmother Diabetes Mother Diabetes Hypertension Father Prostate cancer Grandfather Myocardial infarction Family History: - - Patient notes a maternal family history of diabetes. Paternal Family History: Family History (Last Reviewed 08/02/18 @ 14:19 by Jocelyn Barlow) Grandfather Diabetes Leukemia Grandmother Diabetes Mother Diabetes Hypertension Father Prostate cancer Grandfather Myocardial infarction Family History: - - Patient notes a paternal family history of prostate cancer, hypertension and diabetes. Smoking Status: Never smoker Physical Exam Vital Signs Temp Pulse Resp BP 97.7 F L 120 H 16 139/74 H 11/14/18 11:12 11/14/18 11:12 11/14/18 11:12 11/14/18 11:12 General: Alert, Oriented x3, Cooperative, No apparent distress, Well developed, Well nourished HEENT: Atraumatic, PERRLA, EOMI, Normocephalic Lungs: Normal air movement Psych/Mental Status: Normal Affect, Appropriate, Alert and oriented to time, place, person, mood and affect Assessment/Plan Active Problems (Last Reviewed 08/02/18 @ 14:19 by Jocelyn Barlow) Malnutrition (Chronic) Delayed wound healing (Chronic) Diabetic ulcer of left foot with muscle involvement without evidence of necrosis (Chronic) Ulcer of right foot with fat layer exposed (Chronic) 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
[2018-11-15 09:31] LABS: Bedside Glucose 157 mg/dL (70-110)
[2018-11-15 11:31] LABS: Bedside Glucose 113 mg/dL (70-110)
[2018-11-15 11:36] VITALS: BP 123/67; PULSE 89; RESP 18; TEMP 36.3; BMI 36.7
--- NOTE | 2018-11-15 11:47 | PN.PCM_ITS ---
(1) Chronic ulcer of left foot with necrosis of muscle Status: Chronic Code(s): L97.523 - Non-pressure chronic ulcer of other part of left foot with necrosis of muscle (2) Cellulitis Status: Resolved Qualifiers: Site of cellulitis: extremity Site of cellulitis of extremity: lower extremity Laterality: left Qualified Code(s): L03.116 - Cellulitis of left lower limb Code(s): L03.90 - Cellulitis, unspecified (3) Ulcer of right foot with fat layer exposed Status: Resolved Code(s): L97.512 - Non-pressure chronic ulcer of other part of right foot with fat layer exposed (4) Diabetic ulcer of left foot with muscle involvement without evidence of necrosis Status: Chronic Qualifiers: Diabetic foot ulcer location: midfoot Diabetes mellitus type: type 2 Qu alified Code(s): E11.621 - Type 2 diabetes mellitus with foot ulcer; L97.425 - Non-pressure chronic ulcer of left heel and midfoot with muscle involvement without evidence of necrosis Code(s): E11.621 - Type 2 diabetes mellitus with foot ulcer; L97.525 - Non- pressure chronic ulcer of other part of left foot with muscle involvement without evidence of necrosis (5) Malnutrition Status: Chronic Code(s): E46 - Unspecified protein-calorie malnutrition (6) Delayed wound healing Status: Chronic Code(s): T14.8XXD - Other injury of unspecified body region, subsequent encounter (7) Type 2 diabetes mellitus with diabetic polyneuropathy Status: Chronic Code(s): E11.42 - Type 2 diabetes mellitus with diabetic polyneuropathy Type of Wound Chief Complaint: Diabetic left foot ulceration, Camacho Grade 3 History of Wound: This 28-year-old female with uncontrolled diabetes returns to clinic for follow-up chronic left foot ulcer. she denies subjective fever, chill, nausea, vomiting. She has been compliant with the dressing recommendations. She does wear her forefoot offloading wide shoes. She continues hyperbaric oxygen therapy sessions and this is going well so far. She denies specific trauma. She relates increased swelling and some redness to her left foot. She denies older injury. She is planning to transfer back to a wound center closer to her house within the next couple of weeks now that her classes are completed. She has completed her oral antibiotic course of Augmentin and ciprofloxacin as advised for treatment of cellulitis is without any diarrhea or other known side effects. Her redness, swelling, and foot discomfort in the left lower extremity have resolved. She denies odor. She relates that she needs to get a new phone and is not surprised to hear that I could not reach her this past week. Progress of Wound: Improving left. Healed right - Physical Exam Vital Signs Temp Pulse Resp BP 97.3 F L 89 18 123/67 H 11/15/18 11:36 11/15/18 11:36 11/15/18 11:36 11/15/18 11:36 General: Alert, Oriented x3, Cooperative, No apparent distress Extremities: No cyanosis, Capillary Refill Less than 3 Seconds, No Calf Tend erness - Negative, present bilateral, Diminished Peripheral Pulses, Edema - Decreased left Skin: Ulcer/ Wound - No purulence, erythema, streaking, odor, or infection. There is no visualized tendon of the flexor hallucis longus in the left foot. Full epithelialization is noted to the sub-first metatarsal head ulcer on the right foot. Her skin is atrophic and hairless bilateral Wound Measurements and Assessment WC - Nurse 1 - General Ulcer Measurement Start: 10/18/18 13:49 Freq: Status: Active Protocol: Activity Type Activity Date Activity User E-Sign Co-Sign Detail Recorded Client Recorded Date Recorded By Document 11/15/18 11:36 [id number] 11/15/18 11:39 11/15/18 11:36 Wound Center Nurse 1 [Ulcer Assessment] 8 right plantar -Combined with other wound No -Current Size (cm) - Length 0.1 -Current Size (cm) - Width 0.1 -Current Size (cm) - Depth 0.1 -Total Square Cm 0.01 -Photo Taken Yes -Epithelialization Large 67-100% -Tunneling No -Undermining/Tunneling No -Circular Undermining No -Exudate Amt None Present -Granulation Amt None Present (0 %) -Necrosis Amt None Present (0 %) -Structure Exposed N/A -Texture (Cheri-wound Skin Appearance) Assessed Callus -Moisture (Cheri-wound Skin Appearance Assessed ) Dry/Scaly -Color (Cheri-wound Skin Appearance) Assessed -Temperature (Cheri-wound Skin No Abnormality Appearance) (Pt Warm) -Tenderness on Palpation (Cheri-wound No Skin Appearance) -Ulcer Cleansing Rinsed/ Irrigated with Saline -Foul Odor after Cleansing No #1 LEFT PLANTAR -Combined with other wound No -Current Size (cm) - Length 3.5 -Current Size (cm) - Width 2.2 -Current Size (cm) - Depth 1.0 -Total Square Cm 7.70 -Photo Taken No -Epithelialization Small 1-33% -Tunneling No -Undermining/Tunneling No -Circular Undermining No -Exudate Amt Large -Exudate Type Serosanguineous -Wound Margin Flat & Intact -Granulation Amt Large (67-100%) -Granulation Quality Red -Slough/Fibrin Yes -Necrosis Amt Small (1-33%) -Necrotic Tissue Type Adherent Slough -Structure Exposed N/A -Texture (Cheri-wound Skin Appearance) Assessed Callus -Moisture (Cheri-wound Skin Appearance Assessed ) Dry/Scaly -Color (Cheri-wound Skin Appearance) Assessed -Temperature (Cheri-wound Skin No Abnormality Appearance) (Pt Warm) -Tenderness on Palpation (Cheri-wound No Skin Appearance) -Ulcer Cleansing Rinsed/ Irrigated with Saline -Foul Odor after Cleansing No -Anesthetic Used 4% Lidocaine Solution [Edema Assessment] -Lower Limb Edema Present NA Musculoskeletal: No Tenderness to Palpation of Joints or Extremities, Muscle Wasting Neurological: - - Lack of normal epicritic sensation light touch consistent neuropathy bilateral lower extremities Psych/Mental Status: Normal Affect, Appropriate Debridement Note Post-Debridement Measurements/Treatment WC - Nurse 2 - General Ulcer CM Notes Start: 10/18/18 13:49 Freq: Status: Active Protocol: Activity Type Activity Date Activity User E-Sign Co-Sign Detail Recorded Client Recorded Date Recorded By Document 10/18/18 16:10 [id number] 10/18/18 16:14 Document 10/25/18 13:20 DL [id number] 10/25/18 13:23 DL Document 11/01/18 14:30 AN [id number] 11/01/18 14:35 AN Document 11/08/18 09:43 AN [id number] 11/08/18 09:47 AN 10/18/18 10/25/18 11/01/18 16:10 13:20 14:30 Wound Center Nurse 2 8 right plantar -Time -Correct Patient -Correct Side, Site, Position -Correct Procedure -Procedure Performed -Type of Procedure -Clinical Debridement -Post Debridement Size (cm) - Length -Post Debridement Size (cm) - Width -Post Debridement Size (cm) - Depth -Total Square Cm -Wound/Ulcer Outcome -Ulcer Cleansing -Bleeding Controlled with -Type of Offloading -Treatment Response #1 LEFT PLANTAR -Time 16:12 13:20 14:33 -Correct Patient Yes Yes Yes -Correct Side, Site, Position Yes Yes Yes -Correct Procedure Yes Yes Yes -Procedure Performed Yes Yes Yes -Type of Procedure Debridement Debridement Debridement -Clinical Debridement Subcutaneous Subcutaneous Subcutaneous -Post Debridement Size (cm) - Length 4.5 5.2 4.3 -Post Debridement Size (cm) - Width 2.8 3.5 0.7 -Post Debridement Size (cm) - Depth 0.5 0.1 0.3 -Total Square Cm 12.60 18.20 3.01 -Wound/Ulcer Outcome Not Healed Not Healed Not Healed -Ulcer Cleansing Rinsed/ Rinsed/ Irrigated with Irrigated with Saline Saline -Foul Odor after Cleansing No No -Bioengineered Tissue No No -Bleeding Controlled with Pressure Pressure -Offloading Yes Yes Yes -Type of Offloading Surgical Shoe Surgical Shoe Wedge Shoe -Treatment Response Procedure Procedure Procedure Tolerated Well Tolerated Well Tolerated Well Pain Scale: 0-10 Numeric Is Patient Pain Free? Yes Yes Yes 11/08/18 09:43 Wound Center Nurse 2 8 right plantar -Time 09:47 -Correct Patient Yes -Correct Side, Site, Position Yes -Correct Procedure Yes -Procedure Performed Yes -Type of Procedure Debridement -Clinical Debridement Subcutaneous -Post Debridement Size (cm) - Length 0.2 -Post Debridement Size (cm) - Width 0.2 -Post Debridement Size (cm) - Depth 0.1 -Total Square Cm 0.04 -Wound/Ulcer Outcome Not Healed -Ulcer Cleansing Rinsed/ Irrigated with Saline -Bleeding Controlled with Pressure -Type of Offloading Surgical Shoe -Treatment Response Procedure Tolerated Well #1 LEFT PLANTAR -Time 09:46 -Correct Patient Yes -Correct Side, Site, Position Yes -Correct Procedure Yes -Procedure Performed Yes -Type of Procedure Debridement -Clinical Debridement Subcutaneous -Post Debridement Size (cm) - Length 4.1 -Post Debridement Size (cm) - Width 2.8 -Post Debridement Size (cm) - Depth 0.7 -Total Square Cm 11.48 -Wound/Ulcer Outcome Not Healed -Ulcer Cleansing -Foul Odor after Cleansing -Bioengineered Tissue -Bleeding Controlled with Pressure -Offloading Yes -Type of Offloading Surgical Shoe -Treatment Response Procedure Tolerated Well Pain Scale: 0-10 Numeric Is Patient Pain Free? Yes Wound debrided: plantar foot Laterality: Left Wound Grade/Stage: grade 3 Type of Debridement: Excisional debridement Anesthesia Used: 5% Lidocaine Gel Depth: in the subcutaneous layer Percentage of wound debrided: 100 Instrument Used: #15 blade Tissue Removed: fibrous, devitalized subcutaneous, biofilm, slough Severity: Fat Layer Exposed Amount of bleeding with debridement: Mild Bleeding Controlled with: Pressure Patient tolerated procedure well Assessment/Plan Clinical Impression(s) from Imaging Studies Foot X-Ray 11/08/18 12:40 IMPRESSION: No evidence of osteomyelitis. No fracture. A deformity involving the proximal half of the proximal phalanx of the fourth toe and the distal half of the fourth metatarsal bone. These changes may be from chronic infection or previous surgery. A 1.6 cm area of ulceration in the plantar surface of the forefoot Electronically Signed: Jere Hameed MD at 6:55 EDT Tel , Service support , Assessment: see above diagnoses Plan: I reviewed and discussed her care plan today. All of her ulcers to the right foot are healed today with full epithelialization. Debridement was performed today as noted in the clinical panel to the left foot. It is noted the tendon that was previously visualized on her left foot is no longer visualized and local inflammation and infection signs have resolved. A dressing consisting of fibricol was applied. To change daily at home as advised to left foot. She was started on Augmentin and ciprofloxacin last week for left foot infection and denies side effects. It is noted she did have a white blood cell count of over 15 and her x-rays were negative for soft tissue emphysema, gross osseous destruction, foreign body or other acute injuries. Her cultures did demonstrate Corynebacterium striatum, Staphylococcus aureus, and strep agalactiae. To continue to follow-up for medical management with PCP and en docrinology. She has continued hyperbaric oxygen therapy sessions and this is going well. Additional sessions were recommended when she went for her hyperbaric oxygen therapy reassessment session with Dr. Shepard. the patient was educated on the importance of diet on wound healing and instructed to increase protein and vitamin C intake. To use assistive devices. To continue follow-up with nutrition services. Her most recent noninvasive vascular studies were reviewed from April 2018 with bilateral ankle-brachial indices 1.23. Her results demonstrated normal arterial perfusion. Her venous duplex Doppler studies with reflux evaluation were also reviewed and the results were discussed. 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 I do recommend future vascular surgeon referral to see if intervention may be completed. She will consider venous intervention. To follow-up with the wound healing center in 1 week. Answered her questions.
[2018-11-15 11:48] VITALS: BP 123/67; BP 124/68; PULSE 101; PULSE 89; RESP 16; TEMP 36.3; TEMP 36.6
--- NOTE | 2018-11-15 13:47 | PCM.HBO.PN ---
History of Present Illness Presenting Chief Complaint: Diabetic left foot ulceration, Camacho Grade 3 DON COTTO is a 28 year old currently undergoing hyperbaric oxygen therapy for diabetic left foot ulceration,Camacho Grade 3 Progress: Today's session represents the 35th of 40 planned sessions of hyperbaric oxygen therapy. Today's session was well tolerated. Tolerance of hyperbaric oxygen therapy: Hyperbaric oxygen therapy was administered as per the facility protocol. The patient tolerated hyperbaric oxygen therapy well, without complaints or complications. Upon emergence from the hyperbaric chamber, the patient's vital signs remained stable. The patient was discharged in good condition. See documented blood glucose levels. Past Medical History Chronic Problems (Last Reviewed 08/02/18 @ 14:19 by Jocelyn Barlow) Dehiscence of closure of subcutaneous tissue (Chronic) Hallux limitus of right foot (Chronic) Abscess of right foot (Chronic) Diabetes mellitus type 2, uncontrolled, with complications (Chronic) Venous insufficiency (Chronic) Hammer toe of right foot (Chronic) Hammer toe of left foot (Chronic) Pre-ulcerative corn or callous (Chronic) Malnutrition (Chronic) Deformity of metatarsal (Chronic) Delayed wound healing (Chronic) Diabetic ulcer of left foot with muscle involvement without evidence of necrosis (Chronic) 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) Diabetic foot ulcer (Chronic) Chronic ulcer of left foot with fat layer exposed (Chronic) Endometriosis (Chronic) Diabetes (Chronic) 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) Ulcer of right foot with necrosis of muscle (Chronic) Obesity (BMI 30.0-34.9) (Chronic) Diabetes mellitus, type II (Chronic) Allergies/Adverse Reactions: Allergies clindamycin Allergy (Verified 08/15/18 12:04) Hives vancomycin Allergy (Verified 08/15/18 12:04) Hives/makes my heart race Home Medications: Ambulatory Orders Medication Instructions Recorded Cholecalciferol (Vitamin D3) 2,000 unit PO DAILY 03/10/18 [Vitamin D3] insulin glargine (U-100) 100 68 unit SUBCUT QHS #15 ml 08/02/18 unit/mL (3 mL) subcutaneous pen insulin lispro (U- 100) 100 14 unit SC TID #15 ml 08/02/18 unit/mL subcutaneous pen Maternal Family History: Family History (Last Reviewed 08/02/18 @ 14:19 by Jocelyn Barlow) Grandfather Diabetes Leukemia Grandmother Diabetes Mother Diabetes Hypertension Father Prostate cancer Grandfather Myocardial infarction Family History: - - Patient notes a maternal family history of diabetes. Paternal Family History: Family History (Last Reviewed 08/02/18 @ 14:19 by Jocelyn Barlow) Grandfather Diabetes Leukemia Grandmother Diabetes Mother Diabetes Hypertension Father Prostate cancer Grandfather Myocardial infarction Family History: - - Patient notes a paternal family history of prostate cancer, hypertension and diabetes. Smoking Status: Never smoker Physical Exam Vital Signs Temp Pulse Resp BP 97.8 F 101 H 16 124/68 H 11/15/18 11:48 11/15/18 11:48 11/15/18 11:48 11/15/18 11:48 General: Alert, Oriented x3, Cooperative, No apparent distress HEENT: Atraumatic, Normocephalic Lungs: Normal air movement Psych/Mental Status: Normal Affect Assessment/Plan Active Problems (Last Reviewed 08/02/18 @ 14:19 by Jocelyn Barlow) Malnutrition (Chronic) Delayed wound healing (Chronic) Diabetic ulcer of left foot with muscle involvement without evidence of necrosis (Chronic) 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) Chronic ulcer of left foot with fat layer exposed (Chronic) Type 2 diabetes mellitus with diabetic polyneuropathy (Chronic) The patient appears to be tolerating hyperbaric oxygen therapy well, which will be continued as per the patient's medical plan.
[2018-11-16 08:56] LABS: Bedside Glucose 205 mg/dL (70-110)
[2018-11-16 09:25] VITALS: BP 123/63; BP 138/68; PULSE 83; PULSE 97; RESP 16; RESP 18; TEMP 36.2; TEMP 36.6
[2018-11-16 11:11] LABS: Bedside Glucose 196 mg/dL (70-110)
--- NOTE | 2018-11-16 11:32 | PCM.HBO.PN ---
History of Present Illness Presenting Chief Complaint: Diabetic left foot ulceration, Camacho Grade 3 DON COTTO is a 28 year old currently undergoing hyperbaric oxygen therapy for diabetic left foot ulceration,Camacho Grade 3 Progress: Today's session represents the 36th of 40 planned sessions of hyperbaric oxygen therapy. Today's session was well tolerated. Tolerance of hyperbaric oxygen therapy: Hyperbaric oxygen therapy was administered as per the facility protocol. The patient tolerated hyperbaric oxygen therapy well, without complaints or complications. Upon emergence from the hyperbaric chamber, the patient's vital signs remained stable. The patient was discharged in good condition. See documented blood glucose levels. Past Medical History Chronic Problems (Last Reviewed 08/02/18 @ 14:19 by Jocelyn Barlow) Dehiscence of closure of subcutaneous tissue (Chronic) Hallux limitus of right foot (Chronic) Abscess of right foot (Chronic) Diabetes mellitus type 2, uncontrolled, with complications (Chronic) Venous insufficiency (Chronic) Hammer toe of right foot (Chronic) Hammer toe of left foot (Chronic) Pre-ulcerative corn or callous (Chronic) Malnutrition (Chronic) Deformity of metatarsal (Chronic) Delayed wound healing (Chronic) Diabetic ulcer of left foot with muscle involvement without evidence of necrosis (Chronic) 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) Diabetic foot ulcer (Chronic) Chronic ulcer of left foot with fat layer exposed (Chronic) Endometriosis (Chronic) Diabetes (Chronic) 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) Ulcer of right foot with necrosis of muscle (Chronic) Obesity (BMI 30.0-34.9) (Chronic) Diabetes mellitus, type II (Chronic) Allergies/Adverse Reactions: Allergies clindamycin Allergy (Verified 08/15/18 12:04) Hives vancomycin Allergy (Verified 08/15/18 12:04) Hives/makes my heart race Home Medications: Ambulatory Orders Medication Instructions Recorded Cholecalciferol (Vitamin D3) 2,000 unit PO DAILY 03/10/18 [Vitamin D3] insulin glargine (U-100) 100 68 unit SUBCUT QHS #15 ml 08/02/18 unit/mL (3 mL) subcutaneous pen insulin lispro (U- 100) 100 14 unit SC TID #15 ml 08/02/18 unit/mL subcutaneous pen Maternal Family History: Family History (Last Reviewed 08/02/18 @ 14:19 by Jocelyn Barlow) Grandfather Diabetes Leukemia Grandmother Diabetes Mother Diabetes Hypertension Father Prostate cancer Grandfather Myocardial infarction Family History: - - Patient notes a maternal family history of diabetes. Paternal Family History: Family History (Last Reviewed 08/02/18 @ 14:19 by Jocelyn Barlow) Grandfather Diabetes Leukemia Grandmother Diabetes Mother Diabetes Hypertension Father Prostate cancer Grandfather Myocardial infarction Family History: - - Patient notes a paternal family history of prostate cancer, hypertension and diabetes. Smoking Status: Never smoker Physical Exam Vital Signs Temp Pulse Resp BP 97.9 F 97 18 138/68 H 11/16/18 09:25 11/16/18 09:25 11/16/18 09:25 11/16/18 09:25 General: Alert, Oriented x3, Cooperative, No apparent distress HEENT: Atraumatic, Normocephalic Lungs: Normal air movement Psych/Mental Status: Normal Affect Assessment/Plan Active Problems (Last Reviewed 08/02/18 @ 14:19 by Jocelyn Barlow) Malnutrition (Chronic) Delayed wound healing (Chronic) Diabetic ulcer of left foot with muscle involvement without evidence of necrosis (Chronic) 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) Chronic ulcer of left foot with fat layer exposed (Chronic) Type 2 diabetes mellitus with diabetic polyneuropathy (Chronic) The patient appears to be tolerating hyperbaric oxygen therapy well, which will be continued as per the patient's medical plan.
[2018-11-17 09:01] LABS: Bedside Glucose 167 mg/dL (70-110)
[2018-11-17 09:22] VITALS: BP 129/68; BP 140/84; PULSE 108; PULSE 86; RESP 16; RESP 18; TEMP 36.7
--- NOTE | 2018-11-17 10:23 | PCM.HBO.PN ---
History of Present Illness Presenting Chief Complaint: Diabetic left foot ulceration, Camacho Grade 3 DON COTTO is a 28 year old currently undergoing hyperbaric oxygen therapy for diabetic left foot ulceration,Camacho Grade 3 Progress: Today's session represents the 36th of 40 planned sessions of hyperbaric oxygen therapy. Today's session was well tolerated. Tolerance of hyperbaric oxygen therapy: Hyperbaric oxygen therapy was administered as per the facility protocol. The patient tolerated hyperbaric oxygen therapy well, without complaints or complications. Upon emergence from the hyperbaric chamber, the patient's vital signs remained stable. The patient was discharged in good condition. See documented blood glucose levels. Past Medical History Chronic Problems (Last Reviewed 08/02/18 @ 14:19 by Jocelyn Barlow) Dehiscence of closure of subcutaneous tissue (Chronic) Hallux limitus of right foot (Chronic) Abscess of right foot (Chronic) Diabetes mellitus type 2, uncontrolled, with complications (Chronic) Venous insufficiency (Chronic) Hammer toe of right foot (Chronic) Hammer toe of left foot (Chronic) Pre-ulcerative corn or callous (Chronic) Malnutrition (Chronic) Deformity of metatarsal (Chronic) Delayed wound healing (Chronic) Diabetic ulcer of left foot with muscle involvement without evidence of necrosis (Chronic) 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) Diabetic foot ulcer (Chronic) Chronic ulcer of left foot with fat layer exposed (Chronic) Endometriosis (Chronic) Diabetes (Chronic) 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) Ulcer of right foot with necrosis of muscle (Chronic) Obesity (BMI 30.0-34.9) (Chronic) Diabetes mellitus, type II (Chronic) Allergies/Adverse Reactions: Allergies clindamycin Allergy (Verified 08/15/18 12:04) Hives vancomycin Allergy (Verified 08/15/18 12:04) Hives/makes my heart race Home Medications: Ambulatory Orders Medication Instructions Recorded Cholecalciferol (Vitamin D3) 2,000 unit PO DAILY 03/10/18 [Vitamin D3] insulin glargine (U-100) 100 68 unit SUBCUT QHS #15 ml 08/02/18 unit/mL (3 mL) subcutaneous pen insulin lispro (U- 100) 100 14 unit SC TID #15 ml 08/02/18 unit/mL subcutaneous pen Maternal Family History: Family History (Last Reviewed 08/02/18 @ 14:19 by Jocelyn Barlow) Grandfather Diabetes Leukemia Grandmother Diabetes Mother Diabetes Hypertension Father Prostate cancer Grandfather Myocardial infarction Family History: - - Patient notes a maternal family history of diabetes. Paternal Family History: Family History (Last Reviewed 08/02/18 @ 14:19 by Jocelyn Barlow) Grandfather Diabetes Leukemia Grandmother Diabetes Mother Diabetes Hypertension Father Prostate cancer Grandfather Myocardial infarction Family History: - - Patient notes a paternal family history of prostate cancer, hypertension and diabetes. Smoking Status: Never smoker Physical Exam Vital Signs Temp Pulse Resp BP 98.0 F 108 H 18 129/68 H 11/17/18 09:22 11/17/18 09:22 11/17/18 09:22 11/17/18 09:22 Assessment/Plan Active Problems (Last Reviewed 08/02/18 @ 14:19 by Jocelyn Barlow) Malnutrition (Chronic) Delayed wound healing (Chronic) Diabetic ulcer of left foot with muscle involvement without evidence of necrosis (Chronic) 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) Chronic ulcer of left foot with fat layer exposed (Chronic) Type 2 diabetes mellitus with diabetic polyneuropathy (Chronic) The patient appears to be tolerating hyperbaric oxygen therapy well, which will be continued as per the patient's medical plan.
[2018-11-17 11:00] LABS: Bedside Glucose 195 mg/dL (70-110)
== END 2018-11-17 23:59 ==
LOC: WC 09:00
PROVIDERS: Family Provider Internal Medicine; PCP Internal Medicine; Referring Provider Podiatrist; Visit Provider Podiatrist
DX: E11.621 Type 2 diabetes mellitus with foot ulcer (principal); E11.42 Type 2 diabetes mellitus with diabetic polyneuropathy; E11.65 Type 2 diabetes mellitus with hyperglycemia; R60.0 Localized edema; L97.522 Non-pressure chronic ulcer of other part of left foot with fat layer exposed; L97.512 Non-pressure chronic ulcer of other part of right foot with fat layer exposed
CPT/HCPCS: 11042; 11043; 36415; 73630; 80053; 82962; 85025; 85652; 86140; 87015; 87070; 87075; 87077; 87101; 87116; 87186; 87205; 87206; 87640; 99183; 99212; G0277; G0463

== ENCOUNTER 2018-11-22 09:00 | Outpatient (RCR) | payer OTHER, SELFPAY ==
[2018-11-15 11:36] VITALS: BMI 36.7
[2018-11-18 00:48] VITALS: BP 140/84; PULSE 86; RESP 16; TEMP 36.7
[2018-11-20 08:55] LABS: Bedside Glucose 186 mg/dL (70-110)
--- NOTE | 2018-11-20 09:24 | PCM.HBO.PN ---
History of Present Illness Date of Service: 11/20/18 Presenting Chief Complaint: Diabetic left foot ulceration, Camacho Grade 3 DON COTTO is a 28 year old currently undergoing hyperbaric oxygen therapy for diabetic left foot ulceration,Camacho Grade 3. Progress: Today's session represents the 38th of 40 planned sessions of hyperbaric oxygen therapy. Today's session was well tolerated. Tolerance of hyperbaric oxygen therapy: Hyperbaric oxygen therapy was administered as per the facility protocol. The patient tolerated hyperbaric oxygen therapy well, without complaints or complications. Upon emergence from the hyperbaric chamber, the patient's vital signs remained stable. The patient was discharged in good condition. See documented blood glucose levels. Past Medical History Chronic Problems (Last Reviewed 08/02/18 @ 14:19 by Jocelyn Barlow) Dehiscence of closure of subcutaneous tissue (Chronic) Hallux limitus of right foot (Chronic) Abscess of right foot (Chronic) Diabetes mellitus type 2, uncontrolled, with complications (Chronic) Venous insufficiency (Chronic) Hammer toe of right foot (Chronic) Hammer toe of left foot (Chronic) Pre-ulcerative corn or callous (Chronic) Malnutrition (Chronic) Deformity of metatarsal (Chronic) Delayed wound healing (Chronic) Diabetic ulcer of left foot with muscle involvement without evidence of necrosis (Chronic) 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) Diabetic foot ulcer (Chronic) Chronic ulcer of left foot with fat layer exposed (Chronic) Endometriosis (Chronic) Diabetes (Chronic) 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) Ulcer of right foot with necrosis of muscle (Chronic) Obesity (BMI 30.0-34.9) (Chronic) Diabetes mellitus, type II (Chronic) Allergies/Adverse Reactions: Allergies clindamycin Allergy (Verified 08/15/18 12:04) Hives vancomycin Allergy (Verified 08/15/18 12:04) Hives/makes my heart race Home Medications: Ambulatory Orders Medication Instructions Recorded Cholecalciferol (Vitamin D3) 2,000 unit PO DAILY 03/10/18 [Vitamin D3] insulin glargine (U-100) 100 68 unit SUBCUT QHS #15 ml 08/02/18 unit/mL (3 mL) subcutaneous pen insulin lispro (U- 100) 100 14 unit SC TID #15 ml 08/02/18 unit/mL subcutaneous pen Maternal Family History: Family History (Last Reviewed 08/02/18 @ 14:19 by Jocelyn Barlow) Grandfather Diabetes Leukemia Grandmother Diabetes Mother Diabetes Hypertension Father Prostate cancer Grandfather Myocardial infarction Family History: - - Patient notes a maternal family history of diabetes. Paternal Family History: Family History (Last Reviewed 08/02/18 @ 14:19 by Jocelyn Barlow) Grandfather Diabetes Leukemia Grandmother Diabetes Mother Diabetes Hypertension Father Prostate cancer Grandfather Myocardial infarction Family History: - - Patient notes a paternal family history of prostate cancer, hypertension and diabetes. Smoking Status: Never smoker Physical Exam Vital Signs Temp Pulse Resp BP 98.0 F 86 16 140/84 H 11/18/18 00:48 11/18/18 00:48 11/18/18 00:48 11/18/18 00:48 General: Alert, Oriented x3, Cooperative, No apparent distress HEENT: Atraumatic, TM's Clear Lungs: Clear to auscultation, Normal air movement Cardiovascular: Regular rate, Regular Rhythm Psych/Mental Status: Normal Affect, Appropriate, Alert and oriented to time, place, person, mood and affect Assessment/Plan The patient appears to be tolerating hyperbaric oxygen therapy well, which will be continued as per the patient's medical plan.
[2018-11-20 11:10] LABS: Bedside Glucose 191 mg/dL (70-110)
[2018-11-20 11:40] VITALS: BP 136/70; BP 137/78; PULSE 104; PULSE 90; RESP 16; RESP 18; TEMP 36.4
[2018-11-21 09:06] LABS: Bedside Glucose 135 mg/dL (70-110)
[2018-11-21 09:18] VITALS: BP 121/67; BP 138/76; PULSE 102; PULSE 90; RESP 16; RESP 18; TEMP 36.2; TEMP 36.6
[2018-11-21 11:05] LABS: Bedside Glucose 223 mg/dL (70-110)
--- NOTE | 2018-11-21 12:30 | PCM.HBO.PN ---
History of Present Illness Presenting Chief Complaint: Diabetic left foot ulceration, Camacho Grade 3 DON COTTO is a 28 year old currently undergoing hyperbaric oxygen therapy for diabetic left foot ulceration,Camacho Grade 3. Progress: Today's session represents the 39th of 40 planned sessions of hyperbaric oxygen therapy. Today's session was well tolerated. Tolerance of hyperbaric oxygen therapy: Hyperbaric oxygen therapy was administered as per the facility protocol. The patient tolerated hyperbaric oxygen therapy well, without complaints or complications. Upon emergence from the hyperbaric chamber, the patient's vital signs remained stable. The patient was discharged in good condition. See documented blood glucose levels. Hyperbaric oxygen therapy was administered to 2 israel of pressure, with no air breaks. Past Medical History Chronic Problems (Last Reviewed 08/02/18 @ 14:19 by Jocelyn Barlow) Dehiscence of closure of subcutaneous tissue (Chronic) Hallux limitus of right foot (Chronic) Abscess of right foot (Chronic) Diabetes mellitus type 2, uncontrolled, with complications (Chronic) Venous insufficiency (Chronic) Hammer toe of right foot (Chronic) Hammer toe of left foot (Chronic) Pre-ulcerative corn or callous (Chronic) Malnutrition (Chronic) Deformity of metatarsal (Chronic) Delayed wound healing (Chronic) Diabetic ulcer of left foot with muscle involvement without evidence of necrosis (Chronic) 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) Diabetic foot ulcer (Chronic) Chronic ulcer of left foot with fat layer exposed (Chronic) Endometriosis (Chronic) Diabetes (Chronic) 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) Ulcer of right foot with necrosis of muscle (Chronic) Obesity (BMI 30.0-34.9) (Chronic) Diabetes mellitus, type II (Chronic) Allergies/Adverse Reactions: Allergies clindamycin Allergy (Verified 08/15/18 12:04) Hives vancomycin Allergy (Verified 08/15/18 12:04) Hives/makes my heart race Home Medications: Ambulatory Orders Medication Instructions Recorded Cholecalciferol (Vitamin D3) 2,000 unit PO DAILY 03/10/18 [Vitamin D3] insulin glargine (U-100) 100 68 unit SUBCUT QHS #15 ml 08/02/18 unit/mL (3 mL) subcutaneous pen insulin lispro (U- 100) 100 14 unit SC TID #15 ml 08/02/18 unit/mL subcutaneous pen Maternal Family History: Family History (Last Reviewed 08/02/18 @ 14:19 by Jocelyn Barlow) Grandfather Diabetes Leukemia Grandmother Diabetes Mother Diabetes Hypertension Father Prostate cancer Grandfather Myocardial infarction Family History: - - Patient notes a maternal family history of diabetes. Paternal Family History: Family History (Last Reviewed 08/02/18 @ 14:19 by Jocelyn Barlow) Grandfather Diabetes Leukemia Grandmother Diabetes Mother Diabetes Hypertension Father Prostate cancer Grandfather Myocardial infarction Family History: - - Patient notes a paternal family history of prostate cancer, hypertension and diabetes. Smoking Status: Never smoker Physical Exam Vital Signs Temp Pulse Resp BP 97.9 F 102 H 18 138/76 H 11/21/18 09:18 11/21/18 09:18 11/21/18 09:18 11/21/18 09:18 General: Alert, Oriented x3, Cooperative, No apparent distress, Well developed, Well nourished HEENT: Atraumatic, PERRLA, EOMI, Normocephalic Lungs: Normal air movement Psych/Mental Status: Normal Affect, Appropriate, Alert and oriented to time, place, person, mood and affect Assessment/Plan The patient appears to be tolerating hyperbaric oxygen therapy well, which will be continued as per the patient's medical plan.
[2018-11-22 08:56] LABS: Bedside Glucose 107 mg/dL (70-110)
[2018-11-22 09:36] LABS: Bedside Glucose 160 mg/dL (70-110)
[2018-11-22 10:37] VITALS: BP 124/66; BP 127/70; PULSE 94; PULSE 97; RESP 16; RESP 18; TEMP 36.2; TEMP 36.7
[2018-11-22 11:26] LABS: Bedside Glucose 157 mg/dL (70-110)
[2018-11-22 11:34] VITALS: BP 127/70; PULSE 97; RESP 16; TEMP 36.1; BMI 36.7
--- NOTE | 2018-11-22 12:03 | PCM.HBO.PN ---
History of Present Illness Presenting Chief Complaint: Diabetic left foot ulceration, Camacho Grade 3 DON COTTO is a 28 year old currently undergoing hyperbaric oxygen therapy for diabetic left foot ulceration,Camacho Grade 3. Progress: Today's session represents the 40th of 40 planned sessions of hyperbaric oxygen therapy. Today's session was well tolerated and is here final session here Tolerance of hyperbaric oxygen therapy: Hyperbaric oxygen therapy was administered as per the facility protocol. The patient tolerated hyperbaric oxygen therapy well, without complaints or complications. Upon emergence from the hyperbaric chamber, the patient's vital signs remained stable. The patient was discharged in good condition. See documented blood glucose levels. Hyperbaric oxygen therapy was administered to 2 israel of pressure, with no air breaks. Past Medical History Chronic Problems (Last Reviewed 08/02/18 @ 14:19 by Jocelyn Barlow) Dehiscence of closure of subcutaneous tissue (Chronic) Hallux limitus of right foot (Chronic) Abscess of right foot (Chronic) Diabetes mellitus type 2, uncontrolled, with complications (Chronic) Venous insufficiency (Chronic) Hammer toe of right foot (Chronic) Hammer toe of left foot (Chronic) Pre-ulcerative corn or callous (Chronic) Malnutrition (Chronic) Deformity of metatarsal (Chronic) Delayed wound healing (Chronic) Diabetic ulcer of left foot with muscle involvement without evidence of necrosis (Chronic) 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) Diabetic foot ulcer (Chronic) Chronic ulcer of left foot with fat layer exposed (Chronic) Endometriosis (Chronic) Diabetes (Chronic) 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) Ulcer of right foot with necrosis of muscle (Chronic) Obesity (BMI 30.0-34.9) (Chronic) Diabetes mellitus, type II (Chronic) Allergies/Adverse Reactions: Allergies clindamycin Allergy (Verified 08/15/18 12:04) Hives vancomycin Allergy (Verified 08/15/18 12:04) Hives/makes my heart race Home Medications: Ambulatory Orders Medication Instructions Recorded Cholecalciferol (Vitamin D3) 2,000 unit PO DAILY 03/10/18 [Vitamin D3] insulin glargine (U-100) 100 68 unit SUBCUT QHS #15 ml 08/02/18 unit/mL (3 mL) subcutaneous pen insulin lispro (U- 100) 100 14 unit SC TID #15 ml 08/02/18 unit/mL subcutaneous pen Maternal Family History: Family History (Last Reviewed 08/02/18 @ 14:19 by Jocelyn Barlow) Grandfather Diabetes Leukemia Grandmother Diabetes Mother Diabetes Hypertension Father Prostate cancer Grandfather Myocardial infarction Family History: - - Patient notes a maternal family history of diabetes. Paternal Family History: Family History (Last Reviewed 08/02/18 @ 14:19 by Jocelyn Barlow) Grandfather Diabetes Leukemia Grandmother Diabetes Mother Diabetes Hypertension Father Prostate cancer Grandfather Myocardial infarction Family History: - - Patient notes a paternal family history of prostate cancer, hypertension and diabetes. Smoking Status: Never smoker Physical Exam Vital Signs Temp Pulse Resp BP 97.0 F L 97 16 127/70 H 11/22/18 11:34 11/22/18 11:34 11/22/18 11:34 11/22/18 11:34 General: Alert, Oriented x3, Cooperative, No apparent distress HEENT: Atraumatic, Normocephalic Lungs: Normal air movement Psych/Mental Status: Normal Affect Assessment/Plan Today represents a final session of HBO therapy here. She had 40 sessions of Forteo approved. She moved to [place] to be with family and will continue wound care/HBO therapy there. She was discharged in stable condition.
--- NOTE | 2018-11-22 17:06 | PCM.WC.PN ---
(1) Chronic ulcer of left foot with necrosis of muscle Status: Chronic Current Visit: Yes Code(s): L97.523 - Non-pressure chronic ulcer of other part of left foot with necrosis of muscle (2) Malnutrition Status: Chronic Current Visit: Yes Code(s): E46 - Unspecified protein-calorie malnutrition (3) Delayed wound healing Status: Chronic Current Visit: Yes Code(s): T14.8XXD - Other injury of unspecified body region, subsequent encounter (4) Type 2 diabetes mellitus with diabetic polyneuropathy Status: Chronic Current Visit: Yes Code(s): E11.42 - Type 2 diabetes mellitus with diabetic polyneuropathy (5) Obesity (BMI 30.0-34.9) Status: Chronic Current Visit: Yes Code(s): E66.9 - Obesity, unspecified Type of Wound Chief Complaint: Diabetic left foot ulceration, Camacho Grade 3 History of Wound: This 28-year-old female with uncontrolled diabetes returns to clinic for follow-up chronic left foot ulcer. she denies subjective fever, chill, nausea, vomiting. She has been compliant with the dressing recommendations. She does wear her forefoot offloading wide shoes. She continues hyperbaric oxygen therapy sessions and this is going well so far. She will transfer to a different wound healing center with hyperbaric oxygen therapy starting next week. Progress of Wound: Shi today came in for evaluation of her HBO treatments for continuation or not. Patient is coming up to her last 10 treatments. Upon evaluation left foot DFU still deep swelling cellulitis apparent infection in the foot using Fibracol at this time for keeping the wound cleaned out. Wound does look clean with beefy skin exposed. Will suggest 20 more treatments for continuation of the HBO for healing purposes. - Physical Exam Vital Signs Temp Pulse Resp BP 97.0 F L 97 16 127/70 H 11/22/18 11:34 11/22/18 11:34 11/22/18 11:34 11/22/18 11:34 General: Alert, Oriented x3, Cooperative, No apparent distress HEENT: Atraumatic Extremities: No cyanosis, Capillary Refill Less than 3 Seconds, No Calf Tenderness - negative cameron and zeng signs bilateral, Diminished Peripheral Pulses, Edema Skin: Ulcer/ Wound - no purulence, no erythema, no infection, no streaking, no deep probing to bone. There is no longer any exposed tendon to the plantar left foot. There is a callus to the plantar right foot upon debridement there is no open ulcer noted Wound Measurements and Assessment WC - Nurse 1 - General Ulcer Measurement Start: 11/20/18 11:40 Freq: Status: Active Protocol: Activity Type Activity Date Activity User E-Sign Co-Sign Detail Recorded Client Recorded Date Recorded By Document 11/22/18 11:34 AMMON [id number] 11/22/18 11:37 11/22/18 11:34 Wound Center Nurse 1 [Ulcer Assessment] #1 LEFT PLANTAR -Combined with other wound No -Current Size (cm) - Length 3.6 -Current Size (cm) - Width 2.7 -Current Size (cm) - Depth 0.9 -Total Square Cm 9.72 -Photo Taken Yes -Epithelialization Large 67-100% -Tunneling No -Undermining/Tunneling No -Circular Undermining No -Exudate Amt Large -Exudate Type Serosanguineous -Wound Margin Flat & Intact -Granulation Amt Large (67-100%) -Granulation Quality Red -Slough/Fibrin Yes -Necrosis Amt Small (1-33%) -Necrotic Tissue Type Adherent Slough -Structure Exposed N/A -Texture (Hceri-wound Skin Appearance) Assessed Callus -Moisture (Cheri-wound Skin Appearance Assessed ) Dry/Scaly -Color (Cheri-wound Skin Appearance) Assessed -Temperature (Cheri-wound Skin No Abnormality Appearance) (Pt Warm) -Tenderness on Palpation (Cheri-wound No Skin Appearance) -Ulcer Cleansing Rinsed/ Irrigated with Saline -Foul Odor after Cleansing No -Anesthetic Used 4% Lidocaine Solution [Edema Assessment] -Lower Limb Edema Present NA - Nurse 2 - General Ulcer CM Notes Start: 11/20/18 11:40 Freq: Status: Active Protocol: Activity Type Activity Date Activity User E-Sign Co-Sign Detail Recorded Client Recorded Date Recorded By Document 11/22/18 12:29 AN [id number] 11/22/18 12:32 AN 11/22/18 12:29 Wound Center Nurse 2 [Procedure/Treatment] #1 LEFT PLANTAR -Post Debridement Size (cm) - Length 3.7 -Post Debridement Size (cm) - Width 2.8 -Post Debridement Size (cm) - Depth 0.9 -Total Square Cm 10.36 -Wound/Ulcer Outcome Not Healed -Ulcer Cleansing Rinsed/ Irrigated with Saline -Foul Odor after Cleansing No -Bioengineered Tissue No -Bleeding Controlled with Pressure -Offloading Yes -Type of Offloading Surgical Shoe -Treatment Response Procedure Tolerated Well [See Physician Procedure note for Specifics] Pain Scale: 0-10 Numeric [Pain] -Is Patient Pain Free? Yes Musculoskeletal: No Tenderness to Palpation of Joints or Extremities, Muscle Wasting, - - Dorsal contraction of lesser digits with prominent metatarsal heads Neurological: - - Lack of epicritic sensation consistent with neuropathy bilateral lower extremities Psych/Mental Status: Normal Affect, Appropriate Debridement Note Post-Debridement Measurements/Treatment WC - Nurse 2 - General Ulcer CM Notes Start: 11/20/18 11:40 Freq: Status: Active Protocol: Activity Type Activity Date Activity User E-Sign Co-Sign Detail Recorded Client Recorded Date Recorded By Document 11/22/18 12:29 [id number] 11/22/18 12:32 AN 11/22/18 12:29 Wound Center Nurse 2 #1 LEFT PLANTAR -Post Debridement Size (cm) - Length 3.7 -Post Debridement Size (cm) - Width 2.8 -Post Debridement Size (cm) - Depth 0.9 -Total Square Cm 10.36 -Wound/Ulcer Outcome Not Healed -Ulcer Cleansing Rinsed/ Irrigated with Saline -Foul Odor after Cleansing No -Bioengineered Tissue No -Bleeding Controlled with Pressure -Offloading Yes -Type of Offloading Surgical Shoe -Treatment Response Procedure Tolerated Well Pain Scale: 0-10 Numeric Is Patient Pain Free? Yes Wound debrided: plantar medial foot Laterality: Left Wound Grade/Stage: grade 3 Type of Debridement: Excisional debridement Anesthesia Used: 5% Lidocaine Gel Depth: in the subcutaneous layer Percentage of wound debrided: 100 Instrument Used: #15 blade Tissue Removed: fibrous, devitalized subcutaneous, biofilm, slough Severity: Fat Layer Exposed Amount of bleeding with debridement: Mild Bleeding Controlled with: Pressure Patient tolerated procedure well Assessment/Plan Active Problems (Last Reviewed 08/02/18 @ 14:19 by Jocelyn Barlow) Malnutrition (Chronic) Delayed wound healing (Chronic) 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 All of her ulcers to the right foot are healed today with full epithelialization. The callus was debrided on the right foot and there was no ulcer infection noted. Subcutaneous excisional ulcer debridement was performed today as noted in the clinical panel to the left foot. It is noted the tendon that was previously visualized on her left foot is no longer visualized and local inflammation and infection signs have resolved. A dressing consisting of fibricol was applied. To change daily at home as advised to left foot with Fibracol to the deepest part and Regranex to the remainder of the ulcer. She was reassured no local or systemic signs of illness are noted today. Her cellulitis from a few weeks ago seems to be completely resolved. She was advised to monitor for return of symptoms. To continue to follow-up for medical management with PCP and endocrinology. She has continued hyperbaric oxygen therapy sessions and this is going well. Additional sessions were recommended when she went for her hyperbaric oxygen therapy reassessment session with Dr. Shepard. It is noted she will be moving to a different center and I encouraged her to continue with a comprehensive wound healing plan and hyperbaric oxygen therapy if available. The patient was educated on the importance of diet on wound healing and instructed to increase protein and vitamin C intake. To use assistive devices. To continue follow-up with nutrition services. Her most recent noninvasive vascular studies were reviewed from April 2018 with bilateral ankle-brachial indices 1.23. Her results demonstrated normal arterial perfusion. Her venous duplex Doppler studies with reflux evaluation were also reviewed and the results were discussed. 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 I do recommend future vascular surgeon referral to see if intervention may be completed. She will consider venous intervention. I nswered her questions. Notes will be faxed to the [facility] [place] for medication purposes.
--- NOTE | 2018-11-22 17:09 | PN.PCM_ITS ---
(1) Chronic ulcer of left foot with necrosis of muscle Status: Chronic Current Visit: Yes Code(s): L97.523 - Non-pressure chronic ulcer of other part of left foot with necrosis of muscle (2) Malnutrition Status: Chronic Current Visit: Yes Code(s): E46 - Unspecified protein- calorie malnutrition (3) Delayed wound healing Status: Chronic Current Visit: Yes Code(s): T14.8XXD - Other injury of unspecified body region, subsequent encounter (4) Type 2 diabetes mellitus with diabetic polyneuropathy Status: Chronic Current Visit: Yes Code(s): E11.42 - Type 2 diabetes mellitus with diabetic polyneuropathy (5) Obesity (BMI 30.0-34.9) Status: Chronic Current Visit: Yes Code(s): E66.9 - Obesity, unspecified Type of Wound Chief Complaint: Diabetic left foot ulceration, Camacho Grade 3 History of Wound: This 28-year-old female with uncontrolled diabetes returns to clinic for follow-up chronic left foot ulcer. she denies subjective fever, chill, nausea, vomiting. She has been compliant with the dressing recommendations. She does wear her forefoot offloading wide shoes. She continues hyperbaric oxygen therapy sessions and this is going well so far. She will transfer to a different wound healing center with hyperbaric oxygen therapy starting next week. Progress of Wound: Shi today came in for evaluation of her HBO treatments for continuation or not. Patient is coming up to her last 10 treatments. Upon evaluation left foot DFU still deep swelling cellulitis apparent infection in the foot using Fibracol at this time for keeping the wound cleaned out. Wound does look clean with beefy skin exposed. Will suggest 20 more treatments for continuation of the HBO for healing purposes. - Physical Exam Vital Signs Temp Pulse Resp BP 97.0 F L 97 16 127/70 H 11/22/18 11:34 11/22/18 11:34 11/22/18 11:34 11/22/18 11:34 General: Alert, Oriented x3, Cooperative, No apparent distress HEENT: Atraumatic Extremities: No cyanosis, Capillary Refill Less than 3 Seconds, No Calf Tenderness - negative cameron and zeng signs bilateral, Diminished Peripheral Pulses, Edema Skin: Ulcer/ Wound - no purulence, no erythema, no infection, no streaking, no deep probing to bone. There is no longer any exposed tendon to the plantar left foot. There is a callus to the plantar right foot upon debridement there is no open ulcer noted Wound Measurements and Assessment WC - Nurse 1 - General Ulcer Measurement Start: 11/20/18 11:40 Freq: Status: Active Protocol: Activity Type Activity Date Activity User E-Sign Co-Sign Detail Recorded Client Recorded Date Recorded By Document 11/22/18 11:34 AMMON [id number] 11/22/18 11:37 11/22/18 11:34 Wound Center Nurse 1 [Ulcer Assessment] #1 LEFT PLANTAR -Combined with other wound No -Current Size (cm) - Length 3.6 -Current Size (cm) - Width 2.7 -Current Size (cm) - Depth 0.9 -Total Square Cm 9.72 -Photo Taken Yes -Epithelialization Large 67-100% -Tunneling No -Undermining/Tunneling No -Circular Undermining No -Exudate Amt Large -Exudate Type Serosanguineous -Wound Margin Flat & Intact -Granulation Amt Large (67-100%) -Granulation Quality Red -Slough/Fibrin Yes -Necrosis Amt Small (1-33%) -Necrotic Tissue Type Adherent Slough -Structure Exposed N/A -Texture (Cheri-wound Skin Appearance) Assessed Callus -Moisture (Cheri-wound Skin Appearance Assessed ) Dry/Scaly -Color (Cheri-wound Skin Appearance) Assessed -Temperature (Cheri-wound Skin No Abnormality Appearance) (Pt Warm) -Tenderness on Palpation (Cheri-wound No Skin Appearance) -Ulcer Cleansing Rinsed/ Irrigated with Saline -Foul Odor after Cleansing No -Anesthetic Used 4% Lidocaine Solution [Edema Assessment] -Lower Limb Edema Present NA - Nurse 2 - General Ulcer CM Notes Start: 11/20/18 11:40 Freq: Status: Active Protocol: Activity Type Activity Date Activity User E-Sign Co-Sign Detail Recorded Client Recorded Date Recorded By Document 11/22/18 12:29 AN [id number] 11/22/18 12:32 AN 11/22/18 12:29 Wound Center Nurse 2 [Procedure/Treatment] #1 LEFT PLANTAR -Post Debridement Size (cm) - Length 3.7 -Post Debridement Size (cm) - Width 2.8 -Post Debridement Size (cm) - Depth 0.9 -Total Square Cm 10.36 -Wound/Ulcer Outcome Not Healed -Ulcer Cleansing Rinsed/ Irrigated with Saline -Foul Odor after Cleansing No -Bioengineered Tissue No -Bleeding Controlled with Pressure -Offloading Yes -Type of Offloading Surgical Shoe -Treatment Response Procedure Tolerated Well [See Physician Procedure note for Specifics] Pain Scale: 0-10 Numeric [Pain] -Is Patient Pain Free? Yes Musculoskeletal: No Tenderness to Palpation of Joints or Extremities, Muscle Wasting, - - Dorsal contraction of lesser digits with prominent metatarsal heads Neurological: - - Lack of epicritic sensation consistent with neuropathy bilateral lower extremities Psych/Mental Status: Normal Affect, Appropriate Debridement Note Post-Debridement Measurements/Treatment WC - Nurse 2 - General Ulcer CM Notes Start: 11/20/18 11:40 Freq: Status: Active Protocol: Activity Type Activity Date Activity User E-Sign Co-Sign Detail Recorded Client Recorded Date Recorded By Document 11/22/18 12:29 [id number] 11/22/18 12:32 AN 11/22/18 12:29 Wound Center Nurse 2 #1 LEFT PLANTAR -Post Debridement Size (cm) - Length 3.7 -Post Debridement Size (cm) - Width 2.8 -Post Debridement Size (cm) - Depth 0.9 -Total Square Cm 10.36 -Wound/Ulcer Outcome Not Healed -Ulcer Cleansing Rinsed/ Irrigated with Saline -Foul Odor after Cleansing No -Bioengineered Tissue No -Bleeding Controlled with Pressure -Offloading Yes -Type of Offloading Surgical Shoe -Treatment Response Procedure Tolerated Well Pain Scale: 0-10 Numeric Is Patient Pain Free? Yes Wound debrided: plantar medial foot Laterality: Left Wound Grade/Stage: grade 3 Type of Debridement: Excisional debridement Anesthesia Used: 5% Lidocaine Gel Depth: in the subcutaneous layer Percentage of wound debrided: 100 Instrument Used: #15 blade Tissue Removed: fibrous, devitalized subcutaneous, biofilm, slough Severity: Fat Layer Exposed Amount of bleeding with debridement: Mild Bleeding Controlled with: Pressure Patient tolerated procedure well Assessment/Plan Active Problems (Last Reviewed 08/02/18 @ 14:19 by Jocelyn Barlow) Malnutrition (Chronic) Delayed wound healing (Chronic) 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 All of her ulcers to the right foot are healed today with full epithelialization. The callus was debrided on the right foot and there was no ulcer infection noted. Subcutaneous excisional ulcer debridement was performed today as noted in the clinical panel to the left foot. It is noted the tendon that was previously visualized on her left foot is no longer visualized and local inflammation and infection signs have resolved. A dressing consisting of fibricol was applied. To change daily at home as advised to left foot with Fibracol to the deepest part and Regranex to the remainder of the ulcer. She was reassured no local or systemic signs of illness are noted today. Her cellulitis from a few weeks ago seems to be completely resolved. She was advised to monitor for return of symptoms. To continue to follow-up for medical management with PCP and endocrinology. She has continued hyperbaric oxygen therapy sessions and this is going well. Additional sessions were recommended when she went for her hyperbaric oxygen therapy reassessment session with Dr. Shepard. It is noted she will be moving to a different center and I encouraged her to continue with a comprehensive wound healing plan and hyperbaric oxygen therapy if available. The patient was educated on the importance of diet on wound healing and instructed to increase protein and vitamin C intake. To use assistive devices. To continue follow-up with nutrition services. Her most recent noninvasive vascular studies were reviewed from April 2018 with bilateral ankle-brachial indices 1.23. Her results demonstrated normal arterial perfusion. Her venous duplex Doppler studies with reflux evaluation were also reviewed and the results were discussed. 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 I do recommend future vascular surgeon referral to see if intervention may be completed. She will consider venous intervention. I nswered her questions. Notes will be faxed to the [facility] for medication purposes.
== END 2018-12-17 23:59 ==
LOC: WC 09:00
PROVIDERS: Family Provider Internal Medicine; PCP Internal Medicine; Referring Provider Podiatrist; Visit Provider Podiatrist
DX: E11.621 Type 2 diabetes mellitus with foot ulcer (principal); E11.42 Type 2 diabetes mellitus with diabetic polyneuropathy; E66.9 Obesity, unspecified; Z71.3 Dietary counseling and surveillance; E11.65 Type 2 diabetes mellitus with hyperglycemia; L97.522 Non-pressure chronic ulcer of other part of left foot with fat layer exposed; E11.51 Type 2 diabetes mellitus with diabetic peripheral angiopathy without gangrene; M20.42 Other hammer toe(s) (acquired), left foot; M20.41 Other hammer toe(s) (acquired), right foot; Z79.4 Long term (current) use of insulin
CPT/HCPCS: 11042; 82962; 99183; G0277